=== PATIENT | female | born 1955 | race Caucasian/White ===

== ENCOUNTER 2016-07-29 14:46 | Inpatient (IN) | payer BC, MEDICAID ==
[2016-07-29] MEDS ORDERED: Bumetanide 2.5 MG/10 ML MDV IVPUSH ONE (15:15)
[2016-07-29] MEDS ORDERED: Albuterol 0.083% 2.5 MG/3 ML Neb Soln NEB PRN (16:06)
[2016-07-29] MEDS ORDERED: Polyethylene Glycol 3350 Powder 17 GM Packet PO PRN (16:06)
[2016-07-29] MEDS ORDERED: Ondansetron 4 MG Tab.DIS PO PRN (16:06)
[2016-07-29] MEDS ORDERED: Sodium Chloride 0.9% 10 ML Syringe FLUSH PRN (16:06)
[2016-07-29] MEDS ORDERED: Magnesium Hydroxide 400 MG/5 ML Susp 30 ML Cup PO PRN (16:06)
[2016-07-29] MEDS ORDERED: Benzonatate 100 MG Cap PO PRN (16:18)
--- NOTE | 2016-07-29 16:32 | PCM.HP ---
H&P History of Present Illness - General Date of Service: 07/29/16 Admit Problem/Dx: Admission Diagnosis/Problem Admission Diagnosis/Problem CHF, Congestive heart failure Source of Information: Patient, Family, Provider History Limitations: Reports: No limitations - History of Present Illness Initial Comments - Free Text/Narative: Dipti presents as a direct admission from the internal medicine clinic where she presented with fever and shortness of breath. She hasn't felt well for the last several days but has noticed subjective fevers at home as well as progressive shortness of breath and a dry cough. She has not measured any temperatures at home. She complains of some mild intermittent crampy abdominal pain but doesn't seem to have trigger. Comes and goes on its own. She has not had any diarrhea. She feels a little more short of breath than usual and reports an increase in her dry cough compared to baseline. She does have some pain in her chest but only with coughing. She hasn't noticed much of an increase in her lower extremity swelling but did note in the clinic today that her weight was up 11 pounds from 2 weeks ago. She does admit that she has not been keeping track of her weight for the last few days. She has not noticed any change in urinary frequency, urgency and does not have dysuria. Appetite has been fine. Energy has been decreased the past few days. After evaluation in the clinic there was concern about congestive heart failure with her weight gain as well as probable urinary tract infection. Direct admission was recommended. Chest Pain Score (Numeric/FACES): 6 - Related Data Allergies/Adverse Reactions: Allergies Allergy/AdvReac Type Severity Reaction Status Date / Time cephalexin monohydrate Allergy Unknown flusing Verified 07/12/16 17:02 [From Keflex] levofloxacin [Levofloxacin] Allergy Rash Verified 07/12/16 17:02 amoxicillin [Amoxicillin] AdvReac Vomiting Verified 07/12/16 17:02 amoxicillin trihydrate AdvReac Vomiting Verified 07/12/16 17:02 [From Augmentin] erythromycin base AdvReac Nausea and Verified 07/12/16 17:02 [Erythromycin Base] Vomiting potassium clavulanate AdvReac Vomiting Verified 07/12/16 17:02 [From Augmentin] Home Medications: Home Meds Albuterol [Ventolin HFA] 2 puff INH ASDIRECTED PRN 03/01/13 [History] Escitalopram [Lexapro] 30 mg PO BEDTIME 03/01/13 [History] Ipratropium/Albuterol Sulfate [Duoneb 0.5 MG-3 MG/3 ML] 3 ml INH QID 03/01/13 [ History] Metoprolol Succinate [Toprol XL] 25 mg PO BEDTIME 03/01/13 [History] Verapamil HCl [Verelan] 180 mg PO BIDAC 03/01/13 [History] Aspirin 81 mg PO DAILY 08/30/13 [History] Simvastatin [Zocor] 10 mg PO BEDTIME 08/30/13 [History] Magnesium Oxide 400 mg PO BID 09/01/13 [History] Lactobacillus Acidophilus [Probiotic] 1 cap PO BID 04/05/14 [History] Cyclobenzaprine [Flexeril] 10 mg PO TID PRN 09/27/14 [History] Folic Acid 1 mg PO DAILY 09/27/14 [History] metFORMIN [Glucophage] 850 mg PO BID 09/27/14 [History] Gabapentin [Neurontin] 300 mg PO BID 03/28/15 [History] Lisinopril 20 mg PO DAILY 03/28/15 [History] Oxybutynin [Oxybutynin ER] 10 mg PO DAILY 03/28/15 [History] Promethazine [Phenergan] 25 mg PO Q8H PRN 03/28/15 [History] traZODone 50 mg PO BEDTIME 03/28/15 [History] LORazepam [Ativan] 0.5 mg PO ASDIRECTED PRN 04/24/15 [History] Potassium Chloride [Klor-Con M20] 20 meq PO BID #60 tab.er 07/29/15 [Rx] Cyanocobalamin (Vitamin B12) [Vitamin B12] 1,000 mcg IM Q30D 09/26/15 [History] Ergocalciferol (Vitamin D2) [Vitamin D2] 50,000 unit PO WEEKLY 09/26/15 [History ] Ferrous Sulfate 325 mg PO DAILY 09/26/15 [History] Fluticasone/Salmeterol [Advair Diskus 500-50] 1 puff INH BID 12/05/15 [History] azaTHIOprine [Azathioprine] 150 mg PO DAILY 12/05/15 [History] ALPRAZolam [Alprazolam] 0.25 mg PO ASDIRECTED 04/12/16 [History] Isosorbide Mononitrate [Isosorbide Mononitrate ER] 30 mg PO DAILY 04/12/16 [ History] Morphine Sulfate 15 mg PO Q4H PRN 04/12/16 [History] Insulin Detemir [Levemir Flextouch] 30 units SQ BEDTIME 05/10/16 [History] Prednisone [IMW: predniSONE] 20 mg PO WITHBREAKFAST 05/10/16 [History] Sucralfate [Carafate] 1 gm PO QIDACANDBED 05/10/16 [History] Bumetanide [Bumex] 2 mg PO BID #60 tablet 05/17/16 [Rx] Insulin Aspart [NovoLOG] 10 unit SUBCUT TIDMEALS 06/05/16 [History] Pantoprazole [Protonix] 40 mg PO DAILY 07/13/16 [History] Clotrimazole [Mycelex] 10 mg PO DAILY 07/29/16 [History] Past Medical History HEENT History: Reports: Impaired vision Cardiovascular History: Reports: Hypertension, SOB on exertion, Other (see below ) Other Cardiovascular History: Extra heart beat Respiratory History: Reports: Asthma, Bronchitis, recurrent, COPD, Pneumonia, recurrent, SOB, Other (see below) Other Respiratory History: Home O2 and nebs Gastrointestinal History: Reports: Cholelithiasis, GERD, Other (see below) Other Gastrointestinal History: history of bezoars Genitourinary History: Reports: Other (see below) Other Genitourinary History: mass by bladder taken out non cancer 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, Musculoskeletal History: Reports: Back pain, chronic, Osteoarthritis, RA Neurological History: Reports: Migraines Psychiatric History: Reports: Depression Endocrine/Metabolic History: Reports: Diabetes, type II, Obesity/BMI 30+ Hematologic History: Reports: B12 deficiency Immunologic History: Reports: Other (see below) Other Immunologic History: on medication that affects immunity Oncologic (Cancer) History: Reports: None Dermatologic History: Reports: None - Infectious Disease History Infectious Disease History: Reports: Chicken pox, Measles, Mumps - Past Surgical History HEENT Surgical History: Reports: Cataract surgery, Tonsillectomy, Other (see below) Other HEENT Surgeries/Procedures: implanted lens in r eye Cardiovascular Surgical History: Reports: None Respiratory Surgical History: Reports: None GI Surgical History: Reports: Cholecystectomy, Colonoscopy, EGD Female Surgical History: Reports: Hysterectomy, Tubal ligation, Other (see below) Other Female Surgeries/Procedures: Tubal plasty Endocrine Surgical History: Reports: None Neurological Surgical History: Reports: None Musculoskeletal Surgical History: Reports: Knee replacement, Other (see below) Other Musculoskeletal Surgeries/Procedures:: Right knee Dermatological Surgical History: Reports: None Social & Family History - Family History HEENT: Reports: Cataract Cardiac: Reports: CAD Respiratory: Reports: Asthma : Reports: Other (see below) Other Family History: mom kidney CA Musculoskeletal: Reports: Arthritis, RA Neurological: Reports: CVA, Seizure Endocrine/Metabolic: Reports: Diabetes, type II - Tobacco Use Smoking Status *Q: Never Smoker Years of Tobacco use: 15 Packs/Tins Daily: 1 Used Tobacco, but Quit: Yes Month Tobacco Last Used: 1981 Second Hand Smoke Exposure: No - Caffeine Use Caffeine Use: Reports: None Other Caffeine Use: 3 bottles a day - Alcohol Use Days Per Week of Alcohol Use: 0 - Recreational Drug Use Recreational Drug Use: No - Living Situation & Occupation Living situation: Reports: (lives one block from Hospital, 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 Pertinent positives and negatives are noted in the history of present illness. All other systems were reviewed and were negative except as noted. Exam - Exam Exam: See Below - Vital Signs Vital Signs: Last Vital Signs Temp 38.1 C 07/29/16 15:04 Pulse 100 07/29/16 15:04 Resp BP 135/86 07/29/16 15:22 Pulse Ox 92 L 07/29/16 15:04 Weight: 139.253 kg - Exam Quality Assessment: supplemental oxygen. No: urinary catheter General: alert, oriented, cooperative, mild distress HEENT: Mucosa moist & pink. No: Scleral icterus Neck: supple, trachea midline Lungs: Normal respiratory effort, Rales (mild both lung bases). No: Wheezing Cardiovascular: regular rate, regular rhythm, systolic murmur (left lower sternal border) Abdomen: normal bowel sounds, soft. No: distention, tenderness Back Exam: normal inspection, full range of motion Extremities: normal pulses, edema (mild pitting edema to near the knee bilaterally). No: cyanosis Peripheral Pulses: 2+: dorsalis pedis (L), dorsalis pedis (R) Skin: warm, dry, intact Neuro Extensive - Mental Status: alert, oriented x3, nl response to commands Neuro Extensive - Motor, Sensory, Reflexes: CN II-XII intact. No: dysarthria, abnormal motor, tremor Psychiatric: alert, normal affect *Q Meaningful Use (ADM) - VTE *Q VTE Criteria *Q: - Stroke *Q Stroke Criteria *Q: - AMI *Q AMI Criteria *Q: - Problem List (1) Acute cystitis SNOMED Code(s): 83173179 ICD Code: N30.00 - ACUTE CYSTITIS WITHOUT HEMATURIA Status: Acute Current Visit: Yes Qualifiers: Hematuria presence: without hematuria Qualified Code(s): N30.00 - Acute cystitis without hematuria (2) (HFpEF) heart failure with preserved ejection fraction SNOMED Code(s): 49118087 ICD Code: I50.30 - UNSPECIFIED DIASTOLIC (CONGESTIVE) HEART FAILURE Status : Chronic Current Visit: No (3) Diabetes mellitus type 2 SNOMED Code(s): 32123109 ICD Code: E11.9 - TYPE 2 DIABETES MELLITUS WITHOUT COMPLICATIONS Status: Chronic Priority: High Current Visit: No (4) Rheumatoid arthritis SNOMED Code(s): 52015174 ICD Code: M06.9 - RHEUMATOID ARTHRITIS, UNSPECIFIED Status: Chronic Priority: Medium Current Visit: No Qualifiers: Rheumatoid arthritis location: multiple sites Rheumatoid factor presence: unspecified presence Qualified Code(s): M06.9 - Rheumatoid arthritis, unspecified Problem List Initiated/Reviewed/Updated: Yes Orders Last 24hrs: Active Orders 24 hr Category Date Time Status Patient Status [ADT] Routine ADT 07/29/16 16:06 Active Diabetes Education [RC] Click to Edit Care 07/29/16 16:22 Ordered Intake and Output [RC] QSHIFT Care 07/29/16 16:07 Active Notify Provider Vital Signs [RC] ASDIRECTED Care 07/29/16 16:07 Active Notify Provider [RC] PRN Care 07/29/16 16:22 Ordered Oxygen Therapy [RC] PRN Care 07/29/16 16:06 Active RT Aerosol Therapy [RC] ASDIRECTED Care 07/29/16 16:09 Active Up With Assistance [RC] ASDIRECTED Care 07/29/16 16:06 Active VTE/DVT Education [RC] Per Unit Routine Care 07/29/16 16:06 Active Vital Signs [RC] Q4H Care 07/29/16 16:06 Active Consistent Carbohydrate Diet [DIET] Diet 07/29/16 Dinner Active BASIC METABOLIC PANEL,BMP [CHEM] AM Lab 07/30/16 05:11 Ordered CBC W/O DIFF,HEMOGRAM [HEME] AM Lab 07/30/16 05:11 Ordered CULTURE URINE [RM] Routine Lab 07/29/16 16:05 Received GLUCOSE POC LAB TO COLLECT [POC] QIDACANDBED Lab 07/29/16 16:30 Ordered GLUCOSE POC LAB TO COLLECT [POC] QIDACANDBED Lab 07/29/16 21:00 Ordered GLUCOSE POC LAB TO COLLECT [POC] QIDACANDBED Lab 07/30/16 07:30 Ordered GLUCOSE POC LAB TO COLLECT [POC] QIDACANDBED Lab 07/30/16 11:30 Ordered GLUCOSE POC LAB TO COLLECT [POC] QIDACANDBED Lab 07/30/16 16:30 Ordered GLUCOSE POC LAB TO COLLECT [POC] QIDACANDBED Lab 07/30/16 21:00 Ordered GLUCOSE POC LAB TO COLLECT [POC] QIDACANDBED Lab 07/31/16 07:30 Ordered GLUCOSE POC LAB TO COLLECT [POC] QIDACANDBED Lab 07/31/16 11:30 Ordered GLUCOSE POC LAB TO COLLECT [POC] QIDACANDBED Lab 07/31/16 16:30 Ordered GLUCOSE POC LAB TO COLLECT [POC] QIDACANDBED Lab 07/31/16 21:00 Ordered GLUCOSE POC LAB TO COLLECT [POC] QIDACANDBED Lab 08/01/16 07:30 Ordered GLUCOSE POC LAB TO COLLECT [POC] QIDACANDBED Lab 08/01/16 11:30 Ordered GLUCOSE POC LAB TO COLLECT [POC] QIDACANDBED Lab 08/01/16 16:30 Ordered GLUCOSE POC LAB TO COLLECT [POC] QIDACANDBED Lab 08/01/16 21:00 Ordered GLUCOSE POC LAB TO COLLECT [POC] QIDACANDBED Lab 08/02/16 07:30 Ordered GLUCOSE POC LAB TO COLLECT [POC] QIDACANDBED Lab 08/02/16 11:30 Ordered GLUCOSE POC LAB TO COLLECT [POC] QIDACANDBED Lab 08/02/16 16:30 Ordered GLUCOSE POC LAB TO COLLECT [POC] QIDACANDBED Lab 08/02/16 21:00 Ordered GLUCOSE POC LAB TO COLLECT [POC] QIDACANDBED Lab 08/03/16 07:30 Ordered GLUCOSE POC LAB TO COLLECT [POC] QIDACANDBED Lab 08/03/16 11:30 Ordered GLUCOSE POC LAB TO COLLECT [POC] QIDACANDBED Lab 08/03/16 16:30 Ordered GLUCOSE POC LAB TO COLLECT [POC] QIDACANDBED Lab 08/03/16 21:00 Ordered GLUCOSE POC LAB TO COLLECT [POC] QIDACANDBED Lab 08/04/16 07:30 Ordered GLUCOSE POC LAB TO COLLECT [POC] QIDACANDBED Lab 08/04/16 11:30 Ordered ALPRAZolam [Xanax] Med 07/29/16 16:12 Ordered 0.25 mg PO TID PRN Acetaminophen [Tylenol] Med 07/29/16 16:06 Ordered 650 mg PO Q4H PRN Albuterol [Proventil Neb Soln] Med 07/29/16 16:06 Ordered 2.5 mg NEB Q4H PRN Albuterol/Ipratropium [DuoNeb 3.0-0.5 MG/3 ML] Med 07/29/16 22:00 Ordered 3 ml NEB QID Aspirin Med 07/30/16 09:00 Ordered 81 mg PO DAILY Benzonatate [Tessalon Perles] Med 07/29/16 16:18 Ordered 100 mg PO TID PRN Clotrimazole [Mycelex] Med 07/30/16 09:00 Ordered 10 mg PO DAILY Enoxaparin [Lovenox] Med 07/30/16 09:00 Ordered 40 mg SUBCUT DAILY Escitalopram [Lexapro] Med 07/29/16 21:00 Ordered 30 mg PO BEDTIME Ferrous Sulfate Med 07/30/16 09:00 Ordered 325 mg PO DAILY Fluticasone/Salmeterol [Advair Diskus 500-50] Med 07/29/16 21:00 Ordered 1 puff INH BID Folic Acid Med 07/30/16 09:00 Ordered 1 mg PO DAILY Gabapentin [Neurontin] Med 07/29/16 21:00 Ordered 300 mg PO BID Insulin Aspart [NovoLOG] Med 07/29/16 17:00 Ordered 10 unit SUBCUT TIDMEALS Insulin Aspart [NovoLOG] Med 07/29/16 17:00 Ordered See Protocol SUBCUT QIDACANDBED Insulin Detemir [Levemir] Med 07/29/16 21:00 Ordered 30 unit SUBCUT BEDTIME Isosorbide Mononitrate [Imdur] Med 07/30/16 09:00 Ordered 30 mg PO DAILY LORazepam [Ativan] Med 07/29/16 16:06 Ordered 0.5 - 1 mg IV Q4H PRN Lactobacillus Acidophilus [Probiotic] Med 07/29/16 21:00 Ordered 1 cap PO BID Lisinopril [Prinivil] Med 07/30/16 09:00 Ordered 20 mg PO DAILY Magnesium Hydroxide [Milk of Magnesia] Med 07/29/16 16:06 Ordered 30 ml PO Q12H PRN Magnesium Oxide Med 07/29/16 21:00 Ordered 400 mg PO BID Metoprolol Succinate [Toprol XL] Med 07/29/16 21:00 Ordered 25 mg PO BEDTIME Morphine Med 07/29/16 16:12 Ordered 30 mg PO Q4H PRN Ondansetron [Zofran ODT] Med 07/29/16 16:06 Ordered 4 mg PO Q6H PRN Oxybutynin [Oxybutynin ER] Med 07/30/16 09:00 Ordered 10 mg PO DAILY Pantoprazole [Protonix] Med 07/30/16 07:30 Ordered 40 mg PO ACBREAKFAST Polyethylene Glycol 3350 [MiraLAX] Med 07/29/16 16:06 Ordered 17 gm PO DAILY PRN Potassium Chloride [Klor-Con M20] Med 07/29/16 21:00 Ordered 20 meq PO BID Promethazine [Phenergan] Med 07/29/16 16:12 Ordered 25 mg PO Q8H PRN Simvastatin [Zocor] Med 07/29/16 21:00 Ordered 10 mg PO BEDTIME Sodium Chloride 0.9% [Saline Flush] Med 07/29/16 16:06 Ordered 10 ml FLUSH ASDIRECTED PRN Sucralfate [Carafate] Med 07/29/16 17:00 Ordered 1 gm PO QIDACANDBED Verapamil HCl [Verelan] Med 02/27/17 16:30 Ordered 180 mg PO BIDAC azaTHIOprine [Imuran] Med 07/30/16 09:00 Ordered 150 mg PO DAILY cefTAZidime [Fortaz] 1 gm Med 07/29/16 22:00 Ordered Sodium Chloride 0.9% [Normal Saline] 50 ml IV Q8HR metFORMIN [Glucophage] Med 07/29/16 21:00 Ordered 850 mg PO BID predniSONE Med 07/29/16 16:30 Ordered 20 mg PO BIDAC traZODone Med 07/29/16 21:00 Ordered 50 mg PO BEDTIME Saline Lock Insert [OM.PC] Routine Oth 07/29/16 16:06 Ordered Resuscitation Status Routine Resus Stat 07/29/16 16:06 Ordered Medication Orders Acetaminophen (Tylenol) 650 mg PO Q4H PRN PRN Reason: Pain (Mild 1-3)/fever Albuterol (Proventil Neb Soln) 2.5 mg NEB Q4H PRN PRN Reason: Shortness Of Breath/wheezing Albuterol/Ipratropium (Duoneb 3.0-0.5 Mg/3 Ml) 3 ml NEB QIDRT [facility] Alprazolam (Xanax) 0.25 mg PO TID PRN PRN Reason: Anxiety Aspirin (Aspirin) 81 mg PO DAILY [facility] Azathioprine (Imuran) 150 mg PO DAILY [facility] Benzonatate (Tessalon Perles) 100 mg PO TID PRN PRN Reason: Cough Clotrimazole (Mycelex) 10 mg PO DAILY [facility] Enoxaparin Sodium (Lovenox) 40 mg SUBCUT DAILY [facility] Escitalopram Oxalate (Lexapro) 30 mg PO BEDTIME [facility] Ferrous Sulfate (Ferrous Sulfate) 325 mg PO DAILY [facility] Folic Acid (Folic Acid) 1 mg PO DAILY [facility] Gabapentin (Neurontin) 300 mg PO BID [facility] Ceftazidime 1 gm/ Sodium (Chloride) 50 mls @ 100 mls/hr IV Q8HR [facility] Isosorbide Mononitrate (Imdur) 30 mg PO DAILY [facility] Lisinopril (Prinivil) 20 mg PO DAILY [facility] Lorazepam (Ativan) 0.5 - 1 mg IV Q4H PRN PRN Reason: Nausea/Vomiting Magnesium Hydroxide (Milk Of Magnesia) 30 ml PO Q12H PRN PRN Reason: Constipation Magnesium Oxide (Magnesium Oxide) 400 mg PO BID [facility] Metformin HCl (Glucophage) 850 mg PO BID [facility] Metoprolol Succinate (Toprol Xl) 25 mg PO BEDTIME [facility] Morphine Sulfate (Morphine) 30 mg PO Q4H PRN PRN Reason: shortness of breath Non-Formulary Medication (Fluticasone/Salmeterol [Advair Diskus 500-50]) 1 puff INH BID [facility] Non-Formulary Medication (Lactobacillus Acidophilus [Probiotic]) 1 cap PO BID [facility] Non-Formulary Medication (Oxybutynin [Oxybutynin Er]) 10 mg PO DAILY [facility] Non-Formulary Medication (Simvastatin [Zocor]) 10 mg PO BEDTIME [facility] Non-Formulary Medication (Verapamil Hcl [Verelan]) 180 mg PO BIDAC [facility] Ondansetron HCl (Zofran Odt) 4 mg PO Q6H PRN PRN Reason: Nausea able to take PO Pantoprazole Sodium (Protonix) 40 mg PO ACBREAKFAST [facility] Polyethylene Glycol (Miralax) 17 gm PO DAILY PRN PRN Reason: Constipation Potassium Chloride (Klor-Con M20) 20 meq PO BID [facility] Prednisone (Prednisone) 20 mg PO BIDAC [facility] Promethazine HCl (Phenergan) 25 mg PO Q8H PRN PRN Reason: Nausea Sodium Chloride (Saline Flush) 10 ml FLUSH ASDIRECTED PRN PRN Reason: Keep Vein Open Sucralfate (Carafate) 1 gm PO QIDACANDBED [facility] Trazodone HCl (Trazodone) 50 mg PO BEDTIME [facility] Assessment/Plan Comment:: Assessment and plan - Acute cystitis - no symptoms but urine sample suggestive of infection. Low- grade temperatures. History of similar. Antibiotics will be tricky with multiple allergies. -Urine culture -Ceftazidime Subacute exacerbation of congestive heart failure with preserved ejection fraction - weight is up 11 pounds from most recent stable dry weight. Probable trigger for the exacerbation as the infection. Hemodynamically stable at this time. -IV bumetanide twice daily -Monitor electrolytes -Continue medical management including beta marsha and long-acting nitrate -Morphine as needed for air hunger Rheumatoid arthritis - often has difficulty with increasing symptoms around the time of an infection. -Increase prednisone to 40 mg total daily dose Insulin-dependent diabetes mellitus, suboptimally controlled - anticipate bump in blood sugars with increased dose of prednisone. Sugars suboptimally controlled at baseline. -Continue long-acting insulin -Mealtime insulin -Sliding-scale Maintenance issues - - DVT prophylaxis - enoxaparin - GI prophylaxis - PPI - Nutrition - consistent carbohydrate diet - Dougherty catheter - not indicated CODE STATUS - full code Admission justification - This patient will be admitted for inpatient services and is medically appropriate meeting medical necessity for inpatient admission as outlined in my documentation. I reasonably expect the patient will require inpatient services that span a period time over 2 midnights. I reasonably expect this patient to be discharged or transferred within 96 hours after admission to the [facility]. Disposition - anticipate discharge to home after the hospital stay Primary care physician - Dr. Sunshine Bolivar M.D.
[2016-07-29] MEDS: Acetaminophen 325 MG Tab PO PRN (16:54)
[2016-07-29] MEDS: cefTAZidime 1 GM in Sodium Chloride 0.9% 50 ML IV SCH (17:11)
[2016-07-29] MEDS: Insulin Aspart 100 Units/ML 3 ML Pen SUBCUT SCH ×3 (17:11→22:37)
[2016-07-29] MEDS: Sucralfate 1 GM Tab PO SCH ×2 (17:16→22:29)
[2016-07-29] MEDS: Potassium Chloride 20 MEQ Tab.ER PO SCH (17:16)
[2016-07-29] MEDS: predniSONE 20 MG Tab PO SCH (17:17)
[2016-07-29] MEDS: Verapamil 180 MG Tab.ER PO SCH (17:17)
[2016-07-29] MEDS ORDERED: Insulin Detemir 100 Units/ML 3 ML Pen SUBCUT SCH (21:00)
[2016-07-29] MEDS ORDERED: Escitalopram 20 MG Tab PO SCH (21:00)
[2016-07-29] MEDS: Albuterol/Ipratropium 3.0-0.5 MG/3 ML Neb Soln NEB SCH (21:24)
[2016-07-29] MEDS: LORazepam 2 MG/ML MDV IV PRN (21:35)
[2016-07-29] MEDS: Lactobacillus Rhamnosus GG (Probiotic) Cap PO SCH (22:27)
[2016-07-29] MEDS: Formoterol/Mometasone 200-5 MCG 8.8 GM Inhaler IH SCH (22:28)
[2016-07-29] MEDS: Magnesium Oxide 400 MG Tab PO SCH (22:30)
[2016-07-29] MEDS: ESCITALOPRAM PO SCH ×2 (22:30)
[2016-07-29] MEDS: Gabapentin 300 MG Cap PO SCH (22:31)
[2016-07-29] MEDS: Simvastatin 20 MG Tab PO SCH (22:33)
[2016-07-29] MEDS: traZODone 50 MG Tab PO SCH (22:34)
[2016-07-29] MEDS: Metoprolol Succinate 25 MG Tab.ER PO SCH (22:34)
[2016-07-30] MEDS: ALPRAZolam 0.25 MG Tab PO PRN ×2 (00:33→21:21)
[2016-07-30] MEDS: cefTAZidime 1 GM in Sodium Chloride 0.9% 50 ML IV SCH ×3 (00:33→18:24)
[2016-07-30] MEDS: Acetaminophen 325 MG Tab PO PRN ×3 (04:55→13:16)
[2016-07-30] MEDS: Albuterol/Ipratropium 3.0-0.5 MG/3 ML Neb Soln NEB SCH ×4 (07:11→20:49)
[2016-07-30] MEDS: Formoterol/Mometasone 200-5 MCG 8.8 GM Inhaler IH SCH ×2 (07:11→21:03)
[2016-07-30] MEDS: Clotrimazole 10 MG Troche PO SCH (08:56)
[2016-07-30] MEDS: Isosorbide Mononitrate 30 MG Tab.ER PO SCH (08:56)
[2016-07-30] MEDS: Lisinopril 20 MG Tab PO SCH (08:57)
[2016-07-30] MEDS: Pantoprazole 40 MG Tab.CR PO SCH (08:57)
[2016-07-30] MEDS: Enoxaparin 40 MG/0.4 ML Syringe SUBCUT SCH (08:58)
[2016-07-30] MEDS: Oxybutynin 5 MG Tab PO SCH ×2 (09:00→21:04)
[2016-07-30] MEDS: Folic Acid 1 MG Tab PO SCH (09:01)
[2016-07-30] MEDS: Sucralfate 1 GM Tab PO SCH ×4 (09:01→21:04)
[2016-07-30] MEDS: Magnesium Oxide 400 MG Tab PO SCH ×2 (09:02→21:05)
[2016-07-30] MEDS: Aspirin 81 MG Tab.Chew PO SCH (09:02)
[2016-07-30] MEDS: Lactobacillus Rhamnosus GG (Probiotic) Cap PO SCH ×2 (09:02→21:04)
[2016-07-30] MEDS: Ferrous Sulfate 325 MG Tab PO SCH (09:03)
[2016-07-30] MEDS: Verapamil 180 MG Tab.ER PO SCH ×2 (09:04→17:31)
[2016-07-30] MEDS: Potassium Chloride 20 MEQ Tab.ER PO SCH ×2 (09:08→18:29)
[2016-07-30] MEDS: Gabapentin 300 MG Cap PO SCH ×2 (09:08→21:05)
[2016-07-30] MEDS: Insulin Aspart 100 Units/ML 3 ML Pen SUBCUT SCH ×7 (09:10→21:06)
[2016-07-30] MEDS: predniSONE 20 MG Tab PO SCH (09:14)
[2016-07-30] MEDS: Promethazine 25 MG Tab PO PRN (12:27)
--- NOTE | 2016-07-30 15:10 | PCM.PN ---
- General Info Date of Service: 07/30/16 Functional Status: Reports: pain controlled, tolerating diet - Review of Systems General: Reports: fever, weakness Pulmonary: Reports: shortness of breath, cough Cardiovascular: Reports: chest pain, edema Systems Review Comment:: no acute events overnight but does not feel well this morning. Aches all over the place and has no energy. She has been sleepier than usual. Still complaining of a dry cough and some increased shortness of breath. No complaints of abdominal pain or nausea. Feels weak and unsteady on her feet. Blood sugars have risen with the initiation of steroids. Blood pressures have dipped slightly throughout the day. She has had a nearly persistent temperature elevation throughout the morning. - Patient Data Vitals - most recent: Last Vital Signs Temp 38.3 C H 07/30/16 13:16 Pulse 93 07/30/16 13:09 Resp 18 07/30/16 10:33 BP 112/70 07/30/16 13:09 Pulse Ox 90 L 07/30/16 13:09 Weight - most recent: 136.078 kg I&O - last 24 hours: Intake & Output 07/30/16 07/30/16 07/30/16 06:59 14:59 22:59 Intake Total 120 410 Output Total 900 Balance -780 410 Lab Results last 24 hrs: Laboratory Results - last 24 hr 07/30/16 07/30/16 Range/Units 04:55 04:55 WBC 8.0 (4.5-11.0) K/uL RBC 4.33 (3.30-5.50) M/uL Hgb 10.8 L (12.0-15.0) g/dL Hct 37.3 (36.0-48.0) % MCV 86 (80-98) fL MCH 25 L (27-31) pg MCHC 29 L (32-36) % Plt Count 172 (150-400) K/uL Sodium 142 (140-148) mmol/L Potassium 3.9 (3.6-5.2) mmol/L Chloride 101 (100-108) mmol/L Carbon Dioxide 35 H (21-32) mmol/L Anion Gap 9.9 (5.0-14.0) mmol/L BUN 15 (7-18) mg/dL Creatinine 0.8 (0.6-1.0) mg/dL Est Cr Clr Drug Dosing 68.26 mL/min Estimated GFR (MDRD) > 60 (>60) Glucose 182 H (74-106) mg/dL Calcium 8.5 (8.5-10.1) mg/dL Frank Results last 24 hrs: Microbiology 07/29/16 16:05 Urine Culture - Preliminary Urine, Clean Catch Med Orders - Current: Current Medications Acetaminophen (Tylenol) 650 mg PO Q4H PRN PRN Reason: Pain (Mild 1-3)/fever Last Admin: 07/30/16 13:16 Dose: 650 mg Albuterol (Proventil Neb Soln) 2.5 mg NEB Q4H PRN PRN Reason: Shortness Of Breath/wheezing Albuterol/Ipratropium (Duoneb 3.0-0.5 Mg/3 Ml) 3 ml NEB QIDRT [facility] Last Admin: 07/30/16 11:10 Dose: 3 ml Alprazolam (Xanax) 0.25 mg PO TID PRN PRN Reason: Anxiety Last Admin: 07/30/16 00:33 Dose: 0.25 mg Aspirin (Aspirin) 81 mg PO DAILY [facility] Last Admin: 07/30/16 09:02 Dose: 81 mg Azathioprine (Imuran) 150 mg PO DAILY [facility] Last Admin: 07/30/16 09:00 Dose: 150 mg Benzonatate (Tessalon Perles) 100 mg PO TID PRN PRN Reason: Cough Last Admin: 07/30/16 08:59 Dose: 100 mg Bumetanide (Bumex) 2 mg IVPUSH BIDDIURETIC [facility] Clotrimazole (Mycelex) 10 mg PO DAILY [facility] Last Admin: 07/30/16 08:56 Dose: 10 mg Enoxaparin Sodium (Lovenox) 40 mg SUBCUT DAILY [facility] Last Admin: 07/30/16 08:58 Dose: 40 mg Escitalopram Oxalate 10 mg/ (Escitalopram Oxalate 20 mg) 30 mg PO BEDTIME [facility] Last Admin: 07/29/16 22:30 Dose: 30 mg Ferrous Sulfate (Ferrous Sulfate) 325 mg PO DAILY [facility] Last Admin: 07/30/16 09:03 Dose: 325 mg Folic Acid (Folic Acid) 1 mg PO DAILY [facility] Last Admin: 07/30/16 09:01 Dose: 1 mg Gabapentin (Neurontin) 300 mg PO BID [facility] Last Admin: 07/30/16 09:08 Dose: 300 mg Heparin Sodium (Porcine) (Heparin Lock Flush 100 Units/Ml Syringe) 500 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 Last Admin: 07/30/16 10:44 Dose: 500 units Ceftazidime 1 gm/ Sodium (Chloride) 50 mls @ 100 mls/hr IV Q8H [facility] Last Admin: 07/30/16 09:54 Dose: 100 mls/hr Azithromycin 500 mg/ Sodium (Chloride) 250 mls @ 250 mls/hr IV Q24H [facility] Insulin Aspart (Novolog) 0 unit SUBCUT QIDACANDBED [facility] PRN Reason: Protocol Last Admin: 07/30/16 13:04 Dose: 3 unit Insulin Aspart (Novolog) 10 unit SUBCUT TIDMEALS [facility] Last Admin: 07/30/16 13:06 Dose: 10 unit Insulin Detemir (Levemir) 40 unit SUBCUT BEDTIME [facility] Isosorbide Mononitrate (Imdur) 30 mg PO DAILY [facility] Last Admin: 07/30/16 08:56 Dose: 30 mg Lactobacillus Rhamnosus (Culturelle) 1 cap PO BID [facility] Last Admin: 07/30/16 09:02 Dose: 1 cap Lisinopril (Prinivil) 20 mg PO DAILY [facility] Last Admin: 07/30/16 08:57 Dose: 20 mg Lorazepam (Ativan) 0.5 - 1 mg IV Q4H PRN PRN Reason: Nausea/Vomiting Last Admin: 07/29/16 21:35 Dose: 1 mg Magnesium Hydroxide (Milk Of Magnesia) 30 ml PO Q12H PRN PRN Reason: Constipation Magnesium Oxide (Magnesium Oxide) 400 mg PO BID [facility] Last Admin: 07/30/16 09:02 Dose: 400 mg Metformin HCl (Glucophage) 850 mg PO BIDMEALS [facility] Last Admin: 07/30/16 08:55 Dose: 850 mg Methylprednisolone Sodium Succinate (Solu-Medrol) 62.5 mg IVPUSH Q8H [facility] Metoprolol Succinate (Toprol Xl) 25 mg PO BEDTIME [facility] Last Admin: 07/29/16 22:34 Dose: 25 mg Mometasone Furoate/Formoterol Fumar (Dulera 200-5 Mcg) 2 puff IH BIDRT [facility] Last Admin: 07/30/16 07:11 Dose: 2 puff Morphine Sulfate (Morphine) 30 mg PO Q4H PRN PRN Reason: shortness of breath Last Admin: 07/30/16 04:54 Dose: 30 mg Ondansetron HCl (Zofran Odt) 4 mg PO Q6H PRN PRN Reason: Nausea able to take PO Oxybutynin Chloride (Oxybutynin) 5 mg PO BID [facility] Last Admin: 07/30/16 09:00 Dose: 5 mg Pantoprazole Sodium (Protonix) 40 mg PO ACBREAKFAST [facility] Last Admin: 07/30/16 08:57 Dose: 40 mg Polyethylene Glycol (Miralax) 17 gm PO DAILY PRN PRN Reason: Constipation Potassium Chloride (Klor-Con M20) 20 meq PO BIDMEALS [facility] Last Admin: 07/30/16 09:08 Dose: 20 meq Promethazine HCl (Phenergan) 25 mg PO Q8H PRN PRN Reason: Nausea Last Admin: 07/30/16 12:27 Dose: 25 mg Simvastatin (Zocor) 10 mg PO BEDTIME [facility] Last Admin: 07/29/16 22:33 Dose: 10 mg Sodium Chloride (Saline Flush) 10 ml FLUSH ASDIRECTED PRN PRN Reason: Keep Vein Open Sucralfate (Carafate) 1 gm PO QIDACANDBED [facility] Last Admin: 07/30/16 12:29 Dose: 1 gm Trazodone HCl (Trazodone) 50 mg PO BEDTIME [facility] Last Admin: 07/29/16 22:34 Dose: 50 mg Verapamil HCl (Calan Sr) 180 mg PO BIDAC [facility] Last Admin: 07/30/16 09:04 Dose: 180 mg Discontinued Medications Bumetanide (Bumex) 2 mg IVPUSH ONETIME ONE Stop: 07/29/16 15:16 Last Admin: 07/29/16 15:22 Dose: 2 mg Heparin Sodium (Porcine) (Heparin Lock Flush 100 Units/Ml Syringe) Confirm Administered Dose 500 units .ROUTE .STK-MED ONE Stop: 07/29/16 15:15 Last Admin: 07/29/16 15:25 Dose: 500 units Heparin Sodium (Porcine) (Heparin Lock Flush 100 Units/Ml Syringe) Confirm Administered Dose 500 units .ROUTE .STK-MED ONE Stop: 07/29/16 22:03 Last Admin: 07/29/16 22:35 Dose: 500 units Heparin Sodium (Porcine) (Heparin Lock Flush 100 Units/Ml Syringe) Confirm Administered Dose 500 units .ROUTE .STK-MED ONE Stop: 07/30/16 00:32 Last Admin: 07/30/16 10:45 Dose: Not Given Insulin Detemir (Levemir) 30 unit SUBCUT BEDTIME [facility] Last Admin: 07/29/16 22:41 Dose: 30 units Prednisone (Prednisone) 20 mg PO BIDMEALS [facility] Last Admin: 07/30/16 09:14 Dose: 20 mg - Exam Quality Assessment: supplemental oxygen. No: urine catheter General: alert, oriented, cooperative, mild distress Neck: supple Lungs: Normal respiratory effort, Crackles (both bases), Rhonchi (mild exp throughout) Cardiovascular: regular rate, regular rhythm, no murmurs Abdomen: soft, no distension Extremities: no cyanosis, edema (pitting edema to midshin bilaterally ) Skin: warm, dry Psy/Mental Status: alert, normal affect - Problem List & Annotations (1) Acute cystitis SNOMED Code(s): 55435916 Code(s): N30.00 - ACUTE CYSTITIS WITHOUT HEMATURIA Status: Acute Current Visit: Yes Qualifiers: Hematuria presence: without hematuria Qualified Code(s): N30.00 - Acute cystitis without hematuria (2) (HFpEF) heart failure with preserved ejection fraction SNOMED Code(s): 35791454 Code(s): I50.30 - UNSPECIFIED DIASTOLIC (CONGESTIVE) HEART FAILURE Status: Chronic Current Visit: No (3) Diabetes mellitus type 2 SNOMED Code(s): 45888003 Code(s): E11.9 - TYPE 2 DIABETES MELLITUS WITHOUT COMPLICATIONS Status: Chronic Priority: High Current Visit: No (4) Rheumatoid arthritis SNOMED Code(s): 24145112 Code(s): M06.9 - RHEUMATOID ARTHRITIS, UNSPECIFIED Status: Chronic Priority: Medium Current Visit: No Qualifiers: Rheumatoid arthritis location: multiple sites Rheumatoid factor presence: unspecified presence Qualified Code(s): M06.9 - Rheumatoid arthritis, unspecified - Problem List Review Problem List Initiated/Reviewed/Updated: Yes - My Orders Last 24 Hours: My Active Orders 07/29/16 15:10 Heparin Sodium [Heparin Lock Flush 100 Units/ML Syringe] 500 units FLUSH ASDIRECTED PRN 07/29/16 16:05 CULTURE URINE [RM] Routine 07/29/16 16:06 Patient Status [ADT] Routine Oxygen Therapy [RC] PRN Up With Assistance [RC] ASDIRECTED VTE/DVT Education [RC] Per Unit Routine Vital Signs [RC] Q4H Acetaminophen [Tylenol] 650 mg PO Q4H PRN Albuterol [Proventil Neb Soln] 2.5 mg NEB Q4H PRN LORazepam [Ativan] 0.5 - 1 mg IV Q4H PRN Magnesium Hydroxide [Milk of Magnesia] 30 ml PO Q12H PRN Ondansetron [Zofran ODT] 4 mg PO Q6H PRN Polyethylene Glycol 3350 [MiraLAX] 17 gm PO DAILY PRN Sodium Chloride 0.9% [Saline Flush] 10 ml FLUSH ASDIRECTED PRN Saline Lock Insert [OM.PC] Routine Resuscitation Status Routine 07/29/16 16:07 Intake and Output [RC] QSHIFT Notify Provider Vital Signs [RC] ASDIRECTED 07/29/16 16:09 RT Aerosol Therapy [RC] ASDIRECTED 07/29/16 16:12 ALPRAZolam [Xanax] 0.25 mg PO TID PRN Morphine 30 mg PO Q4H PRN Promethazine [Phenergan] 25 mg PO Q8H PRN 07/29/16 16:18 Benzonatate [Tessalon Perles] 100 mg PO TID PRN 07/29/16 16:22 Diabetes Education [RC] Click to Edit Notify Provider [RC] PRN 07/29/16 16:30 Verapamil [Calan SR] 180 mg PO BIDAC 07/29/16 17:00 Insulin Aspart [NovoLOG] 10 unit SUBCUT TIDMEALS Insulin Aspart [NovoLOG] See Protocol SUBCUT QIDACANDBED Potassium Chloride [Klor-Con M20] 20 meq PO BIDMEALS Sucralfate [Carafate] 1 gm PO QIDACANDBED cefTAZidime [Fortaz] 1 gm Sodium Chloride 0.9% [Normal Saline] 50 ml IV Q8H metFORMIN [Glucophage] 850 mg PO BIDMEALS 07/29/16 21:00 Albuterol/Ipratropium [DuoNeb 3.0-0.5 MG/3 ML] 3 ml NEB QIDRT Escitalopram [Lexapro] 30 mg PO BEDTIME Gabapentin [Neurontin] 300 mg PO BID Lactobacillus Rhamnosus GG [Culturelle] 1 cap PO BID Magnesium Oxide 400 mg PO BID Metoprolol Succinate [Toprol XL] 25 mg PO BEDTIME Mometasone/Formoterol [Dulera 200-5 MCG] 2 puff IH BIDRT Simvastatin [Zocor] 10 mg PO BEDTIME traZODone 50 mg PO BEDTIME 07/29/16 Dinner Consistent Carbohydrate Diet [DIET] 07/30/16 07:30 Pantoprazole [Protonix] 40 mg PO ACBREAKFAST 07/30/16 09:00 Aspirin 81 mg PO DAILY Clotrimazole [Mycelex] 10 mg PO DAILY Enoxaparin [Lovenox] 40 mg SUBCUT DAILY Ferrous Sulfate 325 mg PO DAILY Folic Acid 1 mg PO DAILY Isosorbide Mononitrate [Imdur] 30 mg PO DAILY Lisinopril [Prinivil] 20 mg PO DAILY Oxybutynin 5 mg PO BID azaTHIOprine [Imuran] 150 mg PO DAILY 07/30/16 15:15 Azithromycin [Zithromax] 500 mg Sodium Chloride 0.9% [Normal Saline] 250 ml IV Q24H Bumetanide [Bumex] 2 mg IVPUSH BIDDIURETIC 07/30/16 16:00 methylPREDNISolone Sod Succ [Solu-MEDROL] 62.5 mg IVPUSH Q8H 07/30/16 16:30 GLUCOSE POC LAB TO COLLECT [POC] QIDACANDBED 07/30/16 21:00 GLUCOSE POC LAB TO COLLECT [POC] QIDACANDBED Insulin Detemir [Levemir] 40 unit SUBCUT BEDTIME 07/31/16 05:00 BASIC METABOLIC PANEL,BMP [CHEM] Timed CBC W/O DIFF,HEMOGRAM [HEME] Timed (1) 07/31/16 07:30 GLUCOSE POC LAB TO COLLECT [POC] QIDACANDBED 07/31/16 11:30 GLUCOSE POC LAB TO COLLECT [POC] QIDACANDBED 07/31/16 16:30 GLUCOSE POC LAB TO COLLECT [POC] QIDACANDBED 07/31/16 21:00 GLUCOSE POC LAB TO COLLECT [POC] QIDACANDBED 08/01/16 07:30 GLUCOSE POC LAB TO COLLECT [POC] QIDACANDBED 08/01/16 11:30 GLUCOSE POC LAB TO COLLECT [POC] QIDACANDBED 08/01/16 16:30 GLUCOSE POC LAB TO COLLECT [POC] QIDACANDBED 08/01/16 21:00 GLUCOSE POC LAB TO COLLECT [POC] QIDACANDBED 08/02/16 07:30 GLUCOSE POC LAB TO COLLECT [POC] QIDACANDBED 08/02/16 11:30 GLUCOSE POC LAB TO COLLECT [POC] QIDACANDBED 08/02/16 16:30 GLUCOSE POC LAB TO COLLECT [POC] QIDACANDBED 08/02/16 21:00 GLUCOSE POC LAB TO COLLECT [POC] QIDACANDBED 08/03/16 07:30 GLUCOSE POC LAB TO COLLECT [POC] QIDACANDBED 08/03/16 11:30 GLUCOSE POC LAB TO COLLECT [POC] QIDACANDBED 08/03/16 16:30 GLUCOSE POC LAB TO COLLECT [POC] QIDACANDBED 08/03/16 21:00 GLUCOSE POC LAB TO COLLECT [POC] QIDACANDBED 08/04/16 07:30 GLUCOSE POC LAB TO COLLECT [POC] QIDACANDBED 08/04/16 11:30 GLUCOSE POC LAB TO COLLECT [POC] QIDACANDBED - Plan Plan:: Assessment and plan - Acute cystitis - no symptoms but urine sample suggestive of infection. History of similar. Antibiotics will be tricky with multiple allergies. -followup Urine culture -Ceftazidime Fever and increased supplemental oxygen requirement - no evidence for pneumonia on chest x-ray but bronchitis could be considered. Influenza is in the differential. No history of resistant organisms but may benefit given the severity of her illness from expanded antibiotic coverage. Blood pressures are on the low side and heart rate is borderline elevated. -Blood cultures -Add azithromycin and vancomycin -Continue ceftazidime -Lactic acid -IV fluid bolus -influenza swab Subacute exacerbation of congestive heart failure with preserved ejection fraction - weight is up 11 pounds from most recent stable dry weight. good response to diuretics yesterday but blood pressure now on the low side. -hold diuresis -Monitor electrolytes -Continue medical management including beta marsha and long-acting nitrate -Morphine as needed for air hunger Rheumatoid arthritis - often has difficulty with increasing symptoms around the time of an infection. -changed to Solu-Medrol Insulin-dependent diabetes mellitus, suboptimally controlled - anticipate bump in blood sugars with increased dose of prednisone. Sugars suboptimally controlled at baseline. -Continue long-acting insulin with dose increase -Mealtime insulin -Sliding-scale Maintenance issues - - DVT prophylaxis - enoxaparin - GI prophylaxis - PPI - Nutrition - consistent carbohydrate diet - Dougherty catheter - not indicated Disposition - anticipate discharge to home after the hospital stay Saran Bolivar M.D.
[2016-07-30] MEDS ORDERED: Bumetanide 2.5 MG/10 ML MDV IVPUSH SCH (15:30)
[2016-07-30] MEDS: methylPREDNISolone Sodium Succinate 125 MG/2 ML SDV IVPUSH SCH (16:29)
[2016-07-30] MEDS: Azithromycin 500 MG in Sodium Chloride 0.9% 250 ML IV SCH (16:31)
[2016-07-30] MEDS ORDERED: Sodium Chloride 0.9% 500 ML IV ONE ×2 (16:45→18:40)
--- NOTE | 2016-07-30 18:46 | PCM.SN ---
- Free Text/Narrative Note: time18:30; consult from [facility]; influenza A positive vital; blood pressure low; 103 to 116/ 60 a; hypotensive, new dx Influenza A p; consult with Dr. Bolivar, Internal Medicine Hospitalist; order additional Normal Saline 500 ml fluid bolus, start Tamiflu 75 mg po bid, give first dose now, place in Respiratoary isolation. monitor closely. continue present plan of care.
[2016-07-30] MEDS: Oseltamivir 75 MG Cap PO SCH (19:52)
[2016-07-30] MEDS ORDERED: Insulin Detemir 100 Units/ML 3 ML Pen SUBCUT SCH (21:00)
[2016-07-30] MEDS: traZODone 50 MG Tab PO SCH (21:04)
[2016-07-30] MEDS: ESCITALOPRAM PO SCH ×2 (21:04)
[2016-07-30] MEDS: Simvastatin 20 MG Tab PO SCH (21:04)
[2016-07-30] MEDS: Acetaminophen 500 MG Tab PO PRN (21:20)
[2016-07-30] MEDS: Metoprolol Succinate 25 MG Tab.ER PO SCH (21:33)
[2016-07-31] MEDS: methylPREDNISolone Sodium Succinate 125 MG/2 ML SDV IVPUSH SCH ×3 (00:02→16:14)
[2016-07-31] MEDS: cefTAZidime 1 GM in Sodium Chloride 0.9% 50 ML IV SCH ×3 (00:02→17:49)
[2016-07-31] MEDS: LORazepam 2 MG/ML MDV IV PRN ×3 (06:02→20:59)
[2016-07-31] MEDS: Albuterol/Ipratropium 3.0-0.5 MG/3 ML Neb Soln NEB SCH ×4 (07:52→20:42)
[2016-07-31] MEDS: Formoterol/Mometasone 200-5 MCG 8.8 GM Inhaler IH SCH ×2 (07:52→20:44)
[2016-07-31] MEDS: Sucralfate 1 GM Tab PO SCH ×4 (08:40→20:43)
[2016-07-31] MEDS: Pantoprazole 40 MG Tab.CR PO SCH (08:41)
[2016-07-31] MEDS: Verapamil 180 MG Tab.ER PO SCH ×2 (08:41→16:14)
[2016-07-31] MEDS: Potassium Chloride 20 MEQ Tab.ER PO SCH ×2 (08:42→17:51)
[2016-07-31] MEDS: Lactobacillus Rhamnosus GG (Probiotic) Cap PO SCH ×2 (08:43→20:43)
[2016-07-31] MEDS: Aspirin 81 MG Tab.Chew PO SCH (08:43)
[2016-07-31] MEDS: Folic Acid 1 MG Tab PO SCH (08:44)
[2016-07-31] MEDS: Isosorbide Mononitrate 30 MG Tab.ER PO SCH (08:44)
[2016-07-31] MEDS: Ferrous Sulfate 325 MG Tab PO SCH (08:44)
[2016-07-31] MEDS: Magnesium Oxide 400 MG Tab PO SCH ×2 (08:45→20:45)
[2016-07-31] MEDS: Gabapentin 300 MG Cap PO SCH ×2 (08:46→20:46)
[2016-07-31] MEDS: Lisinopril 20 MG Tab PO SCH (08:46)
[2016-07-31] MEDS: Clotrimazole 10 MG Troche PO SCH (08:46)
[2016-07-31] MEDS: Oxybutynin 5 MG Tab PO SCH ×2 (08:46→20:46)
[2016-07-31] MEDS: Oseltamivir 75 MG Cap PO SCH ×2 (08:47→20:46)
[2016-07-31] MEDS: Insulin Aspart 100 Units/ML 3 ML Pen SUBCUT SCH ×7 (08:52→20:55)
[2016-07-31] MEDS: Enoxaparin 40 MG/0.4 ML Syringe SUBCUT SCH (08:55)
[2016-07-31] MEDS ORDERED: Insulin Aspart 100 Units/ML 3 ML Pen SUBCUT ONE (12:15)
[2016-07-31] MEDS ORDERED: Alteplase 2 MG Vial IVPUSH ONE (12:30)
--- NOTE | 2016-07-31 12:33 | PCM.PN ---
- General Info Date of Service: 07/31/16 Functional Status: Reports: pain controlled, tolerating diet - Review of Systems General: Reports: fever, weakness Pulmonary: Reports: shortness of breath, pleuritic chest pain, cough Systems Review Comment:: patient had difficulty with persistent fevers and hypotension yesterday evening. She received 2 fluid boluses with improvement. We did hold her verapamil yesterday evening. She did test positive for influenza A and Tamiflu was initiated. She still feels pretty miserable with myalgias, cough, pleuritic chest pain and sore throat today. Blood pressures are actually on the high side this morning. Blood sugars have been elevated with steroids. - Patient Data Vitals - most recent: Last Vital Signs Temp 36.9 C 07/31/16 11:26 Pulse 103 H 07/31/16 11:26 Resp 19 07/31/16 11:26 BP 161/83 H 07/31/16 11:26 Pulse Ox 89 L 07/31/16 11:26 Weight - most recent: 136.078 kg I&O - last 24 hours: Intake & Output 07/30/16 07/31/16 07/31/16 22:59 06:59 14:59 Intake Total 800 700 650 Output Total 800 650 450 Balance 0 50 200 Lab Results last 24 hrs: Laboratory Results - last 24 hr 07/30/16 07/30/16 07/31/16 Range/Units 16:45 21:55 05:00 WBC 5.2 (4.5-11.0) K/uL RBC 4.16 (3.30-5.50) M/uL Hgb 10.6 L (12.0-15.0) g/dL Hct 36.0 (36.0-48.0) % MCV 87 (80-98) fL MCH 26 L (27-31) pg MCHC 29 L (32-36) % Plt Count 234 (150-400) K/uL Sodium (140-148) mmol/L Potassium (3.6-5.2) mmol/L Chloride (100-108) mmol/L Carbon Dioxide (21-32) mmol/L Anion Gap (5.0-14.0) mmol/L BUN (7-18) mg/dL Creatinine (0.6-1.0) mg/dL Est Cr Clr Drug Dosing mL/min Estimated GFR (MDRD) (>60) Glucose (74-106) mg/dL Lactic Acid 3.0 H 2.6 H (0.4-2.0) mmol/L Calcium (8.5-10.1) mg/dL 07/31/16 Range/Units 05:58 WBC (4.5-11.0) K/uL RBC (3.30-5.50) M/uL Hgb (12.0-15.0) g/dL Hct (36.0-48.0) % MCV (80-98) fL MCH (27-31) pg MCHC (32-36) % Plt Count (150-400) K/uL Sodium 140 (140-148) mmol/L Potassium 4.7 (3.6-5.2) mmol/L Chloride 102 (100-108) mmol/L Carbon Dioxide 31 (21-32) mmol/L Anion Gap 6.8 (5.0-14.0) mmol/L BUN 19 H (7-18) mg/dL Creatinine 0.8 (0.6-1.0) mg/dL Est Cr Clr Drug Dosing 68.26 mL/min Estimated GFR (MDRD) > 60 (>60) Glucose 359 H (74-106) mg/dL Lactic Acid (0.4-2.0) mmol/L Calcium 8.5 (8.5-10.1) mg/dL Frank Results last 24 hrs: Microbiology 07/29/16 16:05 Urine Culture - Final Urine, Clean Catch Enterobacter Dissolvens 07/30/16 17:11 Influenza Type A Antigen Screen - Final Nasal Aspirate, Left Positive Influenza A Ag Influenza Type B Antigen Screen - Final NEGATIVE INFLUENZA B VIRUS AG Med Orders - Current: Current Medications Acetaminophen (Tylenol Extra Strength) 1,000 mg PO TID PRN PRN Reason: Pain/Fever Last Admin: 07/30/16 21:20 Dose: 1,000 mg Albuterol (Proventil Neb Soln) 2.5 mg NEB Q4H PRN PRN Reason: Shortness Of Breath/wheezing Albuterol/Ipratropium (Duoneb 3.0-0.5 Mg/3 Ml) 3 ml NEB QIDRT OSMEL Last Admin: 07/31/16 10:52 Dose: 3 ml Alprazolam (Xanax) 0.25 mg PO TID PRN PRN Reason: Anxiety Last Admin: 07/30/16 21:21 Dose: 0.25 mg Aspirin (Aspirin) 81 mg PO DAILY [facility] Last Admin: 07/31/16 08:43 Dose: 81 mg Azathioprine (Imuran) 150 mg PO DAILY [facility] Last Admin: 07/31/16 08:45 Dose: 150 mg Benzonatate (Tessalon Perles) 100 mg PO TID PRN PRN Reason: Cough Last Admin: 07/30/16 08:59 Dose: 100 mg Clotrimazole (Mycelex) 10 mg PO DAILY [facility] Last Admin: 07/31/16 08:46 Dose: 10 mg Enoxaparin Sodium (Lovenox) 40 mg SUBCUT DAILY [facility] Last Admin: 07/31/16 08:55 Dose: 40 mg Escitalopram Oxalate 10 mg/ (Escitalopram Oxalate 20 mg) 30 mg PO BEDTIME [facility] Last Admin: 07/30/16 21:04 Dose: 30 mg Ferrous Sulfate (Ferrous Sulfate) 325 mg PO DAILY [facility] Last Admin: 07/31/16 08:44 Dose: 325 mg Folic Acid (Folic Acid) 1 mg PO DAILY [facility] Last Admin: 07/31/16 08:44 Dose: 1 mg Gabapentin (Neurontin) 300 mg PO BID [facility] Last Admin: 07/31/16 08:46 Dose: 300 mg Heparin Sodium (Porcine) (Heparin Lock Flush 100 Units/Ml Syringe) 500 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 Last Admin: 07/30/16 10:44 Dose: 500 units Ceftazidime 1 gm/ Sodium (Chloride) 50 mls @ 100 mls/hr IV Q8H [facility] Last Admin: 07/31/16 08:55 Dose: 100 mls/hr Azithromycin 500 mg/ Sodium (Chloride) 250 mls @ 250 mls/hr IV Q24H [facility] Last Admin: 07/30/16 16:31 Dose: 250 mls/hr Insulin Aspart (Novolog) 0 unit SUBCUT QIDACANDBED [facility] PRN Reason: Protocol Last Admin: 07/31/16 12:19 Dose: Not Given Insulin Aspart (Novolog) 10 unit SUBCUT TIDMEALS [facility] Last Admin: 07/31/16 12:26 Dose: 10 unit Insulin Detemir (Levemir) 50 unit SUBCUT BEDTIME [facility] Isosorbide Mononitrate (Imdur) 30 mg PO DAILY [facility] Last Admin: 07/31/16 08:44 Dose: 30 mg Lactobacillus Rhamnosus (Culturelle) 1 cap PO BID [facility] Last Admin: 07/31/16 08:43 Dose: 1 cap Lisinopril (Prinivil) 20 mg PO DAILY [facility] Last Admin: 07/31/16 08:46 Dose: 20 mg Lorazepam (Ativan) 0.5 - 1 mg IV Q4H PRN PRN Reason: Nausea/Vomiting Last Admin: 07/31/16 11:33 Dose: 1 mg Magnesium Hydroxide (Milk Of Magnesia) 30 ml PO Q12H PRN PRN Reason: Constipation Magnesium Oxide (Magnesium Oxide) 400 mg PO BID [facility] Last Admin: 07/31/16 08:45 Dose: 400 mg Metformin HCl (Glucophage) 850 mg PO BIDMEALS [facility] Last Admin: 07/31/16 08:42 Dose: 850 mg Methylprednisolone Sodium Succinate (Solu-Medrol) 62.5 mg IVPUSH Q8H [facility] Last Admin: 07/31/16 08:55 Dose: 62.5 mg Metoprolol Succinate (Toprol Xl) 25 mg PO BEDTIME [facility] Last Admin: 07/30/16 21:33 Dose: Not Given Mometasone Furoate/Formoterol Fumar (Dulera 200-5 Mcg) 2 puff IH BIDRT [facility] Last Admin: 07/31/16 07:52 Dose: 2 puff Morphine Sulfate (Morphine) 30 mg PO Q4H PRN PRN Reason: shortness of breath Last Admin: 07/31/16 03:37 Dose: 30 mg Morphine Sulfate (Morphine) 4 - 8 mg IVPUSH Q4H PRN PRN Reason: Pain Ondansetron HCl (Zofran Odt) 4 mg PO Q6H PRN PRN Reason: Nausea able to take PO Oseltamivir Phosphate (Tamiflu) 75 mg PO BID [facility] Last Admin: 07/31/16 08:47 Dose: 75 mg Oxybutynin Chloride (Oxybutynin) 5 mg PO BID [facility] Last Admin: 07/31/16 08:46 Dose: 5 mg Pantoprazole Sodium (Protonix) 40 mg PO ACBREAKFAST [facility] Last Admin: 07/31/16 08:41 Dose: 40 mg Polyethylene Glycol (Miralax) 17 gm PO DAILY PRN PRN Reason: Constipation Potassium Chloride (Klor-Con M20) 20 meq PO BIDMEALS [facility] Last Admin: 07/31/16 08:42 Dose: 20 meq Promethazine HCl (Phenergan) 25 mg PO Q8H PRN PRN Reason: Nausea Last Admin: 07/30/16 12:27 Dose: 25 mg Simvastatin (Zocor) 10 mg PO BEDTIME [facility] Last Admin: 07/30/16 21:04 Dose: 10 mg Sodium Chloride (Saline Flush) 10 ml FLUSH ASDIRECTED PRN PRN Reason: Keep Vein Open Sucralfate (Carafate) 1 gm PO QIDACANDBED [facility] Last Admin: 07/31/16 11:22 Dose: 1 gm Trazodone HCl (Trazodone) 50 mg PO BEDTIME [facility] Last Admin: 07/30/16 21:04 Dose: 50 mg Verapamil HCl (Calan Sr) 180 mg PO BIDAC [facility] Last Admin: 07/31/16 08:41 Dose: 180 mg Discontinued Medications Acetaminophen (Tylenol) 650 mg PO Q4H PRN PRN Reason: Pain (Mild 1-3)/fever Last Admin: 07/30/16 13:16 Dose: 650 mg Alteplase, Recombinant (Cathflo Activase) 2 mg IVPUSH ONETIME ONE Stop: 07/31/16 12:31 Bumetanide (Bumex) 2 mg IVPUSH ONETIME ONE Stop: 07/29/16 15:16 Last Admin: 07/29/16 15:22 Dose: 2 mg Bumetanide (Bumex) 2 mg IVPUSH BIDDIURETIC [facility] Last Admin: 07/31/16 10:54 Dose: Not Given Heparin Sodium (Porcine) (Heparin Lock Flush 100 Units/Ml Syringe) Confirm Administered Dose 500 units .ROUTE .STK-MED ONE Stop: 07/29/16 15:15 Last Admin: 07/29/16 15:25 Dose: 500 units Heparin Sodium (Porcine) (Heparin Lock Flush 100 Units/Ml Syringe) Confirm Administered Dose 500 units .ROUTE .STK-MED ONE Stop: 07/29/16 22:03 Last Admin: 07/29/16 22:35 Dose: 500 units Heparin Sodium (Porcine) (Heparin Lock Flush 100 Units/Ml Syringe) Confirm Administered Dose 500 units .ROUTE .STK-MED ONE Stop: 07/30/16 00:32 Last Admin: 07/30/16 10:45 Dose: Not Given Sodium Chloride (Normal Saline) 500 mls @ 500 mls/hr IV .BOLUS ONE Stop: 07/30/16 17:44 Last Admin: 07/30/16 17:04 Dose: 500 mls/hr Vancomycin HCl 1.75 gm/ Sodium (Chloride) 250 mls @ 167 mls/hr IV Q12H [facility] Last Admin: 07/30/16 20:11 Dose: Not Given Sodium Chloride (Normal Saline) 500 mls @ 500 mls/hr IV .BOLUS ONE Stop: 07/30/16 19:39 Last Admin: 07/30/16 19:41 Dose: 500 mls/hr Insulin Aspart (Novolog) 15 unit SUBCUT ONETIME ONE Stop: 07/31/16 12:16 Last Admin: 07/31/16 12:27 Dose: 15 units Insulin Detemir (Levemir) 30 unit SUBCUT BEDTIME [facility] Last Admin: 07/29/16 22:41 Dose: 30 units Insulin Detemir (Levemir) 40 unit SUBCUT BEDTIME [facility] Last Admin: 07/30/16 21:06 Dose: 40 unit Prednisone (Prednisone) 20 mg PO BIDMEALS [facility] Last Admin: 07/30/16 09:14 Dose: 20 mg - Exam Quality Assessment: supplemental oxygen General: alert, oriented, cooperative, no acute distress Neck: supple Lungs: Crackles (few both bases), Wheezing (mild exp wheezing lower 1/2 both lungs, L>R) Cardiovascular: regular rate, regular rhythm, murmurs Extremities: edema (trace ankle edema) Skin: warm, dry Psy/Mental Status: alert, normal affect - Problem List & Annotations (1) Influenza A SNOMED Code(s): 627435632 Code(s): J10.1 - FLU DUE TO OTH IDENT INFLUENZA VIRUS W OTH RESP MANIFEST Status: Acute Current Visit: Yes (2) Acute cystitis SNOMED Code(s): 60695209 Code(s): N30.00 - ACUTE CYSTITIS WITHOUT HEMATURIA Status: Acute Current Visit: Yes Qualifiers: Hematuria presence: without hematuria Qualified Code(s): N30.00 - Acute cystitis without hematuria (3) (HFpEF) heart failure with preserved ejection fraction SNOMED Code(s): 18427421 Code(s): I50.30 - UNSPECIFIED DIASTOLIC (CONGESTIVE) HEART FAILURE Status: Chronic Current Visit: No (4) Diabetes mellitus type 2 SNOMED Code(s): 62047869 Code(s): E11.9 - TYPE 2 DIABETES MELLITUS WITHOUT COMPLICATIONS Status: Chronic Priority: High Current Visit: No (5) Rheumatoid arthritis SNOMED Code(s): 62399108 Code(s): M06.9 - RHEUMATOID ARTHRITIS, UNSPECIFIED Status: Chronic Priority: Medium Current Visit: No Qualifiers: Rheumatoid arthritis location: multiple sites Rheumatoid factor presence: unspecified presence Qualified Code(s): M06.9 - Rheumatoid arthritis, unspecified - Problem List Review Problem List Initiated/Reviewed/Updated: Yes - My Orders Last 24 Hours: My Active Orders 07/30/16 15:30 Azithromycin [Zithromax] 500 mg Sodium Chloride 0.9% [Normal Saline] 250 ml IV Q24H 07/30/16 16:00 methylPREDNISolone Sod Succ [Solu-MEDROL] 62.5 mg IVPUSH Q8H 07/30/16 16:21 Acetaminophen [Tylenol Extra Strength] 1,000 mg PO TID PRN 07/30/16 16:45 CULTURE BLOOD [BC] Urgent CULTURE BLOOD [BC] Urgent 07/30/16 16:48 Blood Culture x2 Reflex Set [OM.PC] Urgent 07/31/16 12:00 Morphine 4 - 8 mg IVPUSH Q4H PRN 07/31/16 16:30 GLUCOSE POC LAB TO COLLECT [POC] QIDACANDBED 07/31/16 21:00 GLUCOSE POC LAB TO COLLECT [POC] QIDACANDBED Insulin Detemir [Levemir] 50 unit SUBCUT BEDTIME 08/01/16 07:30 GLUCOSE POC LAB TO COLLECT [POC] QIDACANDBED 08/01/16 11:30 GLUCOSE POC LAB TO COLLECT [POC] QIDACANDBED 08/01/16 16:30 GLUCOSE POC LAB TO COLLECT [POC] QIDACANDBED 08/01/16 21:00 GLUCOSE POC LAB TO COLLECT [POC] QIDACANDBED 08/02/16 07:30 GLUCOSE POC LAB TO COLLECT [POC] QIDACANDBED 08/02/16 11:30 GLUCOSE POC LAB TO COLLECT [POC] QIDACANDBED 08/02/16 16:30 GLUCOSE POC LAB TO COLLECT [POC] QIDACANDBED 08/02/16 21:00 GLUCOSE POC LAB TO COLLECT [POC] QIDACANDBED 08/03/16 07:30 GLUCOSE POC LAB TO COLLECT [POC] QIDACANDBED 08/03/16 11:30 GLUCOSE POC LAB TO COLLECT [POC] QIDACANDBED 08/03/16 16:30 GLUCOSE POC LAB TO COLLECT [POC] QIDACANDBED 08/03/16 21:00 GLUCOSE POC LAB TO COLLECT [POC] QIDACANDBED 08/04/16 07:30 GLUCOSE POC LAB TO COLLECT [POC] QIDACANDBED 08/04/16 11:30 GLUCOSE POC LAB TO COLLECT [POC] QIDACANDBED - Plan Plan:: Assessment and plan - Acute influenza A. - patient tested positive last night. Tamiflu has been initiated. -Blood cultures -morphine for chest pain -Nebulizers -Continue azithromycin and ceftazidime for now -supplement oxygen as needed Subacute exacerbation of congestive heart failure with preserved ejection fraction - had been responding to diuretics. Blood pressure on the low side last night and did receive some fluid back. Minimal edema at this time. -hold diuresis -Monitor electrolytes -Continue medical management including beta marsha and long-acting nitrate -Morphine as needed for air hunger Acute cystitis - no symptoms but urine sample suggestive of infection. History of similar. patient has partially resistant Enterobacter and ceftazidime should be sufficient based on allergies and culture results. -followup Urine culture -Ceftazidime Rheumatoid arthritis - often has difficulty with increasing symptoms around the time of an infection. -changed to Solu-Medrol Insulin-dependent diabetes mellitus, suboptimally controlled - sugars are suboptimally elevated and she will need additional increases in her insulin dosing. -Continue long-acting insulin with another dose increase -Mealtime insulin -Sliding-scale Maintenance issues - - DVT prophylaxis - enoxaparin - GI prophylaxis - PPI - Nutrition - consistent carbohydrate diet - Dougherty catheter - not indicated Disposition - anticipate discharge to home after the hospital stay Saran Bolivar M.D.
[2016-07-31] MEDS: Morphine 4 MG/ML Syringe IVPUSH PRN ×2 (12:57→18:47)
[2016-07-31] MEDS: Azithromycin 500 MG in Sodium Chloride 0.9% 250 ML IV SCH (16:10)
[2016-07-31] MEDS: ESCITALOPRAM PO SCH ×2 (20:44)
[2016-07-31] MEDS: traZODone 50 MG Tab PO SCH (20:47)
[2016-07-31] MEDS: Simvastatin 20 MG Tab PO SCH (20:48)
[2016-07-31] MEDS: Metoprolol Succinate 25 MG Tab.ER PO SCH (20:49)
[2016-07-31] MEDS: Insulin Detemir 100 Units/ML 3 ML Pen SUBCUT SCH (20:51)
[2016-08-01] MEDS: methylPREDNISolone Sodium Succinate 125 MG/2 ML SDV IVPUSH SCH ×3 (00:03→16:42)
[2016-08-01] MEDS: cefTAZidime 1 GM in Sodium Chloride 0.9% 50 ML IV SCH ×3 (00:06→18:17)
[2016-08-01] MEDS: Morphine 4 MG/ML Syringe IVPUSH PRN ×2 (02:55→16:37)
[2016-08-01] MEDS: Sucralfate 1 GM Tab PO SCH ×4 (07:44→20:11)
[2016-08-01] MEDS: Pantoprazole 40 MG Tab.CR PO SCH (07:44)
[2016-08-01] MEDS: Verapamil 180 MG Tab.ER PO SCH ×2 (07:45→17:02)
[2016-08-01] MEDS: Formoterol/Mometasone 200-5 MCG 8.8 GM Inhaler IH SCH ×2 (08:04→20:13)
[2016-08-01] MEDS: Albuterol/Ipratropium 3.0-0.5 MG/3 ML Neb Soln NEB SCH ×4 (08:04→20:35)
[2016-08-01] MEDS: Enoxaparin 40 MG/0.4 ML Syringe SUBCUT SCH (09:08)
[2016-08-01] MEDS: Insulin Aspart 100 Units/ML 3 ML Pen SUBCUT SCH ×7 (10:24→21:22)
[2016-08-01] MEDS: Potassium Chloride 20 MEQ Tab.ER PO SCH ×2 (10:29→17:00)
[2016-08-01] MEDS: Folic Acid 1 MG Tab PO SCH (10:30)
[2016-08-01] MEDS: Lactobacillus Rhamnosus GG (Probiotic) Cap PO SCH ×2 (10:30→20:12)
[2016-08-01] MEDS: Isosorbide Mononitrate 30 MG Tab.ER PO SCH (10:30)
[2016-08-01] MEDS: Ferrous Sulfate 325 MG Tab PO SCH (10:30)
[2016-08-01] MEDS: Aspirin 81 MG Tab.Chew PO SCH (10:30)
[2016-08-01] MEDS: Gabapentin 300 MG Cap PO SCH ×2 (10:31→20:15)
[2016-08-01] MEDS: Clotrimazole 10 MG Troche PO SCH (10:31)
[2016-08-01] MEDS: Magnesium Oxide 400 MG Tab PO SCH ×2 (10:31→20:14)
[2016-08-01] MEDS: Lisinopril 20 MG Tab PO SCH (10:31)
[2016-08-01] MEDS: Oxybutynin 5 MG Tab PO SCH ×2 (10:31→20:15)
[2016-08-01] MEDS: Oseltamivir 75 MG Cap PO SCH ×2 (10:32→20:15)
--- NOTE | 2016-08-01 11:17 | PCM.PN ---
- General Info Date of Service: 08/01/16 Functional Status: Reports: pain controlled, tolerating diet - Review of Systems General: Reports: weakness. Denies: fever Pulmonary: Reports: pleuritic chest pain, cough, wheezing Systems Review Comment:: No acute events overnight. Still requiring extra supplemental oxygen from baseline. Still has dry painful cough but this is a little bit better today. No fevers overnight. Myalgias or little better today. Appetite is a little better. Still weak and a little unsteady on her feet. Still wheezing. - Patient Data Vitals - most recent: Last Vital Signs Temp 36.6 C 08/01/16 07:35 Pulse 79 08/01/16 10:58 Resp 20 08/01/16 07:35 BP 157/94 H 08/01/16 07:35 Pulse Ox 94 L 08/01/16 10:58 Weight - most recent: 136.078 kg I&O - last 24 hours: Intake & Output 07/31/16 08/01/16 08/01/16 22:59 06:59 14:59 Intake Total 590 850 290 Output Total 750 600 Balance -160 250 290 Frank Results last 24 hrs: Microbiology 07/30/16 16:45 Aerobic Blood Culture - Preliminary Blood - Arm, Right NO GROWTH AFTER 1 DAY Anaerobic Blood Culture - Preliminary NO GROWTH AFTER 1 DAY 07/30/16 16:45 Aerobic Blood Culture - Preliminary Blood - Arm, Right NO GROWTH AFTER 1 DAY Anaerobic Blood Culture - Preliminary NO GROWTH AFTER 1 DAY 07/29/16 16:05 Urine Culture - Final Urine, Clean Catch Enterobacter Dissolvens Med Orders - Current: Current Medications Acetaminophen (Tylenol Extra Strength) 1,000 mg PO TID PRN PRN Reason: Pain/Fever Last Admin: 07/30/16 21:20 Dose: 1,000 mg Albuterol (Proventil Neb Soln) 2.5 mg NEB Q4H PRN PRN Reason: Shortness Of Breath/wheezing Albuterol/Ipratropium (Duoneb 3.0-0.5 Mg/3 Ml) 3 ml NEB QIDRT [facility] Last Admin: 08/01/16 10:55 Dose: 3 ml Alprazolam (Xanax) 0.25 mg PO TID PRN PRN Reason: Anxiety Last Admin: 07/30/16 21:21 Dose: 0.25 mg Aspirin (Aspirin) 81 mg PO DAILY [facility] Last Admin: 08/01/16 10:30 Dose: 81 mg Azathioprine (Imuran) 150 mg PO DAILY [facility] Last Admin: 08/01/16 10:31 Dose: 150 mg Benzonatate (Tessalon Perles) 100 mg PO TID PRN PRN Reason: Cough Last Admin: 07/30/16 08:59 Dose: 100 mg Clotrimazole (Mycelex) 10 mg PO DAILY [facility] Last Admin: 08/01/16 10:31 Dose: 10 mg Enoxaparin Sodium (Lovenox) 40 mg SUBCUT DAILY [facility] Last Admin: 08/01/16 09:08 Dose: 40 mg Escitalopram Oxalate 10 mg/ (Escitalopram Oxalate 20 mg) 30 mg PO BEDTIME [facility] Last Admin: 07/31/16 20:44 Dose: 30 mg Ferrous Sulfate (Ferrous Sulfate) 325 mg PO DAILY [facility] Last Admin: 08/01/16 10:30 Dose: 325 mg Folic Acid (Folic Acid) 1 mg PO DAILY [facility] Last Admin: 08/01/16 10:30 Dose: 1 mg Gabapentin (Neurontin) 300 mg PO BID [facility] Last Admin: 08/01/16 10:31 Dose: 300 mg Heparin Sodium (Porcine) (Heparin Lock Flush 100 Units/Ml Syringe) 500 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 Last Admin: 07/30/16 10:44 Dose: 500 units Ceftazidime 1 gm/ Sodium (Chloride) 50 mls @ 100 mls/hr IV Q8H [facility] Last Admin: 08/01/16 09:13 Dose: 100 mls/hr Azithromycin 500 mg/ Sodium (Chloride) 250 mls @ 250 mls/hr IV Q24H [facility] Last Admin: 07/31/16 16:10 Dose: 250 mls/hr Insulin Aspart (Novolog) 0 unit SUBCUT QIDACANDBED [facility] PRN Reason: Protocol Last Admin: 08/01/16 10:24 Dose: 9 unit Insulin Aspart (Novolog) 10 unit SUBCUT TIDMEALS [facility] Last Admin: 08/01/16 10:24 Dose: 10 unit Insulin Detemir (Levemir) 50 unit SUBCUT BEDTIME [facility] Last Admin: 07/31/16 20:51 Dose: 50 units Isosorbide Mononitrate (Imdur) 30 mg PO DAILY [facility] Last Admin: 08/01/16 10:30 Dose: 30 mg Lactobacillus Rhamnosus (Culturelle) 1 cap PO BID [facility] Last Admin: 08/01/16 10:30 Dose: 1 cap Lisinopril (Prinivil) 20 mg PO DAILY [facility] Last Admin: 08/01/16 10:31 Dose: 20 mg Lorazepam (Ativan) 0.5 - 1 mg IV Q4H PRN PRN Reason: Nausea/Vomiting Last Admin: 07/31/16 20:59 Dose: 1 mg Magnesium Hydroxide (Milk Of Magnesia) 30 ml PO Q12H PRN PRN Reason: Constipation Magnesium Oxide (Magnesium Oxide) 400 mg PO BID [facility] Last Admin: 08/01/16 10:31 Dose: 400 mg Metformin HCl (Glucophage) 850 mg PO BIDMEALS [facility] Last Admin: 08/01/16 10:33 Dose: 850 mg Methylprednisolone Sodium Succinate (Solu-Medrol) 62.5 mg IVPUSH Q8H [facility] Last Admin: 08/01/16 09:08 Dose: 62.5 mg Metoprolol Succinate (Toprol Xl) 25 mg PO BEDTIME [facility] Last Admin: 07/31/16 20:49 Dose: 25 mg Mometasone Furoate/Formoterol Fumar (Dulera 200-5 Mcg) 2 puff IH BIDRT [facility] Last Admin: 08/01/16 08:04 Dose: 2 puff Morphine Sulfate (Morphine) 30 mg PO Q4H PRN PRN Reason: shortness of breath Last Admin: 07/31/16 03:37 Dose: 30 mg Morphine Sulfate (Morphine) 4 - 8 mg IVPUSH Q4H PRN PRN Reason: Pain Last Admin: 08/01/16 02:55 Dose: 4 mg Ondansetron HCl (Zofran Odt) 4 mg PO Q6H PRN PRN Reason: Nausea able to take PO Oseltamivir Phosphate (Tamiflu) 75 mg PO BID [facility] Stop: 08/04/16 07:00 Last Admin: 08/01/16 10:32 Dose: 75 mg Oxybutynin Chloride (Oxybutynin) 5 mg PO BID [facility] Last Admin: 08/01/16 10:31 Dose: 5 mg Pantoprazole Sodium (Protonix) 40 mg PO ACBREAKFAST [facility] Last Admin: 08/01/16 07:44 Dose: 40 mg Polyethylene Glycol (Miralax) 17 gm PO DAILY PRN PRN Reason: Constipation Potassium Chloride (Klor-Con M20) 20 meq PO BIDMEALS [facility] Last Admin: 08/01/16 10:29 Dose: 20 meq Promethazine HCl (Phenergan) 25 mg PO Q8H PRN PRN Reason: Nausea Last Admin: 07/30/16 12:27 Dose: 25 mg Simvastatin (Zocor) 10 mg PO BEDTIME [facility] Last Admin: 07/31/16 20:48 Dose: 10 mg Sodium Chloride (Saline Flush) 10 ml FLUSH ASDIRECTED PRN PRN Reason: Keep Vein Open Sucralfate (Carafate) 1 gm PO QIDACANDBED [facility] Last Admin: 08/01/16 07:44 Dose: 1 gm Trazodone HCl (Trazodone) 50 mg PO BEDTIME [facility] Last Admin: 07/31/16 20:47 Dose: 50 mg Verapamil HCl (Calan Sr) 180 mg PO BIDAC [facility] Last Admin: 08/01/16 07:45 Dose: 180 mg Discontinued Medications Acetaminophen (Tylenol) 650 mg PO Q4H PRN PRN Reason: Pain (Mild 1-3)/fever Last Admin: 07/30/16 13:16 Dose: 650 mg Alteplase, Recombinant (Cathflo Activase) 2 mg IVPUSH ONETIME ONE Stop: 07/31/16 12:31 Last Admin: 07/31/16 12:40 Dose: 2 mg Bumetanide (Bumex) 2 mg IVPUSH ONETIME ONE Stop: 07/29/16 15:16 Last Admin: 07/29/16 15:22 Dose: 2 mg Bumetanide (Bumex) 2 mg IVPUSH BIDDIURETIC [facility] Last Admin: 07/31/16 10:54 Dose: Not Given Heparin Sodium (Porcine) (Heparin Lock Flush 100 Units/Ml Syringe) Confirm Administered Dose 500 units .ROUTE .STK-MED ONE Stop: 07/29/16 15:15 Last Admin: 07/29/16 15:25 Dose: 500 units Heparin Sodium (Porcine) (Heparin Lock Flush 100 Units/Ml Syringe) Confirm Administered Dose 500 units .ROUTE .STK-MED ONE Stop: 07/29/16 22:03 Last Admin: 07/29/16 22:35 Dose: 500 units Heparin Sodium (Porcine) (Heparin Lock Flush 100 Units/Ml Syringe) Confirm Administered Dose 500 units .ROUTE .STK-MED ONE Stop: 07/30/16 00:32 Last Admin: 07/30/16 10:45 Dose: Not Given Sodium Chloride (Normal Saline) 500 mls @ 500 mls/hr IV .BOLUS ONE Stop: 07/30/16 17:44 Last Admin: 07/30/16 17:04 Dose: 500 mls/hr Vancomycin HCl 1.75 gm/ Sodium (Chloride) 250 mls @ 167 mls/hr IV Q12H [facility] Last Admin: 07/30/16 20:11 Dose: Not Given Sodium Chloride (Normal Saline) 500 mls @ 500 mls/hr IV .BOLUS ONE Stop: 07/30/16 19:39 Last Admin: 07/30/16 19:41 Dose: 500 mls/hr Insulin Aspart (Novolog) 15 unit SUBCUT ONETIME ONE Stop: 07/31/16 12:16 Last Admin: 07/31/16 12:27 Dose: 15 units Insulin Detemir (Levemir) 30 unit SUBCUT BEDTIME [facility] Last Admin: 07/29/16 22:41 Dose: 30 units Insulin Detemir (Levemir) 40 unit SUBCUT BEDTIME [facility] Last Admin: 07/30/16 21:06 Dose: 40 unit Prednisone (Prednisone) 20 mg PO BIDMEALS [facility] Last Admin: 07/30/16 09:14 Dose: 20 mg - Exam Quality Assessment: supplemental oxygen. No: urine catheter General: alert, oriented, cooperative, mild distress Neck: supple Lungs: Crackles (both lung bases), Wheezing (moderate exp wheezing ) Cardiovascular: regular rate, regular rhythm Abdomen: soft, no distension Extremities: no edema, no cyanosis Skin: warm, dry Psy/Mental Status: alert, normal affect - Problem List & Annotations (1) Influenza A SNOMED Code(s): 852116150 Code(s): J10.1 - FLU DUE TO OTH IDENT INFLUENZA VIRUS W OTH RESP MANIFEST Status: Acute Current Visit: Yes (2) Acute cystitis SNOMED Code(s): 24970153 Code(s): N30.00 - ACUTE CYSTITIS WITHOUT HEMATURIA Status: Acute Current Visit: Yes Qualifiers: Hematuria presence: without hematuria Qualified Code(s): N30.00 - Acute cystitis without hematuria (3) (HFpEF) heart failure with preserved ejection fraction SNOMED Code(s): 97140457 Code(s): I50.30 - UNSPECIFIED DIASTOLIC (CONGESTIVE) HEART FAILURE Status: Chronic Current Visit: No (4) Diabetes mellitus type 2 SNOMED Code(s): 16120374 Code(s): E11.9 - TYPE 2 DIABETES MELLITUS WITHOUT COMPLICATIONS Status: Chronic Priority: High Current Visit: No (5) Rheumatoid arthritis SNOMED Code(s): 77542064 Code(s): M06.9 - RHEUMATOID ARTHRITIS, UNSPECIFIED Status: Chronic Priority: Medium Current Visit: No Qualifiers: Rheumatoid arthritis location: multiple sites Rheumatoid factor presence: unspecified presence Qualified Code(s): M06.9 - Rheumatoid arthritis, unspecified - Problem List Review Problem List Initiated/Reviewed/Updated: Yes - My Orders Last 24 Hours: My Active Orders 07/31/16 12:00 Morphine 4 - 8 mg IVPUSH Q4H PRN 07/31/16 21:00 Insulin Detemir [Levemir] 50 unit SUBCUT BEDTIME 08/01/16 11:30 GLUCOSE POC LAB TO COLLECT [POC] QIDACANDBED 08/01/16 16:30 GLUCOSE POC LAB TO COLLECT [POC] QIDACANDBED 08/01/16 21:00 GLUCOSE POC LAB TO COLLECT [POC] QIDACANDBED 08/02/16 05:00 BASIC METABOLIC PANEL,BMP [CHEM] Timed CBC W/O DIFF,HEMOGRAM [HEME] Timed (1) 08/02/16 07:30 GLUCOSE POC LAB TO COLLECT [POC] QIDACANDBED 08/02/16 11:30 GLUCOSE POC LAB TO COLLECT [POC] QIDACANDBED 08/02/16 16:30 GLUCOSE POC LAB TO COLLECT [POC] QIDACANDBED 08/02/16 21:00 GLUCOSE POC LAB TO COLLECT [POC] QIDACANDBED 08/03/16 07:30 GLUCOSE POC LAB TO COLLECT [POC] QIDACANDBED 08/03/16 11:30 GLUCOSE POC LAB TO COLLECT [POC] QIDACANDBED 08/03/16 16:30 GLUCOSE POC LAB TO COLLECT [POC] QIDACANDBED 08/03/16 21:00 GLUCOSE POC LAB TO COLLECT [POC] QIDACANDBED 08/04/16 07:30 GLUCOSE POC LAB TO COLLECT [POC] QIDACANDBED 08/04/16 11:30 GLUCOSE POC LAB TO COLLECT [POC] QIDACANDBED - Plan Plan:: Assessment and plan - Acute influenza A. - patient tested positive and Tamiflu has been initiated. Fever curve has improved. Symptoms seem to be improving. -Tamiflu -morphine for chest pain -Nebulizers -Continue azithromycin and ceftazidime for now -supplement oxygen as needed Subacute exacerbation of congestive heart failure with preserved ejection fraction - minimal edema at this time and diuretics have been on hold. -hold diuresis for now, reassess tomorrow morning -Monitor electrolytes -Continue medical management including beta marsha and long-acting nitrate -Morphine as needed for air hunger Acute cystitis - no symptoms but urine sample suggestive of infection. History of similar. Patient has partially resistant Enterobacter and ceftazidime should be sufficient based on allergies and culture results. -followup Urine culture -Ceftazidime for 5 days Rheumatoid arthritis - often has difficulty with increasing symptoms around the time of an infection. -Continue Solu-Medrol Insulin-dependent diabetes mellitus, suboptimally controlled - sugars are suboptimally controlled well on steroids but have improved some with increased doses of long-acting insulin -Continue increased dose of long-acting insulin -Mealtime insulin -Sliding-scale Maintenance issues - - DVT prophylaxis - enoxaparin - GI prophylaxis - PPI - Nutrition - consistent carbohydrate diet - Dougherty catheter - not indicated Disposition - anticipate discharge to home after the hospital stay Saran Bolivar M.D.
[2016-08-01] MEDS: Azithromycin 500 MG in Sodium Chloride 0.9% 250 ML IV SCH (16:46)
[2016-08-01] MEDS: ESCITALOPRAM PO SCH ×2 (20:14)
[2016-08-01] MEDS: Metoprolol Succinate 25 MG Tab.ER PO SCH (20:16)
[2016-08-01] MEDS: traZODone 50 MG Tab PO SCH (20:18)
[2016-08-01] MEDS: Simvastatin 20 MG Tab PO SCH (20:19)
[2016-08-01] MEDS: LORazepam 2 MG/ML MDV IV PRN (20:35)
[2016-08-01] MEDS: Insulin Detemir 100 Units/ML 3 ML Pen SUBCUT SCH (21:21)
[2016-08-02] MEDS: methylPREDNISolone Sodium Succinate 125 MG/2 ML SDV IVPUSH SCH ×3 (00:07→15:49)
[2016-08-02] MEDS: cefTAZidime 1 GM in Sodium Chloride 0.9% 50 ML IV SCH ×3 (00:58→16:35)
[2016-08-02] MEDS: Formoterol/Mometasone 200-5 MCG 8.8 GM Inhaler IH SCH ×2 (07:34→20:22)
[2016-08-02] MEDS: Albuterol/Ipratropium 3.0-0.5 MG/3 ML Neb Soln NEB SCH ×4 (07:34→20:51)
[2016-08-02] MEDS: Sucralfate 1 GM Tab PO SCH ×4 (07:53→20:21)
[2016-08-02] MEDS: Verapamil 180 MG Tab.ER PO SCH ×2 (07:53→15:53)
[2016-08-02] MEDS: Pantoprazole 40 MG Tab.CR PO SCH (07:54)
[2016-08-02] MEDS: Potassium Chloride 20 MEQ Tab.ER PO SCH ×2 (07:54→16:36)
[2016-08-02] MEDS: Insulin Aspart 100 Units/ML 3 ML Pen SUBCUT SCH ×7 (07:56→21:25)
[2016-08-02] MEDS: Aspirin 81 MG Tab.Chew PO SCH (08:05)
[2016-08-02] MEDS: Lactobacillus Rhamnosus GG (Probiotic) Cap PO SCH ×2 (08:06→20:21)
[2016-08-02] MEDS: Lisinopril 20 MG Tab PO SCH (08:07)
[2016-08-02] MEDS: Ferrous Sulfate 325 MG Tab PO SCH (08:09)
[2016-08-02] MEDS: Oxybutynin 5 MG Tab PO SCH ×2 (08:09→20:26)
[2016-08-02] MEDS: Isosorbide Mononitrate 30 MG Tab.ER PO SCH (08:09)
[2016-08-02] MEDS: Gabapentin 300 MG Cap PO SCH ×2 (08:10→20:26)
[2016-08-02] MEDS: Oseltamivir 75 MG Cap PO SCH ×2 (08:10→20:26)
[2016-08-02] MEDS: Magnesium Oxide 400 MG Tab PO SCH ×2 (08:10→20:22)
[2016-08-02] MEDS: Folic Acid 1 MG Tab PO SCH (08:11)
[2016-08-02] MEDS: Enoxaparin 40 MG/0.4 ML Syringe SUBCUT SCH (08:11)
[2016-08-02] MEDS: Clotrimazole 10 MG Troche PO SCH (08:12)
[2016-08-02] MEDS: Bumetanide 1 MG Tab PO SCH (13:49)
[2016-08-02] MEDS: LORazepam 2 MG/ML MDV IV PRN ×2 (14:08→20:17)
[2016-08-02] MEDS: Morphine 4 MG/ML Syringe IVPUSH PRN ×2 (14:10→20:16)
[2016-08-02] MEDS: Azithromycin 500 MG in Sodium Chloride 0.9% 250 ML IV SCH (15:28)
--- NOTE | 2016-08-02 16:45 | PCM.PN ---
- General Info Date of Service: 08/02/16 Functional Status: Reports: pain controlled, tolerating diet - Review of Systems General: Reports: weakness. Denies: fever Pulmonary: Reports: shortness of breath, pleuritic chest pain, cough Systems Review Comment:: no acute events overnight. Finally starting to feel a little bit better today but still short of breath and has a cough with pleuritic chest pain. Not sleeping well because of the cough. Myalgias seem a little better today. Lower extremity edema starting to build up. Blood sugars to moderately elevated. Urine output has been acceptable. - Patient Data Vitals - most recent: Last Vital Signs Temp 37.1 C 08/02/16 15:14 Pulse 79 08/02/16 15:14 Resp 18 08/02/16 15:14 BP 141/81 H 08/02/16 15:14 Pulse Ox 92 L 08/02/16 15:14 Weight - most recent: 136.078 kg I&O - last 24 hours: Intake & Output 08/02/16 08/02/16 08/02/16 06:59 14:59 22:59 Intake Total 50 50 1210 Output Total 300 800 Balance -250 -750 1210 Lab Results last 24 hrs: Laboratory Results - last 24 hr 08/02/16 08/02/16 Range/Units 05:15 05:15 WBC 6.1 (4.5-11.0) K/uL RBC 3.97 (3.30-5.50) M/uL Hgb 10.0 L (12.0-15.0) g/dL Hct 35.3 L (36.0-48.0) % MCV 89 (80-98) fL MCH 25 L (27-31) pg MCHC 28 L (32-36) % Plt Count 219 (150-400) K/uL Sodium 142 (140-148) mmol/L Potassium 4.6 (3.6-5.2) mmol/L Chloride 105 (100-108) mmol/L Carbon Dioxide 35 H (21-32) mmol/L Anion Gap 6.6 (5.0-14.0) mmol/L BUN 21 H (7-18) mg/dL Creatinine 0.7 (0.6-1.0) mg/dL Est Cr Clr Drug Dosing 78.01 mL/min Estimated GFR (MDRD) > 60 (>60) Glucose 349 H (74-106) mg/dL Calcium 8.2 L (8.5-10.1) mg/dL Frank Results last 24 hrs: Microbiology 07/30/16 16:45 Aerobic Blood Culture - Preliminary Blood - Arm, Right NO GROWTH AFTER 2 DAYS Anaerobic Blood Culture - Preliminary NO GROWTH AFTER 2 DAYS 07/30/16 16:45 Aerobic Blood Culture - Preliminary Blood - Arm, Right NO GROWTH AFTER 2 DAYS Anaerobic Blood Culture - Preliminary NO GROWTH AFTER 2 DAYS Med Orders - Current: Current Medications Acetaminophen (Tylenol Extra Strength) 1,000 mg PO TID PRN PRN Reason: Pain/Fever Last Admin: 07/30/16 21:20 Dose: 1,000 mg Albuterol (Proventil Neb Soln) 2.5 mg NEB Q4H PRN PRN Reason: Shortness Of Breath/wheezing Albuterol/Ipratropium (Duoneb 3.0-0.5 Mg/3 Ml) 3 ml NEB QIDRT [facility] Last Admin: 08/02/16 14:52 Dose: 3 ml Alprazolam (Xanax) 0.25 mg PO TID PRN PRN Reason: Anxiety Last Admin: 07/30/16 21:21 Dose: 0.25 mg Aspirin (Aspirin) 81 mg PO DAILY [facility] Last Admin: 08/02/16 08:05 Dose: 81 mg Azathioprine (Imuran) 150 mg PO DAILY [facility] Last Admin: 08/02/16 08:12 Dose: 150 mg Benzonatate (Tessalon Perles) 100 mg PO TID PRN PRN Reason: Cough Last Admin: 07/30/16 08:59 Dose: 100 mg Bumetanide (Bumex) 2 mg PO BIDDIURETIC [facility] Last Admin: 08/02/16 13:49 Dose: 2 mg Clotrimazole (Mycelex) 10 mg PO DAILY [facility] Last Admin: 08/02/16 08:12 Dose: 10 mg Enoxaparin Sodium (Lovenox) 40 mg SUBCUT DAILY [facility] Last Admin: 08/02/16 08:11 Dose: 40 mg Escitalopram Oxalate 10 mg/ (Escitalopram Oxalate 20 mg) 30 mg PO BEDTIME [facility] Last Admin: 08/01/16 20:14 Dose: 30 mg Ferrous Sulfate (Ferrous Sulfate) 325 mg PO DAILY [facility] Last Admin: 08/02/16 08:09 Dose: 325 mg Folic Acid (Folic Acid) 1 mg PO DAILY [facility] Last Admin: 08/02/16 08:11 Dose: 1 mg Gabapentin (Neurontin) 300 mg PO BID [facility] Last Admin: 08/02/16 08:10 Dose: 300 mg Heparin Sodium (Porcine) (Heparin Lock Flush 100 Units/Ml Syringe) 500 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 Last Admin: 08/01/16 15:38 Dose: 500 units Ceftazidime 1 gm/ Sodium (Chloride) 50 mls @ 100 mls/hr IV Q8H [facility] Last Admin: 08/02/16 16:35 Dose: 100 mls/hr Azithromycin 500 mg/ Sodium (Chloride) 250 mls @ 250 mls/hr IV Q24H [facility] Last Admin: 08/02/16 15:28 Dose: 250 mls/hr Insulin Aspart (Novolog) 0 unit SUBCUT QIDACANDBED [facility] PRN Reason: Protocol Last Admin: 08/02/16 16:25 Dose: 6 unit Insulin Aspart (Novolog) 10 unit SUBCUT TIDMEALS [facility] Last Admin: 08/02/16 16:33 Dose: 10 unit Insulin Detemir (Levemir) 50 unit SUBCUT BEDTIME [facility] Last Admin: 08/01/16 21:21 Dose: 50 units Isosorbide Mononitrate (Imdur) 30 mg PO DAILY [facility] Last Admin: 08/02/16 08:09 Dose: 30 mg Lactobacillus Rhamnosus (Culturelle) 1 cap PO BID [facility] Last Admin: 08/02/16 08:06 Dose: 1 cap Lisinopril (Prinivil) 20 mg PO DAILY [facility] Last Admin: 08/02/16 08:07 Dose: 20 mg Lorazepam (Ativan) 0.5 - 1 mg IV Q4H PRN PRN Reason: Nausea/Vomiting Last Admin: 08/02/16 14:08 Dose: 1 mg Magnesium Hydroxide (Milk Of Magnesia) 30 ml PO Q12H PRN PRN Reason: Constipation Magnesium Oxide (Magnesium Oxide) 400 mg PO BID [facility] Last Admin: 08/02/16 08:10 Dose: 400 mg Metformin HCl (Glucophage) 850 mg PO BIDMEALS [facility] Last Admin: 08/02/16 16:35 Dose: 850 mg Methylprednisolone Sodium Succinate (Solu-Medrol) 62.5 mg IVPUSH Q8H [facility] Last Admin: 08/02/16 15:49 Dose: 62.5 mg Metoprolol Succinate (Toprol Xl) 25 mg PO BEDTIME [facility] Last Admin: 08/01/16 20:16 Dose: 25 mg Mometasone Furoate/Formoterol Fumar (Dulera 200-5 Mcg) 2 puff IH BIDRT [facility] Last Admin: 08/02/16 07:34 Dose: 2 puff Morphine Sulfate (Morphine) 30 mg PO Q4H PRN PRN Reason: shortness of breath Last Admin: 08/02/16 02:53 Dose: 30 mg Morphine Sulfate (Morphine) 4 - 8 mg IVPUSH Q4H PRN PRN Reason: Pain Last Admin: 08/02/16 14:10 Dose: 4 mg Ondansetron HCl (Zofran Odt) 4 mg PO Q6H PRN PRN Reason: Nausea able to take PO Oseltamivir Phosphate (Tamiflu) 75 mg PO BID [facility] Stop: 08/04/16 07:00 Last Admin: 08/02/16 08:10 Dose: 75 mg Oxybutynin Chloride (Oxybutynin) 5 mg PO BID [facility] Last Admin: 08/02/16 08:09 Dose: 5 mg Pantoprazole Sodium (Protonix) 40 mg PO ACBREAKFAST [facility] Last Admin: 08/02/16 07:54 Dose: 40 mg Polyethylene Glycol (Miralax) 17 gm PO DAILY PRN PRN Reason: Constipation Potassium Chloride (Klor-Con M20) 20 meq PO BIDMEALS [facility] Last Admin: 08/02/16 16:36 Dose: 20 meq Promethazine HCl (Phenergan) 25 mg PO Q8H PRN PRN Reason: Nausea Last Admin: 07/30/16 12:27 Dose: 25 mg Simvastatin (Zocor) 10 mg PO BEDTIME [facility] Last Admin: 08/01/16 20:19 Dose: 10 mg Sodium Chloride (Saline Flush) 10 ml FLUSH ASDIRECTED PRN PRN Reason: Keep Vein Open Last Admin: 08/01/16 15:38 Dose: 10 ml Sucralfate (Carafate) 1 gm PO QIDACANDBED [facility] Last Admin: 08/02/16 16:35 Dose: 1 gm Trazodone HCl (Trazodone) 50 mg PO BEDTIME [facility] Last Admin: 08/01/16 20:18 Dose: 50 mg Verapamil HCl (Calan Sr) 180 mg PO BIDAC [facility] Last Admin: 08/02/16 15:53 Dose: 180 mg Discontinued Medications Acetaminophen (Tylenol) 650 mg PO Q4H PRN PRN Reason: Pain (Mild 1-3)/fever Last Admin: 07/30/16 13:16 Dose: 650 mg Alteplase, Recombinant (Cathflo Activase) 2 mg IVPUSH ONETIME ONE Stop: 07/31/16 12:31 Last Admin: 07/31/16 12:40 Dose: 2 mg Bumetanide (Bumex) 2 mg IVPUSH ONETIME ONE Stop: 07/29/16 15:16 Last Admin: 07/29/16 15:22 Dose: 2 mg Bumetanide (Bumex) 2 mg IVPUSH BIDDIURETIC [facility] Last Admin: 07/31/16 10:54 Dose: Not Given Heparin Sodium (Porcine) (Heparin Lock Flush 100 Units/Ml Syringe) Confirm Administered Dose 500 units .ROUTE .STK-MED ONE Stop: 07/29/16 15:15 Last Admin: 07/29/16 15:25 Dose: 500 units Heparin Sodium (Porcine) (Heparin Lock Flush 100 Units/Ml Syringe) Confirm Administered Dose 500 units .ROUTE .STK-MED ONE Stop: 07/29/16 22:03 Last Admin: 07/29/16 22:35 Dose: 500 units Heparin Sodium (Porcine) (Heparin Lock Flush 100 Units/Ml Syringe) Confirm Administered Dose 500 units .ROUTE .STK-MED ONE Stop: 07/30/16 00:32 Last Admin: 07/30/16 10:45 Dose: Not Given Sodium Chloride (Normal Saline) 500 mls @ 500 mls/hr IV .BOLUS ONE Stop: 07/30/16 17:44 Last Admin: 07/30/16 17:04 Dose: 500 mls/hr Vancomycin HCl 1.75 gm/ Sodium (Chloride) 250 mls @ 167 mls/hr IV Q12H [facility] Last Admin: 07/30/16 20:11 Dose: Not Given Sodium Chloride (Normal Saline) 500 mls @ 500 mls/hr IV .BOLUS ONE Stop: 07/30/16 19:39 Last Admin: 02/28/17 19:41 Dose: 500 mls/hr Insulin Aspart (Novolog) 15 unit SUBCUT ONETIME ONE Stop: 07/31/16 12:16 Last Admin: 07/31/16 12:27 Dose: 15 units Insulin Detemir (Levemir) 30 unit SUBCUT BEDTIME [facility] Last Admin: 07/29/16 22:41 Dose: 30 units Insulin Detemir (Levemir) 40 unit SUBCUT BEDTIME [facility] Last Admin: 07/30/16 21:06 Dose: 40 unit Prednisone (Prednisone) 20 mg PO BIDMEALS [facility] Last Admin: 07/30/16 09:14 Dose: 20 mg - Exam Quality Assessment: supplemental oxygen General: alert, oriented, cooperative, no acute distress Neck: supple Lungs: Normal respiratory effort, Crackles (both lung bases), Wheezing (mild expiratory wheezing in the lung higgins) Cardiovascular: regular rate, regular rhythm Abdomen: soft, no distension Extremities: no cyanosis, edema (pitting edema both lower legs to mid [place]) Skin: warm, dry Psy/Mental Status: alert, normal affect - Problem List & Annotations (1) Influenza A SNOMED Code(s): 926145900 Code(s): J10.1 - FLU DUE TO OTH IDENT INFLUENZA VIRUS W OTH RESP MANIFEST Status: Acute Current Visit: Yes (2) Acute cystitis SNOMED Code(s): 30182490 Code(s): N30.00 - ACUTE CYSTITIS WITHOUT HEMATURIA Status: Acute Current Visit: Yes Qualifiers: Hematuria presence: without hematuria Qualified Code(s): N30.00 - Acute cystitis without hematuria (3) (HFpEF) heart failure with preserved ejection fraction SNOMED Code(s): 93145831 Code(s): I50.30 - UNSPECIFIED DIASTOLIC (CONGESTIVE) HEART FAILURE Status: Chronic Current Visit: No (4) Diabetes mellitus type 2 SNOMED Code(s): 48941988 Code(s): E11.9 - TYPE 2 DIABETES MELLITUS WITHOUT COMPLICATIONS Status: Chronic Priority: High Current Visit: No (5) Rheumatoid arthritis SNOMED Code(s): 99245463 Code(s): M06.9 - RHEUMATOID ARTHRITIS, UNSPECIFIED Status: Chronic Priority: Medium Current Visit: No Qualifiers: Rheumatoid arthritis location: multiple sites Rheumatoid factor presence: unspecified presence Qualified Code(s): M06.9 - Rheumatoid arthritis, unspecified - Problem List Review Problem List Initiated/Reviewed/Updated: Yes - My Orders Last 24 Hours: My Active Orders 08/02/16 14:00 Bumetanide [Bumex] 2 mg PO BIDDIURETIC 08/02/16 21:00 GLUCOSE POC LAB TO COLLECT [POC] QIDACANDBED 08/03/16 07:30 GLUCOSE POC LAB TO COLLECT [POC] QIDACANDBED 08/03/16 11:30 GLUCOSE POC LAB TO COLLECT [POC] QIDACANDBED 08/03/16 16:30 GLUCOSE POC LAB TO COLLECT [POC] QIDACANDBED 08/03/16 21:00 GLUCOSE POC LAB TO COLLECT [POC] QIDACANDBED 08/04/16 07:30 GLUCOSE POC LAB TO COLLECT [POC] QIDACANDBED 08/04/16 11:30 GLUCOSE POC LAB TO COLLECT [POC] QIDACANDBED - Plan Plan:: Assessment and plan - Acute influenza A. with acute exacerbation of COPD - patient tested positive and Tamiflu has been initiated. Fever curve has normalized and is showing some slow clinical improvement. still wheezing some. -Tamiflu -morphine for chest pain -Nebulizers -Continue azithromycin and ceftazidime for now -supplement oxygen as needed Subacute exacerbation of congestive heart failure with preserved ejection fraction - some increase in her edema today, diuretics will be restarted. -Mr. diuretics -Monitor electrolytes -Continue medical management including beta marsha and long-acting nitrate -Morphine as needed for air hunger Acute cystitis - no symptoms but urine sample suggestive of infection. History of similar. Patient has partially resistant Enterobacter and ceftazidime should be sufficient based on allergies and culture results. -followup Urine culture -Ceftazidime for 5 days Rheumatoid arthritis - often has difficulty with increasing symptoms around the time of an infection. -Continue Solu-Medrol, try to transition to steroids tomorrow Insulin-dependent diabetes mellitus, suboptimally controlled - sugars are suboptimally controlled well on steroids but have improved some with increased doses of long-acting insulin -Continue increased dose of long-acting insulin -Mealtime insulin -Sliding-scale Maintenance issues - - DVT prophylaxis - enoxaparin - GI prophylaxis - PPI - Nutrition - consistent carbohydrate diet - Dougherty catheter - not indicated Disposition - anticipate discharge to home after the hospital stay Saran Bolivar M.D.
[2016-08-02] MEDS: ALPRAZolam 0.25 MG Tab PO PRN (18:53)
[2016-08-02] MEDS: ESCITALOPRAM PO SCH ×2 (20:25)
[2016-08-02] MEDS: traZODone 50 MG Tab PO SCH (20:27)
[2016-08-02] MEDS: Metoprolol Succinate 25 MG Tab.ER PO SCH (20:27)
[2016-08-02] MEDS: Simvastatin 20 MG Tab PO SCH (20:28)
[2016-08-02] MEDS ORDERED: Insulin Aspart 100 Units/ML 3 ML Pen SUBCUT ONE (21:08)
--- NOTE | 2016-08-02 21:13 | PCM.SN ---
- Free Text/Narrative Note: time: 2105 s; call from [address] [place] [address]; blood glucose [phone] a; hyperglycemia p; order Novolog 20 units subcut. continue present plan of care.
[2016-08-02] MEDS: Insulin Detemir 100 Units/ML 3 ML Pen SUBCUT SCH (21:23)
[2016-08-03] MEDS: methylPREDNISolone Sodium Succinate 125 MG/2 ML SDV IVPUSH SCH ×2 (00:26→09:00)
[2016-08-03] MEDS: cefTAZidime 1 GM in Sodium Chloride 0.9% 50 ML IV SCH ×3 (00:27→17:14)
[2016-08-03] MEDS: Morphine 4 MG/ML Syringe IVPUSH PRN (00:33)
[2016-08-03] MEDS: Promethazine 25 MG Tab PO PRN (00:42)
[2016-08-03] MEDS: Formoterol/Mometasone 200-5 MCG 8.8 GM Inhaler IH SCH ×2 (07:25→21:47)
[2016-08-03] MEDS: Albuterol/Ipratropium 3.0-0.5 MG/3 ML Neb Soln NEB SCH ×5 (07:25→22:01)
[2016-08-03] MEDS: Sucralfate 1 GM Tab PO SCH ×4 (08:17→21:46)
[2016-08-03] MEDS: Pantoprazole 40 MG Tab.CR PO SCH (08:18)
[2016-08-03] MEDS: Verapamil 180 MG Tab.ER PO SCH ×2 (08:18→17:10)
[2016-08-03] MEDS: Bumetanide 1 MG Tab PO SCH ×2 (08:19→14:46)
[2016-08-03] MEDS: Potassium Chloride 20 MEQ Tab.ER PO SCH ×2 (08:20→17:12)
[2016-08-03] MEDS: Insulin Aspart 100 Units/ML 3 ML Pen SUBCUT SCH ×7 (08:29→21:44)
[2016-08-03] MEDS: Oseltamivir 75 MG Cap PO SCH ×2 (09:23→21:49)
[2016-08-03] MEDS: Gabapentin 300 MG Cap PO SCH ×2 (09:23→21:48)
[2016-08-03] MEDS: Ferrous Sulfate 325 MG Tab PO SCH (09:23)
[2016-08-03] MEDS: Oxybutynin 5 MG Tab PO SCH ×2 (09:23→21:49)
[2016-08-03] MEDS: Isosorbide Mononitrate 30 MG Tab.ER PO SCH (09:24)
[2016-08-03] MEDS: Folic Acid 1 MG Tab PO SCH (09:24)
[2016-08-03] MEDS: Magnesium Oxide 400 MG Tab PO SCH ×2 (09:24→21:48)
[2016-08-03] MEDS: Clotrimazole 10 MG Troche PO SCH (09:24)
[2016-08-03] MEDS: Lactobacillus Rhamnosus GG (Probiotic) Cap PO SCH ×2 (09:24→21:47)
[2016-08-03] MEDS: Lisinopril 20 MG Tab PO SCH (09:27)
[2016-08-03] MEDS: Aspirin 81 MG Tab.Chew PO SCH (09:35)
[2016-08-03] MEDS: Enoxaparin 40 MG/0.4 ML Syringe SUBCUT SCH (09:36)
[2016-08-03] MEDS: methylPREDNISolone Sodium Succinate 40 MG/1 ML SDV IVPUSH SCH ×2 (09:37→17:24)
--- NOTE | 2016-08-03 10:53 | PCM.PN ---
- General Info Date of Service: 08/03/16 Functional Status: Reports: tolerating diet, ambulating - Review of Systems Pulmonary: Reports: shortness of breath, cough Systems Review Comment:: No acute events overnight. Patient reports that she is slowly feeling better with less muscle aches and pains as well as some improvement in her shortness of breath. Still having trouble with pleuritic chest pain and pain with coughing. Blood sugars have been significantly elevated overnight but responded to subcutaneous insulin. She has not been having any fevers. Cultures are all negative. Appetite is not great but she has had good intake. Lower extremity edema is a little better today. - Patient Data Vitals - most recent: Last Vital Signs Temp 36.8 C 08/03/16 07:31 Pulse 72 08/03/16 07:31 Resp 20 08/03/16 07:31 BP 179/104 H 08/03/16 09:27 Pulse Ox 92 L 08/03/16 07:31 Weight - most recent: 136.078 kg I&O - last 24 hours: Intake & Output 08/02/16 08/03/16 08/03/16 22:59 06:59 14:59 Intake Total 1260 50 Output Total 1300 1000 300 Balance -40 -950 -300 Frank Results last 24 hrs: Microbiology 07/30/16 16:45 Aerobic Blood Culture - Preliminary Blood - Arm, Right NO GROWTH AFTER 3 DAYS Anaerobic Blood Culture - Preliminary NO GROWTH AFTER 3 DAYS 07/30/16 16:45 Aerobic Blood Culture - Preliminary Blood - Arm, Right NO GROWTH AFTER 3 DAYS Anaerobic Blood Culture - Preliminary NO GROWTH AFTER 3 DAYS Med Orders - Current: Current Medications Acetaminophen (Tylenol Extra Strength) 1,000 mg PO TID PRN PRN Reason: Pain/Fever Last Admin: 07/30/16 21:20 Dose: 1,000 mg Albuterol (Proventil Neb Soln) 2.5 mg NEB Q4H PRN PRN Reason: Shortness Of Breath/wheezing Albuterol/Ipratropium (Duoneb 3.0-0.5 Mg/3 Ml) 3 ml NEB QIDRT OSMEL Last Admin: 08/03/16 07:25 Dose: 3 ml Alprazolam (Xanax) 0.25 mg PO TID PRN PRN Reason: Anxiety Last Admin: 08/02/16 18:53 Dose: 0.25 mg Aspirin (Aspirin) 81 mg PO DAILY [facility] Last Admin: 08/03/16 09:35 Dose: 81 mg Azathioprine (Imuran) 150 mg PO DAILY [facility] Last Admin: 08/03/16 09:50 Dose: 150 mg Benzonatate (Tessalon Perles) 100 mg PO TID PRN PRN Reason: Cough Last Admin: 07/30/16 08:59 Dose: 100 mg Bumetanide (Bumex) 2 mg PO BIDDIURETIC [facility] Last Admin: 08/03/16 08:19 Dose: 2 mg Clotrimazole (Mycelex) 10 mg PO DAILY [facility] Last Admin: 08/03/16 09:24 Dose: 10 mg Enoxaparin Sodium (Lovenox) 40 mg SUBCUT DAILY [facility] Last Admin: 08/03/16 09:36 Dose: 40 mg Escitalopram Oxalate 10 mg/ (Escitalopram Oxalate 20 mg) 30 mg PO BEDTIME [facility] Last Admin: 08/02/16 20:25 Dose: 30 mg Ferrous Sulfate (Ferrous Sulfate) 325 mg PO DAILY [facility] Last Admin: 08/03/16 09:23 Dose: 325 mg Folic Acid (Folic Acid) 1 mg PO DAILY [facility] Last Admin: 08/03/16 09:24 Dose: 1 mg Gabapentin (Neurontin) 300 mg PO BID [facility] Last Admin: 08/03/16 09:23 Dose: 300 mg Heparin Sodium (Porcine) (Heparin Lock Flush 100 Units/Ml Syringe) 500 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 Last Admin: 08/01/16 15:38 Dose: 500 units Ceftazidime 1 gm/ Sodium (Chloride) 50 mls @ 100 mls/hr IV Q8H [facility] Last Admin: 08/03/16 09:32 Dose: 100 mls/hr Azithromycin 500 mg/ Sodium (Chloride) 250 mls @ 250 mls/hr IV Q24H [facility] Last Admin: 08/02/16 15:28 Dose: 250 mls/hr Insulin Aspart (Novolog) 0 unit SUBCUT QIDACANDBED [facility] PRN Reason: Protocol Last Admin: 08/03/16 08:29 Dose: 12 unit Insulin Aspart (Novolog) 10 unit SUBCUT TIDMEALS [facility] Last Admin: 08/03/16 08:31 Dose: 10 unit Insulin Detemir (Levemir) 50 unit SUBCUT BEDTIME [facility] Last Admin: 08/02/16 21:23 Dose: 50 units Isosorbide Mononitrate (Imdur) 30 mg PO DAILY [facility] Last Admin: 08/03/16 09:24 Dose: 30 mg Lactobacillus Rhamnosus (Culturelle) 1 cap PO BID [facility] Last Admin: 08/03/16 09:24 Dose: 1 cap Lisinopril (Prinivil) 20 mg PO DAILY [facility] Last Admin: 08/03/16 09:27 Dose: 20 mg Lorazepam (Ativan) 0.5 - 1 mg IV Q4H PRN PRN Reason: Nausea/Vomiting Last Admin: 08/02/16 20:17 Dose: 1 mg Magnesium Hydroxide (Milk Of Magnesia) 30 ml PO Q12H PRN PRN Reason: Constipation Last Admin: 08/03/16 09:38 Dose: 30 ml Magnesium Oxide (Magnesium Oxide) 400 mg PO BID [facility] Last Admin: 08/03/16 09:24 Dose: 400 mg Metformin HCl (Glucophage) 850 mg PO BIDMEALS [facility] Last Admin: 08/03/16 08:19 Dose: 850 mg Methylprednisolone Sodium Succinate (Solu-Medrol) 40 mg IVPUSH Q8H [facility] Last Admin: 08/03/16 09:37 Dose: Not Given Metoprolol Succinate (Toprol Xl) 25 mg PO BEDTIME [facility] Last Admin: 08/02/16 20:27 Dose: 25 mg Mometasone Furoate/Formoterol Fumar (Dulera 200-5 Mcg) 2 puff IH BIDRT [facility] Last Admin: 08/03/16 07:25 Dose: 2 puff Morphine Sulfate (Morphine) 30 mg PO Q4H PRN PRN Reason: shortness of breath Last Admin: 08/02/16 02:53 Dose: 30 mg Morphine Sulfate (Morphine) 4 - 8 mg IVPUSH Q4H PRN PRN Reason: Pain Last Admin: 08/03/16 00:33 Dose: 4 mg Ondansetron HCl (Zofran Odt) 4 mg PO Q6H PRN PRN Reason: Nausea able to take PO Oseltamivir Phosphate (Tamiflu) 75 mg PO BID [facility] Stop: 08/04/16 07:00 Last Admin: 08/03/16 09:23 Dose: 75 mg Oxybutynin Chloride (Oxybutynin) 5 mg PO BID [facility] Last Admin: 08/03/16 09:23 Dose: 5 mg Pantoprazole Sodium (Protonix) 40 mg PO ACBREAKFAST [facility] Last Admin: 08/03/16 08:18 Dose: 40 mg Polyethylene Glycol (Miralax) 17 gm PO DAILY PRN PRN Reason: Constipation Potassium Chloride (Klor-Con M20) 20 meq PO BIDMEALS [facility] Last Admin: 08/03/16 08:20 Dose: 20 meq Promethazine HCl (Phenergan) 25 mg PO Q8H PRN PRN Reason: Nausea Last Admin: 08/03/16 00:42 Dose: 25 mg Simvastatin (Zocor) 10 mg PO BEDTIME [facility] Last Admin: 08/02/16 20:28 Dose: 10 mg Sodium Chloride (Saline Flush) 10 ml FLUSH ASDIRECTED PRN PRN Reason: Keep Vein Open Last Admin: 08/01/16 15:38 Dose: 10 ml Sucralfate (Carafate) 1 gm PO QIDACANDBED [facility] Last Admin: 08/03/16 08:17 Dose: 1 gm Trazodone HCl (Trazodone) 50 mg PO BEDTIME [facility] Last Admin: 08/02/16 20:27 Dose: 50 mg Verapamil HCl (Calan Sr) 180 mg PO BIDAC [facility] Last Admin: 08/03/16 08:18 Dose: 180 mg Discontinued Medications Acetaminophen (Tylenol) 650 mg PO Q4H PRN PRN Reason: Pain (Mild 1-3)/fever Last Admin: 07/30/16 13:16 Dose: 650 mg Alteplase, Recombinant (Cathflo Activase) 2 mg IVPUSH ONETIME ONE Stop: 07/31/16 12:31 Last Admin: 07/31/16 12:40 Dose: 2 mg Bumetanide (Bumex) 2 mg IVPUSH ONETIME ONE Stop: 07/29/16 15:16 Last Admin: 07/29/16 15:22 Dose: 2 mg Bumetanide (Bumex) 2 mg IVPUSH BIDDIURETIC [facility] Last Admin: 07/31/16 10:54 Dose: Not Given Heparin Sodium (Porcine) (Heparin Lock Flush 100 Units/Ml Syringe) Confirm Administered Dose 500 units .ROUTE .STK-MED ONE Stop: 07/29/16 15:15 Last Admin: 07/29/16 15:25 Dose: 500 units Heparin Sodium (Porcine) (Heparin Lock Flush 100 Units/Ml Syringe) Confirm Administered Dose 500 units .ROUTE .STK-MED ONE Stop: 07/29/16 22:03 Last Admin: 07/29/16 22:35 Dose: 500 units Heparin Sodium (Porcine) (Heparin Lock Flush 100 Units/Ml Syringe) Confirm Administered Dose 500 units .ROUTE .STK-MED ONE Stop: 07/30/16 00:32 Last Admin: 07/30/16 10:45 Dose: Not Given Sodium Chloride (Normal Saline) 500 mls @ 500 mls/hr IV .BOLUS ONE Stop: 07/30/16 17:44 Last Admin: 07/30/16 17:04 Dose: 500 mls/hr Vancomycin HCl 1.75 gm/ Sodium (Chloride) 250 mls @ 167 mls/hr IV Q12H [facility] Last Admin: 07/30/16 20:11 Dose: Not Given Sodium Chloride (Normal Saline) 500 mls @ 500 mls/hr IV .BOLUS ONE Stop: 07/30/16 19:39 Last Admin: 07/30/16 19:41 Dose: 500 mls/hr Insulin Aspart (Novolog) 15 unit SUBCUT ONETIME ONE Stop: 07/31/16 12:16 Last Admin: 07/31/16 12:27 Dose: 15 units Insulin Aspart (Novolog) 20 unit SUBCUT ONETIME ONE Stop: 08/02/16 21:09 Last Admin: 08/02/16 21:24 Dose: 20 units Insulin Detemir (Levemir) 30 unit SUBCUT BEDTIME [facility] Last Admin: 07/29/16 22:41 Dose: 30 units Insulin Detemir (Levemir) 40 unit SUBCUT BEDTIME [facility] Last Admin: 07/30/16 21:06 Dose: 40 unit Methylprednisolone Sodium Succinate (Solu-Medrol) 62.5 mg IVPUSH Q8H [facility] Last Admin: 08/03/16 09:00 Dose: 62.5 mg Prednisone (Prednisone) 20 mg PO BIDMEALS [facility] Last Admin: 07/30/16 09:14 Dose: 20 mg - Exam Quality Assessment: supplemental oxygen. No: urine catheter General: alert, oriented, cooperative, no acute distress Neck: supple Lungs: Normal respiratory effort, Crackles (Few at the bases). No: Wheezing Cardiovascular: regular rate, regular rhythm Abdomen: soft, no distension Extremities: no cyanosis, edema (Pitting edema both lower legs to mid [place]) Skin: warm, dry Psy/Mental Status: alert, normal affect - Problem List & Annotations (1) Influenza A SNOMED Code(s): 260741496 Code(s): J10.1 - FLU DUE TO OTH IDENT INFLUENZA VIRUS W OTH RESP MANIFEST Status: Acute Current Visit: Yes (2) Acute cystitis SNOMED Code(s): 45544379 Code(s): N30.00 - ACUTE CYSTITIS WITHOUT HEMATURIA Status: Acute Current Visit: Yes Qualifiers: Hematuria presence: without hematuria Qualified Code(s): N30.00 - Acute cystitis without hematuria (3) (HFpEF) heart failure with preserved ejection fraction SNOMED Code(s): 19482121 Code(s): I50.30 - UNSPECIFIED DIASTOLIC (CONGESTIVE) HEART FAILURE Status: Chronic Current Visit: No (4) Diabetes mellitus type 2 SNOMED Code(s): 48029172 Code(s): E11.9 - TYPE 2 DIABETES MELLITUS WITHOUT COMPLICATIONS Status: Chronic Priority: High Current Visit: No (5) Rheumatoid arthritis SNOMED Code(s): 67942097 Code(s): M06.9 - RHEUMATOID ARTHRITIS, UNSPECIFIED Status: Chronic Priority: Medium Current Visit: No Qualifiers: Rheumatoid arthritis location: multiple sites Rheumatoid factor presence: unspecified presence Qualified Code(s): M06.9 - Rheumatoid arthritis, unspecified - Problem List Review Problem List Initiated/Reviewed/Updated: Yes - My Orders Last 24 Hours: My Active Orders 08/02/16 14:00 Bumetanide [Bumex] 2 mg PO BIDDIURETIC 08/02/16 16:47 Communication Order [RC] ROUTINE 08/03/16 10:00 methylPREDNISolone Sod Succ [Solu-MEDROL] 40 mg IVPUSH Q8H 08/03/16 11:30 GLUCOSE POC LAB TO COLLECT [POC] QIDACANDBED 08/03/16 16:30 GLUCOSE POC LAB TO COLLECT [POC] QIDACANDBED 08/03/16 21:00 GLUCOSE POC LAB TO COLLECT [POC] QIDACANDBED 08/04/16 05:00 BASIC METABOLIC PANEL,BMP [CHEM] Timed CBC W/O DIFF,HEMOGRAM [HEME] Timed (1) 08/04/16 07:30 GLUCOSE POC LAB TO COLLECT [POC] QIDACANDBED 08/04/16 11:30 GLUCOSE POC LAB TO COLLECT [POC] QIDACANDBED - Plan Plan:: Assessment and plan - Acute influenza A. with acute exacerbation of COPD - patient tested positive and Tamiflu has been initiated. Fever curve has normalized and is showing some slow clinical improvement. Oxygenation has been improving. Examination is improving. -Tamiflu -morphine for chest pain -Nebulizers -Continue azithromycin and ceftazidime, plan to discontinue tomorrow -supplement oxygen as needed Subacute exacerbation of congestive heart failure with preserved ejection fraction - edema is a little better with diuresis. -Continue diuretics -Monitor electrolytes -Continue medical management including beta marsha and long-acting nitrate -Morphine as needed for air hunger Acute cystitis - Patient has partially resistant Enterobacter and ceftazidime should be sufficient based on allergies and culture results. -followup Urine culture -Ceftazidime for 5 days (discontinue tomorrow) Rheumatoid arthritis - often has difficulty with increasing symptoms around the time of an infection. -Continue Solu-Medrol, decreasing dose today, plan to change to prednisone tomorrow Insulin-dependent diabetes mellitus, suboptimally controlled - sugars are suboptimally controlled well on steroids. Hopefully with dose reduction and steroids her sugars will improve. -Continue increased dose of long-acting insulin -Mealtime insulin -Sliding-scale Maintenance issues - - DVT prophylaxis - enoxaparin - GI prophylaxis - PPI - Nutrition - consistent carbohydrate diet - Dougherty catheter - not indicated Disposition - anticipate discharge to home after the hospital stay Saran Bolivar M.D.
[2016-08-03] MEDS: LORazepam 2 MG/ML MDV IV PRN (12:13)
[2016-08-03] MEDS: Azithromycin 500 MG in Sodium Chloride 0.9% 250 ML IV SCH (14:55)
[2016-08-03] MEDS: ALPRAZolam 0.25 MG Tab PO PRN (17:10)
[2016-08-03] MEDS: Insulin Detemir 100 Units/ML 3 ML Pen SUBCUT SCH (21:45)
[2016-08-03] MEDS: ESCITALOPRAM PO SCH ×2 (21:48)
[2016-08-03] MEDS: Metoprolol Succinate 25 MG Tab.ER PO SCH (21:49)
[2016-08-03] MEDS: traZODone 50 MG Tab PO SCH (21:50)
[2016-08-03] MEDS: Simvastatin 20 MG Tab PO SCH (21:50)
[2016-08-04] MEDS: cefTAZidime 1 GM in Sodium Chloride 0.9% 50 ML IV SCH ×3 (01:01→17:32)
[2016-08-04] MEDS: methylPREDNISolone Sodium Succinate 40 MG/1 ML SDV IVPUSH SCH ×3 (03:00→17:34)
[2016-08-04] MEDS: Insulin Aspart 100 Units/ML 3 ML Pen SUBCUT SCH ×7 (07:30→21:18)
[2016-08-04] MEDS: Verapamil 180 MG Tab.ER PO SCH ×2 (07:33→17:38)
[2016-08-04] MEDS: Pantoprazole 40 MG Tab.CR PO SCH (07:34)
[2016-08-04] MEDS: Sucralfate 1 GM Tab PO SCH ×4 (07:36→20:16)
[2016-08-04] MEDS: Albuterol/Ipratropium 3.0-0.5 MG/3 ML Neb Soln NEB SCH ×4 (07:45→20:29)
[2016-08-04] MEDS: Formoterol/Mometasone 200-5 MCG 8.8 GM Inhaler IH SCH ×2 (07:45→20:16)
[2016-08-04] MEDS: Bumetanide 1 MG Tab PO SCH ×2 (08:37→13:22)
[2016-08-04] MEDS: Aspirin 81 MG Tab.Chew PO SCH (08:38)
[2016-08-04] MEDS: Folic Acid 1 MG Tab PO SCH (08:38)
[2016-08-04] MEDS: Ferrous Sulfate 325 MG Tab PO SCH (08:38)
[2016-08-04] MEDS: Potassium Chloride 20 MEQ Tab.ER PO SCH ×2 (08:38→17:39)
[2016-08-04] MEDS: Isosorbide Mononitrate 30 MG Tab.ER PO SCH (08:38)
[2016-08-04] MEDS: Lactobacillus Rhamnosus GG (Probiotic) Cap PO SCH ×2 (08:38→20:13)
[2016-08-04] MEDS: Enoxaparin 40 MG/0.4 ML Syringe SUBCUT SCH (08:42)
[2016-08-04] MEDS: Oxybutynin 5 MG Tab PO SCH ×2 (08:43→20:15)
[2016-08-04] MEDS: Lisinopril 20 MG Tab PO SCH (08:43)
[2016-08-04] MEDS: Gabapentin 300 MG Cap PO SCH ×2 (08:43→20:15)
[2016-08-04] MEDS: Magnesium Oxide 400 MG Tab PO SCH ×2 (08:43→20:15)
[2016-08-04] MEDS: Clotrimazole 10 MG Troche PO SCH (08:54)
[2016-08-04] MEDS: ALPRAZolam 0.25 MG Tab PO PRN (10:31)
[2016-08-04] MEDS: Acetaminophen 500 MG Tab PO PRN (12:52)
[2016-08-04] MEDS: Azithromycin 500 MG in Sodium Chloride 0.9% 250 ML IV SCH (15:36)
--- NOTE | 2016-08-04 17:09 | PCM.PN ---
- General Info Date of Service: 08/04/16 Functional Status: Reports: pain controlled, tolerating diet, ambulating - Review of Systems General: Reports: weakness Pulmonary: Reports: shortness of breath Cardiovascular: Reports: chest pain Systems Review Comment:: No acute events overnight. Still having trouble with chest pain when she coughs. Still feels short of breath though her oxygen numbers have been excellent. She has not been running any fevers. No complaints of abdominal pain or diarrhea. Blood sugars have been running high but seem a little better today. Short of breath with any activity. - Patient Data Vitals - most recent: Last Vital Signs Temp 37.1 C 08/04/16 14:13 Pulse 86 08/04/16 14:48 Resp 18 08/04/16 14:13 BP 118/84 08/04/16 14:13 Pulse Ox 91 L 08/04/16 14:13 Weight - most recent: 136.078 kg I&O - last 24 hours: Intake & Output 08/04/16 08/04/16 08/04/16 06:59 14:59 22:59 Intake Total 50 410 Output Total 900 Balance 50 -490 Lab Results last 24 hrs: Laboratory Results - last 24 hr 08/04/16 08/04/16 Range/Units 06:03 06:03 WBC 8.8 (4.5-11.0) K/uL RBC 4.22 (3.30-5.50) M/uL Hgb 10.7 L (12.0-15.0) g/dL Hct 37.2 (36.0-48.0) % MCV 88 (80-98) fL MCH 25 L (27-31) pg MCHC 29 L (32-36) % Plt Count 218 (150-400) K/uL Sodium 146 (140-148) mmol/L Potassium 3.7 (3.6-5.2) mmol/L Chloride 99 L (100-108) mmol/L Carbon Dioxide 44 H (21-32) mmol/L Anion Gap 6.7 (5.0-14.0) mmol/L BUN 25 H (7-18) mg/dL Creatinine 0.6 (0.6-1.0) mg/dL Est Cr Clr Drug Dosing 91.01 mL/min Estimated GFR (MDRD) > 60 (>60) Glucose 168 H (74-106) mg/dL Calcium 8.2 L (8.5-10.1) mg/dL Frank Results last 24 hrs: Microbiology 07/30/16 16:45 Aerobic Blood Culture - Preliminary Blood - Arm, Right NO GROWTH AFTER 4 DAYS Anaerobic Blood Culture - Preliminary NO GROWTH AFTER 4 DAYS 07/30/16 16:45 Aerobic Blood Culture - Preliminary Blood - Arm, Right NO GROWTH AFTER 4 DAYS Anaerobic Blood Culture - Preliminary NO GROWTH AFTER 4 DAYS Med Orders - Current: Current Medications Acetaminophen (Tylenol Extra Strength) 1,000 mg PO TID PRN PRN Reason: Pain/Fever Last Admin: 08/04/16 12:52 Dose: 1,000 mg Albuterol (Proventil Neb Soln) 2.5 mg NEB Q4H PRN PRN Reason: Shortness Of Breath/wheezing Albuterol/Ipratropium (Duoneb 3.0-0.5 Mg/3 Ml) 3 ml NEB QIDRT [facility] Last Admin: 08/04/16 14:46 Dose: 3 ml Alprazolam (Xanax) 0.25 mg PO TID PRN PRN Reason: Anxiety Last Admin: 08/04/16 10:31 Dose: 0.25 mg Aspirin (Aspirin) 81 mg PO DAILY [facility] Last Admin: 08/04/16 08:38 Dose: 81 mg Azathioprine (Imuran) 150 mg PO DAILY [facility] Last Admin: 08/04/16 09:20 Dose: 150 mg Benzonatate (Tessalon Perles) 100 mg PO TID PRN PRN Reason: Cough Last Admin: 07/30/16 08:59 Dose: 100 mg Bumetanide (Bumex) 2 mg PO BIDDIURETIC [facility] Last Admin: 08/04/16 13:22 Dose: 2 mg Clotrimazole (Mycelex) 10 mg PO DAILY [facility] Last Admin: 08/04/16 08:54 Dose: 10 mg Enoxaparin Sodium (Lovenox) 40 mg SUBCUT DAILY [facility] Last Admin: 08/04/16 08:42 Dose: 40 mg Escitalopram Oxalate 10 mg/ (Escitalopram Oxalate 20 mg) 30 mg PO BEDTIME [facility] Last Admin: 08/03/16 21:48 Dose: 30 mg Ferrous Sulfate (Ferrous Sulfate) 325 mg PO DAILY [facility] Last Admin: 08/04/16 08:38 Dose: 325 mg Folic Acid (Folic Acid) 1 mg PO DAILY [facility] Last Admin: 08/04/16 08:38 Dose: 1 mg Gabapentin (Neurontin) 300 mg PO BID [facility] Last Admin: 08/04/16 08:43 Dose: 300 mg Heparin Sodium (Porcine) (Heparin Lock Flush 100 Units/Ml Syringe) 500 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 Last Admin: 08/01/16 15:38 Dose: 500 units Ceftazidime 1 gm/ Sodium (Chloride) 50 mls @ 100 mls/hr IV Q8H [facility] Last Admin: 08/04/16 09:25 Dose: 100 mls/hr Azithromycin 500 mg/ Sodium (Chloride) 250 mls @ 250 mls/hr IV Q24H [facility] Last Admin: 08/04/16 15:36 Dose: 250 mls/hr Insulin Aspart (Novolog) 0 unit SUBCUT QIDACANDBED [facility] PRN Reason: Protocol Last Admin: 08/04/16 11:47 Dose: 3 unit Insulin Aspart (Novolog) 10 unit SUBCUT TIDMEALS [facility] Last Admin: 08/04/16 11:41 Dose: 10 unit Insulin Detemir (Levemir) 50 unit SUBCUT BEDTIME [facility] Last Admin: 08/03/16 21:45 Dose: 50 units Isosorbide Mononitrate (Imdur) 30 mg PO DAILY [facility] Last Admin: 08/04/16 08:38 Dose: 30 mg Lactobacillus Rhamnosus (Culturelle) 1 cap PO BID [facility] Last Admin: 08/04/16 08:38 Dose: 1 cap Lisinopril (Prinivil) 20 mg PO DAILY [facility] Last Admin: 08/04/16 08:43 Dose: 20 mg Lorazepam (Ativan) 0.5 - 1 mg IV Q4H PRN PRN Reason: Nausea/Vomiting Last Admin: 08/03/16 12:13 Dose: 1 mg Magnesium Hydroxide (Milk Of Magnesia) 30 ml PO Q12H PRN PRN Reason: Constipation Last Admin: 08/03/16 09:38 Dose: 30 ml Magnesium Oxide (Magnesium Oxide) 400 mg PO BID [facility] Last Admin: 08/04/16 08:43 Dose: 400 mg Metformin HCl (Glucophage) 850 mg PO BIDMEALS [facility] Last Admin: 08/04/16 08:37 Dose: 850 mg Methylprednisolone Sodium Succinate (Solu-Medrol) 40 mg IVPUSH Q8H [facility] Last Admin: 08/04/16 10:40 Dose: 40 mg Metoprolol Succinate (Toprol Xl) 25 mg PO BEDTIME [facility] Last Admin: 08/03/16 21:49 Dose: 25 mg Mometasone Furoate/Formoterol Fumar (Dulera 200-5 Mcg) 2 puff IH BIDRT [facility] Last Admin: 08/04/16 07:45 Dose: 2 puff Morphine Sulfate (Morphine) 30 mg PO Q4H PRN PRN Reason: shortness of breath Last Admin: 08/04/16 12:52 Dose: 30 mg Ondansetron HCl (Zofran Odt) 4 mg PO Q6H PRN PRN Reason: Nausea able to take PO Oxybutynin Chloride (Oxybutynin) 5 mg PO BID [facility] Last Admin: 08/04/16 08:43 Dose: 5 mg Pantoprazole Sodium (Protonix) 40 mg PO ACBREAKFAST [facility] Last Admin: 08/04/16 07:34 Dose: 40 mg Polyethylene Glycol (Miralax) 17 gm PO DAILY PRN PRN Reason: Constipation Potassium Chloride (Klor-Con M20) 20 meq PO BIDMEALS [facility] Last Admin: 08/04/16 08:38 Dose: 20 meq Promethazine HCl (Phenergan) 25 mg PO Q8H PRN PRN Reason: Nausea Last Admin: 08/03/16 00:42 Dose: 25 mg Simvastatin (Zocor) 10 mg PO BEDTIME [facility] Last Admin: 08/03/16 21:50 Dose: 10 mg Sodium Chloride (Saline Flush) 10 ml FLUSH ASDIRECTED PRN PRN Reason: Keep Vein Open Last Admin: 08/01/16 15:38 Dose: 10 ml Sucralfate (Carafate) 1 gm PO QIDACANDBED [facility] Last Admin: 08/04/16 10:57 Dose: 1 gm Trazodone HCl (Trazodone) 50 mg PO BEDTIME [facility] Last Admin: 08/03/16 21:50 Dose: 50 mg Verapamil HCl (Calan Sr) 180 mg PO BIDAC [facility] Last Admin: 08/04/16 07:33 Dose: 180 mg Discontinued Medications Acetaminophen (Tylenol) 650 mg PO Q4H PRN PRN Reason: Pain (Mild 1-3)/fever Last Admin: 07/30/16 13:16 Dose: 650 mg Alteplase, Recombinant (Cathflo Activase) 2 mg IVPUSH ONETIME ONE Stop: 07/31/16 12:31 Last Admin: 07/31/16 12:40 Dose: 2 mg Bumetanide (Bumex) 2 mg IVPUSH ONETIME ONE Stop: 07/29/16 15:16 Last Admin: 07/29/16 15:22 Dose: 2 mg Bumetanide (Bumex) 2 mg IVPUSH BIDDIURETIC [facility] Last Admin: 07/31/16 10:54 Dose: Not Given Heparin Sodium (Porcine) (Heparin Lock Flush 100 Units/Ml Syringe) Confirm Administered Dose 500 units .ROUTE .STK-MED ONE Stop: 07/29/16 15:15 Last Admin: 07/29/16 15:25 Dose: 500 units Heparin Sodium (Porcine) (Heparin Lock Flush 100 Units/Ml Syringe) Confirm Administered Dose 500 units .ROUTE .STK-MED ONE Stop: 07/29/16 22:03 Last Admin: 07/29/16 22:35 Dose: 500 units Heparin Sodium (Porcine) (Heparin Lock Flush 100 Units/Ml Syringe) Confirm Administered Dose 500 units .ROUTE .STK-MED ONE Stop: 07/30/16 00:32 Last Admin: 07/30/16 10:45 Dose: Not Given Sodium Chloride (Normal Saline) 500 mls @ 500 mls/hr IV .BOLUS ONE Stop: 07/30/16 17:44 Last Admin: 07/30/16 17:04 Dose: 500 mls/hr Vancomycin HCl 1.75 gm/ Sodium (Chloride) 250 mls @ 167 mls/hr IV Q12H [facility] Last Admin: 07/30/16 20:11 Dose: Not Given Sodium Chloride (Normal Saline) 500 mls @ 500 mls/hr IV .BOLUS ONE Stop: 07/30/16 19:39 Last Admin: 07/30/16 19:41 Dose: 500 mls/hr Insulin Aspart (Novolog) 15 unit SUBCUT ONETIME ONE Stop: 07/31/16 12:16 Last Admin: 07/31/16 12:27 Dose: 15 units Insulin Aspart (Novolog) 20 unit SUBCUT ONETIME ONE Stop: 08/02/16 21:09 Last Admin: 08/02/16 21:24 Dose: 20 units Insulin Detemir (Levemir) 30 unit SUBCUT BEDTIME [facility] Last Admin: 07/29/16 22:41 Dose: 30 units Insulin Detemir (Levemir) 40 unit SUBCUT BEDTIME [facility] Last Admin: 07/30/16 21:06 Dose: 40 unit Methylprednisolone Sodium Succinate (Solu-Medrol) 62.5 mg IVPUSH Q8H [facility] Last Admin: 08/03/16 09:00 Dose: 62.5 mg Morphine Sulfate (Morphine) 4 - 8 mg IVPUSH Q4H PRN PRN Reason: Pain Last Admin: 08/03/16 00:33 Dose: 4 mg Oseltamivir Phosphate (Tamiflu) 75 mg PO BID [facility] Stop: 08/04/16 07:00 Last Admin: 08/03/16 21:49 Dose: 75 mg Prednisone (Prednisone) 20 mg PO BIDMEALS [facility] Last Admin: 07/30/16 09:14 Dose: 20 mg - Exam Quality Assessment: supplemental oxygen General: alert, oriented, cooperative, no acute distress Neck: supple Lungs: Crackles (A few at the bases). No: Wheezing Cardiovascular: regular rate, regular rhythm Abdomen: soft, no distension Extremities: no cyanosis, edema (Mild pitting lower extremity edema bilaterally) Skin: warm, dry - Problem List & Annotations (1) Influenza A SNOMED Code(s): 777931887 Code(s): J10.1 - FLU DUE TO OTH IDENT INFLUENZA VIRUS W OTH RESP MANIFEST Status: Acute Current Visit: Yes (2) Acute cystitis SNOMED Code(s): 46035806 Code(s): N30.00 - ACUTE CYSTITIS WITHOUT HEMATURIA Status: Acute Current Visit: Yes Qualifiers: Hematuria presence: without hematuria Qualified Code(s): N30.00 - Acute cystitis without hematuria (3) (HFpEF) heart failure with preserved ejection fraction SNOMED Code(s): 40280689 Code(s): I50.30 - UNSPECIFIED DIASTOLIC (CONGESTIVE) HEART FAILURE Status: Chronic Current Visit: No (4) Diabetes mellitus type 2 SNOMED Code(s): 65890436 Code(s): E11.9 - TYPE 2 DIABETES MELLITUS WITHOUT COMPLICATIONS Status: Chronic Priority: High Current Visit: No (5) Rheumatoid arthritis SNOMED Code(s): 39507341 Code(s): M06.9 - RHEUMATOID ARTHRITIS, UNSPECIFIED Status: Chronic Priority: Medium Current Visit: No Qualifiers: Rheumatoid arthritis location: multiple sites Rheumatoid factor presence: unspecified presence Qualified Code(s): M06.9 - Rheumatoid arthritis, unspecified - Problem List Review Problem List Initiated/Reviewed/Updated: Yes - Plan Plan:: Assessment and plan - Acute influenza A. with acute exacerbation of COPD - patient tested positive and Tamiflu has been completed. Oxygenation is excellent but still significant symptoms. -Discontinue Tamiflu -morphine for chest pain -Nebulizers -supplement oxygen as needed Subacute exacerbation of congestive heart failure with preserved ejection fraction - edema is a little better with diuresis. -Continue diuretics with single dose of IV bumetanide in the morning before return to oral medications -Monitor electrolytes -Continue medical management including beta marsha and long-acting nitrate -Morphine as needed for air hunger Acute cystitis - Patient has partially resistant Enterobacter and ceftazidime should be sufficient based on allergies and culture results. -followup Urine culture -Ceftazidime for 5 days (discontinue today) Rheumatoid arthritis - often has difficulty with increasing symptoms around the time of an infection. -Continue Solu-Medrol, decreasing dose today, plan to change to prednisone tomorrow with ongoing increased pain Insulin-dependent diabetes mellitus, suboptimally controlled - sugars are are better controlled today. -Continue increased dose of long-acting insulin -Mealtime insulin -Sliding-scale Maintenance issues - - DVT prophylaxis - enoxaparin - GI prophylaxis - PPI - Nutrition - consistent carbohydrate diet - Dougherty catheter - not indicated Disposition - anticipate discharge to home after the hospital stay Saran Bolivar M.D.
[2016-08-04] MEDS: Metoprolol Succinate 25 MG Tab.ER PO SCH (20:15)
[2016-08-04] MEDS: traZODone 50 MG Tab PO SCH (20:15)
[2016-08-04] MEDS: Simvastatin 20 MG Tab PO SCH (20:15)
[2016-08-04] MEDS: ESCITALOPRAM PO SCH ×2 (20:15)
[2016-08-04] MEDS: LORazepam 2 MG/ML MDV IV PRN (20:28)
[2016-08-04] MEDS: Insulin Detemir 100 Units/ML 3 ML Pen SUBCUT SCH (21:20)
[2016-08-05] MEDS: methylPREDNISolone Sodium Succinate 40 MG/1 ML SDV IVPUSH SCH ×3 (02:49→21:21)
[2016-08-05] MEDS: Albuterol/Ipratropium 3.0-0.5 MG/3 ML Neb Soln NEB SCH ×4 (07:29→21:16)
[2016-08-05] MEDS: Formoterol/Mometasone 200-5 MCG 8.8 GM Inhaler IH SCH ×2 (07:29→21:16)
[2016-08-05] MEDS: Sucralfate 1 GM Tab PO SCH ×4 (07:51→21:17)
[2016-08-05] MEDS: Verapamil 180 MG Tab.ER PO SCH ×2 (07:52→17:17)
[2016-08-05] MEDS: Pantoprazole 40 MG Tab.CR PO SCH (07:53)
[2016-08-05] MEDS: Potassium Chloride 20 MEQ Tab.ER PO SCH ×2 (07:54→17:14)
[2016-08-05] MEDS: Insulin Aspart 100 Units/ML 3 ML Pen SUBCUT SCH ×7 (07:55→21:32)
[2016-08-05] MEDS ORDERED: Bumetanide 2.5 MG/10 ML MDV IVPUSH SCH (08:00)
[2016-08-05] MEDS: Aspirin 81 MG Tab.Chew PO SCH (08:02)
[2016-08-05] MEDS: Lactobacillus Rhamnosus GG (Probiotic) Cap PO SCH ×2 (08:02→21:33)
[2016-08-05] MEDS: Folic Acid 1 MG Tab PO SCH (08:03)
[2016-08-05] MEDS: Ferrous Sulfate 325 MG Tab PO SCH (08:03)
[2016-08-05] MEDS: Enoxaparin 40 MG/0.4 ML Syringe SUBCUT SCH (08:03)
[2016-08-05] MEDS: Gabapentin 300 MG Cap PO SCH ×2 (08:04→21:18)
[2016-08-05] MEDS: Magnesium Oxide 400 MG Tab PO SCH ×2 (08:04→21:18)
[2016-08-05] MEDS: Oxybutynin 5 MG Tab PO SCH ×2 (08:04→21:18)
[2016-08-05] MEDS: Clotrimazole 10 MG Troche PO SCH (08:10)
[2016-08-05] MEDS: Lisinopril 20 MG Tab PO SCH (08:10)
[2016-08-05] MEDS: Isosorbide Mononitrate 30 MG Tab.ER PO SCH (08:37)
[2016-08-05] MEDS: LORazepam 2 MG/ML MDV IV PRN ×2 (11:21→21:31)
--- NOTE | 2016-08-05 13:54 | PCM.PN ---
- General Info Date of Service: 08/05/16 Functional Status: Reports: pain controlled - Review of Systems General: Reports: weakness. Denies: fever, chills Pulmonary: Reports: shortness of breath, wheezing. Denies: pleuritic chest pain , cough, sputum, hemoptysis Cardiovascular: Reports: dyspnea on exertion, edema. Denies: chest pain, palpitations, orthopnea, PND, lightheadedness Gastrointestinal: Reports: No symptoms Systems Review Comment:: Dipti has continued to experience shortness of breath although it's definitely improved from admission, cough has been better and she has remained afebrile. Vital signs have been stable with adequate oxygenation on current level of supplemental oxygen. Continues to experience peripheral edema, refuses to follow a low-sodium diet. - Patient Data Vitals - most recent: Last Vital Signs Temp 97.1 F 08/05/16 11:45 Pulse 70 08/05/16 11:45 Resp 19 08/05/16 11:45 BP 182/89 H 08/05/16 11:45 Pulse Ox 89 L 08/05/16 11:45 Weight - most recent: 300 lb 0.01 oz I&O - last 24 hours: Intake & Output 08/04/16 08/05/16 08/05/16 22:59 06:59 14:59 Output Total 2049 300 1800 Balance -2049 -300 -1800 Frank Results last 24 hrs: Microbiology 07/30/16 16:45 Aerobic Blood Culture - Final Blood - Arm, Right NO GROWTH AFTER 5 DAYS Anaerobic Blood Culture - Final NO GROWTH AFTER 5 DAYS 07/30/16 16:45 Aerobic Blood Culture - Final Blood - Arm, Right NO GROWTH AFTER 5 DAYS Anaerobic Blood Culture - Final NO GROWTH AFTER 5 DAYS Med Orders - Current: Current Medications Acetaminophen (Tylenol Extra Strength) 1,000 mg PO TID PRN PRN Reason: Pain/Fever Last Admin: 08/04/16 12:52 Dose: 1,000 mg Albuterol (Proventil Neb Soln) 2.5 mg NEB Q4H PRN PRN Reason: Shortness Of Breath/wheezing Albuterol/Ipratropium (Duoneb 3.0-0.5 Mg/3 Ml) 3 ml NEB QIDRT [facility] Last Admin: 08/05/16 11:04 Dose: 3 ml Alprazolam (Xanax) 0.25 mg PO TID PRN PRN Reason: Anxiety Last Admin: 08/04/16 10:31 Dose: 0.25 mg Aspirin (Aspirin) 81 mg PO DAILY [facility] Last Admin: 08/05/16 08:02 Dose: 81 mg Azathioprine (Imuran) 150 mg PO DAILY [facility] Last Admin: 08/05/16 08:09 Dose: 150 mg Benzonatate (Tessalon Perles) 100 mg PO TID PRN PRN Reason: Cough Last Admin: 07/30/16 08:59 Dose: 100 mg Bumetanide (Bumex) 2 mg PO BIDDIURETIC [facility] Clotrimazole (Mycelex) 10 mg PO DAILY [facility] Last Admin: 08/05/16 08:10 Dose: 10 mg Enoxaparin Sodium (Lovenox) 40 mg SUBCUT DAILY [facility] Last Admin: 08/05/16 08:03 Dose: 40 mg Escitalopram Oxalate 10 mg/ (Escitalopram Oxalate 20 mg) 30 mg PO BEDTIME [facility] Last Admin: 08/04/16 20:15 Dose: 30 mg Ferrous Sulfate (Ferrous Sulfate) 325 mg PO DAILY [facility] Last Admin: 08/05/16 08:03 Dose: 325 mg Folic Acid (Folic Acid) 1 mg PO DAILY [facility] Last Admin: 08/05/16 08:03 Dose: 1 mg Gabapentin (Neurontin) 300 mg PO BID [facility] Last Admin: 08/05/16 08:04 Dose: 300 mg Heparin Sodium (Porcine) (Heparin Lock Flush 100 Units/Ml Syringe) 500 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 Last Admin: 08/01/16 15:38 Dose: 500 units Insulin Aspart (Novolog) 0 unit SUBCUT QIDACANDBED [facility] PRN Reason: Protocol Last Admin: 08/05/16 12:39 Dose: 9 unit Insulin Aspart (Novolog) 10 unit SUBCUT TIDMEALS [facility] Last Admin: 08/05/16 12:40 Dose: 10 unit Insulin Detemir (Levemir) 50 unit SUBCUT BEDTIME [facility] Last Admin: 08/04/16 21:20 Dose: 50 units Isosorbide Mononitrate (Imdur) 30 mg PO DAILY [facility] Last Admin: 08/05/16 08:37 Dose: 30 mg Lactobacillus Rhamnosus (Culturelle) 1 cap PO BID [facility] Last Admin: 08/05/16 08:02 Dose: 1 cap Lisinopril (Prinivil) 20 mg PO DAILY [facility] Last Admin: 08/05/16 08:10 Dose: 20 mg Lorazepam (Ativan) 0.5 - 1 mg IV Q4H PRN PRN Reason: Nausea/Vomiting Last Admin: 08/05/16 11:21 Dose: 1 mg Magnesium Hydroxide (Milk Of Magnesia) 30 ml PO Q12H PRN PRN Reason: Constipation Last Admin: 08/03/16 09:38 Dose: 30 ml Magnesium Oxide (Magnesium Oxide) 400 mg PO BID [facility] Last Admin: 08/05/16 08:04 Dose: 400 mg Metformin HCl (Glucophage) 850 mg PO BIDMEALS [facility] Last Admin: 08/05/16 07:54 Dose: 850 mg Metoprolol Succinate (Toprol Xl) 25 mg PO BEDTIME [facility] Last Admin: 08/04/16 20:15 Dose: 25 mg Mometasone Furoate/Formoterol Fumar (Dulera 200-5 Mcg) 2 puff IH BIDRT [facility] Last Admin: 08/05/16 07:29 Dose: 2 puff Morphine Sulfate (Morphine) 30 mg PO Q4H PRN PRN Reason: shortness of breath Last Admin: 08/05/16 11:20 Dose: 30 mg Ondansetron HCl (Zofran Odt) 4 mg PO Q6H PRN PRN Reason: Nausea able to take PO Oxybutynin Chloride (Oxybutynin) 5 mg PO BID [facility] Last Admin: 08/05/16 08:04 Dose: 5 mg Pantoprazole Sodium (Protonix) 40 mg PO ACBREAKFAST [facility] Last Admin: 08/05/16 07:53 Dose: 40 mg Polyethylene Glycol (Miralax) 17 gm PO DAILY PRN PRN Reason: Constipation Potassium Chloride (Klor-Con M20) 20 meq PO BIDMEALS [facility] Last Admin: 08/05/16 07:54 Dose: 20 meq Promethazine HCl (Phenergan) 25 mg PO Q8H PRN PRN Reason: Nausea Last Admin: 08/03/16 00:42 Dose: 25 mg Simvastatin (Zocor) 10 mg PO BEDTIME [facility] Last Admin: 08/04/16 20:15 Dose: 10 mg Sodium Chloride (Saline Flush) 10 ml FLUSH ASDIRECTED PRN PRN Reason: Keep Vein Open Last Admin: 08/01/16 15:38 Dose: 10 ml Sucralfate (Carafate) 1 gm PO QIDACANDBED [facility] Last Admin: 08/05/16 10:57 Dose: 1 gm Trazodone HCl (Trazodone) 50 mg PO BEDTIME [facility] Last Admin: 08/04/16 20:15 Dose: 50 mg Verapamil HCl (Calan Sr) 180 mg PO BIDAC [facility] Last Admin: 08/05/16 07:52 Dose: 180 mg Discontinued Medications Acetaminophen (Tylenol) 650 mg PO Q4H PRN PRN Reason: Pain (Mild 1-3)/fever Last Admin: 07/30/16 13:16 Dose: 650 mg Alteplase, Recombinant (Cathflo Activase) 2 mg IVPUSH ONETIME ONE Stop: 07/31/16 12:31 Last Admin: 07/31/16 12:40 Dose: 2 mg Bumetanide (Bumex) 2 mg IVPUSH ONETIME ONE Stop: 07/29/16 15:16 Last Admin: 07/29/16 15:22 Dose: 2 mg Bumetanide (Bumex) 2 mg IVPUSH BIDDIURETIC [facility] Last Admin: 07/31/16 10:54 Dose: Not Given Bumetanide (Bumex) 2 mg PO BIDDIURETIC [facility] Last Admin: 08/04/16 13:22 Dose: 2 mg Bumetanide (Bumex) 2 mg IVPUSH DAILY [facility] Stop: 08/05/16 08:01 Last Admin: 08/05/16 08:37 Dose: 2 mg Heparin Sodium (Porcine) (Heparin Lock Flush 100 Units/Ml Syringe) Confirm Administered Dose 500 units .ROUTE .STK-MED ONE Stop: 07/29/16 15:15 Last Admin: 07/29/16 15:25 Dose: 500 units Heparin Sodium (Porcine) (Heparin Lock Flush 100 Units/Ml Syringe) Confirm Administered Dose 500 units .ROUTE .STK-MED ONE Stop: 07/29/16 22:03 Last Admin: 07/29/16 22:35 Dose: 500 units Heparin Sodium (Porcine) (Heparin Lock Flush 100 Units/Ml Syringe) Confirm Administered Dose 500 units .ROUTE .STK-MED ONE Stop: 07/30/16 00:32 Last Admin: 07/30/16 10:45 Dose: Not Given Ceftazidime 1 gm/ Sodium (Chloride) 50 mls @ 100 mls/hr IV Q8H [facility] Last Admin: 08/04/16 17:32 Dose: 100 mls/hr Azithromycin 500 mg/ Sodium (Chloride) 250 mls @ 250 mls/hr IV Q24H [facility] Last Admin: 08/04/16 15:36 Dose: 250 mls/hr Sodium Chloride (Normal Saline) 500 mls @ 500 mls/hr IV .BOLUS ONE Stop: 07/30/16 17:44 Last Admin: 07/30/16 17:04 Dose: 500 mls/hr Vancomycin HCl 1.75 gm/ Sodium (Chloride) 250 mls @ 167 mls/hr IV Q12H [facility] Last Admin: 07/30/16 20:11 Dose: Not Given Sodium Chloride (Normal Saline) 500 mls @ 500 mls/hr IV .BOLUS ONE Stop: 07/30/16 19:39 Last Admin: 07/30/16 19:41 Dose: 500 mls/hr Insulin Aspart (Novolog) 15 unit SUBCUT ONETIME ONE Stop: 07/31/16 12:16 Last Admin: 07/31/16 12:27 Dose: 15 units Insulin Aspart (Novolog) 20 unit SUBCUT ONETIME ONE Stop: 08/02/16 21:09 Last Admin: 08/02/16 21:24 Dose: 20 units Insulin Detemir (Levemir) 30 unit SUBCUT BEDTIME [facility] Last Admin: 07/29/16 22:41 Dose: 30 units Insulin Detemir (Levemir) 40 unit SUBCUT BEDTIME [facility] Last Admin: 07/30/16 21:06 Dose: 40 unit Methylprednisolone Sodium Succinate (Solu-Medrol) 62.5 mg IVPUSH Q8H [facility] Last Admin: 08/03/16 09:00 Dose: 62.5 mg Methylprednisolone Sodium Succinate (Solu-Medrol) 40 mg IVPUSH Q8H [facility] Last Admin: 08/05/16 10:44 Dose: 40 mg Morphine Sulfate (Morphine) 4 - 8 mg IVPUSH Q4H PRN PRN Reason: Pain Last Admin: 08/03/16 00:33 Dose: 4 mg Oseltamivir Phosphate (Tamiflu) 75 mg PO BID [facility] Stop: 08/04/16 07:00 Last Admin: 08/03/16 21:49 Dose: 75 mg Prednisone (Prednisone) 20 mg PO BIDMEALS [facility] Last Admin: 07/30/16 09:14 Dose: 20 mg - Exam Quality Assessment: supplemental oxygen, DVT prophylaxis General: alert, oriented, cooperative, mild distress Lungs: Decreased breath sounds, Wheezing. No: Crackles, Rales, Rhonchi, Rub, Stridor Cardiovascular: regular rate, regular rhythm Abdomen: bowel sounds present, soft, no tenderness, no distension Extremities: edema Skin: warm, dry, intact - Problem List Review Problem List Initiated/Reviewed/Updated: Yes - My Orders Last 24 Hours: My Active Orders 08/05/16 14:00 methylPREDNISolone Sod Succ [Solu-MEDROL] 40 mg IVPUSH Q12H 08/06/16 05:00 BASIC METABOLIC PANEL,BMP [CHEM] Timed CBC WITH AUTO DIFF [HEME] Timed MAGNESIUM [CHEM] Timed - Plan Plan:: Assessment and plan - Acute influenza A. with acute exacerbation of COPD - patient tested positive and Tamiflu has been completed. Oxygenation is excellent but still significant symptoms. -Discontinue Tamiflu -morphine for chest pain -Nebulizers -supplement oxygen as needed Subacute exacerbation of congestive heart failure with preserved ejection fraction - edema is a little better with diuresis. -Continue diuretics with single dose of IV bumetanide in the morning before return to oral medications -Monitor electrolytes -Continue medical management including beta marsha and long-acting nitrate -Morphine as needed for air hunger Acute cystitis - Patient has partially resistant Enterobacter and ceftazidime should be sufficient based on allergies and culture results. -followup Urine culture -Ceftazidime for 5 days (discontinue today) Rheumatoid arthritis - often has difficulty with increasing symptoms around the time of an infection. -Continue Solu-Medrol, decreasing dose today Insulin-dependent diabetes mellitus, suboptimally controlled - sugars are are better controlled today. -Continue increased dose of long-acting insulin -Mealtime insulin -Sliding-scale Maintenance issues - - DVT prophylaxis - enoxaparin - GI prophylaxis - PPI - Nutrition - consistent carbohydrate diet - Dougherty catheter - not indicated Disposition - anticipate discharge to home after the hospital stay
[2016-08-05] MEDS: Bumetanide 1 MG Tab PO SCH (15:19)
[2016-08-05] MEDS: ESCITALOPRAM PO SCH ×2 (21:17)
[2016-08-05] MEDS: Metoprolol Succinate 25 MG Tab.ER PO SCH (21:19)
[2016-08-05] MEDS: Simvastatin 20 MG Tab PO SCH (21:21)
[2016-08-05] MEDS: traZODone 50 MG Tab PO SCH (21:21)
[2016-08-05] MEDS: Insulin Detemir 100 Units/ML 3 ML Pen SUBCUT SCH (21:32)
[2016-08-06] MEDS: Albuterol/Ipratropium 3.0-0.5 MG/3 ML Neb Soln NEB SCH ×4 (07:40→21:13)
[2016-08-06] MEDS: Formoterol/Mometasone 200-5 MCG 8.8 GM Inhaler IH SCH ×2 (07:41→21:14)
[2016-08-06] MEDS: Pantoprazole 40 MG Tab.CR PO SCH (07:48)
[2016-08-06] MEDS: Verapamil 180 MG Tab.ER PO SCH ×2 (07:48→16:50)
[2016-08-06] MEDS: Bumetanide 1 MG Tab PO SCH ×2 (07:48→13:42)
[2016-08-06] MEDS: Insulin Aspart 100 Units/ML 3 ML Pen SUBCUT SCH ×7 (07:49→21:13)
[2016-08-06] MEDS: Potassium Chloride 20 MEQ Tab.ER PO SCH ×2 (07:49→18:29)
[2016-08-06] MEDS: Sucralfate 1 GM Tab PO SCH ×4 (07:49→21:13)
[2016-08-06] MEDS: Aspirin 81 MG Tab.Chew PO SCH (09:02)
[2016-08-06] MEDS: Isosorbide Mononitrate 30 MG Tab.ER PO SCH (09:03)
[2016-08-06] MEDS: Lactobacillus Rhamnosus GG (Probiotic) Cap PO SCH ×2 (09:03→21:14)
[2016-08-06] MEDS: Folic Acid 1 MG Tab PO SCH (09:03)
[2016-08-06] MEDS: Ferrous Sulfate 325 MG Tab PO SCH (09:03)
[2016-08-06] MEDS: Enoxaparin 40 MG/0.4 ML Syringe SUBCUT SCH (09:04)
[2016-08-06] MEDS: Magnesium Oxide 400 MG Tab PO SCH ×2 (09:04→21:16)
[2016-08-06] MEDS: Lisinopril 20 MG Tab PO SCH (09:05)
[2016-08-06] MEDS: Gabapentin 300 MG Cap PO SCH ×2 (09:05→21:16)
[2016-08-06] MEDS: Oxybutynin 5 MG Tab PO SCH ×2 (09:05→21:17)
[2016-08-06] MEDS: Clotrimazole 10 MG Troche PO SCH (09:09)
[2016-08-06] MEDS: methylPREDNISolone Sodium Succinate 40 MG/1 ML SDV IVPUSH SCH (09:45)
[2016-08-06] MEDS: LORazepam 2 MG/ML MDV IV PRN ×2 (12:35→21:30)
--- NOTE | 2016-08-06 15:38 | PCM.PN ---
- General Info Date of Service: 08/06/16 Functional Status: Reports: pain controlled - Review of Systems General: Reports: weakness. Denies: fever, chills Pulmonary: Reports: shortness of breath, wheezing. Denies: pleuritic chest pain , cough, sputum, hemoptysis Cardiovascular: Reports: no symptoms Gastrointestinal: Reports: No symptoms Systems Review Comment:: Dipti continues to experience some shortness of breath, wheezing, and cough. Also has had some ongoing fluid overload which she is not had in the recent past , does carry a diagnosis of diastolic congestive heart failure. Vital signs have been stable and she has remained afebrile. - Patient Data Vitals - most recent: Last Vital Signs Temp 99.3 F 08/06/16 14:37 Pulse 76 08/06/16 14:46 Resp 18 08/06/16 14:37 BP 141/78 H 08/06/16 14:37 Pulse Ox 95 08/06/16 14:46 Weight - most recent: 300 lb 0.01 oz I&O - last 24 hours: Intake & Output 08/06/16 08/06/16 08/06/16 06:59 14:59 22:59 Intake Total 240 560 Output Total 500 675 Balance -260 -115 Lab Results last 24 hrs: Laboratory Results - last 24 hr 08/06/16 08/06/16 Range/Units 05:00 05:00 WBC 9.5 (4.5-11.0) K/uL RBC 4.29 (3.30-5.50) M/uL Hgb 10.9 L (12.0-15.0) g/dL Hct 38.3 (36.0-48.0) % MCV 89 (80-98) fL MCH 25 L (27-31) pg MCHC 29 L (32-36) % Plt Count 226 (150-400) K/uL Neut % (Auto) 91 H (36-66) % Lymph % (Auto) 4 L (24-44) % [place] % (Auto) 5 (2-6) % Eos % (Auto) 0 L (2-4) % Baso % (Auto) 0 (0-1) % Sodium 141 (140-148) mmol/L Potassium 4.6 (3.6-5.2) mmol/L Chloride 99 L (100-108) mmol/L Carbon Dioxide 40 H (21-32) mmol/L Anion Gap 6.6 (5.0-14.0) mmol/L BUN 22 H (7-18) mg/dL Creatinine 0.7 (0.6-1.0) mg/dL Est Cr Clr Drug Dosing 78.01 mL/min Estimated GFR (MDRD) > 60 (>60) Glucose 384 H (74-106) mg/dL Calcium 8.4 L (8.5-10.1) mg/dL Magnesium 1.9 (1.8-2.4) mg/dL Med Orders - Current: Current Medications Acetaminophen (Tylenol Extra Strength) 1,000 mg PO TID PRN PRN Reason: Pain/Fever Last Admin: 08/04/16 12:52 Dose: 1,000 mg Albuterol (Proventil Neb Soln) 2.5 mg NEB Q4H PRN PRN Reason: Shortness Of Breath/wheezing Albuterol/Ipratropium (Duoneb 3.0-0.5 Mg/3 Ml) 3 ml NEB QIDRT [facility] Last Admin: 08/06/16 14:45 Dose: 3 ml Alprazolam (Xanax) 0.25 mg PO TID PRN PRN Reason: Anxiety Last Admin: 08/04/16 10:31 Dose: 0.25 mg Aspirin (Aspirin) 81 mg PO DAILY [facility] Last Admin: 08/06/16 09:02 Dose: 81 mg Azathioprine (Imuran) 150 mg PO DAILY [facility] Last Admin: 08/06/16 09:04 Dose: 150 mg Benzonatate (Tessalon Perles) 100 mg PO TID PRN PRN Reason: Cough Last Admin: 07/30/16 08:59 Dose: 100 mg Bumetanide (Bumex) 2 mg IVPUSH BID [facility] Clotrimazole (Mycelex) 10 mg PO DAILY [facility] Last Admin: 08/06/16 09:09 Dose: 10 mg Enoxaparin Sodium (Lovenox) 40 mg SUBCUT DAILY [facility] Last Admin: 08/06/16 09:04 Dose: 40 mg Escitalopram Oxalate 10 mg/ (Escitalopram Oxalate 20 mg) 30 mg PO BEDTIME [facility] Last Admin: 08/05/16 21:17 Dose: 30 mg Ferrous Sulfate (Ferrous Sulfate) 325 mg PO DAILY [facility] Last Admin: 08/06/16 09:03 Dose: 325 mg Folic Acid (Folic Acid) 1 mg PO DAILY [facility] Last Admin: 08/06/16 09:03 Dose: 1 mg Gabapentin (Neurontin) 300 mg PO BID [facility] Last Admin: 08/06/16 09:05 Dose: 300 mg Heparin Sodium (Porcine) (Heparin Lock Flush 100 Units/Ml Syringe) 500 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 Last Admin: 08/01/16 15:38 Dose: 500 units Insulin Aspart (Novolog) 0 unit SUBCUT QIDACANDBED [facility] PRN Reason: Protocol Last Admin: 08/06/16 12:19 Dose: 6 unit Insulin Aspart (Novolog) 10 unit SUBCUT TIDMEALS [facility] Last Admin: 08/06/16 12:19 Dose: 10 unit Insulin Detemir (Levemir) 50 unit SUBCUT BEDTIME [facility] Last Admin: 08/05/16 21:32 Dose: 50 units Isosorbide Mononitrate (Imdur) 30 mg PO DAILY [facility] Last Admin: 08/06/16 09:03 Dose: 30 mg Lactobacillus Rhamnosus (Culturelle) 1 cap PO BID [facility] Last Admin: 08/06/16 09:03 Dose: 1 cap Lisinopril (Prinivil) 20 mg PO DAILY [facility] Last Admin: 08/06/16 09:05 Dose: 20 mg Lorazepam (Ativan) 0.5 - 1 mg IV Q4H PRN PRN Reason: Nausea/Vomiting Last Admin: 08/06/16 12:35 Dose: 1 mg Magnesium Hydroxide (Milk Of Magnesia) 30 ml PO Q12H PRN PRN Reason: Constipation Last Admin: 08/03/16 09:38 Dose: 30 ml Magnesium Oxide (Magnesium Oxide) 400 mg PO BID [facility] Last Admin: 08/06/16 09:04 Dose: 400 mg Metformin HCl (Glucophage) 850 mg PO BIDMEALS [facility] Last Admin: 08/06/16 07:48 Dose: 850 mg Metoprolol Succinate (Toprol Xl) 25 mg PO BEDTIME [facility] Last Admin: 08/05/16 21:19 Dose: 25 mg Mometasone Furoate/Formoterol Fumar (Dulera 200-5 Mcg) 2 puff IH BIDRT [facility] Last Admin: 08/06/16 07:41 Dose: 2 puff Morphine Sulfate (Morphine) 30 mg PO Q4H PRN PRN Reason: shortness of breath Last Admin: 08/05/16 21:16 Dose: 30 mg Ondansetron HCl (Zofran Odt) 4 mg PO Q6H PRN PRN Reason: Nausea able to take PO Oxybutynin Chloride (Oxybutynin) 5 mg PO BID [facility] Last Admin: 08/06/16 09:05 Dose: 5 mg Pantoprazole Sodium (Protonix) 40 mg PO ACBREAKFAST [facility] Last Admin: 08/06/16 07:48 Dose: 40 mg Polyethylene Glycol (Miralax) 17 gm PO DAILY PRN PRN Reason: Constipation Potassium Chloride (Klor-Con M20) 20 meq PO BIDMEALS [facility] Last Admin: 08/06/16 07:49 Dose: 20 meq Prednisone (Prednisone) 40 mg PO WITHBREAKFAST [facility] Promethazine HCl (Phenergan) 25 mg PO Q8H PRN PRN Reason: Nausea Last Admin: 08/03/16 00:42 Dose: 25 mg Simvastatin (Zocor) 10 mg PO BEDTIME [facility] Last Admin: 08/05/16 21:21 Dose: 10 mg Sodium Chloride (Saline Flush) 10 ml FLUSH ASDIRECTED PRN PRN Reason: Keep Vein Open Last Admin: 08/01/16 15:38 Dose: 10 ml Sucralfate (Carafate) 1 gm PO QIDACANDBED [facility] Last Admin: 08/06/16 11:27 Dose: 1 gm Trazodone HCl (Trazodone) 50 mg PO BEDTIME [facility] Last Admin: 08/05/16 21:21 Dose: 50 mg Verapamil HCl (Calan Sr) 180 mg PO BIDAC [facility] Last Admin: 08/06/16 07:48 Dose: 180 mg Discontinued Medications Acetaminophen (Tylenol) 650 mg PO Q4H PRN PRN Reason: Pain (Mild 1-3)/fever Last Admin: 07/30/16 13:16 Dose: 650 mg Alteplase, Recombinant (Cathflo Activase) 2 mg IVPUSH ONETIME ONE Stop: 07/31/16 12:31 Last Admin: 07/31/16 12:40 Dose: 2 mg Bumetanide (Bumex) 2 mg IVPUSH ONETIME ONE Stop: 07/29/16 15:16 Last Admin: 07/29/16 15:22 Dose: 2 mg Bumetanide (Bumex) 2 mg IVPUSH BIDDIURETIC [facility] Last Admin: 07/31/16 10:54 Dose: Not Given Bumetanide (Bumex) 2 mg PO BIDDIURETIC [facility] Last Admin: 08/04/16 13:22 Dose: 2 mg Bumetanide (Bumex) 2 mg IVPUSH DAILY [facility] Stop: 08/05/16 08:01 Last Admin: 08/05/16 08:37 Dose: 2 mg Bumetanide (Bumex) 2 mg PO BIDDIURETIC [facility] Last Admin: 08/06/16 13:42 Dose: 2 mg Heparin Sodium (Porcine) (Heparin Lock Flush 100 Units/Ml Syringe) Confirm Administered Dose 500 units .ROUTE .STK-MED ONE Stop: 07/29/16 15:15 Last Admin: 07/29/16 15:25 Dose: 500 units Heparin Sodium (Porcine) (Heparin Lock Flush 100 Units/Ml Syringe) Confirm Administered Dose 500 units .ROUTE .STK-MED ONE Stop: 07/29/16 22:03 Last Admin: 07/29/16 22:35 Dose: 500 units Heparin Sodium (Porcine) (Heparin Lock Flush 100 Units/Ml Syringe) Confirm Administered Dose 500 units .ROUTE .STK-MED ONE Stop: 07/30/16 00:32 Last Admin: 07/30/16 10:45 Dose: Not Given Ceftazidime 1 gm/ Sodium (Chloride) 50 mls @ 100 mls/hr IV Q8H [facility] Last Admin: 08/04/16 17:32 Dose: 100 mls/hr Azithromycin 500 mg/ Sodium (Chloride) 250 mls @ 250 mls/hr IV Q24H [facility] Last Admin: 08/04/16 15:36 Dose: 250 mls/hr Sodium Chloride (Normal Saline) 500 mls @ 500 mls/hr IV .BOLUS ONE Stop: 07/30/16 17:44 Last Admin: 07/30/16 17:04 Dose: 500 mls/hr Vancomycin HCl 1.75 gm/ Sodium (Chloride) 250 mls @ 167 mls/hr IV Q12H [facility] Last Admin: 07/30/16 20:11 Dose: Not Given Sodium Chloride (Normal Saline) 500 mls @ 500 mls/hr IV .BOLUS ONE Stop: 07/30/16 19:39 Last Admin: 07/30/16 19:41 Dose: 500 mls/hr Insulin Aspart (Novolog) 15 unit SUBCUT ONETIME ONE Stop: 07/31/16 12:16 Last Admin: 07/31/16 12:27 Dose: 15 units Insulin Aspart (Novolog) 20 unit SUBCUT ONETIME ONE Stop: 08/02/16 21:09 Last Admin: 08/02/16 21:24 Dose: 20 units Insulin Detemir (Levemir) 30 unit SUBCUT BEDTIME [facility] Last Admin: 07/29/16 22:41 Dose: 30 units Insulin Detemir (Levemir) 40 unit SUBCUT BEDTIME [facility] Last Admin: 07/30/16 21:06 Dose: 40 unit Methylprednisolone Sodium Succinate (Solu-Medrol) 62.5 mg IVPUSH Q8H [facility] Last Admin: 08/03/16 09:00 Dose: 62.5 mg Methylprednisolone Sodium Succinate (Solu-Medrol) 40 mg IVPUSH Q8H [facility] Last Admin: 08/05/16 10:44 Dose: 40 mg Methylprednisolone Sodium Succinate (Solu-Medrol) 40 mg IVPUSH Q12H [facility] Last Admin: 08/06/16 09:45 Dose: 40 mg Morphine Sulfate (Morphine) 4 - 8 mg IVPUSH Q4H PRN PRN Reason: Pain Last Admin: 08/03/16 00:33 Dose: 4 mg Oseltamivir Phosphate (Tamiflu) 75 mg PO BID [facility] Stop: 08/04/16 07:00 Last Admin: 08/03/16 21:49 Dose: 75 mg Prednisone (Prednisone) 20 mg PO BIDMEALS [facility] Last Admin: 07/30/16 09:14 Dose: 20 mg - Exam Quality Assessment: DVT prophylaxis General: alert, oriented, cooperative, no acute distress Lungs: Decreased breath sounds, Wheezing. No: Crackles, Rales, Rhonchi, Rub, Stridor Cardiovascular: regular rate, regular rhythm, no murmurs Abdomen: bowel sounds present, soft, no tenderness, no distension Extremities: edema Skin: warm, dry, intact - Problem List Review Problem List Initiated/Reviewed/Updated: Yes - My Orders Last 24 Hours: My Active Orders 08/06/16 21:00 Bumetanide [Bumex] 2 mg IVPUSH BID 08/07/16 08:00 predniSONE 40 mg PO WITHBREAKFAST - Plan Plan:: Assessment and plan - Acute influenza A. with acute exacerbation of COPD - patient tested positive and Tamiflu has been completed. Oxygenation is excellent symptoms slowly improving. -morphine for chest pain -Nebulizers -supplement oxygen as needed Subacute exacerbation of congestive heart failure with preserved ejection fraction - edema is a little better with diuresis. -Bumex 4 mg IV twice daily -Monitor electrolytes -Continue medical management including beta marsha and long-acting nitrate -Morphine as needed for air hunger Acute cystitis -resolved after antibiotic therapy Rheumatoid arthritis - often has difficulty with increasing symptoms around the time of an infection. -Discontinue Solu-Medrol -Prednisone 40 mg by mouth daily Insulin-dependent diabetes mellitus, suboptimally controlled - sugars are are better controlled today. -Continue increased dose of long-acting insulin -Mealtime insulin -Sliding-scale Maintenance issues - - DVT prophylaxis - enoxaparin - GI prophylaxis - PPI - Nutrition - consistent carbohydrate diet - Dougherty catheter - not indicated Disposition - anticipate discharge to home after the hospital stay
[2016-08-06] MEDS ORDERED: Insulin Aspart 100 Units/ML 3 ML Pen ONE (16:54)
[2016-08-06] MEDS: Bumetanide 2.5 MG/10 ML MDV IVPUSH SCH (19:59)
[2016-08-06] MEDS: Insulin Detemir 100 Units/ML 3 ML Pen SUBCUT SCH (21:15)
[2016-08-06] MEDS: ESCITALOPRAM PO SCH ×2 (21:16)
[2016-08-06] MEDS: Metoprolol Succinate 25 MG Tab.ER PO SCH (21:18)
[2016-08-06] MEDS: Simvastatin 20 MG Tab PO SCH (21:19)
[2016-08-06] MEDS: traZODone 50 MG Tab PO SCH (21:19)
[2016-08-07] MEDS: Albuterol/Ipratropium 3.0-0.5 MG/3 ML Neb Soln NEB SCH ×4 (07:15→21:50)
[2016-08-07] MEDS: Sucralfate 1 GM Tab PO SCH ×4 (07:59→20:04)
[2016-08-07] MEDS: Formoterol/Mometasone 200-5 MCG 8.8 GM Inhaler IH SCH ×2 (07:59→20:05)
[2016-08-07] MEDS: Pantoprazole 40 MG Tab.CR PO SCH (08:00)
[2016-08-07] MEDS: Verapamil 180 MG Tab.ER PO SCH ×2 (08:00→16:05)
[2016-08-07] MEDS: Potassium Chloride 20 MEQ Tab.ER PO SCH ×2 (08:09→16:03)
[2016-08-07] MEDS: Insulin Aspart 100 Units/ML 3 ML Pen SUBCUT SCH ×7 (08:13→21:50)
[2016-08-07] MEDS: predniSONE 20 MG Tab PO SCH (08:48)
[2016-08-07] MEDS: Aspirin 81 MG Tab.Chew PO SCH (08:49)
[2016-08-07] MEDS: Lactobacillus Rhamnosus GG (Probiotic) Cap PO SCH ×2 (08:52→20:06)
[2016-08-07] MEDS: Folic Acid 1 MG Tab PO SCH (08:52)
[2016-08-07] MEDS: Ferrous Sulfate 325 MG Tab PO SCH (08:52)
[2016-08-07] MEDS: Magnesium Oxide 400 MG Tab PO SCH ×2 (08:55→20:08)
[2016-08-07] MEDS: Lisinopril 20 MG Tab PO SCH (08:56)
[2016-08-07] MEDS: Oxybutynin 5 MG Tab PO SCH ×2 (08:56→20:07)
[2016-08-07] MEDS: Gabapentin 300 MG Cap PO SCH ×2 (08:56→20:07)
[2016-08-07] MEDS: Clotrimazole 10 MG Troche PO SCH (08:56)
[2016-08-07] MEDS: Isosorbide Mononitrate 30 MG Tab.ER PO SCH (09:02)
[2016-08-07] MEDS: Enoxaparin 40 MG/0.4 ML Syringe SUBCUT SCH (09:05)
[2016-08-07] MEDS: Bumetanide 2.5 MG/10 ML MDV IVPUSH SCH ×3 (09:08→20:05)
--- NOTE | 2016-08-07 12:12 | PCM.PN ---
- General Info Date of Service: 08/07/16 Functional Status: Reports: pain controlled, tolerating diet, urinating - Review of Systems General: Reports: weakness. Denies: fever, chills Pulmonary: Reports: shortness of breath. Denies: pleuritic chest pain, cough, sputum, hemoptysis, wheezing Cardiovascular: Reports: dyspnea on exertion, edema. Denies: chest pain, palpitations, orthopnea, PND, lightheadedness Gastrointestinal: Reports: No symptoms Systems Review Comment:: Dipti has been fairly stable over the past 24 hours, good diuresis last night with use of IV Bumex. Respiratory status continues to slowly improve although she's not yet back to baseline. Vital signs have been stable and she has remained afebrile. - Patient Data Vitals - most recent: Last Vital Signs Temp 98.2 F 08/07/16 11:00 Pulse 77 08/07/16 11:00 Resp 22 H 08/07/16 11:00 BP 121/58 L 08/07/16 11:00 Pulse Ox 88 L 08/07/16 11:00 Weight - most recent: 300 lb 0.01 oz I&O - last 24 hours: Intake & Output 08/06/16 08/07/16 08/07/16 22:59 06:59 14:59 Intake Total 570 360 Output Total 1400 500 Balance -830 -140 Med Orders - Current: Current Medications Acetaminophen (Tylenol Extra Strength) 1,000 mg PO TID PRN PRN Reason: Pain/Fever Last Admin: 08/04/16 12:52 Dose: 1,000 mg Albuterol (Proventil Neb Soln) 2.5 mg NEB Q4H PRN PRN Reason: Shortness Of Breath/wheezing Albuterol/Ipratropium (Duoneb 3.0-0.5 Mg/3 Ml) 3 ml NEB QIDRT [facility] Last Admin: 08/07/16 10:45 Dose: 3 ml Alprazolam (Xanax) 0.25 mg PO TID PRN PRN Reason: Anxiety Last Admin: 08/04/16 10:31 Dose: 0.25 mg Aspirin (Aspirin) 81 mg PO DAILY [facility] Last Admin: 08/07/16 08:49 Dose: 81 mg Azathioprine (Imuran) 150 mg PO DAILY [facility] Last Admin: 08/07/16 09:04 Dose: 150 mg Benzonatate (Tessalon Perles) 100 mg PO TID PRN PRN Reason: Cough Last Admin: 07/30/16 08:59 Dose: 100 mg Bumetanide (Bumex) 2 mg IVPUSH BID [facility] Last Admin: 08/07/16 09:08 Dose: 2 mg Clotrimazole (Mycelex) 10 mg PO DAILY [facility] Last Admin: 08/07/16 08:56 Dose: 10 mg Enoxaparin Sodium (Lovenox) 40 mg SUBCUT DAILY [facility] Last Admin: 08/07/16 09:05 Dose: 40 mg Escitalopram Oxalate 10 mg/ (Escitalopram Oxalate 20 mg) 30 mg PO BEDTIME [facility] Last Admin: 08/06/16 21:16 Dose: 30 mg Ferrous Sulfate (Ferrous Sulfate) 325 mg PO DAILY [facility] Last Admin: 08/07/16 08:52 Dose: 325 mg Folic Acid (Folic Acid) 1 mg PO DAILY [facility] Last Admin: 08/07/16 08:52 Dose: 1 mg Gabapentin (Neurontin) 300 mg PO BID [facility] Last Admin: 08/07/16 08:56 Dose: 300 mg Heparin Sodium (Porcine) (Heparin Lock Flush 100 Units/Ml Syringe) 500 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 Last Admin: 08/01/16 15:38 Dose: 500 units Insulin Aspart (Novolog) 0 unit SUBCUT QIDACANDBED [facility] PRN Reason: Protocol Last Admin: 08/07/16 11:28 Dose: 3 unit Insulin Aspart (Novolog) 10 unit SUBCUT TIDMEALS [facility] Last Admin: 08/07/16 11:27 Dose: 10 unit Insulin Detemir (Levemir) 50 unit SUBCUT BEDTIME [facility] Last Admin: 08/06/16 21:15 Dose: 50 units Isosorbide Mononitrate (Imdur) 30 mg PO DAILY [facility] Last Admin: 08/07/16 09:02 Dose: 30 mg Lactobacillus Rhamnosus (Culturelle) 1 cap PO BID [facility] Last Admin: 08/07/16 08:52 Dose: 1 cap Lisinopril (Prinivil) 20 mg PO DAILY [facility] Last Admin: 08/07/16 08:56 Dose: 20 mg Lorazepam (Ativan) 0.5 - 1 mg IV Q4H PRN PRN Reason: Nausea/Vomiting Last Admin: 08/06/16 21:30 Dose: 1 mg Magnesium Hydroxide (Milk Of Magnesia) 30 ml PO Q12H PRN PRN Reason: Constipation Last Admin: 08/03/16 09:38 Dose: 30 ml Magnesium Oxide (Magnesium Oxide) 400 mg PO BID [facility] Last Admin: 08/07/16 08:55 Dose: 400 mg Metformin HCl (Glucophage) 850 mg PO BIDMEALS [facility] Last Admin: 08/07/16 08:09 Dose: 850 mg Metoprolol Succinate (Toprol Xl) 25 mg PO BEDTIME [facility] Last Admin: 08/06/16 21:18 Dose: 25 mg Mometasone Furoate/Formoterol Fumar (Dulera 200-5 Mcg) 2 puff IH BIDRT [facility] Last Admin: 08/07/16 07:59 Dose: 2 puff Morphine Sulfate (Morphine) 30 mg PO Q4H PRN PRN Reason: shortness of breath Last Admin: 08/07/16 04:56 Dose: 30 mg Ondansetron HCl (Zofran Odt) 4 mg PO Q6H PRN PRN Reason: Nausea able to take PO Oxybutynin Chloride (Oxybutynin) 5 mg PO BID [facility] Last Admin: 08/07/16 08:56 Dose: 5 mg Pantoprazole Sodium (Protonix) 40 mg PO ACBREAKFAST [facility] Last Admin: 08/07/16 08:00 Dose: 40 mg Polyethylene Glycol (Miralax) 17 gm PO DAILY PRN PRN Reason: Constipation Potassium Chloride (Klor-Con M20) 20 meq PO BIDMEALS [facility] Last Admin: 08/07/16 08:09 Dose: 20 meq Prednisone (Prednisone) 40 mg PO WITHBREAKFAST [facility] Last Admin: 08/07/16 08:48 Dose: 40 mg Promethazine HCl (Phenergan) 25 mg PO Q8H PRN PRN Reason: Nausea Last Admin: 08/03/16 00:42 Dose: 25 mg Simvastatin (Zocor) 10 mg PO BEDTIME [facility] Last Admin: 08/06/16 21:19 Dose: 10 mg Sodium Chloride (Saline Flush) 10 ml FLUSH ASDIRECTED PRN PRN Reason: Keep Vein Open Last Admin: 08/01/16 15:38 Dose: 10 ml Sucralfate (Carafate) 1 gm PO QIDACANDBED [facility] Last Admin: 08/07/16 11:09 Dose: 1 gm Trazodone HCl (Trazodone) 50 mg PO BEDTIME [facility] Last Admin: 08/06/16 21:19 Dose: 50 mg Verapamil HCl (Calan Sr) 180 mg PO BIDAC [facility] Last Admin: 08/07/16 08:00 Dose: 180 mg Discontinued Medications Acetaminophen (Tylenol) 650 mg PO Q4H PRN PRN Reason: Pain (Mild 1-3)/fever Last Admin: 07/30/16 13:16 Dose: 650 mg Alteplase, Recombinant (Cathflo Activase) 2 mg IVPUSH ONETIME ONE Stop: 07/31/16 12:31 Last Admin: 07/31/16 12:40 Dose: 2 mg Bumetanide (Bumex) 2 mg IVPUSH ONETIME ONE Stop: 07/29/16 15:16 Last Admin: 07/29/16 15:22 Dose: 2 mg Bumetanide (Bumex) 2 mg IVPUSH BIDDIURETIC [facility] Last Admin: 07/31/16 10:54 Dose: Not Given Bumetanide (Bumex) 2 mg PO BIDDIURETIC [facility] Last Admin: 08/04/16 13:22 Dose: 2 mg Bumetanide (Bumex) 2 mg IVPUSH DAILY [facility] Stop: 08/05/16 08:01 Last Admin: 08/05/16 08:37 Dose: 2 mg Bumetanide (Bumex) 2 mg PO BIDDIURETIC [facility] Last Admin: 08/06/16 13:42 Dose: 2 mg Heparin Sodium (Porcine) (Heparin Lock Flush 100 Units/Ml Syringe) Confirm Administered Dose 500 units .ROUTE .STK-MED ONE Stop: 07/29/16 15:15 Last Admin: 07/29/16 15:25 Dose: 500 units Heparin Sodium (Porcine) (Heparin Lock Flush 100 Units/Ml Syringe) Confirm Administered Dose 500 units .ROUTE .STK-MED ONE Stop: 07/29/16 22:03 Last Admin: 07/29/16 22:35 Dose: 500 units Heparin Sodium (Porcine) (Heparin Lock Flush 100 Units/Ml Syringe) Confirm Administered Dose 500 units .ROUTE .STK-MED ONE Stop: 07/30/16 00:32 Last Admin: 07/30/16 10:45 Dose: Not Given Ceftazidime 1 gm/ Sodium (Chloride) 50 mls @ 100 mls/hr IV Q8H [facility] Last Admin: 08/04/16 17:32 Dose: 100 mls/hr Azithromycin 500 mg/ Sodium (Chloride) 250 mls @ 250 mls/hr IV Q24H [facility] Last Admin: 08/04/16 15:36 Dose: 250 mls/hr Sodium Chloride (Normal Saline) 500 mls @ 500 mls/hr IV .BOLUS ONE Stop: 07/30/16 17:44 Last Admin: 07/30/16 17:04 Dose: 500 mls/hr Vancomycin HCl 1.75 gm/ Sodium (Chloride) 250 mls @ 167 mls/hr IV Q12H [facility] Last Admin: 07/30/16 20:11 Dose: Not Given Sodium Chloride (Normal Saline) 500 mls @ 500 mls/hr IV .BOLUS ONE Stop: 07/30/16 19:39 Last Admin: 07/30/16 19:41 Dose: 500 mls/hr Insulin Aspart (Novolog) 15 unit SUBCUT ONETIME ONE Stop: 07/31/16 12:16 Last Admin: 07/31/16 12:27 Dose: 15 units Insulin Aspart (Novolog) 20 unit SUBCUT ONETIME ONE Stop: 08/02/16 21:09 Last Admin: 08/02/16 21:24 Dose: 20 units Insulin Aspart (Novolog) Confirm Administered Dose 300 unit .ROUTE .STK-MED ONE Stop: 08/06/16 16:55 Last Admin: 08/06/16 16:58 Dose: Not Given Insulin Detemir (Levemir) 30 unit SUBCUT BEDTIME [facility] Last Admin: 07/29/16 22:41 Dose: 30 units Insulin Detemir (Levemir) 40 unit SUBCUT BEDTIME [facility] Last Admin: 07/30/16 21:06 Dose: 40 unit Methylprednisolone Sodium Succinate (Solu-Medrol) 62.5 mg IVPUSH Q8H [facility] Last Admin: 08/03/16 09:00 Dose: 62.5 mg Methylprednisolone Sodium Succinate (Solu-Medrol) 40 mg IVPUSH Q8H [facility] Last Admin: 08/05/16 10:44 Dose: 40 mg Methylprednisolone Sodium Succinate (Solu-Medrol) 40 mg IVPUSH Q12H [facility] Last Admin: 08/06/16 09:45 Dose: 40 mg Morphine Sulfate (Morphine) 4 - 8 mg IVPUSH Q4H PRN PRN Reason: Pain Last Admin: 08/03/16 00:33 Dose: 4 mg Oseltamivir Phosphate (Tamiflu) 75 mg PO BID [facility] Stop: 08/04/16 07:00 Last Admin: 08/03/16 21:49 Dose: 75 mg Prednisone (Prednisone) 20 mg PO BIDMEALS [facility] Last Admin: 07/30/16 09:14 Dose: 20 mg - Exam Quality Assessment: supplemental oxygen, DVT prophylaxis General: alert, oriented, cooperative, no acute distress Lungs: Decreased breath sounds. No: Crackles, Rales, Rhonchi, Rub, Stridor, Wheezing Cardiovascular: regular rate, regular rhythm, no murmurs Abdomen: bowel sounds present, soft, no tenderness, no distension Extremities: edema Skin: warm, dry, intact - Problem List Review Problem List Initiated/Reviewed/Updated: Yes - My Orders Last 24 Hours: My Active Orders 08/06/16 21:00 Bumetanide [Bumex] 2 mg IVPUSH BID 08/07/16 08:00 predniSONE 40 mg PO WITHBREAKFAST 08/08/16 05:00 BASIC METABOLIC PANEL,BMP [CHEM] Timed MAGNESIUM [CHEM] Timed - Plan Plan:: Assessment and plan - Acute influenza A. with acute exacerbation of COPD - patient tested positive and Tamiflu has been completed. Oxygenation is excellent symptoms slowly improving. -morphine for chest pain -Nebulizers -supplement oxygen as needed Subacute exacerbation of congestive heart failure with preserved ejection fraction - further improvement in edema with use of IV Bumex twice daily -Bumex 4 mg IV twice daily -Monitor electrolytes -Continue medical management including beta marsha and long-acting nitrate -Morphine as needed for air hunger Acute cystitis -resolved after antibiotic therapy Rheumatoid arthritis - often has difficulty with increasing symptoms around the time of an infection. -Prednisone 40 mg by mouth daily Insulin-dependent diabetes mellitus, suboptimally controlled - sugars are are better controlled today. -Continue increased dose of long-acting insulin -Mealtime insulin -Sliding-scale Maintenance issues - - DVT prophylaxis - enoxaparin - GI prophylaxis - PPI - Nutrition - consistent carbohydrate diet - Dougherty catheter - not indicated Disposition - anticipate discharge to home after the hospital stay
[2016-08-07] MEDS: Acetaminophen 500 MG Tab PO PRN (16:01)
[2016-08-07] MEDS: ESCITALOPRAM PO SCH ×2 (20:06)
[2016-08-07] MEDS: traZODone 50 MG Tab PO SCH (20:08)
[2016-08-07] MEDS: Simvastatin 20 MG Tab PO SCH (20:09)
[2016-08-07] MEDS: Metoprolol Succinate 25 MG Tab.ER PO SCH (20:10)
[2016-08-07] MEDS: LORazepam 2 MG/ML MDV IV PRN (21:46)
[2016-08-07] MEDS: Insulin Detemir 100 Units/ML 3 ML Pen SUBCUT SCH (21:49)
[2016-08-08] MEDS: Acetaminophen 500 MG Tab PO PRN (05:09)
[2016-08-08] MEDS: Albuterol/Ipratropium 3.0-0.5 MG/3 ML Neb Soln NEB SCH ×4 (07:29→20:35)
[2016-08-08] MEDS: Formoterol/Mometasone 200-5 MCG 8.8 GM Inhaler IH SCH ×2 (07:30→20:06)
[2016-08-08] MEDS: Insulin Aspart 100 Units/ML 3 ML Pen SUBCUT SCH ×7 (07:58→21:56)
[2016-08-08] MEDS: Sucralfate 1 GM Tab PO SCH ×4 (08:08→20:06)
[2016-08-08] MEDS: Pantoprazole 40 MG Tab.CR PO SCH (08:09)
[2016-08-08] MEDS: Verapamil 180 MG Tab.ER PO SCH ×2 (08:09→16:04)
[2016-08-08] MEDS: Potassium Chloride 20 MEQ Tab.ER PO SCH ×2 (08:10→16:05)
[2016-08-08] MEDS: predniSONE 20 MG Tab PO SCH (08:11)
[2016-08-08] MEDS: Aspirin 81 MG Tab.Chew PO SCH (08:11)
[2016-08-08] MEDS: Lactobacillus Rhamnosus GG (Probiotic) Cap PO SCH ×2 (08:12→20:05)
[2016-08-08] MEDS: Folic Acid 1 MG Tab PO SCH (08:13)
[2016-08-08] MEDS: Ferrous Sulfate 325 MG Tab PO SCH (08:13)
[2016-08-08] MEDS: Isosorbide Mononitrate 30 MG Tab.ER PO SCH (08:14)
[2016-08-08] MEDS: Magnesium Oxide 400 MG Tab PO SCH ×2 (08:16→20:08)
[2016-08-08] MEDS: Enoxaparin 40 MG/0.4 ML Syringe SUBCUT SCH (08:16)
[2016-08-08] MEDS: Clotrimazole 10 MG Troche PO SCH (08:16)
[2016-08-08] MEDS: Gabapentin 300 MG Cap PO SCH ×2 (08:17→20:09)
[2016-08-08] MEDS: Lisinopril 20 MG Tab PO SCH (08:17)
[2016-08-08] MEDS: Oxybutynin 5 MG Tab PO SCH ×2 (08:17→20:10)
[2016-08-08] MEDS: Bumetanide 2.5 MG/10 ML MDV IVPUSH SCH (10:05)
--- NOTE | 2016-08-08 12:41 | PCM.PN ---
- General Info Date of Service: 08/08/16 Functional Status: Reports: pain controlled, ambulating, urinating - Review of Systems General: Reports: weakness. Denies: fever, chills Pulmonary: Reports: shortness of breath, cough. Denies: pleuritic chest pain, sputum, hemoptysis, wheezing Cardiovascular: Reports: dyspnea on exertion, edema. Denies: chest pain, palpitations, orthopnea, PND, lightheadedness Gastrointestinal: Reports: No symptoms Systems Review Comment:: Dipti is experienced further improvement in her respiratory status over the past 24 hours with less shortness of breath and cough. Peripheral edema has improved but not totally resolved with use of IV diuretic therapy. Vital signs have been stable and she has remained afebrile. - Patient Data Vitals - most recent: Last Vital Signs Temp 97.3 F 08/08/16 10:51 Pulse 76 08/08/16 10:53 Resp 20 08/08/16 10:51 BP 91/76 08/08/16 10:51 Pulse Ox 91 L 08/08/16 10:53 Weight - most recent: 300 lb 0.01 oz I&O - last 24 hours: Intake & Output 08/07/16 08/08/16 08/08/16 22:59 06:59 14:59 Intake Total 360 400 340 Output Total 600 600 400 Balance -240 -200 -60 Lab Results last 24 hrs: Laboratory Results - last 24 hr 08/08/16 Range/Units 05:00 Sodium 144 (140-148) mmol/L Potassium 3.9 (3.6-5.2) mmol/L Chloride 101 (100-108) mmol/L Carbon Dioxide 41 H (21-32) mmol/L Anion Gap 5.9 (5.0-14.0) mmol/L BUN 26 H (7-18) mg/dL Creatinine 0.7 (0.6-1.0) mg/dL Est Cr Clr Drug Dosing 78.01 mL/min Estimated GFR (MDRD) > 60 (>60) Glucose 167 H (74-106) mg/dL Calcium 8.4 L (8.5-10.1) mg/dL Magnesium 1.9 (1.8-2.4) mg/dL Med Orders - Current: Current Medications Acetaminophen (Tylenol Extra Strength) 1,000 mg PO TID PRN PRN Reason: Pain/Fever Last Admin: 08/08/16 05:09 Dose: 1,000 mg Albuterol (Proventil Neb Soln) 2.5 mg NEB Q4H PRN PRN Reason: Shortness Of Breath/wheezing Albuterol/Ipratropium (Duoneb 3.0-0.5 Mg/3 Ml) 3 ml NEB QIDRT [facility] Last Admin: 08/08/16 10:53 Dose: 3 ml Alprazolam (Xanax) 0.25 mg PO TID PRN PRN Reason: Anxiety Last Admin: 08/04/16 10:31 Dose: 0.25 mg Aspirin (Aspirin) 81 mg PO DAILY [facility] Last Admin: 08/08/16 08:11 Dose: 81 mg Azathioprine (Imuran) 150 mg PO DAILY [facility] Last Admin: 08/08/16 08:15 Dose: 150 mg Benzonatate (Tessalon Perles) 100 mg PO TID PRN PRN Reason: Cough Last Admin: 07/30/16 08:59 Dose: 100 mg Bumetanide (Bumex) 2 mg PO BIDDIURETIC [facility] Clotrimazole (Mycelex) 10 mg PO DAILY [facility] Last Admin: 08/08/16 08:16 Dose: 10 mg Enoxaparin Sodium (Lovenox) 40 mg SUBCUT DAILY [facility] Last Admin: 08/08/16 08:16 Dose: 40 mg Escitalopram Oxalate 10 mg/ (Escitalopram Oxalate 20 mg) 30 mg PO BEDTIME [facility] Last Admin: 08/07/16 20:06 Dose: 30 mg Ferrous Sulfate (Ferrous Sulfate) 325 mg PO DAILY [facility] Last Admin: 08/08/16 08:13 Dose: 325 mg Folic Acid (Folic Acid) 1 mg PO DAILY [facility] Last Admin: 08/08/16 08:13 Dose: 1 mg Gabapentin (Neurontin) 300 mg PO BID [facility] Last Admin: 08/08/16 08:17 Dose: 300 mg Heparin Sodium (Porcine) (Heparin Lock Flush 100 Units/Ml Syringe) 500 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 Last Admin: 08/08/16 05:04 Dose: 500 units Insulin Aspart (Novolog) 0 unit SUBCUT QIDACANDBED [facility] PRN Reason: Protocol Last Admin: 08/08/16 12:03 Dose: 3 unit Insulin Aspart (Novolog) 10 unit SUBCUT TIDMEALS [facility] Last Admin: 08/08/16 12:04 Dose: 10 unit Insulin Detemir (Levemir) 50 unit SUBCUT BEDTIME [facility] Last Admin: 08/07/16 21:49 Dose: 50 units Isosorbide Mononitrate (Imdur) 30 mg PO DAILY [facility] Last Admin: 08/08/16 08:14 Dose: 30 mg Lactobacillus Rhamnosus (Culturelle) 1 cap PO BID [facility] Last Admin: 08/08/16 08:12 Dose: 1 cap Lisinopril (Prinivil) 20 mg PO DAILY [facility] Last Admin: 08/08/16 08:17 Dose: 20 mg Lorazepam (Ativan) 0.5 - 1 mg IV Q4H PRN PRN Reason: Nausea/Vomiting Last Admin: 08/07/16 21:46 Dose: 1 mg Magnesium Hydroxide (Milk Of Magnesia) 30 ml PO Q12H PRN PRN Reason: Constipation Last Admin: 08/03/16 09:38 Dose: 30 ml Magnesium Oxide (Magnesium Oxide) 400 mg PO BID [facility] Last Admin: 08/08/16 08:16 Dose: 400 mg Metformin HCl (Glucophage) 850 mg PO BIDMEALS [facility] Last Admin: 08/08/16 08:10 Dose: 850 mg Metoprolol Succinate (Toprol Xl) 25 mg PO BEDTIME [facility] Last Admin: 08/07/16 20:10 Dose: 25 mg Mometasone Furoate/Formoterol Fumar (Dulera 200-5 Mcg) 2 puff IH BIDRT [facility] Last Admin: 08/08/16 07:30 Dose: 2 puff Morphine Sulfate (Morphine) 30 mg PO Q4H PRN PRN Reason: shortness of breath Last Admin: 08/07/16 21:50 Dose: 30 mg Ondansetron HCl (Zofran Odt) 4 mg PO Q6H PRN PRN Reason: Nausea able to take PO Oxybutynin Chloride (Oxybutynin) 5 mg PO BID [facility] Last Admin: 08/08/16 08:17 Dose: 5 mg Pantoprazole Sodium (Protonix) 40 mg PO ACBREAKFAST [facility] Last Admin: 08/08/16 08:09 Dose: 40 mg Polyethylene Glycol (Miralax) 17 gm PO DAILY PRN PRN Reason: Constipation Potassium Chloride (Klor-Con M20) 20 meq PO BIDMEALS [facility] Last Admin: 08/08/16 08:10 Dose: 20 meq Prednisone (Prednisone) 40 mg PO WITHBREAKFAST [facility] Last Admin: 08/08/16 08:11 Dose: 40 mg Promethazine HCl (Phenergan) 25 mg PO Q8H PRN PRN Reason: Nausea Last Admin: 08/03/16 00:42 Dose: 25 mg Simvastatin (Zocor) 10 mg PO BEDTIME [facility] Last Admin: 08/07/16 20:09 Dose: 10 mg Sodium Chloride (Saline Flush) 10 ml FLUSH ASDIRECTED PRN PRN Reason: Keep Vein Open Last Admin: 08/01/16 15:38 Dose: 10 ml Sucralfate (Carafate) 1 gm PO QIDACANDBED [facility] Last Admin: 08/08/16 12:02 Dose: 1 gm Trazodone HCl (Trazodone) 50 mg PO BEDTIME [facility] Last Admin: 08/07/16 20:08 Dose: 50 mg Verapamil HCl (Calan Sr) 180 mg PO BIDAC [facility] Last Admin: 08/08/16 08:09 Dose: 180 mg Discontinued Medications Acetaminophen (Tylenol) 650 mg PO Q4H PRN PRN Reason: Pain (Mild 1-3)/fever Last Admin: 07/30/16 13:16 Dose: 650 mg Alteplase, Recombinant (Cathflo Activase) 2 mg IVPUSH ONETIME ONE Stop: 07/31/16 12:31 Last Admin: 07/31/16 12:40 Dose: 2 mg Bumetanide (Bumex) 2 mg IVPUSH ONETIME ONE Stop: 07/29/16 15:16 Last Admin: 07/29/16 15:22 Dose: 2 mg Bumetanide (Bumex) 2 mg IVPUSH BIDDIURETIC [facility] Last Admin: 07/31/16 10:54 Dose: Not Given Bumetanide (Bumex) 2 mg PO BIDDIURETIC [facility] Last Admin: 08/04/16 13:22 Dose: 2 mg Bumetanide (Bumex) 2 mg IVPUSH DAILY [facility] Stop: 08/05/16 08:01 Last Admin: 08/05/16 08:37 Dose: 2 mg Bumetanide (Bumex) 2 mg PO BIDDIURETIC [facility] Last Admin: 08/06/16 13:42 Dose: 2 mg Bumetanide (Bumex) 2 mg IVPUSH BID [facility] Last Admin: 08/08/16 10:05 Dose: 2 mg Heparin Sodium (Porcine) (Heparin Lock Flush 100 Units/Ml Syringe) Confirm Administered Dose 500 units .ROUTE .STK-MED ONE Stop: 07/29/16 15:15 Last Admin: 07/29/16 15:25 Dose: 500 units Heparin Sodium (Porcine) (Heparin Lock Flush 100 Units/Ml Syringe) Confirm Administered Dose 500 units .ROUTE .STK-MED ONE Stop: 07/29/16 22:03 Last Admin: 07/29/16 22:35 Dose: 500 units Heparin Sodium (Porcine) (Heparin Lock Flush 100 Units/Ml Syringe) Confirm Administered Dose 500 units .ROUTE .STK-MED ONE Stop: 07/30/16 00:32 Last Admin: 07/30/16 10:45 Dose: Not Given Ceftazidime 1 gm/ Sodium (Chloride) 50 mls @ 100 mls/hr IV Q8H [facility] Last Admin: 08/04/16 17:32 Dose: 100 mls/hr Azithromycin 500 mg/ Sodium (Chloride) 250 mls @ 250 mls/hr IV Q24H [facility] Last Admin: 08/04/16 15:36 Dose: 250 mls/hr Sodium Chloride (Normal Saline) 500 mls @ 500 mls/hr IV .BOLUS ONE Stop: 07/30/16 17:44 Last Admin: 07/30/16 17:04 Dose: 500 mls/hr Vancomycin HCl 1.75 gm/ Sodium (Chloride) 250 mls @ 167 mls/hr IV Q12H [facility] Last Admin: 07/30/16 20:11 Dose: Not Given Sodium Chloride (Normal Saline) 500 mls @ 500 mls/hr IV .BOLUS ONE Stop: 07/30/16 19:39 Last Admin: 07/30/16 19:41 Dose: 500 mls/hr Insulin Aspart (Novolog) 15 unit SUBCUT ONETIME ONE Stop: 07/31/16 12:16 Last Admin: 07/31/16 12:27 Dose: 15 units Insulin Aspart (Novolog) 20 unit SUBCUT ONETIME ONE Stop: 08/02/16 21:09 Last Admin: 08/02/16 21:24 Dose: 20 units Insulin Aspart (Novolog) Confirm Administered Dose 300 unit .ROUTE .STK-MED ONE Stop: 08/06/16 16:55 Last Admin: 08/06/16 16:58 Dose: Not Given Insulin Detemir (Levemir) 30 unit SUBCUT BEDTIME [facility] Last Admin: 07/29/16 22:41 Dose: 30 units Insulin Detemir (Levemir) 40 unit SUBCUT BEDTIME [facility] Last Admin: 07/30/16 21:06 Dose: 40 unit Methylprednisolone Sodium Succinate (Solu-Medrol) 62.5 mg IVPUSH Q8H [facility] Last Admin: 08/03/16 09:00 Dose: 62.5 mg Methylprednisolone Sodium Succinate (Solu-Medrol) 40 mg IVPUSH Q8H [facility] Last Admin: 08/05/16 10:44 Dose: 40 mg Methylprednisolone Sodium Succinate (Solu-Medrol) 40 mg IVPUSH Q12H [facility] Last Admin: 08/06/16 09:45 Dose: 40 mg Morphine Sulfate (Morphine) 4 - 8 mg IVPUSH Q4H PRN PRN Reason: Pain Last Admin: 08/03/16 00:33 Dose: 4 mg Oseltamivir Phosphate (Tamiflu) 75 mg PO BID [facility] Stop: 08/04/16 07:00 Last Admin: 08/03/16 21:49 Dose: 75 mg Prednisone (Prednisone) 20 mg PO BIDMEALS [facility] Last Admin: 07/30/16 09:14 Dose: 20 mg - Exam Quality Assessment: supplemental oxygen, DVT prophylaxis General: alert, oriented, cooperative, no acute distress Lungs: Decreased breath sounds, Wheezing. No: Crackles, Rales, Rhonchi, Rub, Stridor Cardiovascular: regular rate, regular rhythm, no murmurs Abdomen: bowel sounds present, soft, no tenderness, no distension Extremities: edema Skin: warm, dry, intact - Problem List Review Problem List Initiated/Reviewed/Updated: Yes - My Orders Last 24 Hours: My Active Orders 08/08/16 14:00 Bumetanide [Bumex] 2 mg PO BIDDIURETIC - Plan Plan:: Assessment and plan - Acute influenza A. with acute exacerbation of COPD - patient tested positive and Tamiflu has been completed. Oxygenation is excellent symptoms slowly improving. -morphine for chest pain -Nebulizers -supplement oxygen as needed Subacute exacerbation of congestive heart failure with preserved ejection fraction - edema has improved over the past few days with use of IV diuretics, we'll plan to transition to oral diuretic therapy today -Bumex 2 mg by mouth twice daily -Continue medical management including beta marsha and long-acting nitrate -Morphine as needed for air hunger Acute cystitis -resolved after antibiotic therapy Rheumatoid arthritis - often has difficulty with increasing symptoms around the time of an infection. -Prednisone 40 mg by mouth daily Insulin-dependent diabetes mellitus, suboptimally controlled - sugars are are better controlled today. -Continue increased dose of long-acting insulin -Mealtime insulin -Sliding-scale Maintenance issues - - DVT prophylaxis - enoxaparin - GI prophylaxis - PPI - Nutrition - consistent carbohydrate diet - Dougherty catheter - not indicated Disposition - anticipate discharge to home tomorrow
[2016-08-08] MEDS: ALPRAZolam 0.25 MG Tab PO PRN (14:11)
[2016-08-08] MEDS: Bumetanide 1 MG Tab PO SCH (14:12)
[2016-08-08] MEDS ORDERED: LORazepam 0.5 MG Tab PO PRN (17:08)
[2016-08-08] MEDS: ESCITALOPRAM PO SCH ×2 (20:07)
[2016-08-08] MEDS: Metoprolol Succinate 25 MG Tab.ER PO SCH (20:11)
[2016-08-08] MEDS: traZODone 50 MG Tab PO SCH (20:11)
[2016-08-08] MEDS: Simvastatin 20 MG Tab PO SCH (20:13)
[2016-08-08] MEDS: Insulin Detemir 100 Units/ML 3 ML Pen SUBCUT SCH (21:56)
[2016-08-09] MEDS: Sucralfate 1 GM Tab PO SCH ×2 (07:22→11:51)
[2016-08-09] MEDS: Pantoprazole 40 MG Tab.CR PO SCH (07:23)
[2016-08-09] MEDS: Verapamil 180 MG Tab.ER PO SCH (07:27)
[2016-08-09] MEDS: Insulin Aspart 100 Units/ML 3 ML Pen SUBCUT SCH ×4 (07:29→11:55)
[2016-08-09] MEDS: Bumetanide 1 MG Tab PO SCH (07:37)
[2016-08-09] MEDS: predniSONE 20 MG Tab PO SCH (07:38)
[2016-08-09] MEDS: Potassium Chloride 20 MEQ Tab.ER PO SCH (07:38)
[2016-08-09] MEDS: Albuterol/Ipratropium 3.0-0.5 MG/3 ML Neb Soln NEB SCH ×2 (08:08→11:16)
[2016-08-09] MEDS: Formoterol/Mometasone 200-5 MCG 8.8 GM Inhaler IH SCH (08:09)
[2016-08-09] MEDS: Promethazine 25 MG Tab PO PRN (08:32)
[2016-08-09] MEDS: Lactobacillus Rhamnosus GG (Probiotic) Cap PO SCH (08:33)
[2016-08-09] MEDS: Ferrous Sulfate 325 MG Tab PO SCH (08:33)
[2016-08-09] MEDS: Aspirin 81 MG Tab.Chew PO SCH (08:33)
[2016-08-09] MEDS: Folic Acid 1 MG Tab PO SCH (08:34)
[2016-08-09] MEDS: Magnesium Oxide 400 MG Tab PO SCH (08:35)
[2016-08-09] MEDS: Clotrimazole 10 MG Troche PO SCH (08:35)
[2016-08-09] MEDS: Oxybutynin 5 MG Tab PO SCH (08:35)
[2016-08-09] MEDS: Gabapentin 300 MG Cap PO SCH (08:35)
[2016-08-09] MEDS: Isosorbide Mononitrate 30 MG Tab.ER PO SCH (08:37)
[2016-08-09] MEDS: Lisinopril 20 MG Tab PO SCH (08:37)
[2016-08-09] MEDS: Enoxaparin 40 MG/0.4 ML Syringe SUBCUT SCH ×2 (08:37→11:53)
[2016-08-09 11:32] VITALS: BP 110/70
--- NOTE | 2016-08-09 12:19 | PCM.DCSUM1 ---
Discharge Summary - Hospital Course Brief History: Dipti is a 60-year-old woman who was admitted with acute on chronic respiratory failure with increased shortness in breath and hypoxia, secondary to influenza A. - Discharge Data Discharge Date: 08/09/16 Discharge Disposition: Home, W Home Health Agency 06 Condition: Fair - Discharge Diagnosis/Problem(s) (1) Diastolic congestive heart failure SNOMED Code(s): 314902432, 544797995 ICD Code: I50.30 - UNSPECIFIED DIASTOLIC (CONGESTIVE) HEART FAILURE Status : Acute Current Visit: Yes (2) Influenza A SNOMED Code(s): 419566100 ICD Code: J10.1 - FLU DUE TO OTH IDENT INFLUENZA VIRUS W OTH RESP MANIFEST Status: Acute Current Visit: Yes (3) Acute cystitis SNOMED Code(s): 09723053 ICD Code: N30.00 - ACUTE CYSTITIS WITHOUT HEMATURIA Status: Acute Current Visit: Yes Qualifiers: Hematuria presence: without hematuria Qualified Code(s): N30.00 - Acute cystitis without hematuria (4) Diabetes mellitus type 2 SNOMED Code(s): 71538593 ICD Code: E11.9 - TYPE 2 DIABETES MELLITUS WITHOUT COMPLICATIONS Status: Chronic Priority: High Current Visit: No (5) COLD, Chronic obstructive lung disease SNOMED Code(s): 52264692 ICD Code: J44.9 - CHRONIC OBSTRUCTIVE PULMONARY DISEASE, UNSPECIFIED Status : Chronic Priority: High Current Visit: No (6) COR (chronic cor pulmonale) SNOMED Code(s): 82460888 ICD Code: I27.81 - COR PULMONALE (CHRONIC) Status: Chronic Priority: Medium Current Visit: No - Patient Summary/Data Hospital Course: Dipti is a 60-year-old woman with a known history of chronic pulmonary disease secondary to her underlying rheumatoid arthritis. She uses home oxygen and also has a Trilogy home ventilator system but she uses a regular basis especially when sleeping. Prior to admission she developed a cough and increased shortness of breath. On evaluation in the emergency department was noted to have hypoxia, worse than baseline. Chest x-ray showed no obvious infiltrates in white blood cell count was normal. Influenza antigen for influenza A. he was found to be positive. She was given IV fluids for hydration and started on Tamiflu 75 mg twice daily. In addition for management of respiratory compromise she continued to receive supplemental oxygen, IV Solu- Medrol, and nebulizer therapy. Over the next several days of her hospital stay she gradually improved and by the time of discharge continued to have a nonproductive cough but much less shortness of breath and hypoxia. She was also felt to have a component of diastolic congestive heart failure with increase in peripheral edema and received IV diuretic therapy prior to discharge. She continued to experience some peripheral edema but it was significantly improved prior to IV diuretic therapy and she will resume her usual diuretic therapy as well as a strict 2 g sodium diet at home. Urine analysis did come back showing evidence of infection and she completed a course of antibiotic therapy while in the hospital. Diabetes was managed using long and short acting insulin with monitoring of 4 times a day glucometers. She will be discharged home on an increased dose of prednisone at 40 mg a day for the next 3 days and then decrease her dose to 20 mg a day until seen for followup by her primary care provider. Activity will be as tolerated and she will be on a strict 2 g sodium diet as well as diabetic diet. Followup appointment will be scheduled with her primary care provider Dr. Gonsalez within one week. - Patient Instructions Diet: Low Sodium, Diabetic Diet Other/Special Instructions: Home care followup after discharge including restorative physical therapy and occupational therapy. Schedule followup appointment with Dr. Gonsalez within one week. - Discharge Plan Prescriptions/Med Rec: Prednisone [IJD: predniSONE] 40 mg PO WITHBREAKFAST #30 tablet Home Medications: Home Meds Albuterol [Ventolin HFA] 2 puff INH ASDIRECTED PRN 03/01/13 [History] Escitalopram [Lexapro] 30 mg PO BEDTIME 03/01/13 [History] Ipratropium/Albuterol Sulfate [Duoneb 0.5 MG-3 MG/3 ML] 3 ml INH QID 03/01/13 [ History] Metoprolol Succinate [Toprol XL] 25 mg PO BEDTIME 03/01/13 [History] Verapamil HCl [Verelan] 180 mg PO BIDAC 03/01/13 [History] Aspirin 81 mg PO DAILY 08/30/13 [History] Simvastatin [Zocor] 10 mg PO BEDTIME 08/30/13 [History] Magnesium Oxide 400 mg PO BID 09/01/13 [History] Lactobacillus Acidophilus [Probiotic] 1 cap PO BID 04/05/14 [History] Cyclobenzaprine [Flexeril] 10 mg PO TID PRN 09/27/14 [History] Folic Acid 1 mg PO DAILY 09/27/14 [History] metFORMIN [Glucophage] 850 mg PO BID 09/27/14 [History] Gabapentin [Neurontin] 300 mg PO BID 03/28/15 [History] Lisinopril 20 mg PO DAILY 03/28/15 [History] Oxybutynin [Oxybutynin ER] 10 mg PO DAILY 03/28/15 [History] Promethazine [Phenergan] 25 mg PO Q8H PRN 03/28/15 [History] traZODone 50 mg PO BEDTIME 03/28/15 [History] LORazepam [Ativan] 0.5 mg PO ASDIRECTED PRN 04/24/15 [History] Potassium Chloride [Klor-Con M20] 20 meq PO BID #60 tab.er 07/29/15 [Rx] Cyanocobalamin (Vitamin B12) [Vitamin B12] 1,000 mcg IM Q30D 09/26/15 [History] Ergocalciferol (Vitamin D2) [Vitamin D2] 50,000 unit PO WEEKLY 09/26/15 [History ] Ferrous Sulfate 325 mg PO DAILY 09/26/15 [History] Fluticasone/Salmeterol [Advair Diskus 500-50] 1 puff INH BID 12/05/15 [History] azaTHIOprine [Azathioprine] 150 mg PO DAILY 12/05/15 [History] ALPRAZolam [Alprazolam] 0.25 mg PO ASDIRECTED 04/12/16 [History] Isosorbide Mononitrate [Isosorbide Mononitrate ER] 30 mg PO DAILY 04/12/16 [ History] Morphine Sulfate 15 mg PO Q4H PRN 04/12/16 [History] Insulin Detemir [Levemir Flextouch] 30 units SQ BEDTIME 05/10/16 [History] Sucralfate [Carafate] 1 gm PO QIDACANDBED 05/10/16 [History] Bumetanide [Bumex] 2 mg PO BID #60 tablet 05/17/16 [Rx] Insulin Aspart [NovoLOG] 10 unit SUBCUT TIDMEALS 06/05/16 [History] Pantoprazole [Protonix] 40 mg PO DAILY 07/13/16 [History] Clotrimazole [Mycelex] 10 mg PO DAILY 07/29/16 [History] Prednisone [IJD: predniSONE] 40 mg PO WITHBREAKFAST #30 tablet 08/09/16 [Rx] - Patient Data Vitals - Most Recent: Last Vital Signs Temp 97.6 F 08/09/16 11:32 Pulse 90 08/09/16 11:32 Resp 18 08/09/16 11:32 BP 110/70 08/09/16 11:32 Pulse Ox 92 L 08/09/16 11:32 Weight - Most Recent: 300 lb 14.4 oz I&O - Last 24 hours: Intake & Output 08/08/16 08/09/16 08/09/16 22:59 06:59 14:59 Intake Total 600 600 Output Total 900 400 Balance -300 200 Med Orders - Current: Current Medications Acetaminophen (Tylenol Extra Strength) 1,000 mg PO TID PRN PRN Reason: Pain/Fever Last Admin: 08/08/16 05:09 Dose: 1,000 mg Albuterol (Proventil Neb Soln) 2.5 mg NEB Q4H PRN PRN Reason: Shortness Of Breath/wheezing Albuterol/Ipratropium (Duoneb 3.0-0.5 Mg/3 Ml) 3 ml NEB QIDRT [facility] Last Admin: 08/09/16 11:16 Dose: 3 ml Alprazolam (Xanax) 0.25 mg PO TID PRN PRN Reason: Anxiety Last Admin: 08/08/16 14:11 Dose: 0.25 mg Aspirin (Aspirin) 81 mg PO DAILY [facility] Last Admin: 08/09/16 08:33 Dose: 81 mg Azathioprine (Imuran) 150 mg PO DAILY [facility] Last Admin: 08/09/16 08:34 Dose: 150 mg Benzonatate (Tessalon Perles) 100 mg PO TID PRN PRN Reason: Cough Last Admin: 07/30/16 08:59 Dose: 100 mg Bumetanide (Bumex) 2 mg PO BIDDIURETIC [facility] Last Admin: 08/09/16 07:37 Dose: 2 mg Clotrimazole (Mycelex) 10 mg PO DAILY [facility] Last Admin: 08/09/16 08:35 Dose: 10 mg Enoxaparin Sodium (Lovenox) 40 mg SUBCUT DAILY [facility] Last Admin: 08/09/16 11:53 Dose: Not Given Escitalopram Oxalate 10 mg/ (Escitalopram Oxalate 20 mg) 30 mg PO BEDTIME [facility] Last Admin: 08/08/16 20:07 Dose: 30 mg Ferrous Sulfate (Ferrous Sulfate) 325 mg PO DAILY [facility] Last Admin: 08/09/16 08:33 Dose: 325 mg Folic Acid (Folic Acid) 1 mg PO DAILY [facility] Last Admin: 08/09/16 08:34 Dose: 1 mg Gabapentin (Neurontin) 300 mg PO BID [facility] Last Admin: 08/09/16 08:35 Dose: 300 mg Heparin Sodium (Porcine) (Heparin Lock Flush 100 Units/Ml Syringe) 500 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 Last Admin: 08/08/16 05:04 Dose: 500 units Insulin Aspart (Novolog) 0 unit SUBCUT QIDACANDBED [facility] PRN Reason: Protocol Last Admin: 08/09/16 11:54 Dose: 9 units Insulin Aspart (Novolog) 10 unit SUBCUT TIDMEALS [facility] Last Admin: 08/09/16 11:55 Dose: 10 units Insulin Detemir (Levemir) 50 unit SUBCUT BEDTIME [facility] Last Admin: 08/08/16 21:56 Dose: 50 units Isosorbide Mononitrate (Imdur) 30 mg PO DAILY [facility] Last Admin: 08/09/16 08:37 Dose: 30 mg Lactobacillus Rhamnosus (Culturelle) 1 cap PO BID [facility] Last Admin: 08/09/16 08:33 Dose: 1 cap Lisinopril (Prinivil) 20 mg PO DAILY [facility] Last Admin: 08/09/16 08:37 Dose: 20 mg Lorazepam (Ativan) 0.5 - 1 mg PO Q4H PRN PRN Reason: Anxiety Last Admin: 08/08/16 20:34 Dose: 1 mg Magnesium Hydroxide (Milk Of Magnesia) 30 ml PO Q12H PRN PRN Reason: Constipation Last Admin: 08/03/16 09:38 Dose: 30 ml Magnesium Oxide (Magnesium Oxide) 400 mg PO BID [facility] Last Admin: 08/09/16 08:35 Dose: 400 mg Metformin HCl (Glucophage) 850 mg PO BIDMEALS [facility] Last Admin: 08/09/16 07:39 Dose: 850 mg Metoprolol Succinate (Toprol Xl) 25 mg PO BEDTIME [facility] Last Admin: 08/08/16 20:11 Dose: 25 mg Mometasone Furoate/Formoterol Fumar (Dulera 200-5 Mcg) 2 puff IH BIDRT [facility] Last Admin: 08/09/16 08:09 Dose: 2 puff Morphine Sulfate (Morphine) 30 mg PO Q4H PRN PRN Reason: shortness of breath Last Admin: 08/09/16 06:53 Dose: 30 mg Ondansetron HCl (Zofran Odt) 4 mg PO Q6H PRN PRN Reason: Nausea able to take PO Oxybutynin Chloride (Oxybutynin) 5 mg PO BID [facility] Last Admin: 08/09/16 08:35 Dose: 5 mg Pantoprazole Sodium (Protonix) 40 mg PO ACBREAKFAST [facility] Last Admin: 08/09/16 07:23 Dose: 40 mg Polyethylene Glycol (Miralax) 17 gm PO DAILY PRN PRN Reason: Constipation Potassium Chloride (Klor-Con M20) 20 meq PO BIDMEALS [facility] Last Admin: 08/09/16 07:38 Dose: 20 meq Prednisone (Prednisone) 40 mg PO WITHBREAKFAST [facility] Last Admin: 08/09/16 07:38 Dose: 40 mg Promethazine HCl (Phenergan) 25 mg PO Q8H PRN PRN Reason: Nausea Last Admin: 08/09/16 08:32 Dose: 25 mg Simvastatin (Zocor) 10 mg PO BEDTIME [facility] Last Admin: 08/08/16 20:13 Dose: 10 mg Sodium Chloride (Saline Flush) 10 ml FLUSH ASDIRECTED PRN PRN Reason: Keep Vein Open Last Admin: 08/01/16 15:38 Dose: 10 ml Sucralfate (Carafate) 1 gm PO QIDACANDBED [facility] Last Admin: 08/09/16 11:51 Dose: 1 gm Trazodone HCl (Trazodone) 50 mg PO BEDTIME [facility] Last Admin: 08/08/16 20:11 Dose: 50 mg Verapamil HCl (Calan Sr) 180 mg PO BIDAC [facility] Last Admin: 08/09/16 07:27 Dose: 180 mg Discontinued Medications Acetaminophen (Tylenol) 650 mg PO Q4H PRN PRN Reason: Pain (Mild 1-3)/fever Last Admin: 07/30/16 13:16 Dose: 650 mg Alteplase, Recombinant (Cathflo Activase) 2 mg IVPUSH ONETIME ONE Stop: 07/31/16 12:31 Last Admin: 07/31/16 12:40 Dose: 2 mg Bumetanide (Bumex) 2 mg IVPUSH ONETIME ONE Stop: 07/29/16 15:16 Last Admin: 07/29/16 15:22 Dose: 2 mg Bumetanide (Bumex) 2 mg IVPUSH BIDDIURETIC [facility] Last Admin: 07/31/16 10:54 Dose: Not Given Bumetanide (Bumex) 2 mg PO BIDDIURETIC [facility] Last Admin: 08/04/16 13:22 Dose: 2 mg Bumetanide (Bumex) 2 mg IVPUSH DAILY [facility] Stop: 08/05/16 08:01 Last Admin: 08/05/16 08:37 Dose: 2 mg Bumetanide (Bumex) 2 mg PO BIDDIURETIC [facility] Last Admin: 08/06/16 13:42 Dose: 2 mg Bumetanide (Bumex) 2 mg IVPUSH BID [facility] Last Admin: 08/08/16 10:05 Dose: 2 mg Heparin Sodium (Porcine) (Heparin Lock Flush 100 Units/Ml Syringe) Confirm Administered Dose 500 units .ROUTE .STK-MED ONE Stop: 07/29/16 15:15 Last Admin: 07/29/16 15:25 Dose: 500 units Heparin Sodium (Porcine) (Heparin Lock Flush 100 Units/Ml Syringe) Confirm Administered Dose 500 units .ROUTE .STK-MED ONE Stop: 07/29/16 22:03 Last Admin: 07/29/16 22:35 Dose: 500 units Heparin Sodium (Porcine) (Heparin Lock Flush 100 Units/Ml Syringe) Confirm Administered Dose 500 units .ROUTE .STK-MED ONE Stop: 07/30/16 00:32 Last Admin: 07/30/16 10:45 Dose: Not Given Ceftazidime 1 gm/ Sodium (Chloride) 50 mls @ 100 mls/hr IV Q8H [facility] Last Admin: 08/04/16 17:32 Dose: 100 mls/hr Azithromycin 500 mg/ Sodium (Chloride) 250 mls @ 250 mls/hr IV Q24H [facility] Last Admin: 08/04/16 15:36 Dose: 250 mls/hr Sodium Chloride (Normal Saline) 500 mls @ 500 mls/hr IV .BOLUS ONE Stop: 07/30/16 17:44 Last Admin: 07/30/16 17:04 Dose: 500 mls/hr Vancomycin HCl 1.75 gm/ Sodium (Chloride) 250 mls @ 167 mls/hr IV Q12H [facility] Last Admin: 07/30/16 20:11 Dose: Not Given Sodium Chloride (Normal Saline) 500 mls @ 500 mls/hr IV .BOLUS ONE Stop: 07/30/16 19:39 Last Admin: 07/30/16 19:41 Dose: 500 mls/hr Insulin Aspart (Novolog) 15 unit SUBCUT ONETIME ONE Stop: 07/31/16 12:16 Last Admin: 07/31/16 12:27 Dose: 15 units Insulin Aspart (Novolog) 20 unit SUBCUT ONETIME ONE Stop: 08/02/16 21:09 Last Admin: 08/02/16 21:24 Dose: 20 units Insulin Aspart (Novolog) Confirm Administered Dose 300 unit .ROUTE .STK-MED ONE Stop: 08/06/16 16:55 Last Admin: 08/06/16 16:58 Dose: Not Given Insulin Detemir (Levemir) 30 unit SUBCUT BEDTIME [facility] Last Admin: 07/29/16 22:41 Dose: 30 units Insulin Detemir (Levemir) 40 unit SUBCUT BEDTIME [facility] Last Admin: 07/30/16 21:06 Dose: 40 unit Lorazepam (Ativan) 0.5 - 1 mg IV Q4H PRN PRN Reason: Nausea/Vomiting Last Admin: 08/07/16 21:46 Dose: 1 mg Methylprednisolone Sodium Succinate (Solu-Medrol) 62.5 mg IVPUSH Q8H [facility] Last Admin: 08/03/16 09:00 Dose: 62.5 mg Methylprednisolone Sodium Succinate (Solu-Medrol) 40 mg IVPUSH Q8H [facility] Last Admin: 08/05/16 10:44 Dose: 40 mg Methylprednisolone Sodium Succinate (Solu-Medrol) 40 mg IVPUSH Q12H [facility] Last Admin: 08/06/16 09:45 Dose: 40 mg Morphine Sulfate (Morphine) 4 - 8 mg IVPUSH Q4H PRN PRN Reason: Pain Last Admin: 08/03/16 00:33 Dose: 4 mg Oseltamivir Phosphate (Tamiflu) 75 mg PO BID [facility] Stop: 08/04/16 07:00 Last Admin: 08/03/16 21:49 Dose: 75 mg [facility] Last Admin: 07/30/16 09:14 Dose: 20 mg *Q Meaningful Use (DIS) - VTE *Q VTE Criteria *Q: - Stroke *Q Stroke Criteria *Q: - AMI *Q AMI Criteria *Q:
== END 2016-08-09 14:05 | disposition home health service (06) | DRG 113 ==
LOC: JP.MS 14:46
PROVIDERS: ADMIT Internal Medicine; ATTEND Hospitalist
DX: J10.1 Influenza due to other identified influenza virus with other respiratory manifestations (principal); Z87.891 Personal history of nicotine dependence; N30.00 Acute cystitis without hematuria; I11.0 Hypertensive heart disease with heart failure; I50.33 Acute on chronic diastolic (congestive) heart failure; J44.1 Chronic obstructive pulmonary disease with (acute) exacerbation; E11.9 Type 2 diabetes mellitus without complications; E53.8 Deficiency of other specified B group vitamins; F32.9 Major depressive disorder, single episode, unspecified; M06.9 Rheumatoid arthritis, unspecified; M19.90 Unspecified osteoarthritis, unspecified site; M54.9 Dorsalgia, unspecified; G89.29 Other chronic pain; K21.9 Gastro-esophageal reflux disease without esophagitis; Z99.81 Dependence on supplemental oxygen; Z87.01 Personal history of pneumonia (recurrent); H54.7 Unspecified visual loss; Z79.82 Long term (current) use of aspirin; Z79.4 Long term (current) use of insulin; Z79.84 Long term (current) use of oral hypoglycemic drugs; Z79.52 Long term (current) use of systemic steroids; Z88.1 Allergy status to other antibiotic agents; Z96.651 Presence of right artificial knee joint; I27.81 Cor pulmonale (chronic); J96.21 Acute and chronic respiratory failure with hypoxia; B96.89 Other specified bacterial agents as the cause of diseases classified elsewhere
CPT/HCPCS: 36415; 80048; 82962; 83605; 83735; 85025; 85027; 87040; 87086; 87088; 87186; 87804; 94640-76; 94664; A9270-GY; J0456; J0713; J1642; J1650; J2060; J2270; J2920; J2930; J2997; J7040; J7050; J7500; J7620; S0171

== ENCOUNTER 2016-08-16 13:45 | Emergency (ER) | payer BC, MEDICAID ==
[2016-08-16 17:26] VITALS: BP 161/74
--- NOTE | 2016-08-16 17:37 | EDM.PDOC ---
ED HISTORY OF PRESENT ILLNESS - General Chief Complaint: Respiratory Problem Stated Complaint: SHORTNESS OF BREATH Time Seen by Provider: 08/16/16 15:35 Source: Reports: Patient History Limitations: Reports: No limitations - History of Present Illness INITIAL COMMENTS - FREE TEXT/NARRATIVE: pt arrived because she was not feeling well and at this point the pt thinks she paniced. She did see Dr Gonsalez on friday and had xrays of her back and chest. She also had labs. She was placed on clindomycin to prevent any seconday infection post influ. She is not feeling worse than friday but is not feeling better. She feels at this time she should not have come in. Timing/Duration: Reports: Day(s):, Other ( staying about the same. ) Severity: moderate Location, General: Reports: chest Associated Symptoms: Reports: cough, shortness of breath, weakness - Related Data Allergies/ADRs: Allergies Allergy/AdvReac Type Severity Reaction Status Date / Time cephalexin monohydrate Allergy Unknown flusing Verified 08/16/16 14:20 [From Keflex] levofloxacin [Levofloxacin] Allergy Rash Verified 08/16/16 14:20 amoxicillin [Amoxicillin] AdvReac Vomiting Verified 08/16/16 14:20 amoxicillin trihydrate AdvReac Vomiting Verified 08/16/16 14:20 [From Augmentin] erythromycin base AdvReac Nausea and Verified 08/16/16 14:20 [Erythromycin Base] Vomiting potassium clavulanate AdvReac Vomiting Verified 08/16/16 14:20 [From Augmentin] Home Meds: Home Meds Albuterol [Ventolin HFA] 2 puff INH ASDIRECTED PRN 03/01/13 [History] Escitalopram [Lexapro] 30 mg PO BEDTIME 03/01/13 [History] Ipratropium/Albuterol Sulfate [Duoneb 0.5 MG-3 MG/3 ML] 3 ml INH QID 03/01/13 [ History] Metoprolol Succinate [Toprol XL] 25 mg PO BEDTIME 03/01/13 [History] Verapamil HCl [Verelan] 180 mg PO BIDAC 03/01/13 [History] Aspirin 81 mg PO DAILY 08/30/13 [History] Simvastatin [Zocor] 10 mg PO BEDTIME 08/30/13 [History] Magnesium Oxide 400 mg PO BID 09/01/13 [History] Lactobacillus Acidophilus [Probiotic] 1 cap PO BID 04/05/14 [History] Cyclobenzaprine [Flexeril] 10 mg PO TID PRN 09/27/14 [History] Folic Acid 1 mg PO DAILY 09/27/14 [History] metFORMIN [Glucophage] 850 mg PO BID 09/27/14 [History] Gabapentin [Neurontin] 300 mg PO BID 03/28/15 [History] Lisinopril 20 mg PO DAILY 03/28/15 [History] Oxybutynin [Oxybutynin ER] 10 mg PO DAILY 03/28/15 [History] Promethazine [Phenergan] 25 mg PO Q8H PRN 03/28/15 [History] traZODone 50 mg PO BEDTIME 03/28/15 [History] LORazepam [Ativan] 0.5 mg PO ASDIRECTED PRN 04/24/15 [History] Potassium Chloride [Klor-Con M20] 20 meq PO BID #60 tab.er 07/29/15 [Rx] Cyanocobalamin (Vitamin B12) [Vitamin B12] 1,000 mcg IM Q30D 09/26/15 [History] Ergocalciferol (Vitamin D2) [Vitamin D2] 50,000 unit PO WEEKLY 09/26/15 [History ] Ferrous Sulfate 325 mg PO DAILY 09/26/15 [History] Fluticasone/Salmeterol [Advair Diskus 500-50] 1 puff INH BID 12/05/15 [History] azaTHIOprine [Azathioprine] 150 mg PO DAILY 12/05/15 [History] ALPRAZolam [Alprazolam] 0.25 mg PO ASDIRECTED 04/12/16 [History] Isosorbide Mononitrate [Isosorbide Mononitrate ER] 30 mg PO DAILY 04/12/16 [ History] Morphine Sulfate 30 mg PO Q4H PRN 04/12/16 [History] Insulin Detemir [Levemir Flextouch] 30 units SQ BEDTIME 05/10/16 [History] Sucralfate [Carafate] 1 gm PO QIDACANDBED 05/10/16 [History] Bumetanide [Bumex] 2 mg PO BID #60 tablet 05/17/16 [Rx] Insulin Aspart [NovoLOG] 10 unit SUBCUT TIDMEALS 06/05/16 [History] Pantoprazole [Protonix] 40 mg PO DAILY 07/13/16 [History] Clotrimazole [Mycelex] 10 mg PO DAILY 07/29/16 [History] Prednisone [IJD: predniSONE] 40 mg PO WITHBREAKFAST #30 tablet 08/09/16 [Rx] Clindamycin Hcl [IMW: Clindamycin HCl] 300 mg PO TID 08/16/16 [History] Past Medical History HEENT History: Reports: Impaired vision Cardiovascular History: Reports: Hypertension, SOB on exertion, Other (see below ) Other Cardiovascular History: Extra heart beat Respiratory History: Reports: Asthma, Bronchitis, recurrent, COPD, Pneumonia, recurrent, SOB, Other (see below) Other Respiratory History: Home O2 and nebs Gastrointestinal History: Reports: Cholelithiasis, GERD, Other (see below) Other Gastrointestinal History: history of bezoars Genitourinary History: Reports: Other (see below) Other Genitourinary History: mass by bladder taken out non cancer 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: Reports: PID, Musculoskeletal History: Reports: Back pain, chronic, Osteoarthritis, RA Neurological History: Reports: Migraines Psychiatric History: Reports: Depression Endocrine/Metabolic History: Reports: Diabetes, type II, Obesity/BMI 30+ Hematologic History: Reports: B12 deficiency Immunologic History: Reports: Other (see below) Other Immunologic History: on medication that affects immunity Oncologic (Cancer) History: Reports: None Dermatologic History: Reports: None - Infectious Disease History Infectious Disease History: Reports: Chicken pox, Measles, Mumps - Past Surgical History HEENT Surgical History: Reports: Cataract surgery, Tonsillectomy, Other (see below) Other HEENT Surgeries/Procedures: implanted lens in r eye Cardiovascular Surgical History: Reports: None Respiratory Surgical History: Reports: None GI Surgical History: Reports: Cholecystectomy, Colonoscopy, EGD Female Surgical History: Reports: Hysterectomy, Tubal ligation, Other (see below) Other Female Surgeries/Procedures: Tubal plasty Endocrine Surgical History: Reports: None Neurological Surgical History: Reports: None Musculoskeletal Surgical History: Reports: Knee replacement, Other (see below) Other Musculoskeletal Surgeries/Procedures:: Right knee Dermatological Surgical History: Reports: None Social & Family History - Family History HEENT: Reports: Cataract Cardiac: Reports: CAD Respiratory: Reports: Asthma : Reports: Other (see below) Other Family History: mom kidney CA Musculoskeletal: Reports: Arthritis, RA Neurological: Reports: CVA, Seizure Endocrine/Metabolic: Reports: Diabetes, type II - Tobacco Use Smoking Status *Q: Never Smoker Years of Tobacco use: 15 Packs/Tins Daily: 1 Used Tobacco, but Quit: Yes Month Tobacco Last Used: 1981 Second Hand Smoke Exposure: No - Caffeine Use Caffeine Use: Reports: None Other Caffeine Use: 3 bottles a day - Alcohol Use Days Per Week of Alcohol Use: 0 - Recreational Drug Use Recreational Drug Use: No - Living Situation & Occupation Living situation: Reports: (lives one block from Hospital, 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 Exam Limited By: No limitations General Appearance: alert, anxious Ears: normal TMs Nose: normal inspection Throat/Mouth: Normal inspection Head: atraumatic Neck: normal inspection Respiratory/Chest: other (pt has slightly decreased breath sounds. She is not wheezy. ) Cardiovascular: regular rate, rhythm GI/Abdominal: soft, non tender Rectal (Female) Exam: Deferred Back Exam: normal inspection Extremities: normal inspection Neurological: alert, oriented, normal cognition Course - Vital Signs Last Recorded V/S: Last Vital Signs Temp 37.8 C 08/16/16 14:29 Pulse 95 08/16/16 17:25 Resp 20 08/16/16 17:25 BP 161/74 H 08/16/16 17:25 Pulse Ox 93 L 08/16/16 17:25 - Re-Assessments/Exams Free Text/Narrative Re-Assessment/Exam: 08/16/16 17:39 A discussion was held with pt and at this point she thinks she paniced and is wanting to go home and see what happens. She clearly does not fee that she is worse. She is on clindomycin at this time. She does not wish for me to get lab work and another chest xray. If she is not improving she will return and we can then work her up. She has good o2 sats at this time. Departure - Departure Time of Disposition: 17:41 Disposition: Home, Self-Care 01 Condition: fair Clinical Impression: COPD (chronic obstructive pulmonary disease) Forms: ED Department Discharge Care Plan Goals: rtc if pt develops further symptoms.
== END 2016-08-16 18:03 | disposition home or self-care (01) ==
LOC: JP.ED 13:45
DX: J44.9 Chronic obstructive pulmonary disease, unspecified (principal); K21.9 Gastro-esophageal reflux disease without esophagitis; M19.90 Unspecified osteoarthritis, unspecified site; M06.9 Rheumatoid arthritis, unspecified; F32.9 Major depressive disorder, single episode, unspecified; E11.9 Type 2 diabetes mellitus without complications; E66.9 Obesity, unspecified; I10 Essential (primary) hypertension; J45.909 Unspecified asthma, uncomplicated; Z87.01 Personal history of pneumonia (recurrent); Z98.49 Cataract extraction status, unspecified eye; Z98.890 Other specified postprocedural states; Z90.49 Acquired absence of other specified parts of digestive tract; Z98.51 Tubal ligation status; Z90.710 Acquired absence of both cervix and uterus; Z79.82 Long term (current) use of aspirin; Z79.84 Long term (current) use of oral hypoglycemic drugs; Z79.4 Long term (current) use of insulin; Z79.899 Other long term (current) drug therapy; Z88.1 Allergy status to other antibiotic agents; Z88.8 Allergy status to other drugs, medicaments and biological substances
CPT/HCPCS: 99285

== ENCOUNTER 2016-08-22 10:38 | Inpatient (IN) | payer BC, MEDICAID ==
--- NOTE | 2016-08-22 11:13 | EDM.PDOC ---
[id number]: TROUBLE BREATHING Time Seen by Provider: 08/22/16 10:45 Source: Reports: Patient, Family History Limitations: Reports: No limitations - History of Present Illness INITIAL COMMENTS - FREE TEXT/NARRATIVE: 60-year-old female with chronic COPD has had a marked increase in symptoms over the past 12-14 hours. Very short of breath resistant to her nebulizers. No fevers or chills, she does have some cough with scant productive of sputum. She thinks she may have run a low-grade fever a couple days ago. She saw her primary care provider last week, x-rays were done the lungs and back and she was started on clindamycin. A chest x-ray was unchanged showing no acute findings. Her BiPAP at home doesn't seem to be working appropriately, her oxygen level actually falls while she is using the BiPAP. Severity: moderate Improves with: Reports: Other (Oxygen helps) Worsens with: Reports: Movement (Very little activity tolerance) Associated Symptoms: Reports: chest pain, cough, malaise. Denies: nausea/ vomiting Treatment(s) QUALITY ASSURANCE TECH: Reports: Other (see below) (Patient is currently on doxycycline and took a nebulizer treatment just before coming in) - Related Data Allergies/ADRs: Allergies Allergy/AdvReac Type Severity Reaction Status Date / Time cephalexin monohydrate Allergy Unknown flusing Verified 08/16/16 14:20 [From Keflex] levofloxacin [Levofloxacin] Allergy Rash Verified 08/16/16 14:20 amoxicillin [Amoxicillin] AdvReac Vomiting Verified 08/16/16 14:20 amoxicillin trihydrate AdvReac Vomiting Verified 08/16/16 14:20 [From Augmentin] erythromycin base AdvReac Nausea and Verified 08/16/16 14:20 [Erythromycin Base] Vomiting potassium clavulanate AdvReac Vomiting Verified 08/16/16 14:20 [From Augmentin] Home Meds: Home Meds Albuterol [Ventolin HFA] 2 puff INH ASDIRECTED PRN 03/01/13 [History] Escitalopram [Lexapro] 30 mg PO BEDTIME 03/01/13 [History] Ipratropium/Albuterol Sulfate [Duoneb 0.5 MG-3 MG/3 ML] 3 ml INH QID 03/01/13 [ History] Metoprolol Succinate [Toprol XL] 25 mg PO BEDTIME 03/01/13 [History] Verapamil HCl [Verelan] 180 mg PO BIDAC 03/01/13 [History] Aspirin 81 mg PO DAILY 08/30/13 [History] Simvastatin [Zocor] 10 mg PO BEDTIME 08/30/13 [History] Magnesium Oxide 400 mg PO BID 09/01/13 [History] Lactobacillus Acidophilus [Probiotic] 1 cap PO BID 04/05/14 [History] Cyclobenzaprine [Flexeril] 10 mg PO TID PRN 09/27/14 [History] Folic Acid 1 mg PO DAILY 09/27/14 [History] metFORMIN [Glucophage] 850 mg PO BID 09/27/14 [History] Gabapentin [Neurontin] 300 mg PO BID 03/28/15 [History] Lisinopril 20 mg PO DAILY 03/28/15 [History] Oxybutynin [Oxybutynin ER] 10 mg PO DAILY 03/28/15 [History] Promethazine [Phenergan] 25 mg PO Q8H PRN 03/28/15 [History] traZODone 50 mg PO BEDTIME 03/28/15 [History] LORazepam [Ativan] 0.5 mg PO ASDIRECTED PRN 04/24/15 [History] Potassium Chloride [Klor-Con M20] 20 meq PO BID #60 tab.er 07/29/15 [Rx] Cyanocobalamin (Vitamin B12) [Vitamin B12] 1,000 mcg IM Q30D 09/26/15 [History] Ergocalciferol (Vitamin D2) [Vitamin D2] 50,000 unit PO WEEKLY 09/26/15 [History ] Ferrous Sulfate 325 mg PO DAILY 09/26/15 [History] Fluticasone/Salmeterol [Advair Diskus 500-50] 1 puff INH BID 12/05/15 [History] azaTHIOprine [Azathioprine] 150 mg PO DAILY 12/05/15 [History] ALPRAZolam [Alprazolam] 0.25 mg PO ASDIRECTED 04/12/16 [History] Isosorbide Mononitrate [Isosorbide Mononitrate ER] 30 mg PO DAILY 04/12/16 [ History] Morphine Sulfate 30 mg PO Q4H PRN 04/12/16 [History] Insulin Detemir [Levemir Flextouch] 30 units SQ BEDTIME 05/10/16 [History] Sucralfate [Carafate] 1 gm PO QIDACANDBED 05/10/16 [History] Bumetanide [Bumex] 2 mg PO BID #60 tablet 05/17/16 [Rx] Insulin Aspart [NovoLOG] 10 unit SUBCUT TIDMEALS 06/05/16 [History] Pantoprazole [Protonix] 40 mg PO DAILY 07/13/16 [History] Clotrimazole [Mycelex] 10 mg PO DAILY 07/29/16 [History] Clindamycin Hcl [IMW: Clindamycin HCl] 300 mg PO TID 08/16/16 [History] Prednisone [IJD: predniSONE] 20 mg PO WITHBREAKFAST 08/22/16 [History] Past Medical History HEENT History: Reports: Impaired vision Cardiovascular History: Reports: Hypertension, SOB on exertion, Other (see below ) Other Cardiovascular History: Extra heart beat Respiratory History: Reports: Asthma, Bronchitis, recurrent, COPD, Pneumonia, recurrent, SOB, Other (see below) Other Respiratory History: Home O2 and nebs Gastrointestinal History: Reports: Cholelithiasis, GERD, Other (see below) Other Gastrointestinal History: history of bezoars Genitourinary History: Reports: Other (see below) Other Genitourinary History: mass by bladder taken out non cancer 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: 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, Musculoskeletal History: Reports: Back pain, chronic, Osteoarthritis, RA Neurological History: Reports: Migraines Psychiatric History: Reports: Depression Endocrine/Metabolic History: Reports: Diabetes, type II, Obesity/BMI 30+ Hematologic History: Reports: B12 deficiency Immunologic History: Reports: Other (see below) Other Immunologic History: on medication that affects immunity Oncologic (Cancer) History: Reports: None Dermatologic History: Reports: None - Infectious Disease History Infectious Disease History: Reports: Chicken pox, Measles, Mumps - Past Surgical History HEENT Surgical History: Reports: Cataract surgery, Tonsillectomy, Other (see below) Other HEENT Surgeries/Procedures: implanted lens in r eye Cardiovascular Surgical History: Reports: None Respiratory Surgical History: Reports: None GI Surgical History: Reports: Cholecystectomy, Colonoscopy, EGD Female Surgical History: Reports: Hysterectomy, Tubal ligation, Other (see below) Other Female Surgeries/Procedures: Tubal plasty Endocrine Surgical History: Reports: None Neurological Surgical History: Reports: None Musculoskeletal Surgical History: Reports: Knee replacement, Other (see below) Other Musculoskeletal Surgeries/Procedures:: Right knee Dermatological Surgical History: Reports: None Social & Family History - Family History HEENT: Reports: Cataract Cardiac: Reports: CAD Respiratory: Reports: Asthma : Reports: Other (see below) Other Family History: mom kidney CA Musculoskeletal: Reports: Arthritis, RA Neurological: Reports: CVA, Seizure Endocrine/Metabolic: Reports: Diabetes, type II - Tobacco Use Smoking Status *Q: Never Smoker Years of Tobacco use: 15 Packs/Tins Daily: 1 Used Tobacco, but Quit: Yes Month Tobacco Last Used: 1981 Second Hand Smoke Exposure: No - Caffeine Use Caffeine Use: Reports: None Other Caffeine Use: 3 bottles a day - Alcohol Use Days Per Week of Alcohol Use: 0 - Recreational Drug Use Recreational Drug Use: No - Living Situation & Occupation Living situation: Reports: (lives [place] block from Hospital, 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 Denies: chills HEENT: Reports: No symptoms Respiratory: Reports: Shortness of Breath, Cough, Sputum Cardiovascular: Reports: Chest pain GI/Abdominal: Denies: Abdominal pain : Reports: no symptoms Musculoskeletal: Reports: back pain Neurological: Denies: Headache, Syncope Psychiatric: Reports: Anxiety ED EXAM, GENERAL - Physical Exam Exam: See Below Exam Limited By: No limitations General Appearance: alert, mild distress Respiratory/Chest: respiratory distress (Mild to moderate respiratory distress, diffuse expiratory wheezes) Cardiovascular: regular rate, rhythm Neurological: alert, oriented Psychiatric: anxious Skin Exam: Warm, Dry Course - Vital Signs Last Recorded V/S: Last Vital Signs Temp 99.1 F 08/22/16 13:53 Pulse 92 08/22/16 13:53 Resp 24 H 08/22/16 13:53 BP 202/99 H 08/22/16 13:53 Pulse Ox 94 L 08/22/16 11:52 - Orders/Labs/Meds Orders: Medication Orders Acetaminophen (Tylenol) 650 mg PO Q4H PRN PRN Reason: Pain (Mild 1-3)/fever Albuterol (Proventil Neb Soln) 2.5 mg NEB Q4H PRN PRN Reason: Shortness Of Breath/wheezing Albuterol/Ipratropium (Duoneb 3.0-0.5 Mg/3 Ml) 3 ml INH QIDRT [facility] Aspirin (Aspirin) 81 mg PO DAILY [facility] Azathioprine (Imuran) 150 mg PO DAILY [facility] Bumetanide (Bumex) 2 mg PO BIDDIURETIC [facility] Clindamycin HCl (Cleocin) 300 mg PO TID [facility] Cyclobenzaprine HCl (Flexeril) 10 mg PO TID PRN PRN Reason: Pain Dextrose (Glutose 15) 15 gm PO ONETIME PRN PRN Reason: Hypoglycemia Dextrose/Water (Dextrose 50% In Water) 50 ml IV ONETIME PRN PRN Reason: Hypoglycemia Docusate Sodium (Colace) 100 mg PO BID PRN PRN Reason: Constipation Enoxaparin Sodium (Lovenox) 40 mg SUBCUT Q24H [facility] Escitalopram Oxalate (Lexapro) 30 mg PO BEDTIME [facility] Gabapentin (Neurontin) 300 mg PO BID [facility] Hydromorphone HCl (Dilaudid) 0.5 mg IVPUSH Q4H PRN PRN Reason: Pain Insulin Aspart (Novolog) 10 unit SUBCUT TIDMEALS [facility] Insulin Aspart (Novolog) 0 unit SUBCUT ASDIRECTED [facility] PRN Reason: Protocol Insulin Detemir (Levemir) 30 unit SUBCUT BEDTIME [facility] Isosorbide Mononitrate (Imdur) 30 mg PO DAILY [facility] Lactobacillus Rhamnosus (Culturelle) 1 cap PO BID [facility] Lisinopril (Prinivil) 20 mg PO DAILY [facility] Lorazepam (Ativan) 0.5 mg PO Q4H PRN PRN Reason: Anxiety Magnesium Hydroxide (Milk Of Magnesia) 30 ml PO Q12H PRN PRN Reason: Constipation Magnesium Oxide (Magnesium Oxide) 400 mg PO BID [facility] Metformin HCl (Glucophage) 850 mg PO BIDMEALS [facility] Methylprednisolone Sodium Succinate (Solu-Medrol) 40 mg IVPUSH Q6H [facility] Metoprolol Succinate (Toprol Xl) 25 mg PO BEDTIME [facility] Morphine Sulfate (Morphine) 30 mg PO Q4H PRN PRN Reason: PAIN Last Admin: 08/22/16 14:23 Dose: 30 mg Non-Formulary Medication (Fluticasone/Salmeterol [Advair Diskus 500-50]) 1 puff INH BID [facility] Non-Formulary Medication (Verapamil Hcl [Verelan]) 180 mg PO BIDAC [facility] Ondansetron HCl (Zofran) 4 mg IV Q4H PRN PRN Reason: Nausea/Vomiting Oxybutynin Chloride (Oxybutynin) 5 mg PO BID [facility] Pantoprazole Sodium (Protonix) 40 mg PO DAILY [facility] Polyethylene Glycol (Miralax) 17 gm PO DAILY PRN PRN Reason: Constipation Potassium Chloride (Klor-Con M20) 20 meq PO BID [facility] Simvastatin (Zocor) 10 mg PO BEDTIME [facility] Sodium Chloride (Saline Flush) 10 ml FLUSH ASDIRECTED PRN PRN Reason: Keep Vein Open Sucralfate (Carafate) 1 gm PO QIDACANDBED [facility] Trazodone HCl (Trazodone) 50 mg PO BEDTIME [facility] Labs: Laboratory Tests 08/22/16 08/22/16 08/22/16 Range/Units 10:59 11:19 11:19 WBC 7.7 (4.5-11.0) K/uL RBC 4.18 (3.30-5.50) M/uL Hgb 10.8 L (12.0-15.0) g/dL Hct 36.8 (36.0-48.0) % MCV 88 (80-98) fL MCH 26 L (27-31) pg MCHC 29 L (32-36) % Plt Count 203 (150-400) K/uL Neut % (Auto) 72 H (36-66) % Lymph % (Auto) 18 L (24-44) % Cook % (Auto) 8 H (2-6) % Eos % (Auto) 2 (2-4) % Baso % (Auto) 0 (0-1) % Puncture Site Lt radial ABG pH 7.399 (7.350-7.450) ABG pCO2 52.1 H (35.0-42.0) mmHg ABG pO2 56.2 L (75.0-100.0) mmHg ABG HCO3 31.5 H (22.0-26.0) mmol/L ABG Total CO2 29.1 H (21.0-25.0) mmol/L ABG O2 Saturation 87.3 L (95.0-98.0) % ABG O2 Content 13.0 L (15.0-23.0) %vol ABG Base Excess 6.1 mm/L ABG Hemoglobin 10.8 L (12.0-16.0) g/dL ABG Oxyhemoglobin 85.6 % ABG Carboxyhemoglobin 1.0 (0.0-1.6) % ABG Methemoglobin 0.9 % You Test Passed O2 Delivery Device Nasal cannula Oxygen Flow Rate 3 L Sodium 146 (140-148) mmol/L Potassium 3.7 (3.6-5.2) mmol/L Chloride 104 (100-108) mmol/L Carbon Dioxide 34 H (21-32) mmol/L Anion Gap 11.7 (5.0-14.0) mmol/L BUN 11 D (7-18) mg/dL Creatinine 0.7 (0.6-1.0) mg/dL Est Cr Clr Drug Dosing TNP Estimated GFR (MDRD) > 60 (>60) Glucose 317 H (74-106) mg/dL Calcium 8.2 L (8.5-10.1) mg/dL Meds: Medications Generic Name Dose Route Start Last Admin Trade Name Freq PRN Reason Stop Dose Admin Acetaminophen 650 mg 08/22/16 14:11 Tylenol PO Q4H PRN Pain (Mild 1-3)/fever Albuterol 2.5 mg 08/22/16 14:11 Proventil Neb Soln NEB Q4H PRN Shortness Of Breath/wheezing Albuterol/Ipratropium 3 ml 08/22/16 15:00 Duoneb 3.0-0.5 Mg/3 Ml INH QIDRT [facility] Aspirin 81 mg 08/23/16 09:00 Aspirin PO DAILY [facility] Azathioprine 150 mg 08/23/16 09:00 Imuran PO DAILY [facility] Bumetanide 2 mg 08/22/16 16:00 Bumex PO BIDDIURETIC [facility] Clindamycin HCl 300 mg 08/22/16 16:00 Cleocin PO TID [facility] Cyclobenzaprine HCl 10 mg 08/22/16 14:11 Flexeril PO TID PRN Pain Dextrose 15 gm 08/22/16 14:11 Glutose 15 PO ONETIME PRN Hypoglycemia Dextrose/Water 50 ml 08/22/16 14:11 Dextrose 50% In Water IV ONETIME PRN Hypoglycemia Docusate Sodium 100 mg 08/22/16 14:11 Colace PO BID PRN Constipation Enoxaparin Sodium 40 mg 08/22/16 16:00 Lovenox SUBCUT Q24H [facility] Escitalopram Oxalate 30 mg 08/22/16 21:00 Lexapro PO BEDTIME [facility] Gabapentin 300 mg 08/22/16 21:00 Neurontin PO BID [facility] Hydromorphone HCl 0.5 mg 08/22/16 14:11 Dilaudid IVPUSH Q4H PRN Pain Insulin Aspart 10 unit 08/22/16 17:00 Novolog SUBCUT TIDMEALS [facility] Insulin Aspart 0 unit 08/22/16 14:11 Novolog SUBCUT ASDIRECTED [facility] Protocol Insulin Detemir 30 unit 08/22/16 21:00 Levemir SUBCUT BEDTIME [facility] Isosorbide Mononitrate 30 mg 08/23/16 09:00 Imdur PO DAILY [facility] Lactobacillus Rhamnosus 1 cap 08/22/16 21:00 Culturelle PO BID [facility] Lisinopril 20 mg 08/23/16 09:00 Prinivil PO DAILY [facility] Lorazepam 0.5 mg 08/22/16 14:11 Ativan PO Q4H PRN Anxiety Magnesium Hydroxide 30 ml 08/22/16 14:11 Milk Of Magnesia PO Q12H PRN Constipation Magnesium Oxide 400 mg 08/22/16 21:00 Magnesium Oxide PO BID [facility] Metformin HCl 850 mg 08/22/16 17:00 Glucophage PO BIDMEALS [facility] Methylprednisolone Sodium Succinate 40 mg 08/22/16 18:00 Solu-Medrol IVPUSH Q6H [facility] Metoprolol Succinate 25 mg 08/22/16 21:00 Toprol Xl PO BEDTIME [facility] Morphine Sulfate 30 mg 08/22/16 14:06 08/22/16 14:23 Morphine PO 30 mg Q4H PRN Administration PAIN Non-Formulary Medication 1 puff 08/22/16 21:00 Fluticasone/Salmeterol [Advair Diskus 500-50] INH BID [facility] Non-Formulary Medication 180 mg 08/22/16 16:30 Verapamil Hcl [Verelan] PO BIDAC [facility] Ondansetron HCl 4 mg 08/22/16 14:11 Zofran IV Q4H PRN Nausea/Vomiting Oxybutynin Chloride 5 mg 08/23/16 09:00 Oxybutynin PO BID [facility] Pantoprazole Sodium 40 mg 08/23/16 09:00 Protonix PO DAILY [facility] Polyethylene Glycol 17 gm 08/22/16 14:11 Miralax PO DAILY PRN Constipation Potassium Chloride 20 meq 08/22/16 21:00 Klor-Con M20 PO BID [facility] Simvastatin 10 mg 08/22/16 21:00 Zocor PO BEDTIME [facility] Sodium Chloride 10 ml 08/22/16 14:11 Saline Flush FLUSH ASDIRECTED PRN Keep Vein Open Sucralfate 1 gm 08/22/16 17:00 Carafate PO QIDACANDBED [facility] Trazodone HCl 50 mg 08/22/16 21:00 Trazodone PO BEDTIME [facility] Discontinued Medications Generic Name Dose Route Start Last Admin Trade Name Freq PRN Reason Stop Dose Admin Methylprednisolone Sodium Succinate 125 mg 08/22/16 11:45 08/22/16 12:03 Solu-Medrol IVPUSH 08/22/16 11:46 125 mg ONETIME ONE Administration - Re-Assessments/Exams Free Text/Narrative Re-Assessment/Exam: 08/22/16 11:47 White count was normal, hemoglobin 10.8. ABGs revealed a PO2 of 56, PCO2 of 52 , both of these are somewhat worse than they typically are on her arrival after a COPD flare up. Chest x-ray shows some possible increased vascular congestion but no infiltrate. Changes may be just technical as it is an AP view. Patient was given 125 mg of Solu-Medrol IV, I discussed her condition with Dr. Hemphill who agreed to see her for consideration of admission. Departure - Departure Time of Disposition: 13:40 Disposition: Admitted As Inpatient 64 Condition: fair Clinical Impression: COPD (chronic obstructive pulmonary disease) Qualifiers: COPD type: COPD with acute exacerbation Qualified Code(s): J44.1 - Chronic obstructive pulmonary disease with (acute) exacerbation
[2016-08-22] MEDS ORDERED: methylPREDNISolone Sodium Succinate 125 MG/2 ML SDV IVPUSH ONE (11:45)
--- NOTE | 2016-08-22 12:29 | CR ---
Mild-moderate cardiomegaly. Vascular congestion. No pleural effusion or airspace disease. Left subcl renny catheter.
[2016-08-22] MEDS ORDERED: Polyethylene Glycol 3350 Powder 17 GM Packet PO PRN (14:11)
[2016-08-22] MEDS ORDERED: 50% Dextrose in Water 50 ML Syringe IV PRN (14:11)
[2016-08-22] MEDS ORDERED: Insulin Aspart 100 Units/ML 3 ML Pen SUBCUT PRN (14:11)
[2016-08-22] MEDS ORDERED: Cyclobenzaprine 10 MG Tab PO PRN (14:11)
[2016-08-22] MEDS ORDERED: Ondansetron 4 MG/2 ML SDV IV PRN (14:11)
[2016-08-22] MEDS ORDERED: Magnesium Hydroxide 400 MG/5 ML Susp 30 ML Cup PO PRN (14:11)
[2016-08-22] MEDS ORDERED: Sodium Chloride 0.9% 10 ML Syringe FLUSH PRN (14:11)
[2016-08-22] MEDS ORDERED: Glucose Gel 15 GM in 37.5 GM Tube PO PRN (14:11)
[2016-08-22] MEDS ORDERED: Docusate Sodium 100 MG Cap PO PRN (14:11)
[2016-08-22] MEDS ORDERED: Morphine 15 MG Tab PO PRN (14:11)
[2016-08-22] MEDS ORDERED: Albuterol 0.083% 2.5 MG/3 ML Neb Soln NEB PRN (14:11)
--- NOTE | 2016-08-22 14:58 | PCM.HP ---
H&P History of Present Illness - General Date of Service: 08/22/16 Admit Problem/Dx: Source of Information: Patient, Old records, Provider, RN notes reviewed History Limitations: Reports: No limitations - History of Present Illness Initial Comments - Free Text/Narative: Dipti is a 60-year-old woman was admitted through the emergency department with increased shortness of breath and hypoxia secondary to COPD exacerbation. She does have known severe underlying pulmonary disease which is thought to be secondary to her long-standing rheumatoid arthritis. She has had multiple previous admissions for similar symptoms. Over the past few days has had increased shortness of breath. She has not noted significant fevers or chills but has had regular episodes of diaphoresis which is fairly common for her. Blood sugars have been under good control over the past week. Chest x-ray does not show evidence of significant infiltrate. - Related Data Allergies/Adverse Reactions: Allergies Allergy/AdvReac Type Severity Reaction Status Date / Time cephalexin monohydrate Allergy Unknown flusing Verified 08/16/16 14:20 [From Keflex] levofloxacin [Levofloxacin] Allergy Rash Verified 08/16/16 14:20 amoxicillin [Amoxicillin] AdvReac Vomiting Verified 08/16/16 14:20 amoxicillin trihydrate AdvReac Vomiting Verified 08/16/16 14:20 [From Augmentin] erythromycin base AdvReac Nausea and Verified 08/16/16 14:20 [Erythromycin Base] Vomiting potassium clavulanate AdvReac Vomiting Verified 08/16/16 14:20 [From Augmentin] Home Medications: Home Meds Albuterol [Ventolin HFA] 2 puff INH ASDIRECTED PRN 03/01/13 [History] Escitalopram [Lexapro] 30 mg PO BEDTIME 03/01/13 [History] Ipratropium/Albuterol Sulfate [Duoneb 0.5 MG-3 MG/3 ML] 3 ml INH QID 03/01/13 [ History] Metoprolol Succinate [Toprol XL] 25 mg PO BEDTIME 03/01/13 [History] Verapamil HCl [Verelan] 180 mg PO BIDAC 03/01/13 [History] Aspirin 81 mg PO DAILY 08/30/13 [History] Simvastatin [Zocor] 10 mg PO BEDTIME 08/30/13 [History] Magnesium Oxide 400 mg PO BID 04/02/14 [History] Lactobacillus Acidophilus [Probiotic] 1 cap PO BID 04/05/14 [History] Cyclobenzaprine [Flexeril] 10 mg PO TID PRN 09/27/14 [History] Folic Acid 1 mg PO DAILY 09/27/14 [History] metFORMIN [Glucophage] 850 mg PO BID 09/27/14 [History] Gabapentin [Neurontin] 300 mg PO BID 03/28/15 [History] Lisinopril 20 mg PO DAILY 03/28/15 [History] Oxybutynin [Oxybutynin ER] 10 mg PO DAILY 03/28/15 [History] Promethazine [Phenergan] 25 mg PO Q8H PRN 03/28/15 [History] traZODone 50 mg PO BEDTIME 03/28/15 [History] LORazepam [Ativan] 0.5 mg PO ASDIRECTED PRN 04/24/15 [History] Potassium Chloride [Klor-Con M20] 20 meq PO BID #60 tab.er 07/29/15 [Rx] Cyanocobalamin (Vitamin B12) [Vitamin B12] 1,000 mcg IM Q30D 09/26/15 [History] Ergocalciferol (Vitamin D2) [Vitamin D2] 50,000 unit PO WEEKLY 09/26/15 [History ] Ferrous Sulfate 325 mg PO DAILY 09/26/15 [History] Fluticasone/Salmeterol [Advair Diskus 500-50] 1 puff INH BID 12/05/15 [History] azaTHIOprine [Azathioprine] 150 mg PO DAILY 12/05/15 [History] ALPRAZolam [Alprazolam] 0.25 mg PO ASDIRECTED 04/12/16 [History] Isosorbide Mononitrate [Isosorbide Mononitrate ER] 30 mg PO DAILY 04/12/16 [ History] Morphine Sulfate 30 mg PO Q4H PRN 04/12/16 [History] Insulin Detemir [Levemir Flextouch] 30 units SQ BEDTIME 05/10/16 [History] Sucralfate [Carafate] 1 gm PO QIDACANDBED 05/10/16 [History] Bumetanide [Bumex] 2 mg PO BID #60 tablet 05/17/16 [Rx] Insulin Aspart [NovoLOG] 10 unit SUBCUT TIDMEALS 06/05/16 [History] Pantoprazole [Protonix] 40 mg PO DAILY 07/13/16 [History] Clotrimazole [Mycelex] 10 mg PO DAILY 07/29/16 [History] Clindamycin Hcl [IMW: Clindamycin HCl] 300 mg PO TID 08/16/16 [History] Prednisone [IJD: predniSONE] 20 mg PO WITHBREAKFAST 08/22/16 [History] Past Medical History HEENT History: Reports: Impaired vision Cardiovascular History: Reports: Hypertension, SOB on exertion, Other (see below ) Other Cardiovascular History: Extra heart beat Respiratory History: Reports: Asthma, Bronchitis, recurrent, COPD, Pneumonia, recurrent, SOB, Other (see below) Other Respiratory History: Home O2 and nebs Gastrointestinal History: Reports: Cholelithiasis, GERD, Other (see below) Other Gastrointestinal History: history of bezoars Genitourinary History: Reports: Other (see below) Other Genitourinary History: mass by bladder taken out non cancer [employer]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, Musculoskeletal History: Reports: Back pain, chronic, Osteoarthritis, RA Neurological History: Reports: Migraines Psychiatric History: Reports: Depression Endocrine/Metabolic History: Reports: Diabetes, type II, Obesity/BMI 30+ Hematologic History: Reports: B12 deficiency Immunologic History: Reports: Other (see below) Other Immunologic History: on medication that affects immunity Oncologic (Cancer) History: Reports: None Dermatologic History: Reports: None - Infectious Disease History Infectious Disease History: Reports: Chicken pox, Measles, Mumps - Past Surgical History HEENT Surgical History: Reports: Cataract surgery, Tonsillectomy, Other (see below) Other HEENT Surgeries/Procedures: implanted lens in r eye Cardiovascular Surgical History: Reports: None Respiratory Surgical History: Reports: None GI Surgical History: Reports: Cholecystectomy, Colonoscopy, EGD Female Surgical History: Reports: Hysterectomy, Tubal ligation, Other (see below) Other Female Surgeries/Procedures: Tubal plasty Endocrine Surgical History: Reports: None Neurological Surgical History: Reports: None Musculoskeletal Surgical History: Reports: Knee replacement, Other (see below) Other Musculoskeletal Surgeries/Procedures:: Right knee Dermatological Surgical History: Reports: None Social & Family History - Family History HEENT: Reports: Cataract Cardiac: Reports: CAD Respiratory: Reports: Asthma : Reports: Other (see below) Other Family History: mom kidney CA Musculoskeletal: Reports: Arthritis, RA Neurological: Reports: CVA, Seizure Endocrine/Metabolic: Reports: Diabetes, type II - Tobacco Use Smoking Status *Q: Never Smoker Years of Tobacco use: 15 Packs/Tins Daily: 1 Used Tobacco, but Quit: Yes Month Tobacco Last Used: 1981 Second Hand Smoke Exposure: No - Caffeine Use Caffeine Use: Reports: None Other Caffeine Use: 3 bottles a day - Alcohol Use Days Per Week of Alcohol Use: 0 - Recreational Drug Use Recreational Drug Use: No - Living Situation & Occupation Living situation: Reports: (lives one block from Hospital, 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 Denies: fever, chills HEENT: Reports: no symptoms Pulmonary: Reports: Shortness of Breath, Wheezing. Denies: Pleuritic Chest Pain , Cough, Sputum, Hemoptysis Cardiovascular: Reports: dyspnea on exertion. Denies: chest pain, palpitations , orthopnea, PND, edema, lightheadedness, syncope Gastrointestinal: Reports: No symptoms Genitourinary: Reports: no symptoms Musculoskeletal: Reports: back pain Skin: Reports: no symptoms Psychiatric: Reports: no symptoms Neurological: Reports: No Symptoms Hematologic/Lymphatic: Reports: no symptoms Immunologic: Reports: no symptoms Exam - Exam Exam: See Below - Vital Signs Vital Signs: Last Vital Signs Temp 99.1 F 08/22/16 13:53 Pulse 92 08/22/16 13:53 Resp 24 H 08/22/16 13:53 BP 202/99 H 08/22/16 13:53 Pulse Ox 94 L 08/22/16 11:52 Weight: 302 lb 0.533 oz - Exam Quality Assessment: supplemental oxygen, DVT prophylaxis General: alert, oriented, cooperative, mild distress HEENT: Conjunctiva clear, Hearing intact, Mucosa moist & pink, Nares patent, Normal nasal septum, Posterior pharynx clear, Pupils equal, Pupils reactive Neck: supple, trachea midline, +2 carotid pulse wo bruit Lungs: Normal respiratory effort, Decreased breath sounds. No: Crackles, Rales , Rhonchi, Rub, Stridor, Wheezing Cardiovascular: regular rate, regular rhythm, normal S1, normal S2 Abdomen: normal bowel sounds, soft Back Exam: normal inspection, full range of motion, NT Extremities: edema. No: clubbing, cyanosis, calf tenderness, increased warmth Skin: warm, dry, intact Neurological: cranial nerves intact, strength equal bilateral, normal speech, normal tone, sensation intact. No: focal deficit Neuro Extensive - Mental Status: alert, oriented x3, normal mood/affect, normal cognition, memory intact - Patient Data Result Diagrams: 08/22/16 11:19 08/22/16 11:19 *Q Meaningful Use (ADM) - VTE *Q VTE Criteria *Q: - VTE Risk Assess *Q Each Risk Factor Represents 1 Point: None, Swollen Legs, Current, Abnormal Pulmonary Function (COPD) Total Score 1 Point Risk Factors: 2 Each Risk Factor Represents 2 Points: Age 60 - 74 Years, Morbid Obesity (BMI Greater than 40) Total Score 2 Point Risk Factors: 4 Each Risk Factor Represents 3 Points: None Total Score 3 Point Risk Factors: 0 Each Risk Factor Represents 5 Points: None Total Score 5 Point Risk Factors: 0 Venous Thromboembolism Risk Factor Score *Q: 6 - Stroke *Q Stroke Criteria *Q: - AMI *Q AMI Criteria *Q: Problem List Initiated/Reviewed/Updated: Yes Orders Last 24hrs: Active Orders 24 hr Category Date Time Status Patient Status [ADT] Routine ADT 08/22/16 14:11 Active Blood Glucose Check, Bedside [RC] QIDACANDBED Care 08/22/16 14:11 Active Communication Order [RC] ASDIRECTED Care 08/22/16 14:11 Active Intake and Output [RC] QSHIFT Care 08/22/16 14:11 Active Notify Provider Vital Signs [RC] ASDIRECTED Care 08/22/16 14:11 Active Notify Provider [RC] PRN Care 08/22/16 14:11 Active Oxygen Therapy [RC] PRN Care 08/22/16 14:11 Active RT Aerosol Therapy [RC] ASDIRECTED Care 08/22/16 14:11 Active Up With Assistance [RC] ASDIRECTED Care 08/22/16 14:11 Active VTE/DVT Education [RC] Per Unit Routine Care 08/22/16 14:11 Active Vital Signs [RC] Q4H Care 08/22/16 14:11 Active PT Evaluation and Treatment [CONS] Routine Cons 08/22/16 14:11 Active 2 Gram Sodium Diet [DIET] Diet 08/22/16 Lunch Active BASIC METABOLIC PANEL,BMP [CHEM] AM Lab 08/23/16 05:11 Ordered CBC WITH AUTO DIFF [HEME] AM Lab 08/23/16 05:11 Ordered CULTURE RESPIRATORY + SMEAR [RM] Stat Lab 08/22/16 14:11 Uncollected GLUCOSE POC LAB TO COLLECT [POC] QIDACANDBED Lab 08/22/16 16:30 Ordered GLUCOSE POC LAB TO COLLECT [POC] QIDACANDBED Lab 08/22/16 21:00 Ordered GLUCOSE POC LAB TO COLLECT [POC] QIDACANDBED Lab 08/23/16 07:30 Ordered GLUCOSE POC LAB TO COLLECT [POC] QIDACANDBED Lab 08/23/16 11:30 Ordered GLUCOSE POC LAB TO COLLECT [POC] QIDACANDBED Lab 08/23/16 16:30 Ordered GLUCOSE POC LAB TO COLLECT [POC] QIDACANDBED Lab 08/23/16 21:00 Ordered GLUCOSE POC LAB TO COLLECT [POC] QIDACANDBED Lab 08/24/16 07:30 Ordered GLUCOSE POC LAB TO COLLECT [POC] QIDACANDBED Lab 08/24/16 11:30 Ordered GLUCOSE POC LAB TO COLLECT [POC] QIDACANDBED Lab 08/24/16 16:30 Ordered GLUCOSE POC LAB TO COLLECT [POC] QIDACANDBED Lab 08/24/16 21:00 Ordered GLUCOSE POC LAB TO COLLECT [POC] QIDACANDBED Lab 08/25/16 07:30 Ordered GLUCOSE POC LAB TO COLLECT [POC] QIDACANDBED Lab 08/25/16 11:30 Ordered GLUCOSE POC LAB TO COLLECT [POC] QIDACANDBED Lab 08/25/16 16:30 Ordered GLUCOSE POC LAB TO COLLECT [POC] QIDACANDBED Lab 08/25/16 21:00 Ordered GLUCOSE POC LAB TO COLLECT [POC] QIDACANDBED Lab 08/26/16 07:30 Ordered GLUCOSE POC LAB TO COLLECT [POC] QIDACANDBED Lab 08/26/16 11:30 Ordered GLUCOSE POC LAB TO COLLECT [POC] QIDACANDBED Lab 08/26/16 16:30 Ordered GLUCOSE POC LAB TO COLLECT [POC] QIDACANDBED Lab 08/26/16 21:00 Ordered GLUCOSE POC LAB TO COLLECT [POC] QIDACANDBED Lab 08/27/16 07:30 Ordered GLUCOSE POC LAB TO COLLECT [POC] QIDACANDBED Lab 08/27/16 11:30 Ordered GLUCOSE POC LAB TO COLLECT [POC] QIDACANDBED Lab 08/27/16 16:30 Ordered GLUCOSE POC LAB TO COLLECT [POC] QIDACANDBED Lab 08/27/16 21:00 Ordered GLUCOSE POC LAB TO COLLECT [POC] QIDACANDBED Lab 08/28/16 07:30 Ordered GLUCOSE POC LAB TO COLLECT [POC] QIDACANDBED Lab 08/28/16 11:30 Ordered GLUCOSE POC LAB TO COLLECT [POC] QIDACANDBED Lab 08/28/16 16:30 Ordered GLUCOSE POC LAB TO COLLECT [POC] QIDACANDBED Lab 08/28/16 21:00 Ordered GLUCOSE POC LAB TO COLLECT [POC] QIDACANDBED Lab 08/29/16 07:30 Ordered GLUCOSE POC LAB TO COLLECT [POC] QIDACANDBED Lab 08/29/16 11:30 Ordered GLUCOSE POC LAB TO COLLECT [POC] QIDACANDBED Lab 08/29/16 16:30 Ordered GLUCOSE POC LAB TO COLLECT [POC] QIDACANDBED Lab 08/29/16 21:00 Ordered GLUCOSE POC LAB TO COLLECT [POC] QIDACANDBED Lab 08/30/16 07:30 Ordered GLUCOSE POC LAB TO COLLECT [POC] QIDACANDBED Lab 08/30/16 11:30 Ordered GLUCOSE POC LAB TO COLLECT [POC] QIDACANDBED Lab 08/30/16 16:30 Ordered GLUCOSE POC LAB TO COLLECT [POC] QIDACANDBED Lab 08/30/16 21:00 Ordered GLUCOSE POC LAB TO COLLECT [POC] QIDACANDBED Lab 08/31/16 07:30 Ordered GLUCOSE POC LAB TO COLLECT [POC] QIDACANDBED Lab 08/31/16 11:30 Ordered GLUCOSE POC LAB TO COLLECT [POC] QIDACANDBED Lab 08/31/16 16:30 Ordered GLUCOSE POC LAB TO COLLECT [POC] QIDACANDBED Lab 08/31/16 21:00 Ordered GLUCOSE POC LAB TO COLLECT [POC] QIDACANDBED Lab 09/01/16 07:30 Ordered GLUCOSE POC LAB TO COLLECT [POC] QIDACANDBED Lab 09/01/16 11:30 Ordered GLUCOSE POC LAB TO COLLECT [POC] QIDACANDBED Lab 09/01/16 16:30 Ordered GLUCOSE POC LAB TO COLLECT [POC] QIDACANDBED Lab 09/01/16 21:00 Ordered GLUCOSE POC LAB TO COLLECT [POC] QIDACANDBED Lab 09/02/16 07:30 Ordered GLUCOSE POC LAB TO COLLECT [POC] QIDACANDBED Lab 09/02/16 11:30 Ordered MAGNESIUM [CHEM] AM Lab 08/23/16 05:11 Ordered Acetaminophen [Tylenol] Med 08/22/16 14:11 Active 650 mg PO Q4H PRN Albuterol [Proventil Neb Soln] Med 08/22/16 14:11 Active 2.5 mg NEB Q4H PRN Albuterol/Ipratropium [DuoNeb 3.0-0.5 MG/3 ML] Med 08/22/16 15:00 Active 3 ml INH QIDRT Aspirin Med 08/23/16 09:00 Active 81 mg PO DAILY Bumetanide [Bumex] Med 08/22/16 16:00 Active 2 mg PO BIDDIURETIC Clindamycin HCl [Cleocin] Med 08/22/16 16:00 Active 300 mg PO TID Cyclobenzaprine [Flexeril] Med 08/22/16 14:11 Active 10 mg PO TID PRN Dextrose 50% in Water Med 08/22/16 14:11 Active 50 ml IV ONETIME PRN Dextrose [Glutose 15] Med 08/22/16 14:11 Active 15 gm PO ONETIME PRN Docusate Sodium [Colace] Med 08/22/16 14:11 Active 100 mg PO BID PRN Enoxaparin [Lovenox] Med 08/22/16 16:00 Active 40 mg SUBCUT Q24H Escitalopram [Lexapro] Med 08/22/16 21:00 Active 30 mg PO BEDTIME Gabapentin [Neurontin] Med 08/22/16 21:00 Active 300 mg PO BID HYDROmorphone [Dilaudid] Med 08/22/16 14:11 Active 0.5 mg IVPUSH Q4H PRN Insulin Aspart [NovoLOG] Med 08/22/16 17:00 Active 10 unit SUBCUT TIDMEALS Insulin Aspart [NovoLOG] Med 08/22/16 14:11 Active See Protocol SUBCUT ASDIRECTED PRN Insulin Detemir [Levemir] Med 08/22/16 21:00 Active 30 unit SUBCUT BEDTIME Isosorbide Mononitrate [Imdur] Med 08/23/16 09:00 Active 30 mg PO DAILY LORazepam [Ativan] Med 08/22/16 14:11 Active 0.5 mg PO Q4H PRN Lactobacillus Rhamnosus GG [Culturelle] Med 08/22/16 21:00 Active 1 cap PO BID Lisinopril [Prinivil] Med 08/23/16 09:00 Active 20 mg PO DAILY Magnesium Hydroxide [Milk of Magnesia] Med 08/22/16 14:11 Active 30 ml PO Q12H PRN Magnesium Oxide Med 08/22/16 21:00 Active 400 mg PO BID Metoprolol Succinate [Toprol XL] Med 08/22/16 21:00 Active 25 mg PO BEDTIME Mometasone/Formoterol [Dulera 200-5 MCG] Med 08/22/16 21:00 Active 2 puff IH BIDRT Morphine Med 08/22/16 14:06 Active 30 mg PO Q4H PRN Ondansetron [Zofran] Med 08/22/16 14:11 Active 4 mg IV Q4H PRN Oxybutynin Med 08/23/16 09:00 Active 5 mg PO BID Pantoprazole [Protonix] Med 08/23/16 07:30 Active 40 mg PO DAILY@0730 Polyethylene Glycol 3350 [MiraLAX] Med 08/22/16 14:11 Active 17 gm PO DAILY PRN Potassium Chloride [Klor-Con M20] Med 08/22/16 17:00 Active 20 meq PO BIDMEALS Simvastatin [Zocor] Med 08/22/16 21:00 Active 10 mg PO BEDTIME Sodium Chloride 0.9% [Saline Flush] Med 08/22/16 14:11 Active 10 ml FLUSH ASDIRECTED PRN Sucralfate [Carafate] Med 08/22/16 17:00 Active 1 gm PO QIDACANDBED Verapamil [Calan SR] Med 08/22/16 16:30 Active 180 mg PO BIDAC azaTHIOprine [Imuran] Med 08/23/16 09:00 Active 150 mg PO DAILY metFORMIN [Glucophage] Med 08/22/16 17:00 Active 850 mg PO BIDMEALS methylPREDNISolone Sod Succ [Solu-MEDROL] Med 08/22/16 18:00 Active 40 mg IVPUSH Q6H traZODone Med 08/22/16 21:00 Active 50 mg PO BEDTIME Saline Lock Insert [OM.PC] Routine Oth 08/22/16 14:11 Ordered Resuscitation Status Routine Resus Stat 08/22/16 13:04 Ordered Medication Orders Acetaminophen (Tylenol) 650 mg PO Q4H PRN PRN Reason: Pain (Mild 1-3)/fever Albuterol (Proventil Neb Soln) 2.5 mg NEB Q4H PRN PRN Reason: Shortness Of Breath/wheezing Albuterol/Ipratropium (Duoneb 3.0-0.5 Mg/3 Ml) 3 ml INH QIDRT [facility] Aspirin (Aspirin) 81 mg PO DAILY [facility] Azathioprine (Imuran) 150 mg PO DAILY [facility] Bumetanide (Bumex) 2 mg PO BIDDIURETIC [facility] Clindamycin HCl (Cleocin) 300 mg PO TID [facility] Cyclobenzaprine HCl (Flexeril) 10 mg PO TID PRN PRN Reason: Pain Dextrose (Glutose 15) 15 gm PO ONETIME PRN PRN Reason: Hypoglycemia Dextrose/Water (Dextrose 50% In Water) 50 ml IV ONETIME PRN PRN Reason: Hypoglycemia Docusate Sodium (Colace) 100 mg PO BID PRN PRN Reason: Constipation Enoxaparin Sodium (Lovenox) 40 mg SUBCUT Q24H [facility] Escitalopram Oxalate 10 mg/ (Escitalopram Oxalate 20 mg) 30 mg PO BEDTIME [facility] Gabapentin (Neurontin) 300 mg PO BID [facility] Hydromorphone HCl (Dilaudid) 0.5 mg IVPUSH Q4H PRN PRN Reason: Pain Insulin Aspart (Novolog) 10 unit SUBCUT TIDMEALS [facility] Insulin Aspart (Novolog) 0 unit SUBCUT ASDIRECTED PRN; Protocol PRN Reason: SEE PROTOCOL Insulin Detemir (Levemir) 30 unit SUBCUT BEDTIME [facility] Isosorbide Mononitrate (Imdur) 30 mg PO DAILY [facility] Lactobacillus Rhamnosus (Culturelle) 1 cap PO BID [facility] Lisinopril (Prinivil) 20 mg PO DAILY [facility] Lorazepam (Ativan) 0.5 mg PO Q4H PRN PRN Reason: Anxiety Magnesium Hydroxide (Milk Of Magnesia) 30 ml PO Q12H PRN PRN Reason: Constipation Magnesium Oxide (Magnesium Oxide) 400 mg PO BID [facility] Metformin HCl (Glucophage) 850 mg PO BIDMEALS [facility] Methylprednisolone Sodium Succinate (Solu-Medrol) 40 mg IVPUSH Q6H [facility] Metoprolol Succinate (Toprol Xl) 25 mg PO BEDTIME [facility] Mometasone Furoate/Formoterol Fumar (Dulera 200-5 Mcg) 2 puff IH BIDRT [facility] Morphine Sulfate (Morphine) 30 mg PO Q4H PRN PRN Reason: PAIN Last Admin: 08/22/16 14:23 Dose: 30 mg Ondansetron HCl (Zofran) 4 mg IV Q4H PRN PRN Reason: Nausea/Vomiting Oxybutynin Chloride (Oxybutynin) 5 mg PO BID [facility] Pantoprazole Sodium (Protonix) 40 mg PO DAILY@0730 [facility] Polyethylene Glycol (Miralax) 17 gm PO DAILY PRN PRN Reason: Constipation Potassium Chloride (Klor-Con M20) 20 meq PO BIDMEALS [facility] Simvastatin (Zocor) 10 mg PO BEDTIME [facility] Sodium Chloride (Saline Flush) 10 ml FLUSH ASDIRECTED PRN PRN Reason: Keep Vein Open Sucralfate (Carafate) 1 gm PO QIDACANDBED [facility] Trazodone HCl (Trazodone) 50 mg PO BEDTIME [facility] Verapamil HCl (Calan Sr) 180 mg PO BIDAC [facility] Assessment/Plan Comment:: Assessment/Plan Comment:: ASSESSMENT AND PLAN EXACERBATION OF CHRONIC LUNG DISEASE-she has known and long-standing significant pulmonary disease secondary to her underlying rheumatoid arthritis. She uses oxygen chronically at home and is on long-term prednisone therapy. Over the past few days his had increased shortness of breath. Denies significant fevers, chills, and chest x-ray shows no obvious infiltrates. White blood cell count is modestly elevated, she is on chronic therapy with prednisone. No evidence of significant pulmonary edema secondary to congestive heart failure. -Supplemental oxygen as needed -Nebulizer therapy with albuterol and duo nebs -Solu-Medrol 40 mg IV every 6 hours -Continue outpatient oral antibiotic therapy with clindamycin TYPE 2 DIABETES MELLITUS -Continue usual dose of long-acting insulin -Continue NovoLog 10 units subcutaneous with each meal -4 times a day glucometers -Moderate dose sliding scale NovoLog HISTORY OF CONGESTIVE HEART FAILURE-seems to be well compensated at this time -Continue outpatient medical regimen MAINTENANCE ISSUES -DVT prophylaxis; Lovenox 40 mg subcutaneous daily -GI prophylaxis; continue oral PPI therapy -Dougherty catheter; not indicated -Nutrition; 2 g sodium and consistent carb diet -Nicotine dependence; not required CODE STATUS-DNR/DNI ADMISSION STATUS-patient will be admitted to inpatient status, expect at least a 2 night hospital stay for evaluation and management of problems as outlined above. At the time of this admission I do not reasonably expected evaluation and management of this problem will require more than a 96 hour hospital stay. DISPOSITION-anticipate discharge to home after the hospital stay. PRIMARY CARE PROVIDER-Dr. Gonsalez
[2016-08-22] MEDS: Albuterol/Ipratropium 3.0-0.5 MG/3 ML Neb Soln INH SCH ×2 (15:07→21:26)
[2016-08-22] MEDS: Acetaminophen 325 MG Tab PO PRN (15:58)
[2016-08-22] MEDS: Clindamycin HCl 150 MG Cap PO SCH ×2 (15:59→21:27)
[2016-08-22] MEDS: Bumetanide 1 MG Tab PO SCH (15:59)
[2016-08-22] MEDS: Verapamil 180 MG Tab.ER PO SCH (15:59)
[2016-08-22] MEDS: Enoxaparin 40 MG/0.4 ML Syringe SUBCUT SCH (16:00)
[2016-08-22] MEDS ORDERED: Insulin Aspart 100 Units/ML 3 ML Pen SUBCUT ONE ×2 (17:30→21:13)
[2016-08-22] MEDS: Insulin Aspart 100 Units/ML 3 ML Pen SUBCUT SCH (17:55)
[2016-08-22] MEDS: Sucralfate 1 GM Tab PO SCH ×2 (17:58→21:27)
[2016-08-22] MEDS: LORazepam 0.5 MG Tab PO PRN (17:59)
[2016-08-22] MEDS: Potassium Chloride 20 MEQ Tab.ER PO SCH (17:59)
[2016-08-22] MEDS: methylPREDNISolone Sodium Succinate 40 MG/1 ML SDV IVPUSH SCH ×2 (18:54→23:35)
[2016-08-22] MEDS: Bacitracin Oint 1 GM U/D Packet TOP PRN (18:55)
[2016-08-22] MEDS: HYDROmorphone 0.5 MG/0.5 ML Syringe IVPUSH PRN ×2 (19:26→23:35)
[2016-08-22] MEDS ORDERED: Escitalopram 20 MG Tab PO SCH (21:00)
--- NOTE | 2016-08-22 21:21 | PCM.SN ---
- Free Text/Narrative Note: time 21:16; call from [facility]; blood glucose is 317 a: hyperglycemia p; exceeds sliding scale coverage, order for Novolog 12 units subcut now. continue present plan of care
[2016-08-22] MEDS: Insulin Detemir 100 Units/ML 3 ML Pen SUBCUT SCH (21:22)
[2016-08-22] MEDS: Formoterol/Mometasone 200-5 MCG 8.8 GM Inhaler IH SCH (21:26)
[2016-08-22] MEDS: Lactobacillus Rhamnosus GG (Probiotic) Cap PO SCH (21:28)
[2016-08-22] MEDS: ESCITALOPRAM PO SCH ×2 (21:28)
[2016-08-22] MEDS: Magnesium Oxide 400 MG Tab PO SCH (21:28)
[2016-08-22] MEDS: Metoprolol Succinate 25 MG Tab.ER PO SCH (21:29)
[2016-08-22] MEDS: Gabapentin 300 MG Cap PO SCH (21:29)
[2016-08-22] MEDS: traZODone 50 MG Tab PO SCH (21:30)
[2016-08-22] MEDS: Simvastatin 20 MG Tab PO SCH (21:30)
[2016-08-23] MEDS: Ondansetron 4 MG Tab.DIS PO PRN (01:00)
[2016-08-23] MEDS: LORazepam 0.5 MG Tab PO PRN ×3 (01:00→21:20)
[2016-08-23] MEDS: Acetaminophen 325 MG Tab PO PRN (01:01)
[2016-08-23] MEDS: methylPREDNISolone Sodium Succinate 40 MG/1 ML SDV IVPUSH SCH ×3 (05:50→18:52)
[2016-08-23] MEDS: Albuterol/Ipratropium 3.0-0.5 MG/3 ML Neb Soln INH SCH ×4 (07:04→21:42)
[2016-08-23] MEDS: Formoterol/Mometasone 200-5 MCG 8.8 GM Inhaler IH SCH ×2 (07:05→21:33)
[2016-08-23] MEDS ORDERED: Insulin Aspart 100 Units/ML 3 ML Pen SUBCUT ONE ×4 (08:15→21:13)
[2016-08-23] MEDS ORDERED: Magnesium Sulfate/Water 2 GM in Premix Bag 1 BAG IV SCH (08:30)
[2016-08-23] MEDS: Sucralfate 1 GM Tab PO SCH ×4 (09:17→21:32)
[2016-08-23] MEDS: Verapamil 180 MG Tab.ER PO SCH ×2 (09:17→17:45)
[2016-08-23] MEDS: Bumetanide 1 MG Tab PO SCH ×2 (09:18→14:06)
[2016-08-23] MEDS: Pantoprazole 40 MG Tab.CR PO SCH (09:18)
[2016-08-23] MEDS: Magnesium Sulfate/Water 2 GM in Premix Bag 1 BAG IV SCH ×3 (09:53→21:25)
[2016-08-23] MEDS: Lisinopril 20 MG Tab PO SCH (10:08)
[2016-08-23] MEDS: Isosorbide Mononitrate 30 MG Tab.ER PO SCH (10:09)
[2016-08-23] MEDS: Aspirin 81 MG Tab.Chew PO SCH (10:09)
[2016-08-23] MEDS: Potassium Chloride 20 MEQ Tab.ER PO SCH ×2 (10:09→17:45)
[2016-08-23] MEDS: Gabapentin 300 MG Cap PO SCH ×2 (10:10→21:39)
[2016-08-23] MEDS: Clindamycin HCl 150 MG Cap PO SCH ×3 (10:10→21:33)
[2016-08-23] MEDS: Magnesium Oxide 400 MG Tab PO SCH ×2 (10:10→21:35)
[2016-08-23] MEDS: Lactobacillus Rhamnosus GG (Probiotic) Cap PO SCH ×2 (10:10→21:33)
[2016-08-23] MEDS: Oxybutynin 5 MG Tab PO SCH ×2 (10:10→21:35)
[2016-08-23] MEDS: Insulin Detemir 100 Units/ML 3 ML Pen SUBCUT SCH ×2 (10:14→21:28)
[2016-08-23] MEDS: Insulin Aspart 100 Units/ML 3 ML Pen SUBCUT SCH ×3 (10:17→17:49)
--- NOTE | 2016-08-23 11:40 | PCM.PN ---
- General Info Date of Service: 08/23/16 Functional Status: Reports: tolerating diet, ambulating, urinating - Review of Systems General: Reports: Weakness. Denies: Fever, Chills Pulmonary: Reports: shortness of breath. Denies: pleuritic chest pain, cough, sputum, hemoptysis, wheezing Cardiovascular: Reports: Dyspnea on Exertion, Other (Back and chest wall pain). Denies: Chest Pain, Palpitations, Orthopnea, PND, Edema Gastrointestinal: Reports: No symptoms Systems Review Comment:: Dipti has improved since admission, mild decrease in shortness of breath. Oxygen saturations have been adequate on current level of supplemental oxygen. Vital signs have been stable and she remains afebrile. Continues to experience significant right-sided back and chest wall pain. - Patient Data Vitals - most recent: Last Vital Signs Temp 96.8 F 08/23/16 07:52 Pulse 76 08/23/16 11:25 Resp 16 08/23/16 07:52 BP 170/95 H 08/23/16 10:09 Pulse Ox 90 L 08/23/16 07:52 Weight - most recent: 302 lb 0.533 oz I&O - last 24 hours: Intake & Output 08/22/16 08/23/16 08/23/16 22:59 06:59 14:59 Intake Total 300 480 50 Output Total 900 700 Balance -600 -220 50 Lab Results last 24 hrs: Laboratory Results - last 24 hr 08/23/16 08/23/16 Range/Units 05:45 05:45 WBC 7.6 (4.5-11.0) K/uL RBC 4.30 (3.30-5.50) M/uL Hgb 10.8 L (12.0-15.0) g/dL Hct 37.3 (36.0-48.0) % MCV 87 (80-98) fL MCH 25 L (27-31) pg MCHC 29 L (32-36) % Plt Count 233 (150-400) K/uL Neut % (Auto) 90 H (36-66) % Lymph % (Auto) 7 L (24-44) % [place] % (Auto) 3 (2-6) % Eos % (Auto) 0 L (2-4) % Baso % (Auto) 0 (0-1) % Sodium 144 (140-148) mmol/L Potassium 4.4 (3.6-5.2) mmol/L Chloride 102 (100-108) mmol/L Carbon Dioxide 36 H (21-32) mmol/L Anion Gap 10.4 (5.0-14.0) mmol/L BUN 13 (7-18) mg/dL Creatinine 0.8 (0.6-1.0) mg/dL Est Cr Clr Drug Dosing 68.26 mL/min Estimated GFR (MDRD) > 60 (>60) Glucose 354 H (74-106) mg/dL Calcium 8.6 (8.5-10.1) mg/dL Magnesium 1.5 L (1.8-2.4) mg/dL Med Orders - Current: Current Medications Acetaminophen (Tylenol) 650 mg PO Q4H PRN PRN Reason: Pain (Mild 1-3)/fever Last Admin: 08/23/16 01:01 Dose: 650 mg Albuterol (Proventil Neb Soln) 2.5 mg NEB Q4H PRN PRN Reason: Shortness Of Breath/wheezing Albuterol/Ipratropium (Duoneb 3.0-0.5 Mg/3 Ml) 3 ml INH QIDRT [facility] Last Admin: 08/23/16 11:25 Dose: 3 ml Aspirin (Aspirin) 81 mg PO DAILY [facility] Last Admin: 08/23/16 10:09 Dose: 81 mg Azathioprine (Imuran) 150 mg PO DAILY [facility] Last Admin: 08/23/16 10:10 Dose: 150 mg Bacitracin (Bacitracin Oint 1 Gm) 1 dose TOP ASDIRECTED PRN PRN Reason: sore left arm Last Admin: 08/22/16 18:55 Dose: 1 dose Bumetanide (Bumex) 2 mg PO BIDDIURETIC [facility] Last Admin: 08/23/16 09:18 Dose: 2 mg Clindamycin HCl (Cleocin) 300 mg PO TID [facility] Last Admin: 08/23/16 10:10 Dose: 300 mg Cyclobenzaprine HCl (Flexeril) 10 mg PO TID PRN PRN Reason: Pain Dextrose (Glutose 15) 15 gm PO ONETIME PRN PRN Reason: Hypoglycemia Dextrose/Water (Dextrose 50% In Water) 50 ml IV ONETIME PRN PRN Reason: Hypoglycemia Docusate Sodium (Colace) 100 mg PO BID PRN PRN Reason: Constipation Enoxaparin Sodium (Lovenox) 40 mg SUBCUT Q24H [facility] Last Admin: 08/22/16 16:00 Dose: 40 mg Escitalopram Oxalate 10 mg/ (Escitalopram Oxalate 20 mg) 30 mg PO BEDTIME [facility] Last Admin: 08/22/16 21:28 Dose: 30 mg Gabapentin (Neurontin) 300 mg PO BID [facility] Last Admin: 08/23/16 10:10 Dose: 300 mg Heparin Sodium (Porcine) (Heparin Lock Flush 100 Units/Ml Syringe) 500 units FLUSH ASDIRECTED PRN PRN Reason: Other Last Admin: 08/23/16 05:54 Dose: 500 units Hydromorphone HCl (Dilaudid) 0.5 mg IVPUSH Q4H PRN PRN Reason: Pain Last Admin: 08/22/16 23:35 Dose: 0.5 mg Magnesium Sulfate 2 gm/ Premix 50 mls @ 25 mls/hr IV Q6H [facility] Stop: 08/24/16 04:29 Last Admin: 08/23/16 09:53 Dose: 25 mls/hr Insulin Aspart (Novolog) 10 unit SUBCUT TIDMEALS [facility] Last Admin: 08/23/16 10:17 Dose: 10 units Insulin Aspart (Novolog) 0 unit SUBCUT ASDIRECTED PRN; Protocol PRN Reason: SEE PROTOCOL Insulin Detemir (Levemir) 30 unit SUBCUT BEDTIME [facility] Last Admin: 08/22/16 21:22 Dose: 30 units Insulin Detemir (Levemir) 20 unit SUBCUT DAILY [facility] Last Admin: 08/23/16 10:14 Dose: 20 units Isosorbide Mononitrate (Imdur) 30 mg PO DAILY [facility] Last Admin: 08/23/16 10:09 Dose: 30 mg Lactobacillus Rhamnosus (Culturelle) 1 cap PO BID [facility] Last Admin: 08/23/16 10:10 Dose: 1 cap Lisinopril (Prinivil) 20 mg PO DAILY [facility] Last Admin: 08/23/16 10:08 Dose: 20 mg Lorazepam (Ativan) 0.5 mg PO Q4H PRN PRN Reason: Anxiety Last Admin: 08/23/16 01:00 Dose: 0.5 mg Magnesium Hydroxide (Milk Of Magnesia) 30 ml PO Q12H PRN PRN Reason: Constipation Magnesium Oxide (Magnesium Oxide) 400 mg PO BID [facility] Last Admin: 08/23/16 10:10 Dose: 400 mg Metformin HCl (Glucophage) 850 mg PO BIDMEALS [facility] Last Admin: 08/23/16 09:18 Dose: 850 mg Methylprednisolone Sodium Succinate (Solu-Medrol) 40 mg IVPUSH Q6H [facility] Last Admin: 08/23/16 05:50 Dose: 40 mg Metoprolol Succinate (Toprol Xl) 25 mg PO BEDTIME [facility] Last Admin: 08/22/16 21:29 Dose: 25 mg Mometasone Furoate/Formoterol Fumar (Dulera 200-5 Mcg) 2 puff IH BIDRT [facility] Last Admin: 08/23/16 07:05 Dose: 2 puff Morphine Sulfate (Morphine) 30 mg PO Q4H PRN PRN Reason: PAIN Last Admin: 08/22/16 23:35 Dose: 30 mg Ondansetron HCl (Zofran) 4 mg IV Q4H PRN PRN Reason: Nausea/Vomiting Ondansetron HCl (Zofran Odt) 4 mg PO Q4H PRN PRN Reason: Nausea/Vomiting Last Admin: 08/23/16 01:00 Dose: 4 mg Oxybutynin Chloride (Oxybutynin) 5 mg PO BID [facility] Last Admin: 08/23/16 10:10 Dose: 5 mg Pantoprazole Sodium (Protonix) 40 mg PO DAILY@0730 [facility] Last Admin: 08/23/16 09:18 Dose: 40 mg Polyethylene Glycol (Miralax) 17 gm PO DAILY PRN PRN Reason: Constipation Potassium Chloride (Klor-Con M20) 20 meq PO BIDMEALS [facility] Last Admin: 08/23/16 10:09 Dose: 20 meq Simvastatin (Zocor) 10 mg PO BEDTIME [facility] Last Admin: 08/22/16 21:30 Dose: 10 mg Sodium Chloride (Saline Flush) 10 ml FLUSH ASDIRECTED PRN PRN Reason: Keep Vein Open Sucralfate (Carafate) 1 gm PO QIDACANDBED [facility] Last Admin: 08/23/16 11:04 Dose: 1 gm Trazodone HCl (Trazodone) 50 mg PO BEDTIME [facility] Last Admin: 08/22/16 21:30 Dose: 50 mg Verapamil HCl (Calan Sr) 180 mg PO BIDAC [facility] Last Admin: 08/23/16 09:17 Dose: 180 mg Discontinued Medications Magnesium Sulfate 2 gm/ Premix 50 mls @ 25 mls/hr IV Q6H [facility] Stop: 08/24/16 04:29 Insulin Aspart (Novolog) 12 unit SUBCUT ONETIME ONE Stop: 08/22/16 17:31 Last Admin: 08/22/16 17:55 Dose: 12 units Insulin Aspart (Novolog) 12 unit SUBCUT ONETIME ONE Stop: 08/22/16 21:14 Last Admin: 08/22/16 21:24 Dose: 12 units Insulin Aspart (Novolog) 10 unit SUBCUT ONETIME ONE Stop: 08/23/16 08:16 Last Admin: 08/23/16 10:16 Dose: 10 units Methylprednisolone Sodium Succinate (Solu-Medrol) 125 mg IVPUSH ONETIME ONE Stop: 08/22/16 11:46 Last Admin: 08/22/16 12:03 Dose: 125 mg - Exam Quality Assessment: supplemental oxygen, DVT prophylaxis General: alert, oriented, cooperative, mild distress Lungs: Normal respiratory effort, Decreased breath sounds. No: Crackles, Rales , Rhonchi, Rub, Stridor, Wheezing Cardiovascular: Regular Rate, Regular Rhythm, No Murmurs, Murmurs. No: Irregular Rhythm, Bradycardia, Tachycardia Abdomen: bowel sounds present, soft, no tenderness, no distension Extremities: no edema Skin: warm, dry, intact - Problem List Review Problem List Initiated/Reviewed/Updated: Yes - My Orders Last 24 Hours: My Active Orders 08/22/16 13:04 Resuscitation Status Routine 08/22/16 14:06 Morphine 30 mg PO Q4H PRN 08/22/16 14:11 Patient Status [ADT] Routine Blood Glucose Check, Bedside [RC] QIDACANDBED Communication Order [RC] ASDIRECTED Intake and Output [RC] QSHIFT Notify Provider Vital Signs [RC] ASDIRECTED Notify Provider [RC] PRN Oxygen Therapy [RC] PRN RT Aerosol Therapy [RC] ASDIRECTED Up With Assistance [RC] ASDIRECTED VTE/DVT Education [RC] Per Unit Routine Vital Signs [RC] Q4H PT Evaluation and Treatment [CONS] Routine CULTURE RESPIRATORY + SMEAR [RM] Stat Acetaminophen [Tylenol] 650 mg PO Q4H PRN Albuterol [Proventil Neb Soln] 2.5 mg NEB Q4H PRN Cyclobenzaprine [Flexeril] 10 mg PO TID PRN Dextrose 50% in Water 50 ml IV ONETIME PRN Dextrose [Glutose 15] 15 gm PO ONETIME PRN Docusate Sodium [Colace] 100 mg PO BID PRN HYDROmorphone [Dilaudid] 0.5 mg IVPUSH Q4H PRN Insulin Aspart [NovoLOG] See Protocol SUBCUT ASDIRECTED PRN LORazepam [Ativan] 0.5 mg PO Q4H PRN Magnesium Hydroxide [Milk of Magnesia] 30 ml PO Q12H PRN Ondansetron [Zofran] 4 mg IV Q4H PRN Polyethylene Glycol 3350 [MiraLAX] 17 gm PO DAILY PRN Sodium Chloride 0.9% [Saline Flush] 10 ml FLUSH ASDIRECTED PRN Saline Lock Insert [OM.PC] Routine 08/22/16 15:00 Albuterol/Ipratropium [DuoNeb 3.0-0.5 MG/3 ML] 3 ml INH QIDRT 08/22/16 16:00 Bumetanide [Bumex] 2 mg PO BIDDIURETIC Clindamycin HCl [Cleocin] 300 mg PO TID Enoxaparin [Lovenox] 40 mg SUBCUT Q24H 08/22/16 16:30 Verapamil [Calan SR] 180 mg PO BIDAC 08/22/16 17:00 Insulin Aspart [NovoLOG] 10 unit SUBCUT TIDMEALS Potassium Chloride [Klor-Con M20] 20 meq PO BIDMEALS Sucralfate [Carafate] 1 gm PO QIDACANDBED metFORMIN [Glucophage] 850 mg PO BIDMEALS 08/22/16 18:00 methylPREDNISolone Sod Succ [Solu-MEDROL] 40 mg IVPUSH Q6H 08/22/16 18:25 Heparin Sodium [Heparin Lock Flush 100 Units/ML Syringe] 500 units FLUSH ASDIRECTED PRN 08/22/16 18:27 Bacitracin [Bacitracin Oint 1 GM] 1 dose TOP ASDIRECTED PRN 08/22/16 21:00 Escitalopram [Lexapro] 30 mg PO BEDTIME Gabapentin [Neurontin] 300 mg PO BID Insulin Detemir [Levemir] 30 unit SUBCUT BEDTIME Lactobacillus Rhamnosus GG [Culturelle] 1 cap PO BID Magnesium Oxide 400 mg PO BID Metoprolol Succinate [Toprol XL] 25 mg PO BEDTIME Mometasone/Formoterol [Dulera 200-5 MCG] 2 puff IH BIDRT Simvastatin [Zocor] 10 mg PO BEDTIME traZODone 50 mg PO BEDTIME 08/22/16 Lunch 2 Gram Sodium Diet [DIET] 08/23/16 00:51 Ondansetron [Zofran ODT] 4 mg PO Q4H PRN 08/23/16 07:30 Pantoprazole [Protonix] 40 mg PO DAILY@0730 08/23/16 08:30 Magnesium Sulfate/Water [Magnesium Sulfate 2 GM in Water 50 ML] 2 gm Premix Bag 1 bag IV Q6H 08/23/16 09:00 Aspirin 81 mg PO DAILY Insulin Detemir [Levemir] 20 unit SUBCUT DAILY Isosorbide Mononitrate [Imdur] 30 mg PO DAILY Lisinopril [Prinivil] 20 mg PO DAILY Oxybutynin 5 mg PO BID azaTHIOprine [Imuran] 150 mg PO DAILY 08/23/16 11:34 Thoracic Spine Comp w wo Cont [MR] Urgent 08/23/16 16:30 GLUCOSE POC LAB TO COLLECT [POC] QIDACANDBED 08/23/16 21:00 GLUCOSE POC LAB TO COLLECT [POC] QIDACANDBED 08/24/16 05:00 BASIC METABOLIC PANEL,BMP [CHEM] Timed MAGNESIUM [CHEM] Timed 08/24/16 07:30 GLUCOSE POC LAB TO COLLECT [POC] QIDACANDBED 08/24/16 11:30 GLUCOSE POC LAB TO COLLECT [POC] QIDACANDBED 08/24/16 16:30 GLUCOSE POC LAB TO COLLECT [POC] QIDACANDBED 08/24/16 21:00 GLUCOSE POC LAB TO COLLECT [POC] QIDACANDBED 08/25/16 07:30 GLUCOSE POC LAB TO COLLECT [POC] QIDACANDBED 08/25/16 11:30 GLUCOSE POC LAB TO COLLECT [POC] QIDACANDBED 08/25/16 16:30 GLUCOSE POC LAB TO COLLECT [POC] QIDACANDBED 08/25/16 21:00 GLUCOSE POC LAB TO COLLECT [POC] QIDACANDBED 08/26/16 07:30 GLUCOSE POC LAB TO COLLECT [POC] QIDACANDBED 08/26/16 11:30 GLUCOSE POC LAB TO COLLECT [POC] QIDACANDBED 08/26/16 16:30 GLUCOSE POC LAB TO COLLECT [POC] QIDACANDBED 08/26/16 21:00 GLUCOSE POC LAB TO COLLECT [POC] QIDACANDBED 08/27/16 07:30 GLUCOSE POC LAB TO COLLECT [POC] QIDACANDBED 08/27/16 11:30 GLUCOSE POC LAB TO COLLECT [POC] QIDACANDBED 08/27/16 16:30 GLUCOSE POC LAB TO COLLECT [POC] QIDACANDBED 08/27/16 21:00 GLUCOSE POC LAB TO COLLECT [POC] QIDACANDBED 08/28/16 07:30 GLUCOSE POC LAB TO COLLECT [POC] QIDACANDBED 08/28/16 11:30 GLUCOSE POC LAB TO COLLECT [POC] QIDACANDBED 08/28/16 16:30 GLUCOSE POC LAB TO COLLECT [POC] QIDACANDBED 08/28/16 21:00 GLUCOSE POC LAB TO COLLECT [POC] QIDACANDBED 08/29/16 07:30 GLUCOSE POC LAB TO COLLECT [POC] QIDACANDBED 08/29/16 11:30 GLUCOSE POC LAB TO COLLECT [POC] QIDACANDBED 08/29/16 16:30 GLUCOSE POC LAB TO COLLECT [POC] QIDACANDBED 08/29/16 21:00 GLUCOSE POC LAB TO COLLECT [POC] QIDACANDBED 08/30/16 07:30 GLUCOSE POC LAB TO COLLECT [POC] QIDACANDBED 08/30/16 11:30 GLUCOSE POC LAB TO COLLECT [POC] QIDACANDBED 08/30/16 16:30 GLUCOSE POC LAB TO COLLECT [POC] QIDACANDBED 08/30/16 21:00 GLUCOSE POC LAB TO COLLECT [POC] QIDACANDBED 08/31/16 07:30 GLUCOSE POC LAB TO COLLECT [POC] QIDACANDBED 08/31/16 11:30 GLUCOSE POC LAB TO COLLECT [POC] QIDACANDBED 08/31/16 16:30 GLUCOSE POC LAB TO COLLECT [POC] QIDACANDBED 08/31/16 21:00 GLUCOSE POC LAB TO COLLECT [POC] QIDACANDBED 09/01/16 07:30 GLUCOSE POC LAB TO COLLECT [POC] QIDACANDBED 09/01/16 11:30 GLUCOSE POC LAB TO COLLECT [POC] QIDACANDBED 09/01/16 16:30 GLUCOSE POC LAB TO COLLECT [POC] QIDACANDBED 09/01/16 21:00 GLUCOSE POC LAB TO COLLECT [POC] QIDACANDBED 09/02/16 07:30 GLUCOSE POC LAB TO COLLECT [POC] QIDACANDBED 09/02/16 11:30 GLUCOSE POC LAB TO COLLECT [POC] QIDACANDBED - Plan Plan:: Assessment/Plan Comment:: ASSESSMENT AND PLAN EXACERBATION OF CHRONIC LUNG DISEASE-she has known and long-standing significant pulmonary disease secondary to her underlying rheumatoid arthritis. She uses oxygen chronically at home and is on long-term prednisone therapy. Over the past few days his had increased shortness of breath. Denies significant fevers, chills, and chest x-ray shows no obvious infiltrates. White blood cell count is modestly elevated, she is on chronic therapy with prednisone. No evidence of significant pulmonary edema secondary to congestive heart failure. Shortness of breath is improved modestly since admission -Supplemental oxygen as needed -Nebulizer therapy with albuterol and duo nebs -Solu-Medrol 40 mg IV every 6 hours -Continue outpatient oral antibiotic therapy with clindamycin RIGHT-SIDED BACK AND CHEST WALL PAIN-pain seems to radiate from the back and around to the lower chest upper abdomen. No evidence of underlying shingles or other obvious abnormality -MRI of the thoracic spine to rule out nerve root compression -Consider CT scan of the chest for further evaluation TYPE 2 DIABETES MELLITUS-blood sugars have been running high secondary to current therapy with Solu-Medrol -Increase long-acting insulin to twice daily while on Solu-Medrol -Continue NovoLog 10 units subcutaneous with each meal -4 times a day glucometers -Moderate dose sliding scale NovoLog HISTORY OF CONGESTIVE HEART FAILURE-seems to be well compensated at this time -Continue outpatient medical regimen MAINTENANCE ISSUES -DVT prophylaxis; Lovenox 40 mg subcutaneous daily -GI prophylaxis; continue oral PPI therapy -Dougherty catheter; not indicated -Nutrition; 2 g sodium and consistent carb diet -Nicotine dependence; not required CODE STATUS-DNR/DNI ADMISSION STATUS-patient will be admitted to inpatient status, expect at least a 2 night hospital stay for evaluation and management of problems as outlined above. At the time of this admission I do not reasonably expected evaluation and management of this problem will require more than a 96 hour hospital stay. DISPOSITION-anticipate discharge to home after the hospital stay. PRIMARY CARE PROVIDER-Dr. Gonsalez
[2016-08-23] MEDS: HYDROmorphone 0.5 MG/0.5 ML Syringe IVPUSH PRN ×2 (12:01→21:24)
--- NOTE | 2016-08-23 13:29 | MR ---
MRI thoracic spine Findings: There is a mild-moderate inferior endplate compression fracture T5 vertebral body with mar row edema. Approximately 30% height loss. No canal stenosis at this level. Disc protrusion is diffus e and mild at T5-6. The thoracic cord has normal MR signal. Hemangioma T11 vertebral body. Tiny casey ngioma T12 vertebral body. Endplate degenerative change T6 vertebral body. No high-grade foraminal n arrowing. Impression: 1. Inferior endplate compression fracture T5 vertebral body with marrow edema appears acute. No joann l stenosis.
[2016-08-23] MEDS: Enoxaparin 40 MG/0.4 ML Syringe SUBCUT SCH (17:45)
[2016-08-23] MEDS: ESCITALOPRAM PO SCH ×2 (21:34)
[2016-08-23] MEDS: Metoprolol Succinate 25 MG Tab.ER PO SCH (21:36)
[2016-08-23] MEDS: Simvastatin 20 MG Tab PO SCH (21:38)
[2016-08-23] MEDS: traZODone 50 MG Tab PO SCH (21:38)
[2016-08-24] MEDS: methylPREDNISolone Sodium Succinate 40 MG/1 ML SDV IVPUSH SCH ×4 (00:18→17:15)
[2016-08-24] MEDS: HYDROmorphone 0.5 MG/0.5 ML Syringe IVPUSH PRN (03:21)
[2016-08-24] MEDS: Ondansetron 4 MG Tab.DIS PO PRN (03:29)
[2016-08-24] MEDS: Albuterol/Ipratropium 3.0-0.5 MG/3 ML Neb Soln INH SCH ×4 (07:20→20:44)
[2016-08-24] MEDS: Formoterol/Mometasone 200-5 MCG 8.8 GM Inhaler IH SCH ×2 (07:20→20:47)
[2016-08-24] MEDS: Sucralfate 1 GM Tab PO SCH ×4 (08:04→20:46)
[2016-08-24] MEDS: Pantoprazole 40 MG Tab.CR PO SCH (08:04)
[2016-08-24] MEDS: Verapamil 180 MG Tab.ER PO SCH ×2 (08:05→17:16)
[2016-08-24] MEDS: Bumetanide 1 MG Tab PO SCH ×2 (08:06→14:45)
[2016-08-24] MEDS: Insulin Aspart 100 Units/ML 3 ML Pen SUBCUT SCH ×7 (08:10→21:08)
[2016-08-24] MEDS: Insulin Detemir 100 Units/ML 3 ML Pen SUBCUT SCH ×2 (08:16→21:06)
[2016-08-24] MEDS: Potassium Chloride 20 MEQ Tab.ER PO SCH ×2 (08:20→17:16)
[2016-08-24] MEDS: Lactobacillus Rhamnosus GG (Probiotic) Cap PO SCH ×2 (08:21→20:47)
[2016-08-24] MEDS: Clindamycin HCl 150 MG Cap PO SCH ×3 (08:21→20:46)
[2016-08-24] MEDS: Aspirin 81 MG Tab.Chew PO SCH (08:21)
[2016-08-24] MEDS: Isosorbide Mononitrate 30 MG Tab.ER PO SCH (08:22)
[2016-08-24] MEDS: Magnesium Oxide 400 MG Tab PO SCH ×2 (08:23→20:51)
[2016-08-24] MEDS: Gabapentin 300 MG Cap PO SCH ×2 (08:23→20:48)
[2016-08-24] MEDS: Lisinopril 20 MG Tab PO SCH (08:23)
[2016-08-24] MEDS: Oxybutynin 5 MG Tab PO SCH ×2 (08:23→20:52)
--- NOTE | 2016-08-24 13:31 | PCM.PN ---
- General Info Date of Service: 08/24/16 Functional Status: Reports: pain controlled, tolerating diet, urinating - Review of Systems General: Reports: Weakness. Denies: Fever, Chills Pulmonary: Reports: shortness of breath, cough. Denies: pleuritic chest pain, sputum, hemoptysis, wheezing Cardiovascular: Reports: Dyspnea on Exertion. Denies: Chest Pain, Palpitations , Orthopnea, PND, Edema, Lightheadedness Gastrointestinal: Reports: No symptoms Systems Review Comment:: Dipti has been stable since yesterday, MRI was obtained yesterday afternoon and did document a T5 compression fracture is the probable source of her back and chest wall pain. Vital signs have been stable and she has remained afebrile. Oxygen saturations have been within the desired range and respiratory status has improved from admission. - Patient Data Vitals - most recent: Last Vital Signs Temp 98.1 F 08/24/16 10:37 Pulse 90 08/24/16 10:37 Resp 20 08/24/16 10:37 BP 131/71 08/24/16 10:37 Pulse Ox 84 L 08/24/16 10:37 Weight - most recent: 302 lb 0.533 oz I&O - last 24 hours: Intake & Output 08/23/16 08/24/16 08/24/16 22:59 06:59 14:59 Intake Total 290 Output Total 900 250 Balance -610 -250 Lab Results last 24 hrs: Laboratory Results - last 24 hr 08/24/16 Range/Units 05:00 Sodium 147 (140-148) mmol/L Potassium 4.5 (3.6-5.2) mmol/L Chloride 103 (100-108) mmol/L Carbon Dioxide 38 H (21-32) mmol/L Anion Gap 10.5 (5.0-14.0) mmol/L BUN 20 H D (7-18) mg/dL Creatinine 1.0 (0.6-1.0) mg/dL Est Cr Clr Drug Dosing 54.60 mL/min Estimated GFR (MDRD) 56 L (>60) Glucose 331 H (74-106) mg/dL Calcium 8.0 L (8.5-10.1) mg/dL Magnesium 2.7 H D (1.8-2.4) mg/dL Med Orders - Current: Current Medications Acetaminophen (Tylenol) 650 mg PO Q4H PRN PRN Reason: Pain (Mild 1-3)/fever Last Admin: 08/23/16 01:01 Dose: 650 mg Albuterol (Proventil Neb Soln) 2.5 mg NEB Q4H PRN PRN Reason: Shortness Of Breath/wheezing Albuterol/Ipratropium (Duoneb 3.0-0.5 Mg/3 Ml) 3 ml INH QIDRT [facility] Last Admin: 08/24/16 10:41 Dose: 3 ml Aspirin (Aspirin) 81 mg PO DAILY [facility] Last Admin: 08/24/16 08:21 Dose: 81 mg Azathioprine (Imuran) 150 mg PO DAILY [facility] Last Admin: 08/24/16 08:22 Dose: 150 mg Bacitracin (Bacitracin Oint 1 Gm) 1 dose TOP ASDIRECTED PRN PRN Reason: sore left arm Last Admin: 08/22/16 18:55 Dose: 1 dose Bumetanide (Bumex) 2 mg PO BIDDIURETIC [facility] Last Admin: 08/24/16 08:06 Dose: 2 mg Clindamycin HCl (Cleocin) 300 mg PO TID [facility] Last Admin: 08/24/16 08:21 Dose: 300 mg Cyclobenzaprine HCl (Flexeril) 10 mg PO TID PRN PRN Reason: Pain Dextrose (Glutose 15) 15 gm PO ONETIME PRN PRN Reason: Hypoglycemia Dextrose/Water (Dextrose 50% In Water) 50 ml IV ONETIME PRN PRN Reason: Hypoglycemia Docusate Sodium (Colace) 100 mg PO BID PRN PRN Reason: Constipation Enoxaparin Sodium (Lovenox) 40 mg SUBCUT Q24H [facility] Last Admin: 08/23/16 17:45 Dose: 40 mg Escitalopram Oxalate 10 mg/ (Escitalopram Oxalate 20 mg) 30 mg PO BEDTIME [facility] Last Admin: 08/23/16 21:34 Dose: 30 mg Gabapentin (Neurontin) 300 mg PO BID [facility] Last Admin: 08/24/16 08:23 Dose: 300 mg Heparin Sodium (Porcine) (Heparin Lock Flush 100 Units/Ml Syringe) 500 units FLUSH ASDIRECTED PRN PRN Reason: Other Last Admin: 08/24/16 12:09 Dose: 500 units Hydromorphone HCl (Dilaudid) 0.5 mg IVPUSH Q4H PRN PRN Reason: Pain Last Admin: 08/24/16 03:21 Dose: 0.5 mg Insulin Aspart (Novolog) 10 unit SUBCUT TIDMEALS [facility] Last Admin: 08/24/16 11:55 Dose: 10 units Insulin Aspart (Novolog) 0 unit SUBCUT ASDIRECTED [facility] PRN Reason: Protocol Last Admin: 08/24/16 11:58 Dose: 14 units Insulin Detemir (Levemir) 40 unit SUBCUT BEDTIME [facility] Isosorbide Mononitrate (Imdur) 30 mg PO DAILY [facility] Last Admin: 08/24/16 08:22 Dose: 30 mg Lactobacillus Rhamnosus (Culturelle) 1 cap PO BID [facility] Last Admin: 08/24/16 08:21 Dose: 1 cap Lisinopril (Prinivil) 20 mg PO DAILY [facility] Last Admin: 08/24/16 08:23 Dose: 20 mg Lorazepam (Ativan) 0.5 mg PO Q4H PRN PRN Reason: Anxiety Last Admin: 08/23/16 21:20 Dose: 0.5 mg Magnesium Hydroxide (Milk Of Magnesia) 30 ml PO Q12H PRN PRN Reason: Constipation Magnesium Oxide (Magnesium Oxide) 400 mg PO BID [facility] Last Admin: 08/24/16 08:23 Dose: 400 mg Metformin HCl (Glucophage) 850 mg PO BIDMEALS [facility] Last Admin: 08/24/16 08:20 Dose: 850 mg Methylprednisolone Sodium Succinate (Solu-Medrol) 40 mg IVPUSH Q6H [facility] Last Admin: 08/24/16 12:03 Dose: 40 mg Metoprolol Succinate (Toprol Xl) 25 mg PO BEDTIME [facility] Last Admin: 08/23/16 21:36 Dose: 25 mg Mometasone Furoate/Formoterol Fumar (Dulera 200-5 Mcg) 2 puff IH BIDRT [facility] Last Admin: 08/24/16 07:20 Dose: 2 puff Morphine Sulfate (Morphine) 30 mg PO Q4H PRN PRN Reason: PAIN Last Admin: 08/24/16 09:26 Dose: 30 mg Ondansetron HCl (Zofran) 4 mg IV Q4H PRN PRN Reason: Nausea/Vomiting Last Admin: 08/23/16 16:02 Dose: 4 mg Ondansetron HCl (Zofran Odt) 4 mg PO Q4H PRN PRN Reason: Nausea/Vomiting Last Admin: 08/24/16 03:29 Dose: 4 mg Oxybutynin Chloride (Oxybutynin) 5 mg PO BID [facility] Last Admin: 08/24/16 08:23 Dose: 5 mg Pantoprazole Sodium (Protonix) 40 mg PO DAILY@0730 [facility] Last Admin: 08/24/16 08:04 Dose: 40 mg Polyethylene Glycol (Miralax) 17 gm PO DAILY PRN PRN Reason: Constipation Potassium Chloride (Klor-Con M20) 20 meq PO BIDMEALS [facility] Last Admin: 08/24/16 08:20 Dose: 20 meq Simvastatin (Zocor) 10 mg PO BEDTIME [facility] Last Admin: 08/23/16 21:38 Dose: 10 mg Sodium Chloride (Saline Flush) 10 ml FLUSH ASDIRECTED PRN PRN Reason: Keep Vein Open Sucralfate (Carafate) 1 gm PO QIDACANDBED [facility] Last Admin: 08/24/16 11:52 Dose: 1 gm Trazodone HCl (Trazodone) 50 mg PO BEDTIME [facility] Last Admin: 08/23/16 21:38 Dose: 50 mg Verapamil HCl (Calan Sr) 180 mg PO BIDAC [facility] Last Admin: 08/24/16 08:05 Dose: 180 mg Discontinued Medications Magnesium Sulfate 2 gm/ Premix 50 mls @ 25 mls/hr IV Q6H [facility] Stop: 08/24/16 04:29 Magnesium Sulfate 2 gm/ Premix 50 mls @ 25 mls/hr IV Q6H [facility] Stop: 08/24/16 04:29 Last Admin: 08/23/16 21:25 Dose: 25 mls/hr Insulin Aspart (Novolog) 0 unit SUBCUT ASDIRECTED PRN; Protocol PRN Reason: SEE PROTOCOL Insulin Aspart (Novolog) 12 unit SUBCUT ONETIME ONE Stop: 08/22/16 17:31 Last Admin: 08/22/16 17:55 Dose: 12 units Insulin Aspart (Novolog) 12 unit SUBCUT ONETIME ONE Stop: 08/22/16 21:14 Last Admin: 08/22/16 21:24 Dose: 12 units Insulin Aspart (Novolog) 10 unit SUBCUT ONETIME ONE Stop: 08/23/16 08:16 Last Admin: 08/23/16 10:16 Dose: 10 units Insulin Aspart (Novolog) 12 unit SUBCUT ONETIME ONE Stop: 08/23/16 12:01 Last Admin: 08/23/16 13:25 Dose: 12 units Insulin Aspart (Novolog) 14 unit SUBCUT ONETIME ONE Stop: 08/23/16 17:31 Last Admin: 08/23/16 17:50 Dose: 14 units Insulin Aspart (Novolog) 14 unit SUBCUT ONETIME ONE PRN Reason: Protocol Stop: 08/23/16 21:14 Last Admin: 08/23/16 21:29 Dose: 14 units Insulin Detemir (Levemir) 30 unit SUBCUT BEDTIME [facility] Last Admin: 08/23/16 21:28 Dose: 30 units Insulin Detemir (Levemir) 20 unit SUBCUT DAILY [facility] Last Admin: 08/24/16 08:16 Dose: 20 units Methylprednisolone Sodium Succinate (Solu-Medrol) 125 mg IVPUSH ONETIME ONE Stop: 08/22/16 11:46 Last Admin: 08/22/16 12:03 Dose: 125 mg - Exam Quality Assessment: supplemental oxygen, DVT prophylaxis General: alert, oriented, cooperative, mild distress Lungs: Decreased breath sounds. No: Crackles, Rales, Rhonchi, Rub, Stridor, Wheezing Cardiovascular: Regular Rate, Regular Rhythm, No Murmurs Abdomen: bowel sounds present, soft, no tenderness, no distension Back Exam: vertebral tenderness Extremities: no edema Skin: warm, dry, intact - Problem List Review Problem List Initiated/Reviewed/Updated: Yes - My Orders Last 24 Hours: My Active Orders 08/24/16 13:28 Insulin Detemir [Levemir] 40 unit SUBCUT BEDTIME 08/24/16 16:30 GLUCOSE POC LAB TO COLLECT [POC] QIDACANDBED 08/24/16 21:00 GLUCOSE POC LAB TO COLLECT [POC] QIDACANDBED 08/25/16 07:30 GLUCOSE POC LAB TO COLLECT [POC] QIDACANDBED 08/25/16 09:00 Insulin Detemir [Levemir] 40 unit SUBCUT DAILY 08/25/16 11:30 GLUCOSE POC LAB TO COLLECT [POC] QIDACANDBED 08/25/16 16:30 GLUCOSE POC LAB TO COLLECT [POC] QIDACANDBED 08/25/16 21:00 GLUCOSE POC LAB TO COLLECT [POC] QIDACANDBED 08/26/16 07:30 GLUCOSE POC LAB TO COLLECT [POC] QIDACANDBED 08/26/16 11:30 GLUCOSE POC LAB TO COLLECT [POC] QIDACANDBED 08/26/16 16:30 GLUCOSE POC LAB TO COLLECT [POC] QIDACANDBED 08/26/16 21:00 GLUCOSE POC LAB TO COLLECT [POC] QIDACANDBED 08/27/16 07:30 GLUCOSE POC LAB TO COLLECT [POC] QIDACANDBED 08/27/16 11:30 GLUCOSE POC LAB TO COLLECT [POC] QIDACANDBED 08/27/16 16:30 GLUCOSE POC LAB TO COLLECT [POC] QIDACANDBED 08/27/16 21:00 GLUCOSE POC LAB TO COLLECT [POC] QIDACANDBED 08/28/16 07:30 GLUCOSE POC LAB TO COLLECT [POC] QIDACANDBED 08/28/16 11:30 GLUCOSE POC LAB TO COLLECT [POC] QIDACANDBED 08/28/16 16:30 GLUCOSE POC LAB TO COLLECT [POC] QIDACANDBED 08/28/16 21:00 GLUCOSE POC LAB TO COLLECT [POC] QIDACANDBED 08/29/16 07:30 GLUCOSE POC LAB TO COLLECT [POC] QIDACANDBED 08/29/16 11:30 GLUCOSE POC LAB TO COLLECT [POC] QIDACANDBED 08/29/16 16:30 GLUCOSE POC LAB TO COLLECT [POC] QIDACANDBED 08/29/16 21:00 GLUCOSE POC LAB TO COLLECT [POC] QIDACANDBED 08/30/16 07:30 GLUCOSE POC LAB TO COLLECT [POC] QIDACANDBED 08/30/16 11:30 GLUCOSE POC LAB TO COLLECT [POC] QIDACANDBED 08/30/16 16:30 GLUCOSE POC LAB TO COLLECT [POC] QIDACANDBED 08/30/16 21:00 GLUCOSE POC LAB TO COLLECT [POC] QIDACANDBED 08/31/16 07:30 GLUCOSE POC LAB TO COLLECT [POC] QIDACANDBED 08/31/16 11:30 GLUCOSE POC LAB TO COLLECT [POC] QIDACANDBED 08/31/16 16:30 GLUCOSE POC LAB TO COLLECT [POC] QIDACANDBED 08/31/16 21:00 GLUCOSE POC LAB TO COLLECT [POC] QIDACANDBED 09/01/16 07:30 GLUCOSE POC LAB TO COLLECT [POC] QIDACANDBED 09/01/16 11:30 GLUCOSE POC LAB TO COLLECT [POC] QIDACANDBED 09/01/16 16:30 GLUCOSE POC LAB TO COLLECT [POC] QIDACANDBED 09/01/16 21:00 GLUCOSE POC LAB TO COLLECT [POC] QIDACANDBED 09/02/16 07:30 GLUCOSE POC LAB TO COLLECT [POC] QIDACANDBED 09/02/16 11:30 GLUCOSE POC LAB TO COLLECT [POC] QIDACANDBED - Plan Plan:: Assessment/Plan Comment:: ASSESSMENT AND PLAN EXACERBATION OF CHRONIC LUNG DISEASE-she has known and long-standing significant pulmonary disease secondary to her underlying rheumatoid arthritis. She uses oxygen chronically at home and is on long-term prednisone therapy. Over the past few days his had increased shortness of breath. Denies significant fevers, chills, and chest x-ray shows no obvious infiltrates. White blood cell count is modestly elevated, she is on chronic therapy with prednisone. No evidence of significant pulmonary edema secondary to congestive heart failure. Shortness of breath is improved modestly since admission -Supplemental oxygen as needed -Nebulizer therapy with albuterol and duo nebs -Solu-Medrol 40 mg IV every 12 hours -Continue outpatient oral antibiotic therapy with clindamycin T5 spinal compression fracture-pain seems to radiate from the back and around to the lower chest upper abdomen. -Physical therapy -Pain medication as needed TYPE 2 DIABETES MELLITUS-blood sugars have been running high secondary to current therapy with Solu-Medrol -Increase long-acting insulin to twice daily while on Solu-Medrol -Continue NovoLog 10 units subcutaneous with each meal -4 times a day glucometers -Moderate dose sliding scale NovoLog HISTORY OF CONGESTIVE HEART FAILURE-seems to be well compensated at this time -Continue outpatient medical regimen MAINTENANCE ISSUES -DVT prophylaxis; Lovenox 40 mg subcutaneous daily -GI prophylaxis; continue oral PPI therapy -Dougherty catheter; not indicated -Nutrition; 2 g sodium and consistent carb diet -Nicotine dependence; not required CODE STATUS-DNR/DNI ADMISSION STATUS-patient will be admitted to inpatient status, expect at least a 2 night hospital stay for evaluation and management of problems as outlined above. At the time of this admission I do not reasonably expected evaluation and management of this problem will require more than a 96 hour hospital stay. DISPOSITION-anticipate discharge to home after the hospital stay. PRIMARY CARE PROVIDER-Dr. Gonsalez
[2016-08-24] MEDS: Enoxaparin 40 MG/0.4 ML Syringe SUBCUT SCH (17:15)
[2016-08-24] MEDS: Metoprolol Succinate 25 MG Tab.ER PO SCH (20:49)
[2016-08-24] MEDS: Simvastatin 20 MG Tab PO SCH (20:50)
[2016-08-24] MEDS: traZODone 50 MG Tab PO SCH (20:51)
[2016-08-24] MEDS: ESCITALOPRAM PO SCH ×2 (20:52)
[2016-08-25] MEDS: methylPREDNISolone Sodium Succinate 40 MG/1 ML SDV IVPUSH SCH ×3 (00:02→12:02)
[2016-08-25] MEDS: HYDROmorphone 0.5 MG/0.5 ML Syringe IVPUSH PRN ×3 (05:53→22:02)
[2016-08-25] MEDS: Verapamil 180 MG Tab.ER PO SCH ×2 (07:09→16:55)
[2016-08-25] MEDS: Sucralfate 1 GM Tab PO SCH ×4 (07:09→20:06)
[2016-08-25] MEDS: Pantoprazole 40 MG Tab.CR PO SCH (07:10)
[2016-08-25] MEDS: Potassium Chloride 20 MEQ Tab.ER PO SCH ×2 (07:11→16:53)
[2016-08-25] MEDS: Bumetanide 1 MG Tab PO SCH ×2 (07:11→14:27)
[2016-08-25] MEDS: Formoterol/Mometasone 200-5 MCG 8.8 GM Inhaler IH SCH ×2 (07:56→20:08)
[2016-08-25] MEDS: Albuterol/Ipratropium 3.0-0.5 MG/3 ML Neb Soln INH SCH ×4 (07:57→21:45)
[2016-08-25] MEDS: Aspirin 81 MG Tab.Chew PO SCH (08:45)
[2016-08-25] MEDS: Clindamycin HCl 150 MG Cap PO SCH ×3 (08:46→20:06)
[2016-08-25] MEDS: Lactobacillus Rhamnosus GG (Probiotic) Cap PO SCH ×2 (08:46→20:06)
[2016-08-25] MEDS: Isosorbide Mononitrate 30 MG Tab.ER PO SCH (08:47)
[2016-08-25] MEDS: Oxybutynin 5 MG Tab PO SCH ×2 (08:48→20:06)
[2016-08-25] MEDS: Gabapentin 300 MG Cap PO SCH ×2 (08:48→20:06)
[2016-08-25] MEDS: Magnesium Oxide 400 MG Tab PO SCH ×2 (08:48→20:06)
[2016-08-25] MEDS: Lisinopril 20 MG Tab PO SCH (08:49)
[2016-08-25] MEDS: Insulin Aspart 100 Units/ML 3 ML Pen SUBCUT SCH ×7 (08:51→21:47)
[2016-08-25] MEDS: Insulin Detemir 100 Units/ML 3 ML Pen SUBCUT SCH ×2 (09:00→21:46)
--- NOTE | 2016-08-25 14:07 | PCM.PN ---
- General Info Date of Service: 08/25/16 Functional Status: Reports: pain controlled, tolerating diet, urinating - Review of Systems General: Reports: Weakness. Denies: Fever, Chills Pulmonary: Reports: shortness of breath, cough. Denies: pleuritic chest pain, sputum, hemoptysis, wheezing Cardiovascular: Reports: Dyspnea on Exertion. Denies: Chest Pain, Palpitations , Orthopnea, PND, Edema, Lightheadedness Gastrointestinal: Reports: No symptoms Systems Review Comment:: Dipti is not feeling as well this morning, somewhat more short of breath and weak. She's had ongoing difficulty with back pain secondary to her T5 spinal compression fracture. Vital signs have been stable and she has remained afebrile. Leukos control has improved with increased dose of insulin. - Patient Data Vitals - most recent: Last Vital Signs Temp 98.1 F 08/25/16 11:25 Pulse 83 08/25/16 11:25 Resp 18 08/25/16 11:25 BP 105/59 L 08/25/16 11:25 Pulse Ox 87 L 08/25/16 11:25 Weight - most recent: 302 lb 0.533 oz I&O - last 24 hours: Intake & Output 08/24/16 08/25/16 08/25/16 22:59 06:59 14:59 Intake Total 480 360 Output Total 400 1000 Balance 80 360 -1000 Med Orders - Current: Current Medications Acetaminophen (Tylenol) 650 mg PO Q4H PRN PRN Reason: Pain (Mild 1-3)/fever Last Admin: 08/23/16 01:01 Dose: 650 mg Albuterol (Proventil Neb Soln) 2.5 mg NEB Q4H PRN PRN Reason: Shortness Of Breath/wheezing Albuterol/Ipratropium (Duoneb 3.0-0.5 Mg/3 Ml) 3 ml INH QIDRT [facility] Last Admin: 08/25/16 11:07 Dose: 3 ml Aspirin (Aspirin) 81 mg PO DAILY [facility] Last Admin: 08/25/16 08:45 Dose: 81 mg Azathioprine (Imuran) 150 mg PO DAILY [facility] Last Admin: 08/25/16 08:48 Dose: 150 mg Bacitracin (Bacitracin Oint 1 Gm) 1 dose TOP ASDIRECTED PRN PRN Reason: sore left arm Last Admin: 08/22/16 18:55 Dose: 1 dose Bumetanide (Bumex) 2 mg PO BIDDIURETIC [facility] Last Admin: 08/25/16 07:11 Dose: 2 mg Clindamycin HCl (Cleocin) 300 mg PO TID [facility] Last Admin: 08/25/16 08:46 Dose: 300 mg Clotrimazole (Mycelex) 10 mg PO 5XDAY [facility] Cyclobenzaprine HCl (Flexeril) 10 mg PO TID PRN PRN Reason: Pain Dextrose (Glutose 15) 15 gm PO ONETIME PRN PRN Reason: Hypoglycemia Dextrose/Water (Dextrose 50% In Water) 50 ml IV ONETIME PRN PRN Reason: Hypoglycemia Docusate Sodium (Colace) 100 mg PO BID PRN PRN Reason: Constipation Enoxaparin Sodium (Lovenox) 40 mg SUBCUT Q24H [facility] Last Admin: 08/24/16 17:15 Dose: 40 mg Escitalopram Oxalate 10 mg/ (Escitalopram Oxalate 20 mg) 30 mg PO BEDTIME [facility] Last Admin: 08/24/16 20:52 Dose: 30 mg Gabapentin (Neurontin) 300 mg PO BID [facility] Last Admin: 08/25/16 08:48 Dose: 300 mg Heparin Sodium (Porcine) (Heparin Lock Flush 100 Units/Ml Syringe) 500 units FLUSH ASDIRECTED PRN PRN Reason: Other Last Admin: 08/25/16 05:46 Dose: 500 units Hydromorphone HCl (Dilaudid) 0.5 mg IVPUSH Q4H PRN PRN Reason: Pain Last Admin: 08/25/16 05:53 Dose: 0.5 mg Insulin Aspart (Novolog) 10 unit SUBCUT TIDMEALS [facility] Last Admin: 08/25/16 11:59 Dose: 10 units Insulin Aspart (Novolog) 0 unit SUBCUT ASDIRECTED [facility] PRN Reason: Protocol Last Admin: 08/25/16 12:00 Dose: 6 units Insulin Detemir (Levemir) 40 unit SUBCUT BEDTIME [facility] Last Admin: 08/24/16 21:06 Dose: 40 units Insulin Detemir (Levemir) 40 unit SUBCUT DAILY [facility] Last Admin: 08/25/16 09:00 Dose: 40 units Isosorbide Mononitrate (Imdur) 30 mg PO DAILY [facility] Last Admin: 08/25/16 08:47 Dose: 30 mg Lactobacillus Rhamnosus (Culturelle) 1 cap PO BID [facility] Last Admin: 08/25/16 08:46 Dose: 1 cap Lisinopril (Prinivil) 20 mg PO DAILY [facility] Last Admin: 08/25/16 08:49 Dose: 20 mg Lorazepam (Ativan) 0.5 mg PO Q4H PRN PRN Reason: Anxiety Last Admin: 08/23/16 21:20 Dose: 0.5 mg Magnesium Hydroxide (Milk Of Magnesia) 30 ml PO Q12H PRN PRN Reason: Constipation Magnesium Oxide (Magnesium Oxide) 400 mg PO BID [facility] Last Admin: 08/25/16 08:48 Dose: 400 mg Metformin HCl (Glucophage) 850 mg PO BIDMEALS [facility] Last Admin: 08/25/16 07:11 Dose: 850 mg Metoprolol Succinate (Toprol Xl) 25 mg PO BEDTIME [facility] Last Admin: 08/24/16 20:49 Dose: 25 mg Mometasone Furoate/Formoterol Fumar (Dulera 200-5 Mcg) 2 puff IH BIDRT [facility] Last Admin: 08/25/16 07:56 Dose: 2 puff Morphine Sulfate (Morphine) 30 mg PO Q4H PRN PRN Reason: PAIN Last Admin: 08/25/16 08:52 Dose: 30 mg Ondansetron HCl (Zofran) 4 mg IV Q4H PRN PRN Reason: Nausea/Vomiting Last Admin: 08/23/16 16:02 Dose: 4 mg Ondansetron HCl (Zofran Odt) 4 mg PO Q4H PRN PRN Reason: Nausea/Vomiting Last Admin: 08/24/16 03:29 Dose: 4 mg Oxybutynin Chloride (Oxybutynin) 5 mg PO BID [facility] Last Admin: 08/25/16 08:48 Dose: 5 mg Pantoprazole Sodium (Protonix) 40 mg PO DAILY@0730 [facility] Last Admin: 08/25/16 07:10 Dose: 40 mg Polyethylene Glycol (Miralax) 17 gm PO DAILY PRN PRN Reason: Constipation Potassium Chloride (Klor-Con M20) 20 meq PO BIDMEALS [facility] Last Admin: 08/25/16 07:11 Dose: 20 meq Prednisone (Prednisone) 40 mg PO DAILY [facility] Simvastatin (Zocor) 10 mg PO BEDTIME [facility] Last Admin: 08/24/16 20:50 Dose: 10 mg Sodium Chloride (Saline Flush) 10 ml FLUSH ASDIRECTED PRN PRN Reason: Keep Vein Open Sucralfate (Carafate) 1 gm PO QIDACANDBED [facility] Last Admin: 08/25/16 11:58 Dose: 1 gm Trazodone HCl (Trazodone) 50 mg PO BEDTIME [facility] Last Admin: 08/24/16 20:51 Dose: 50 mg Verapamil HCl (Calan Sr) 180 mg PO BIDAC [facility] Last Admin: 08/25/16 07:09 Dose: 180 mg Discontinued Medications Magnesium Sulfate 2 gm/ Premix 50 mls @ 25 mls/hr IV Q6H [facility] Stop: 08/24/16 04:29 Magnesium Sulfate 2 gm/ Premix 50 mls @ 25 mls/hr IV Q6H [facility] Stop: 08/24/16 04:29 Last Admin: 08/23/16 21:25 Dose: 25 mls/hr Insulin Aspart (Novolog) 0 unit SUBCUT ASDIRECTED PRN; Protocol PRN Reason: SEE PROTOCOL Insulin Aspart (Novolog) 12 unit SUBCUT ONETIME ONE Stop: 08/22/16 17:31 Last Admin: 08/22/16 17:55 Dose: 12 units Insulin Aspart (Novolog) 12 unit SUBCUT ONETIME ONE Stop: 08/22/16 21:14 Last Admin: 08/22/16 21:24 Dose: 12 units Insulin Aspart (Novolog) 10 unit SUBCUT ONETIME ONE Stop: 08/23/16 08:16 Last Admin: 08/23/16 10:16 Dose: 10 units Insulin Aspart (Novolog) 12 unit SUBCUT ONETIME ONE Stop: 08/23/16 12:01 Last Admin: 08/23/16 13:25 Dose: 12 units Insulin Aspart (Novolog) 14 unit SUBCUT ONETIME ONE Stop: 08/23/16 17:31 Last Admin: 08/23/16 17:50 Dose: 14 units Insulin Aspart (Novolog) 14 unit SUBCUT ONETIME ONE PRN Reason: Protocol Stop: 08/23/16 21:14 Last Admin: 08/23/16 21:29 Dose: 14 units Insulin Detemir (Levemir) 30 unit SUBCUT BEDTIME [facility] Last Admin: 08/23/16 21:28 Dose: 30 units Insulin Detemir (Levemir) 20 unit SUBCUT DAILY [facility] Last Admin: 08/24/16 08:16 Dose: 20 units Methylprednisolone Sodium Succinate (Solu-Medrol) 125 mg IVPUSH ONETIME ONE Stop: 08/22/16 11:46 Last Admin: 08/22/16 12:03 Dose: 125 mg Methylprednisolone Sodium Succinate (Solu-Medrol) 40 mg IVPUSH Q6H [facility] Last Admin: 08/25/16 12:02 Dose: 40 mg - Exam Quality Assessment: supplemental oxygen, DVT prophylaxis General: alert, oriented, cooperative, mild distress Lungs: Clear to auscultation, Decreased breath sounds. No: Crackles, Rales, Rhonchi, Rub, Stridor, Wheezing Cardiovascular: Regular Rate, Regular Rhythm, No Murmurs Abdomen: bowel sounds present, soft, no tenderness, no distension Extremities: no edema Skin: warm, dry, intact - Problem List Review Problem List Initiated/Reviewed/Updated: Yes - My Orders Last 24 Hours: My Active Orders 08/24/16 13:28 Insulin Detemir [Levemir] 40 unit SUBCUT BEDTIME 08/25/16 09:00 Insulin Detemir [Levemir] 40 unit SUBCUT DAILY 08/25/16 16:30 GLUCOSE POC LAB TO COLLECT [POC] QIDACANDBED 08/25/16 18:00 Clotrimazole [Mycelex] 10 mg PO 5XDAY 08/25/16 21:00 GLUCOSE POC LAB TO COLLECT [POC] QIDACANDBED 08/26/16 07:30 GLUCOSE POC LAB TO COLLECT [POC] QIDACANDBED 08/26/16 09:00 predniSONE 40 mg PO DAILY 08/26/16 11:30 GLUCOSE POC LAB TO COLLECT [POC] QIDACANDBED 08/26/16 16:30 GLUCOSE POC LAB TO COLLECT [POC] QIDACANDBED 08/26/16 21:00 GLUCOSE POC LAB TO COLLECT [POC] QIDACANDBED 08/27/16 07:30 GLUCOSE POC LAB TO COLLECT [POC] QIDACANDBED 08/27/16 11:30 GLUCOSE POC LAB TO COLLECT [POC] QIDACANDBED 08/27/16 16:30 GLUCOSE POC LAB TO COLLECT [POC] QIDACANDBED 08/27/16 21:00 GLUCOSE POC LAB TO COLLECT [POC] QIDACANDBED 08/28/16 07:30 GLUCOSE POC LAB TO COLLECT [POC] QIDACANDBED 08/28/16 11:30 GLUCOSE POC LAB TO COLLECT [POC] QIDACANDBED 08/28/16 16:30 GLUCOSE POC LAB TO COLLECT [POC] QIDACANDBED 08/28/16 21:00 GLUCOSE POC LAB TO COLLECT [POC] QIDACANDBED 08/29/16 07:30 GLUCOSE POC LAB TO COLLECT [POC] QIDACANDBED 08/29/16 11:30 GLUCOSE POC LAB TO COLLECT [POC] QIDACANDBED 08/29/16 16:30 GLUCOSE POC LAB TO COLLECT [POC] QIDACANDBED 08/29/16 21:00 GLUCOSE POC LAB TO COLLECT [POC] QIDACANDBED 08/30/16 07:30 GLUCOSE POC LAB TO COLLECT [POC] QIDACANDBED 08/30/16 11:30 GLUCOSE POC LAB TO COLLECT [POC] QIDACANDBED 08/30/16 16:30 GLUCOSE POC LAB TO COLLECT [POC] QIDACANDBED 08/30/16 21:00 GLUCOSE POC LAB TO COLLECT [POC] QIDACANDBED 08/31/16 07:30 GLUCOSE POC LAB TO COLLECT [POC] QIDACANDBED 08/31/16 11:30 GLUCOSE POC LAB TO COLLECT [POC] QIDACANDBED 08/31/16 16:30 GLUCOSE POC LAB TO COLLECT [POC] QIDACANDBED 08/31/16 21:00 GLUCOSE POC LAB TO COLLECT [POC] QIDACANDBED 09/01/16 07:30 GLUCOSE POC LAB TO COLLECT [POC] QIDACANDBED 09/01/16 11:30 GLUCOSE POC LAB TO COLLECT [POC] QIDACANDBED 09/01/16 16:30 GLUCOSE POC LAB TO COLLECT [POC] QIDACANDBED 09/01/16 21:00 GLUCOSE POC LAB TO COLLECT [POC] QIDACANDBED 09/02/16 07:30 GLUCOSE POC LAB TO COLLECT [POC] QIDACANDBED 09/02/16 11:30 GLUCOSE POC LAB TO COLLECT [POC] QIDACANDBED - Plan Plan:: Assessment/Plan Comment:: ASSESSMENT AND PLAN EXACERBATION OF CHRONIC LUNG DISEASE-she has known and long-standing significant pulmonary disease secondary to her underlying rheumatoid arthritis. She uses oxygen chronically at home and is on long-term prednisone therapy. Feeling somewhat more short of breath this morning, and more weak. -Supplemental oxygen as needed -Nebulizer therapy with albuterol and duo nebs -Discontinue Solu-Medrol -Prednisone 40 mg by mouth daily -Continue outpatient oral antibiotic therapy with clindamycin T5 spinal compression fracture-pain seems to radiate from the back and around to the lower chest upper abdomen. -Physical therapy -Pain medication as needed TYPE 2 DIABETES MELLITUS-glucose levels have been improved with increased dose of insulin -Increase long-acting insulin to twice daily while on Solu-Medrol -Continue NovoLog 10 units subcutaneous with each meal -4 times a day glucometers -Moderate dose sliding scale NovoLog HISTORY OF CONGESTIVE HEART FAILURE-seems to be well compensated at this time -Continue outpatient medical regimen MAINTENANCE ISSUES -DVT prophylaxis; Lovenox 40 mg subcutaneous daily -GI prophylaxis; continue oral PPI therapy -Dougherty catheter; not indicated -Nutrition; 2 g sodium and consistent carb diet -Nicotine dependence; not required CODE STATUS-DNR/DNI ADMISSION STATUS-patient will be admitted to inpatient status, expect at least a 2 night hospital stay for evaluation and management of problems as outlined above. At the time of this admission I do not reasonably expected evaluation and management of this problem will require more than a 96 hour hospital stay. DISPOSITION-anticipate discharge to home after the hospital stay. PRIMARY CARE PROVIDER-Dr. Gonsalez
[2016-08-25] MEDS: Enoxaparin 40 MG/0.4 ML Syringe SUBCUT SCH (16:52)
[2016-08-25] MEDS: Clotrimazole 10 MG Troche PO SCH ×2 (17:09→21:50)
[2016-08-25] MEDS: LORazepam 0.5 MG Tab PO PRN ×2 (17:10→22:01)
[2016-08-25] MEDS: Bacitracin Oint 1 GM U/D Packet TOP PRN (17:19)
[2016-08-25] MEDS: Simvastatin 20 MG Tab PO SCH (20:06)
[2016-08-25] MEDS: traZODone 50 MG Tab PO SCH (20:07)
[2016-08-25] MEDS: ESCITALOPRAM PO SCH ×2 (20:08)
[2016-08-25] MEDS: Metoprolol Succinate 25 MG Tab.ER PO SCH (22:07)
[2016-08-26] MEDS: Clotrimazole 10 MG Troche PO SCH ×5 (05:48→21:26)
[2016-08-26] MEDS: Albuterol/Ipratropium 3.0-0.5 MG/3 ML Neb Soln INH SCH ×4 (07:17→21:23)
[2016-08-26] MEDS: Formoterol/Mometasone 200-5 MCG 8.8 GM Inhaler IH SCH ×2 (07:17→21:23)
[2016-08-26] MEDS: Pantoprazole 40 MG Tab.CR PO SCH (08:02)
[2016-08-26] MEDS: Sucralfate 1 GM Tab PO SCH ×4 (08:02→21:22)
[2016-08-26] MEDS: Verapamil 180 MG Tab.ER PO SCH ×2 (08:02→16:51)
[2016-08-26] MEDS: Bumetanide 1 MG Tab PO SCH ×2 (08:02→13:44)
[2016-08-26] MEDS: HYDROmorphone 0.5 MG/0.5 ML Syringe IVPUSH PRN ×2 (09:24→22:10)
[2016-08-26] MEDS: Lisinopril 20 MG Tab PO SCH (09:33)
[2016-08-26] MEDS: Clindamycin HCl 150 MG Cap PO SCH ×3 (09:33→21:22)
[2016-08-26] MEDS: Aspirin 81 MG Tab.Chew PO SCH (09:33)
[2016-08-26] MEDS: Potassium Chloride 20 MEQ Tab.ER PO SCH ×2 (09:33→16:51)
[2016-08-26] MEDS: Lactobacillus Rhamnosus GG (Probiotic) Cap PO SCH ×2 (09:34→21:23)
[2016-08-26] MEDS: Oxybutynin 5 MG Tab PO SCH ×2 (09:34→21:25)
[2016-08-26] MEDS: predniSONE 20 MG Tab PO SCH (09:34)
[2016-08-26] MEDS: Gabapentin 300 MG Cap PO SCH ×2 (09:34→21:25)
[2016-08-26] MEDS: Isosorbide Mononitrate 30 MG Tab.ER PO SCH (09:34)
[2016-08-26] MEDS: Magnesium Oxide 400 MG Tab PO SCH ×2 (09:35→21:22)
[2016-08-26] MEDS: Insulin Detemir 100 Units/ML 3 ML Pen SUBCUT SCH ×2 (09:39→21:26)
[2016-08-26] MEDS: Insulin Aspart 100 Units/ML 3 ML Pen SUBCUT SCH ×7 (09:40→21:29)
--- NOTE | 2016-08-26 10:47 | PCM.PN ---
- General Info Date of Service: 08/26/16 Functional Status: Reports: pain controlled, tolerating diet, urinating - Review of Systems General: Reports: Weakness Pulmonary: Reports: shortness of breath Cardiovascular: Reports: Chest Pain Musculoskeletal: Reports: back pain Systems Review Comment:: No acute events overnight. Still complaining of significant pain starting between her shoulder blades and wrapping around to the right side of her chest. She is comfortable as long as she is sitting perfectly still but quickly becomes uncomfortable with any movement. Has pain with every breath. She has not had any fevers. She is on her usual amount of oxygen but feels short of breath despite normal oxygen saturations. Blood sugars have remained moderately elevated despite stopping IV steroids. - Patient Data Vitals - most recent: Last Vital Signs Temp 36.7 C 08/26/16 07:45 Pulse 79 08/26/16 07:45 Resp 16 08/26/16 07:45 BP 163/139 H 08/26/16 09:34 Pulse Ox 94 L 08/26/16 07:45 Weight - most recent: 137 kg I&O - last 24 hours: Intake & Output 08/25/16 08/26/16 08/26/16 22:59 06:59 14:59 Intake Total 360 Output Total 2250 1300 Balance -2250 -1300 360 Med Orders - Current: Current Medications Acetaminophen (Tylenol) 650 mg PO Q4H PRN PRN Reason: Pain (Mild 1-3)/fever Last Admin: 08/23/16 01:01 Dose: 650 mg Albuterol (Proventil Neb Soln) 2.5 mg NEB Q4H PRN PRN Reason: Shortness Of Breath/wheezing Last Admin: 08/25/16 15:50 Dose: 2.5 mg Albuterol/Ipratropium (Duoneb 3.0-0.5 Mg/3 Ml) 3 ml INH QIDRT [facility] Last Admin: 08/26/16 07:17 Dose: 3 ml Aspirin (Aspirin) 81 mg PO DAILY [facility] Last Admin: 08/26/16 09:33 Dose: 81 mg Azathioprine (Imuran) 150 mg PO DAILY [facility] Last Admin: 08/26/16 09:35 Dose: 150 mg Bacitracin (Bacitracin Oint 1 Gm) 1 dose TOP ASDIRECTED PRN PRN Reason: sore left arm Last Admin: 08/25/16 17:19 Dose: 1 dose Bumetanide (Bumex) 2 mg PO BIDDIURETIC [facility] Last Admin: 08/26/16 08:02 Dose: 2 mg Clindamycin HCl (Cleocin) 300 mg PO TID [facility] Last Admin: 08/26/16 09:33 Dose: 300 mg Clotrimazole (Mycelex) 10 mg PO 5XDAY [facility] Last Admin: 08/26/16 09:35 Dose: 10 mg Cyclobenzaprine HCl (Flexeril) 10 mg PO TID PRN PRN Reason: Pain Dextrose (Glutose 15) 15 gm PO ONETIME PRN PRN Reason: Hypoglycemia Dextrose/Water (Dextrose 50% In Water) 50 ml IV ONETIME PRN PRN Reason: Hypoglycemia Docusate Sodium (Colace) 100 mg PO BID PRN PRN Reason: Constipation Enoxaparin Sodium (Lovenox) 40 mg SUBCUT Q24H [facility] Last Admin: 08/25/16 16:52 Dose: 40 mg Escitalopram Oxalate 10 mg/ (Escitalopram Oxalate 20 mg) 30 mg PO BEDTIME [facility] Last Admin: 08/25/16 20:08 Dose: 30 mg Gabapentin (Neurontin) 300 mg PO BID [facility] Last Admin: 08/26/16 09:34 Dose: 300 mg Heparin Sodium (Porcine) (Heparin Lock Flush 100 Units/Ml Syringe) 500 units FLUSH ASDIRECTED PRN PRN Reason: Other Last Admin: 08/25/16 15:51 Dose: 500 units Hydromorphone HCl (Dilaudid) 0.5 mg IVPUSH Q4H PRN PRN Reason: Pain Last Admin: 08/26/16 09:24 Dose: 0.5 mg Insulin Aspart (Novolog) 10 unit SUBCUT TIDMEALS [facility] Last Admin: 08/26/16 09:40 Dose: 10 units Insulin Aspart (Novolog) 0 unit SUBCUT ASDIRECTED [facility] PRN Reason: Protocol Last Admin: 08/26/16 09:40 Dose: 6 units Insulin Detemir (Levemir) 40 unit SUBCUT BEDTIME [facility] Last Admin: 08/25/16 21:46 Dose: 40 units Insulin Detemir (Levemir) 40 unit SUBCUT DAILY [facility] Last Admin: 08/26/16 09:39 Dose: 40 units Isosorbide Mononitrate (Imdur) 30 mg PO DAILY [facility] Last Admin: 08/26/16 09:34 Dose: 30 mg Lactobacillus Rhamnosus (Culturelle) 1 cap PO BID [facility] Last Admin: 08/26/16 09:34 Dose: 1 cap Lisinopril (Prinivil) 20 mg PO DAILY [facility] Last Admin: 08/26/16 09:33 Dose: 20 mg Lorazepam (Ativan) 0.5 mg PO Q4H PRN PRN Reason: Anxiety Last Admin: 08/25/16 22:01 Dose: 0.5 mg Magnesium Hydroxide (Milk Of Magnesia) 30 ml PO Q12H PRN PRN Reason: Constipation Magnesium Oxide (Magnesium Oxide) 400 mg PO BID [facility] Last Admin: 08/26/16 09:35 Dose: 400 mg Metformin HCl (Glucophage) 850 mg PO BIDMEALS [facility] Last Admin: 08/26/16 08:02 Dose: 850 mg Metoprolol Succinate (Toprol Xl) 25 mg PO BEDTIME [facility] Last Admin: 08/25/16 22:07 Dose: 25 mg Mometasone Furoate/Formoterol Fumar (Dulera 200-5 Mcg) 2 puff IH BIDRT [facility] Last Admin: 08/26/16 07:17 Dose: 2 puff Morphine Sulfate (Morphine) 30 mg PO Q4H PRN PRN Reason: PAIN Last Admin: 08/26/16 09:22 Dose: 30 mg Ondansetron HCl (Zofran) 4 mg IV Q4H PRN PRN Reason: Nausea/Vomiting Last Admin: 08/23/16 16:02 Dose: 4 mg Ondansetron HCl (Zofran Odt) 4 mg PO Q4H PRN PRN Reason: Nausea/Vomiting Last Admin: 08/24/16 03:29 Dose: 4 mg Oxybutynin Chloride (Oxybutynin) 5 mg PO BID [facility] Last Admin: 08/26/16 09:34 Dose: 5 mg Pantoprazole Sodium (Protonix) 40 mg PO DAILY@0730 [facility] Last Admin: 08/26/16 08:02 Dose: 40 mg Polyethylene Glycol (Miralax) 17 gm PO DAILY PRN PRN Reason: Constipation Potassium Chloride (Klor-Con M20) 20 meq PO BIDMEALS [facility] Last Admin: 08/26/16 09:33 Dose: 20 meq Prednisone (Prednisone) 40 mg PO DAILY [facility] Last Admin: 08/26/16 09:34 Dose: 40 mg Simvastatin (Zocor) 10 mg PO BEDTIME [facility] Last Admin: 08/25/16 20:06 Dose: 10 mg Sodium Chloride (Saline Flush) 10 ml FLUSH ASDIRECTED PRN PRN Reason: Keep Vein Open Sucralfate (Carafate) 1 gm PO QIDACANDBED [facility] Last Admin: 08/26/16 08:02 Dose: 1 gm Trazodone HCl (Trazodone) 50 mg PO BEDTIME [facility] Last Admin: 08/25/16 20:07 Dose: 50 mg Verapamil HCl (Calan Sr) 180 mg PO BIDAC [facility] Last Admin: 08/26/16 08:02 Dose: 180 mg Discontinued Medications Magnesium Sulfate 2 gm/ Premix 50 mls @ 25 mls/hr IV Q6H [facility] Stop: 08/24/16 04:29 Magnesium Sulfate 2 gm/ Premix 50 mls @ 25 mls/hr IV Q6H [facility] Stop: 08/24/16 04:29 Last Admin: 08/23/16 21:25 Dose: 25 mls/hr Insulin Aspart (Novolog) 0 unit SUBCUT ASDIRECTED PRN; Protocol PRN Reason: SEE PROTOCOL Insulin Aspart (Novolog) 12 unit SUBCUT ONETIME ONE Stop: 08/22/16 17:31 Last Admin: 08/22/16 17:55 Dose: 12 units Insulin Aspart (Novolog) 12 unit SUBCUT ONETIME ONE Stop: 08/22/16 21:14 Last Admin: 08/22/16 21:24 Dose: 12 units Insulin Aspart (Novolog) 10 unit SUBCUT ONETIME ONE Stop: 08/23/16 08:16 Last Admin: 08/23/16 10:16 Dose: 10 units Insulin Aspart (Novolog) 12 unit SUBCUT ONETIME ONE Stop: 08/23/16 12:01 Last Admin: 08/23/16 13:25 Dose: 12 units Insulin Aspart (Novolog) 14 unit SUBCUT ONETIME ONE Stop: 08/23/16 17:31 Last Admin: 08/23/16 17:50 Dose: 14 units Insulin Aspart (Novolog) 14 unit SUBCUT ONETIME ONE PRN Reason: Protocol Stop: 08/23/16 21:14 Last Admin: 08/23/16 21:29 Dose: 14 units Insulin Detemir (Levemir) 30 unit SUBCUT BEDTIME [facility] Last Admin: 08/23/16 21:28 Dose: 30 units Insulin Detemir (Levemir) 20 unit SUBCUT DAILY [facility] Last Admin: 08/24/16 08:16 Dose: 20 units Methylprednisolone Sodium Succinate (Solu-Medrol) 125 mg IVPUSH ONETIME ONE Stop: 08/22/16 11:46 Last Admin: 08/22/16 12:03 Dose: 125 mg Methylprednisolone Sodium Succinate (Solu-Medrol) 40 mg IVPUSH Q6H [facility] Last Admin: 08/25/16 12:02 Dose: 40 mg - Exam Quality Assessment: supplemental oxygen General: alert, oriented, cooperative, mild distress Neck: supple Lungs: Clear to auscultation, Normal respiratory effort. No: Wheezing Cardiovascular: Regular Rate, Regular Rhythm Abdomen: bowel sounds present, soft, no distension Extremities: no cyanosis, edema (trace bilateral ankle edema) Skin: warm, dry Psy/Mental Status: alert, normal affect - Problem List Review Problem List Initiated/Reviewed/Updated: Yes - My Orders Last 24 Hours: My Active Orders 08/27/16 05:00 BASIC METABOLIC PANEL,BMP [CHEM] Timed CBC W/O DIFF,HEMOGRAM [HEME] Timed (1) - Plan Plan:: Assessment/Plan Comment:: ASSESSMENT AND PLAN EXACERBATION OF CHRONIC LUNG DISEASE - known chronic lung disease with O2 dependence. Objectively seems fairly stable but subjectively still very short of breath. Seems to be tolerating transition to oral steroids so far. -Supplemental oxygen as needed -Nebulizer therapy with albuterol and duo nebs -Prednisone 40 mg by mouth daily -Continue outpatient oral antibiotic therapy with clindamycin T5 spinal compression fracture - pain seems to radiate from the back and around to the lower chest upper abdomen. -Physical therapy -Pain medication as needed TYPE 2 DIABETES MELLITUS - glucose levels still moderately elevated despite increased insulin dosing. -Continue Increased long-acting insulin -Continue NovoLog 10 units subcutaneous with each meal -4 times a day glucometers -Moderate dose sliding scale NovoLog HISTORY OF CONGESTIVE HEART FAILURE - seems to be well compensated at this time -Continue outpatient medical regimen MAINTENANCE ISSUES -DVT prophylaxis; Lovenox 40 mg subcutaneous daily -GI prophylaxis; continue oral PPI therapy -Dougherty catheter; not indicated -Nutrition; 2 g sodium and consistent carb diet DISPOSITION - anticipate discharge to home after the hospital stay. Saran Bolivar M.D.
[2016-08-26] MEDS: Ondansetron 4 MG Tab.DIS PO PRN (10:53)
[2016-08-26] MEDS: LORazepam 0.5 MG Tab PO PRN (13:54)
[2016-08-26] MEDS: Enoxaparin 40 MG/0.4 ML Syringe SUBCUT SCH (16:50)
[2016-08-26] MEDS: Metoprolol Succinate 25 MG Tab.ER PO SCH (21:22)
[2016-08-26] MEDS: ESCITALOPRAM PO SCH ×2 (21:24)
[2016-08-26] MEDS: Simvastatin 20 MG Tab PO SCH (21:25)
[2016-08-26] MEDS: traZODone 50 MG Tab PO SCH (21:26)
[2016-08-27] MEDS: HYDROmorphone 0.5 MG/0.5 ML Syringe IVPUSH PRN ×3 (02:16→22:01)
[2016-08-27] MEDS: Ondansetron 4 MG Tab.DIS PO PRN ×2 (02:22→20:02)
[2016-08-27] MEDS: Clotrimazole 10 MG Troche PO SCH ×5 (05:46→21:54)
[2016-08-27] MEDS: Sucralfate 1 GM Tab PO SCH ×4 (07:16→20:04)
[2016-08-27] MEDS: Pantoprazole 40 MG Tab.CR PO SCH (07:17)
[2016-08-27] MEDS: Verapamil 180 MG Tab.ER PO SCH ×2 (07:17→17:05)
[2016-08-27] MEDS: Albuterol/Ipratropium 3.0-0.5 MG/3 ML Neb Soln INH SCH ×4 (07:29→20:05)
[2016-08-27] MEDS: Formoterol/Mometasone 200-5 MCG 8.8 GM Inhaler IH SCH ×2 (07:29→20:04)
[2016-08-27] MEDS: Insulin Aspart 100 Units/ML 3 ML Pen SUBCUT SCH ×4 (08:17→18:14)
[2016-08-27] MEDS: Bumetanide 1 MG Tab PO SCH ×2 (08:21→14:15)
[2016-08-27] MEDS: Potassium Chloride 20 MEQ Tab.ER PO SCH ×2 (08:22→17:06)
[2016-08-27] MEDS: Lactobacillus Rhamnosus GG (Probiotic) Cap PO SCH ×2 (08:23→20:04)
[2016-08-27] MEDS: Isosorbide Mononitrate 30 MG Tab.ER PO SCH (08:23)
[2016-08-27] MEDS: Aspirin 81 MG Tab.Chew PO SCH (08:23)
[2016-08-27] MEDS: predniSONE 20 MG Tab PO SCH (08:25)
[2016-08-27] MEDS: Lisinopril 20 MG Tab PO SCH (08:25)
[2016-08-27] MEDS: Oxybutynin 5 MG Tab PO SCH ×2 (08:25→20:05)
[2016-08-27] MEDS: Gabapentin 300 MG Cap PO SCH ×2 (08:25→20:04)
[2016-08-27] MEDS: Magnesium Oxide 400 MG Tab PO SCH ×2 (08:25→20:04)
[2016-08-27] MEDS: Clindamycin HCl 150 MG Cap PO SCH ×3 (08:28→20:04)
[2016-08-27] MEDS: Insulin Detemir 100 Units/ML 3 ML Pen SUBCUT SCH ×2 (08:47→21:53)
--- NOTE | 2016-08-27 10:25 | PCM.PN ---
- General Info Date of Service: 08/27/16 Functional Status: Reports: pain controlled, tolerating diet, ambulating - Review of Systems General: Reports: Weakness Pulmonary: Reports: shortness of breath, cough Cardiovascular: Reports: Chest Pain Musculoskeletal: Reports: back pain Systems Review Comment:: no acute events overnight. Still feels short of breath and has some pain in her chest with coughing. She is short of breath with activity but this seems a little better. Oxygenation was improved last night with increased supplemental oxygen through the [employer] and ventilation system. No fevers. Not much of an appetite. Blood sugars have been very well controlled. - Patient Data Vitals - most recent: Last Vital Signs Temp 36.6 C 08/27/16 08:06 Pulse 78 08/27/16 08:06 Resp 12 08/27/16 08:06 BP 141/95 H 08/27/16 08:25 Pulse Ox 89 L 08/27/16 08:06 Weight - most recent: 137 kg I&O - last 24 hours: Intake & Output 08/26/16 08/27/16 08/27/16 22:59 06:59 14:59 Intake Total 360 500 360 Output Total 1000 300 Balance -640 200 360 Lab Results last 24 hrs: Laboratory Results - last 24 hr 08/27/16 08/27/16 Range/Units 04:50 04:50 WBC 7.9 (4.5-11.0) K/uL RBC 4.21 (3.30-5.50) M/uL Hgb 10.8 L (12.0-15.0) g/dL Hct 38.2 (36.0-48.0) % MCV 91 (80-98) fL MCH 26 L (27-31) pg MCHC 28 L (32-36) % Plt Count 302 (150-400) K/uL Sodium 149 H (140-148) mmol/L Potassium 4.1 (3.6-5.2) mmol/L Chloride 103 (100-108) mmol/L Carbon Dioxide 45 H (21-32) mmol/L Anion Gap 5.1 (5.0-14.0) mmol/L BUN 31 H D (7-18) mg/dL Creatinine 0.8 (0.6-1.0) mg/dL Est Cr Clr Drug Dosing 68.26 mL/min Estimated GFR (MDRD) > 60 (>60) Glucose 157 H (74-106) mg/dL Calcium 8.3 L (8.5-10.1) mg/dL Med Orders - Current: Current Medications Acetaminophen (Tylenol) 650 mg PO Q4H PRN PRN Reason: Pain (Mild 1-3)/fever Last Admin: 08/23/16 01:01 Dose: 650 mg Albuterol (Proventil Neb Soln) 2.5 mg NEB Q4H PRN PRN Reason: Shortness Of Breath/wheezing Last Admin: 08/25/16 15:50 Dose: 2.5 mg Albuterol/Ipratropium (Duoneb 3.0-0.5 Mg/3 Ml) 3 ml INH QIDRT [facility] Last Admin: 08/27/16 07:29 Dose: 3 ml Aspirin (Aspirin) 81 mg PO DAILY [facility] Last Admin: 08/27/16 08:23 Dose: 81 mg Azathioprine (Imuran) 150 mg PO DAILY [facility] Last Admin: 08/27/16 08:24 Dose: 150 mg Bacitracin (Bacitracin Oint 1 Gm) 1 dose TOP ASDIRECTED PRN PRN Reason: sore left arm Last Admin: 08/25/16 17:19 Dose: 1 dose Bumetanide (Bumex) 2 mg PO BIDDIURETIC [facility] Last Admin: 08/27/16 08:21 Dose: 2 mg Clindamycin HCl (Cleocin) 300 mg PO TID [facility] Last Admin: 08/27/16 08:28 Dose: 300 mg Clotrimazole (Mycelex) 10 mg PO 5XDAY [facility] Last Admin: 08/27/16 10:17 Dose: 10 mg Cyclobenzaprine HCl (Flexeril) 10 mg PO TID PRN PRN Reason: Pain Dextrose (Glutose 15) 15 gm PO ONETIME PRN PRN Reason: Hypoglycemia Dextrose/Water (Dextrose 50% In Water) 50 ml IV ONETIME PRN PRN Reason: Hypoglycemia Docusate Sodium (Colace) 100 mg PO BID PRN PRN Reason: Constipation Enoxaparin Sodium (Lovenox) 40 mg SUBCUT Q24H [facility] Last Admin: 08/26/16 16:50 Dose: 40 mg Escitalopram Oxalate 10 mg/ (Escitalopram Oxalate 20 mg) 30 mg PO BEDTIME [facility] Last Admin: 08/26/16 21:24 Dose: 30 mg Gabapentin (Neurontin) 300 mg PO BID [facility] Last Admin: 08/27/16 08:25 Dose: 300 mg Heparin Sodium (Porcine) (Heparin Lock Flush 100 Units/Ml Syringe) 500 units FLUSH ASDIRECTED PRN PRN Reason: Other Last Admin: 08/27/16 04:40 Dose: 500 units Hydromorphone HCl (Dilaudid) 0.5 mg IVPUSH Q4H PRN PRN Reason: Pain Last Admin: 08/27/16 02:16 Dose: 0.5 mg Insulin Aspart (Novolog) 10 unit SUBCUT TIDMEALS [facility] Last Admin: 08/27/16 08:17 Dose: 10 units Insulin Aspart (Novolog) 0 unit SUBCUT ASDIRECTED [facility] PRN Reason: Protocol Last Admin: 08/26/16 21:29 Dose: 3 units Insulin Detemir (Levemir) 40 unit SUBCUT BEDTIME [facility] Last Admin: 08/26/16 21:26 Dose: 40 units Insulin Detemir (Levemir) 40 unit SUBCUT DAILY [facility] Last Admin: 08/27/16 08:47 Dose: 40 units Isosorbide Mononitrate (Imdur) 30 mg PO DAILY [facility] Last Admin: 08/27/16 08:23 Dose: 30 mg Lactobacillus Rhamnosus (Culturelle) 1 cap PO BID [facility] Last Admin: 08/27/16 08:23 Dose: 1 cap Lisinopril (Prinivil) 20 mg PO DAILY [facility] Last Admin: 08/27/16 08:25 Dose: 20 mg Lorazepam (Ativan) 0.5 mg PO Q4H PRN PRN Reason: Anxiety Last Admin: 08/26/16 13:54 Dose: 0.5 mg Magnesium Hydroxide (Milk Of Magnesia) 30 ml PO Q12H PRN PRN Reason: Constipation Magnesium Oxide (Magnesium Oxide) 400 mg PO BID [facility] Last Admin: 08/27/16 08:25 Dose: 400 mg Metformin HCl (Glucophage) 850 mg PO BIDMEALS [facility] Last Admin: 08/27/16 08:22 Dose: 850 mg Metoprolol Succinate (Toprol Xl) 25 mg PO BEDTIME [facility] Last Admin: 08/26/16 21:22 Dose: 25 mg Mometasone Furoate/Formoterol Fumar (Dulera 200-5 Mcg) 2 puff IH BIDRT [facility] Last Admin: 08/27/16 07:29 Dose: 2 puff Morphine Sulfate (Morphine) 30 mg PO Q4H PRN PRN Reason: PAIN Last Admin: 08/26/16 13:54 Dose: 30 mg Ondansetron HCl (Zofran) 4 mg IV Q4H PRN PRN Reason: Nausea/Vomiting Last Admin: 08/23/16 16:02 Dose: 4 mg Ondansetron HCl (Zofran Odt) 4 mg PO Q4H PRN PRN Reason: Nausea/Vomiting Last Admin: 08/27/16 02:22 Dose: 4 mg Oxybutynin Chloride (Oxybutynin) 5 mg PO BID [facility] Last Admin: 08/27/16 08:25 Dose: 5 mg Pantoprazole Sodium (Protonix) 40 mg PO DAILY@0730 [facility] Last Admin: 08/27/16 07:17 Dose: 40 mg Polyethylene Glycol (Miralax) 17 gm PO DAILY PRN PRN Reason: Constipation Potassium Chloride (Klor-Con M20) 20 meq PO BIDMEALS [facility] Last Admin: 08/27/16 08:22 Dose: 20 meq Prednisone (Prednisone) 40 mg PO DAILY [facility] Last Admin: 08/27/16 08:25 Dose: 40 mg Simvastatin (Zocor) 10 mg PO BEDTIME [facility] Last Admin: 08/26/16 21:25 Dose: 10 mg Sodium Chloride (Saline Flush) 10 ml FLUSH ASDIRECTED PRN PRN Reason: Keep Vein Open Sucralfate (Carafate) 1 gm PO QIDACANDBED [facility] Last Admin: 08/27/16 07:16 Dose: 1 gm Trazodone HCl (Trazodone) 50 mg PO BEDTIME [facility] Last Admin: 08/26/16 21:26 Dose: 50 mg Verapamil HCl (Calan Sr) 180 mg PO BIDAC [facility] Last Admin: 08/27/16 07:17 Dose: 180 mg Discontinued Medications Magnesium Sulfate 2 gm/ Premix 50 mls @ 25 mls/hr IV Q6H [facility] Stop: 08/24/16 04:29 Magnesium Sulfate 2 gm/ Premix 50 mls @ 25 mls/hr IV Q6H [facility] Stop: 08/24/16 04:29 Last Admin: 08/23/16 21:25 Dose: 25 mls/hr Insulin Aspart (Novolog) 0 unit SUBCUT ASDIRECTED PRN; Protocol PRN Reason: SEE PROTOCOL Insulin Aspart (Novolog) 12 unit SUBCUT ONETIME ONE Stop: 08/22/16 17:31 Last Admin: 08/22/16 17:55 Dose: 12 units Insulin Aspart (Novolog) 12 unit SUBCUT ONETIME ONE Stop: 08/22/16 21:14 Last Admin: 08/22/16 21:24 Dose: 12 units Insulin Aspart (Novolog) 10 unit SUBCUT ONETIME ONE Stop: 08/23/16 08:16 Last Admin: 08/23/16 10:16 Dose: 10 units Insulin Aspart (Novolog) 12 unit SUBCUT ONETIME ONE Stop: 08/23/16 12:01 Last Admin: 08/23/16 13:25 Dose: 12 units Insulin Aspart (Novolog) 14 unit SUBCUT ONETIME ONE Stop: 08/23/16 17:31 Last Admin: 08/23/16 17:50 Dose: 14 units Insulin Aspart (Novolog) 14 unit SUBCUT ONETIME ONE PRN Reason: Protocol Stop: 08/23/16 21:14 Last Admin: 08/23/16 21:29 Dose: 14 units Insulin Detemir (Levemir) 30 unit SUBCUT BEDTIME [facility] Last Admin: 08/23/16 21:28 Dose: 30 units Insulin Detemir (Levemir) 20 unit SUBCUT DAILY [facility] Last Admin: 08/24/16 08:16 Dose: 20 units Methylprednisolone Sodium Succinate (Solu-Medrol) 125 mg IVPUSH ONETIME ONE Stop: 08/22/16 11:46 Last Admin: 08/22/16 12:03 Dose: 125 mg Methylprednisolone Sodium Succinate (Solu-Medrol) 40 mg IVPUSH Q6H [facility] Last Admin: 08/25/16 12:02 Dose: 40 mg - Exam Quality Assessment: supplemental oxygen General: alert, oriented, cooperative, no acute distress Neck: supple Lungs: Clear to auscultation, Normal respiratory effort, Crackles (rare at the bases) Cardiovascular: Regular Rate, Regular Rhythm, Murmurs (left lower sternal border ) Abdomen: soft, no distension Extremities: no edema, no cyanosis Skin: warm, dry - Problem List Review Problem List Initiated/Reviewed/Updated: Yes - Plan Plan:: Assessment/Plan Comment:: ASSESSMENT AND PLAN EXACERBATION OF CHRONIC OBSTRUCTIVE PULMONARY DISEASE - known chronic lung disease with O2 dependence. Objectively seems fairly stable but subjectively still very short of breath. she did better as far as oxygenation last night with increasing the supplemental oxygen to 4 L overnight. No evidence for acute infection at this time but still very symptomatic. -Supplemental oxygen as needed -Nebulizer therapy with albuterol and duo nebs -Prednisone 40 mg by mouth daily, plan to start to taper at the time of discharge -Continue outpatient oral antibiotic therapy with clindamycin T5 spinal compression fracture - pain seems to radiate from the back and around to the lower chest upper abdomen. pain fairly well-controlled at this point but still bothersome with activity. -Physical therapy -Pain medication as needed TYPE 2 DIABETES MELLITUS - glucose levels have been excellent the past 24 hours. -Continue Increased long-acting insulin -Continue NovoLog 10 units subcutaneous with each meal -4 times a day glucometers -Moderate dose sliding scale NovoLog HISTORY OF CONGESTIVE HEART FAILURE - seems to be well compensated at this time -Continue outpatient medical regimen MAINTENANCE ISSUES -DVT prophylaxis; Lovenox 40 mg subcutaneous daily -GI prophylaxis; continue oral PPI therapy -Dougherty catheter; not indicated -Nutrition; 2 g sodium and consistent carb diet DISPOSITION - anticipate discharge to home after the hospital stay, hopefully in the next day or 2 Saran Bolivar M.D.
[2016-08-27] MEDS: Enoxaparin 40 MG/0.4 ML Syringe SUBCUT SCH (17:04)
[2016-08-27] MEDS: ESCITALOPRAM PO SCH ×2 (20:03)
[2016-08-27] MEDS: traZODone 50 MG Tab PO SCH (20:05)
[2016-08-27] MEDS: Simvastatin 20 MG Tab PO SCH (20:07)
--- NOTE | 2016-08-27 21:47 | PCM.SN ---
- Free Text/Narrative Note: time; 21:39 o; call from [address] [place] [address] blood glucose >400 a; hyperglycemia p; order Novolog 15 units subcut. now. continue present plan of care.
[2016-08-27] MEDS: Metoprolol Succinate 25 MG Tab.ER PO SCH (21:53)
[2016-08-27] MEDS ORDERED: Insulin Aspart 100 Units/ML 3 ML Pen SUBCUT ONE (22:00)
[2016-08-27] MEDS: LORazepam 0.5 MG Tab PO PRN (22:01)
[2016-08-28] MEDS: Clotrimazole 10 MG Troche PO SCH ×3 (05:49→14:06)
[2016-08-28] MEDS: Formoterol/Mometasone 200-5 MCG 8.8 GM Inhaler IH SCH (07:19)
[2016-08-28] MEDS: Albuterol/Ipratropium 3.0-0.5 MG/3 ML Neb Soln INH SCH ×3 (07:19→14:35)
[2016-08-28] MEDS: Verapamil 180 MG Tab.ER PO SCH (07:42)
[2016-08-28] MEDS: Sucralfate 1 GM Tab PO SCH ×2 (07:42→11:10)
[2016-08-28] MEDS: Bumetanide 1 MG Tab PO SCH ×2 (07:43→14:12)
[2016-08-28] MEDS: Pantoprazole 40 MG Tab.CR PO SCH (07:43)
[2016-08-28] MEDS: Potassium Chloride 20 MEQ Tab.ER PO SCH (08:28)
[2016-08-28] MEDS: Clindamycin HCl 150 MG Cap PO SCH ×2 (08:29→14:17)
[2016-08-28] MEDS: Lactobacillus Rhamnosus GG (Probiotic) Cap PO SCH (08:29)
[2016-08-28] MEDS: Aspirin 81 MG Tab.Chew PO SCH (08:29)
[2016-08-28] MEDS: Isosorbide Mononitrate 30 MG Tab.ER PO SCH (08:30)
[2016-08-28] MEDS: Magnesium Oxide 400 MG Tab PO SCH (08:31)
[2016-08-28] MEDS: predniSONE 20 MG Tab PO SCH (08:32)
[2016-08-28] MEDS: Oxybutynin 5 MG Tab PO SCH (08:32)
[2016-08-28] MEDS: Lisinopril 20 MG Tab PO SCH (08:32)
[2016-08-28] MEDS: Gabapentin 300 MG Cap PO SCH (08:32)
[2016-08-28] MEDS: Insulin Aspart 100 Units/ML 3 ML Pen SUBCUT SCH ×4 (08:39→12:29)
[2016-08-28] MEDS: Insulin Detemir 100 Units/ML 3 ML Pen SUBCUT SCH (08:41)
[2016-08-28 11:14] VITALS: BP 93/75
[2016-08-28] MEDS: Ondansetron 4 MG Tab.DIS PO PRN (11:15)
[2016-08-28] MEDS: LORazepam 0.5 MG Tab PO PRN (14:06)
[2016-08-28] MEDS: HYDROmorphone 0.5 MG/0.5 ML Syringe IVPUSH PRN (14:08)
--- NOTE | 2016-08-28 14:21 | PCM.DCSUM1 ---
Discharge Summary - Hospital Course Brief History: this 60-year-old female with insulin-dependent diabetes, chronic obstructive pulmonary disease secondary to rheumatoid arthritis who presented with increasing shortness of breath, cough, back pain and weakness. She was admitted for management of a COPD exacerbation - Discharge Data Discharge Date: 08/28/16 Discharge Disposition: Home, [facility] 06 Condition: Fair - Discharge Diagnosis/Problem(s) (1) Acute exacerbation of chronic obstructive pulmonary disease (COPD) SNOMED Code(s): 612772782 ICD Code: J44.1 - CHRONIC OBSTRUCTIVE PULMONARY DISEASE W (ACUTE) EXACERBATION Status: Acute (2) (HFpEF) heart failure with preserved ejection fraction SNOMED Code(s): 44396388 ICD Code: I50.30 - UNSPECIFIED DIASTOLIC (CONGESTIVE) HEART FAILURE Status : Chronic (3) Diabetes mellitus type 2 SNOMED Code(s): 77305519 ICD Code: E11.9 - TYPE 2 DIABETES MELLITUS WITHOUT COMPLICATIONS Status: Chronic Priority: High (4) Anxiety SNOMED Code(s): 28842283 ICD Code: F41.9 - ANXIETY DISORDER, UNSPECIFIED Status: Chronic Priority : High (5) Rheumatoid arthritis SNOMED Code(s): 06894271 ICD Code: M06.9 - RHEUMATOID ARTHRITIS, UNSPECIFIED Status: Chronic Priority: Medium Qualifiers: Rheumatoid arthritis location: multiple sites Rheumatoid factor presence: unspecified presence Qualified Code(s): M06.9 - Rheumatoid arthritis, unspecified (6) Closed T5 fracture SNOMED Code(s): 240359321 ICD Code: S22.059A - UNSP FRACTURE OF T5-T6 VERTEBRA, INIT FOR CLOS FX Status: Acute Qualifiers: Encounter type: initial encounter Fracture morphology: wedge compression Qualified Code(s): S22.050A - Wedge compression fracture of T5-T6 vertebra, initial encounter for closed fracture - Patient Summary/Data Consults: Consultations 08/27/16 15:30 PT Evaluation and Treatment [CONS] Routine Please Evaluate and Treat. PT Reason for Consult: Weakness This query below is only for informational purposes and is not editable. Hospital Course: Dipti presented to the emergency room with increasing shortness of breath and cough as well as pain that radiated from her back around the right side of her chest with respiration. Workup in the emergency room was fairly reassuring other than some mild hypoxia. Laboratory studies were normal. Chest x-ray did not show infiltrate. She was admitted to the hospital for a COPD exacerbation thought secondary to respiratory illness, not sure if viral or bacterial. Without fevers or white blood cell count elevation we continued her prior to admission antibiotic of clindamycin. Her chronic prednisone dose was switched to IV Solu-Medrol. The morning after admission she is stable from a respiratory standpoint but is complaining of radiating pain from her back around the right side of her chest. An MRI was obtained with concern for compression fracture and did note a mild compression fracture at T5. Since there had not been trauma this was thought secondary to long-standing prednisone use. Over the next few days she had slow but steady improvement in her respiratory status. She did have ongoing pain in her back that radiated to the right side of her chest. Pain was mostly with respiration. Pain has been fairly well-controlled using oral medications. She has needed occasional doses of IV pain medication. Respiratory status has remained very stable with her usual amount of supplemental oxygen. She has not had any fevers. She continues to feel short of breath but does not have significant oxygen desaturations. We have noticed at night that her oxygen saturations decline while she is on the Trilogy ventilation system. Utilizing only the normal nasal cannula she has normal saturations. I did recommend that she quit using the Trilogy for now until this exacerbation passes. It was not entirely clear why she's having difficulty with the machine that had previously provided benefit. The machine was evaluated by [facility] from [facility] and no obvious abnormalities or malfunctions were noted. At this point I believe she is safe for outpatient management. She has declined a physical therapy over the past 2 days. She is on oral antibiotics and oral steroids. I'm planning to taper the steroids over the next few weeks. Antibiotics can be discontinued at this point with plenty of therapy I believe. She does have some ongoing right-sided back and chest wall pain. This pain will likely be present for some time given the compression fracture. I did give her a short prescription of morphine to help with her pain as well as with her breathing. She will need close followup in the clinic to ensure that her condition continues to improve. She was concerned about being discharged today because she still has some ongoing pain. I did discuss that her symptoms do not require ongoing hospitalization and that because she has been transitioned to all oral medications and he is using only her usual amount of supplemental oxygen that she is safe for discharge. I did also remind her that she had not been working with physical therapy which was the main reason that she stayed an additional day in the first place. She will be discharged home and is interested in home health care at this time her this will be set up for her at the time of discharge. - Patient Instructions Diet: Diabetic Diet Activity: As Tolerated Driving: Do Not Drive (if taking pain pills) Showering/Bathing: May Shower Notify Provider of: Fever, Increased Pain, Nausea and/or Vomiting Other/Special Instructions: 1. You were in the hospital for management of an acute exacerbation of her chronic pulmonary disease. We did not find a definite source of infection and indeed this may have been a viral infection. I do recommend a prednisone taper as outlined below. You should continue to use your nebulizer as previously prescribed. You can use the morphine tablets to help with her to hunger and with the residual pain in her chest with deep breathing probably caused by inflammation from the infection. -prednisone taper : + Take 40 mg by mouth on morning. + Starting on Friday morning take 30 mg by mouth daily for 7 days. + Next Friday start taking 20 mg by mouth once daily. + Additional taper instructions can be discussed with Dr. Gonsalez in the internal medicine clinic. 2. I would recommend that you do not use your Trilogy home ventilation system at night because of the low oxygen saturations. You should use your supplemental oxygen at nighttime continue your usual 3 L per minute. 3. I would recommend increasing your long-acting insulin dosing to 30 units in the morning and 30 units in the evening. We have had excellent blood sugar control utilizing and increased insulin dosing regimen. 4. Please do your best to follow a diabetic diet and try to limit your calories to 1800 per day. 5. Please seek medical attention if you have increasing shortness of breath, increasing pain or develop a fever greater than 101. - Discharge Plan Prescriptions/Med Rec: Insulin Detemir [Levemir Flextouch] 30 units SQ BID #300 ml LORazepam [Ativan] 0.5 mg PO BID PRN #30 tablet PRN Reason: Anxiety Morphine 30 mg PO Q6H PRN #60 tab PRN Reason: Air Hunger/Pain Prednisone [IJD: predniSONE] 20 mg PO ASDIRECTED #30 tablet Home Medications: Home Meds Albuterol [Ventolin HFA] 2 puff INH ASDIRECTED PRN 03/01/13 [History] Escitalopram [Lexapro] 30 mg PO BEDTIME 03/01/13 [History] Ipratropium/Albuterol Sulfate [Duoneb 0.5 MG-3 MG/3 ML] 3 ml INH QID 03/01/13 [ History] Metoprolol Succinate [Toprol XL] 25 mg PO BEDTIME 03/01/13 [History] Verapamil HCl [Verelan] 180 mg PO BIDAC 03/01/13 [History] Aspirin 81 mg PO DAILY 08/30/13 [History] Simvastatin [Zocor] 10 mg PO BEDTIME 08/30/13 [History] Magnesium Oxide 400 mg PO BID 09/01/13 [History] Lactobacillus Acidophilus [Probiotic] 1 cap PO BID 04/05/14 [History] Cyclobenzaprine [Flexeril] 10 mg PO TID PRN 09/27/14 [History] Folic Acid 1 mg PO DAILY 09/27/14 [History] metFORMIN [Glucophage] 850 mg PO BID 09/27/14 [History] Gabapentin [Neurontin] 300 mg PO BID 03/28/15 [History] Lisinopril 20 mg PO DAILY 03/28/15 [History] Oxybutynin [Oxybutynin ER] 10 mg PO DAILY 03/28/15 [History] Promethazine [Phenergan] 25 mg PO Q8H PRN 03/28/15 [History] traZODone 50 mg PO BEDTIME 03/28/15 [History] LORazepam [Ativan] 0.5 mg PO ASDIRECTED PRN 04/24/15 [History] Potassium Chloride [Klor-Con M20] 20 meq PO BID #60 tab.er 07/29/15 [Rx] Cyanocobalamin (Vitamin B12) [Vitamin B12] 1,000 mcg IM Q30D 09/26/15 [History] Ergocalciferol (Vitamin D2) [Vitamin D2] 50,000 unit PO WEEKLY 09/26/15 [History ] Ferrous Sulfate 325 mg PO DAILY 09/26/15 [History] Fluticasone/Salmeterol [Advair Diskus 500-50] 1 puff INH BID 12/05/15 [History] azaTHIOprine [Azathioprine] 150 mg PO DAILY 12/05/15 [History] ALPRAZolam [Alprazolam] 0.25 mg PO ASDIRECTED 04/12/16 [History] Isosorbide Mononitrate [Isosorbide Mononitrate ER] 30 mg PO DAILY 04/12/16 [ History] Morphine Sulfate 30 mg PO Q4H PRN 04/12/16 [History] Sucralfate [Carafate] 1 gm PO QIDACANDBED 05/10/16 [History] Bumetanide [Bumex] 2 mg PO BID #60 tablet 05/17/16 [Rx] Insulin Aspart [NovoLOG] 10 unit SUBCUT TIDMEALS 06/05/16 [History] Pantoprazole [Protonix] 40 mg PO DAILY 07/13/16 [History] Clotrimazole [Mycelex] 10 mg PO DAILY 07/29/16 [History] Insulin Detemir [Levemir Flextouch] 30 units SQ BID #300 ml 08/28/16 [Rx] LORazepam [Ativan] 0.5 mg PO BID PRN #30 tablet 08/28/16 [Rx] Morphine 30 mg PO Q6H PRN #60 tab 08/28/16 [Rx] Prednisone [IJD: predniSONE] 20 mg PO ASDIRECTED #30 tablet 08/28/16 [Rx] Patient Handouts: Chronic Obstructive Pulmonary Disease Exacerbation, Spinal Compression Fracture Referrals: Arnulfo Gonsalez MD [Primary Care Provider] - (1 week - followup hospital stay for COPD exacerbation, diabetes and compression fracture) - Discharge Summary/Plan Comment DC Time >30 min.: No (25) - Patient Data Vitals - Most Recent: Last Vital Signs Temp 37.2 C 08/28/16 11:00 Pulse 84 08/28/16 11:00 Resp 20 08/28/16 07:46 BP 93/75 08/28/16 11:00 Pulse Ox 91 L 08/28/16 11:00 Weight - Most Recent: 137 kg I&O - Last 24 hours: Intake & Output 08/27/16 08/28/16 08/28/16 22:59 06:59 14:59 Intake Total 1012 500 360 Balance 1012 500 360 Med Orders - Current: Current Medications Acetaminophen (Tylenol) 650 mg PO Q4H PRN PRN Reason: Pain (Mild 1-3)/fever Last Admin: 08/23/16 01:01 Dose: 650 mg Albuterol (Proventil Neb Soln) 2.5 mg NEB Q4H PRN PRN Reason: Shortness Of Breath/wheezing Last Admin: 08/25/16 15:50 Dose: 2.5 mg Albuterol/Ipratropium (Duoneb 3.0-0.5 Mg/3 Ml) 3 ml INH QIDRT [facility] Last Admin: 08/28/16 12:48 Dose: Not Given Aspirin (Aspirin) 81 mg PO DAILY [facility] Last Admin: 08/28/16 08:29 Dose: 81 mg Azathioprine (Imuran) 150 mg PO DAILY [facility] Last Admin: 08/28/16 08:31 Dose: 150 mg Bacitracin (Bacitracin Oint 1 Gm) 1 dose TOP ASDIRECTED PRN PRN Reason: sore left arm Last Admin: 08/25/16 17:19 Dose: 1 dose Bumetanide (Bumex) 2 mg PO BIDDIURETIC [facility] Last Admin: 08/28/16 14:12 Dose: Not Given Clindamycin HCl (Cleocin) 300 mg PO TID [facility] Last Admin: 08/28/16 14:17 Dose: Not Given Clotrimazole (Mycelex) 10 mg PO 5XDAY [facility] Last Admin: 08/28/16 14:06 Dose: 10 mg Cyclobenzaprine HCl (Flexeril) 10 mg PO TID PRN PRN Reason: Pain Dextrose (Glutose 15) 15 gm PO ONETIME PRN PRN Reason: Hypoglycemia Dextrose/Water (Dextrose 50% In Water) 50 ml IV ONETIME PRN PRN Reason: Hypoglycemia Docusate Sodium (Colace) 100 mg PO BID PRN PRN Reason: Constipation Enoxaparin Sodium (Lovenox) 40 mg SUBCUT Q24H [facility] Last Admin: 08/27/16 17:04 Dose: 40 mg Escitalopram Oxalate 10 mg/ (Escitalopram Oxalate 20 mg) 30 mg PO BEDTIME [facility] Last Admin: 08/27/16 20:03 Dose: 30 mg Gabapentin (Neurontin) 300 mg PO BID [facility] Last Admin: 08/28/16 08:32 Dose: 300 mg Heparin Sodium (Porcine) (Heparin Lock Flush 100 Units/Ml Syringe) 500 units FLUSH ASDIRECTED PRN PRN Reason: Other Last Admin: 08/28/16 14:14 Dose: 500 units Hydromorphone HCl (Dilaudid) 0.5 mg IVPUSH Q4H PRN PRN Reason: Pain Last Admin: 08/28/16 14:08 Dose: 0.5 mg Insulin Aspart (Novolog) 10 unit SUBCUT TIDMEALS [facility] Last Admin: 08/28/16 12:29 Dose: 10 units Insulin Aspart (Novolog) 0 unit SUBCUT ASDIRECTED [facility] PRN Reason: Protocol Last Admin: 08/28/16 12:29 Dose: 3 units Insulin Detemir (Levemir) 40 unit SUBCUT BEDTIME [facility] Last Admin: 08/27/16 21:53 Dose: 40 units Insulin Detemir (Levemir) 40 unit SUBCUT DAILY [facility] Last Admin: 08/28/16 08:41 Dose: 40 units Isosorbide Mononitrate (Imdur) 30 mg PO DAILY [facility] Last Admin: 08/28/16 08:30 Dose: 30 mg Lactobacillus Rhamnosus (Culturelle) 1 cap PO BID [facility] Last Admin: 08/28/16 08:29 Dose: 1 cap Lisinopril (Prinivil) 20 mg PO DAILY [facility] Last Admin: 08/28/16 08:32 Dose: 20 mg Lorazepam (Ativan) 0.5 mg PO Q4H PRN PRN Reason: Anxiety Last Admin: 08/28/16 14:06 Dose: 0.5 mg Magnesium Hydroxide (Milk Of Magnesia) 30 ml PO Q12H PRN PRN Reason: Constipation Last Admin: 08/27/16 10:22 Dose: 30 ml Magnesium Oxide (Magnesium Oxide) 400 mg PO BID [facility] Last Admin: 08/28/16 08:31 Dose: 400 mg Metformin HCl (Glucophage) 850 mg PO BIDMEALS [facility] Last Admin: 08/28/16 08:28 Dose: 850 mg Metoprolol Succinate (Toprol Xl) 25 mg PO BEDTIME [facility] Last Admin: 08/27/16 21:53 Dose: 25 mg Mometasone Furoate/Formoterol Fumar (Dulera 200-5 Mcg) 2 puff IH BIDRT [facility] Last Admin: 08/28/16 07:19 Dose: 2 puff Morphine Sulfate (Morphine) 30 mg PO Q4H PRN PRN Reason: PAIN Last Admin: 08/28/16 11:14 Dose: 30 mg Ondansetron HCl (Zofran) 4 mg IV Q4H PRN PRN Reason: Nausea/Vomiting Last Admin: 08/23/16 16:02 Dose: 4 mg Ondansetron HCl (Zofran Odt) 4 mg PO Q4H PRN PRN Reason: Nausea/Vomiting Last Admin: 08/28/16 11:15 Dose: 4 mg Oxybutynin Chloride (Oxybutynin) 5 mg PO BID [facility] Last Admin: 08/28/16 08:32 Dose: 5 mg Pantoprazole Sodium (Protonix) 40 mg PO DAILY@0730 [facility] Last Admin: 08/28/16 07:43 Dose: 40 mg Polyethylene Glycol (Miralax) 17 gm PO DAILY PRN PRN Reason: Constipation Potassium Chloride (Klor-Con M20) 20 meq PO BIDMEALS [facility] Last Admin: 08/28/16 08:28 Dose: 20 meq Prednisone (Prednisone) 40 mg PO DAILY [facility] Last Admin: 08/28/16 08:32 Dose: 40 mg Simvastatin (Zocor) 10 mg PO BEDTIME [facility] Last Admin: 08/27/16 20:07 Dose: 10 mg Sodium Chloride (Saline Flush) 10 ml FLUSH ASDIRECTED PRN PRN Reason: Keep Vein Open Sucralfate (Carafate) 1 gm PO QIDACANDBED [facility] Last Admin: 08/28/16 11:10 Dose: 1 gm Trazodone HCl (Trazodone) 50 mg PO BEDTIME [facility] Last Admin: 08/27/16 20:05 Dose: 50 mg Verapamil HCl (Calan Sr) 180 mg PO BIDAC [facility] Last Admin: 08/28/16 07:42 Dose: 180 mg Discontinued Medications Magnesium Sulfate 2 gm/ Premix 50 mls @ 25 mls/hr IV Q6H [facility] Stop: 08/24/16 04:29 Magnesium Sulfate 2 gm/ Premix 50 mls @ 25 mls/hr IV Q6H [facility] Stop: 08/24/16 04:29 Last Admin: 08/23/16 21:25 Dose: 25 mls/hr Insulin Aspart (Novolog) 0 unit SUBCUT ASDIRECTED PRN; Protocol PRN Reason: SEE PROTOCOL Insulin Aspart (Novolog) 12 unit SUBCUT ONETIME ONE Stop: 08/22/16 17:31 Last Admin: 08/22/16 17:55 Dose: 12 units Insulin Aspart (Novolog) 12 unit SUBCUT ONETIME ONE Stop: 08/22/16 21:14 Last Admin: 08/22/16 21:24 Dose: 12 units Insulin Aspart (Novolog) 10 unit SUBCUT ONETIME ONE Stop: 08/23/16 08:16 Last Admin: 08/23/16 10:16 Dose: 10 units Insulin Aspart (Novolog) 12 unit SUBCUT ONETIME ONE Stop: 08/23/16 12:01 Last Admin: 08/23/16 13:25 Dose: 12 units Insulin Aspart (Novolog) 14 unit SUBCUT ONETIME ONE Stop: 08/23/16 17:31 Last Admin: 08/23/16 17:50 Dose: 14 units Insulin Aspart (Novolog) 14 unit SUBCUT ONETIME ONE PRN Reason: Protocol Stop: 08/23/16 21:14 Last Admin: 08/23/16 21:29 Dose: 14 units Insulin Aspart (Novolog) 15 unit SUBCUT ONETIME ONE Stop: 08/27/16 22:01 Last Admin: 08/27/16 21:53 Dose: 15 unit Insulin Detemir (Levemir) 30 unit SUBCUT BEDTIME [facility] Last Admin: 08/23/16 21:28 Dose: 30 units Insulin Detemir (Levemir) 20 unit SUBCUT DAILY [facility] Last Admin: 08/24/16 08:16 Dose: 20 units Methylprednisolone Sodium Succinate (Solu-Medrol) 125 mg IVPUSH ONETIME ONE Stop: 08/22/16 11:46 Last Admin: 08/22/16 12:03 Dose: 125 mg Methylprednisolone Sodium Succinate (Solu-Medrol) 40 mg IVPUSH Q6H [facility] Last Admin: 08/25/16 12:02 Dose: 40 mg *Q Meaningful Use (DIS) - VTE *Q VTE Criteria *Q: - Stroke *Q Stroke Criteria *Q: - AMI *Q AMI Criteria *Q:
== END 2016-08-28 15:15 | disposition home health service (06) | DRG 140 ==
LOC: JP.ED 10:38 → JP.MS 13:03
PROVIDERS: ADMIT Hospitalist; ATTEND Internal Medicine
DX: J44.1 Chronic obstructive pulmonary disease with (acute) exacerbation (principal); R09.02 Hypoxemia; I50.30 Unspecified diastolic (congestive) heart failure; I11.0 Hypertensive heart disease with heart failure; Z87.891 Personal history of nicotine dependence; E11.9 Type 2 diabetes mellitus without complications; M06.9 Rheumatoid arthritis, unspecified; M19.90 Unspecified osteoarthritis, unspecified site; M54.9 Dorsalgia, unspecified; G89.29 Other chronic pain; F32.9 Major depressive disorder, single episode, unspecified; Z96.659 Presence of unspecified artificial knee joint; Z88.1 Allergy status to other antibiotic agents; Z79.82 Long term (current) use of aspirin; Z79.4 Long term (current) use of insulin; Z79.52 Long term (current) use of systemic steroids; Z79.84 Long term (current) use of oral hypoglycemic drugs; M48.54XA Collapsed vertebra, not elsewhere classified, thoracic region, initial encounter for fracture
CPT/HCPCS: 36415; 36600; 71010; 71010-26; 72146; 72146-26; 80048; 82803; 82962; 83735; 85025; 85027; 94640; 94640-76; 96374; 97110-GP; 97162-GP; 97530-GP; 99285-25; A9270-GY; J1170; J1642; J1650; J2405; J2920; J2930; J3475; J7500; J7620

== ENCOUNTER 2016-10-12 17:48 | Inpatient (IN) | payer BC, MEDICAID ==
--- NOTE | 2016-10-12 18:48 | EDM.PDOC ---
[id number]: COPD COMPLICATIONS Time Seen by Provider: 10/12/16 18:15 Source of Information: Reports: Patient, Family History Limitations: Reports: No Limitations - History of Present Illness INITIAL COMMENTS - FREE TEXT/NARRATIVE: 60-year-old female with chronic COPD has an exacerbation over the past 2 weeks. No fevers or chills. She has very little activity tolerance. Her recent pulmonology consult felt she was in failure and increased diuretics but it hasn' t helped. She's developing weakness as well. Onset: Gradual Severity: Moderate Worsens with: Reports: Other (Much worse with activity) Associated Symptoms: Reports: Shortness of Breath. Denies: Fever/Chills, Headaches Chest Pain Score (Numeric/FACES): 8 - Related Data Allergies Allergy/AdvReac Type Severity Reaction Status Date / Time cephalexin monohydrate Allergy Unknown flusing Verified 08/16/16 14:20 [From Keflex] levofloxacin [Levofloxacin] Allergy Rash Verified 08/16/16 14:20 amoxicillin [Amoxicillin] AdvReac Vomiting Verified 08/16/16 14:20 amoxicillin trihydrate AdvReac Vomiting Verified 08/16/16 14:20 [From Augmentin] erythromycin base AdvReac Nausea and Verified 08/16/16 14:20 [Erythromycin Base] Vomiting potassium clavulanate AdvReac Vomiting Verified 08/16/16 14:20 [From Augmentin] Home Meds: Home Meds Albuterol [Ventolin HFA] 2 puff INH ASDIRECTED PRN 03/01/13 [History] Escitalopram [Lexapro] 30 mg PO BEDTIME 03/01/13 [History] Ipratropium/Albuterol Sulfate [Duoneb 0.5 MG-3 MG/3 ML] 3 ml INH QID 03/01/13 [ History] Metoprolol Succinate [Toprol XL] 25 mg PO BEDTIME 03/01/13 [History] Verapamil HCl [Verelan] 180 mg PO BIDAC 03/01/13 [History] Aspirin 81 mg PO DAILY 08/30/13 [History] Simvastatin [Zocor] 10 mg PO BEDTIME 08/30/13 [History] Magnesium Oxide 400 mg PO BID 09/01/13 [History] Lactobacillus Acidophilus [Probiotic] 1 cap PO BID 04/05/14 [History] Cyclobenzaprine [Flexeril] 10 mg PO TID PRN 09/27/14 [History] Folic Acid 1 mg PO DAILY 09/27/14 [History] metFORMIN [Glucophage] 850 mg PO BID 09/27/14 [History] Gabapentin [Neurontin] 300 mg PO BID 03/28/15 [History] Lisinopril 20 mg PO DAILY 03/28/15 [History] Oxybutynin [Oxybutynin ER] 10 mg PO DAILY 03/28/15 [History] Promethazine [Phenergan] 25 mg PO Q8H PRN 03/28/15 [History] traZODone 50 mg PO BEDTIME 03/28/15 [History] Potassium Chloride [Klor-Con M20] 20 meq PO BID #60 tab.er 07/29/15 [Rx] Cyanocobalamin (Vitamin B12) [Vitamin B12] 1,000 mcg IM Q30D 09/26/15 [History] Ergocalciferol (Vitamin D2) [Vitamin D2] 50,000 unit PO WEEKLY 09/26/15 [History ] Ferrous Sulfate 325 mg PO DAILY 09/26/15 [History] Fluticasone/Salmeterol [Advair Diskus 500-50] 1 puff INH BID 12/05/15 [History] azaTHIOprine [Azathioprine] 150 mg PO DAILY 12/05/15 [History] ALPRAZolam [Alprazolam] 0.25 mg PO ASDIRECTED 04/12/16 [History] Isosorbide Mononitrate [Isosorbide Mononitrate ER] 30 mg PO DAILY 04/12/16 [ History] Morphine Sulfate 15 mg PO Q4H PRN 04/12/16 [History] Sucralfate [Carafate] 1 gm PO QIDACANDBED 05/10/16 [History] Bumetanide [Bumex] 2 mg PO BID #60 tablet 05/17/16 [Rx] Insulin Aspart [NovoLOG] 10 unit SUBCUT TIDMEALS 06/05/16 [History] Pantoprazole [ProTONIX] 40 mg PO DAILY 07/13/16 [History] Clotrimazole [Mycelex] 10 mg PO DAILY 07/29/16 [History] Insulin Detemir [Levemir Flextouch] 30 units SQ BID #300 ml 08/28/16 [Rx] LORazepam [Ativan] 0.5 mg PO BID PRN #30 tablet 08/28/16 [Rx] Prednisone [IJD: predniSONE] 20 mg PO ASDIRECTED #30 tablet 08/28/16 [Rx] Past Medical History HEENT History: Reports: Impaired Vision Cardiovascular History: Reports: Hypertension, SOB on Exertion, Other (See Below ) Other Cardiovascular History: diastolic congestive heart failure Respiratory History: Reports: Asthma, Bronchitis, Recurrent, COPD, Pneumonia, Recurrent, SOB, Other (See Below) Other Respiratory History: Home O2 and nebs Gastrointestinal History: Reports: Cholelithiasis, GERD, Other (See Below) Other Gastrointestinal History: history of bezoars Genitourinary History: Reports: Other (See Below) Other Genitourinary History: mass by bladder taken out non cancer [employer] History: Reports: PID, Musculoskeletal History: Reports: Back Pain, Chronic, Osteoarthritis, RA Neurological History: Reports: Migraines Psychiatric History: Reports: Depression Endocrine/Metabolic History: Reports: Diabetes, Type II, Obesity/BMI 30+ Hematologic History: Reports: B12 Deficiency Immunologic History: Reports: Other (See Below) Other Immunologic History: on medication that affects immunity Oncologic (Cancer) History: Reports: None Dermatologic History: Reports: None - Infectious Disease History Infectious Disease History: Reports: Chicken Pox, Measles, Mumps - Past Surgical History HEENT Surgical History: Reports: Cataract Surgery, Tonsillectomy, Other (See Below) Female Surgical History: Reports: Hysterectomy, Tubal Ligation, Other (See Below) Musculoskeletal Surgical History: Reports: Knee Replacement, Other (See Below) Social & Family History - Family History HEENT: Reports: Cataract Cardiac: Reports: CAD Respiratory: Reports: Asthma : Reports: Other (See Below) Other Family History: mom kidney CA Musculoskeletal: Reports: Arthritis, RA Neurological: Reports: CVA, Seizure Endocrine/Metabolic: Reports: Diabetes, type II - Tobacco Use Smoking Status *Q: Never Smoker Years of Tobacco use: 15 Packs/Tins Daily: 1 Used Tobacco, but Quit: Yes Month Tobacco Last Used: 1981 Second Hand Smoke Exposure: No - Caffeine Use Caffeine Use: Reports: Soda Other Caffeine Use: 3 bottles a day - Alcohol Use Days Per Week of Alcohol Use: 0 - Recreational Drug Use Recreational Drug Use: No - Living Situation & Occupation Living situation: Reports: , with Spouse ED ROS GENERAL - Review of Systems Review Of Systems: See Below Constitutional: Reports: Malaise, Weakness. Denies: Fever, Chills Respiratory: Reports: Shortness of Breath, Cough Cardiovascular: Denies: Chest Pain GI/Abdominal: Denies: Abdominal Pain Skin: Reports: Other (Erythema of the face, chronic) Neurological: Reports: Weakness. Denies: Headache ED EXAM, GENERAL - Physical Exam Exam: See Below Exam Limited By: No Limitations General Appearance: Alert, Mild Distress Eye Exam: Bilateral Eye: EOMI Respiratory/Chest: Respiratory Distress (Mild respiratory distress with any activity), Other (A few extreme basilar rales but otherwise clear lungs) Cardiovascular: Regular Rate, Rhythm GI/Abdominal: Other (Morbid obesity) Neurological: Alert, Oriented Course - Vital Signs Last Recorded V/S: Last Vital Signs Temp 98.1 F 10/12/16 17:50 Pulse 87 10/12/16 19:28 Resp 18 10/12/16 19:28 BP 190/90 H 10/12/16 21:50 Pulse Ox 94 L 10/12/16 19:28 - Orders/Labs/Meds Orders: Active Orders 24 hr Category Date Time Status Insert Dougherty Catheter [Insert Urinary Catheter] [OM.PC] Care 10/12/16 21:00 Ordered Q24H Urinary Catheter Assessment [RC] ASDIRECTED Care 10/12/16 20:49 Active Chest 2V [CR] Routine Exams 10/12/16 18:11 Taken Medication Orders Acetaminophen (Tylenol) 650 mg PO Q4H PRN PRN Reason: Pain (Mild 1-3)/fever Albuterol (Proventil Neb Soln) 2.5 mg NEB Q4H PRN PRN Reason: Shortness Of Breath/wheezing Albuterol/Ipratropium (Duoneb 3.0-0.5 Mg/3 Ml) 3 ml NEB QID PRN PRN Reason: Shortness Of Breath/wheezing Albuterol/Ipratropium (Duoneb 3.0-0.5 Mg/3 Ml) 3 ml INH QIDRT [facility] Alprazolam (Xanax) 0.25 mg PO Q4H PRN PRN Reason: Anxiety Aspirin (Aspirin) 81 mg PO DAILY [facility] Azathioprine (Imuran) 150 mg PO DAILY [facility] Bisacodyl (Dulcolax) 5 mg PO DAILY PRN PRN Reason: Constipation Bumetanide (Bumex) 2 mg IVPUSH Q12H [facility] Cyclobenzaprine HCl (Flexeril) 10 mg PO TID PRN PRN Reason: Pain Docusate Sodium (Colace) 100 mg PO BID PRN PRN Reason: Constipation Escitalopram Oxalate (Lexapro) 30 mg PO BEDTIME [facility] Ferrous Sulfate (Ferrous Sulfate) 325 mg PO DAILY [facility] Folic Acid (Folic Acid) 1 mg PO DAILY [facility] Gabapentin (Neurontin) 300 mg PO BID [facility] Insulin Aspart (Novolog) 10 unit SUBCUT TIDMEALS [facility] Insulin Detemir (Levemir) 30 unit SUBCUT BID [facility] Isosorbide Mononitrate (Imdur) 30 mg PO DAILY [facility] Lisinopril (Prinivil) 20 mg PO DAILY [facility] Lorazepam (Ativan) 1 mg IV Q6H PRN PRN Reason: Nausea/Vomiting Lorazepam (Ativan) 0.5 mg PO BID PRN PRN Reason: Anxiety Magnesium Oxide (Magnesium Oxide) 400 mg PO BID [facility] Metformin HCl (Glucophage) 850 mg PO BID [facility] Methylprednisolone Sodium Succinate (Solu-Medrol) 125 mg IVPUSH Q8H [facility] Metoprolol Succinate (Toprol Xl) 25 mg PO BEDTIME [facility] Mometasone Furoate/Formoterol Fumar (Dulera 200-5 Mcg) 2 puff IH BID [facility] Ondansetron HCl (Zofran Odt) 4 mg PO Q6H PRN PRN Reason: Nausea able to take PO Ondansetron HCl (Zofran) 4 mg IV Q4H PRN PRN Reason: Nausea/Vomiting Oxycodone HCl (Oxycodone) 5 mg PO Q4H PRN PRN Reason: Pain (moderate 4-6) Pantoprazole Sodium (Protonix) 40 mg PO ACBREAKFAST [facility] Potassium Chloride (Klor-Con M20) 20 meq PO BID [facility] Promethazine HCl (Phenergan) 25 mg PO Q8H PRN PRN Reason: Nausea Simvastatin (Zocor) 10 mg PO BEDTIME [facility] Sucralfate (Carafate) 1 gm PO QIDACANDBED [facility] Trazodone HCl (Trazodone) 50 mg PO BEDTIME [facility] Verapamil HCl (Calan Sr) 180 mg PO BIDAC [facility] Zolpidem Tartrate (Ambien) 5 mg PO BEDTIME PRN PRN Reason: Sleep Labs: Laboratory Tests 10/12/16 10/12/16 10/12/16 Range/Units 18:51 18:51 20:01 WBC 11.1 H (4.5-11.0) K/uL RBC 4.28 (3.30-5.50) M/uL Hgb 11.1 L (12.0-15.0) g/dL Hct 36.9 (36.0-48.0) % MCV 86 (80-98) fL MCH 26 L (27-31) pg MCHC 30 L (32-36) % Plt Count 291 (150-400) K/uL Neut % (Auto) 87 H (36-66) % Lymph % (Auto) 8 L (24-44) % [place] % (Auto) 4 (2-6) % Eos % (Auto) 0 L (2-4) % Baso % (Auto) 0 (0-1) % Puncture Site ABG pH (7.350-7.450) ABG pCO2 (35.0-42.0) mmHg ABG pO2 (75.0-100.0) mmHg ABG HCO3 (22.0-26.0) mmol/L ABG Total CO2 (21.0-25.0) mmol/L ABG O2 Saturation (95.0-98.0) % ABG O2 Content (15.0-23.0) %vol ABG Base Excess mm/L ABG Hemoglobin (12.0-16.0) g/dL ABG Oxyhemoglobin % ABG Carboxyhemoglobin (0.0-1.6) % ABG Methemoglobin % You Test O2 Delivery Device Oxygen Flow Rate L Sodium 143 (140-148) mmol/L Potassium 4.0 (3.6-5.2) mmol/L Chloride 103 (100-108) mmol/L Carbon Dioxide 32 (21-32) mmol/L Anion Gap 8.4 (5.0-14.0) mmol/L BUN 15 D (7-18) mg/dL Creatinine 0.9 (0.6-1.0) mg/dL Est Cr Clr Drug Dosing TNP Estimated GFR (MDRD) > 60 (>60) Glucose 267 H (74-106) mg/dL Lactic Acid (0.4-2.0) mmol/L Calcium 8.4 L (8.5-10.1) mg/dL Amylase 29 (25-115) U/L Lipase 139 (73-393) U/L Urine Color Urine Appearance Urine pH (4.5-8.0) Ur Specific [place] (1.008-1.030) Urine Protein (NEGATIVE) mg/dL Urine Glucose (UA) (NEGATIVE) mg/dL Urine Ketones (NEGATIVE) mg/dL Urine Occult Blood (NEGATIVE) Urine Nitrite (NEGATIVE) Urine Bilirubin (NEGATIVE) Urine Urobilinogen (NORMAL) mg/dL Ur Leukocyte Esterase (NEGATIVE) Urine RBC (0-5) Urine WBC (0-5) Ur Epithelial Cells Amorphous Sediment Urine Bacteria Urine Mucus 10/12/16 10/12/16 10/12/16 Range/Units 20:01 20:02 21:24 WBC (4.5-11.0) K/uL RBC (3.30-5.50) M/uL Hgb (12.0-15.0) g/dL Hct (36.0-48.0) % MCV (80-98) fL MCH (27-31) pg MCHC (32-36) % Plt Count (150-400) K/uL Neut % (Auto) (36-66) % Lymph % (Auto) (24-44) % [place] % (Auto) (2-6) % Eos % (Auto) (2-4) % Baso % (Auto) (0-1) % Puncture Site Rt.radial ABG pH 7.366 (7.350-7.450) ABG pCO2 49.9 H (35.0-42.0) mmHg ABG pO2 77.3 (75.0-100.0) mmHg ABG HCO3 27.9 H (22.0-26.0) mmol/L ABG Total CO2 25.8 H (21.0-25.0) mmol/L ABG O2 Saturation 94.2 L (95.0-98.0) % ABG O2 Content 14.3 L (15.0-23.0) %vol ABG Base Excess 2.4 mm/L ABG Hemoglobin 10.9 L (12.0-16.0) g/dL ABG Oxyhemoglobin 92.8 % ABG Carboxyhemoglobin 0.7 (0.0-1.6) % ABG Methemoglobin 0.8 % You Test Passed O2 Delivery Device Nasal cannula Oxygen Flow Rate 3 L Sodium (140-148) mmol/L Potassium (3.6-5.2) mmol/L Chloride (100-108) mmol/L Carbon Dioxide (21-32) mmol/L Anion Gap (5.0-14.0) mmol/L BUN (7-18) mg/dL Creatinine (0.6-1.0) mg/dL Est Cr Clr Drug Dosing Estimated GFR (MDRD) (>60) Glucose (74-106) mg/dL Lactic Acid 3.9 H (0.4-2.0) mmol/L Calcium (8.5-10.1) mg/dL Amylase (25-115) U/L Lipase (73-393) U/L Urine Color Yellow Urine Appearance Slightly cloudy Urine pH 5.0 (4.5-8.0) Ur Specific [place] 1.025 (1.008-1.030) Urine Protein Negative (NEGATIVE) mg/dL Urine Glucose (UA) 1000 H (NEGATIVE) mg/dL Urine Ketones Negative (NEGATIVE) mg/dL Urine Occult Blood Trace (NEGATIVE) Urine Nitrite Negative (NEGATIVE) Urine Bilirubin Negative (NEGATIVE) Urine Urobilinogen Normal (NORMAL) mg/dL Ur Leukocyte Esterase Negative (NEGATIVE) Urine RBC 0-5 (0-5) Urine WBC 5-10 H (0-5) Ur Epithelial Cells Few Amorphous Sediment Not seen Urine Bacteria Many Urine Mucus Few Meds: Medications Generic Name Dose Route Start Last Admin Trade Name Freq PRN Reason Stop Dose Admin Acetaminophen 650 mg 10/12/16 22:50 Tylenol PO Q4H PRN Pain (Mild 1-3)/fever Albuterol 2.5 mg 10/12/16 22:50 Proventil Neb Soln NEB Q4H PRN Shortness Of Breath/wheezing Albuterol/Ipratropium 3 ml 10/12/16 22:50 Duoneb 3.0-0.5 Mg/3 Ml NEB QID PRN Shortness Of Breath/wheezing Albuterol/Ipratropium 3 ml 10/12/16 22:50 Duoneb 3.0-0.5 Mg/3 Ml INH QIDRT [facility] Alprazolam 0.25 mg 10/12/16 22:50 Xanax PO Q4H PRN Anxiety Aspirin 81 mg 10/13/16 09:00 Aspirin PO DAILY [facility] Azathioprine 150 mg 10/13/16 09:00 Imuran PO DAILY [facility] Bisacodyl 5 mg 10/12/16 22:50 Dulcolax PO DAILY PRN Constipation Bumetanide 2 mg 10/13/16 09:00 Bumex IVPUSH Q12H [facility] Cyclobenzaprine HCl 10 mg 10/12/16 22:50 Flexeril PO TID PRN Pain Docusate Sodium 100 mg 10/12/16 22:50 Colace PO BID PRN Constipation Escitalopram Oxalate 30 mg 10/13/16 21:00 Lexapro PO BEDTIME [facility] Ferrous Sulfate 325 mg 10/13/16 09:00 Ferrous Sulfate PO DAILY [facility] Folic Acid 1 mg 10/13/16 09:00 Folic Acid PO DAILY [facility] Gabapentin 300 mg 10/13/16 09:00 Neurontin PO BID [facility] Insulin Aspart 10 unit 10/13/16 08:00 Novolog SUBCUT TIDMEALS [facility] Insulin Detemir 30 unit 10/12/16 22:50 Levemir SUBCUT BID [facility] Isosorbide Mononitrate 30 mg 10/13/16 09:00 Imdur PO DAILY [facility] Lisinopril 20 mg 10/13/16 09:00 Prinivil PO DAILY [facility] Lorazepam 1 mg 10/12/16 22:50 Ativan IV Q6H PRN Nausea/Vomiting Lorazepam 0.5 mg 10/12/16 22:50 Ativan PO BID PRN Anxiety Magnesium Oxide 400 mg 10/13/16 09:00 Magnesium Oxide PO BID [facility] Metformin HCl 850 mg 10/13/16 09:00 Glucophage PO BID [facility] Methylprednisolone Sodium Succinate 125 mg 10/13/16 03:00 Solu-Medrol IVPUSH Q8H [facility] Metoprolol Succinate 25 mg 10/13/16 21:00 Toprol Xl PO BEDTIME [facility] Mometasone Furoate/Formoterol Fumar 2 puff 10/12/16 23:15 Dulera 200-5 Mcg IH BID [facility] Ondansetron HCl 4 mg 10/12/16 22:50 Zofran Odt PO Q6H PRN Nausea able to take PO Ondansetron HCl 4 mg 10/12/16 22:50 Zofran IV Q4H PRN Nausea/Vomiting Oxycodone HCl 5 mg 10/12/16 22:50 Oxycodone PO Q4H PRN Pain (moderate 4-6) Pantoprazole Sodium 40 mg 10/13/16 07:30 Protonix PO ACBREAKFAST [facility] Potassium Chloride 20 meq 10/13/16 09:00 Klor-Con M20 PO BID [facility] Promethazine HCl 25 mg 10/12/16 22:50 Phenergan PO Q8H PRN Nausea Simvastatin 10 mg 10/13/16 21:00 Zocor PO BEDTIME [facility] Sucralfate 1 gm 10/13/16 07:00 Carafate PO QIDACANDBED [facility] Trazodone HCl 50 mg 10/13/16 21:00 Trazodone PO BEDTIME [facility] Verapamil HCl 180 mg 10/13/16 07:30 Calan Sr PO BIDAC [facility] Zolpidem Tartrate 5 mg 10/12/16 22:50 Ambien PO BEDTIME PRN Sleep Discontinued Medications Generic Name Dose Route Start Last Admin Trade Name Freq PRN Reason Stop Dose Admin Albuterol/Ipratropium 3 ml 10/12/16 19:59 10/12/16 20:07 Duoneb 3.0-0.5 Mg/3 Ml NEB 10/12/16 20:00 3 ml ONETIME ONE Administration Bumetanide 4 mg 10/12/16 20:34 10/12/16 21:50 Bumex IVPUSH 10/12/16 20:35 4 mg ONETIME ONE Administration Lorazepam 1 mg 10/12/16 19:55 10/12/16 20:10 Ativan IVPUSH 10/12/16 19:56 1 mg ONETIME ONE Administration Methylprednisolone Sodium Succinate 125 mg 10/12/16 19:58 10/12/16 20:08 Solu-Medrol IVPUSH 10/12/16 19:59 125 mg ONETIME ONE Administration Morphine Sulfate 2 mg 10/12/16 19:57 10/12/16 20:10 Morphine IVPUSH 10/12/16 19:58 2 mg ONETIME ONE Administration - Re-Assessments/Exams Free Text/Narrative Re-Assessment/Exam: 10/12/16 18:46 A two-view chest x-ray was obtained that showed some mild pulmonary congestion but no effusions. CBC and BMP were obtained. She was able to maintain her O2 saturations above 92% at rest with nasal cannula oxygen. She desaturated quickly with any activity. Hospitalist service was asked to admit the patient. Departure - Departure Time of Disposition: 22:45 Disposition: Admitted As Inpatient 64 Condition: poor Clinical Impression: COPD (chronic obstructive pulmonary disease) Qualifiers: COPD type: COPD with acute exacerbation Qualified Code(s): J44.1 - Chronic obstructive pulmonary disease with (acute) exacerbation CHF (congestive heart failure) Qualifiers: Congestive heart failure type: combined - Discharge Information - My Orders Last 24 Hours: My Active Orders 10/12/16 18:11 Chest 2V [CR] Routine - Assessment/Plan Last 24 Hours: My Active Orders 10/12/16 18:11 Chest 2V [CR] Routine
[2016-10-12] MEDS ORDERED: LORazepam 2 MG/ML MDV IVPUSH ONE (19:55)
[2016-10-12] MEDS ORDERED: Morphine 2 MG/ML Syringe IVPUSH ONE (19:57)
[2016-10-12] MEDS ORDERED: methylPREDNISolone Sodium Succinate 125 MG/2 ML SDV IVPUSH ONE (19:58)
[2016-10-12] MEDS ORDERED: Albuterol/Ipratropium 3.0-0.5 MG/3 ML Neb Soln NEB ONE (19:59)
[2016-10-12] MEDS ORDERED: Bumetanide 1 MG/4 ML MDV IVPUSH ONE (20:34)
[2016-10-12] MEDS ORDERED: Acetaminophen 325 MG Tab PO PRN (22:50)
[2016-10-12] MEDS ORDERED: Albuterol 0.083% 2.5 MG/3 ML Neb Soln NEB PRN (22:50)
[2016-10-12] MEDS ORDERED: ALPRAZolam 0.25 MG Tab PO PRN (22:50)
[2016-10-12] MEDS ORDERED: LORazepam 0.5 MG Tab PO PRN (22:50)
[2016-10-12] MEDS ORDERED: Bisacodyl 5 MG Tab PO PRN (22:50)
[2016-10-12] MEDS ORDERED: oxyCODONE 5 MG Tab PO PRN (22:50)
[2016-10-12] MEDS ORDERED: Promethazine 25 MG Tab PO PRN (22:50)
[2016-10-12] MEDS ORDERED: Docusate Sodium 100 MG Cap PO PRN (22:50)
[2016-10-12] MEDS ORDERED: Albuterol/Ipratropium 3.0-0.5 MG/3 ML Neb Soln NEB PRN (22:50)
[2016-10-12] MEDS ORDERED: Ondansetron 4 MG/2 ML SDV IV PRN (22:50)
[2016-10-12] MEDS ORDERED: LORazepam 2 MG/ML MDV IV PRN (22:50)
[2016-10-12] MEDS ORDERED: Ondansetron 4 MG Tab.DIS PO PRN (22:50)
[2016-10-12] MEDS ORDERED: Cyclobenzaprine 10 MG Tab PO PRN (22:50)
[2016-10-12] MEDS ORDERED: Formoterol/Mometasone 200-5 MCG 8.8 GM Inhaler IH SCH (23:15)
--- NOTE | 2016-10-12 23:32 | PCM.HP ---
H&P History of Present Illness - General Date of Service: 10/12/16 Admit Problem/Dx: Admission Diagnosis/Problem Admission Diagnosis/Problem Congestive heart failure Source of Information: Patient, Family () History Limitations: Reports: No Limitations - History of Present Illness Initial Comments - Free Text/Narative: INITIAL COMMENTS - FREE TEXT/NARRATIVE: 60-year-old female with chronic COPD has an exacerbation over the past 2 weeks. No fevers or chills. She has very little activity tolerance. Her recent pulmonology consult felt she was in failure and increased diuretics but it hasn' t helped. She's developing weakness as well. Onset: Gradual Severity: Moderate Worsens with: Reports: Other (Much worse with activity) Associated Symptoms: Reports: Shortness of Breath. Denies: Fever/Chills, Headaches Chest Pain Score (Numeric/FACES): 8 10/12/16 18:46 A two-view chest x-ray was obtained that showed some mild pulmonary congestion but no effusions. CBC and BMP were obtained. She was able to maintain her O2 saturations above 92% at rest with nasal cannula oxygen. She desaturated quickly with any activity. Hospitalist service was asked to admit the patient. Onset of Symptoms: Reports: Gradual Duration of Symptoms: Reports: Day(s): (five), Getting Worse (breathing getting worse each day) Location: Reports: Generalized Quality: Reports: Same as Previous Episode Severity: Moderate Improves with: Reports: None Worsens with: Reports: Movement Context: Reports: Other (chronic illness of lungs.) Associated Symptoms: Reports: Cough, Nausea/Vomiting, Shortness of Breath Chest Pain Score (Numeric/FACES): 8 - Related Data Allergies/Adverse Reactions: Allergies Allergy/AdvReac Type Severity Reaction Status Date / Time cephalexin monohydrate Allergy Unknown flusing Verified 08/16/16 14:20 [From Keflex] levofloxacin [Levofloxacin] Allergy Rash Verified 08/16/16 14:20 amoxicillin [Amoxicillin] AdvReac Vomiting Verified 08/16/16 14:20 amoxicillin trihydrate AdvReac Vomiting Verified 08/16/16 14:20 [From Augmentin] erythromycin base AdvReac Nausea and Verified 08/16/16 14:20 [Erythromycin Base] Vomiting potassium clavulanate AdvReac Vomiting Verified 08/16/16 14:20 [From Augmentin] Home Medications: Home Meds Albuterol [Ventolin HFA] 2 puff INH ASDIRECTED PRN 03/01/13 [History] Escitalopram [Lexapro] 30 mg PO BEDTIME 03/01/13 [History] Ipratropium/Albuterol Sulfate [Duoneb 0.5 MG-3 MG/3 ML] 3 ml INH QID 03/01/13 [ History] Metoprolol Succinate [Toprol XL] 25 mg PO BEDTIME 03/01/13 [History] Verapamil HCl [Verelan] 180 mg PO BIDAC 03/01/13 [History] Aspirin 81 mg PO DAILY 08/30/13 [History] Simvastatin [Zocor] 10 mg PO BEDTIME 08/30/13 [History] Magnesium Oxide 400 mg PO BID 09/01/13 [History] Lactobacillus Acidophilus [Probiotic] 1 cap PO BID 04/05/14 [History] Cyclobenzaprine [Flexeril] 10 mg PO TID PRN 09/27/14 [History] Folic Acid 1 mg PO DAILY 09/27/14 [History] metFORMIN [Glucophage] 850 mg PO BID 09/27/14 [History] Gabapentin [Neurontin] 300 mg PO BID 03/28/15 [History] Lisinopril 20 mg PO DAILY 03/28/15 [History] Oxybutynin [Oxybutynin ER] 10 mg PO DAILY 03/28/15 [History] Promethazine [Phenergan] 25 mg PO Q8H PRN 03/28/15 [History] traZODone 50 mg PO BEDTIME 03/28/15 [History] Potassium Chloride [Klor-Con M20] 20 meq PO BID #60 tab.er 07/29/15 [Rx] Cyanocobalamin (Vitamin B12) [Vitamin B12] 1,000 mcg IM Q30D 09/26/15 [History] Ergocalciferol (Vitamin D2) [Vitamin D2] 50,000 unit PO WEEKLY 09/26/15 [History ] Ferrous Sulfate 325 mg PO DAILY 09/26/15 [History] Fluticasone/Salmeterol [Advair Diskus 500-50] 1 puff INH BID 12/05/15 [History] azaTHIOprine [Azathioprine] 150 mg PO DAILY 12/05/15 [History] ALPRAZolam [Alprazolam] 0.25 mg PO ASDIRECTED 04/12/16 [History] Isosorbide Mononitrate [Isosorbide Mononitrate ER] 30 mg PO DAILY 04/12/16 [ History] Morphine Sulfate 15 mg PO Q4H PRN 04/12/16 [History] Sucralfate [Carafate] 1 gm PO QIDACANDBED 05/10/16 [History] Bumetanide [Bumex] 2 mg PO BID #60 tablet 05/17/16 [Rx] Insulin Aspart [NovoLOG] 10 unit SUBCUT TIDMEALS 06/05/16 [History] Pantoprazole [ProTONIX] 40 mg PO DAILY 07/13/16 [History] Clotrimazole [Mycelex] 10 mg PO DAILY 07/29/16 [History] Insulin Detemir [Levemir Flextouch] 30 units SQ BID #300 ml 08/28/16 [Rx] LORazepam [Ativan] 0.5 mg PO BID PRN #30 tablet 08/28/16 [Rx] Prednisone [IJD: predniSONE] 20 mg PO ASDIRECTED #30 tablet 08/28/16 [Rx] Past Medical History HEENT History: Reports: Impaired Vision Cardiovascular History: Reports: Hypertension, SOB on Exertion, Other (See Below ) Other Cardiovascular History: diastolic congestive heart failure Respiratory History: Reports: Asthma, Bronchitis, Recurrent, COPD, Pneumonia, Recurrent, SOB, Other (See Below) Other Respiratory History: Home O2 and nebs Gastrointestinal History: Reports: Cholelithiasis, GERD, Other (See Below) Other Gastrointestinal History: history of bezoars Genitourinary History: Reports: Other (See Below) Other Genitourinary History: mass by bladder taken out non cancer 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, Musculoskeletal History: Reports: Back Pain, Chronic, Osteoarthritis, RA Neurological History: Reports: Migraines Psychiatric History: Reports: Depression Endocrine/Metabolic History: Reports: Diabetes, Type II, Obesity/BMI 30+ Hematologic History: Reports: B12 Deficiency Immunologic History: Reports: Other (See Below) Other Immunologic History: on medication that affects immunity Oncologic (Cancer) History: Reports: None Dermatologic History: Reports: None - Infectious Disease History Infectious Disease History: Reports: Chicken Pox, Measles, Mumps - Past Surgical History HEENT Surgical History: Reports: Cataract Surgery, Tonsillectomy, Other (See Below) Female Surgical History: Reports: Hysterectomy, Tubal Ligation, Other (See Below) Musculoskeletal Surgical History: Reports: Knee Replacement, Other (See Below) Social & Family History - Family History HEENT: Reports: Cataract Cardiac: Reports: CAD Respiratory: Reports: Asthma : Reports: Other (See Below) Other Family History: mom kidney CA Musculoskeletal: Reports: Arthritis, RA Neurological: Reports: CVA, Seizure Endocrine/Metabolic: Reports: Diabetes, type II - Tobacco Use Smoking Status *Q: Never Smoker Years of Tobacco use: 15 Packs/Tins Daily: 1 Used Tobacco, but Quit: Yes Month Tobacco Last Used: 1981 Second Hand Smoke Exposure: No - Caffeine Use Caffeine Use: Reports: Soda Other Caffeine Use: 3 bottles a day - Alcohol Use Days Per Week of Alcohol Use: 0 - Recreational Drug Use Recreational Drug Use: No - Living Situation & Occupation Living situation: Reports: , with Spouse H&P Review of Systems - Review of Systems: Review Of Systems: See Below General: Reports: Malaise, Weakness, Fatigue, Weight Gain (8 pounds) Pulmonary: Reports: Shortness of Breath, Wheezing, Pleuritic Chest Pain, Cough, Sputum Cardiovascular: Reports: Dyspnea on Exertion, PND Gastrointestinal: Reports: No Symptoms Genitourinary: Reports: Dysuria Musculoskeletal: Reports: Muscle Pain Skin: Reports: Dryness Psychiatric: Reports: No Symptoms Neurological: Reports: No Symptoms Hematologic/Lymphatic: Reports: No Symptoms Immunologic: Reports: No Symptoms Exam - Exam Exam: See Below - Vital Signs Vital Signs: Last Vital Signs Temp 36.7 C 10/12/16 17:50 Pulse 87 10/12/16 19:28 Resp 18 10/12/16 19:28 BP 190/90 H 10/12/16 21:50 Pulse Ox 94 L 10/12/16 19:28 Weight: 137.484 kg - Exam Quality Assessment: Supplemental Oxygen General: Alert, Oriented, 4 HEENT: PERRLA, Hearing Intact, Mucosa Moist & [place], Nares Patent, Normal Nasal Septum, Posterior Pharynx Clear, Conjunctiva Clear, EOMI, EACs Clear, TMs Clear Neck: Supple, Trachea Midline, 2 Lungs: Decreased Breath Sounds, Crackles, Rales, Rhonchi, Wheezing Cardiovascular: Regular Rate, Regular Rhythm Abdomen: Normal Bowel Sounds, Soft (Female) Exam: Deferred Rectal (Female) Exam: Deferred Back Exam: Normal Inspection, Full Range of Motion Extremities: Normal Inspection, Normal Pulses Peripheral Pulses: 2+: Dorsalis Pedis (L), Dorsalis Pedis (R) Skin: Rash (dry flakey rash noted to lower legs.) Neurological: Reflexes Equal Bilateral, Strength Equal Bilateral, Normal Speech , Normal Tone, Sensation Intact Neuro Extensive - Mental Status: Alert, Oriented x3, Normal Mood/Affect, Normal Cognition Neuro Extensive - Motor, Sensory, Reflexes: CN II-XII Intact, Normal Gait, Normal Reflexes Psychiatric: Alert, Normal Affect, Normal Mood - Patient Data Result Diagrams: 10/13/16 05:41 10/13/16 05:41 *Q Meaningful Use (ADM) - VTE *Q VTE Criteria *Q: - Stroke *Q Stroke Criteria *Q: - AMI *Q AMI Criteria *Q: - Problem List (1) Chronic pain SNOMED Code(s): 80567488 ICD Code: G89.29 - OTHER CHRONIC PAIN Status: Acute Priority: High Current Visit: Yes Qualifiers: Chronic pain type: other chronic pain Qualified Code(s): G89.29 - Other chronic pain (2) CHF (congestive heart failure) SNOMED Code(s): 44159624 ICD Code: I50.9 - HEART FAILURE, UNSPECIFIED Status: Chronic Priority: High Current Visit: Yes Qualifiers: Congestive heart failure type: combined Congestive heart failure chronicity : acute on chronic Qualified Code(s): I50.43 - Acute on chronic combined systolic (congestive) and diastolic (congestive) heart failure (3) COPD (chronic obstructive pulmonary disease) SNOMED Code(s): 59284875 ICD Code: J44.9 - CHRONIC OBSTRUCTIVE PULMONARY DISEASE, UNSPECIFIED Status : Chronic Priority: High Current Visit: Yes Qualifiers: COPD type: COPD with acute exacerbation Qualified Code(s): J44.1 - Chronic obstructive pulmonary disease with (acute) exacerbation (4) Acute exacerbation of chronic obstructive pulmonary disease (COPD) SNOMED Code(s): 446283608 ICD Code: J44.1 - CHRONIC OBSTRUCTIVE PULMONARY DISEASE W (ACUTE) EXACERBATION Status: Acute Priority: High Current Visit: Yes (5) Diabetes mellitus SNOMED Code(s): 76295758 ICD Code: E11.9 - TYPE 2 DIABETES MELLITUS WITHOUT COMPLICATIONS Status: Acute Priority: Medium Current Visit: Yes Qualifiers: Diabetes mellitus type: type 2 Diabetes mellitus complication status: without complication Diabetes mellitus long-term insulin use: with ferry terminal agent use Qualified Code(s): E11.9 - Type 2 diabetes mellitus without complications ; Z79.4 - penitentiary (current) use of insulin Problem List Initiated/Reviewed/Updated: Yes Orders Last 24hrs: Active Orders 24 hr Category Date Time Status Patient Status [ADT] Routine ADT 10/12/16 22:50 Active Cardiac Education [RC] Click To Edit Care 10/12/16 22:50 Active Intake and Output [RC] QSHIFT Care 10/12/16 22:50 Active Notify Provider Vital Signs [RC] ASDIRECTED Care 10/12/16 22:50 Active Oxygen Therapy [RC] PRN Care 10/12/16 22:50 Active RT Aerosol Therapy [RC] ASDIRECTED Care 10/12/16 22:50 Active Up ad Susan [RC] ASDIRECTED Care 10/12/16 22:50 Active VTE/DVT Education [RC] Per Unit Routine Care 10/12/16 22:50 Active Vital Signs [RC] Q4H Care 10/12/16 22:50 Active OT Evaluation and Treatment [CONS] Routine Cons 10/12/16 22:50 Active PT Evaluation and Treatment [CONS] Routine Cons 10/12/16 22:50 Active Consistent Carbohydrate Diet [DIET] Diet 10/12/16 Breakfast Active BASIC METABOLIC PANEL,BMP [CHEM] AM Lab 10/13/16 05:11 Ordered CBC WITH AUTO DIFF [HEME] AM Lab 10/13/16 05:11 Ordered GLUCOSE POC LAB TO COLLECT [POC] QIDACANDBED Lab 10/13/16 07:30 Ordered ALPRAZolam [Xanax] Med 10/12/16 22:50 Active 0.25 mg PO Q4H PRN Acetaminophen [Tylenol] Med 10/12/16 22:50 Active 650 mg PO Q4H PRN Albuterol [Proventil Neb Soln] Med 10/12/16 22:50 Active 2.5 mg NEB Q4H PRN Albuterol/Ipratropium [DuoNeb 3.0-0.5 MG/3 ML] Med 10/12/16 22:50 Active 3 ml INH QIDRT Albuterol/Ipratropium [DuoNeb 3.0-0.5 MG/3 ML] Med 10/12/16 22:50 Active 3 ml NEB QID PRN Aspirin Med 10/13/16 09:00 Active 81 mg PO DAILY Bisacodyl [Dulcolax] Med 10/12/16 22:50 Active 5 mg PO DAILY PRN Bumetanide [Bumex] Med 10/13/16 09:00 Active 2 mg IVPUSH Q12H Cyclobenzaprine [Flexeril] Med 10/12/16 22:50 Active 10 mg PO TID PRN Docusate Sodium [Colace] Med 10/12/16 22:50 Active 100 mg PO BID PRN Escitalopram [Lexapro] Med 10/13/16 21:00 Active 30 mg PO BEDTIME Ferrous Sulfate Med 10/13/16 09:00 Active 325 mg PO DAILY Folic Acid Med 10/13/16 09:00 Active 1 mg PO DAILY Gabapentin [Neurontin] Med 10/13/16 09:00 Active 300 mg PO BID Insulin Aspart [NovoLOG] Med 10/13/16 08:00 Active 10 unit SUBCUT TIDMEALS Insulin Detemir [Levemir] Med 10/12/16 22:50 Active 30 unit SUBCUT BID Isosorbide Mononitrate [Imdur] Med 10/13/16 09:00 Active 30 mg PO DAILY LORazepam [Ativan] Med 10/12/16 22:50 Active 0.5 mg PO BID PRN LORazepam [Ativan] Med 10/12/16 22:50 Active 1 mg IV Q6H PRN Lisinopril [Prinivil] Med 10/13/16 09:00 Active 20 mg PO DAILY Magnesium Oxide Med 10/13/16 09:00 Active 400 mg PO BID Metoprolol Succinate [Toprol XL] Med 10/13/16 21:00 Active 25 mg PO BEDTIME Mometasone/Formoterol [Dulera 200-5 MCG] Med 10/12/16 23:15 Active 2 puff IH BID Ondansetron [Zofran ODT] Med 10/12/16 22:50 Active 4 mg PO Q6H PRN Ondansetron [Zofran] Med 10/12/16 22:50 Active 4 mg IV Q4H PRN Pantoprazole [ProTONIX] Med 10/13/16 07:30 Active 40 mg PO ACBREAKFAST Potassium Chloride [Klor-Con M20] Med 10/13/16 09:00 Active 20 meq PO BID Promethazine [Phenergan] Med 10/12/16 22:50 Active 25 mg PO Q8H PRN Simvastatin [Zocor] Med 10/13/16 21:00 Active 10 mg PO BEDTIME Sucralfate [Carafate] Med 10/13/16 07:00 Active 1 gm PO QIDACANDBED Verapamil [Calan SR] Med 10/13/16 07:30 Active 180 mg PO BIDAC Zolpidem [Ambien] Med 10/12/16 22:50 Active 5 mg PO BEDTIME PRN azaTHIOprine [Imuran] Med 10/13/16 09:00 Active 150 mg PO DAILY metFORMIN [Glucophage] Med 10/13/16 09:00 Active 850 mg PO BID methylPREDNISolone Sod Succ [Solu-MEDROL] Med 10/13/16 03:00 Active 125 mg IVPUSH Q8H oxyCODONE Med 10/12/16 22:50 Active 5 mg PO Q4H PRN traZODone Med 10/13/16 21:00 Active 50 mg PO BEDTIME Sequential Compression Device [OM.PC] Per Unit Routine Oth 10/12/16 22:50 Ordered Resuscitation Status Routine Resus Stat 10/12/16 21:44 Ordered Medication Orders Acetaminophen (Tylenol) 650 mg PO Q4H PRN PRN Reason: Pain (Mild 1-3)/fever Albuterol (Proventil Neb Soln) 2.5 mg NEB Q4H PRN PRN Reason: Shortness Of Breath/wheezing Albuterol/Ipratropium (Duoneb 3.0-0.5 Mg/3 Ml) 3 ml NEB QID PRN PRN Reason: Shortness Of Breath/wheezing Albuterol/Ipratropium (Duoneb 3.0-0.5 Mg/3 Ml) 3 ml INH QIDRT [facility] Alprazolam (Xanax) 0.25 mg PO Q4H PRN PRN Reason: Anxiety Aspirin (Aspirin) 81 mg PO DAILY [facility] Azathioprine (Imuran) 150 mg PO DAILY [facility] Bisacodyl (Dulcolax) 5 mg PO DAILY PRN PRN Reason: Constipation Bumetanide (Bumex) 2 mg IVPUSH Q12H [facility] Cyclobenzaprine HCl (Flexeril) 10 mg PO TID PRN PRN Reason: Pain Docusate Sodium (Colace) 100 mg PO BID PRN PRN Reason: Constipation Escitalopram Oxalate (Lexapro) 30 mg PO BEDTIME [facility] Ferrous Sulfate (Ferrous Sulfate) 325 mg PO DAILY [facility] Folic Acid (Folic Acid) 1 mg PO DAILY [facility] Gabapentin (Neurontin) 300 mg PO BID [facility] Insulin Aspart (Novolog) 10 unit SUBCUT TIDMEALS [facility] Insulin Detemir (Levemir) 30 unit SUBCUT BID [facility] Isosorbide Mononitrate (Imdur) 30 mg PO DAILY [facility] Lisinopril (Prinivil) 20 mg PO DAILY [facility] Lorazepam (Ativan) 1 mg IV Q6H PRN PRN Reason: Nausea/Vomiting Lorazepam (Ativan) 0.5 mg PO BID PRN PRN Reason: Anxiety Magnesium Oxide (Magnesium Oxide) 400 mg PO BID [facility] Metformin HCl (Glucophage) 850 mg PO BID [facility] Methylprednisolone Sodium Succinate (Solu-Medrol) 125 mg IVPUSH Q8H [facility] Metoprolol Succinate (Toprol Xl) 25 mg PO BEDTIME [facility] Mometasone Furoate/Formoterol Fumar (Dulera 200-5 Mcg) 2 puff IH BID [facility] Ondansetron HCl (Zofran Odt) 4 mg PO Q6H PRN PRN Reason: Nausea able to take PO Ondansetron HCl (Zofran) 4 mg IV Q4H PRN PRN Reason: Nausea/Vomiting Oxycodone HCl (Oxycodone) 5 mg PO Q4H PRN PRN Reason: Pain (moderate 4-6) Pantoprazole Sodium (Protonix) 40 mg PO ACBREAKFAST [facility] Potassium Chloride (Klor-Con M20) 20 meq PO BID [facility] Promethazine HCl (Phenergan) 25 mg PO Q8H PRN PRN Reason: Nausea Simvastatin (Zocor) 10 mg PO BEDTIME [facility] Sucralfate (Carafate) 1 gm PO QIDACANDBED [facility] Trazodone HCl (Trazodone) 50 mg PO BEDTIME [facility] Verapamil HCl (Calan Sr) 180 mg PO BIDAC [facility] Zolpidem Tartrate (Ambien) 5 mg PO BEDTIME PRN PRN Reason: Sleep Assessment/Plan Comment:: ASSESSMENT / PLAN - INITIAL COMMENTS - FREE TEXT/NARRATIVE: 60-year-old female with chronic COPD has an exacerbation over the past 2 weeks. No fevers or chills. She has very little activity tolerance. Her recent pulmonology consult felt she was in failure and increased diuretics but it hasn' t helped. She's developing weakness as well. Onset: Gradual Severity: Moderate Worsens with: Reports: Other (Much worse with activity) Associated Symptoms: Reports: Shortness of Breath. Denies: Fever/Chills, Headaches Chest Pain Score (Numeric/FACES): 8 10/12/16 18:46 A two-view chest x-ray was obtained that showed some mild pulmonary congestion but no effusions. CBC and BMP were obtained. She was able to maintain her O2 saturations above 92% at rest with nasal cannula oxygen. She desaturated quickly with any activity. Hospitalist service was asked to admit the patient. Plan ACUTE EXACERBATION OF COPD -Admit to [address] [place] [address] for further monitoring -IV solumedrol 125mg every 8 hours -Nebulizer treatments -Oxygen per nasal cannula -IV saline lock -Advise to notify nurses of any chest pain or other symptoms -And a.m. labs: CBC, BMP CHF -IV Bumex 4mg given in ER, order for IV 2mg bid -medications ordered DIABTETS TYPE 2 -Levemir 30 units subcut bid -Novolog 10 units with meals -Sliding scale coverage; high dose -Metformin 850mg bid CHRONIC PAIN -medication order Maintenance issues -Orders home meds: ordered -Nutrition: diabetic diet -Dougherty catheter placed for strict I and 0 -DVT: scd -PPI; Protonix 40mg daily CODE STATUS: Full Admission status: Admit to [address] [place] [address] Admission justification. This patient will be admitted for inpatient services and is medically appropriate meeting medical necessity for inpatient admission as outlined in my documentation. I reasonably expect the patient will require inpatient services that span. Time over 2 midnights. I reasonably expect this patient to be discharged or transferred within 96 hours after admission to the critical access hospital. Disposition; home with Primary care provider:Dr. Gonsalez
[2016-10-12] MEDS ORDERED: Simvastatin 20 MG Tab PO ONE (23:45)
[2016-10-12] MEDS ORDERED: Escitalopram 20 MG Tab PO ONE (23:45)
[2016-10-12] MEDS ORDERED: Gabapentin 300 MG Cap PO ONE (23:45)
[2016-10-12] MEDS ORDERED: Metoprolol Succinate 25 MG Tab.ER PO ONE (23:45)
[2016-10-13] MEDS ORDERED: Escitalopram 10 MG Tab ONE (00:44)
[2016-10-13] MEDS ORDERED: Morphine 15 MG Tab PO PRN (00:49)
[2016-10-13] MEDS: Albuterol/Ipratropium 3.0-0.5 MG/3 ML Neb Soln INH SCH ×5 (01:06→21:32)
[2016-10-13] MEDS: Insulin Detemir 100 Units/ML 3 ML Pen SUBCUT SCH ×3 (01:06→21:32)
[2016-10-13] MEDS: Zolpidem 5 MG Tab PO PRN ×2 (01:08→22:28)
[2016-10-13] MEDS: Insulin Aspart 100 Units/ML 3 ML Pen SUBCUT PRN ×4 (01:31→17:17)
[2016-10-13] MEDS ORDERED: methylPREDNISolone Sodium Succinate 125 MG/2 ML SDV IVPUSH SCH ×3 (03:00→12:00)
[2016-10-13] MEDS: Verapamil 180 MG Tab.ER PO SCH ×2 (08:00→17:12)
[2016-10-13] MEDS: Sucralfate 1 GM Tab PO SCH ×4 (08:00→19:12)
[2016-10-13] MEDS: Pantoprazole 40 MG Tab.CR PO SCH (08:01)
[2016-10-13] MEDS: Formoterol/Mometasone 200-5 MCG 8.8 GM Inhaler IH SCH ×3 (08:02→21:31)
[2016-10-13] MEDS: Potassium Chloride 20 MEQ Tab.ER PO SCH ×2 (08:04→17:14)
[2016-10-13] MEDS: Aspirin 81 MG Tab.Chew PO SCH (08:05)
[2016-10-13] MEDS: Ferrous Sulfate 325 MG Tab PO SCH (08:05)
[2016-10-13] MEDS: Folic Acid 1 MG Tab PO SCH (08:06)
[2016-10-13] MEDS: Isosorbide Mononitrate 30 MG Tab.ER PO SCH (08:12)
[2016-10-13] MEDS: Magnesium Oxide 400 MG Tab PO SCH ×2 (08:15→21:33)
[2016-10-13] MEDS: Lisinopril 20 MG Tab PO SCH (08:16)
[2016-10-13] MEDS: Insulin Aspart 100 Units/ML 3 ML Pen SUBCUT SCH ×3 (08:23→17:18)
[2016-10-13] MEDS: Gabapentin 300 MG Cap PO SCH ×2 (08:30→21:34)
[2016-10-13] MEDS ORDERED: Bumetanide 2.5 MG/10 ML MDV IVPUSH SCH (09:00)
[2016-10-13] MEDS ORDERED: Potassium Chloride 20 MEQ Tab.ER PO SCH (09:00)
[2016-10-13] MEDS ORDERED: LORazepam 0.5 MG Tab PO PRN (11:25)
--- NOTE | 2016-10-13 11:26 | PCM.PN ---
- General Info Date of Service: 10/13/16 Functional Status: Reports: pain controlled, tolerating diet - Review of Systems General: Reports: Weakness. Denies: Fever Pulmonary: Reports: shortness of breath Cardiovascular: Reports: Edema Systems Review Comment:: No acute events overnight. Was feeling a little better after admission but had a choking spell this morning while taking pills. Still feels short of breath and tired. Lower extremity edema has improved. She had an excellent diuresis last night. She has not been having any fevers. Urine sample was suggestive of infection last night. Blood sugars moderately elevated. Mild cough. - Patient Data Vitals - most recent: Last Vital Signs Temp 36.9 C 10/13/16 10:27 Pulse 78 10/13/16 11:10 Resp 16 10/13/16 10:27 BP 160/71 H 10/13/16 10:27 Pulse Ox 91 L 10/13/16 11:10 Weight - most recent: 137.484 kg I&O - last 24 hours: Intake & Output 10/12/16 10/13/16 10/13/16 22:59 06:59 14:59 Intake Total 120 360 Output Total 6000 1600 Balance 120 -6000 -1240 Lab Results last 24 hrs: Laboratory Results - last 24 hr 10/13/16 10/13/16 Range/Units 05:41 05:41 WBC 11.8 H (4.5-11.0) K/uL RBC 4.61 (3.30-5.50) M/uL Hgb 11.9 L (12.0-15.0) g/dL Hct 39.3 (36.0-48.0) % MCV 85 (80-98) fL MCH 26 L (27-31) pg MCHC 30 L (32-36) % Plt Count 301 (150-400) K/uL Neut % (Auto) 93 H (36-66) % Lymph % (Auto) 5 L (24-44) % [place] % (Auto) 2 (2-6) % Eos % (Auto) 0 L (2-4) % Baso % (Auto) 0 (0-1) % Sodium 143 (140-148) mmol/L Potassium 3.9 (3.6-5.2) mmol/L Chloride 101 (100-108) mmol/L Carbon Dioxide 34 H (21-32) mmol/L Anion Gap 11.9 (5.0-14.0) mmol/L BUN 15 (7-18) mg/dL Creatinine 0.9 (0.6-1.0) mg/dL Est Cr Clr Drug Dosing 61.00 mL/min Estimated GFR (MDRD) > 60 (>60) Glucose 287 H (74-106) mg/dL Calcium 9.0 (8.5-10.1) mg/dL Med Orders - Current: Current Medications Acetaminophen (Tylenol) 650 mg PO Q4H PRN PRN Reason: Pain (Mild 1-3)/fever Albuterol (Proventil Neb Soln) 2.5 mg NEB Q4H PRN PRN Reason: Shortness Of Breath/wheezing Albuterol/Ipratropium (Duoneb 3.0-0.5 Mg/3 Ml) 3 ml NEB QID PRN PRN Reason: Shortness Of Breath/wheezing Last Admin: 10/13/16 01:02 Dose: 3 ml Albuterol/Ipratropium (Duoneb 3.0-0.5 Mg/3 Ml) 3 ml INH QIDRT [facility] Last Admin: 10/13/16 11:09 Dose: 3 ml Alprazolam (Xanax) 0.25 mg PO Q4H PRN PRN Reason: Anxiety Aspirin (Aspirin) 81 mg PO DAILY [facility] Last Admin: 10/13/16 08:05 Dose: 81 mg Azathioprine (Imuran) 150 mg PO DAILY [facility] Last Admin: 10/13/16 08:13 Dose: 150 mg Bisacodyl (Dulcolax) 5 mg PO DAILY PRN PRN Reason: Constipation Cyclobenzaprine HCl (Flexeril) 10 mg PO TID PRN PRN Reason: Pain Docusate Sodium (Colace) 100 mg PO BID PRN PRN Reason: Constipation Escitalopram Oxalate 10 mg/ (Escitalopram Oxalate 20 mg) 30 mg PO BEDTIME [facility] Ferrous Sulfate (Ferrous Sulfate) 325 mg PO DAILY [facility] Last Admin: 10/13/16 08:05 Dose: 325 mg Folic Acid (Folic Acid) 1 mg PO DAILY [facility] Last Admin: 10/13/16 08:06 Dose: 1 mg Gabapentin (Neurontin) 300 mg PO BID [facility] Last Admin: 10/13/16 08:30 Dose: 300 mg Insulin Aspart (Novolog) 10 unit SUBCUT TIDMEALS [facility] Last Admin: 10/13/16 08:23 Dose: 10 unit Insulin Aspart (Novolog) 0 unit SUBCUT ASDIRECTED PRN; Protocol PRN Reason: Blood Glucose Last Admin: 10/13/16 08:22 Dose: 9 units Insulin Detemir (Levemir) 30 unit SUBCUT BID [facility] Last Admin: 10/13/16 08:22 Dose: 30 units Isosorbide Mononitrate (Imdur) 30 mg PO DAILY [facility] Last Admin: 10/13/16 08:12 Dose: 30 mg Lisinopril (Prinivil) 20 mg PO DAILY [facility] Last Admin: 10/13/16 08:16 Dose: 20 mg Magnesium Oxide (Magnesium Oxide) 400 mg PO BID [facility] Last Admin: 10/13/16 08:15 Dose: 400 mg Metformin HCl (Glucophage) 850 mg PO BIDMEALS [facility] Last Admin: 10/13/16 08:03 Dose: 850 mg Metoprolol Succinate (Toprol Xl) 25 mg PO BEDTIME [facility] Mometasone Furoate/Formoterol Fumar (Dulera 200-5 Mcg) 2 puff IH BIDRT [facility] Last Admin: 10/13/16 08:40 Dose: 2 puff Ondansetron HCl (Zofran Odt) 4 mg PO Q6H PRN PRN Reason: Nausea able to take PO Ondansetron HCl (Zofran) 4 mg IV Q4H PRN PRN Reason: Nausea/Vomiting Oxycodone HCl (Oxycodone) 5 mg PO Q4H PRN PRN Reason: Pain (moderate 4-6) Pantoprazole Sodium (Protonix) 40 mg PO ACBREAKFAST [facility] Last Admin: 10/13/16 08:01 Dose: 40 mg Potassium Chloride (Klor-Con M20) 20 meq PO BIDMEALS [facility] Last Admin: 10/13/16 08:04 Dose: 20 meq Promethazine HCl (Phenergan) 25 mg PO Q8H PRN PRN Reason: Nausea Simvastatin (Zocor) 10 mg PO BEDTIME [facility] Sucralfate (Carafate) 1 gm PO QIDACANDBED [facility] Last Admin: 10/13/16 11:24 Dose: Not Given Trazodone HCl (Trazodone) 50 mg PO BEDTIME [facility] Trazodone HCl (Trazodone) 50 mg PO ONETIME ONE Stop: 10/13/16 23:46 Verapamil HCl (Calan Sr) 180 mg PO BIDAC [facility] Last Admin: 10/13/16 08:00 Dose: 180 mg Zolpidem Tartrate (Ambien) 5 mg PO BEDTIME PRN PRN Reason: Sleep Last Admin: 10/13/16 01:08 Dose: 5 mg Discontinued Medications Albuterol/Ipratropium (Duoneb 3.0-0.5 Mg/3 Ml) 3 ml NEB ONETIME ONE Stop: 10/12/16 20:00 Last Admin: 10/12/16 20:07 Dose: 3 ml Bumetanide (Bumex) 4 mg IVPUSH ONETIME ONE Stop: 10/12/16 20:35 Last Admin: 10/12/16 21:50 Dose: 4 mg Bumetanide (Bumex) 2 mg IVPUSH Q12H [facility] Last Admin: 10/13/16 08:20 Dose: 2 mg Escitalopram Oxalate (Lexapro) 30 mg PO ONETIME ONE Stop: 10/12/16 23:46 Last Admin: 10/13/16 01:31 Dose: 30 mg Escitalopram Oxalate (Lexapro) Confirm Administered Dose 30 mg .ROUTE .STK-MED ONE Stop: 10/13/16 00:45 Last Admin: 10/13/16 01:30 Dose: Not Given Gabapentin (Neurontin) 300 mg PO ONETIME ONE Stop: 10/12/16 23:46 Last Admin: 10/13/16 01:25 Dose: 300 mg Heparin Sodium (Porcine) (Heparin Lock Flush 100 Units/Ml Syringe) Confirm Administered Dose 500 units .ROUTE .STK-MED ONE Stop: 10/13/16 05:12 Last Admin: 10/13/16 05:20 Dose: 500 units Lorazepam (Ativan) 1 mg IVPUSH ONETIME ONE Stop: 10/12/16 19:56 Last Admin: 10/12/16 20:10 Dose: 1 mg Lorazepam (Ativan) 1 mg IV Q6H PRN PRN Reason: Nausea/Vomiting Lorazepam (Ativan) 0.5 mg PO BID PRN PRN Reason: Anxiety Last Admin: 10/13/16 10:07 Dose: 0.5 mg Metformin HCl (Glucophage) 850 mg PO ONETIME ONE Stop: 10/12/16 23:46 Last Admin: 10/13/16 01:28 Dose: 850 mg Methylprednisolone Sodium Succinate (Solu-Medrol) 125 mg IVPUSH ONETIME ONE Stop: 10/12/16 19:59 Last Admin: 10/12/16 20:08 Dose: 125 mg Methylprednisolone Sodium Succinate (Solu-Medrol) 125 mg IVPUSH Q8H [facility] Last Admin: 10/13/16 03:33 Dose: 125 mg Methylprednisolone Sodium Succinate (Solu-Medrol) 125 mg IVPUSH Q8H [facility] Metoprolol Succinate (Toprol Xl) 25 mg PO ONETIME ONE Stop: 10/12/16 23:46 Last Admin: 10/13/16 01:15 Dose: 25 mg Mometasone Furoate/Formoterol Fumar (Dulera 200-5 Mcg) 2 puff IH BID [facility] Last Admin: 10/13/16 01:05 Dose: 2 puff Morphine Sulfate (Morphine) 2 mg IVPUSH ONETIME ONE Stop: 10/12/16 19:58 Last Admin: 10/12/16 20:10 Dose: 2 mg Morphine Sulfate (Morphine) 15 mg PO Q4H PRN PRN Reason: Pain Last Admin: 10/13/16 01:27 Dose: 15 mg Simvastatin (Zocor) 10 mg PO ONETIME ONE Stop: 10/12/16 23:46 Last Admin: 10/13/16 01:20 Dose: 10 mg - Exam Quality Assessment: supplemental oxygen, urine catheter General: alert, oriented, cooperative, no acute distress Neck: supple Lungs: Clear to auscultation, Normal respiratory effort, Rales (rare both bases) Cardiovascular: Regular Rate, Regular Rhythm Abdomen: soft, no distension Extremities: no edema, no cyanosis Skin: warm, dry Psy/Mental Status: alert, normal affect - Problem List Review Problem List Initiated/Reviewed/Updated: Yes - My Orders Last 24 Hours: My Active Orders 10/13/16 11:22 CULTURE URINE [RM] Routine 10/13/16 11:25 LORazepam [Ativan] 0.5 mg PO Q4H PRN Morphine 15 - 30 mg PO Q4H PRN 10/13/16 11:30 Enoxaparin [Lovenox] 40 mg SUBCUT DAILY cefTRIAXone [Rocephin] 2 gm Sodium Chloride 0.9% [Normal Saline] 50 ml IV Q24H 10/13/16 12:00 methylPREDNISolone Sod Succ [Solu-MEDROL] 40 mg IVPUSH Q8H 10/13/16 14:00 Bumetanide [Bumex] 2 mg IVPUSH BIDDIURETIC 10/14/16 05:00 BASIC METABOLIC PANEL,BMP [CHEM] Timed CBC W/O DIFF,HEMOGRAM [HEME] Timed (1) - Plan Plan:: ASSESSMENT / PLAN - INITIAL COMMENTS - FREE TEXT/NARRATIVE: 60-year-old female with chronic COPD has an exacerbation over the past 2 weeks. No fevers or chills. She has very little activity tolerance. Her recent pulmonology consult felt she was in failure and increased diuretics but it hasn' t helped. She's developing weakness as well. Onset: Gradual Severity: Moderate Worsens with: Reports: Other (Much worse with activity) Associated Symptoms: Reports: Shortness of Breath. Denies: Fever/Chills, Headaches Chest Pain Score (Numeric/FACES): 8 10/12/16 18:46 A two-view chest x-ray was obtained that showed some mild pulmonary congestion but no effusions. CBC and BMP were obtained. She was able to maintain her O2 saturations above 92% at rest with nasal cannula oxygen. She desaturated quickly with any activity. Hospitalist service was asked to admit the patient. Plan HFpEF - chronic diastolic type heart failure with preserved ejection fraction. Recent decompensation with more than an 8 pound weight gain. Patient reports oral diuretics were not adequate at home. Excellent response to IV medications overnight. She does appear to have a urinary tract infection which could be the trigger for decompensation of her heart failure. -Bumetanide 2 mg twice daily today and in the morning and then reassess -Supplemental oxygen -Continue home medications Acute cystitis - urinalysis suggestive of infection and the patient does have urinary symptoms that would fit with infection. -Urine culture -Empiric antibiotics (she has a known allergy to cephalexin but has tolerated third-generation cephalosporins in the past) COPD - presumably secondary to rheumatoid arthritis and I will be in effect on the lung. She feels short of breath but this could be related to the heart failure. She has been started on IV steroids. I think we should be able to taper these and transition to oral prednisone fairly quickly. She is chronically on 20 mg a day. -Decrease Solu-Medrol to 40 mg every 8 hours -Transition to prednisone as soon as able -Continue scheduled and as needed nebulizers DIABTETS TYPE 2 -Levemir 30 units subcut bid -Novolog 10 units with meals -Sliding scale coverage; high dose -Hold Metformin 850mg bid with lactic acidosis at the time of admission CHRONIC PAIN - stable -medication order Maintenance issues -Nutrition: diabetic diet -Dougherty catheter placed for strict I and 0 -DVT: scd -GI; Protonix 40mg daily Disposition; home with Saran Bolivar M.D.
[2016-10-13] MEDS ORDERED: cefTRIAXone 2 GM in Sodium Chloride 0.9% 50 ML IV SCH (11:30)
[2016-10-13] MEDS: Enoxaparin 40 MG/0.4 ML Syringe SUBCUT SCH (12:21)
[2016-10-13] MEDS: methylPREDNISolone Sodium Succinate 40 MG/1 ML SDV IVPUSH SCH ×2 (12:21→19:12)
[2016-10-13] MEDS: Morphine 15 MG Tab PO PRN (13:49)
[2016-10-13] MEDS: Bumetanide 2.5 MG/10 ML MDV IVPUSH SCH (13:51)
[2016-10-13] MEDS ORDERED: Escitalopram 20 MG Tab PO SCH (21:00)
[2016-10-13] MEDS ORDERED: Insulin Aspart 100 Units/ML 3 ML Pen SUBCUT ONE (21:25)
[2016-10-13] MEDS: ESCITALOPRAM PO SCH ×2 (21:33)
[2016-10-13] MEDS: Metoprolol Succinate 25 MG Tab.ER PO SCH (21:35)
[2016-10-13] MEDS: traZODone 50 MG Tab PO SCH (21:37)
[2016-10-13] MEDS: Simvastatin 20 MG Tab PO SCH (21:37)
[2016-10-13] MEDS ORDERED: traZODone 50 MG Tab PO ONE (23:45)
[2016-10-14] MEDS: methylPREDNISolone Sodium Succinate 40 MG/1 ML SDV IVPUSH SCH (04:07)
[2016-10-14] MEDS: Albuterol/Ipratropium 3.0-0.5 MG/3 ML Neb Soln INH SCH ×4 (07:17→20:36)
[2016-10-14] MEDS: Formoterol/Mometasone 200-5 MCG 8.8 GM Inhaler IH SCH ×2 (07:27→20:27)
--- NOTE | 2016-10-14 09:17 | CR ---
Chest 2V HISTORY: dyspnea COMPARISON: 08/22/2016, 06/27/2016 FINDINGS: Lungs appear clear and normally aerated. Borderline cardiomegaly is stable. Left-sided central venou s Port-A-Cath is stable. The tip overlies the superior vena cava. Superior pulmonary vasculature is borderline prominent similar to prior exams. No pleural fluid can be seen. Bony structures and soft tissues are unremarkable. IMPRESSION: Borderline pulmonary congestive changes similar to prior exams. No other acute abnormality or signif icant interval change is identified.
[2016-10-14] MEDS: Magnesium Oxide 400 MG Tab PO SCH ×2 (09:31→20:28)
[2016-10-14] MEDS: Gabapentin 300 MG Cap PO SCH ×2 (09:33→20:28)
[2016-10-14] MEDS: predniSONE 20 MG Tab PO SCH (09:33)
[2016-10-14] MEDS: Isosorbide Mononitrate 30 MG Tab.ER PO SCH (09:34)
[2016-10-14] MEDS: Verapamil 180 MG Tab.ER PO SCH ×2 (09:36→17:14)
[2016-10-14] MEDS: Sucralfate 1 GM Tab PO SCH ×4 (09:36→19:46)
[2016-10-14] MEDS: Bumetanide 2.5 MG/10 ML MDV IVPUSH SCH ×2 (09:38→13:34)
[2016-10-14] MEDS: Pantoprazole 40 MG Tab.CR PO SCH (09:38)
[2016-10-14] MEDS: Potassium Chloride 20 MEQ Tab.ER PO SCH ×2 (09:39→17:15)
[2016-10-14] MEDS: Enoxaparin 40 MG/0.4 ML Syringe SUBCUT SCH (09:40)
[2016-10-14] MEDS: Ferrous Sulfate 325 MG Tab PO SCH (09:40)
[2016-10-14] MEDS: Aspirin 81 MG Tab.Chew PO SCH (09:40)
[2016-10-14] MEDS: Folic Acid 1 MG Tab PO SCH (09:40)
[2016-10-14] MEDS: Cefdinir 300 MG Cap PO SCH ×2 (09:41→20:28)
[2016-10-14] MEDS: Lisinopril 20 MG Tab PO SCH (09:41)
[2016-10-14] MEDS: Insulin Aspart 100 Units/ML 3 ML Pen SUBCUT PRN ×4 (09:43→21:13)
[2016-10-14] MEDS: Insulin Aspart 100 Units/ML 3 ML Pen SUBCUT SCH ×3 (09:48→17:17)
[2016-10-14] MEDS: Insulin Detemir 100 Units/ML 3 ML Pen SUBCUT SCH ×2 (09:48→21:14)
--- NOTE | 2016-10-14 11:51 | PCM.PN ---
- General Info Date of Service: 10/14/16 Functional Status: Reports: pain controlled, tolerating diet - Review of Systems General: Denies: Fever, Chills Pulmonary: Reports: shortness of breath. Denies: cough, sputum, hemoptysis, wheezing Cardiovascular: Reports: Dyspnea on Exertion. Denies: Chest Pain, Palpitations , Orthopnea, PND Gastrointestinal: Reports: No symptoms Systems Review Comment:: This patient has had an excellent diuresis since admission, now approaching 9 L. Shortness of breath has improved significantly, vital signs have been stable and she has remained afebrile. - Patient Data Vitals - most recent: Last Vital Signs Temp 98 F 10/14/16 10:51 Pulse 85 10/14/16 10:51 Resp 19 10/14/16 10:51 BP 169/72 H 10/14/16 10:51 Pulse Ox 92 L 10/14/16 10:51 Weight - most recent: 290 lb 14.399 oz I&O - last 24 hours: Intake & Output 10/13/16 10/14/16 10/14/16 22:59 06:59 14:59 Intake Total 600 400 Output Total 1100 1700 Balance -500 -1300 Lab Results last 24 hrs: Laboratory Results - last 24 hr 10/14/16 10/14/16 Range/Units 06:00 06:00 WBC 13.8 H (4.5-11.0) K/uL RBC 4.28 (3.30-5.50) M/uL Hgb 10.8 L (12.0-15.0) g/dL Hct 37.3 (36.0-48.0) % MCV 87 (80-98) fL MCH 25 L (27-31) pg MCHC 29 L (32-36) % Plt Count 309 (150-400) K/uL Sodium 143 (140-148) mmol/L Potassium 4.2 (3.6-5.2) mmol/L Chloride 102 (100-108) mmol/L Carbon Dioxide 38 H (21-32) mmol/L Anion Gap 7.2 (5.0-14.0) mmol/L BUN 26 H D (7-18) mg/dL Creatinine 0.8 (0.6-1.0) mg/dL Est Cr Clr Drug Dosing 68.63 mL/min Estimated GFR (MDRD) > 60 (>60) Glucose 311 H (74-106) mg/dL Calcium 8.5 (8.5-10.1) mg/dL Med Orders - Current: Current Medications Acetaminophen (Tylenol) 650 mg PO Q4H PRN PRN Reason: Pain (Mild 1-3)/fever Albuterol (Proventil Neb Soln) 2.5 mg NEB Q4H PRN PRN Reason: Shortness Of Breath/wheezing Albuterol/Ipratropium (Duoneb 3.0-0.5 Mg/3 Ml) 3 ml NEB QID PRN PRN Reason: Shortness Of Breath/wheezing Last Admin: 10/13/16 01:02 Dose: 3 ml Albuterol/Ipratropium (Duoneb 3.0-0.5 Mg/3 Ml) 3 ml INH QIDRT [facility] Last Admin: 10/14/16 10:34 Dose: 3 ml Alprazolam (Xanax) 0.25 mg PO Q4H PRN PRN Reason: Anxiety Aspirin (Aspirin) 81 mg PO DAILY [facility] Last Admin: 10/14/16 09:40 Dose: 81 mg Azathioprine (Imuran) 150 mg PO DAILY [facility] Last Admin: 10/13/16 08:13 Dose: 150 mg Bisacodyl (Dulcolax) 5 mg PO DAILY PRN PRN Reason: Constipation Bumetanide (Bumex) 2 mg IVPUSH BIDDIURETIC [facility] Stop: 10/14/16 23:59 Last Admin: 10/14/16 09:38 Dose: 2 mg Cefdinir (Omnicef) 300 mg PO BID [facility] Last Admin: 10/14/16 09:41 Dose: 300 mg Cyclobenzaprine HCl (Flexeril) 10 mg PO TID PRN PRN Reason: Pain Docusate Sodium (Colace) 100 mg PO BID PRN PRN Reason: Constipation Enoxaparin Sodium (Lovenox) 40 mg SUBCUT DAILY [facility] Last Admin: 10/14/16 09:40 Dose: 40 mg Escitalopram Oxalate 10 mg/ (Escitalopram Oxalate 20 mg) 30 mg PO BEDTIME [facility] Last Admin: 10/13/16 21:33 Dose: 30 mg Ferrous Sulfate (Ferrous Sulfate) 325 mg PO DAILY [facility] Last Admin: 10/14/16 09:40 Dose: 325 mg Folic Acid (Folic Acid) 1 mg PO DAILY [facility] Last Admin: 10/14/16 09:40 Dose: 1 mg Gabapentin (Neurontin) 300 mg PO BID [facility] Last Admin: 10/14/16 09:33 Dose: 300 mg Insulin Aspart (Novolog) 10 unit SUBCUT TIDMEALS [facility] Last Admin: 10/14/16 09:48 Dose: 10 unit Insulin Aspart (Novolog) 0 unit SUBCUT ASDIRECTED PRN; Protocol PRN Reason: Blood Glucose Last Admin: 10/14/16 09:43 Dose: 9 units Insulin Detemir (Levemir) 30 unit SUBCUT BID [facility] Last Admin: 10/14/16 09:48 Dose: 30 units Isosorbide Mononitrate (Imdur) 30 mg PO DAILY [facility] Last Admin: 10/14/16 09:34 Dose: 30 mg Lisinopril (Prinivil) 20 mg PO DAILY [facility] Last Admin: 10/14/16 09:41 Dose: 20 mg Lorazepam (Ativan) 0.5 mg PO Q4H PRN PRN Reason: Anxiety Magnesium Oxide (Magnesium Oxide) 400 mg PO BID [facility] Last Admin: 10/14/16 09:31 Dose: 400 mg Metoprolol Succinate (Toprol Xl) 25 mg PO BEDTIME [facility] Last Admin: 10/13/16 21:35 Dose: 25 mg Mometasone Furoate/Formoterol Fumar (Dulera 200-5 Mcg) 2 puff IH BIDRT [facility] Last Admin: 10/14/16 07:27 Dose: 2 puff Morphine Sulfate (Morphine) 15 - 30 mg PO Q4H PRN PRN Reason: Pain Last Admin: 10/13/16 13:49 Dose: 15 mg Ondansetron HCl (Zofran Odt) 4 mg PO Q6H PRN PRN Reason: Nausea able to take PO Last Admin: 10/13/16 14:38 Dose: 4 mg Ondansetron HCl (Zofran) 4 mg IV Q4H PRN PRN Reason: Nausea/Vomiting Oxycodone HCl (Oxycodone) 5 mg PO Q4H PRN PRN Reason: Pain (moderate 4-6) Pantoprazole Sodium (Protonix) 40 mg PO ACBREAKFAST [facility] Last Admin: 10/14/16 09:38 Dose: 40 mg Potassium Chloride (Klor-Con M20) 20 meq PO BIDMEALS [facility] Last Admin: 10/14/16 09:39 Dose: 20 meq Prednisone (Prednisone) 40 mg PO WITHBREAKFAST [facility] Last Admin: 10/14/16 09:33 Dose: 40 mg Promethazine HCl (Phenergan) 25 mg PO Q8H PRN PRN Reason: Nausea Simvastatin (Zocor) 10 mg PO BEDTIME [facility] Last Admin: 10/13/16 21:37 Dose: 10 mg Sucralfate (Carafate) 1 gm PO QIDACANDBED [facility] Last Admin: 10/14/16 09:36 Dose: 1 gm Trazodone HCl (Trazodone) 50 mg PO BEDTIME [facility] Last Admin: 10/13/16 21:37 Dose: 50 mg Verapamil HCl (Calan Sr) 180 mg PO BIDAC [facility] Last Admin: 10/14/16 09:36 Dose: 180 mg Zolpidem Tartrate (Ambien) 5 mg PO BEDTIME PRN PRN Reason: Sleep Last Admin: 10/13/16 22:28 Dose: 5 mg Discontinued Medications Albuterol/Ipratropium (Duoneb 3.0-0.5 Mg/3 Ml) 3 ml NEB ONETIME ONE Stop: 10/12/16 20:00 Last Admin: 10/12/16 20:07 Dose: 3 ml Bumetanide (Bumex) 4 mg IVPUSH ONETIME ONE Stop: 10/12/16 20:35 Last Admin: 10/12/16 21:50 Dose: 4 mg Bumetanide (Bumex) 2 mg IVPUSH Q12H [facility] Last Admin: 10/13/16 08:20 Dose: 2 mg Escitalopram Oxalate (Lexapro) 30 mg PO ONETIME ONE Stop: 10/12/16 23:46 Last Admin: 10/13/16 01:31 Dose: 30 mg Escitalopram Oxalate (Lexapro) Confirm Administered Dose 30 mg .ROUTE .STK-MED ONE Stop: 10/13/16 00:45 Last Admin: 10/13/16 01:30 Dose: Not Given Gabapentin (Neurontin) 300 mg PO ONETIME ONE Stop: 10/12/16 23:46 Last Admin: 10/13/16 01:25 Dose: 300 mg Heparin Sodium (Porcine) (Heparin Lock Flush 100 Units/Ml Syringe) Confirm Administered Dose 500 units .ROUTE .STK-MED ONE Stop: 10/13/16 05:12 Last Admin: 10/13/16 05:20 Dose: 500 units Heparin Sodium (Porcine) (Heparin Lock Flush 100 Units/Ml Syringe) Confirm Administered Dose 500 units .ROUTE .STK-MED ONE Stop: 10/14/16 09:55 Ceftriaxone Sodium 2 gm/ (Sodium Chloride) 50 mls @ 100 mls/hr IV Q24H [facility] Last Admin: 10/13/16 12:21 Dose: 100 mls/hr Insulin Aspart (Novolog) 17 unit SUBCUT ONETIME ONE Stop: 10/13/16 21:26 Last Admin: 10/13/16 21:38 Dose: 17 units Lorazepam (Ativan) 1 mg IVPUSH ONETIME ONE Stop: 10/12/16 19:56 Last Admin: 10/12/16 20:10 Dose: 1 mg Lorazepam (Ativan) 1 mg IV Q6H PRN PRN Reason: Nausea/Vomiting Lorazepam (Ativan) 0.5 mg PO BID PRN PRN Reason: Anxiety Last Admin: 10/13/16 10:07 Dose: 0.5 mg Metformin HCl (Glucophage) 850 mg PO ONETIME ONE Stop: 10/12/16 23:46 Last Admin: 10/13/16 01:28 Dose: 850 mg Metformin HCl (Glucophage) 850 mg PO BIDMEALS [facility] Last Admin: 10/13/16 08:03 Dose: 850 mg Methylprednisolone Sodium Succinate (Solu-Medrol) 125 mg IVPUSH ONETIME ONE Stop: 10/12/16 19:59 Last Admin: 10/12/16 20:08 Dose: 125 mg Methylprednisolone Sodium Succinate (Solu-Medrol) 125 mg IVPUSH Q8H [facility] Last Admin: 10/13/16 03:33 Dose: 125 mg Methylprednisolone Sodium Succinate (Solu-Medrol) 40 mg IVPUSH Q8H [facility] Last Admin: 10/14/16 04:07 Dose: 40 mg Metoprolol Succinate (Toprol Xl) 25 mg PO ONETIME ONE Stop: 10/12/16 23:46 Last Admin: 10/13/16 01:15 Dose: 25 mg Mometasone Furoate/Formoterol Fumar (Dulera 200-5 Mcg) 2 puff IH BID [facility] Last Admin: 10/13/16 01:05 Dose: 2 puff Morphine Sulfate (Morphine) 2 mg IVPUSH ONETIME ONE Stop: 10/12/16 19:58 Last Admin: 10/12/16 20:10 Dose: 2 mg Morphine Sulfate (Morphine) 15 mg PO Q4H PRN PRN Reason: Pain Last Admin: 10/13/16 01:27 Dose: 15 mg Simvastatin (Zocor) 10 mg PO ONETIME ONE Stop: 10/12/16 23:46 Last Admin: 10/13/16 01:20 Dose: 10 mg - Exam Quality Assessment: supplemental oxygen, urine catheter, DVT prophylaxis General: alert, oriented, cooperative, no acute distress Lungs: Clear to auscultation, Normal respiratory effort, Decreased breath sounds. No: Wheezing Cardiovascular: Regular Rate, Regular Rhythm, No Murmurs Abdomen: bowel sounds present, soft, no tenderness, no distension Extremities: edema Skin: warm, dry, intact - Problem List Review Problem List Initiated/Reviewed/Updated: Yes - My Orders Last 24 Hours: My Active Orders 10/14/16 09:00 Cefdinir [Omnicef] 300 mg PO BID predniSONE 40 mg PO WITHBREAKFAST 10/14/16 11:42 Remove Dougherty Catheter [Urinary Catheter Removal] [RC] Per Unit Routine 10/15/16 05:00 BASIC METABOLIC PANEL,BMP [CHEM] Timed CBC WITH AUTO DIFF [HEME] Timed 10/15/16 08:00 Bumetanide [Bumex] 2 mg PO BIDDIURETIC - Plan Plan:: ASSESSMENT / PLAN - ASSESSMENT AND PLAN HFpEF - excellent diuresis since admission, with significant improvement in shortness of breath. -Bumetanide 2 mg IV twice daily, discontinue after today -Resume Bumex 2 mg by mouth twice daily tomorrow -Supplemental oxygen -Continue home medications Acute cystitis - urinalysis suggestive of infection and the patient does have urinary symptoms that would fit with infection. -Urine culture pending -Discontinue IV Rocephin -Omnicef 300 mg by mouth twice daily pending culture results COPD - presumably secondary to rheumatoid arthritis with lung involvement. Shortness of breath has significantly improved with diuresis. -Discontinue Solu-Medrol -Prednisone 40 mg by mouth daily -Continue scheduled and as needed nebulizers DIABTETS TYPE 2 -Levemir 30 units subcut bid -Novolog 10 units with meals -Sliding scale coverage; high dose -Resume metformin CHRONIC PAIN - stable -medication order Maintenance issues -Nutrition: diabetic diet -Dougherty catheter placed for strict I and 0 -DVT: scd -GI; Protonix 40mg daily Disposition; anticipate discharge to home in a.m.
[2016-10-14] MEDS: traZODone 50 MG Tab PO SCH (20:30)
[2016-10-14] MEDS: Metoprolol Succinate 25 MG Tab.ER PO SCH (20:30)
[2016-10-14] MEDS: ESCITALOPRAM PO SCH ×2 (20:31)
[2016-10-14] MEDS: Simvastatin 20 MG Tab PO SCH (20:32)
[2016-10-14] MEDS: Zolpidem 5 MG Tab PO PRN (22:49)
[2016-10-15] MEDS: Albuterol/Ipratropium 3.0-0.5 MG/3 ML Neb Soln INH SCH ×4 (07:00→21:24)
[2016-10-15] MEDS: Formoterol/Mometasone 200-5 MCG 8.8 GM Inhaler IH SCH ×2 (07:00→21:21)
[2016-10-15] MEDS: Sucralfate 1 GM Tab PO SCH ×4 (09:06→19:32)
[2016-10-15] MEDS: Pantoprazole 40 MG Tab.CR PO SCH (09:07)
[2016-10-15] MEDS: Verapamil 180 MG Tab.ER PO SCH ×2 (09:07→17:28)
[2016-10-15] MEDS: Bumetanide 1 MG Tab PO SCH ×2 (09:07→13:57)
[2016-10-15] MEDS ORDERED: Potassium Chloride 20 MEQ Tab.ER PO ONE (09:12)
[2016-10-15] MEDS: Potassium Chloride 20 MEQ Tab.ER PO SCH ×2 (09:22→17:29)
[2016-10-15] MEDS: predniSONE 20 MG Tab PO SCH (09:22)
[2016-10-15] MEDS: Aspirin 81 MG Tab.Chew PO SCH (09:22)
[2016-10-15] MEDS: Isosorbide Mononitrate 30 MG Tab.ER PO SCH (09:23)
[2016-10-15] MEDS: Folic Acid 1 MG Tab PO SCH (09:23)
[2016-10-15] MEDS: Ferrous Sulfate 325 MG Tab PO SCH (09:23)
[2016-10-15] MEDS: Cefdinir 300 MG Cap PO SCH ×2 (09:24→21:26)
[2016-10-15] MEDS: Gabapentin 300 MG Cap PO SCH ×2 (09:24→21:24)
[2016-10-15] MEDS: Magnesium Oxide 400 MG Tab PO SCH ×2 (09:24→21:24)
[2016-10-15] MEDS: Lisinopril 20 MG Tab PO SCH (09:25)
[2016-10-15] MEDS: acetaZOLAMIDE 250 MG Tab PO SCH ×2 (09:27→21:23)
[2016-10-15] MEDS: Insulin Detemir 100 Units/ML 3 ML Pen SUBCUT SCH ×2 (09:49→21:30)
[2016-10-15] MEDS: Insulin Aspart 100 Units/ML 3 ML Pen SUBCUT SCH ×3 (09:50→18:08)
[2016-10-15] MEDS: Insulin Aspart 100 Units/ML 3 ML Pen SUBCUT PRN ×4 (09:50→21:33)
[2016-10-15] MEDS: Enoxaparin 40 MG/0.4 ML Syringe SUBCUT SCH (11:15)
[2016-10-15] MEDS: Morphine 15 MG Tab PO PRN (14:48)
--- NOTE | 2016-10-15 15:34 | PCM.PN ---
- General Info Date of Service: 10/15/16 Functional Status: Reports: pain controlled, tolerating diet - Review of Systems General: Denies: Fever, Weakness, Chills Pulmonary: Reports: no symptoms Cardiovascular: Reports: No Symptoms Gastrointestinal: Reports: No symptoms Musculoskeletal: Reports: foot pain Systems Review Comment:: Dipti is done well with further diuresis over the past 24 hours, now during the day today has developed diffuse abdominal pain and mild nausea. Vital signs have been stable and she has remained afebrile, white blood cell count remains modestly elevated likely secondary to glucocorticoid therapy. - Patient Data Vitals - most recent: Last Vital Signs Temp 98.7 F 10/15/16 15:05 Pulse 91 10/15/16 15:05 Resp 16 10/15/16 15:05 BP 148/79 H 10/15/16 15:05 Pulse Ox 91 L 10/15/16 15:05 Weight - most recent: 294 lb 3.2 oz I&O - last 24 hours: Intake & Output 10/15/16 10/15/16 10/15/16 06:59 14:59 22:59 Intake Total 720 Output Total 500 1250 Balance -500 -530 Lab Results last 24 hrs: Laboratory Results - last 24 hr 10/15/16 10/15/16 Range/Units 04:45 04:45 WBC 12.5 H (4.5-11.0) K/uL RBC 4.19 (3.30-5.50) M/uL Hgb 10.8 L (12.0-15.0) g/dL Hct 36.4 (36.0-48.0) % MCV 87 (80-98) fL MCH 26 L (27-31) pg MCHC 30 L (32-36) % Plt Count 301 (150-400) K/uL Neut % (Auto) 76 H (36-66) % Lymph % (Auto) 14 L (24-44) % [place] % (Auto) 10 H (2-6) % Eos % (Auto) 0 L (2-4) % Baso % (Auto) 0 (0-1) % Sodium 144 (140-148) mmol/L Potassium 3.5 L (3.6-5.2) mmol/L Chloride 101 (100-108) mmol/L Carbon Dioxide 38 H (21-32) mmol/L Anion Gap 8.5 (5.0-14.0) mmol/L BUN 30 H (7-18) mg/dL Creatinine 0.7 (0.6-1.0) mg/dL Est Cr Clr Drug Dosing 78.43 mL/min Estimated GFR (MDRD) > 60 (>60) Glucose 207 H (74-106) mg/dL Calcium 8.1 L (8.5-10.1) mg/dL Frank Results last 24 hrs: Microbiology 10/13/16 14:27 Urine Culture - Preliminary Urine, Catheterized Med Orders - Current: Current Medications Acetaminophen (Tylenol) 650 mg PO Q4H PRN PRN Reason: Pain (Mild 1-3)/fever Acetazolamide (Diamox) 250 mg PO BID [facility] Stop: 10/15/16 23:59 Last Admin: 10/15/16 09:27 Dose: 250 mg Albuterol (Proventil Neb Soln) 2.5 mg NEB Q4H PRN PRN Reason: Shortness Of Breath/wheezing Albuterol/Ipratropium (Duoneb 3.0-0.5 Mg/3 Ml) 3 ml NEB QID PRN PRN Reason: Shortness Of Breath/wheezing Last Admin: 10/13/16 01:02 Dose: 3 ml Albuterol/Ipratropium (Duoneb 3.0-0.5 Mg/3 Ml) 3 ml INH QIDRT [facility] Last Admin: 10/15/16 14:33 Dose: 3 ml Alprazolam (Xanax) 0.25 mg PO Q4H PRN PRN Reason: Anxiety Aspirin (Aspirin) 81 mg PO DAILY [facility] Last Admin: 10/15/16 09:22 Dose: 81 mg Azathioprine (Imuran) 150 mg PO DAILY [facility] Last Admin: 10/15/16 09:24 Dose: 150 mg Bisacodyl (Dulcolax) 5 mg PO DAILY PRN PRN Reason: Constipation Last Admin: 10/15/16 14:48 Dose: 5 mg Bumetanide (Bumex) 2 mg PO BIDDIURETIC [facility] Last Admin: 10/15/16 13:57 Dose: 2 mg Cefdinir (Omnicef) 300 mg PO BID [facility] Last Admin: 10/15/16 09:24 Dose: 300 mg Cyclobenzaprine HCl (Flexeril) 10 mg PO TID PRN PRN Reason: Pain Docusate Sodium (Colace) 100 mg PO BID PRN PRN Reason: Constipation Enoxaparin Sodium (Lovenox) 40 mg SUBCUT DAILY [facility] Last Admin: 10/15/16 11:15 Dose: 40 mg Escitalopram Oxalate 10 mg/ (Escitalopram Oxalate 20 mg) 30 mg PO BEDTIME [facility] Last Admin: 10/14/16 20:31 Dose: 30 mg Ferrous Sulfate (Ferrous Sulfate) 325 mg PO DAILY [facility] Last Admin: 10/15/16 09:23 Dose: 325 mg Folic Acid (Folic Acid) 1 mg PO DAILY [facility] Last Admin: 10/15/16 09:23 Dose: 1 mg Gabapentin (Neurontin) 300 mg PO BID [facility] Last Admin: 10/15/16 09:24 Dose: 300 mg Heparin Sodium (Porcine) (Heparin Lock Flush 100 Units/Ml Syringe) 500 units FLUSH ASDIRECTED PRN PRN Reason: Keep Vein Open Last Admin: 10/15/16 05:06 Dose: 500 units Insulin Aspart (Novolog) 10 unit SUBCUT TIDMEALS [facility] Last Admin: 10/15/16 13:58 Dose: 10 unit Insulin Aspart (Novolog) 0 unit SUBCUT ASDIRECTED PRN; Protocol PRN Reason: Blood Glucose Last Admin: 10/15/16 13:59 Dose: 6 units Insulin Detemir (Levemir) 30 unit SUBCUT BID [facility] Last Admin: 10/15/16 09:49 Dose: 30 units Isosorbide Mononitrate (Imdur) 30 mg PO DAILY [facility] Last Admin: 10/15/16 09:23 Dose: 30 mg Lisinopril (Prinivil) 20 mg PO DAILY [facility] Last Admin: 10/15/16 09:25 Dose: 20 mg Lorazepam (Ativan) 0.5 mg PO Q4H PRN PRN Reason: Anxiety Last Admin: 10/14/16 13:47 Dose: 0.5 mg Magnesium Oxide (Magnesium Oxide) 400 mg PO BID [facility] Last Admin: 10/15/16 09:24 Dose: 400 mg Metformin HCl (Glucophage) 850 mg PO BIDMEALS [facility] Last Admin: 10/15/16 09:21 Dose: 850 mg Metoprolol Succinate (Toprol Xl) 25 mg PO BEDTIME [facility] Last Admin: 10/14/16 20:30 Dose: 25 mg Mometasone Furoate/Formoterol Fumar (Dulera 200-5 Mcg) 2 puff IH BIDRT [facility] Last Admin: 10/15/16 07:00 Dose: 2 puff Morphine Sulfate (Morphine) 15 - 30 mg PO Q4H PRN PRN Reason: Pain Last Admin: 10/15/16 14:48 Dose: 15 mg Ondansetron HCl (Zofran Odt) 4 mg PO Q6H PRN PRN Reason: Nausea able to take PO Last Admin: 10/13/16 14:38 Dose: 4 mg Ondansetron HCl (Zofran) 4 mg IV Q4H PRN PRN Reason: Nausea/Vomiting Oxycodone HCl (Oxycodone) 10 mg PO Q4H PRN PRN Reason: Pain (moderate 4-6) Pantoprazole Sodium (Protonix) 40 mg PO ACBREAKFAST [facility] Last Admin: 10/15/16 09:07 Dose: 40 mg Potassium Chloride (Klor-Con M20) 20 meq PO BIDMEALS [facility] Last Admin: 10/15/16 09:22 Dose: 20 meq Prednisone (Prednisone) 40 mg PO WITHBREAKFAST [facility] Last Admin: 10/15/16 09:22 Dose: 40 mg Promethazine HCl (Phenergan) 25 mg PO Q8H PRN PRN Reason: Nausea Last Admin: 10/15/16 12:54 Dose: 25 mg Simvastatin (Zocor) 10 mg PO BEDTIME [facility] Last Admin: 10/14/16 20:32 Dose: 10 mg Sucralfate (Carafate) 1 gm PO QIDACANDBED [facility] Last Admin: 10/15/16 13:55 Dose: Not Given Trazodone HCl (Trazodone) 50 mg PO BEDTIME [facility] Last Admin: 10/14/16 20:30 Dose: 50 mg Verapamil HCl (Calan Sr) 180 mg PO BIDAC [facility] Last Admin: 10/15/16 09:07 Dose: 180 mg Zolpidem Tartrate (Ambien) 5 mg PO BEDTIME PRN PRN Reason: Sleep Last Admin: 10/14/16 22:49 Dose: 5 mg Discontinued Medications Albuterol/Ipratropium (Duoneb 3.0-0.5 Mg/3 Ml) 3 ml NEB ONETIME ONE Stop: 10/12/16 20:00 Last Admin: 10/12/16 20:07 Dose: 3 ml Bumetanide (Bumex) 4 mg IVPUSH ONETIME ONE Stop: 10/12/16 20:35 Last Admin: 10/12/16 21:50 Dose: 4 mg Bumetanide (Bumex) 2 mg IVPUSH Q12H [facility] Last Admin: 10/13/16 08:20 Dose: 2 mg Bumetanide (Bumex) 2 mg IVPUSH BIDDIURETIC [facility] Stop: 10/14/16 23:59 Last Admin: 10/14/16 13:34 Dose: 2 mg Escitalopram Oxalate (Lexapro) 30 mg PO ONETIME ONE Stop: 10/12/16 23:46 Last Admin: 10/13/16 01:31 Dose: 30 mg Escitalopram Oxalate (Lexapro) Confirm Administered Dose 30 mg .ROUTE .STK-MED ONE Stop: 10/13/16 00:45 Last Admin: 10/13/16 01:30 Dose: Not Given Gabapentin (Neurontin) 300 mg PO ONETIME ONE Stop: 10/12/16 23:46 Last Admin: 10/13/16 01:25 Dose: 300 mg Heparin Sodium (Porcine) (Heparin Lock Flush 100 Units/Ml Syringe) Confirm Administered Dose 500 units .ROUTE .STK-MED ONE Stop: 10/13/16 05:12 Last Admin: 10/14/16 13:45 Dose: 500 units Heparin Sodium (Porcine) (Heparin Lock Flush 100 Units/Ml Syringe) Confirm Administered Dose 500 units .ROUTE .STK-MED ONE Stop: 10/14/16 09:55 Last Admin: 10/14/16 13:37 Dose: 500 units Heparin Sodium (Porcine) (Heparin Lock Flush 100 Units/Ml Syringe) Confirm Administered Dose 500 units .ROUTE .STK-MED ONE Stop: 10/14/16 13:43 Last Admin: 10/14/16 18:54 Dose: 500 units Heparin Sodium (Porcine) (Heparin Lock Flush 100 Units/Ml Syringe) Confirm Administered Dose 500 units .ROUTE .STK-MED ONE Stop: 10/15/16 04:44 Last Admin: 10/15/16 05:05 Dose: Not Given Ceftriaxone Sodium 2 gm/ (Sodium Chloride) 50 mls @ 100 mls/hr IV Q24H [facility] Last Admin: 10/13/16 12:21 Dose: 100 mls/hr Insulin Aspart (Novolog) 17 unit SUBCUT ONETIME ONE Stop: 10/13/16 21:26 Last Admin: 10/13/16 21:38 Dose: 17 units Lorazepam (Ativan) 1 mg IVPUSH ONETIME ONE Stop: 10/12/16 19:56 Last Admin: 10/12/16 20:10 Dose: 1 mg Lorazepam (Ativan) 1 mg IV Q6H PRN PRN Reason: Nausea/Vomiting Lorazepam (Ativan) 0.5 mg PO BID PRN PRN Reason: Anxiety Last Admin: 10/13/16 10:07 Dose: 0.5 mg Metformin HCl (Glucophage) 850 mg PO ONETIME ONE Stop: 10/12/16 23:46 Last Admin: 10/13/16 01:28 Dose: 850 mg [facility]) [facility] Last Admin: 10/13/16 08:03 Dose: 850 mg Methylprednisolone Sodium Succinate (Solu-Medrol) 125 mg IVPUSH ONETIME ONE Stop: 10/12/16 19:59 Last Admin: 10/12/16 20:08 Dose: 125 mg Methylprednisolone Sodium Succinate (Solu-Medrol) 125 mg IVPUSH Q8H [facility] Last Admin: 10/13/16 03:33 Dose: 125 mg Methylprednisolone Sodium Succinate (Solu-Medrol) 40 mg IVPUSH Q8H [facility] Last Admin: 10/14/16 04:07 Dose: 40 mg Metoprolol Succinate (Toprol Xl) 25 mg PO ONETIME ONE Stop: 10/12/16 23:46 Last Admin: 10/13/16 01:15 Dose: 25 mg Mometasone Furoate/Formoterol Fumar (Dulera 200-5 Mcg) 2 puff IH BID [facility] Last Admin: 10/13/16 01:05 Dose: 2 puff Morphine Sulfate (Morphine) 2 mg IVPUSH ONETIME ONE Stop: 10/12/16 19:58 Last Admin: 10/12/16 20:10 Dose: 2 mg Morphine Sulfate (Morphine) 15 mg PO Q4H PRN PRN Reason: Pain Last Admin: 10/13/16 01:27 Dose: 15 mg Oxycodone HCl (Oxycodone) 5 mg PO Q4H PRN PRN Reason: Pain (moderate 4-6) Potassium Chloride (Klor-Con M20) 40 meq PO ONETIME ONE Stop: 10/15/16 09:13 Last Admin: 10/15/16 09:27 Dose: 40 meq Simvastatin (Zocor) 10 mg PO ONETIME ONE Stop: 10/12/16 23:46 Last Admin: 10/13/16 01:20 Dose: 10 mg - Exam Quality Assessment: supplemental oxygen, DVT prophylaxis General: alert, oriented, cooperative, mild distress Lungs: Normal respiratory effort, Decreased breath sounds. No: Crackles, Rales , Rhonchi, Rub, Stridor, Wheezing Cardiovascular: Regular Rate, Regular Rhythm, No Murmurs Abdomen: bowel sounds present, soft, no tenderness, no distension Extremities: no edema Skin: warm, dry, intact - Problem List Review Problem List Initiated/Reviewed/Updated: Yes - My Orders Last 24 Hours: My Active Orders 10/14/16 17:00 metFORMIN [Glucophage] 850 mg PO BIDMEALS 10/15/16 04:56 Heparin Sodium [Heparin Lock Flush 100 Units/ML Syringe] 500 units FLUSH ASDIRECTED PRN 10/15/16 08:00 Bumetanide [Bumex] 2 mg PO BIDDIURETIC 10/15/16 09:15 acetaZOLAMIDE [Diamox] 250 mg PO BID 10/15/16 15:28 oxyCODONE 10 mg PO Q4H PRN 10/16/16 05:00 BASIC METABOLIC PANEL,BMP [CHEM] Timed CBC WITH AUTO DIFF [HEME] Timed - Plan Plan:: ASSESSMENT / PLAN - ASSESSMENT AND PLAN Congestive heart failure with preserved left ventricular function - excellent diuresis since admission, with significant improvement in shortness of breath. -Bumex 2 mg by mouth twice daily tomorrow -Supplemental oxygen -Continue home medications Acute cystitis - urinalysis suggestive of infection and the patient does have urinary symptoms that would fit with infection. 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 Shortness of breath has significantly improved with diuresis. -Prednisone 40 mg by mouth daily -Continue scheduled and as needed nebulizers Abdominal discomfort-vital signs have been stable and she has been afebrile -Continue Protonix once daily -Pain medication and antiemetic therapy as needed -Consider further evaluation if symptoms worsen or does not improve DIABTETS TYPE 2 -Levemir 30 units subcut bid -Novolog 10 units with meals -Sliding scale coverage; high dose -Resume metformin CHRONIC PAIN - stable -medication order Maintenance issues -Nutrition: diabetic diet -Dougherty catheter placed for strict I and 0 -DVT: scd -GI; Protonix 40mg daily Disposition; anticipate discharge to home in a.m.
[2016-10-15] MEDS ORDERED: Magnesium Hydroxide 400 MG/5 ML Susp 30 ML Cup PO PRN (16:21)
[2016-10-15] MEDS: oxyCODONE 5 MG Tab PO PRN ×2 (16:26→21:59)
[2016-10-15] MEDS: ESCITALOPRAM PO SCH ×2 (21:25)
[2016-10-15] MEDS: traZODone 50 MG Tab PO SCH (21:27)
[2016-10-15] MEDS: Simvastatin 20 MG Tab PO SCH (21:28)
[2016-10-15] MEDS: Metoprolol Succinate 25 MG Tab.ER PO SCH (21:30)
[2016-10-16] MEDS: Sucralfate 1 GM Tab PO SCH ×3 (06:59→11:51)
[2016-10-16] MEDS: Pantoprazole 40 MG Tab.CR PO SCH (06:59)
[2016-10-16] MEDS: Verapamil 180 MG Tab.ER PO SCH (06:59)
[2016-10-16] MEDS: Albuterol/Ipratropium 3.0-0.5 MG/3 ML Neb Soln INH SCH ×2 (07:06→10:49)
[2016-10-16] MEDS: Formoterol/Mometasone 200-5 MCG 8.8 GM Inhaler IH SCH (07:52)
[2016-10-16] MEDS: Potassium Chloride 20 MEQ Tab.ER PO SCH (08:01)
[2016-10-16] MEDS: Isosorbide Mononitrate 30 MG Tab.ER PO SCH (08:01)
[2016-10-16] MEDS: Magnesium Oxide 400 MG Tab PO SCH (08:01)
[2016-10-16] MEDS: Aspirin 81 MG Tab.Chew PO SCH (08:02)
[2016-10-16] MEDS: Cefdinir 300 MG Cap PO SCH (08:02)
[2016-10-16] MEDS: Ferrous Sulfate 325 MG Tab PO SCH (08:03)
[2016-10-16] MEDS: Bumetanide 1 MG Tab PO SCH (08:03)
[2016-10-16] MEDS: Lisinopril 20 MG Tab PO SCH (08:04)
[2016-10-16] MEDS: predniSONE 20 MG Tab PO SCH (08:04)
[2016-10-16] MEDS: Folic Acid 1 MG Tab PO SCH (08:04)
[2016-10-16] MEDS: Gabapentin 300 MG Cap PO SCH (08:05)
[2016-10-16] MEDS: Insulin Aspart 100 Units/ML 3 ML Pen SUBCUT SCH ×2 (08:07→11:52)
[2016-10-16] MEDS: Insulin Detemir 100 Units/ML 3 ML Pen SUBCUT SCH (08:09)
[2016-10-16] MEDS: Enoxaparin 40 MG/0.4 ML Syringe SUBCUT SCH (08:12)
[2016-10-16 11:16] VITALS: BP 110/59
[2016-10-16] MEDS: Insulin Aspart 100 Units/ML 3 ML Pen SUBCUT PRN (11:53)
--- NOTE | 2016-10-16 12:08 | PCM.DCSUM1 ---
Discharge Summary - Hospital Course Brief History: This patient is a 60-year-old woman who was admitted through the emergency department because of congestive heart failure with preserved left ventricular function and associated fluid overload. - Discharge Data Discharge Date: 10/16/16 Discharge Disposition: Home, Self-Care 01 Condition: Fair - Discharge Diagnosis/Problem(s) (1) (HFpEF) heart failure with preserved ejection fraction SNOMED Code(s): 43970421 ICD Code: I50.30 - UNSPECIFIED DIASTOLIC (CONGESTIVE) HEART FAILURE Status : Chronic Current Visit: No (2) Diabetes mellitus type 2 SNOMED Code(s): 96463691 ICD Code: E11.9 - TYPE 2 DIABETES MELLITUS WITHOUT COMPLICATIONS Status: Chronic Priority: High Current Visit: No (3) COLD, Chronic obstructive lung disease SNOMED Code(s): 41532506 ICD Code: J44.9 - CHRONIC OBSTRUCTIVE PULMONARY DISEASE, UNSPECIFIED Status : Chronic Priority: High Current Visit: No - Patient Summary/Data Consults: Consultations 10/12/16 22:50 PT Evaluation and Treatment [CONS] Routine Please Evaluate and Treat. PT Reason for Consult: Strengthening This query below is only for informational purposes and is not editable. Hospital Course: This patient is a 60-year-old woman with multiple medical problems including rheumatoid arthritis, severe pulmonary disease secondary to rheumatoid arthritis , type 2 diabetes mellitus, morbid obesity, and congestive heart failure with preserved left ventricular function. She developed increased peripheral edema and significant weight gain with associated shortness of breath. On evaluation in the emergency department was found to have pulmonary edema and peripheral edema. She was admitted to the hospital and treated with IV diuretic therapy using Bumex. Over the next few days of hospitalization she had an excellent diuresis and by discharge had gone even below her previous baseline weight with diuresis approximating 11 L. Level of dyspnea was back to baseline and her peripheral edema had essentially resolved. Urinalysis at the time of admission did suggest urinary tract infection, urine culture grow out pansensitive Klebsiella. She will be discharged home with additional antibiotic therapy. Activity will be as tolerated and she will resume her usual strict 2 g sodium diet as well as diabetic diet. Followup appointment will be scheduled with Dr. Gonsalez within one week. - Patient Instructions Diet: Low Sodium, Diabetic Diet Activity: As Tolerated Other/Special Instructions: Schedule followup appointment with Dr. Gonsalez within one week. - Discharge Plan Home Medications: Home Meds Albuterol [Ventolin HFA] 2 puff INH ASDIRECTED PRN 03/01/13 [History] Escitalopram [Lexapro] 30 mg PO BEDTIME 03/01/13 [History] Ipratropium/Albuterol Sulfate [Duoneb 0.5 MG-3 MG/3 ML] 3 ml INH QID 03/01/13 [ History] Metoprolol Succinate [Toprol XL] 25 mg PO BEDTIME 03/01/13 [History] Verapamil HCl [Verelan] 180 mg PO BIDAC 03/01/13 [History] Aspirin 81 mg PO DAILY 08/30/13 [History] Simvastatin [Zocor] 10 mg PO BEDTIME 08/30/13 [History] Magnesium Oxide 400 mg PO BID 09/01/13 [History] Lactobacillus Acidophilus [Probiotic] 1 cap PO BID 04/05/14 [History] Cyclobenzaprine [Flexeril] 10 mg PO TID PRN 09/27/14 [History] Folic Acid 1 mg PO DAILY 09/27/14 [History] metFORMIN [Glucophage] 850 mg PO BID 09/27/14 [History] Gabapentin [Neurontin] 300 mg PO BID 03/28/15 [History] Lisinopril 20 mg PO DAILY 03/28/15 [History] Oxybutynin [Oxybutynin ER] 10 mg PO DAILY 03/28/15 [History] Promethazine [Phenergan] 25 mg PO Q8H PRN 03/28/15 [History] traZODone 50 mg PO BEDTIME 03/28/15 [History] Potassium Chloride [Klor-Con M20] 20 meq PO BID #60 tab.er 07/29/15 [Rx] Cyanocobalamin (Vitamin B12) [Vitamin B12] 1,000 mcg IM Q30D 09/26/15 [History] Ergocalciferol (Vitamin D2) [Vitamin D2] 50,000 unit PO WEEKLY 09/26/15 [History ] Ferrous Sulfate 325 mg PO DAILY 09/26/15 [History] Fluticasone/Salmeterol [Advair Diskus 500-50] 1 puff INH BID 12/05/15 [History] azaTHIOprine [Azathioprine] 150 mg PO DAILY 12/05/15 [History] ALPRAZolam [Alprazolam] 0.25 mg PO ASDIRECTED 04/12/16 [History] Isosorbide Mononitrate [Isosorbide Mononitrate ER] 30 mg PO DAILY 04/12/16 [ History] Morphine Sulfate 15 mg PO Q4H PRN 04/12/16 [History] Sucralfate [Carafate] 1 gm PO QIDACANDBED 05/10/16 [History] Bumetanide [Bumex] 2 mg PO BID #60 tablet 05/17/16 [Rx] Insulin Aspart [NovoLOG] 10 unit SUBCUT TIDMEALS 06/05/16 [History] Pantoprazole [ProTONIX] 40 mg PO DAILY 07/13/16 [History] Clotrimazole [Mycelex] 10 mg PO DAILY 07/29/16 [History] Insulin Detemir [Levemir Flextouch] 30 units SQ BID #300 ml 08/28/16 [Rx] LORazepam [Ativan] 0.5 mg PO BID PRN #30 tablet 08/28/16 [Rx] Prednisone [IJD: predniSONE] 20 mg PO ASDIRECTED #30 tablet 08/28/16 [Rx] Referrals: Arnulfo Gonsalez MD [Primary Care Provider] - - Patient Data Vitals - Most Recent: Last Vital Signs Temp 97.5 F 10/16/16 11:15 Pulse 74 10/16/16 11:15 Resp 16 10/16/16 11:15 BP 110/59 L 10/16/16 11:15 Pulse Ox 93 L 10/16/16 11:15 Weight - Most Recent: 293 lb 3.2 oz I&O - Last 24 hours: Intake & Output 10/15/16 10/16/16 10/16/16 22:59 06:59 14:59 Intake Total 240 360 Balance 240 360 Lab Results - Last 24 hrs: Laboratory Results - last 24 hr 10/16/16 10/16/16 Range/Units 05:53 05:53 WBC 12.9 H (4.5-11.0) K/uL RBC 4.26 (3.30-5.50) M/uL Hgb 11.3 L (12.0-15.0) g/dL Hct 37.6 (36.0-48.0) % MCV 88 (80-98) fL MCH 27 (27-31) pg MCHC 30 L (32-36) % Plt Count 305 (150-400) K/uL Neut % (Auto) 73 H (36-66) % Lymph % (Auto) 17 L (24-44) % Wake % (Auto) 10 H (2-6) % Eos % (Auto) 1 L (2-4) % Baso % (Auto) 0 (0-1) % Sodium 143 (140-148) mmol/L Potassium 3.9 (3.6-5.2) mmol/L Chloride 104 (100-108) mmol/L Carbon Dioxide 36 H (21-32) mmol/L Anion Gap 6.9 (5.0-14.0) mmol/L BUN 26 H (7-18) mg/dL Creatinine 0.8 (0.6-1.0) mg/dL Est Cr Clr Drug Dosing 68.63 mL/min Estimated GFR (MDRD) > 60 (>60) Glucose 159 H (74-106) mg/dL Calcium 8.0 L (8.5-10.1) mg/dL [facility]AY[facility]OR Results - Last 24 hrs: Microbiology 10/13/16 14:27 Urine Culture - Final Urine, Catheterized Klebsiella Pneumonia Ss Pneumo Med Orders - Current: Current Medications Acetaminophen (Tylenol) 650 mg PO Q4H PRN PRN Reason: Pain (Mild 1-3)/fever Albuterol (Proventil Neb Soln) 2.5 mg NEB Q4H PRN PRN Reason: Shortness Of Breath/wheezing Albuterol/Ipratropium (Duoneb 3.0-0.5 Mg/3 Ml) 3 ml NEB QID PRN PRN Reason: Shortness Of Breath/wheezing Last Admin: 10/13/16 01:02 Dose: 3 ml Albuterol/Ipratropium (Duoneb 3.0-0.5 Mg/3 Ml) 3 ml INH QIDRT [facility] Last Admin: 10/16/16 10:49 Dose: 3 ml Alprazolam (Xanax) 0.25 mg PO Q4H PRN PRN Reason: Anxiety Aspirin (Aspirin) 81 mg PO DAILY [facility] Last Admin: 10/16/16 08:02 Dose: 81 mg Azathioprine (Imuran) 150 mg PO DAILY [facility] Last Admin: 10/16/16 08:05 Dose: 150 mg Bisacodyl (Dulcolax) 5 mg PO DAILY PRN PRN Reason: Constipation Last Admin: 10/15/16 14:48 Dose: 5 mg Bumetanide (Bumex) 2 mg PO BIDDIURETIC [facility] Last Admin: 10/16/16 08:03 Dose: 2 mg Cefdinir (Omnicef) 300 mg PO BID [facility] Last Admin: 10/16/16 08:02 Dose: 300 mg Cyclobenzaprine HCl (Flexeril) 10 mg PO TID PRN PRN Reason: Pain Docusate Sodium (Colace) 100 mg PO BID PRN PRN Reason: Constipation Enoxaparin Sodium (Lovenox) 40 mg SUBCUT DAILY [facility] Last Admin: 10/16/16 08:12 Dose: 40 mg Escitalopram Oxalate 10 mg/ (Escitalopram Oxalate 20 mg) 30 mg PO BEDTIME [facility] Last Admin: 10/15/16 21:25 Dose: 30 mg Ferrous Sulfate (Ferrous Sulfate) 325 mg PO DAILY [facility] Last Admin: 10/16/16 08:03 Dose: 325 mg Folic Acid (Folic Acid) 1 mg PO DAILY [facility] Last Admin: 10/16/16 08:04 Dose: 1 mg Gabapentin (Neurontin) 300 mg PO BID [facility] Last Admin: 10/16/16 08:05 Dose: 300 mg Heparin Sodium (Porcine) (Heparin Lock Flush 100 Units/Ml Syringe) 500 units FLUSH ASDIRECTED PRN PRN Reason: Keep Vein Open Last Admin: 10/16/16 05:32 Dose: 500 units Insulin Aspart (Novolog) 10 unit SUBCUT TIDMEALS [facility] Last Admin: 10/16/16 11:52 Dose: 10 unit Insulin Aspart (Novolog) 0 unit SUBCUT ASDIRECTED PRN; Protocol PRN Reason: Blood Glucose Last Admin: 10/16/16 11:53 Dose: 3 units Insulin Detemir (Levemir) 30 unit SUBCUT BID [facility] Last Admin: 10/16/16 08:09 Dose: 30 units Isosorbide Mononitrate (Imdur) 30 mg PO DAILY [facility] Last Admin: 10/16/16 08:01 Dose: 30 mg Lisinopril (Prinivil) 20 mg PO DAILY [facility] Last Admin: 10/16/16 08:04 Dose: 20 mg Lorazepam (Ativan) 0.5 mg PO Q4H PRN PRN Reason: Anxiety Last Admin: 10/14/16 13:47 Dose: 0.5 mg Magnesium Hydroxide (Milk Of Magnesia) 30 ml PO DAILY PRN PRN Reason: Constipation Last Admin: 10/15/16 16:33 Dose: 30 ml Magnesium Oxide (Magnesium Oxide) 400 mg PO BID [facility] Last Admin: 10/16/16 08:01 Dose: 400 mg Metformin HCl (Glucophage) 850 mg PO BIDMEALS [facility] Last Admin: 10/16/16 07:00 Dose: 850 mg Metoprolol Succinate (Toprol Xl) 25 mg PO BEDTIME [facility] Last Admin: 10/15/16 21:30 Dose: 25 mg Mometasone Furoate/Formoterol Fumar (Dulera 200-5 Mcg) 2 puff IH BIDRT [facility] Last Admin: 10/16/16 07:52 Dose: 2 puff Morphine Sulfate (Morphine) 15 - 30 mg PO Q4H PRN PRN Reason: Pain Last Admin: 10/15/16 14:48 Dose: 15 mg Ondansetron HCl (Zofran Odt) 4 mg PO Q6H PRN PRN Reason: Nausea able to take PO Last Admin: 10/13/16 14:38 Dose: 4 mg Ondansetron HCl (Zofran) 4 mg IV Q4H PRN PRN Reason: Nausea/Vomiting Oxycodone HCl (Oxycodone) 10 mg PO Q4H PRN PRN Reason: Pain (moderate 4-6) Last Admin: 10/15/16 21:59 Dose: 10 mg Pantoprazole Sodium (Protonix) 40 mg PO ACBREAKFAST [facility] Last Admin: 10/16/16 06:59 Dose: 40 mg Potassium Chloride (Klor-Con M20) 20 meq PO BIDMEALS [facility] Last Admin: 10/16/16 08:01 Dose: 20 meq Prednisone (Prednisone) 40 mg PO WITHBREAKFAST [facility] Last Admin: 10/16/16 08:04 Dose: 40 mg Promethazine HCl (Phenergan) 25 mg PO Q8H PRN PRN Reason: Nausea Last Admin: 10/15/16 12:54 Dose: 25 mg Simvastatin (Zocor) 10 mg PO BEDTIME [facility] Last Admin: 10/15/16 21:28 Dose: 10 mg Sucralfate (Carafate) 1 gm PO QIDACANDBED [facility] Last Admin: 10/16/16 11:51 Dose: Not Given Trazodone HCl (Trazodone) 50 mg PO BEDTIME [facility] Last Admin: 10/15/16 21:27 Dose: 50 mg Verapamil HCl (Calan Sr) 180 mg PO BIDAC [facility] Last Admin: 10/16/16 06:59 Dose: 180 mg Zolpidem Tartrate (Ambien) 5 mg PO BEDTIME PRN PRN Reason: Sleep Last Admin: 10/14/16 22:49 Dose: 5 mg Discontinued Medications Acetazolamide (Diamox) 250 mg PO BID [facility] Stop: 10/15/16 23:59 Last Admin: 10/15/16 21:23 Dose: 250 mg Albuterol/Ipratropium (Duoneb 3.0-0.5 Mg/3 Ml) 3 ml NEB ONETIME ONE Stop: 10/12/16 20:00 Last Admin: 10/12/16 20:07 Dose: 3 ml Bumetanide (Bumex) 4 mg IVPUSH ONETIME ONE Stop: 10/12/16 20:35 Last Admin: 10/12/16 21:50 Dose: 4 mg Bumetanide (Bumex) 2 mg IVPUSH Q12H [facility] Last Admin: 10/13/16 08:20 Dose: 2 mg Bumetanide (Bumex) 2 mg IVPUSH BIDDIURETIC [facility] Stop: 10/14/16 23:59 Last Admin: 10/14/16 13:34 Dose: 2 mg Escitalopram Oxalate (Lexapro) 30 mg PO ONETIME ONE Stop: 10/12/16 23:46 Last Admin: 10/13/16 01:31 Dose: 30 mg Escitalopram Oxalate (Lexapro) Confirm Administered Dose 30 mg .ROUTE .STK-MED ONE Stop: 10/13/16 00:45 Last Admin: 10/13/16 01:30 Dose: Not Given Gabapentin (Neurontin) 300 mg PO ONETIME ONE Stop: 10/12/16 23:46 Last Admin: 10/13/16 01:25 Dose: 300 mg Heparin Sodium (Porcine) (Heparin Lock Flush 100 Units/Ml Syringe) Confirm Administered Dose 500 units .ROUTE .STK-MED ONE Stop: 10/13/16 05:12 Last Admin: 10/14/16 13:45 Dose: 500 units Heparin Sodium (Porcine) (Heparin Lock Flush 100 Units/Ml Syringe) Confirm Administered Dose 500 units .ROUTE .STK-MED ONE Stop: 10/14/16 09:55 Last Admin: 10/14/16 13:37 Dose: 500 units Heparin Sodium (Porcine) (Heparin Lock Flush 100 Units/Ml Syringe) Confirm Administered Dose 500 units .ROUTE .STK-MED ONE Stop: 10/14/16 13:43 Last Admin: 10/14/16 18:54 Dose: 500 units Heparin Sodium (Porcine) (Heparin Lock Flush 100 Units/Ml Syringe) Confirm Administered Dose 500 units .ROUTE .STK-MED ONE Stop: 10/15/16 04:44 Last Admin: 10/15/16 05:05 Dose: Not Given Ceftriaxone Sodium 2 gm/ (Sodium Chloride) 50 mls @ 100 mls/hr IV Q24H [facility] Last Admin: 10/13/16 12:21 Dose: 100 mls/hr Insulin Aspart (Novolog) 17 unit SUBCUT ONETIME ONE Stop: 10/13/16 21:26 Last Admin: 10/13/16 21:38 Dose: 17 units Lorazepam (Ativan) 1 mg IVPUSH ONETIME ONE Stop: 10/12/16 19:56 Last Admin: 10/12/16 20:10 Dose: 1 mg Lorazepam (Ativan) 1 mg IV Q6H PRN PRN Reason: Nausea/Vomiting Lorazepam (Ativan) 0.5 mg PO BID PRN PRN Reason: Anxiety Last Admin: 10/13/16 10:07 Dose: 0.5 mg Metformin HCl (Glucophage) 850 mg PO ONETIME ONE Stop: 10/12/16 23:46 Last Admin: 10/13/16 01:28 Dose: 850 mg Metformin HCl (Glucophage) 850 mg PO BIDMEALS [facility] Last Admin: 10/13/16 08:03 Dose: 850 mg Methylprednisolone Sodium Succinate (Solu-Medrol) 125 mg IVPUSH ONETIME ONE Stop: 10/12/16 19:59 Last Admin: 10/12/16 20:08 Dose: 125 mg Methylprednisolone Sodium Succinate (Solu-Medrol) 125 mg IVPUSH Q8H [facility] Last Admin: 10/13/16 03:33 Dose: 125 mg Methylprednisolone Sodium Succinate (Solu-Medrol) 40 mg IVPUSH Q8H [facility] Last Admin: 10/14/16 04:07 Dose: 40 mg Metoprolol Succinate (Toprol Xl) 25 mg PO ONETIME ONE Stop: 10/12/16 23:46 Last Admin: 10/13/16 01:15 Dose: 25 mg Mometasone Furoate/Formoterol Fumar (Dulera 200-5 Mcg) 2 puff IH BID [facility] Last Admin: 10/13/16 01:05 Dose: 2 puff Morphine Sulfate (Morphine) 2 mg IVPUSH ONETIME ONE Stop: 10/12/16 19:58 Last Admin: 10/12/16 20:10 Dose: 2 mg Morphine Sulfate (Morphine) 15 mg PO Q4H PRN PRN Reason: Pain Last Admin: 10/13/16 01:27 Dose: 15 mg Oxycodone HCl (Oxycodone) 5 mg PO Q4H PRN PRN Reason: Pain (moderate 4-6) Potassium Chloride (Klor-Con M20) 40 meq PO ONETIME ONE Stop: 10/15/16 09:13 Last Admin: 10/15/16 09:27 Dose: 40 meq Simvastatin (Zocor) 10 mg PO ONETIME ONE Stop: 10/12/16 23:46 Last Admin: 10/13/16 01:20 Dose: 10 mg *Q Meaningful Use (DIS) - VTE *Q VTE Criteria *Q: - Stroke *Q Stroke Criteria *Q: - AMI *Q AMI Criteria *Q:
== END 2016-10-16 13:46 | disposition home or self-care (01) | DRG 194 ==
LOC: JP.ED 17:48 → JP.MS 21:42
PROVIDERS: ADMIT Internal Medicine; ATTEND Hospitalist
DX: I11.0 Hypertensive heart disease with heart failure (principal); I50.33 Acute on chronic diastolic (congestive) heart failure; J44.1 Chronic obstructive pulmonary disease with (acute) exacerbation; E11.9 Type 2 diabetes mellitus without complications; Z79.4 Long term (current) use of insulin; N39.0 Urinary tract infection, site not specified; B96.1 Klebsiella pneumoniae [K. pneumoniae] as the cause of diseases classified elsewhere; E66.01 Morbid (severe) obesity due to excess calories; Z68.42 Body mass index [BMI] 45.0-49.9, adult; E87.2 Acidosis; Z87.891 Personal history of nicotine dependence; E53.8 Deficiency of other specified B group vitamins; F32.9 Major depressive disorder, single episode, unspecified; M05.10 Rheumatoid lung disease with rheumatoid arthritis of unspecified site; M54.9 Dorsalgia, unspecified; G89.29 Other chronic pain; K21.9 Gastro-esophageal reflux disease without esophagitis; Z99.81 Dependence on supplemental oxygen; Z87.01 Personal history of pneumonia (recurrent); H54.7 Unspecified visual loss; Z96.659 Presence of unspecified artificial knee joint; Z88.1 Allergy status to other antibiotic agents; Z79.82 Long term (current) use of aspirin; Z79.52 Long term (current) use of systemic steroids
CPT/HCPCS: 36415; 36600; 51702; 71020; 71020-26; 80048; 81001; 82150; 82803; 82962; 83605; 83690; 85025; 85027; 87086; 87088; 87186; 94640; 94640-76; 96374; 96375; 97162-GP; 99284-25; A9270-GY; J0696; J1642; J1650; J2060; J2270; J2920; J2930; J7050; J7500; J7620; S0171

== ENCOUNTER 2016-10-28 15:19 | Inpatient (IN) | payer BC, MEDICAID ==
[2016-10-28] MEDS ORDERED: Furosemide 40 MG/4 ML VIAL IVPUSH ONE (16:10)
--- NOTE | 2016-10-28 17:06 | EDM.PDOC ---
ED HPI GENERAL MEDICAL PROBLEM - General Chief Complaint: Respiratory Problem Stated Complaint: SOB Time Seen by Provider: 10/28/16 15:55 Source of Information: Reports: Patient History Limitations: Reports: No Limitations - History of Present Illness INITIAL COMMENTS - FREE TEXT/NARRATIVE: History of present illness: [60-year-old female presenting with increased shortness of breath over the last week or so. She's out of 10, weight gain in the last week. History of congestive heart failure in frequent admissions for same. She has some chest heaviness but she states that when the fluid was taken off the heaviness is relieved. She denies ever having a heart attack. No fevers or chills or cough. She's noted increased edema in her lower extremities.] Review of systems: As per history of present illness and below otherwise all systems reviewed and negative. Past medical history: As per history of present illness and as reviewed below otherwise noncontributory. Surgical history: As per history of present illness and as reviewed below otherwise noncontributory. Social history: No reported history of drug or alcohol abuse. Family history: As per history of present illness and as reviewed below otherwise noncontributory. Physical exam: HEENT: Atraumatic, normocephalic, pupils reactive, negative for conjunctival pallor or scleral icterus, mucous membranes moist, throat clear, neck supple, nontender, trachea midline. Lungs: She has crackles and diminished breath sounds in the bases. Heart: S1S2, regular, Abdomen: Soft, nondistended, nontender. Pelvis: Stable nontender. Genitourinary: Deferred. Rectal: Deferred. Extremities: Atraumatic, negative for cords or calf pain. Neurovascular unremarkable. Neuro: Awake, alert, oriented. Cranial nerves II through XII unremarkable. Cerebellum unremarkable. Motor and sensory unremarkable throughout. Exam nonfocal. Diagnostics: [She's had a CBC complete metabolic panel and BNP and a troponin the troponin is negative BNP is elevated some chest x-ray is showing mild vascular redistribution EKG shows a sinus rhythm with a rate of 90 with a prolonged NH interval no evidence of ischemia or injury.] Therapeutics: [She's received 80 mg of Lasix IV] Impression: [Exacerbation of chronic congestive heart failure] Plan: [I spoke with Dr. Hemphill and more than likely we will be admitting her.] Definitive disposition and diagnosis as appropriate pending reevaluation and review of above. Headache Pain Score (Numeric/FACES): 8 - Related Data Allergies Allergy/AdvReac Type Severity Reaction Status Date / Time cephalexin monohydrate Allergy Unknown flusing Verified 10/28/16 15:44 [From Keflex] levofloxacin [Levofloxacin] Allergy Rash Verified 10/28/16 15:44 amoxicillin [Amoxicillin] AdvReac Vomiting Verified 10/28/16 15:44 amoxicillin trihydrate AdvReac Vomiting Verified 10/28/16 15:44 [From Augmentin] erythromycin base AdvReac Nausea and Verified 10/28/16 15:44 [Erythromycin Base] Vomiting potassium clavulanate AdvReac Vomiting Verified 10/28/16 15:44 [From Augmentin] Home Meds: Home Meds Albuterol [Ventolin HFA] 2 puff INH ASDIRECTED PRN 03/01/13 [History] Escitalopram [Lexapro] 30 mg PO BEDTIME 03/01/13 [History] Ipratropium/Albuterol Sulfate [Duoneb 0.5 MG-3 MG/3 ML] 3 ml INH QID 03/01/13 [ History] Metoprolol Succinate [Toprol XL] 25 mg PO BEDTIME 03/01/13 [History] Verapamil HCl [Verelan] 180 mg PO BIDAC 03/01/13 [History] Aspirin 81 mg PO DAILY 08/30/13 [History] Simvastatin [Zocor] 10 mg PO BEDTIME 08/30/13 [History] Magnesium Oxide 400 mg PO BID 09/01/13 [History] Lactobacillus Acidophilus [Probiotic] 1 cap PO BID 04/05/14 [History] Cyclobenzaprine [Flexeril] 10 mg PO TID PRN 09/27/14 [History] Folic Acid 1 mg PO DAILY 09/27/14 [History] metFORMIN [Glucophage] 850 mg PO BID 09/27/14 [History] Gabapentin [Neurontin] 300 mg PO BID 03/28/15 [History] Lisinopril 20 mg PO DAILY 03/28/15 [History] Oxybutynin [Oxybutynin ER] 10 mg PO DAILY 03/28/15 [History] Promethazine [Phenergan] 25 mg PO Q8H PRN 03/28/15 [History] traZODone 50 mg PO BEDTIME 03/28/15 [History] Potassium Chloride [Klor-Con M20] 20 meq PO BID #60 tab.er 07/29/15 [Rx] Cyanocobalamin (Vitamin B12) [Vitamin B12] 1,000 mcg IM Q30D 09/26/15 [History] Ergocalciferol (Vitamin D2) [Vitamin D2] 50,000 unit PO WEEKLY 09/26/15 [History ] Ferrous Sulfate 325 mg PO DAILY 09/26/15 [History] Fluticasone/Salmeterol [Advair Diskus 500-50] 1 puff INH BID 12/05/15 [History] azaTHIOprine [Azathioprine] 150 mg PO DAILY 12/05/15 [History] Isosorbide Mononitrate [Isosorbide Mononitrate ER] 30 mg PO DAILY 04/12/16 [ History] Morphine Sulfate 15 mg PO Q4H PRN 04/12/16 [History] Sucralfate [Carafate] 1 gm PO QIDACANDBED 05/10/16 [History] Bumetanide [Bumex] 2 mg PO BID #60 tablet 05/17/16 [Rx] Insulin Aspart [NovoLOG] 10 unit SUBCUT TIDMEALS 06/05/16 [History] Pantoprazole [ProTONIX] 40 mg PO DAILY 07/13/16 [History] Clotrimazole [Mycelex] 10 mg PO DAILY 07/29/16 [History] Insulin Detemir [Levemir Flextouch] 30 units SQ BID #300 ml 08/28/16 [Rx] LORazepam [Ativan] 0.5 mg PO BID PRN #30 tablet 08/28/16 [Rx] Prednisone [IJD: predniSONE] 20 mg PO DAILY 10/28/16 [History] Past Medical History HEENT History: Reports: Impaired Vision Cardiovascular History: Reports: Hypertension, SOB on Exertion, Other (See Below ) Other Cardiovascular History: diastolic congestive heart failure Respiratory History: Reports: Asthma, Bronchitis, Recurrent, COPD, Pneumonia, Recurrent, SOB, Other (See Below) Other Respiratory History: Home O2 and nebs Gastrointestinal History: Reports: Cholelithiasis, GERD, Other (See Below) Other Gastrointestinal History: history of bezoars Genitourinary History: Reports: Other (See Below) Other Genitourinary History: mass by bladder taken out non cancer 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: Reports: PID, Musculoskeletal History: Reports: Back Pain, Chronic, Osteoarthritis, RA Neurological History: Reports: Migraines Psychiatric History: Reports: Depression Endocrine/Metabolic History: Reports: Diabetes, Type II, Obesity/BMI 30+ Hematologic History: Reports: B12 Deficiency Immunologic History: Reports: Other (See Below) Other Immunologic History: on medication that affects immunity Oncologic (Cancer) History: Reports: None Dermatologic History: Reports: None - Infectious Disease History Infectious Disease History: Reports: Chicken Pox, Measles, Mumps - Past Surgical History HEENT Surgical History: Reports: Cataract Surgery, Tonsillectomy Female Surgical History: Reports: Hysterectomy, Tubal Ligation Musculoskeletal Surgical History: Reports: Knee Replacement Social & Family History - Family History HEENT: Reports: Cataract Cardiac: Reports: CAD Respiratory: Reports: Asthma : Reports: Other (See Below) Other Family History: mom kidney CA Musculoskeletal: Reports: Arthritis, RA Neurological: Reports: CVA, Seizure Endocrine/Metabolic: Reports: Diabetes, type II - Tobacco Use Smoking Status *Q: Former Smoker Years of Tobacco use: 15 Packs/Tins Daily: 1 Used Tobacco, but Quit: Yes Month Tobacco Last Used: 35 years Second Hand Smoke Exposure: No - Caffeine Use Caffeine Use: Reports: Soda Other Caffeine Use: 3 bottles a day - Alcohol Use Days Per Week of Alcohol Use: 0 - Recreational Drug Use Recreational Drug Use: No - Living Situation & Occupation Living situation: Reports: , with Spouse ED ROS GENERAL - Review of Systems Review Of Systems: ROS reveals no pertinent complaints other than HPI. ED EXAM, GENERAL - Physical Exam Exam: See Below Course - Vital Signs Last Recorded V/S: Last Vital Signs Temp 37.3 C 10/28/16 15:39 Pulse 93 10/28/16 15:39 Resp 22 H 10/28/16 15:39 BP 145/84 H 10/28/16 16:26 Pulse Ox 90 L 10/28/16 15:39 - Orders/Labs/Meds Orders: Active Orders 24 hr Category Date Time Status EKG Documentation Completion [RC] ASDIRECTED Care 10/28/16 16:09 Active Dougherty Catheter Insertion [Insert Urinary Catheter] [OM. Care 10/28/16 16:15 Ordered PC] Q24H Urinary Catheter Assessment [RC] ASDIRECTED Care 10/28/16 16:05 Active Chest 1V Frontal [CR] Stat Exams 10/28/16 16:11 Taken Heparin Sodium [Heparin Lock Flush 100 Units/ML Syringe Med 10/28/16 16:14 Active ] 500 units FLUSH ASDIRECTED PRN EKG 12 Lead [EK] Stat Ther 10/28/16 16:09 Ordered Medication Orders Heparin Sodium (Porcine) (Heparin Lock Flush 100 Units/Ml Syringe) 500 units FLUSH ASDIRECTED PRN PRN Reason: Keep Vein Open Last Admin: 10/28/16 16:34 Dose: 500 units Labs: Laboratory Tests 10/28/16 10/28/16 10/28/16 Range/Units 16:26 16:26 16:26 WBC 11.2 H (4.5-11.0) K/uL RBC 4.21 (3.30-5.50) M/uL Hgb 11.1 L (12.0-15.0) g/dL Hct 37.0 (36.0-48.0) % MCV 88 (80-98) fL MCH 26 L (27-31) pg MCHC 30 L (32-36) % Plt Count 254 (150-400) K/uL Neut % (Auto) 89 H (36-66) % Lymph % (Auto) 8 L (24-44) % Vermillion % (Auto) 3 (2-6) % Eos % (Auto) 0 L (2-4) % Baso % (Auto) 0 (0-1) % Sodium 141 (140-148) mmol/L Potassium 4.6 (3.6-5.2) mmol/L Chloride 104 (100-108) mmol/L Carbon Dioxide 30 (21-32) mmol/L Anion Gap 6.6 (5.0-14.0) mmol/L BUN 18 (7-18) mg/dL Creatinine 1.0 (0.6-1.0) mg/dL Est Cr Clr Drug Dosing 126.98 mL/min Estimated GFR (MDRD) 56 L (>60) Glucose 301 H (74-106) mg/dL Calcium 8.2 L (8.5-10.1) mg/dL Total Bilirubin 0.2 (0.2-1.0) mg/dL AST 11 L (15-37) U/L ALT 21 (12-78) U/L Alkaline Phosphatase 95 (46-116) U/L Troponin I (0.000-0.056) ng/mL Oub-P-[id number] Pept 373 H (5-125) pg/mL Total Protein 6.1 L (6.4-8.2) g/dL Albumin 3.1 L (3.4-5.0) g/dL Globulin 3.0 (2.3-3.5) g/dL Albumin/Globulin Ratio 1.0 L (1.2-2.2) 10/28/16 Range/Units 16:26 WBC (4.5-11.0) K/uL RBC (3.30-5.50) M/uL Hgb (12.0-15.0) g/dL Hct (36.0-48.0) % MCV (80-98) fL MCH (27-31) pg MCHC (32-36) % Plt Count (150-400) K/uL Neut % (Auto) (36-66) % Lymph % (Auto) (24-44) % Vermillion % (Auto) (2-6) % Eos % (Auto) (2-4) % Baso % (Auto) (0-1) % Sodium (140-148) mmol/L Potassium (3.6-5.2) mmol/L Chloride (100-108) mmol/L Carbon Dioxide (21-32) mmol/L Anion Gap (5.0-14.0) mmol/L BUN (7-18) mg/dL Creatinine (0.6-1.0) mg/dL Est Cr Clr Drug Dosing mL/min Estimated GFR (MDRD) (>60) Glucose (74-106) mg/dL Calcium (8.5-10.1) mg/dL Total Bilirubin (0.2-1.0) mg/dL AST (15-37) U/L ALT (12-78) U/L Alkaline Phosphatase (46-116) U/L Troponin I < 0.017 (0.000-0.056) ng/mL [id number] Pept (5-125) pg/mL Total Protein (6.4-8.2) g/dL Albumin (3.4-5.0) g/dL Globulin (2.3-3.5) g/dL Albumin/Globulin Ratio (1.2-2.2) Meds: Medications Generic Name Dose Route Start Last Admin Trade Name Leon PRN Reason Stop Dose Admin Heparin Sodium (Porcine) 500 units 10/28/16 16:14 10/28/16 16:34 Heparin Lock Flush 100 Units/Ml Syringe FLUSH 500 units ASDIRECTED PRN Administration Keep Vein Open Discontinued Medications Generic Name Dose Route Start Last Admin Trade Name Leon PRN Reason Stop Dose Admin Furosemide 80 mg 10/28/16 16:10 10/28/16 16:26 Lasix IVPUSH 10/28/16 16:11 80 mg ONETIME ONE Administration Departure - Departure Time of Disposition: 17:05 Disposition: Admitted As Inpatient 64 Condition: fair Clinical Impression: Acute exacerbation of congestive heart failure Qualifiers: Congestive heart failure type: unspecified congestive heart failure type Qualified Code(s): I50.9 - Heart failure, unspecified - Discharge Information Forms: ED Department Discharge - My Orders Last 24 Hours: My Active Orders 10/28/16 16:05 Urinary Catheter Assessment [RC] ASDIRECTED 10/28/16 16:09 EKG Documentation Completion [RC] ASDIRECTED EKG 12 Lead [EK] Stat 10/28/16 16:11 Chest 1V Frontal [CR] Stat 10/28/16 16:14 Heparin Sodium [Heparin Lock Flush 100 Units/ML Syringe] 500 units FLUSH ASDIRECTED PRN 10/28/16 16:15 Dougherty Catheter Insertion [Insert Urinary Catheter] [OM.PC] Q24H - Assessment/Plan Last 24 Hours: My Active Orders 10/28/16 16:05 Urinary Catheter Assessment [RC] ASDIRECTED 10/28/16 16:09 EKG Documentation Completion [RC] ASDIRECTED EKG 12 Lead [EK] Stat 10/28/16 16:11 Chest 1V Frontal [CR] Stat 10/28/16 16:14 Heparin Sodium [Heparin Lock Flush 100 Units/ML Syringe] 500 units FLUSH ASDIRECTED PRN 10/28/16 16:15 Dougherty Catheter Insertion [Insert Urinary Catheter] [OM.PC] Q24H
[2016-10-28] MEDS ORDERED: Acetaminophen 500 MG Tab PO ONE (17:17)
--- NOTE | 2016-10-28 18:26 | PCM.HP ---
H&P History of Present Illness - General Date of Service: 10/28/16 Admit Problem/Dx: Admission Diagnosis/Problem Admission Diagnosis/Problem Congestive heart failure Source of Information: Patient, Old Records, Provider, RN Notes Reviewed History Limitations: Reports: No Limitations - History of Present Illness Initial Comments - Free Text/Narative: Dipti is a 60-year-old woman admitted through the emergency department with increased shortness of breath and peripheral edema secondary to congestive heart failure with preserved left ventricular function. She has had recurrent episodes of fluid retention causing respiratory compromise over the past several months. Echocardiogram has shown good left ventricular function. She also has underlying pulmonary disease secondary to her rheumatoid arthritis. At the present time she is on continuous oxygen at home for management of her hypoxia related to respiratory disease. She was hospitalized here approximately 2 weeks ago and had very good diuresis at that time. When she left the hospital had no significant peripheral edema or pulmonary edema. Over the past 2 weeks is slowly regaining weight and is up approximately 10-11 pounds. Associated with this weight gain has been increase in shortness of breath. Headache Pain Score (Numeric/FACES): 8 - Related Data Allergies/Adverse Reactions: Allergies Allergy/AdvReac Type Severity Reaction Status Date / Time cephalexin monohydrate Allergy Unknown flusing Verified 10/28/16 15:44 [From Keflex] levofloxacin [Levofloxacin] Allergy Rash Verified 10/28/16 15:44 amoxicillin [Amoxicillin] AdvReac Vomiting Verified 10/28/16 15:44 amoxicillin trihydrate AdvReac Vomiting Verified 10/28/16 15:44 [From Augmentin] erythromycin base AdvReac Nausea and Verified 10/28/16 15:44 [Erythromycin Base] Vomiting potassium clavulanate AdvReac Vomiting Verified 10/28/16 15:44 [From Augmentin] Home Medications: Home Meds Albuterol [Ventolin HFA] 2 puff INH ASDIRECTED PRN 03/01/13 [History] Escitalopram [Lexapro] 30 mg PO BEDTIME 03/01/13 [History] Ipratropium/Albuterol Sulfate [Duoneb 0.5 MG-3 MG/3 ML] 3 ml INH QID 03/01/13 [ History] Metoprolol Succinate [Toprol XL] 25 mg PO BEDTIME 03/01/13 [History] Verapamil HCl [Verelan] 180 mg PO BIDAC 03/01/13 [History] Aspirin 81 mg PO DAILY 08/30/13 [History] Simvastatin [Zocor] 10 mg PO BEDTIME 08/30/13 [History] Magnesium Oxide 400 mg PO BID 09/01/13 [History] Lactobacillus Acidophilus [Probiotic] 1 cap PO BID 04/05/14 [History] Cyclobenzaprine [Flexeril] 10 mg PO TID PRN 09/27/14 [History] Folic Acid 1 mg PO DAILY 09/27/14 [History] metFORMIN [Glucophage] 850 mg PO BID 09/27/14 [History] Gabapentin [Neurontin] 300 mg PO BID 03/28/15 [History] Lisinopril 20 mg PO DAILY 03/28/15 [History] Oxybutynin [Oxybutynin ER] 10 mg PO DAILY 03/28/15 [History] Promethazine [Phenergan] 25 mg PO Q8H PRN 03/28/15 [History] traZODone 50 mg PO BEDTIME 03/28/15 [History] Potassium Chloride [Klor-Con M20] 20 meq PO BID #60 tab.er 07/29/15 [Rx] Cyanocobalamin (Vitamin B12) [Vitamin B12] 1,000 mcg IM Q30D 09/26/15 [History] Ergocalciferol (Vitamin D2) [Vitamin D2] 50,000 unit PO WEEKLY 09/26/15 [History ] Ferrous Sulfate 325 mg PO DAILY 09/26/15 [History] Fluticasone/Salmeterol [Advair Diskus 500-50] 1 puff INH BID 12/05/15 [History] azaTHIOprine [Azathioprine] 150 mg PO DAILY 12/05/15 [History] Isosorbide Mononitrate [Isosorbide Mononitrate ER] 30 mg PO DAILY 04/12/16 [ History] Morphine Sulfate 15 mg PO Q4H PRN 04/12/16 [History] Sucralfate [Carafate] 1 gm PO QIDACANDBED 05/10/16 [History] Bumetanide [Bumex] 2 mg PO BID #60 tablet 05/17/16 [Rx] Insulin Aspart [NovoLOG] 10 unit SUBCUT TIDMEALS 06/05/16 [History] Pantoprazole [ProTONIX] 40 mg PO DAILY 07/13/16 [History] Clotrimazole [Mycelex] 10 mg PO DAILY 07/29/16 [History] Insulin Detemir [Levemir Flextouch] 30 units SQ BID #300 ml 08/28/16 [Rx] LORazepam [Ativan] 0.5 mg PO BID PRN #30 tablet 08/28/16 [Rx] Prednisone [IJD: predniSONE] 20 mg PO DAILY 10/28/16 [History] Past Medical History HEENT History: Reports: Impaired Vision Cardiovascular History: Reports: Hypertension, SOB on Exertion, Other (See Below ) Other Cardiovascular History: diastolic congestive heart failure Respiratory History: Reports: Asthma, Bronchitis, Recurrent, COPD, Pneumonia, Recurrent, SOB, Other (See Below) Other Respiratory History: Home O2 and nebs Gastrointestinal History: Reports: Cholelithiasis, GERD, Other (See Below) Other Gastrointestinal History: history of bezoars Genitourinary History: Reports: Other (See Below) Other Genitourinary History: mass by bladder taken out non cancer [employer] History: Reports: PID, Musculoskeletal History: Reports: Back Pain, Chronic, Osteoarthritis, RA Neurological History: Reports: Migraines Psychiatric History: Reports: Depression Endocrine/Metabolic History: Reports: Diabetes, Type II, Obesity/BMI 30+ Hematologic History: Reports: B12 Deficiency Immunologic History: Reports: Other (See Below) Other Immunologic History: on medication that affects immunity Oncologic (Cancer) History: Reports: None Dermatologic History: Reports: None - Infectious Disease History Infectious Disease History: Reports: Chicken Pox, Measles, Mumps - Past Surgical History HEENT Surgical History: Reports: Cataract Surgery, Tonsillectomy Female Surgical History: Reports: Hysterectomy, Tubal Ligation Musculoskeletal Surgical History: Reports: Knee Replacement Social & Family History - Family History HEENT: Reports: Cataract Cardiac: Reports: CAD Respiratory: Reports: Asthma : Reports: Other (See Below) Other Family History: mom kidney CA Musculoskeletal: Reports: Arthritis, RA Neurological: Reports: CVA, Seizure Endocrine/Metabolic: Reports: Diabetes, type II - Tobacco Use Smoking Status *Q: Former Smoker Years of Tobacco use: 15 Packs/Tins Daily: 1 Used Tobacco, but Quit: Yes Month Tobacco Last Used: 35 years Second Hand Smoke Exposure: No - Caffeine Use Caffeine Use: Reports: Soda Other Caffeine Use: 3 bottles a day - Alcohol Use Days Per Week of Alcohol Use: 0 - Recreational Drug Use Recreational Drug Use: No - Living Situation & Occupation Living situation: Reports: , with Spouse H&P Review of Systems - Review of Systems: Review Of Systems: See Below General: Denies: Fever, Chills, Weakness HEENT: Reports: No Symptoms Pulmonary: Reports: Shortness of Breath. Denies: Wheezing, Pleuritic Chest Pain , Cough, Sputum, Hemoptysis Cardiovascular: Reports: Dyspnea on Exertion, Edema. Denies: Chest Pain, Palpitations, Orthopnea, PND, Lightheadedness, Syncope Gastrointestinal: Reports: No Symptoms Genitourinary: Reports: No Symptoms Musculoskeletal: Reports: No Symptoms Skin: Reports: No Symptoms Psychiatric: Reports: No Symptoms Neurological: Reports: No Symptoms Hematologic/Lymphatic: Reports: No Symptoms Immunologic: Reports: No Symptoms Exam - Exam Exam: See Below - Vital Signs Vital Signs: Last Vital Signs Temp 99.1 F 10/28/16 15:39 Pulse 90 10/28/16 18:11 Resp 19 10/28/16 18:11 BP 126/64 10/28/16 18:11 Pulse Ox 92 L 10/28/16 18:11 Weight: 304 lb - Exam Quality Assessment: Supplemental Oxygen, Urinary Catheter, DVT Prophylaxis General: Alert, Oriented, Cooperative, Mild Distress HEENT: Conjunctiva Clear, EOMI, Hearing Intact, Mucosa Moist & [place], Normal Nasal Septum, Posterior Pharynx Clear, Pupils Equal, Pupils Reactive Neck: Supple, Trachea Midline, +2 Carotid Pulse wo Bruit Lungs: Normal Respiratory Effort, Decreased Breath Sounds, Rales. No: Crackles , Rhonchi, Rub, Stridor, Wheezing Cardiovascular: Regular Rate, Regular Rhythm, Normal S1, Normal S2. No: Irregular Rhythm, Bradycardia, Tachycardia, Systolic Murmur, Diastolic Murmur Abdomen: Normal Bowel Sounds, Soft Back Exam: Normal Inspection, Full Range of Motion, NT Extremities: Edema Skin: Warm, Dry, Intact Neurological: Cranial Nerves Intact, Strength Equal Bilateral, Normal Speech, Normal Tone, Sensation Intact. No: Focal Deficit Neuro Extensive - Mental Status: Alert, Oriented x3, Normal Mood/Affect, Normal Cognition, Memory Intact - Patient Data Lab Results last 24 hrs: Laboratory Results - last 24 hr 10/28/16 10/28/16 10/28/16 Range/Units 16:26 16:26 16:26 WBC 11.2 H (4.5-11.0) K/uL RBC 4.21 (3.30-5.50) M/uL Hgb 11.1 L (12.0-15.0) g/dL Hct 37.0 (36.0-48.0) % MCV 88 (80-98) fL MCH 26 L (27-31) pg MCHC 30 L (32-36) % Plt Count 254 (150-400) K/uL Neut % (Auto) 89 H (36-66) % Lymph % (Auto) 8 L (24-44) % [place] % (Auto) 3 (2-6) % Eos % (Auto) 0 L (2-4) % Baso % (Auto) 0 (0-1) % Sodium 141 (140-148) mmol/L Potassium 4.6 (3.6-5.2) mmol/L Chloride 104 (100-108) mmol/L Carbon Dioxide 30 (21-32) mmol/L Anion Gap 6.6 (5.0-14.0) mmol/L BUN 18 (7-18) mg/dL Creatinine 1.0 (0.6-1.0) mg/dL Est Cr Clr Drug Dosing 126.98 mL/min Estimated GFR (MDRD) 56 L (>60) Glucose 301 H (74-106) mg/dL Calcium 8.2 L (8.5-10.1) mg/dL Total Bilirubin 0.2 (0.2-1.0) mg/dL AST 11 L (15-37) U/L ALT 21 (12-78) U/L Alkaline Phosphatase 95 (46-116) U/L Troponin I (0.000-0.056) ng/mL [id number] Pept 373 H (5-125) pg/mL Total Protein 6.1 L (6.4-8.2) g/dL Albumin 3.1 L (3.4-5.0) g/dL Globulin 3.0 (2.3-3.5) g/dL Albumin/Globulin Ratio 1.0 L (1.2-2.2) 10/28/16 Range/Units 16:26 WBC (4.5-11.0) K/uL RBC (3.30-5.50) M/uL Hgb (12.0-15.0) g/dL Hct (36.0-48.0) % MCV (80-98) fL MCH (27-31) pg MCHC (32-36) % Plt Count (150-400) K/uL Neut % (Auto) (36-66) % Lymph % (Auto) (24-44) % [place] % (Auto) (2-6) % Eos % (Auto) (2-4) % Baso % (Auto) (0-1) % Sodium (140-148) mmol/L Potassium (3.6-5.2) mmol/L Chloride (100-108) mmol/L Carbon Dioxide (21-32) mmol/L Anion Gap (5.0-14.0) mmol/L BUN (7-18) mg/dL Creatinine (0.6-1.0) mg/dL Est Cr Clr Drug Dosing mL/min Estimated GFR (MDRD) (>60) Glucose (74-106) mg/dL Calcium (8.5-10.1) mg/dL Total Bilirubin (0.2-1.0) mg/dL AST (15-37) U/L ALT (12-78) U/L Alkaline Phosphatase (46-116) U/L Troponin I < 0.017 (0.000-0.056) ng/mL [id number] Pept (5-125) pg/mL Total Protein (6.4-8.2) g/dL Albumin (3.4-5.0) g/dL Globulin (2.3-3.5) g/dL Albumin/Globulin Ratio (1.2-2.2) Result Diagrams: 10/28/16 16:26 10/28/16 16:26 *Q Meaningful Use (ADM) - VTE *Q VTE Criteria *Q: - VTE Risk Assess *Q Each Risk Factor Represents 1 Point: Congestive Heart Failure, Less than 1 Month , Abnormal Pulmonary Function (COPD) Total Score 1 Point Risk Factors: 2 Each Risk Factor Represents 2 Points: None, Age 60 - 74 Years Total Score 2 Point Risk Factors: 2 Each Risk Factor Represents 3 Points: BMI Greater than 50 (Venous Stasis Syndrome) Total Score 3 Point Risk Factors: 3 Each Risk Factor Represents 5 Points: None Total Score 5 Point Risk Factors: 0 Venous Thromboembolism Risk Factor Score *Q: 7 - Stroke *Q Stroke Criteria *Q: - AMI *Q AMI Criteria *Q: Problem List Initiated/Reviewed/Updated: Yes Orders Last 24hrs: Active Orders 24 hr Category Date Time Status EKG Documentation Completion [RC] ASDIRECTED Care 10/28/16 16:09 Active Dougherty Catheter Insertion [Insert Urinary Catheter] [OM. Care 10/28/16 16:15 Ordered PC] Q24H Urinary Catheter Assessment [RC] ASDIRECTED Care 10/28/16 16:05 Active Chest 1V Frontal [CR] Stat Exams 10/28/16 16:11 Taken Heparin Sodium [Heparin Lock Flush 100 Units/ML Syringe Med 10/28/16 16:14 Active ] 500 units FLUSH ASDIRECTED PRN Resuscitation Status Routine Resus Stat 10/28/16 18:12 Ordered EKG 12 Lead [EK] Stat Ther 10/28/16 16:09 Ordered Medication Orders Heparin Sodium (Porcine) (Heparin Lock Flush 100 Units/Ml Syringe) 500 units FLUSH ASDIRECTED PRN PRN Reason: Keep Vein Open Last Admin: 10/28/16 16:34 Dose: 500 units Assessment/Plan Comment:: ASSESSMENT AND PLAN CONGESTIVE HEART FAILURE WITH PRESERVED LEFT VENTRICULAR FUNCTION - Recent decompensation with more than an 11 pound weight gain. Patient reports oral diuretics were not adequate at home. -Bumetanide 4 mg twice daily today and in the morning and then reassess -Daily weights -Strict 2 g sodium diet -Accurate I.'s and O.'s -Recheck electrolytes and renal function in a.m. -Supplemental oxygen -Continue home medications COPD -seems to be well compensated at this time with no evidence of acute exacerbation or underlying infection -Continue home medical regimen DIABTETS TYPE 2 -Levemir 36 units subcut bid -Novolog 10 units with meals -Sliding scale coverage; moderate dose -Continue metformin 850 mg by mouth twice a day CHRONIC PAIN - stable -Continue outpatient medical therapy MAINTENANCE ISSUES -Nutrition: diabetic diet -Dougherty catheter placed for strict I and 0 -DVT: scd -GI; Protonix 40mg daily DISPOSITION; home with PRIMARY CARE PROVIDER-Dr. Gonsalez
[2016-10-28] MEDS ORDERED: 50% Dextrose in Water 50 ML Syringe IV PRN (19:38)
[2016-10-28] MEDS ORDERED: Polyethylene Glycol 3350 Powder 17 GM Packet PO PRN (19:38)
[2016-10-28] MEDS ORDERED: Glucose Gel 15 GM in 37.5 GM Tube PO PRN (19:38)
[2016-10-28] MEDS ORDERED: Albuterol 0.083% 2.5 MG/3 ML Neb Soln NEB PRN (19:38)
[2016-10-28] MEDS ORDERED: Promethazine 25 MG Tab PO PRN (19:38)
[2016-10-28] MEDS ORDERED: Cyclobenzaprine 10 MG Tab PO PRN (19:38)
[2016-10-28] MEDS ORDERED: Escitalopram 10 MG Tab ONE (20:26)
[2016-10-28] MEDS: Morphine 15 MG Tab PO PRN (20:26)
[2016-10-28] MEDS: traZODone 50 MG Tab PO SCH (20:27)
[2016-10-28] MEDS: Acetaminophen 325 MG Tab PO PRN (20:27)
[2016-10-28] MEDS: Gabapentin 300 MG Cap PO SCH (20:27)
[2016-10-28] MEDS: Magnesium Oxide 400 MG Tab PO SCH (20:28)
[2016-10-28] MEDS: Metoprolol Succinate 25 MG Tab.ER PO SCH (20:34)
[2016-10-28] MEDS ORDERED: Formoterol/Mometasone 200-5 MCG 8.8 GM Inhaler IH SCH (21:00)
[2016-10-28] MEDS ORDERED: Escitalopram 20 MG Tab PO SCH (21:00)
[2016-10-28] MEDS: Simvastatin 20 MG Tab PO SCH (21:06)
[2016-10-28] MEDS: Lactobacillus Rhamnosus GG (Probiotic) Cap PO SCH (21:06)
[2016-10-28] MEDS: LORazepam 0.5 MG Tab PO PRN (21:08)
[2016-10-28] MEDS: Potassium Chloride 20 MEQ Tab.ER PO SCH (21:08)
[2016-10-28] MEDS: Enoxaparin 40 MG/0.4 ML Syringe SUBCUT SCH (21:09)
[2016-10-28] MEDS: Sucralfate 1 GM Tab PO SCH (21:09)
[2016-10-28] MEDS: Albuterol/Ipratropium 3.0-0.5 MG/3 ML Neb Soln INH SCH (21:11)
[2016-10-28] MEDS: Insulin Detemir 100 Units/ML 3 ML Pen SUBCUT SCH (21:12)
[2016-10-28] MEDS: Insulin Aspart 100 Units/ML 3 ML Pen SUBCUT SCH (21:15)
[2016-10-29] MEDS: Bumetanide 2.5 MG/10 ML MDV IVPUSH SCH ×2 (07:38→20:08)
[2016-10-29] MEDS: Albuterol/Ipratropium 3.0-0.5 MG/3 ML Neb Soln INH SCH ×5 (08:09→22:01)
[2016-10-29] MEDS: Formoterol/Mometasone 200-5 MCG 8.8 GM Inhaler IH SCH ×2 (08:09→22:00)
[2016-10-29] MEDS: Insulin Detemir 100 Units/ML 3 ML Pen SUBCUT SCH ×2 (08:28→21:51)
[2016-10-29] MEDS: Insulin Aspart 100 Units/ML 3 ML Pen SUBCUT SCH ×6 (08:44→21:52)
[2016-10-29] MEDS: Enoxaparin 40 MG/0.4 ML Syringe SUBCUT SCH (08:47)
[2016-10-29] MEDS: Aspirin 81 MG Tab.Chew PO SCH (08:51)
[2016-10-29] MEDS: Pantoprazole 40 MG Tab.CR PO SCH (08:51)
[2016-10-29] MEDS: Sucralfate 1 GM Tab PO SCH ×4 (08:52→20:14)
[2016-10-29] MEDS: Oxybutynin 5 MG Tab PO SCH ×2 (08:52→21:50)
[2016-10-29] MEDS: Gabapentin 300 MG Cap PO SCH ×2 (08:52→21:50)
[2016-10-29] MEDS: Ferrous Sulfate 325 MG Tab PO SCH (08:53)
[2016-10-29] MEDS: Lisinopril 20 MG Tab PO SCH (08:53)
[2016-10-29] MEDS: Isosorbide Mononitrate 30 MG Tab.ER PO SCH (08:54)
[2016-10-29] MEDS: Verapamil 180 MG Tab.ER PO SCH ×2 (08:55→15:56)
[2016-10-29] MEDS: Magnesium Oxide 400 MG Tab PO SCH ×2 (08:55→21:50)
[2016-10-29] MEDS: Lactobacillus Rhamnosus GG (Probiotic) Cap PO SCH ×2 (08:55→21:49)
[2016-10-29] MEDS: predniSONE 20 MG Tab PO SCH (08:56)
[2016-10-29] MEDS: Potassium Chloride 20 MEQ Tab.ER PO SCH ×2 (08:58→21:50)
--- NOTE | 2016-10-29 09:01 | CR ---
Mild cardiomegaly. Left subclavian catheter. No focal consolidation.
[2016-10-29] MEDS ORDERED: Potassium Chloride 20 MEQ Tab.ER PO ONE ×2 (09:30→17:45)
[2016-10-29] MEDS ORDERED: Albuterol/Ipratropium 3.0-0.5 MG/3 ML Neb Soln INH SCH (11:00)
[2016-10-29] MEDS: Ondansetron 4 MG/2 ML SDV IV PRN (14:44)
[2016-10-29] MEDS: LORazepam 0.5 MG Tab PO PRN (14:45)
--- NOTE | 2016-10-29 17:20 | PCM.PN ---
- General Info Date of Service: 10/29/16 Functional Status: Reports: pain controlled, tolerating diet - Review of Systems General: Reports: Weakness. Denies: Fever, Chills Pulmonary: Reports: shortness of breath, cough. Denies: sputum, hemoptysis, wheezing Cardiovascular: Reports: Dyspnea on Exertion, Edema. Denies: Chest Pain, Palpitations, Orthopnea, PND, Lightheadedness Gastrointestinal: Reports: No symptoms Systems Review Comment:: Dipti has felt modestly improved since admission, she's had a good diuresis thus far with current diuretic therapy. Vital signs have been stable and she has remained afebrile. - Patient Data Vitals - most recent: Last Vital Signs Temp 99.0 F 10/29/16 14:34 Pulse 95 10/29/16 14:34 Resp 20 10/29/16 14:34 BP 90/65 10/29/16 14:34 Pulse Ox 92 L 10/29/16 14:34 Weight - most recent: 294 lb 6.414 oz I&O - last 24 hours: Intake & Output 10/29/16 10/29/16 10/29/16 06:59 14:59 22:59 Intake Total 480 620 Output Total 750 2400 Balance -750 -1920 620 Lab Results last 24 hrs: Laboratory Results - last 24 hr 10/29/16 Range/Units 05:00 Sodium 144 (140-148) mmol/L Potassium 3.6 (3.6-5.2) mmol/L Chloride 104 (100-108) mmol/L Carbon Dioxide 38 H (21-32) mmol/L Anion Gap 5.6 (5.0-14.0) mmol/L BUN 15 (7-18) mg/dL Creatinine 0.7 (0.6-1.0) mg/dL Est Cr Clr Drug Dosing 78.01 mL/min Estimated GFR (MDRD) > 60 (>60) Glucose 115 H (74-106) mg/dL Calcium 8.2 L (8.5-10.1) mg/dL Magnesium 1.8 D (1.8-2.4) mg/dL Med Orders - Current: Current Medications Acetaminophen (Tylenol) 650 mg PO Q4H PRN PRN Reason: Pain (Mild 1-3)/fever Last Admin: 10/28/16 20:27 Dose: 650 mg Albuterol (Proventil Neb Soln) 2.5 mg NEB Q4H PRN PRN Reason: Shortness Of Breath/wheezing Albuterol/Ipratropium (Duoneb 3.0-0.5 Mg/3 Ml) 3 ml INH QIDRT [facility] Last Admin: 10/29/16 14:22 Dose: 3 ml Aspirin (Aspirin) 81 mg PO DAILY [facility] Last Admin: 10/29/16 08:51 Dose: 81 mg Azathioprine (Imuran) 150 mg PO DAILY [facility] Last Admin: 10/29/16 08:56 Dose: 150 mg Bumetanide (Bumex) 4 mg IVPUSH Q12H [facility] Last Admin: 10/29/16 07:38 Dose: 4 mg Cyclobenzaprine HCl (Flexeril) 10 mg PO TID PRN PRN Reason: Pain Dextrose (Glutose 15) 15 gm PO ONETIME PRN PRN Reason: Hypoglycemia Dextrose/Water (Dextrose 50% In Water) 50 ml IV ONETIME PRN PRN Reason: Hypoglycemia Docusate Sodium (Colace) 100 mg PO BID PRN PRN Reason: Constipation Enoxaparin Sodium (Lovenox) 40 mg SUBCUT DAILY [facility] Last Admin: 10/29/16 08:47 Dose: 40 mg Escitalopram Oxalate (Lexapro) 30 mg PO BEDTIME [facility] Ferrous Sulfate (Ferrous Sulfate) 325 mg PO DAILY [facility] Last Admin: 10/29/16 08:53 Dose: 325 mg Gabapentin (Neurontin) 300 mg PO BID [facility] Last Admin: 10/29/16 08:52 Dose: 300 mg Heparin Sodium (Porcine) (Heparin Lock Flush 100 Units/Ml Syringe) 500 units FLUSH ASDIRECTED PRN PRN Reason: Keep Vein Open Last Admin: 10/29/16 14:48 Dose: 500 units Insulin Aspart (Novolog) 10 unit SUBCUT TIDMEALS [facility] Last Admin: 10/29/16 11:24 Dose: 10 units Insulin Aspart (Novolog) 0 unit SUBCUT ASDIRECTED [facility] PRN Reason: Protocol Last Admin: 10/29/16 11:26 Dose: 2 unit Insulin Detemir (Levemir) 36 unit SUBCUT BID [facility] Last Admin: 10/29/16 08:28 Dose: 36 unit Isosorbide Mononitrate (Imdur) 30 mg PO DAILY [facility] Last Admin: 10/29/16 08:54 Dose: 30 mg Lactobacillus Rhamnosus (Culturelle) 1 cap PO BID [facility] Last Admin: 10/29/16 08:55 Dose: 1 cap Lisinopril (Prinivil) 20 mg PO DAILY [facility] Last Admin: 10/29/16 08:53 Dose: 20 mg Lorazepam (Ativan) 0.5 mg PO BID PRN PRN Reason: Anxiety Last Admin: 10/29/16 14:45 Dose: 0.5 mg Magnesium Hydroxide (Milk Of Magnesia) 30 ml PO Q12H PRN PRN Reason: Constipation Magnesium Oxide (Magnesium Oxide) 400 mg PO BID [facility] Last Admin: 10/29/16 08:55 Dose: 400 mg Metformin HCl (Glucophage) 850 mg PO BIDMEALS [facility] Last Admin: 10/29/16 08:55 Dose: 850 mg Metoprolol Succinate (Toprol Xl) 25 mg PO BEDTIME [facility] Last Admin: 10/28/16 20:34 Dose: 25 mg Mometasone Furoate/Formoterol Fumar (Dulera 200-5 Mcg) 0 puff IH BID [facility] Last Admin: 10/29/16 08:09 Dose: 2 puff Morphine Sulfate (Morphine) 15 mg PO Q4H PRN PRN Reason: Pain Last Admin: 10/28/16 20:26 Dose: 15 mg Ondansetron HCl (Zofran) 4 mg IV Q4H PRN PRN Reason: Nausea/Vomiting Last Admin: 10/29/16 14:44 Dose: 4 mg Oxybutynin Chloride (Oxybutynin) 5 mg PO BID [facility] Last Admin: 10/29/16 08:52 Dose: 5 mg Pantoprazole Sodium (Protonix) 40 mg PO DAILY@0730 [facility] Last Admin: 10/29/16 08:51 Dose: 40 mg Polyethylene Glycol (Miralax) 17 gm PO DAILY PRN PRN Reason: Constipation Potassium Chloride (Klor-Con M20) 20 meq PO BID [facility] Last Admin: 10/29/16 08:58 Dose: 20 meq Potassium Chloride (Klor-Con M20) 40 meq PO ONETIME ONE Stop: 10/29/16 17:15 Prednisone (Prednisone) 20 mg PO DAILY [facility] Last Admin: 10/29/16 08:56 Dose: 20 mg Promethazine HCl (Phenergan) 25 mg PO Q8H PRN PRN Reason: Nausea Simvastatin (Zocor) 10 mg PO BEDTIME [facility] Last Admin: 10/28/16 21:06 Dose: 10 mg Sodium Chloride (Saline Flush) 10 ml FLUSH ASDIRECTED PRN PRN Reason: Keep Vein Open Sucralfate (Carafate) 1 gm PO QIDACANDBED [facility] Last Admin: 10/29/16 10:27 Dose: Not Given Trazodone HCl (Trazodone) 50 mg PO BEDTIME [facility] Last Admin: 10/28/16 20:27 Dose: 50 mg Verapamil HCl (Calan Sr) 180 mg PO BIDAC [facility] Last Admin: 10/29/16 15:56 Dose: 180 mg Discontinued Medications Acetaminophen (Tylenol Extra Strength) 1,000 mg PO ONETIME ONE Stop: 10/28/16 17:18 Last Admin: 10/28/16 17:44 Dose: 1,000 mg Albuterol/Ipratropium (Duoneb 3.0-0.5 Mg/3 Ml) 3 ml INH QID [facility] Last Admin: 10/29/16 09:43 Dose: Not Given Escitalopram Oxalate (Lexapro) 30 mg PO BEDTIME [facility] Last Admin: 10/28/16 20:29 Dose: 30 mg Escitalopram Oxalate (Lexapro) Confirm Administered Dose 30 mg .ROUTE .STK-MED ONE Stop: 10/28/16 20:27 Last Admin: 10/28/16 21:09 Dose: Not Given Furosemide (Lasix) 80 mg IVPUSH ONETIME ONE Stop: 10/28/16 16:11 Last Admin: 10/28/16 16:26 Dose: 80 mg Heparin Sodium (Porcine) (Heparin Lock Flush 100 Units/Ml Syringe) 500 units FLUSH ASDIRECTED PRN PRN Reason: Keep Vein Open Last Admin: 10/28/16 16:34 Dose: 500 units Heparin Sodium (Porcine) (Heparin Lock Flush 100 Units/Ml Syringe) Confirm Administered Dose 500 units .ROUTE .STK-MED ONE Stop: 10/29/16 05:03 Last Admin: 10/29/16 07:40 Dose: 500 units Metformin HCl (Glucophage) 850 mg PO BID [facility] Last Admin: 10/28/16 20:34 Dose: 850 mg Mometasone Furoate/Formoterol Fumar (Dulera 200-5 Mcg) 2 puff IH BID [facility] Last Admin: 10/28/16 21:10 Dose: 2 puff Potassium Chloride (Klor-Con M20) 40 meq PO ONETIME ONE Stop: 10/29/16 09:31 Last Admin: 10/29/16 09:40 Dose: 40 meq - Exam Quality Assessment: supplemental oxygen, DVT prophylaxis General: alert, oriented, cooperative Lungs: Clear to auscultation, Normal respiratory effort Cardiovascular: Regular Rate, Regular Rhythm, No Murmurs Abdomen: bowel sounds present, soft, no tenderness, no distension Extremities: edema Skin: warm, dry, intact - Problem List Review Problem List Initiated/Reviewed/Updated: Yes - My Orders Last 24 Hours: My Active Orders 10/28/16 18:12 Resuscitation Status Routine 10/28/16 19:38 Ambulate [RC] QID Blood Glucose Check, Bedside [RC] QIDACANDBED Communication Order [RC] ASDIRECTED Diabetes Education [RC] Click to Edit Height and Weight [RC] 0500 Intake and Output [RC] QSHIFT Notify Provider Vital Signs [RC] ASDIRECTED Notify Provider [RC] PRN Oxygen Therapy [RC] PRN RT Aerosol Therapy [RC] ASDIRECTED Up With Assistance [RC] ASDIRECTED VTE/DVT Education [RC] Per Unit Routine Vital Signs [RC] Q4H PT Evaluation and Treatment [CONS] Routine Acetaminophen [Tylenol] 650 mg PO Q4H PRN Albuterol [Proventil Neb Soln] 2.5 mg NEB Q4H PRN Dextrose 50% in Water 50 ml IV ONETIME PRN Dextrose [Glutose 15] 15 gm PO ONETIME PRN Docusate Sodium [Colace] 100 mg PO BID PRN Enoxaparin [Lovenox] 40 mg SUBCUT DAILY Insulin Aspart [NovoLOG] See Protocol SUBCUT ASDIRECTED Magnesium Hydroxide [Milk of Magnesia] 30 ml PO Q12H PRN Ondansetron [Zofran] 4 mg IV Q4H PRN Polyethylene Glycol 3350 [MiraLAX] 17 gm PO DAILY PRN Sodium Chloride 0.9% [Saline Flush] 10 ml FLUSH ASDIRECTED PRN Saline Lock Insert [OM.PC] Routine 10/28/16 Dinner 2 Gram Sodium Diet [DIET] Consistent Carbohydrate Diet [DIET] 10/29/16 07:00 Bumetanide [Bumex] 4 mg IVPUSH Q12H 10/29/16 07:23 Mometasone/Formoterol [Dulera 200-5 MCG] 0 puff IH BID 10/29/16 07:24 Heparin Sodium [Heparin Lock Flush 100 Units/ML Syringe] 500 units FLUSH ASDIRECTED PRN 10/29/16 08:00 Albuterol/Ipratropium [DuoNeb 3.0-0.5 MG/3 ML] 3 ml INH QIDRT metFORMIN [Glucophage] 850 mg PO BIDMEALS 10/29/16 17:14 Potassium Chloride [Klor-Con M20] 40 meq PO ONETIME ONE 10/29/16 21:00 GLUCOSE POC LAB TO COLLECT [POC] QIDACANDBED Escitalopram [Lexapro] 30 mg PO BEDTIME 10/30/16 05:00 BASIC METABOLIC PANEL,BMP [CHEM] Timed 10/30/16 07:30 GLUCOSE POC LAB TO COLLECT [POC] QIDACANDBED 10/30/16 11:30 GLUCOSE POC LAB TO COLLECT [POC] QIDACANDBED 10/30/16 16:30 GLUCOSE POC LAB TO COLLECT [POC] QIDACANDBED 10/30/16 21:00 GLUCOSE POC LAB TO COLLECT [POC] QIDACANDBED 10/31/16 07:30 GLUCOSE POC LAB TO COLLECT [POC] QIDACANDBED 10/31/16 11:30 GLUCOSE POC LAB TO COLLECT [POC] QIDACANDBED 10/31/16 16:30 GLUCOSE POC LAB TO COLLECT [POC] QIDACANDBED 10/31/16 21:00 GLUCOSE POC LAB TO COLLECT [POC] QIDACANDBED 11/01/16 07:30 GLUCOSE POC LAB TO COLLECT [POC] QIDACANDBED 11/01/16 11:30 GLUCOSE POC LAB TO COLLECT [POC] QIDACANDBED 11/01/16 16:30 GLUCOSE POC LAB TO COLLECT [POC] QIDACANDBED 11/01/16 21:00 GLUCOSE POC LAB TO COLLECT [POC] QIDACANDBED 11/02/16 07:30 GLUCOSE POC LAB TO COLLECT [POC] QIDACANDBED 11/02/16 11:30 GLUCOSE POC LAB TO COLLECT [POC] QIDACANDBED 11/02/16 16:30 GLUCOSE POC LAB TO COLLECT [POC] QIDACANDBED 11/02/16 21:00 GLUCOSE POC LAB TO COLLECT [POC] QIDACANDBED 11/03/16 07:30 GLUCOSE POC LAB TO COLLECT [POC] QIDACANDBED 11/03/16 11:30 GLUCOSE POC LAB TO COLLECT [POC] QIDACANDBED 11/03/16 16:30 GLUCOSE POC LAB TO COLLECT [POC] QIDACANDBED 11/03/16 21:00 GLUCOSE POC LAB TO COLLECT [POC] QIDACANDBED 11/04/16 07:30 GLUCOSE POC LAB TO COLLECT [POC] QIDACANDBED 11/04/16 11:30 GLUCOSE POC LAB TO COLLECT [POC] QIDACANDBED 11/04/16 16:30 GLUCOSE POC LAB TO COLLECT [POC] QIDACANDBED 11/04/16 21:00 GLUCOSE POC LAB TO COLLECT [POC] QIDACANDBED 11/05/16 07:30 GLUCOSE POC LAB TO COLLECT [POC] QIDACANDBED 11/05/16 11:30 GLUCOSE POC LAB TO COLLECT [POC] QIDACANDBED 11/05/16 16:30 GLUCOSE POC LAB TO COLLECT [POC] QIDACANDBED 11/05/16 21:00 GLUCOSE POC LAB TO COLLECT [POC] QIDACANDBED 11/06/16 07:30 GLUCOSE POC LAB TO COLLECT [POC] QIDACANDBED 11/06/16 11:30 GLUCOSE POC LAB TO COLLECT [POC] QIDACANDBED 11/06/16 16:30 GLUCOSE POC LAB TO COLLECT [POC] QIDACANDBED 11/06/16 21:00 GLUCOSE POC LAB TO COLLECT [POC] QIDACANDBED 11/07/16 07:30 GLUCOSE POC LAB TO COLLECT [POC] QIDACANDBED 11/07/16 11:30 GLUCOSE POC LAB TO COLLECT [POC] QIDACANDBED 11/07/16 16:30 GLUCOSE POC LAB TO COLLECT [POC] QIDACANDBED 11/07/16 21:00 GLUCOSE POC LAB TO COLLECT [POC] QIDACANDBED 11/08/16 07:30 GLUCOSE POC LAB TO COLLECT [POC] QIDACANDBED 11/08/16 11:30 GLUCOSE POC LAB TO COLLECT [POC] QIDACANDBED 11/08/16 16:30 GLUCOSE POC LAB TO COLLECT [POC] QIDACANDBED - Plan Plan:: ASSESSMENT AND PLAN CONGESTIVE HEART FAILURE WITH PRESERVED LEFT VENTRICULAR FUNCTION - shortness of breath has improved since admission -Bumetanide 4 mg twice daily today and in the morning and then reassess -Daily weights -Strict 2 g sodium diet -Accurate I.'s and O.'s -Recheck electrolytes and renal function in a.m. -Supplemental oxygen -Continue home medications COPD -seems to be well compensated at this time with no evidence of acute exacerbation or underlying infection -Continue home medical regimen DIABTETS TYPE 2 -Levemir 36 units subcut bid -Novolog 10 units with meals -Sliding scale coverage; moderate dose -Continue metformin 850 mg by mouth twice a day CHRONIC PAIN - stable -Continue outpatient medical therapy MAINTENANCE ISSUES -Nutrition: diabetic diet -Dougherty catheter placed for strict I and 0 -DVT: scd -GI; Protonix 40mg daily DISPOSITION; home with after hospital stay PRIMARY CARE PROVIDER-Dr. Gonsalez
[2016-10-29] MEDS: Metoprolol Succinate 25 MG Tab.ER PO SCH (21:50)
[2016-10-29] MEDS: Escitalopram 10 MG Tab PO SCH (21:50)
[2016-10-29] MEDS: traZODone 50 MG Tab PO SCH (21:51)
[2016-10-29] MEDS: Simvastatin 20 MG Tab PO SCH (21:51)
[2016-10-29] MEDS: Morphine 15 MG Tab PO PRN (21:59)
[2016-10-30] MEDS: Albuterol/Ipratropium 3.0-0.5 MG/3 ML Neb Soln INH SCH ×4 (07:12→21:07)
[2016-10-30] MEDS: Formoterol/Mometasone 200-5 MCG 8.8 GM Inhaler IH SCH ×2 (08:34→21:08)
[2016-10-30] MEDS: Sucralfate 1 GM Tab PO SCH ×4 (09:00→19:33)
[2016-10-30] MEDS: Bumetanide 2.5 MG/10 ML MDV IVPUSH SCH ×2 (09:04→19:30)
[2016-10-30] MEDS: Verapamil 180 MG Tab.ER PO SCH ×2 (09:07→17:44)
[2016-10-30] MEDS: Pantoprazole 40 MG Tab.CR PO SCH (09:08)
[2016-10-30] MEDS: Aspirin 81 MG Tab.Chew PO SCH (09:08)
[2016-10-30] MEDS: Lactobacillus Rhamnosus GG (Probiotic) Cap PO SCH ×2 (09:09→21:14)
[2016-10-30] MEDS: Isosorbide Mononitrate 30 MG Tab.ER PO SCH (09:09)
[2016-10-30] MEDS: Magnesium Oxide 400 MG Tab PO SCH ×2 (09:10→21:13)
[2016-10-30] MEDS: Enoxaparin 40 MG/0.4 ML Syringe SUBCUT SCH (09:10)
[2016-10-30] MEDS: Gabapentin 300 MG Cap PO SCH ×2 (09:10→21:13)
[2016-10-30] MEDS: Potassium Chloride 20 MEQ Tab.ER PO SCH ×2 (09:10→21:14)
[2016-10-30] MEDS: predniSONE 20 MG Tab PO SCH (09:11)
[2016-10-30] MEDS: Lisinopril 20 MG Tab PO SCH (09:11)
[2016-10-30] MEDS: Oxybutynin 5 MG Tab PO SCH ×2 (09:11→21:13)
[2016-10-30] MEDS: Insulin Detemir 100 Units/ML 3 ML Pen SUBCUT SCH ×2 (09:22→21:08)
[2016-10-30] MEDS: Insulin Aspart 100 Units/ML 3 ML Pen SUBCUT SCH ×7 (09:24→21:10)
[2016-10-30] MEDS: Morphine 15 MG Tab PO PRN (12:20)
[2016-10-30] MEDS: Ferrous Sulfate 325 MG Tab PO SCH (12:20)
[2016-10-30] MEDS: LORazepam 0.5 MG Tab PO PRN ×2 (12:20→19:29)
--- NOTE | 2016-10-30 12:54 | PCM.PN ---
- General Info Date of Service: 10/30/16 Functional Status: Reports: tolerating diet, ambulating - Review of Systems General: Denies: Fever, Weakness, Chills Pulmonary: Reports: shortness of breath. Denies: pleuritic chest pain, cough, sputum, hemoptysis, wheezing Cardiovascular: Reports: Dyspnea on Exertion, Edema. Denies: Chest Pain, Palpitations, Orthopnea, PND Gastrointestinal: Reports: No symptoms Systems Review Comment:: Dipti has done well with current management, diuresis has been excellent thus far with improvement in her shortness of breath as well as peripheral edema. Vital signs have been stable and she has remained afebrile. - Patient Data Vitals - most recent: Last Vital Signs Temp 98.0 F 10/30/16 11:16 Pulse 86 10/30/16 11:16 Resp 18 10/30/16 11:16 BP 89/57 L 10/30/16 11:16 Pulse Ox 93 L 10/30/16 11:16 Weight - most recent: 289 lb 7.012 oz I&O - last 24 hours: Intake & Output 10/29/16 10/30/16 10/30/16 22:59 06:59 14:59 Intake Total 1360 600 480 Output Total 700 2950 Balance 660 -2350 480 Lab Results last 24 hrs: Laboratory Results - last 24 hr 10/30/16 Range/Units 05:47 Sodium 142 (140-148) mmol/L Potassium 4.1 (3.6-5.2) mmol/L Chloride 100 (100-108) mmol/L Carbon Dioxide 39 H (21-32) mmol/L Anion Gap 7.1 (5.0-14.0) mmol/L BUN 16 (7-18) mg/dL Creatinine 0.8 (0.6-1.0) mg/dL Est Cr Clr Drug Dosing 68.26 mL/min Estimated GFR (MDRD) > 60 (>60) Glucose 208 H (74-106) mg/dL Calcium 8.5 (8.5-10.1) mg/dL Med Orders - Current: Current Medications Acetaminophen (Tylenol) 650 mg PO Q4H PRN PRN Reason: Pain (Mild 1-3)/fever Last Admin: 10/28/16 20:27 Dose: 650 mg Albuterol (Proventil Neb Soln) 2.5 mg NEB Q4H PRN PRN Reason: Shortness Of Breath/wheezing Albuterol/Ipratropium (Duoneb 3.0-0.5 Mg/3 Ml) 3 ml INH QIDRT [facility] Last Admin: 10/30/16 10:48 Dose: 3 ml Aspirin (Aspirin) 81 mg PO DAILY [facility] Last Admin: 10/30/16 09:08 Dose: 81 mg Azathioprine (Imuran) 150 mg PO DAILY [facility] Last Admin: 10/30/16 09:09 Dose: 150 mg Bumetanide (Bumex) 4 mg IVPUSH Q12H [facility] Last Admin: 10/30/16 09:04 Dose: 4 mg Cyclobenzaprine HCl (Flexeril) 10 mg PO TID PRN PRN Reason: Pain Dextrose (Glutose 15) 15 gm PO ONETIME PRN PRN Reason: Hypoglycemia Dextrose/Water (Dextrose 50% In Water) 50 ml IV ONETIME PRN PRN Reason: Hypoglycemia Docusate Sodium (Colace) 100 mg PO BID PRN PRN Reason: Constipation Enoxaparin Sodium (Lovenox) 40 mg SUBCUT DAILY [facility] Last Admin: 10/30/16 09:10 Dose: 40 mg Escitalopram Oxalate (Lexapro) 30 mg PO BEDTIME [facility] Last Admin: 10/29/16 21:50 Dose: 30 mg Ferrous Sulfate (Ferrous Sulfate) 325 mg PO DAILY [facility] Last Admin: 10/30/16 12:20 Dose: 325 mg Gabapentin (Neurontin) 300 mg PO BID [facility] Last Admin: 10/30/16 09:10 Dose: 300 mg Heparin Sodium (Porcine) (Heparin Lock Flush 100 Units/Ml Syringe) 500 units FLUSH ASDIRECTED PRN PRN Reason: Keep Vein Open Last Admin: 10/29/16 20:20 Dose: 500 units Insulin Aspart (Novolog) 10 unit SUBCUT TIDMEALS [facility] Last Admin: 10/30/16 09:25 Dose: 10 units Insulin Aspart (Novolog) 0 unit SUBCUT ASDIRECTED [facility] PRN Reason: Protocol Last Admin: 10/30/16 09:24 Dose: 4 unit Insulin Detemir (Levemir) 36 unit SUBCUT BID [facility] Last Admin: 10/30/16 09:22 Dose: 36 unit Isosorbide Mononitrate (Imdur) 30 mg PO DAILY [facility] Last Admin: 10/30/16 09:09 Dose: 30 mg Lactobacillus Rhamnosus (Culturelle) 1 cap PO BID [facility] Last Admin: 10/30/16 09:09 Dose: 1 cap Lisinopril (Prinivil) 20 mg PO DAILY [facility] Last Admin: 10/30/16 09:11 Dose: 20 mg Lorazepam (Ativan) 0.5 mg PO BID PRN PRN Reason: Anxiety Last Admin: 10/30/16 12:20 Dose: 0.5 mg Magnesium Hydroxide (Milk Of Magnesia) 30 ml PO Q12H PRN PRN Reason: Constipation Magnesium Oxide (Magnesium Oxide) 400 mg PO BID [facility] Last Admin: 10/30/16 09:10 Dose: 400 mg Metformin HCl (Glucophage) 850 mg PO BIDMEALS [facility] Last Admin: 10/30/16 09:08 Dose: 850 mg Metoprolol Succinate (Toprol Xl) 25 mg PO BEDTIME [facility] Last Admin: 10/29/16 21:50 Dose: 25 mg Mometasone Furoate/Formoterol Fumar (Dulera 200-5 Mcg) 0 puff IH BID [facility] Last Admin: 10/30/16 08:34 Dose: 2 puff Morphine Sulfate (Morphine) 15 mg PO Q4H PRN PRN Reason: Pain Last Admin: 10/30/16 12:20 Dose: 15 mg Ondansetron HCl (Zofran) 4 mg IV Q4H PRN PRN Reason: Nausea/Vomiting Last Admin: 10/29/16 14:44 Dose: 4 mg Oxybutynin Chloride (Oxybutynin) 5 mg PO BID [facility] Last Admin: 10/30/16 09:11 Dose: 5 mg Pantoprazole Sodium (Protonix) 40 mg PO DAILY@0730 [facility] Last Admin: 10/30/16 09:08 Dose: 40 mg Polyethylene Glycol (Miralax) 17 gm PO DAILY PRN PRN Reason: Constipation Potassium Chloride (Klor-Con M20) 20 meq PO BID [facility] Last Admin: 10/30/16 09:10 Dose: 20 meq Prednisone (Prednisone) 20 mg PO DAILY [facility] Last Admin: 10/30/16 09:11 Dose: 20 mg Promethazine HCl (Phenergan) 25 mg PO Q8H PRN PRN Reason: Nausea Simvastatin (Zocor) 10 mg PO BEDTIME [facility] Last Admin: 10/29/16 21:51 Dose: 10 mg Sodium Chloride (Saline Flush) 10 ml FLUSH ASDIRECTED PRN PRN Reason: Keep Vein Open Sucralfate (Carafate) 1 gm PO QIDACANDBED [facility] Last Admin: 10/30/16 11:39 Dose: Not Given Trazodone HCl (Trazodone) 50 mg PO BEDTIME [facility] Last Admin: 10/29/16 21:51 Dose: 50 mg Verapamil HCl (Calan Sr) 180 mg PO BIDAC [facility] Last Admin: 10/30/16 09:07 Dose: 180 mg Discontinued Medications Acetaminophen (Tylenol Extra Strength) 1,000 mg PO ONETIME ONE Stop: 10/28/16 17:18 Last Admin: 10/28/16 17:44 Dose: 1,000 mg Albuterol/Ipratropium (Duoneb 3.0-0.5 Mg/3 Ml) 3 ml INH QID [facility] Last Admin: 10/29/16 09:43 Dose: Not Given Escitalopram Oxalate (Lexapro) 30 mg PO BEDTIME [facility] Last Admin: 10/28/16 20:29 Dose: 30 mg Escitalopram Oxalate (Lexapro) Confirm Administered Dose 30 mg .ROUTE .STK-MED ONE Stop: 10/28/16 20:27 Last Admin: 10/28/16 21:09 Dose: Not Given Furosemide (Lasix) 80 mg IVPUSH ONETIME ONE Stop: 10/28/16 16:11 Last Admin: 10/28/16 16:26 Dose: 80 mg Heparin Sodium (Porcine) (Heparin Lock Flush 100 Units/Ml Syringe) 500 units FLUSH ASDIRECTED PRN PRN Reason: Keep Vein Open Last Admin: 10/28/16 16:34 Dose: 500 units Heparin Sodium (Porcine) (Heparin Lock Flush 100 Units/Ml Syringe) Confirm Administered Dose 500 units .ROUTE .STK-MED ONE Stop: 10/29/16 05:03 Last Admin: 10/29/16 07:40 Dose: 500 units Metformin HCl (Glucophage) 850 mg PO BID [facility] Last Admin: 10/28/16 20:34 Dose: 850 mg Mometasone Furoate/Formoterol Fumar (Dulera 200-5 Mcg) 2 puff IH BID [facility] Last Admin: 10/28/16 21:10 Dose: 2 puff Potassium Chloride (Klor-Con M20) 40 meq PO ONETIME ONE Stop: 10/29/16 09:31 Last Admin: 10/29/16 09:40 Dose: 40 meq Potassium Chloride (Klor-Con M20) 40 meq PO ONETIME ONE Stop: 10/29/16 17:46 Last Admin: 10/29/16 17:41 Dose: 40 meq - Exam Quality Assessment: DVT prophylaxis General: alert, oriented, cooperative, no acute distress Lungs: Decreased breath sounds. No: Crackles, Rales, Rhonchi, Wheezing Cardiovascular: Regular Rate, Regular Rhythm, No Murmurs Abdomen: bowel sounds present, soft, no tenderness, no distension Extremities: edema Skin: warm, dry, intact - Problem List Review Problem List Initiated/Reviewed/Updated: Yes - My Orders Last 24 Hours: My Active Orders 10/29/16 21:00 Escitalopram [Lexapro] 30 mg PO BEDTIME 10/30/16 11:39 Remove Dougherty Catheter [Urinary Catheter Removal] [RC] Per Unit Routine 10/30/16 16:30 GLUCOSE POC LAB TO COLLECT [POC] QIDACANDBED 10/30/16 21:00 GLUCOSE POC LAB TO COLLECT [POC] QIDACANDBED 10/31/16 05:00 BASIC METABOLIC PANEL,BMP [CHEM] Timed 10/31/16 07:30 GLUCOSE POC LAB TO COLLECT [POC] QIDACANDBED 10/31/16 11:30 GLUCOSE POC LAB TO COLLECT [POC] QIDACANDBED 10/31/16 16:30 GLUCOSE POC LAB TO COLLECT [POC] QIDACANDBED 10/31/16 21:00 GLUCOSE POC LAB TO COLLECT [POC] QIDACANDBED 11/01/16 07:30 GLUCOSE POC LAB TO COLLECT [POC] QIDACANDBED 11/01/16 11:30 GLUCOSE POC LAB TO COLLECT [POC] QIDACANDBED 11/01/16 16:30 GLUCOSE POC LAB TO COLLECT [POC] QIDACANDBED 11/01/16 21:00 GLUCOSE POC LAB TO COLLECT [POC] QIDACANDBED 11/02/16 07:30 GLUCOSE POC LAB TO COLLECT [POC] QIDACANDBED 11/02/16 11:30 GLUCOSE POC LAB TO COLLECT [POC] QIDACANDBED 11/02/16 16:30 GLUCOSE POC LAB TO COLLECT [POC] QIDACANDBED 11/02/16 21:00 GLUCOSE POC LAB TO COLLECT [POC] QIDACANDBED 11/03/16 07:30 GLUCOSE POC LAB TO COLLECT [POC] QIDACANDBED 11/03/16 11:30 GLUCOSE POC LAB TO COLLECT [POC] QIDACANDBED 11/03/16 16:30 GLUCOSE POC LAB TO COLLECT [POC] QIDACANDBED 11/03/16 21:00 GLUCOSE POC LAB TO COLLECT [POC] QIDACANDBED 11/04/16 07:30 GLUCOSE POC LAB TO COLLECT [POC] QIDACANDBED 11/04/16 11:30 GLUCOSE POC LAB TO COLLECT [POC] QIDACANDBED 11/04/16 16:30 GLUCOSE POC LAB TO COLLECT [POC] QIDACANDBED 11/04/16 21:00 GLUCOSE POC LAB TO COLLECT [POC] QIDACANDBED 11/05/16 07:30 GLUCOSE POC LAB TO COLLECT [POC] QIDACANDBED 11/05/16 11:30 GLUCOSE POC LAB TO COLLECT [POC] QIDACANDBED 11/05/16 16:30 GLUCOSE POC LAB TO COLLECT [POC] QIDACANDBED 11/05/16 21:00 GLUCOSE POC LAB TO COLLECT [POC] QIDACANDBED 11/06/16 07:30 GLUCOSE POC LAB TO COLLECT [POC] QIDACANDBED 11/06/16 11:30 GLUCOSE POC LAB TO COLLECT [POC] QIDACANDBED 11/06/16 16:30 GLUCOSE POC LAB TO COLLECT [POC] QIDACANDBED 11/06/16 21:00 GLUCOSE POC LAB TO COLLECT [POC] QIDACANDBED 11/07/16 07:30 GLUCOSE POC LAB TO COLLECT [POC] QIDACANDBED 11/07/16 11:30 GLUCOSE POC LAB TO COLLECT [POC] QIDACANDBED 11/07/16 16:30 GLUCOSE POC LAB TO COLLECT [POC] QIDACANDBED 11/07/16 21:00 GLUCOSE POC LAB TO COLLECT [POC] QIDACANDBED 11/08/16 07:30 GLUCOSE POC LAB TO COLLECT [POC] QIDACANDBED 11/08/16 11:30 GLUCOSE POC LAB TO COLLECT [POC] QIDACANDBED 11/08/16 16:30 GLUCOSE POC LAB TO COLLECT [POC] QIDACANDBED - Plan Plan:: ASSESSMENT AND PLAN CONGESTIVE HEART FAILURE WITH PRESERVED LEFT VENTRICULAR FUNCTION - shortness of breath has improved and peripheral edema has significantly improved with current management and diuresis -Bumetanide 4 mg IV twice daily today and in the morning and then reassess -Daily weights -Strict 2 g sodium diet -Accurate I.'s and O.'s -Recheck electrolytes and renal function in a.m. -Supplemental oxygen -Continue home medications COPD -seems to be well compensated at this time with no evidence of acute exacerbation or underlying infection -Continue home medical regimen DIABTETS TYPE 2 -Levemir 36 units subcut bid -Novolog 10 units with meals -Sliding scale coverage; moderate dose -Continue metformin 850 mg by mouth twice a day CHRONIC PAIN - stable -Continue outpatient medical therapy MAINTENANCE ISSUES -Nutrition: diabetic diet, 2 g sodium diet -Dougherty catheter; catheter removed today -DVT: Lovenox 40 mg subcutaneous daily -GI; Protonix 40mg daily DISPOSITION; anticipate discharge to home tomorrow PRIMARY CARE PROVIDER-Dr. Gonsalez
[2016-10-30] MEDS: Ondansetron 4 MG/2 ML SDV IV PRN ×2 (13:24→19:29)
[2016-10-30] MEDS: Sodium Chloride 0.9% 10 ML Syringe FLUSH PRN (13:24)
[2016-10-30] MEDS: Simvastatin 20 MG Tab PO SCH (21:12)
[2016-10-30] MEDS: Metoprolol Succinate 25 MG Tab.ER PO SCH (21:13)
[2016-10-30] MEDS: traZODone 50 MG Tab PO SCH (21:13)
[2016-10-30] MEDS: Escitalopram 10 MG Tab PO SCH (21:14)
[2016-10-31] MEDS: Acetaminophen 325 MG Tab PO PRN ×2 (00:54→18:57)
[2016-10-31] MEDS: Ondansetron 4 MG/2 ML SDV IV PRN (03:03)
[2016-10-31] MEDS ORDERED: Ciprofloxacin in D5W 400 MG in Premix Bag 1 BAG IV SCH ×2 (03:45)
[2016-10-31] MEDS: Sodium Chloride 0.9% 10 ML Syringe FLUSH PRN ×4 (05:30→21:03)
[2016-10-31] MEDS: Albuterol/Ipratropium 3.0-0.5 MG/3 ML Neb Soln INH SCH ×4 (07:13→21:03)
--- NOTE | 2016-10-31 07:13 | PCM.SN ---
- Free Text/Narrative Note: time 03:36 [address] [facility] Mrs. Daniel has a temp of 39.7 a; fever p; blood cultures x2, ua, start Cipro 400mg iv every 12hours. medicate for fever continue close monitoring of patient
[2016-10-31] MEDS: Sucralfate 1 GM Tab PO SCH ×4 (08:09→20:10)
[2016-10-31] MEDS: Formoterol/Mometasone 200-5 MCG 8.8 GM Inhaler IH SCH ×2 (09:24→21:10)
[2016-10-31] MEDS: Bumetanide 2.5 MG/10 ML MDV IVPUSH SCH (09:51)
[2016-10-31] MEDS: Enoxaparin 40 MG/0.4 ML Syringe SUBCUT SCH (09:53)
[2016-10-31] MEDS: Isosorbide Mononitrate 30 MG Tab.ER PO SCH (10:01)
[2016-10-31] MEDS: Aspirin 81 MG Tab.Chew PO SCH (10:01)
[2016-10-31] MEDS: Lactobacillus Rhamnosus GG (Probiotic) Cap PO SCH ×2 (10:01→21:10)
[2016-10-31] MEDS: Verapamil 180 MG Tab.ER PO SCH ×2 (10:01→17:39)
[2016-10-31] MEDS: Pantoprazole 40 MG Tab.CR PO SCH (10:01)
[2016-10-31] MEDS: Potassium Chloride 20 MEQ Tab.ER PO SCH ×2 (10:02→21:19)
[2016-10-31] MEDS: Magnesium Oxide 400 MG Tab PO SCH ×2 (10:02→21:19)
[2016-10-31] MEDS: Lisinopril 20 MG Tab PO SCH (10:03)
[2016-10-31] MEDS: Oxybutynin 5 MG Tab PO SCH ×2 (10:03→21:20)
[2016-10-31] MEDS: predniSONE 20 MG Tab PO SCH (10:03)
[2016-10-31] MEDS: Gabapentin 300 MG Cap PO SCH ×2 (10:03→21:10)
[2016-10-31] MEDS: Insulin Detemir 100 Units/ML 3 ML Pen SUBCUT SCH ×2 (10:42→21:09)
[2016-10-31] MEDS: Insulin Aspart 100 Units/ML 3 ML Pen SUBCUT SCH ×6 (10:44→21:08)
[2016-10-31] MEDS: cefTRIAXone 1 GM in Sodium Chloride 0.9% 50 ML IV SCH (11:18)
[2016-10-31] MEDS: Ferrous Sulfate 325 MG Tab PO SCH (17:39)
--- NOTE | 2016-10-31 17:41 | PCM.PN ---
- General Info Date of Service: 10/31/16 Functional Status: Reports: tolerating diet, urinating - Review of Systems General: Reports: Fever, Weakness, Chills Pulmonary: Reports: shortness of breath. Denies: pleuritic chest pain, cough, sputum, hemoptysis, wheezing Cardiovascular: Reports: Dyspnea on Exertion, Edema. Denies: Chest Pain, Palpitations, Orthopnea, PND, Lightheadedness Gastrointestinal: Reports: No symptoms Genitourinary: Reports: no symptoms Systems Review Comment:: Dipti experienced a significant temperature elevation during the night to over 103F. Evaluation this morning shows evidence of urinary tract infection, culture has been obtained and is pending. She's feeling more fatigued today, with stable vital signs and no recurrence of her significant temperature elevation. IV diuretics have worked well in her peripheral edema has essentially resolved. - Patient Data Vitals - most recent: Last Vital Signs Temp 99.2 F 10/31/16 11:25 Pulse 84 10/31/16 11:31 Resp 16 10/31/16 11:25 BP 110/72 10/31/16 13:53 Pulse Ox 94 L 10/31/16 11:31 Weight - most recent: 290 lb 3 oz I&O - last 24 hours: Intake & Output 10/31/16 10/31/16 10/31/16 06:59 14:59 22:59 Intake Total 200 290 Output Total 1800 250 Balance -1600 290 -250 Lab Results last 24 hrs: Laboratory Results - last 24 hr 10/31/16 10/31/16 10/31/16 Range/Units 04:10 06:06 09:04 WBC 13.1 H (4.5-11.0) K/uL RBC 4.47 (3.30-5.50) M/uL Hgb 11.5 L (12.0-15.0) g/dL Hct 38.9 (36.0-48.0) % MCV 87 (80-98) fL MCH 26 L (27-31) pg MCHC 30 L (32-36) % Plt Count 276 (150-400) K/uL Neut % (Auto) 91 H (36-66) % Lymph % (Auto) 5 L (24-44) % [place] % (Auto) 4 (2-6) % Eos % (Auto) 1 L (2-4) % Baso % (Auto) 0 (0-1) % Sodium 142 (140-148) mmol/L Potassium 4.0 (3.6-5.2) mmol/L Chloride 98 L (100-108) mmol/L Carbon Dioxide 37 H (21-32) mmol/L Anion Gap 11.0 (5.0-14.0) mmol/L BUN 25 H D (7-18) mg/dL Creatinine 1.1 H (0.6-1.0) mg/dL Est Cr Clr Drug Dosing 49.91 mL/min Estimated GFR (MDRD) 50 L (>60) Glucose 218 H (74-106) mg/dL Calcium 8.8 (8.5-10.1) mg/dL Urine Color Yellow Urine Appearance Cloudy Urine pH 5.0 (4.5-8.0) Ur Specific Edgar 1.020 (1.008-1.030) Urine Protein Negative (NEGATIVE) mg/dL Urine Glucose (UA) Normal (NEGATIVE) mg/dL Urine Ketones Negative (NEGATIVE) mg/dL Urine Occult Blood Moderate (NEGATIVE) Urine Nitrite Negative (NEGATIVE) Urine Bilirubin Negative (NEGATIVE) Urine Urobilinogen Normal (NORMAL) mg/dL Ur Leukocyte Esterase Large (NEGATIVE) Urine RBC 10-20 H (0-5) Urine WBC Semi-packed H (0-5) Ur Epithelial Cells Many Amorphous Sediment Not seen Urine Bacteria Many Urine Mucus Not seen Med Orders - Current: Current Medications Acetaminophen (Tylenol) 650 mg PO Q4H PRN PRN Reason: Pain (Mild 1-3)/fever Last Admin: 10/31/16 00:54 Dose: 650 mg Albuterol (Proventil Neb Soln) 2.5 mg NEB Q4H PRN PRN Reason: Shortness Of Breath/wheezing Albuterol/Ipratropium (Duoneb 3.0-0.5 Mg/3 Ml) 3 ml INH QIDRT [facility] Last Admin: 10/31/16 14:44 Dose: Not Given Aspirin (Aspirin) 81 mg PO DAILY [facility] Last Admin: 10/31/16 10:01 Dose: 81 mg Azathioprine (Imuran) 150 mg PO DAILY [facility] Last Admin: 10/31/16 10:02 Dose: 150 mg Cyclobenzaprine HCl (Flexeril) 10 mg PO TID PRN PRN Reason: Pain Dextrose (Glutose 15) 15 gm PO ONETIME PRN PRN Reason: Hypoglycemia Dextrose/Water (Dextrose 50% In Water) 50 ml IV ONETIME PRN PRN Reason: Hypoglycemia Docusate Sodium (Colace) 100 mg PO BID PRN PRN Reason: Constipation Enoxaparin Sodium (Lovenox) 40 mg SUBCUT DAILY [facility] Last Admin: 10/31/16 09:53 Dose: 40 mg Escitalopram Oxalate (Lexapro) 30 mg PO BEDTIME [facility] Last Admin: 10/30/16 21:14 Dose: 30 mg Ferrous Sulfate (Ferrous Sulfate) 325 mg PO DAILY [facility] Last Admin: 10/30/16 12:20 Dose: 325 mg Gabapentin (Neurontin) 300 mg PO BID [facility] Last Admin: 10/31/16 10:03 Dose: 300 mg Heparin Sodium (Porcine) (Heparin Lock Flush 100 Units/Ml Syringe) 500 units FLUSH ASDIRECTED PRN PRN Reason: Keep Vein Open Last Admin: 10/31/16 12:26 Dose: 500 units Ceftriaxone Sodium 1 gm/ (Sodium Chloride) 50 mls @ 100 mls/hr IV Q24H [facility] Last Admin: 10/31/16 11:18 Dose: 100 mls/hr Insulin Aspart (Novolog) 10 unit SUBCUT TIDMEALS [facility] Last Admin: 10/31/16 11:45 Dose: Not Given Insulin Aspart (Novolog) 0 unit SUBCUT ASDIRECTED [facility] PRN Reason: Protocol Last Admin: 10/31/16 10:44 Dose: 6 unit Insulin Detemir (Levemir) 36 unit SUBCUT BID [facility] Last Admin: 10/31/16 10:42 Dose: 36 unit Isosorbide Mononitrate (Imdur) 30 mg PO DAILY [facility] Last Admin: 10/31/16 10:01 Dose: 30 mg Lactobacillus Rhamnosus (Culturelle) 1 cap PO BID [facility] Last Admin: 10/31/16 10:01 Dose: 1 cap Lisinopril (Prinivil) 20 mg PO DAILY [facility] Last Admin: 10/31/16 10:03 Dose: 20 mg Lorazepam (Ativan) 0.5 mg PO BID PRN PRN Reason: Anxiety Last Admin: 10/30/16 19:29 Dose: 0.5 mg Magnesium Hydroxide (Milk Of Magnesia) 30 ml PO Q12H PRN PRN Reason: Constipation Magnesium Oxide (Magnesium Oxide) 400 mg PO BID [facility] Last Admin: 10/31/16 10:02 Dose: 400 mg Metformin HCl (Glucophage) 850 mg PO BIDMEALS [facility] Last Admin: 10/31/16 10:01 Dose: 850 mg Metoprolol Succinate (Toprol Xl) 25 mg PO BEDTIME [facility] Last Admin: 10/30/16 21:13 Dose: 25 mg Mometasone Furoate/Formoterol Fumar (Dulera 200-5 Mcg) 0 puff IH BID [facility] Last Admin: 10/31/16 09:24 Dose: 2 puff Morphine Sulfate (Morphine) 15 mg PO Q4H PRN PRN Reason: Pain Last Admin: 10/30/16 12:20 Dose: 15 mg Ondansetron HCl (Zofran) 4 mg IV Q4H PRN PRN Reason: Nausea/Vomiting Last Admin: 10/31/16 03:03 Dose: 4 mg Oxybutynin Chloride (Oxybutynin) 5 mg PO BID [facility] Last Admin: 10/31/16 10:03 Dose: 5 mg Pantoprazole Sodium (Protonix) 40 mg PO DAILY@0730 [facility] Last Admin: 10/31/16 10:01 Dose: 40 mg Polyethylene Glycol (Miralax) 17 gm PO DAILY PRN PRN Reason: Constipation Potassium Chloride (Klor-Con M20) 20 meq PO BID [facility] Last Admin: 10/31/16 10:02 Dose: 20 meq Prednisone (Prednisone) 20 mg PO DAILY [facility] Last Admin: 10/31/16 10:03 Dose: 20 mg Promethazine HCl (Phenergan) 25 mg PO Q8H PRN PRN Reason: Nausea Simvastatin (Zocor) 10 mg PO BEDTIME [facility] Last Admin: 10/30/16 21:12 Dose: 10 mg Sodium Chloride (Saline Flush) 10 ml FLUSH ASDIRECTED PRN PRN Reason: Keep Vein Open Last Admin: 10/31/16 12:26 Dose: 10 ml Sucralfate (Carafate) 1 gm PO QIDACANDBED [facility] Last Admin: 10/31/16 16:25 Dose: Not Given Trazodone HCl (Trazodone) 50 mg PO BEDTIME [facility] Last Admin: 10/30/16 21:13 Dose: 50 mg Verapamil HCl (Calan Sr) 180 mg PO BIDAC [facility] Last Admin: 10/31/16 10:01 Dose: 180 mg Discontinued Medications Acetaminophen (Tylenol Extra Strength) 1,000 mg PO ONETIME ONE Stop: 10/28/16 17:18 Last Admin: 10/28/16 17:44 Dose: 1,000 mg Albuterol/Ipratropium (Duoneb 3.0-0.5 Mg/3 Ml) 3 ml INH QID [facility] Last Admin: 10/29/16 09:43 Dose: Not Given Bumetanide (Bumex) 4 mg IVPUSH Q12H [facility] Last Admin: 10/31/16 09:51 Dose: 4 mg Escitalopram Oxalate (Lexapro) 30 mg PO BEDTIME [facility] Last Admin: 10/28/16 20:29 Dose: 30 mg Escitalopram Oxalate (Lexapro) Confirm Administered Dose 30 mg .ROUTE .STK-MED ONE Stop: 10/28/16 20:27 Last Admin: 10/28/16 21:09 Dose: Not Given Furosemide (Lasix) 80 mg IVPUSH ONETIME ONE Stop: 10/28/16 16:11 Last Admin: 10/28/16 16:26 Dose: 80 mg Heparin Sodium (Porcine) (Heparin Lock Flush 100 Units/Ml Syringe) 500 units FLUSH ASDIRECTED PRN PRN Reason: Keep Vein Open Last Admin: 10/28/16 16:34 Dose: 500 units Heparin Sodium (Porcine) (Heparin Lock Flush 100 Units/Ml Syringe) Confirm Administered Dose 500 units .ROUTE .STK-MED ONE Stop: 10/29/16 05:03 Last Admin: 10/29/16 07:40 Dose: 500 units Ciprofloxacin/Dextrose 400 mg/ (Premix) 200 mls @ 200 mls/hr IV Q12H [facility] Last Admin: 10/31/16 04:07 Dose: 200 mls/hr Metformin HCl (Glucophage) 850 mg PO BID [facility] Last Admin: 10/28/16 20:34 Dose: 850 mg Mometasone Furoate/Formoterol Fumar (Dulera 200-5 Mcg) 2 puff IH BID [facility] Last Admin: 10/28/16 21:10 Dose: 2 puff Potassium Chloride (Klor-Con M20) 40 meq PO ONETIME ONE Stop: 10/29/16 09:31 Last Admin: 10/29/16 09:40 Dose: 40 meq Potassium Chloride (Klor-Con M20) 40 meq PO ONETIME ONE Stop: 10/29/16 17:46 Last Admin: 10/29/16 17:41 Dose: 40 meq - Exam Quality Assessment: DVT prophylaxis General: alert, oriented, cooperative Lungs: Normal respiratory effort, Decreased breath sounds. No: Crackles, Rales , Rhonchi, Rub, Wheezing Cardiovascular: Regular Rate, Regular Rhythm, No Murmurs Abdomen: bowel sounds present, soft, no tenderness, no distension Extremities: no edema Skin: warm, dry, intact - Problem List Review Problem List Initiated/Reviewed/Updated: Yes - My Orders Last 24 Hours: My Active Orders 10/31/16 09:52 CULTURE URINE [RM] Stat 10/31/16 10:30 cefTRIAXone [Rocephin] 1 gm Sodium Chloride 0.9% [Normal Saline] 50 ml IV Q24H 10/31/16 21:00 GLUCOSE POC LAB TO COLLECT [POC] QIDACANDBED 11/01/16 05:00 BASIC METABOLIC PANEL,BMP [CHEM] Timed CBC WITH AUTO DIFF [HEME] Timed MAGNESIUM [CHEM] Timed 11/01/16 07:30 GLUCOSE POC LAB TO COLLECT [POC] QIDACANDBED 11/01/16 08:00 Bumetanide [Bumex] 3 mg PO BIDDIURETIC 11/01/16 11:30 GLUCOSE POC LAB TO COLLECT [POC] QIDACANDBED 11/01/16 16:30 GLUCOSE POC LAB TO COLLECT [POC] QIDACANDBED 11/01/16 21:00 GLUCOSE POC LAB TO COLLECT [POC] QIDACANDBED 11/02/16 07:30 GLUCOSE POC LAB TO COLLECT [POC] QIDACANDBED 11/02/16 11:30 GLUCOSE POC LAB TO COLLECT [POC] QIDACANDBED 11/02/16 16:30 GLUCOSE POC LAB TO COLLECT [POC] QIDACANDBED 11/02/16 21:00 GLUCOSE POC LAB TO COLLECT [POC] QIDACANDBED 11/03/16 07:30 GLUCOSE POC LAB TO COLLECT [POC] QIDACANDBED 11/03/16 11:30 GLUCOSE POC LAB TO COLLECT [POC] QIDACANDBED 11/03/16 16:30 GLUCOSE POC LAB TO COLLECT [POC] QIDACANDBED 11/03/16 21:00 GLUCOSE POC LAB TO COLLECT [POC] QIDACANDBED 11/04/16 07:30 GLUCOSE POC LAB TO COLLECT [POC] QIDACANDBED 11/04/16 11:30 GLUCOSE POC LAB TO COLLECT [POC] QIDACANDBED 11/04/16 16:30 GLUCOSE POC LAB TO COLLECT [POC] QIDACANDBED 11/04/16 21:00 GLUCOSE POC LAB TO COLLECT [POC] QIDACANDBED 11/05/16 07:30 GLUCOSE POC LAB TO COLLECT [POC] QIDACANDBED 11/05/16 11:30 GLUCOSE POC LAB TO COLLECT [POC] QIDACANDBED 11/05/16 16:30 GLUCOSE POC LAB TO COLLECT [POC] QIDACANDBED 11/05/16 21:00 GLUCOSE POC LAB TO COLLECT [POC] QIDACANDBED 11/06/16 07:30 GLUCOSE POC LAB TO COLLECT [POC] QIDACANDBED 11/06/16 11:30 GLUCOSE POC LAB TO COLLECT [POC] QIDACANDBED 11/06/16 16:30 GLUCOSE POC LAB TO COLLECT [POC] QIDACANDBED 11/06/16 21:00 GLUCOSE POC LAB TO COLLECT [POC] QIDACANDBED 11/07/16 07:30 GLUCOSE POC LAB TO COLLECT [POC] QIDACANDBED 11/07/16 11:30 GLUCOSE POC LAB TO COLLECT [POC] QIDACANDBED 11/07/16 16:30 GLUCOSE POC LAB TO COLLECT [POC] QIDACANDBED 11/07/16 21:00 GLUCOSE POC LAB TO COLLECT [POC] QIDACANDBED 11/08/16 07:30 GLUCOSE POC LAB TO COLLECT [POC] QIDACANDBED 11/08/16 11:30 GLUCOSE POC LAB TO COLLECT [POC] QIDACANDBED 11/08/16 16:30 GLUCOSE POC LAB TO COLLECT [POC] QIDACANDBED - Plan Plan:: ASSESSMENT AND PLAN CONGESTIVE HEART FAILURE WITH PRESERVED LEFT VENTRICULAR FUNCTION - peripheral edema has resolved, shortness of breath has improved -Bumetanide 3 mg by mouth twice daily -Daily weights -Strict 2 g sodium diet -Accurate I.'s and O.'s -Recheck electrolytes and renal function in a.m. -Supplemental oxygen -Continue home medications URINARY TRACT INFECTION-significant temperature elevation earlier this morning. Urine analysis is consistent with infection. -Urine culture pending -Rocephin 1 g IV every 24 hours COPD -seems to be well compensated at this time with no evidence of acute exacerbation or underlying infection -Continue home medical regimen DIABTETS TYPE 2 -Levemir 36 units subcut bid -Novolog 10 units with meals -Sliding scale coverage; moderate dose -Continue metformin 850 mg by mouth twice a day CHRONIC PAIN - stable -Continue outpatient medical therapy MAINTENANCE ISSUES -Nutrition: diabetic diet, 2 g sodium diet -Dougherty catheter; catheter removed today -DVT: Lovenox 40 mg subcutaneous daily -GI; Protonix 40mg daily DISPOSITION; anticipate discharge to home tomorrow PRIMARY CARE PROVIDER-Dr. Gonsalez
[2016-10-31] MEDS ORDERED: Sodium Chloride 0.9% 500 ML IV ONE (18:17)
[2016-10-31] MEDS: Escitalopram 10 MG Tab PO SCH (21:11)
[2016-10-31] MEDS: Simvastatin 20 MG Tab PO SCH (21:18)
[2016-10-31] MEDS: Metoprolol Succinate 25 MG Tab.ER PO SCH (21:20)
[2016-10-31] MEDS: traZODone 50 MG Tab PO SCH (21:21)
[2016-11-01] MEDS: Acetaminophen 325 MG Tab PO PRN ×3 (01:56→20:58)
[2016-11-01] MEDS: Ondansetron 4 MG/2 ML SDV IV PRN ×2 (03:21→11:15)
[2016-11-01] MEDS: Sodium Chloride 0.9% 10 ML Syringe FLUSH PRN (03:22)
[2016-11-01] MEDS: Albuterol/Ipratropium 3.0-0.5 MG/3 ML Neb Soln INH SCH ×4 (07:07→20:58)
[2016-11-01] MEDS: Sucralfate 1 GM Tab PO SCH ×4 (07:26→19:54)
[2016-11-01] MEDS: Pantoprazole 40 MG Tab.CR PO SCH (07:27)
[2016-11-01] MEDS: Verapamil 180 MG Tab.ER PO SCH ×3 (07:27→17:37)
[2016-11-01] MEDS: Insulin Aspart 100 Units/ML 3 ML Pen SUBCUT SCH ×6 (07:30→20:59)
[2016-11-01] MEDS: Bumetanide 1 MG Tab PO SCH ×2 (07:35→13:04)
[2016-11-01] MEDS: Formoterol/Mometasone 200-5 MCG 8.8 GM Inhaler IH SCH ×2 (08:15→20:43)
[2016-11-01] MEDS: Insulin Detemir 100 Units/ML 3 ML Pen SUBCUT SCH ×2 (08:45→20:56)
[2016-11-01] MEDS: Lactobacillus Rhamnosus GG (Probiotic) Cap PO SCH ×2 (08:47→20:43)
[2016-11-01] MEDS: Ferrous Sulfate 325 MG Tab PO SCH (08:47)
[2016-11-01] MEDS: Isosorbide Mononitrate 30 MG Tab.ER PO SCH (08:47)
[2016-11-01] MEDS: Aspirin 81 MG Tab.Chew PO SCH (08:47)
[2016-11-01] MEDS: Potassium Chloride 20 MEQ Tab.ER PO SCH ×2 (08:48→20:43)
[2016-11-01] MEDS: Enoxaparin 40 MG/0.4 ML Syringe SUBCUT SCH (08:48)
[2016-11-01] MEDS: Gabapentin 300 MG Cap PO SCH ×2 (08:49→20:43)
[2016-11-01] MEDS: predniSONE 20 MG Tab PO SCH (08:49)
[2016-11-01] MEDS: Magnesium Oxide 400 MG Tab PO SCH ×2 (08:49→20:43)
[2016-11-01] MEDS: Oxybutynin 5 MG Tab PO SCH ×2 (08:49→20:43)
[2016-11-01] MEDS: Lisinopril 20 MG Tab PO SCH (08:50)
[2016-11-01] MEDS: cefTRIAXone 1 GM in Sodium Chloride 0.9% 50 ML IV SCH (10:32)
[2016-11-01] MEDS ORDERED: Ketorolac 30 MG/ML SDV IVPUSH ONE (10:49)
[2016-11-01] MEDS ORDERED: VANCOMYCIN IV ONE (11:00)
[2016-11-01] MEDS ORDERED: SODIUM CHLORIDE 0.9% IV ONE (11:00)
--- NOTE | 2016-11-01 17:16 | PCM.PN ---
- General Info Date of Service: 11/01/16 Functional Status: Reports: tolerating diet, urinating. Denies: ambulating - Review of Systems General: Reports: Fever, Weakness HEENT: Reports: headaches Pulmonary: Denies: shortness of breath Musculoskeletal: Reports: joint pain Systems Review Comment:: Patient has been febrile throughout much of the night. Once her blood cultures is growing gram-positive cocci and this was collected from her port site. She has a mild to moderate headache as well as diffuse joint aches. She does not feel short of breath. Lower extremity edema is stable. Blood sugars moderately elevated. No complaints of abdominal pain today. - Patient Data Vitals - most recent: Last Vital Signs Temp 36.6 C 11/01/16 16:50 Pulse 81 11/01/16 16:50 Resp 20 11/01/16 16:50 BP 91/50 L 11/01/16 16:50 Pulse Ox 94 L 11/01/16 16:50 Weight - most recent: 133.441 kg I&O - last 24 hours: Intake & Output 11/01/16 11/01/16 11/01/16 06:59 14:59 22:59 Intake Total 710 Output Total 750 400 Balance -750 310 Lab Results last 24 hrs: Laboratory Results - last 24 hr 11/01/16 11/01/16 Range/Units 05:18 05:18 WBC 9.0 (4.5-11.0) K/uL RBC 4.17 (3.30-5.50) M/uL Hgb 11.0 L (12.0-15.0) g/dL Hct 36.6 (36.0-48.0) % MCV 88 (80-98) fL MCH 26 L (27-31) pg MCHC 30 L (32-36) % Plt Count 245 (150-400) K/uL Neut % (Auto) 89 H (36-66) % Lymph % (Auto) 5 L (24-44) % [place] % (Auto) 5 (2-6) % Eos % (Auto) 0 L (2-4) % Baso % (Auto) 0 (0-1) % Sodium 140 (140-148) mmol/L Potassium 4.7 (3.6-5.2) mmol/L Chloride 99 L (100-108) mmol/L Carbon Dioxide 36 H (21-32) mmol/L Anion Gap 9.7 (5.0-14.0) mmol/L BUN 38 H D (7-18) mg/dL Creatinine 1.5 H (0.6-1.0) mg/dL Est Cr Clr Drug Dosing 36.60 mL/min Estimated GFR (MDRD) 35 L (>60) Glucose 282 H (74-106) mg/dL Calcium 9.1 (8.5-10.1) mg/dL Magnesium 1.9 (1.8-2.4) mg/dL Frank Results last 24 hrs: Microbiology 10/31/16 09:52 Urine Culture - Preliminary Urine, Clean Catch MIXED POSITIVE DENNIS DAY 1 10/31/16 04:09 Aerobic Blood Culture - Preliminary Blood - Venous - Lab Draw NO GROWTH AFTER 1 DAY Anaerobic Blood Culture - Preliminary NO GROWTH AFTER 1 DAY 10/31/16 04:06 Aerobic Blood Culture - Preliminary Blood - Port-A-Cath Anaerobic Blood Culture - Preliminary NO GROWTH AFTER 1 DAY Med Orders - Current: Current Medications Acetaminophen (Tylenol) 650 mg PO Q4H PRN PRN Reason: Pain (Mild 1-3)/fever Last Admin: 11/01/16 08:54 Dose: 650 mg Albuterol (Proventil Neb Soln) 2.5 mg NEB Q4H PRN PRN Reason: Shortness Of Breath/wheezing Albuterol/Ipratropium (Duoneb 3.0-0.5 Mg/3 Ml) 3 ml INH QIDRT [facility] Last Admin: 11/01/16 14:47 Dose: 3 ml Aspirin (Aspirin) 81 mg PO DAILY [facility] Last Admin: 11/01/16 08:47 Dose: 81 mg Azathioprine (Imuran) 150 mg PO DAILY [facility] Last Admin: 11/01/16 08:48 Dose: 150 mg Bumetanide (Bumex) 3 mg PO BIDDIURETIC [facility] Last Admin: 11/01/16 13:04 Dose: 3 mg Cyclobenzaprine HCl (Flexeril) 10 mg PO TID PRN PRN Reason: Pain Dextrose (Glutose 15) 15 gm PO ONETIME PRN PRN Reason: Hypoglycemia Dextrose/Water (Dextrose 50% In Water) 50 ml IV ONETIME PRN PRN Reason: Hypoglycemia Docusate Sodium (Colace) 100 mg PO BID PRN PRN Reason: Constipation Enoxaparin Sodium (Lovenox) 40 mg SUBCUT DAILY [facility] Last Admin: 11/01/16 08:48 Dose: 40 mg Escitalopram Oxalate (Lexapro) 30 mg PO BEDTIME [facility] Last Admin: 10/31/16 21:11 Dose: 30 mg Ferrous Sulfate (Ferrous Sulfate) 325 mg PO DAILY [facility] Last Admin: 11/01/16 08:47 Dose: 325 mg Gabapentin (Neurontin) 300 mg PO BID [facility] Last Admin: 11/01/16 08:49 Dose: 300 mg Heparin Sodium (Porcine) (Heparin Lock Flush 100 Units/Ml Syringe) 500 units FLUSH ASDIRECTED PRN PRN Reason: Keep Vein Open Last Admin: 11/01/16 03:21 Dose: 500 units Heparin Sodium (Porcine) (Heparin Lock Flush 100 Units/Ml Syringe) 500 units FLUSH ASDIRECTED PRN PRN Reason: Other Last Admin: 11/01/16 14:58 Dose: 500 units Ceftriaxone Sodium 1 gm/ (Sodium Chloride) 50 mls @ 100 mls/hr IV Q24H [facility] Last Admin: 11/01/16 10:32 Dose: 100 mls/hr Vancomycin HCl 2,000 mg/ (Dextrose/Water) 250 mls @ 125 mls/hr IV Q24H [facility] Sodium Chloride (Normal Saline) 500 mls @ 500 mls/hr IV ASDIRECTED [facility] Stop: 11/01/16 18:16 Insulin Aspart (Novolog) 10 unit SUBCUT TIDMEALS [facility] Last Admin: 11/01/16 12:41 Dose: 10 units Insulin Aspart (Novolog) 0 unit SUBCUT ASDIRECTED [facility] PRN Reason: Protocol Last Admin: 10/31/16 21:08 Dose: 8 unit Insulin Detemir (Levemir) 36 unit SUBCUT BID [facility] Last Admin: 11/01/16 08:45 Dose: 36 unit Isosorbide Mononitrate (Imdur) 30 mg PO DAILY [facility] Last Admin: 11/01/16 08:47 Dose: 30 mg Lactobacillus Rhamnosus (Culturelle) 1 cap PO BID [facility] Last Admin: 11/01/16 08:47 Dose: 1 cap Lisinopril (Prinivil) 20 mg PO DAILY [facility] Last Admin: 11/01/16 08:50 Dose: 20 mg Lorazepam (Ativan) 0.5 mg PO BID PRN PRN Reason: Anxiety Last Admin: 10/30/16 19:29 Dose: 0.5 mg Magnesium Hydroxide (Milk Of Magnesia) 30 ml PO Q12H PRN PRN Reason: Constipation Magnesium Oxide (Magnesium Oxide) 400 mg PO BID [facility] Last Admin: 11/01/16 08:49 Dose: 400 mg Metoprolol Succinate (Toprol Xl) 25 mg PO BEDTIME [facility] Last Admin: 10/31/16 21:20 Dose: 25 mg Mometasone Furoate/Formoterol Fumar (Dulera 200-5 Mcg) 0 puff IH BID [facility] Last Admin: 11/01/16 08:15 Dose: 2 puff Morphine Sulfate (Morphine) 15 mg PO Q4H PRN PRN Reason: Pain Last Admin: 10/30/16 12:20 Dose: 15 mg Ondansetron HCl (Zofran) 4 mg IV Q4H PRN PRN Reason: Nausea/Vomiting Last Admin: 11/01/16 11:15 Dose: 4 mg Oxybutynin Chloride (Oxybutynin) 5 mg PO BID [facility] Last Admin: 11/01/16 08:49 Dose: 5 mg Pantoprazole Sodium (Protonix) 40 mg PO DAILY@0730 [facility] Last Admin: 11/01/16 07:27 Dose: 40 mg Polyethylene Glycol (Miralax) 17 gm PO DAILY PRN PRN Reason: Constipation Potassium Chloride (Klor-Con M20) 20 meq PO BID [facility] Last Admin: 11/01/16 08:48 Dose: 20 meq Prednisone (Prednisone) 20 mg PO DAILY [facility] Last Admin: 11/01/16 08:49 Dose: 20 mg Promethazine HCl (Phenergan) 25 mg PO Q8H PRN PRN Reason: Nausea Simvastatin (Zocor) 10 mg PO BEDTIME [facility] Last Admin: 10/31/16 21:18 Dose: 10 mg Sodium Chloride (Saline Flush) 10 ml FLUSH ASDIRECTED PRN PRN Reason: Keep Vein Open Last Admin: 11/01/16 03:22 Dose: 10 ml Sucralfate (Carafate) 1 gm PO QIDACANDBED [facility] Last Admin: 11/01/16 10:33 Dose: 1 gm Trazodone HCl (Trazodone) 50 mg PO BEDTIME [facility] Last Admin: 10/31/16 21:21 Dose: 50 mg Verapamil HCl (Calan Sr) 180 mg PO BIDAC [facility] Last Admin: 11/01/16 07:27 Dose: 180 mg Discontinued Medications Acetaminophen (Tylenol Extra Strength) 1,000 mg PO ONETIME ONE Stop: 10/28/16 17:18 Last Admin: 10/28/16 17:44 Dose: 1,000 mg Albuterol/Ipratropium (Duoneb 3.0-0.5 Mg/3 Ml) 3 ml INH QID [facility] Last Admin: 10/29/16 09:43 Dose: Not Given Bumetanide (Bumex) 4 mg IVPUSH Q12H [facility] Last Admin: 10/31/16 09:51 Dose: 4 mg Escitalopram Oxalate (Lexapro) 30 mg PO BEDTIME [facility] Last Admin: 10/28/16 20:29 Dose: 30 mg Escitalopram Oxalate (Lexapro) Confirm Administered Dose 30 mg .ROUTE .STK-MED ONE Stop: 10/28/16 20:27 Last Admin: 10/28/16 21:09 Dose: Not Given Furosemide (Lasix) 80 mg IVPUSH ONETIME ONE Stop: 10/28/16 16:11 Last Admin: 10/28/16 16:26 Dose: 80 mg Heparin Sodium (Porcine) (Heparin Lock Flush 100 Units/Ml Syringe) 500 units FLUSH ASDIRECTED PRN PRN Reason: Keep Vein Open Last Admin: 10/28/16 16:34 Dose: 500 units Heparin Sodium (Porcine) (Heparin Lock Flush 100 Units/Ml Syringe) Confirm Administered Dose 500 units .ROUTE .STK-MED ONE Stop: 10/29/16 05:03 Last Admin: 10/29/16 07:40 Dose: 500 units Ciprofloxacin/Dextrose 400 mg/ (Premix) 200 mls @ 200 mls/hr IV Q12H [facility] Last Admin: 10/31/16 04:07 Dose: 200 mls/hr Sodium Chloride (Normal Saline) 500 mls @ 500 mls/hr IV .BOLUS ONE Stop: 10/31/16 19:16 Last Admin: 10/31/16 18:50 Dose: 500 mls/hr Vancomycin HCl 2.5 gm/ Sodium (Chloride) 250 mls @ 100 mls/hr IV ONETIME ONE Stop: 11/01/16 13:29 Last Admin: 11/01/16 11:20 Dose: 100 mls/hr Ketorolac Tromethamine (Toradol) 15 mg IVPUSH ONETIME ONE Stop: 11/01/16 10:50 Last Admin: 11/01/16 12:41 Dose: 15 mg Metformin HCl (Glucophage) 850 mg PO BID [facility] Last Admin: 10/28/16 20:34 Dose: 850 mg Metformin HCl (Glucophage) 850 mg PO BIDMEALS [facility] Last Admin: 11/01/16 07:29 Dose: 850 mg Mometasone Furoate/Formoterol Fumar (Dulera 200-5 Mcg) 2 puff IH BID [facility] Last Admin: 10/28/16 21:10 Dose: 2 puff Potassium Chloride (Klor-Con M20) 40 meq PO ONETIME ONE Stop: 10/29/16 09:31 Last Admin: 10/29/16 09:40 Dose: 40 meq Potassium Chloride (Klor-Con M20) 40 meq PO ONETIME ONE Stop: 10/29/16 17:46 Last Admin: 10/29/16 17:41 Dose: 40 meq - Exam Quality Assessment: supplemental oxygen General: alert, oriented, cooperative, mild distress Neck: supple Lungs: Clear to auscultation, Normal respiratory effort Cardiovascular: Regular Rate, Regular Rhythm Abdomen: bowel sounds present, soft, no distension Extremities: no cyanosis, edema (mild bilateral ankle edema) Skin: warm, dry Psy/Mental Status: alert, other (Lethargic) - Problem List Review Problem List Initiated/Reviewed/Updated: Yes - My Orders Last 24 Hours: My Active Orders 11/01/16 14:46 Heparin Sodium [Heparin Lock Flush 100 Units/ML Syringe] 500 units FLUSH ASDIRECTED PRN 11/01/16 17:15 Sodium Chloride 0.9% [Normal Saline] 500 ml IV ASDIRECTED 11/02/16 05:00 BASIC METABOLIC PANEL,BMP [CHEM] Timed CBC W/O DIFF,HEMOGRAM [HEME] Timed (1) 11/02/16 10:00 Vancomycin 2,000 mg Dextrose 5% in Water 250 ml IV Q24H - Plan Plan:: ASSESSMENT AND PLAN Gram-positive bacteremia - initial concern for urinary tract infection as discussed below. One blood culture set is positive for gram-positive cocci. Patient has been febrile for the better part of the night. Blood pressure has been trending down. She does have an indwelling port -Empiric vancomycin -Continue ceftriaxone as below -Followup cultures CONGESTIVE HEART FAILURE WITH PRESERVED LEFT VENTRICULAR FUNCTION - peripheral edema has essentially resolved and respiratory status is at baseline. -Bumetanide 3 mg by mouth twice daily -Daily weights -Strict 2 g sodium diet -Accurate I.'s and O.'s -Recheck electrolytes and renal function in a.m. -Supplemental oxygen -Continue home medications Acute cystitis - urinalysis suggestive of infection. Culture so far has mixed dennis. -Urine culture pending -Continue ceftriaxone Acute kidney injury - creatinine has more than doubled since admission. Probably combination of recent diuresis as well as new fever and acute infection. -Fluid challenge -Repeat labs in the morning COPD -seems to be well compensated at this time with no evidence of acute exacerbation or underlying infection -Continue home medical regimen DIABTETS TYPE 2 -Levemir 36 units subcut bid -Novolog 10 units with meals -Sliding scale coverage; moderate dose -Hold metformin CHRONIC PAIN - stable -Continue outpatient medical therapy MAINTENANCE ISSUES -Nutrition: diabetic diet, 2 g sodium diet -Dougherty catheter; catheter removed today -DVT: Lovenox 40 mg subcutaneous daily -GI; Protonix 40mg daily DISPOSITION; pending at this time with high fever and bacteremia Saran Bolivar M.D.
[2016-11-01] MEDS ORDERED: Sodium Chloride 0.9% 500 ML IV ONE (17:45)
[2016-11-01] MEDS: Simvastatin 20 MG Tab PO SCH (20:42)
[2016-11-01] MEDS: Escitalopram 10 MG Tab PO SCH (20:42)
[2016-11-01] MEDS: Metoprolol Succinate 25 MG Tab.ER PO SCH (20:43)
[2016-11-01] MEDS: traZODone 50 MG Tab PO SCH (20:58)
[2016-11-02] MEDS: Acetaminophen 325 MG Tab PO PRN ×2 (03:45→17:52)
[2016-11-02] MEDS: Sucralfate 1 GM Tab PO SCH ×4 (06:45→20:05)
[2016-11-02] MEDS: Albuterol/Ipratropium 3.0-0.5 MG/3 ML Neb Soln INH SCH ×4 (07:11→20:17)
[2016-11-02] MEDS: Pantoprazole 40 MG Tab.CR PO SCH (07:30)
[2016-11-02] MEDS: Verapamil 180 MG Tab.ER PO SCH ×2 (07:35→17:08)
[2016-11-02] MEDS: Insulin Aspart 100 Units/ML 3 ML Pen SUBCUT SCH ×7 (07:36→22:32)
[2016-11-02] MEDS: Aspirin 81 MG Tab.Chew PO SCH (09:15)
[2016-11-02] MEDS: Lactobacillus Rhamnosus GG (Probiotic) Cap PO SCH ×2 (09:15→20:09)
[2016-11-02] MEDS: Formoterol/Mometasone 200-5 MCG 8.8 GM Inhaler IH SCH ×2 (09:15→20:09)
[2016-11-02] MEDS: Ferrous Sulfate 325 MG Tab PO SCH (09:16)
[2016-11-02] MEDS: Gabapentin 300 MG Cap PO SCH ×2 (09:16→20:09)
[2016-11-02] MEDS: predniSONE 20 MG Tab PO SCH (09:17)
[2016-11-02] MEDS: Oxybutynin 5 MG Tab PO SCH ×2 (09:17→20:09)
[2016-11-02] MEDS: Enoxaparin 40 MG/0.4 ML Syringe SUBCUT SCH (09:17)
[2016-11-02] MEDS: Magnesium Oxide 400 MG Tab PO SCH ×2 (09:17→20:09)
[2016-11-02] MEDS: Insulin Detemir 100 Units/ML 3 ML Pen SUBCUT SCH ×2 (09:20→22:31)
[2016-11-02] MEDS: Lisinopril 20 MG Tab PO SCH (09:21)
[2016-11-02] MEDS: Isosorbide Mononitrate 30 MG Tab.ER PO SCH (09:21)
[2016-11-02] MEDS: Potassium Chloride 20 MEQ Tab.ER PO SCH ×2 (09:21→20:09)
[2016-11-02] MEDS ORDERED: WATER IV SCH ×2 (10:00)
[2016-11-02] MEDS ORDERED: VANCOMYCIN IV SCH ×2 (10:00)
[2016-11-02] MEDS ORDERED: DEXTROSE 5% IV SCH ×2 (10:00)
[2016-11-02] MEDS: cefTRIAXone 1 GM in Sodium Chloride 0.9% 50 ML IV SCH (11:43)
[2016-11-02] MEDS: Morphine 15 MG Tab PO PRN (12:24)
--- NOTE | 2016-11-02 13:20 | PCM.PN ---
- General Info Date of Service: 11/02/16 Functional Status: Reports: pain controlled, tolerating diet - Review of Systems General: Reports: Weakness. Denies: Fever Pulmonary: Reports: shortness of breath (mild) Systems Review Comment:: No acute events overnight. Fever has not recurred since yesterday morning. She feels a little bit short of breath this morning. Has not been out of bed and moving around much other than to go to the bathroom. Appetite is excellent. Blood sugars moderately elevated. No growth from blood cultures at this time and in fact the one that we thought was positive yesterday is no longer growing any bacteria. urine culture growing mixed dennis. - Patient Data Vitals - most recent: Last Vital Signs Temp 37.4 C 11/02/16 11:33 Pulse 89 11/02/16 11:33 Resp 16 11/02/16 11:33 BP 111/62 11/02/16 11:33 Pulse Ox 91 L 11/02/16 11:33 Weight - most recent: 133.084 kg I&O - last 24 hours: Intake & Output 11/01/16 11/02/16 11/02/16 22:59 06:59 14:59 Intake Total 480 250 Output Total 1500 1200 900 Balance -1500 720 -650 Lab Results last 24 hrs: Laboratory Results - last 24 hr 11/02/16 11/02/16 Range/Units 05:59 05:59 WBC 6.3 (4.5-11.0) K/uL RBC 4.15 (3.30-5.50) M/uL Hgb 10.7 L (12.0-15.0) g/dL Hct 36.8 (36.0-48.0) % MCV 89 (80-98) fL MCH 26 L (27-31) pg MCHC 29 L (32-36) % Plt Count 226 (150-400) K/uL Sodium 142 (140-148) mmol/L Potassium 4.4 (3.6-5.2) mmol/L Chloride 100 (100-108) mmol/L Carbon Dioxide 40 H (21-32) mmol/L Anion Gap 6.4 (5.0-14.0) mmol/L BUN 25 H (7-18) mg/dL Creatinine 1.0 (0.6-1.0) mg/dL Est Cr Clr Drug Dosing 54.90 mL/min Estimated GFR (MDRD) 56 L (>60) Glucose 284 H (74-106) mg/dL Calcium 9.3 (8.5-10.1) mg/dL Frank Results last 24 hrs: Microbiology 10/31/16 04:06 Aerobic Blood Culture - Preliminary Blood - Port-A-Cath Anaerobic Blood Culture - Preliminary NO GROWTH AFTER 2 DAYS 10/31/16 09:52 Urine Culture - Final Urine, Clean Catch MIXED POSITIVE DENNIS DAY 2 10/31/16 04:09 Aerobic Blood Culture - Preliminary Blood - Venous - Lab Draw NO GROWTH AFTER 2 DAYS Anaerobic Blood Culture - Preliminary NO GROWTH AFTER 2 DAYS Med Orders - Current: Current Medications Acetaminophen (Tylenol) 650 mg PO Q4H PRN PRN Reason: Pain (Mild 1-3)/fever Last Admin: 11/02/16 03:45 Dose: 650 mg Albuterol (Proventil Neb Soln) 2.5 mg NEB Q4H PRN PRN Reason: Shortness Of Breath/wheezing Albuterol/Ipratropium (Duoneb 3.0-0.5 Mg/3 Ml) 3 ml INH QIDRT [facility] Last Admin: 11/02/16 10:53 Dose: 3 ml Aspirin (Aspirin) 81 mg PO DAILY [facility] Last Admin: 11/02/16 09:15 Dose: 81 mg Azathioprine (Imuran) 150 mg PO DAILY [facility] Last Admin: 11/02/16 09:22 Dose: 150 mg Bumetanide (Bumex) 3 mg PO BIDDIURETIC [facility] Last Admin: 11/01/16 13:04 Dose: 3 mg Cyclobenzaprine HCl (Flexeril) 10 mg PO TID PRN PRN Reason: Pain Dextrose (Glutose 15) 15 gm PO ONETIME PRN PRN Reason: Hypoglycemia Dextrose/Water (Dextrose 50% In Water) 50 ml IV ONETIME PRN PRN Reason: Hypoglycemia Docusate Sodium (Colace) 100 mg PO BID PRN PRN Reason: Constipation Enoxaparin Sodium (Lovenox) 40 mg SUBCUT DAILY [facility] Last Admin: 11/02/16 09:17 Dose: 40 mg Escitalopram Oxalate (Lexapro) 30 mg PO BEDTIME [facility] Last Admin: 11/01/16 20:42 Dose: 30 mg Ferrous Sulfate (Ferrous Sulfate) 325 mg PO DAILY [facility] Last Admin: 11/02/16 09:16 Dose: 325 mg Gabapentin (Neurontin) 300 mg PO BID [facility] Last Admin: 11/02/16 09:16 Dose: 300 mg Heparin Sodium (Porcine) (Heparin Lock Flush 100 Units/Ml Syringe) 500 units FLUSH ASDIRECTED PRN PRN Reason: Keep Vein Open Last Admin: 11/02/16 12:23 Dose: 500 units Heparin Sodium (Porcine) (Heparin Lock Flush 100 Units/Ml Syringe) 500 units FLUSH ASDIRECTED PRN PRN Reason: Other Last Admin: 11/01/16 19:55 Dose: 500 units Ceftriaxone Sodium 1 gm/ (Sodium Chloride) 50 mls @ 100 mls/hr IV Q24H [facility] Last Admin: 11/02/16 11:43 Dose: 100 mls/hr Vancomycin HCl 2,000 mg/ (Sodium Chloride) 250 mls @ 125 mls/hr IV Q12H [facility] Last Admin: 11/02/16 09:29 Dose: 125 mls/hr Insulin Aspart (Novolog) 10 unit SUBCUT TIDMEALS [facility] Last Admin: 11/02/16 12:19 Dose: 10 units Insulin Aspart (Novolog) 0 unit SUBCUT ASDIRECTED [facility] PRN Reason: Protocol Last Admin: 11/02/16 12:17 Dose: 4 unit Insulin Detemir (Levemir) 36 unit SUBCUT BID [facility] Last Admin: 11/02/16 09:20 Dose: 36 unit Isosorbide Mononitrate (Imdur) 30 mg PO DAILY [facility] Last Admin: 11/02/16 09:21 Dose: 30 mg Lactobacillus Rhamnosus (Culturelle) 1 cap PO BID [facility] Last Admin: 11/02/16 09:15 Dose: 1 cap Lisinopril (Prinivil) 20 mg PO DAILY [facility] Last Admin: 11/02/16 09:21 Dose: 20 mg Lorazepam (Ativan) 0.5 mg PO BID PRN PRN Reason: Anxiety Last Admin: 10/30/16 19:29 Dose: 0.5 mg Magnesium Hydroxide (Milk Of Magnesia) 30 ml PO Q12H PRN PRN Reason: Constipation Magnesium Oxide (Magnesium Oxide) 400 mg PO BID [facility] Last Admin: 11/02/16 09:17 Dose: 400 mg Metoprolol Succinate (Toprol Xl) 25 mg PO BEDTIME [facility] Last Admin: 11/01/16 20:43 Dose: 25 mg Mometasone Furoate/Formoterol Fumar (Dulera 200-5 Mcg) 0 puff IH BID [facility] Last Admin: 11/02/16 09:15 Dose: 2 puff Morphine Sulfate (Morphine) 15 mg PO Q4H PRN PRN Reason: Pain Last Admin: 11/02/16 12:24 Dose: 15 mg Ondansetron HCl (Zofran) 4 mg IV Q4H PRN PRN Reason: Nausea/Vomiting Last Admin: 11/01/16 11:15 Dose: 4 mg Oxybutynin Chloride (Oxybutynin) 5 mg PO BID [facility] Last Admin: 11/02/16 09:17 Dose: 5 mg Pantoprazole Sodium (Protonix) 40 mg PO DAILY@0730 [facility] Last Admin: 11/02/16 07:30 Dose: 40 mg Polyethylene Glycol (Miralax) 17 gm PO DAILY PRN PRN Reason: Constipation Potassium Chloride (Klor-Con M20) 20 meq PO BID [facility] Last Admin: 11/02/16 09:21 Dose: 20 meq Prednisone (Prednisone) 20 mg PO DAILY [facility] Last Admin: 11/02/16 09:17 Dose: 20 mg Promethazine HCl (Phenergan) 25 mg PO Q8H PRN PRN Reason: Nausea Simvastatin (Zocor) 10 mg PO BEDTIME [facility] Last Admin: 11/01/16 20:42 Dose: 10 mg Sodium Chloride (Saline Flush) 10 ml FLUSH ASDIRECTED PRN PRN Reason: Keep Vein Open Last Admin: 11/01/16 03:22 Dose: 10 ml Sucralfate (Carafate) 1 gm PO QIDACANDBED [facility] Last Admin: 11/02/16 12:29 Dose: Not Given Trazodone HCl (Trazodone) 50 mg PO BEDTIME [facility] Last Admin: 11/01/16 20:58 Dose: 50 mg Verapamil HCl (Calan Sr) 180 mg PO BIDAC [facility] Discontinued Medications Acetaminophen (Tylenol Extra Strength) 1,000 mg PO ONETIME ONE Stop: 10/28/16 17:18 Last Admin: 10/28/16 17:44 Dose: 1,000 mg Albuterol/Ipratropium (Duoneb 3.0-0.5 Mg/3 Ml) 3 ml INH QID [facility] Last Admin: 10/29/16 09:43 Dose: Not Given Bumetanide (Bumex) 4 mg IVPUSH Q12H [facility] Last Admin: 10/31/16 09:51 Dose: 4 mg Escitalopram Oxalate (Lexapro) 30 mg PO BEDTIME [facility] Last Admin: 10/28/16 20:29 Dose: 30 mg Escitalopram Oxalate (Lexapro) Confirm Administered Dose 30 mg .ROUTE .STK-MED ONE Stop: 10/28/16 20:27 Last Admin: 10/28/16 21:09 Dose: Not Given Furosemide (Lasix) 80 mg IVPUSH ONETIME ONE Stop: 10/28/16 16:11 Last Admin: 10/28/16 16:26 Dose: 80 mg Heparin Sodium (Porcine) (Heparin Lock Flush 100 Units/Ml Syringe) 500 units FLUSH ASDIRECTED PRN PRN Reason: Keep Vein Open Last Admin: 10/28/16 16:34 Dose: 500 units Heparin Sodium (Porcine) (Heparin Lock Flush 100 Units/Ml Syringe) Confirm Administered Dose 500 units .ROUTE .STK-MED ONE Stop: 10/29/16 05:03 Last Admin: 10/29/16 07:40 Dose: 500 units Ciprofloxacin/Dextrose 400 mg/ (Premix) 200 mls @ 200 mls/hr IV Q12H [facility] Last Admin: 10/31/16 04:07 Dose: 200 mls/hr Sodium Chloride (Normal Saline) 500 mls @ 500 mls/hr IV .BOLUS ONE Stop: 10/31/16 19:16 Last Admin: 10/31/16 18:50 Dose: 500 mls/hr Vancomycin HCl 2.5 gm/ Sodium (Chloride) 250 mls @ 100 mls/hr IV ONETIME ONE Stop: 11/01/16 13:29 Last Admin: 11/01/16 11:20 Dose: 100 mls/hr Sodium Chloride (Normal Saline) 500 mls @ 500 mls/hr IV ONETIME ONE Stop: 11/01/16 18:44 Last Admin: 11/01/16 17:36 Dose: 500 mls/hr Ketorolac Tromethamine (Toradol) 15 mg IVPUSH ONETIME ONE Stop: 11/01/16 10:50 Last Admin: 11/01/16 12:41 Dose: 15 mg Metformin HCl (Glucophage) 850 mg PO BID [facility] Last Admin: 10/28/16 20:34 Dose: 850 mg Metformin HCl (Glucophage) 850 mg PO BIDMEALS [facility] Last Admin: 11/01/16 07:29 Dose: 850 mg Mometasone Furoate/Formoterol Fumar (Dulera 200-5 Mcg) 2 puff IH BID [facility] Last Admin: 10/28/16 21:10 Dose: 2 puff Potassium Chloride (Klor-Con M20) 40 meq PO ONETIME ONE Stop: 10/29/16 09:31 Last Admin: 10/29/16 09:40 Dose: 40 meq Potassium Chloride (Klor-Con M20) 40 meq PO ONETIME ONE Stop: 10/29/16 17:46 Last Admin: 10/29/16 17:41 Dose: 40 meq Verapamil HCl (Calan Sr) 180 mg PO BIDAC [facility] Last Admin: 11/02/16 07:35 Dose: 180 mg - Exam Quality Assessment: supplemental oxygen General: alert, oriented, cooperative, no acute distress Neck: supple Lungs: Normal respiratory effort, Rales (few at the bases). No: Wheezing Cardiovascular: Regular Rate, Regular Rhythm Abdomen: soft, no distension Extremities: no cyanosis, edema (mild bilateral ankle edema) Skin: warm, dry Psy/Mental Status: alert, normal affect - Problem List Review Problem List Initiated/Reviewed/Updated: Yes - My Orders Last 24 Hours: My Active Orders 11/01/16 14:46 Heparin Sodium [Heparin Lock Flush 100 Units/ML Syringe] 500 units FLUSH ASDIRECTED PRN 11/02/16 09:00 Vancomycin 2,000 mg Sodium Chloride 0.9% [Normal Saline] 250 ml IV Q12H 11/02/16 16:30 Verapamil [Calan SR] 180 mg PO BIDAC - Plan Plan:: ASSESSMENT AND PLAN Gram-positive bacteremia, suspected - initial concern for urinary tract infection as discussed below. One blood culture set was positive for gram- positive cocci but is no longer growing bacteria. Clinically doing much better after vancomycin initiated yesterday. -Empiric vancomycin, discontinue tomorrow if cultures are negative -Continue ceftriaxone as below -Followup cultures CONGESTIVE HEART FAILURE WITH PRESERVED LEFT VENTRICULAR FUNCTION - peripheral edema is minimal. Diuretic was on hold this morning because of low blood pressures yesterday but should be able to restart this afternoon. -Bumetanide 3 mg by mouth twice daily -Daily weights -Strict 2 g sodium diet -Accurate I.'s and O.'s -Supplemental oxygen -Continue home medications Acute cystitis - urinalysis suggestive of infection. Culture so far has mixed dennis. -Recheck urine culture tomorrow -Continue ceftriaxone Acute kidney injury - creatinine now back to baseline with gentle fluids and holding diuretics. -Monitor urine output COPD -seems to be well compensated at this time with no evidence of acute exacerbation or underlying infection -Continue home medical regimen DIABTETS TYPE 2 -Levemir 36 units subcut bid -Novolog 10 units with meals -Sliding scale coverage; moderate dose -Hold metformin, should be able to restart tomorrow CHRONIC PAIN - stable -Continue outpatient medical therapy MAINTENANCE ISSUES -Nutrition: diabetic diet, 2 g sodium diet -Dougherty catheter; catheter removed today -DVT: Enoxaparin 40 mg subcutaneous daily -GI; pantoprazole 40mg daily DISPOSITION; anticipate discharge to home in a couple of days Saran Bolivar M.D.
[2016-11-02] MEDS: Bumetanide 1 MG Tab PO SCH (14:36)
[2016-11-02] MEDS: Escitalopram 10 MG Tab PO SCH (20:09)
[2016-11-02] MEDS: Simvastatin 20 MG Tab PO SCH (20:10)
[2016-11-02] MEDS: traZODone 50 MG Tab PO SCH (20:10)
[2016-11-02] MEDS: Metoprolol Succinate 25 MG Tab.ER PO SCH (20:10)
[2016-11-02] MEDS: LORazepam 0.5 MG Tab PO PRN (22:48)
[2016-11-03] MEDS: Sucralfate 1 GM Tab PO SCH ×4 (06:26→20:31)
[2016-11-03] MEDS: Albuterol/Ipratropium 3.0-0.5 MG/3 ML Neb Soln INH SCH ×4 (07:20→21:29)
[2016-11-03] MEDS: Verapamil 180 MG Tab.ER PO SCH ×2 (07:43→17:05)
[2016-11-03] MEDS: Formoterol/Mometasone 200-5 MCG 8.8 GM Inhaler IH SCH ×2 (08:02→21:32)
[2016-11-03] MEDS: Insulin Aspart 100 Units/ML 3 ML Pen SUBCUT SCH ×7 (08:31→21:40)
[2016-11-03] MEDS: Pantoprazole 40 MG Tab.CR PO SCH (08:31)
[2016-11-03] MEDS: Bumetanide 1 MG Tab PO SCH ×2 (08:31→14:10)
[2016-11-03] MEDS: Enoxaparin 40 MG/0.4 ML Syringe SUBCUT SCH (09:08)
[2016-11-03] MEDS: Ferrous Sulfate 325 MG Tab PO SCH (09:11)
[2016-11-03] MEDS: Oxybutynin 5 MG Tab PO SCH ×2 (09:11→21:36)
[2016-11-03] MEDS: Magnesium Oxide 400 MG Tab PO SCH ×2 (09:11→21:35)
[2016-11-03] MEDS: Aspirin 81 MG Tab.Chew PO SCH (09:11)
[2016-11-03] MEDS: Gabapentin 300 MG Cap PO SCH ×2 (09:11→21:35)
[2016-11-03] MEDS: Isosorbide Mononitrate 30 MG Tab.ER PO SCH (09:11)
[2016-11-03] MEDS: predniSONE 20 MG Tab PO SCH (09:11)
[2016-11-03] MEDS: Potassium Chloride 20 MEQ Tab.ER PO SCH ×2 (09:12→21:32)
[2016-11-03] MEDS: Lactobacillus Rhamnosus GG (Probiotic) Cap PO SCH ×2 (09:12→21:31)
[2016-11-03] MEDS: Lisinopril 20 MG Tab PO SCH (09:13)
[2016-11-03] MEDS: Insulin Detemir 100 Units/ML 3 ML Pen SUBCUT SCH ×2 (09:14→21:33)
[2016-11-03] MEDS: Magnesium Hydroxide 400 MG/5 ML Susp 30 ML Cup PO PRN ×2 (09:32→21:31)
[2016-11-03] MEDS ORDERED: oxyCODONE 5 MG Tab PO PRN (10:47)
--- NOTE | 2016-11-03 10:50 | PCM.PN ---
- General Info Date of Service: 11/03/16 Functional Status: Reports: pain controlled, tolerating diet, ambulating - Review of Systems General: Reports: Weakness. Denies: Fever Pulmonary: Reports: shortness of breath (mild) Systems Review Comment:: No acute events overnight. We did hold her antihypertensives last night and will again this morning with low normal blood pressures. She's feeling better but still feels fatigued. Mild shortness of breath reported today, especially with activity. Blood sugars have been better but remains mildly elevated. No fevers overnight. One out of 4 blood cultures are growing staph epidermidis. - Patient Data Vitals - most recent: Last Vital Signs Temp 35.8 C 11/03/16 07:00 Pulse 71 11/03/16 08:37 Resp 16 11/03/16 07:00 BP 107/57 L 11/03/16 09:13 Pulse Ox 95 11/03/16 07:00 Weight - most recent: 133.039 kg I&O - last 24 hours: Intake & Output 11/02/16 11/03/16 11/03/16 22:59 06:59 14:59 Intake Total 480 Output Total 2050 Balance -1570 Frank Results last 24 hrs: Microbiology 10/31/16 04:06 Aerobic Blood Culture - Final Blood - Port-A-Cath Staphylococcus Epidermidis Anaerobic Blood Culture - Final NO GROWTH AFTER 3 DAYS 10/31/16 04:09 Aerobic Blood Culture - Preliminary Blood - Venous - Lab Draw NO GROWTH AFTER 3 DAYS Anaerobic Blood Culture - Preliminary NO GROWTH AFTER 3 DAYS 10/31/16 09:52 Urine Culture - Final Urine, Clean Catch MIXED POSITIVE DENNIS DAY 2 Med Orders - Current: Current Medications Acetaminophen (Tylenol) 650 mg PO Q4H PRN PRN Reason: Pain (Mild 1-3)/fever Last Admin: 11/02/16 17:52 Dose: 650 mg Albuterol (Proventil Neb Soln) 2.5 mg NEB Q4H PRN PRN Reason: Shortness Of Breath/wheezing Last Admin: 11/02/16 14:36 Dose: 2.5 mg Albuterol/Ipratropium (Duoneb 3.0-0.5 Mg/3 Ml) 3 ml INH QIDRT [facility] Last Admin: 11/03/16 07:20 Dose: 3 ml Aspirin (Aspirin) 81 mg PO DAILY [facility] Last Admin: 11/03/16 09:11 Dose: 81 mg Azathioprine (Imuran) 150 mg PO DAILY [facility] Last Admin: 11/03/16 09:12 Dose: 150 mg Bumetanide (Bumex) 3 mg PO BIDDIURETIC [facility] Last Admin: 11/03/16 08:31 Dose: 3 mg Cyclobenzaprine HCl (Flexeril) 10 mg PO TID PRN PRN Reason: Pain Dextrose (Glutose 15) 15 gm PO ONETIME PRN PRN Reason: Hypoglycemia Dextrose/Water (Dextrose 50% In Water) 50 ml IV ONETIME PRN PRN Reason: Hypoglycemia Docusate Sodium (Colace) 100 mg PO BID PRN PRN Reason: Constipation Enoxaparin Sodium (Lovenox) 40 mg SUBCUT DAILY [facility] Last Admin: 11/03/16 09:08 Dose: 40 mg Escitalopram Oxalate (Lexapro) 30 mg PO BEDTIME [facility] Last Admin: 11/02/16 20:09 Dose: 30 mg Ferrous Sulfate (Ferrous Sulfate) 325 mg PO DAILY [facility] Last Admin: 11/03/16 09:11 Dose: 325 mg Gabapentin (Neurontin) 300 mg PO BID [facility] Last Admin: 11/03/16 09:11 Dose: 300 mg Heparin Sodium (Porcine) (Heparin Lock Flush 100 Units/Ml Syringe) 500 units FLUSH ASDIRECTED PRN PRN Reason: Keep Vein Open Last Admin: 11/02/16 12:23 Dose: 500 units Heparin Sodium (Porcine) (Heparin Lock Flush 100 Units/Ml Syringe) 500 units FLUSH ASDIRECTED PRN PRN Reason: Other Last Admin: 11/02/16 22:43 Dose: 500 units Ceftriaxone Sodium 1 gm/ (Sodium Chloride) 50 mls @ 100 mls/hr IV Q24H [facility] Last Admin: 11/02/16 11:43 Dose: 100 mls/hr Insulin Aspart (Novolog) 10 unit SUBCUT TIDMEALS [facility] Last Admin: 11/03/16 08:31 Dose: 10 units Insulin Aspart (Novolog) 0 unit SUBCUT ASDIRECTED [facility] PRN Reason: Protocol Last Admin: 11/03/16 08:33 Dose: 2 unit Insulin Detemir (Levemir) 36 unit SUBCUT BID [facility] Last Admin: 11/03/16 09:14 Dose: 36 unit Isosorbide Mononitrate (Imdur) 30 mg PO DAILY [facility] Last Admin: 11/03/16 09:11 Dose: 30 mg Lactobacillus Rhamnosus (Culturelle) 1 cap PO BID [facility] Last Admin: 11/03/16 09:12 Dose: 1 cap Lisinopril (Prinivil) 20 mg PO DAILY [facility] Last Admin: 11/03/16 09:13 Dose: Not Given Lorazepam (Ativan) 0.5 mg PO BID PRN PRN Reason: Anxiety Last Admin: 11/02/16 22:48 Dose: 0.5 mg Magnesium Hydroxide (Milk Of Magnesia) 30 ml PO Q12H PRN PRN Reason: Constipation Last Admin: 11/03/16 09:32 Dose: 30 ml Magnesium Oxide (Magnesium Oxide) 400 mg PO BID [facility] Last Admin: 11/03/16 09:11 Dose: 400 mg Metoprolol Succinate (Toprol Xl) 25 mg PO BEDTIME [facility] Last Admin: 11/02/16 20:10 Dose: 25 mg Mometasone Furoate/Formoterol Fumar (Dulera 200-5 Mcg) 0 puff IH BID [facility] Last Admin: 11/03/16 08:02 Dose: 2 puff Morphine Sulfate (Morphine) 15 mg PO Q4H PRN PRN Reason: Chest Pain Last Admin: 11/02/16 12:24 Dose: 15 mg Ondansetron HCl (Zofran) 4 mg IV Q4H PRN PRN Reason: Nausea/Vomiting Last Admin: 11/01/16 11:15 Dose: 4 mg Oxybutynin Chloride (Oxybutynin) 5 mg PO BID [facility] Last Admin: 11/03/16 09:11 Dose: 5 mg Oxycodone HCl (Oxycodone) 5 - 10 mg PO Q4H PRN PRN Reason: Pain (moderate 4-6) Pantoprazole Sodium (Protonix) 40 mg PO DAILY@0730 [facility] Last Admin: 11/03/16 08:31 Dose: 40 mg Polyethylene Glycol (Miralax) 17 gm PO DAILY PRN PRN Reason: Constipation Potassium Chloride (Klor-Con M20) 20 meq PO BID [facility] Last Admin: 11/03/16 09:12 Dose: 20 meq Prednisone (Prednisone) 20 mg PO DAILY [facility] Last Admin: 11/03/16 09:11 Dose: 20 mg Promethazine HCl (Phenergan) 25 mg PO Q8H PRN PRN Reason: Nausea Simvastatin (Zocor) 10 mg PO BEDTIME [facility] Last Admin: 11/02/16 20:10 Dose: 10 mg Sodium Chloride (Saline Flush) 10 ml FLUSH ASDIRECTED PRN PRN Reason: Keep Vein Open Last Admin: 11/01/16 03:22 Dose: 10 ml Sucralfate (Carafate) 1 gm PO QIDACANDBED [facility] Last Admin: 11/03/16 06:26 Dose: Not Given Trazodone HCl (Trazodone) 50 mg PO BEDTIME [facility] Last Admin: 11/02/16 20:10 Dose: 50 mg Verapamil HCl (Calan Sr) 180 mg PO BIDAC [facility] Last Admin: 11/03/16 07:43 Dose: Not Given Discontinued Medications Acetaminophen (Tylenol Extra Strength) 1,000 mg PO ONETIME ONE Stop: 10/28/16 17:18 Last Admin: 10/28/16 17:44 Dose: 1,000 mg Albuterol/Ipratropium (Duoneb 3.0-0.5 Mg/3 Ml) 3 ml INH QID [facility] Last Admin: 10/29/16 09:43 Dose: Not Given Bumetanide (Bumex) 4 mg IVPUSH Q12H [facility] Last Admin: 10/31/16 09:51 Dose: 4 mg Escitalopram Oxalate (Lexapro) 30 mg PO BEDTIME [facility] Last Admin: 10/28/16 20:29 Dose: 30 mg Escitalopram Oxalate (Lexapro) Confirm Administered Dose 30 mg .ROUTE .STK-MED ONE Stop: 10/28/16 20:27 Last Admin: 10/28/16 21:09 Dose: Not Given Furosemide (Lasix) 80 mg IVPUSH ONETIME ONE Stop: 10/28/16 16:11 Last Admin: 10/28/16 16:26 Dose: 80 mg Heparin Sodium (Porcine) (Heparin Lock Flush 100 Units/Ml Syringe) 500 units FLUSH ASDIRECTED PRN PRN Reason: Keep Vein Open Last Admin: 10/28/16 16:34 Dose: 500 units Heparin Sodium (Porcine) (Heparin Lock Flush 100 Units/Ml Syringe) Confirm Administered Dose 500 units .ROUTE .STK-MED ONE Stop: 10/29/16 05:03 Last Admin: 10/29/16 07:40 Dose: 500 units Ciprofloxacin/Dextrose 400 mg/ (Premix) 200 mls @ 200 mls/hr IV Q12H [facility] Last Admin: 10/31/16 04:07 Dose: 200 mls/hr Sodium Chloride (Normal Saline) 500 mls @ 500 mls/hr IV .BOLUS ONE Stop: 10/31/16 19:16 Last Admin: 10/31/16 18:50 Dose: 500 mls/hr Vancomycin HCl 2.5 gm/ Sodium (Chloride) 250 mls @ 100 mls/hr IV ONETIME ONE Stop: 11/01/16 13:29 Last Admin: 11/01/16 11:20 Dose: 100 mls/hr Sodium Chloride (Normal Saline) 500 mls @ 500 mls/hr IV ONETIME ONE Stop: 11/01/16 18:44 Last Admin: 11/01/16 17:36 Dose: 500 mls/hr Vancomycin HCl 2,000 mg/ (Sodium Chloride) 250 mls @ 125 mls/hr IV Q12H [facility] Last Admin: 11/02/16 20:17 Dose: 125 mls/hr Ketorolac Tromethamine (Toradol) 15 mg IVPUSH ONETIME ONE Stop: 11/01/16 10:50 Last Admin: 11/01/16 12:41 Dose: 15 mg Metformin HCl (Glucophage) 850 mg PO BID [facility] Last Admin: 10/28/16 20:34 Dose: 850 mg Metformin HCl (Glucophage) 850 mg PO BIDMEALS [facility] Last Admin: 11/01/16 07:29 Dose: 850 mg Mometasone Furoate/Formoterol Fumar (Dulera 200-5 Mcg) 2 puff IH BID [facility] Last Admin: 10/28/16 21:10 Dose: 2 puff Potassium Chloride (Klor-Con M20) 40 meq PO ONETIME ONE Stop: 10/29/16 09:31 Last Admin: 10/29/16 09:40 Dose: 40 meq Potassium Chloride (Klor-Con M20) 40 meq PO ONETIME ONE Stop: 10/29/16 17:46 Last Admin: 10/29/16 17:41 Dose: 40 meq Verapamil HCl (Calan Sr) 180 mg PO BIDAC [facility] Last Admin: 11/02/16 07:35 Dose: 180 mg - Exam Quality Assessment: supplemental oxygen General: alert, oriented, cooperative, no acute distress Neck: supple Lungs: Normal respiratory effort, Rales (rare both mid lungs). No: Wheezing Cardiovascular: Regular Rate, Regular Rhythm Abdomen: soft, no distension Extremities: no edema, no cyanosis Skin: warm, dry Psy/Mental Status: alert, normal affect - Problem List Review Problem List Initiated/Reviewed/Updated: Yes - My Orders Last 24 Hours: My Active Orders 11/02/16 16:30 Verapamil [Calan SR] 180 mg PO BIDAC 11/03/16 10:47 oxyCODONE 5 - 10 mg PO Q4H PRN 11/04/16 05:00 BASIC METABOLIC PANEL,BMP [CHEM] Timed CBC W/O DIFF,HEMOGRAM [HEME] Timed (1) - Plan Plan:: ASSESSMENT AND PLAN Gram-positive bacteremia, suspected - culture growing staph epidermidis, likely contaminant with only one out of 4 bottles involved. Plan to discontinue vancomycin and monitor temperatures and clinical status. -Discontinue vancomycin -Continue ceftriaxone as below -Followup cultures -Repeat blood cultures if she has another fever CONGESTIVE HEART FAILURE WITH PRESERVED LEFT VENTRICULAR FUNCTION - no edema and seems to be well compensated at this time. -Bumetanide 3 mg by mouth twice daily -Daily weights -Strict 2 g sodium diet -Accurate I.'s and O.'s -Supplemental oxygen -Continue home medications Acute cystitis - urinalysis suggestive of infection. Culture so far has mixed dennis. -Recheck urine culture tomorrow -Continue ceftriaxone, transition to orals tomorrow Acute kidney injury - creatinine now back to baseline with gentle fluids and holding diuretics. -Monitor urine output COPD -seems to be well compensated at this time with no evidence of acute exacerbation or underlying infection -Continue home medical regimen DIABTETS TYPE 2 - blood sugar control has improved. -Levemir 36 units subcut bid -Novolog 10 units with meals -Sliding scale coverage; moderate dose -Restart metformin CHRONIC PAIN - stable -Continue outpatient medical therapy MAINTENANCE ISSUES -Nutrition: diabetic diet, 2 g sodium diet -Dougherty catheter; catheter removed today -DVT: Enoxaparin 40 mg subcutaneous daily -GI; pantoprazole 40mg daily DISPOSITION; anticipate discharge to home in a couple of days Saran Bolivar M.D.
[2016-11-03] MEDS: cefTRIAXone 1 GM in Sodium Chloride 0.9% 50 ML IV SCH (11:23)
[2016-11-03] MEDS: Ondansetron 4 MG/2 ML SDV IV PRN (19:28)
[2016-11-03] MEDS: Escitalopram 10 MG Tab PO SCH (21:34)
[2016-11-03] MEDS: traZODone 50 MG Tab PO SCH (21:37)
[2016-11-03] MEDS: Simvastatin 20 MG Tab PO SCH (21:37)
[2016-11-03] MEDS: Docusate Sodium 100 MG Cap PO PRN (21:40)
[2016-11-03] MEDS: Metoprolol Succinate 25 MG Tab.ER PO SCH (21:41)
[2016-11-03] MEDS: LORazepam 0.5 MG Tab PO PRN (21:44)
[2016-11-04] MEDS: Albuterol/Ipratropium 3.0-0.5 MG/3 ML Neb Soln INH SCH ×4 (07:12→21:43)
[2016-11-04] MEDS: Sucralfate 1 GM Tab PO SCH ×4 (07:54→21:40)
[2016-11-04] MEDS: Verapamil 180 MG Tab.ER PO SCH ×2 (07:55→16:15)
[2016-11-04] MEDS: Pantoprazole 40 MG Tab.CR PO SCH (07:56)
[2016-11-04] MEDS: Bumetanide 1 MG Tab PO SCH ×2 (07:58→16:15)
[2016-11-04] MEDS: Oxybutynin 5 MG Tab PO SCH ×2 (07:59→21:43)
[2016-11-04] MEDS: Potassium Chloride 20 MEQ Tab.ER PO SCH ×2 (07:59→21:43)
[2016-11-04] MEDS: Enoxaparin 40 MG/0.4 ML Syringe SUBCUT SCH (08:02)
[2016-11-04] MEDS: Magnesium Oxide 400 MG Tab PO SCH ×2 (08:02→21:43)
[2016-11-04] MEDS: Aspirin 81 MG Tab.Chew PO SCH (08:04)
[2016-11-04] MEDS: Lactobacillus Rhamnosus GG (Probiotic) Cap PO SCH ×2 (08:04→21:43)
[2016-11-04] MEDS: Ferrous Sulfate 325 MG Tab PO SCH (08:05)
[2016-11-04] MEDS: Isosorbide Mononitrate 30 MG Tab.ER PO SCH (08:06)
[2016-11-04] MEDS: Insulin Detemir 100 Units/ML 3 ML Pen SUBCUT SCH ×2 (08:10→21:53)
[2016-11-04] MEDS: predniSONE 20 MG Tab PO SCH (08:12)
[2016-11-04] MEDS: Gabapentin 300 MG Cap PO SCH ×2 (08:12→21:43)
[2016-11-04] MEDS: Formoterol/Mometasone 200-5 MCG 8.8 GM Inhaler IH SCH ×2 (08:13→21:42)
[2016-11-04] MEDS: Insulin Aspart 100 Units/ML 3 ML Pen SUBCUT SCH ×7 (08:13→21:53)
[2016-11-04] MEDS: Lisinopril 20 MG Tab PO SCH (08:13)
[2016-11-04] MEDS: cefTRIAXone 1 GM in Sodium Chloride 0.9% 50 ML IV SCH (11:04)
[2016-11-04] MEDS: Acetaminophen 325 MG Tab PO PRN (11:44)
--- NOTE | 2016-11-04 12:15 | PCM.PN ---
- General Info Date of Service: 11/04/16 Functional Status: Reports: pain controlled, tolerating diet - Review of Systems General: Denies: Fever Pulmonary: Denies: shortness of breath Cardiovascular: Denies: Edema Systems Review Comment:: No acute events overnight. Shortness of breath has been slowly improving. She did not have any fevers overnight. No abdominal pain or nausea. Blood sugars have been fairly well controlled. No new positive culture results. Still feels weak and tired but thinks she is on the mend. - Patient Data Vitals - most recent: Last Vital Signs Temp 37.4 C 11/04/16 11:00 Pulse 87 11/04/16 11:00 Resp 18 11/04/16 11:00 BP 89/54 L 11/04/16 11:00 Pulse Ox 91 L 11/04/16 11:00 Weight - most recent: 133.356 kg I&O - last 24 hours: Intake & Output 11/03/16 11/04/16 11/04/16 22:59 06:59 14:59 Intake Total 355 240 460 Output Total 1250 700 300 Balance -895 -460 160 Lab Results last 24 hrs: Laboratory Results - last 24 hr 11/04/16 11/04/16 Range/Units 05:41 05:41 WBC 6.3 (4.5-11.0) K/uL RBC 4.28 (3.30-5.50) M/uL Hgb 10.9 L (12.0-15.0) g/dL Hct 37.5 (36.0-48.0) % MCV 88 (80-98) fL MCH 26 L (27-31) pg MCHC 29 L (32-36) % Plt Count 288 (150-400) K/uL Sodium 144 (140-148) mmol/L Potassium 3.9 (3.6-5.2) mmol/L Chloride 96 L (100-108) mmol/L Carbon Dioxide 45 H (21-32) mmol/L Anion Gap 6.9 (5.0-14.0) mmol/L BUN 23 H (7-18) mg/dL Creatinine 0.8 (0.6-1.0) mg/dL Est Cr Clr Drug Dosing 68.63 mL/min Estimated GFR (MDRD) > 60 (>60) Glucose 190 H (74-106) mg/dL Calcium 9.4 (8.5-10.1) mg/dL Frank Results last 24 hrs: Microbiology 10/31/16 04:09 Aerobic Blood Culture - Preliminary Blood - Venous - Lab Draw NO GROWTH AFTER 4 DAYS Anaerobic Blood Culture - Preliminary NO GROWTH AFTER 4 DAYS Med Orders - Current: Current Medications Acetaminophen (Tylenol) 650 mg PO Q4H PRN PRN Reason: Pain (Mild 1-3)/fever Last Admin: 11/04/16 11:44 Dose: 650 mg Albuterol (Proventil Neb Soln) 2.5 mg NEB Q4H PRN PRN Reason: Shortness Of Breath/wheezing Last Admin: 11/02/16 14:36 Dose: 2.5 mg Albuterol/Ipratropium (Duoneb 3.0-0.5 Mg/3 Ml) 3 ml INH QIDRT [facility] Last Admin: 11/04/16 11:06 Dose: 3 ml Aspirin (Aspirin) 81 mg PO DAILY [facility] Last Admin: 11/04/16 08:04 Dose: 81 mg Azathioprine (Imuran) 150 mg PO DAILY [facility] Last Admin: 11/04/16 08:09 Dose: 150 mg Bumetanide (Bumex) 3 mg PO BIDDIURETIC [facility] Last Admin: 11/04/16 07:58 Dose: 3 mg Cyclobenzaprine HCl (Flexeril) 10 mg PO TID PRN PRN Reason: Pain Dextrose (Glutose 15) 15 gm PO ONETIME PRN PRN Reason: Hypoglycemia Dextrose/Water (Dextrose 50% In Water) 50 ml IV ONETIME PRN PRN Reason: Hypoglycemia Docusate Sodium (Colace) 100 mg PO BID PRN PRN Reason: Constipation Last Admin: 11/03/16 21:40 Dose: 100 mg Enoxaparin Sodium (Lovenox) 40 mg SUBCUT DAILY [facility] Last Admin: 11/04/16 08:02 Dose: 40 mg Escitalopram Oxalate (Lexapro) 30 mg PO BEDTIME [facility] Last Admin: 11/03/16 21:34 Dose: 30 mg Ferrous Sulfate (Ferrous Sulfate) 325 mg PO DAILY [facility] Last Admin: 11/04/16 08:05 Dose: 325 mg Gabapentin (Neurontin) 300 mg PO BID [facility] Last Admin: 11/04/16 08:12 Dose: 300 mg Heparin Sodium (Porcine) (Heparin Lock Flush 100 Units/Ml Syringe) 500 units FLUSH ASDIRECTED PRN PRN Reason: Keep Vein Open Last Admin: 11/04/16 11:44 Dose: 500 units Heparin Sodium (Porcine) (Heparin Lock Flush 100 Units/Ml Syringe) 500 units FLUSH ASDIRECTED PRN PRN Reason: Other Last Admin: 11/02/16 22:43 Dose: 500 units Ceftriaxone Sodium 1 gm/ (Sodium Chloride) 50 mls @ 100 mls/hr IV Q24H [facility] Last Admin: 11/04/16 11:04 Dose: 100 mls/hr Insulin Aspart (Novolog) 10 unit SUBCUT TIDMEALS [facility] Last Admin: 11/04/16 11:41 Dose: 10 units Insulin Aspart (Novolog) 0 unit SUBCUT ASDIRECTED [facility] PRN Reason: Protocol Last Admin: 11/04/16 11:41 Dose: 4 unit Insulin Detemir (Levemir) 36 unit SUBCUT BID [facility] Last Admin: 11/04/16 08:10 Dose: 36 unit Isosorbide Mononitrate (Imdur) 30 mg PO DAILY [facility] Last Admin: 11/04/16 08:06 Dose: 30 mg Lactobacillus Rhamnosus (Culturelle) 1 cap PO BID [facility] Last Admin: 11/04/16 08:04 Dose: 1 cap Lisinopril (Prinivil) 20 mg PO DAILY [facility] Last Admin: 11/04/16 08:13 Dose: 20 mg Lorazepam (Ativan) 0.5 mg PO BID PRN PRN Reason: Anxiety Last Admin: 11/03/16 21:44 Dose: 0.5 mg Magnesium Hydroxide (Milk Of Magnesia) 30 ml PO Q12H PRN PRN Reason: Constipation Last Admin: 11/03/16 21:31 Dose: 30 ml Magnesium Oxide (Magnesium Oxide) 400 mg PO BID [facility] Last Admin: 11/04/16 08:02 Dose: 400 mg Metformin HCl (Glucophage) 850 mg PO BIDMEALS [facility] Last Admin: 11/04/16 08:03 Dose: 850 mg Metoprolol Succinate (Toprol Xl) 25 mg PO BEDTIME [facility] Last Admin: 11/03/16 21:41 Dose: 25 mg Mometasone Furoate/Formoterol Fumar (Dulera 200-5 Mcg) 0 puff IH BID [facility] Last Admin: 11/04/16 08:13 Dose: 2 puff Morphine Sulfate (Morphine) 15 mg PO Q4H PRN PRN Reason: Chest Pain Last Admin: 11/02/16 12:24 Dose: 15 mg Ondansetron HCl (Zofran) 4 mg IV Q4H PRN PRN Reason: Nausea/Vomiting Last Admin: 11/03/16 19:28 Dose: 4 mg Oxybutynin Chloride (Oxybutynin) 5 mg PO BID [facility] Last Admin: 11/04/16 07:59 Dose: 5 mg Oxycodone HCl (Oxycodone) 5 - 10 mg PO Q4H PRN PRN Reason: Pain (moderate 4-6) Last Admin: 11/03/16 12:28 Dose: 10 mg Pantoprazole Sodium (Protonix) 40 mg PO DAILY@0730 [facility] Last Admin: 11/04/16 07:56 Dose: 40 mg Polyethylene Glycol (Miralax) 17 gm PO DAILY PRN PRN Reason: Constipation Potassium Chloride (Klor-Con M20) 20 meq PO BID [facility] Last Admin: 11/04/16 07:59 Dose: 20 meq Prednisone (Prednisone) 20 mg PO DAILY [facility] Last Admin: 11/04/16 08:12 Dose: 20 mg Promethazine HCl (Phenergan) 25 mg PO Q8H PRN PRN Reason: Nausea Simvastatin (Zocor) 10 mg PO BEDTIME [facility] Last Admin: 11/03/16 21:37 Dose: 10 mg Sodium Chloride (Saline Flush) 10 ml FLUSH ASDIRECTED PRN PRN Reason: Keep Vein Open Last Admin: 11/01/16 03:22 Dose: 10 ml Sucralfate (Carafate) 1 gm PO QIDACANDBED [facility] Last Admin: 11/04/16 10:56 Dose: Not Given Trazodone HCl (Trazodone) 50 mg PO BEDTIME [facility] Last Admin: 11/03/16 21:37 Dose: 50 mg [facility] Admin: 11/04/16 07:55 Dose: 180 mg Discontinued Medications Acetaminophen (Tylenol Extra Strength) 1,000 mg PO ONETIME ONE Stop: 10/28/16 17:18 Last Admin: 10/28/16 17:44 Dose: 1,000 mg Albuterol/Ipratropium (Duoneb 3.0-0.5 Mg/3 Ml) 3 ml INH QID [facility] Last Admin: 10/29/16 09:43 Dose: Not Given Bumetanide (Bumex) 4 mg IVPUSH Q12H [facility] Last Admin: 10/31/16 09:51 Dose: 4 mg Escitalopram Oxalate (Lexapro) 30 mg PO BEDTIME [facility] Last Admin: 10/28/16 20:29 Dose: 30 mg Escitalopram Oxalate (Lexapro) Confirm Administered Dose 30 mg .ROUTE .STK-MED ONE Stop: 10/28/16 20:27 Last Admin: 10/28/16 21:09 Dose: Not Given Furosemide (Lasix) 80 mg IVPUSH ONETIME ONE Stop: 10/28/16 16:11 Last Admin: 10/28/16 16:26 Dose: 80 mg Heparin Sodium (Porcine) (Heparin Lock Flush 100 Units/Ml Syringe) 500 units FLUSH ASDIRECTED PRN PRN Reason: Keep Vein Open Last Admin: 10/28/16 16:34 Dose: 500 units Heparin Sodium (Porcine) (Heparin Lock Flush 100 Units/Ml Syringe) Confirm Administered Dose 500 units .ROUTE .STK-MED ONE Stop: 10/29/16 05:03 Last Admin: 10/29/16 07:40 Dose: 500 units Ciprofloxacin/Dextrose 400 mg/ (Premix) 200 mls @ 200 mls/hr IV Q12H [facility] Last Admin: 10/31/16 04:07 Dose: 200 mls/hr Sodium Chloride (Normal Saline) 500 mls @ 500 mls/hr IV .BOLUS ONE Stop: 10/31/16 19:16 Last Admin: 10/31/16 18:50 Dose: 500 mls/hr Vancomycin HCl 2.5 gm/ Sodium (Chloride) 250 mls @ 100 mls/hr IV ONETIME ONE Stop: 11/01/16 13:29 Last Admin: 11/01/16 11:20 Dose: 100 mls/hr Sodium Chloride (Normal Saline) 500 mls @ 500 mls/hr IV ONETIME ONE Stop: 11/01/16 18:44 Last Admin: 11/01/16 17:36 Dose: 500 mls/hr Vancomycin HCl 2,000 mg/ (Sodium Chloride) 250 mls @ 125 mls/hr IV Q12H [facility] Last Admin: 11/02/16 20:17 Dose: 125 mls/hr Ketorolac Tromethamine (Toradol) 15 mg IVPUSH ONETIME ONE Stop: 11/01/16 10:50 Last Admin: 11/01/16 12:41 Dose: 15 mg Metformin HCl (Glucophage) 850 mg PO BID [facility] Last Admin: 10/28/16 20:34 Dose: 850 mg Metformin HCl (Glucophage) 850 mg PO BIDMEALS [facility] Last Admin: 11/01/16 07:29 Dose: 850 mg Mometasone Furoate/Formoterol Fumar (Dulera 200-5 Mcg) 2 puff IH BID [facility] Last Admin: 10/28/16 21:10 Dose: 2 puff Potassium Chloride (Klor-Con M20) 40 meq PO ONETIME ONE Stop: 10/29/16 09:31 Last Admin: 10/29/16 09:40 Dose: 40 meq Potassium Chloride (Klor-Con M20) 40 meq PO ONETIME ONE Stop: 10/29/16 17:46 Last Admin: 10/29/16 17:41 Dose: 40 meq Verapamil HCl (Calan Sr) 180 mg PO BIDAC [facility] Last Admin: 11/02/16 07:35 Dose: 180 mg - Exam Quality Assessment: supplemental oxygen General: alert, oriented, cooperative, no acute distress Neck: supple Lungs: Normal respiratory effort, Rales (few bilateral midlung). No: Wheezing Cardiovascular: Regular Rate, Regular Rhythm Abdomen: soft, no distension Extremities: no edema, no cyanosis Skin: warm, dry Psy/Mental Status: alert, normal affect - Problem List Review Problem List Initiated/Reviewed/Updated: Yes - My Orders Last 24 Hours: My Active Orders 11/03/16 17:00 metFORMIN [Glucophage] 850 mg PO BIDMEALS - Plan Plan:: ASSESSMENT AND PLAN Gram-positive bacteremia, suspected - culture growing staph epidermidis, likely contaminant with only one out of 4 bottles involved. No fevers since vancomycin was discontinued. -Discontinue vancomycin -Continue ceftriaxone as below -Followup cultures -Repeat blood cultures if she has another fever CONGESTIVE HEART FAILURE WITH PRESERVED LEFT VENTRICULAR FUNCTION - no edema and seems to be well compensated at this time. -Bumetanide 3 mg by mouth twice daily -Daily weights -Strict 2 g sodium diet -Accurate I.'s and O.'s -Supplemental oxygen -Continue home medications Acute cystitis - urinalysis suggestive of infection. Culture so far has mixed dennis. Plan to transition to oral medications tomorrow. -Recheck urine culture tomorrow -Continue ceftriaxone Acute kidney injury - creatinine now back to baseline with gentle fluids and holding diuretics. -Monitor urine output COPD -seems to be well compensated at this time with no evidence of acute exacerbation or underlying infection -Continue home medical regimen DIABTETS TYPE 2 - blood sugar control has been stable and acceptable. -Levemir 36 units subcut bid -Novolog 10 units with meals -Sliding scale coverage; moderate dose -Restart metformin CHRONIC PAIN - stable -Continue outpatient medical therapy MAINTENANCE ISSUES -Nutrition: diabetic diet, 2 g sodium diet -Dougherty catheter; catheter removed today -DVT: Enoxaparin 40 mg subcutaneous daily -GI; pantoprazole 40mg daily DISPOSITION; anticipate discharge to home in one or maybe 2 days Saran Bolivar M.D.
[2016-11-04] MEDS: LORazepam 0.5 MG Tab PO PRN (13:38)
[2016-11-04] MEDS: Simvastatin 20 MG Tab PO SCH (21:42)
[2016-11-04] MEDS: traZODone 50 MG Tab PO SCH (21:43)
[2016-11-04] MEDS: Escitalopram 10 MG Tab PO SCH (21:43)
[2016-11-04] MEDS: Metoprolol Succinate 25 MG Tab.ER PO SCH (21:51)
[2016-11-05] MEDS: Sucralfate 1 GM Tab PO SCH ×4 (06:13→20:43)
[2016-11-05] MEDS: Albuterol/Ipratropium 3.0-0.5 MG/3 ML Neb Soln INH SCH ×4 (07:08→20:50)
[2016-11-05] MEDS: Verapamil 180 MG Tab.ER PO SCH (07:52)
[2016-11-05] MEDS: Pantoprazole 40 MG Tab.CR PO SCH (07:52)
[2016-11-05] MEDS: Lactobacillus Rhamnosus GG (Probiotic) Cap PO SCH ×2 (08:09→20:46)
[2016-11-05] MEDS: Aspirin 81 MG Tab.Chew PO SCH (08:09)
[2016-11-05] MEDS: Magnesium Oxide 400 MG Tab PO SCH ×2 (08:09→20:50)
[2016-11-05] MEDS: Oxybutynin 5 MG Tab PO SCH ×2 (08:09→20:52)
[2016-11-05] MEDS: Gabapentin 300 MG Cap PO SCH ×2 (08:09→20:50)
[2016-11-05] MEDS: Ferrous Sulfate 325 MG Tab PO SCH (08:09)
[2016-11-05] MEDS: predniSONE 20 MG Tab PO SCH (08:09)
[2016-11-05] MEDS: Potassium Chloride 20 MEQ Tab.ER PO SCH ×2 (08:09→20:52)
[2016-11-05] MEDS: Insulin Detemir 100 Units/ML 3 ML Pen SUBCUT SCH ×2 (08:13→21:22)
[2016-11-05] MEDS: Insulin Aspart 100 Units/ML 3 ML Pen SUBCUT SCH ×6 (08:13→17:34)
[2016-11-05] MEDS: Enoxaparin 40 MG/0.4 ML Syringe SUBCUT SCH (08:18)
[2016-11-05] MEDS: Formoterol/Mometasone 200-5 MCG 8.8 GM Inhaler IH SCH ×2 (08:20→20:49)
--- NOTE | 2016-11-05 09:35 | PCM.PN ---
- General Info Date of Service: 11/05/16 Functional Status: Reports: pain controlled, tolerating diet, ambulating, urinating - Review of Systems General: Denies: Fever Neurological: Reports: Dizziness Systems Review Comment:: No acute events overnight. No fevers. No new culture results. No complaints of shortness of breath today. Blood pressures do remain on the low side and her blood pressure medications were held last night and this morning. Mild dizziness when blood pressures are on the low side of normal. Blood sugars have been well controlled. - Patient Data Vitals - most recent: Last Vital Signs Temp 37.3 C 11/05/16 07:00 Pulse 86 11/05/16 07:08 Resp 18 11/05/16 07:00 BP 119/57 L 11/05/16 07:00 Pulse Ox 91 L 11/05/16 07:00 Weight - most recent: 132.63 kg I&O - last 24 hours: Intake & Output 11/04/16 11/05/16 11/05/16 22:59 06:59 14:59 Intake Total 1040 420 480 Output Total 1600 800 Balance -560 420 -320 Frank Results last 24 hrs: Microbiology 10/31/16 04:09 Aerobic Blood Culture - Final Blood - Venous - Lab Draw NO GROWTH AFTER 5 DAYS Anaerobic Blood Culture - Final NO GROWTH AFTER 5 DAYS Med Orders - Current: Current Medications Acetaminophen (Tylenol) 650 mg PO Q4H PRN PRN Reason: Pain (Mild 1-3)/fever Last Admin: 11/04/16 11:44 Dose: 650 mg Albuterol (Proventil Neb Soln) 2.5 mg NEB Q4H PRN PRN Reason: Shortness Of Breath/wheezing Last Admin: 11/02/16 14:36 Dose: 2.5 mg Albuterol/Ipratropium (Duoneb 3.0-0.5 Mg/3 Ml) 3 ml INH QIDRT [facility] Last Admin: 11/05/16 07:08 Dose: 3 ml Aspirin (Aspirin) 81 mg PO DAILY [facility] Last Admin: 11/05/16 08:09 Dose: 81 mg Azathioprine (Imuran) 150 mg PO DAILY [facility] Last Admin: 11/05/16 08:12 Dose: 150 mg Bumetanide (Bumex) 3 mg PO BIDDIURETIC [facility] Last Admin: 11/04/16 16:15 Dose: Not Given Cyclobenzaprine HCl (Flexeril) 10 mg PO TID PRN PRN Reason: Pain Dextrose (Glutose 15) 15 gm PO ONETIME PRN PRN Reason: Hypoglycemia Dextrose/Water (Dextrose 50% In Water) 50 ml IV ONETIME PRN PRN Reason: Hypoglycemia Docusate Sodium (Colace) 100 mg PO BID PRN PRN Reason: Constipation Last Admin: 11/03/16 21:40 Dose: 100 mg Enoxaparin Sodium (Lovenox) 40 mg SUBCUT DAILY [facility] Last Admin: 11/05/16 08:18 Dose: 40 mg Escitalopram Oxalate (Lexapro) 30 mg PO BEDTIME [facility] Last Admin: 11/04/16 21:43 Dose: 30 mg Ferrous Sulfate (Ferrous Sulfate) 325 mg PO DAILY [facility] Last Admin: 11/05/16 08:09 Dose: 325 mg Gabapentin (Neurontin) 300 mg PO BID [facility] Last Admin: 11/05/16 08:09 Dose: 300 mg Heparin Sodium (Porcine) (Heparin Lock Flush 100 Units/Ml Syringe) 500 units FLUSH ASDIRECTED PRN PRN Reason: Keep Vein Open Last Admin: 11/04/16 11:44 Dose: 500 units Heparin Sodium (Porcine) (Heparin Lock Flush 100 Units/Ml Syringe) 500 units FLUSH ASDIRECTED PRN PRN Reason: Other Last Admin: 11/02/16 22:43 Dose: 500 units Insulin Aspart (Novolog) 10 unit SUBCUT TIDMEALS [facility] Last Admin: 11/05/16 08:13 Dose: 10 units Insulin Aspart (Novolog) 0 unit SUBCUT ASDIRECTED [facility] PRN Reason: Protocol Last Admin: 11/05/16 08:14 Dose: 6 unit Insulin Detemir (Levemir) 36 unit SUBCUT BID [facility] Last Admin: 11/05/16 08:13 Dose: 36 unit Isosorbide Mononitrate (Imdur) 30 mg PO DAILY [facility] Last Admin: 11/04/16 08:06 Dose: 30 mg Lactobacillus Rhamnosus (Culturelle) 1 cap PO BID [facility] Last Admin: 11/05/16 08:09 Dose: 1 cap Lisinopril (Prinivil) 20 mg PO DAILY [facility] Last Admin: 11/04/16 08:13 Dose: 20 mg Lorazepam (Ativan) 0.5 mg PO BID PRN PRN Reason: Anxiety Last Admin: 11/04/16 13:38 Dose: 0.5 mg Magnesium Hydroxide (Milk Of Magnesia) 30 ml PO Q12H PRN PRN Reason: Constipation Last Admin: 11/03/16 21:31 Dose: 30 ml Magnesium Oxide (Magnesium Oxide) 400 mg PO BID [facility] Last Admin: 11/05/16 08:09 Dose: 400 mg Metformin HCl (Glucophage) 850 mg PO BIDMEALS [facility] Last Admin: 11/05/16 08:09 Dose: 850 mg Metoprolol Succinate (Toprol Xl) 25 mg PO BEDTIME [facility] Last Admin: 11/04/16 21:51 Dose: Not Given Mometasone Furoate/Formoterol Fumar (Dulera 200-5 Mcg) 0 puff IH BID [facility] Last Admin: 11/05/16 08:20 Dose: 2 puff Morphine Sulfate (Morphine) 15 mg PO Q4H PRN PRN Reason: Chest Pain Last Admin: 11/02/16 12:24 Dose: 15 mg Ondansetron HCl (Zofran) 4 mg IV Q4H PRN PRN Reason: Nausea/Vomiting Last Admin: 11/03/16 19:28 Dose: 4 mg Oxybutynin Chloride (Oxybutynin) 5 mg PO BID [facility] Last Admin: 11/05/16 08:09 Dose: 5 mg Oxycodone HCl (Oxycodone) 5 - 10 mg PO Q4H PRN PRN Reason: Pain (moderate 4-6) Last Admin: 11/03/16 12:28 Dose: 10 mg Pantoprazole Sodium (Protonix) 40 mg PO DAILY@0730 [facility] Last Admin: 11/05/16 07:52 Dose: 40 mg Polyethylene Glycol (Miralax) 17 gm PO DAILY PRN PRN Reason: Constipation Potassium Chloride (Klor-Con M20) 20 meq PO BID [facility] Last Admin: 11/05/16 08:09 Dose: 20 meq Prednisone (Prednisone) 20 mg PO DAILY [facility] Last Admin: 11/05/16 08:09 Dose: 20 mg Promethazine HCl (Phenergan) 25 mg PO Q8H PRN PRN Reason: Nausea Simvastatin (Zocor) 10 mg PO BEDTIME [facility] Last Admin: 11/04/16 21:42 Dose: 10 mg Sodium Chloride (Saline Flush) 10 ml FLUSH ASDIRECTED PRN PRN Reason: Keep Vein Open Last Admin: 11/01/16 03:22 Dose: 10 ml Sucralfate (Carafate) 1 gm PO QIDACANDBED [facility] Last Admin: 11/05/16 06:13 Dose: Not Given Trazodone HCl (Trazodone) 50 mg PO BEDTIME [facility] Last Admin: 11/04/16 21:43 Dose: 50 mg Verapamil HCl (Calan Sr) 180 mg PO BIDAC [facility] Last Admin: 11/05/16 07:52 Dose: 180 mg Discontinued Medications Acetaminophen (Tylenol Extra Strength) 1,000 mg PO ONETIME ONE Stop: 10/28/16 17:18 Last Admin: 10/28/16 17:44 Dose: 1,000 mg Albuterol/Ipratropium (Duoneb 3.0-0.5 Mg/3 Ml) 3 ml INH QID [facility] Last Admin: 10/29/16 09:43 Dose: Not Given Bumetanide (Bumex) 4 mg IVPUSH Q12H [facility] Last Admin: 10/31/16 09:51 Dose: 4 mg Escitalopram Oxalate (Lexapro) 30 mg PO BEDTIME [facility] Last Admin: 10/28/16 20:29 Dose: 30 mg Escitalopram Oxalate (Lexapro) Confirm Administered Dose 30 mg .ROUTE .STK-MED ONE Stop: 10/28/16 20:27 Last Admin: 10/28/16 21:09 Dose: Not Given Furosemide (Lasix) 80 mg IVPUSH ONETIME ONE Stop: 10/28/16 16:11 Last Admin: 10/28/16 16:26 Dose: 80 mg Heparin Sodium (Porcine) (Heparin Lock Flush 100 Units/Ml Syringe) 500 units FLUSH ASDIRECTED PRN PRN Reason: Keep Vein Open Last Admin: 10/28/16 16:34 Dose: 500 units Heparin Sodium (Porcine) (Heparin Lock Flush 100 Units/Ml Syringe) Confirm Administered Dose 500 units .ROUTE .STK-MED ONE Stop: 10/29/16 05:03 Last Admin: 10/29/16 07:40 Dose: 500 units Ciprofloxacin/Dextrose 400 mg/ (Premix) 200 mls @ 200 mls/hr IV Q12H [facility] Last Admin: 10/31/16 04:07 Dose: 200 mls/hr Ceftriaxone Sodium 1 gm/ (Sodium Chloride) 50 mls @ 100 mls/hr IV Q24H [facility] Last Admin: 11/04/16 11:04 Dose: 100 mls/hr Sodium Chloride (Normal Saline) 500 mls @ 500 mls/hr IV .BOLUS ONE Stop: 10/31/16 19:16 Last Admin: 10/31/16 18:50 Dose: 500 mls/hr Vancomycin HCl 2.5 gm/ Sodium (Chloride) 250 mls @ 100 mls/hr IV ONETIME ONE Stop: 11/01/16 13:29 Last Admin: 11/01/16 11:20 Dose: 100 mls/hr Sodium Chloride (Normal Saline) 500 mls @ 500 mls/hr IV ONETIME ONE Stop: 11/01/16 18:44 Last Admin: 11/01/16 17:36 Dose: 500 mls/hr Vancomycin HCl 2,000 mg/ (Sodium Chloride) 250 mls @ 125 mls/hr IV Q12H [facility] Last Admin: 11/02/16 20:17 Dose: 125 mls/hr Ketorolac Tromethamine (Toradol) 15 mg IVPUSH ONETIME ONE Stop: 11/01/16 10:50 Last Admin: 11/01/16 12:41 Dose: 15 mg Metformin HCl (Glucophage) 850 mg PO BID [facility] Last Admin: 10/28/16 20:34 Dose: 850 mg Metformin HCl (Glucophage) 850 mg PO BIDMEALS [facility] Last Admin: 11/01/16 07:29 Dose: 850 mg Mometasone Furoate/Formoterol Fumar (Dulera 200-5 Mcg) 2 puff IH BID [facility] Last Admin: 10/28/16 21:10 Dose: 2 puff Potassium Chloride (Klor-Con M20) 40 meq PO ONETIME ONE Stop: 10/29/16 09:31 Last Admin: 10/29/16 09:40 Dose: 40 meq Potassium Chloride (Klor-Con M20) 40 meq PO ONETIME ONE Stop: 10/29/16 17:46 Last Admin: 10/29/16 17:41 Dose: 40 meq Verapamil HCl (Calan Sr) 180 mg PO BIDAC [facility] Last Admin: 11/02/16 07:35 Dose: 180 mg - Exam Quality Assessment: supplemental oxygen General: alert, oriented, cooperative, no acute distress Neck: supple Lungs: Normal respiratory effort, Rales (rare both lung bases) Cardiovascular: Regular Rate, Regular Rhythm Extremities: no edema, no cyanosis Skin: warm, dry Psy/Mental Status: alert, normal affect - Problem List Review Problem List Initiated/Reviewed/Updated: Yes - Plan Plan:: ASSESSMENT AND PLAN Secondary hypertension - blood pressure has been well controlled but we have had to hold blood pressure medications because pressures have been on the low side. She is dizzy when her pressures are on the low side of normal. She did receive verapamil this morning but lisinopril was held. -Hold lisinopril -Continue Imdur, verapamil and beta marsha -Monitor blood pressures, hopefully they will normalize the next 24 hours Gram-positive bacteremia, ruled out - culture growing staph epidermidis, likely contaminant with only one out of 4 bottles involved. No fevers since vancomycin was discontinued. -Repeat blood cultures if she has another fever CONGESTIVE HEART FAILURE WITH PRESERVED LEFT VENTRICULAR FUNCTION - no edema and seems to be well compensated at this time. -Bumetanide 3 mg by mouth twice daily -Daily weights -Strict 2 g sodium diet -Accurate I.'s and O.'s -Supplemental oxygen -Continue home medications Acute cystitis - urinalysis suggestive of infection. Culture so far has mixed dennis. She has completed 5 days of IV antibiotic therapy and this should be adequate. -Discontinue antibiotics and monitor for fevers Acute kidney injury - creatinine now back to baseline. Kidney function stable even after diuretics restarted. -Monitor urine output COPD -seems to be well compensated at this time with no evidence of acute exacerbation or underlying infection -Continue home medical regimen DIABTETS TYPE 2 - blood sugar control has been stable and acceptable. -Levemir 36 units subcut bid -Novolog 10 units with meals -Sliding scale coverage; moderate dose -Restart metformin CHRONIC PAIN - stable -Continue outpatient medical therapy MAINTENANCE ISSUES -Nutrition: diabetic diet, 2 g sodium diet -Dougherty catheter; catheter removed today -DVT: Enoxaparin 40 mg subcutaneous daily -GI; pantoprazole 40mg daily DISPOSITION; anticipate discharge to home tomorrow Saran Bolivar M.D.
[2016-11-05] MEDS: Lisinopril 20 MG Tab PO SCH (11:38)
[2016-11-05] MEDS: Bumetanide 1 MG Tab PO SCH ×2 (11:38→14:42)
[2016-11-05] MEDS: Isosorbide Mononitrate 30 MG Tab.ER PO SCH (11:39)
[2016-11-05] MEDS: Docusate Sodium 100 MG Cap PO PRN (13:19)
[2016-11-05] MEDS: Acetaminophen 325 MG Tab PO PRN ×2 (13:19→22:53)
[2016-11-05] MEDS: LORazepam 0.5 MG Tab PO PRN (16:28)
[2016-11-05] MEDS: Escitalopram 10 MG Tab PO SCH (20:50)
[2016-11-05] MEDS: Simvastatin 20 MG Tab PO SCH (20:53)
[2016-11-05] MEDS: traZODone 50 MG Tab PO SCH (20:54)
[2016-11-05] MEDS: Metoprolol Succinate 25 MG Tab.ER PO SCH (20:58)
[2016-11-05] MEDS ORDERED: Insulin Detemir 100 Units/ML 3 ML Pen SUBCUT ONE ×2 (21:23→21:45)
[2016-11-06] MEDS: Albuterol/Ipratropium 3.0-0.5 MG/3 ML Neb Soln INH SCH ×2 (07:05→10:55)
[2016-11-06] MEDS: Sucralfate 1 GM Tab PO SCH ×2 (08:07→12:50)
[2016-11-06] MEDS: Pantoprazole 40 MG Tab.CR PO SCH (08:23)
[2016-11-06] MEDS: Bumetanide 1 MG Tab PO SCH (08:23)
[2016-11-06] MEDS: Ferrous Sulfate 325 MG Tab PO SCH (08:24)
[2016-11-06] MEDS: Enoxaparin 40 MG/0.4 ML Syringe SUBCUT SCH (08:24)
[2016-11-06] MEDS: Aspirin 81 MG Tab.Chew PO SCH (08:25)
[2016-11-06] MEDS: Lisinopril 20 MG Tab PO SCH (08:25)
[2016-11-06] MEDS: Magnesium Oxide 400 MG Tab PO SCH (08:25)
[2016-11-06] MEDS: Isosorbide Mononitrate 30 MG Tab.ER PO SCH (08:27)
[2016-11-06] MEDS: predniSONE 20 MG Tab PO SCH (08:28)
[2016-11-06] MEDS: Oxybutynin 5 MG Tab PO SCH (08:28)
[2016-11-06] MEDS: Gabapentin 300 MG Cap PO SCH (08:28)
[2016-11-06] MEDS: Insulin Aspart 100 Units/ML 3 ML Pen SUBCUT SCH ×4 (08:29→12:51)
[2016-11-06] MEDS: Verapamil 180 MG Tab.ER PO SCH (08:38)
[2016-11-06] MEDS: Formoterol/Mometasone 200-5 MCG 8.8 GM Inhaler IH SCH (09:02)
[2016-11-06] MEDS: Acetaminophen 325 MG Tab PO PRN (09:24)
[2016-11-06] MEDS: Lactobacillus Rhamnosus GG (Probiotic) Cap PO SCH (09:44)
[2016-11-06] MEDS: Potassium Chloride 20 MEQ Tab.ER PO SCH (09:44)
[2016-11-06] MEDS: Ondansetron 4 MG/2 ML SDV IV PRN (10:11)
[2016-11-06] MEDS: Insulin Detemir 100 Units/ML 3 ML Pen SUBCUT SCH (10:14)
--- NOTE | 2016-11-06 10:36 | PCM.DCSUM1 ---
Discharge Summary - Hospital Course Brief History: 61-year-old female with history of congestive heart failure, insulin-dependent diabetes mellitus, COPD presented with increasing shortness of breath and weight gain and was admitted for management of exacerbation of heart failure. - Discharge Data Discharge Date: 11/06/16 Discharge Disposition: Home, Self-Care 01 Condition: Good - Discharge Diagnosis/Problem(s) (1) Acute exacerbation of congestive heart failure SNOMED Code(s): 25864729 ICD Code: I50.9 - HEART FAILURE, UNSPECIFIED Status: Acute Qualifiers: Congestive heart failure type: unspecified congestive heart failure type Qualified Code(s): I50.9 - Heart failure, unspecified (2) Acute cystitis with negative culture SNOMED Code(s): 287508133 ICD Code: N30.00 - ACUTE CYSTITIS WITHOUT HEMATURIA Status: Acute (3) COPD (chronic obstructive pulmonary disease) SNOMED Code(s): 22755839 ICD Code: J44.9 - CHRONIC OBSTRUCTIVE PULMONARY DISEASE, UNSPECIFIED Status : Chronic Priority: High Qualifiers: COPD type: COPD with acute exacerbation Qualified Code(s): J44.1 - Chronic obstructive pulmonary disease with (acute) exacerbation (4) Diabetes mellitus type 2 SNOMED Code(s): 88883806 ICD Code: E11.9 - TYPE 2 DIABETES MELLITUS WITHOUT COMPLICATIONS Status: Chronic Priority: High - Patient Summary/Data Consults: Consultations 10/28/16 19:38 PT Evaluation and Treatment [CONS] Routine Please Evaluate and Treat. PT Reason for Consult: Strengthening This query below is only for informational purposes and is not editable. Hospital Course: Elizabeth initially presented to the emergency room with significant weight gain and progressive lower extremity edema. She was admitted to the hospital for management of presumed exacerbation of congestive heart failure. She responded very well to diuresis over the first few days with improvement in her weight and return to her baseline weight. Respiratory status improved over that time. No acute events during the first couple of days. Unfortunately the morning on the day when discharge was expected she spiked a high fever. Blood cultures were obtained. Urine sample was obtained and was suggestive of infection. She was empirically started on ceftriaxone and culture was pending at this time. She had difficulty with fever for the first couple of days and one of her 4 blood culture bottles returned positive. We did initiate vancomycin at this point and continued it for 48 hours. Only one of the 4 bottles returned positive and it was for staph epidermidis. This was suspected to be a contaminant and vancomycin was discontinued. She has not had additional fevers since shortly after the vancomycin was initiated. She has completed a total of 5 days of antibiotic therapy for the urinary tract infection which should be more than sufficient. We did have some difficulty with hypotension during the latter half of the hospital stay. This responded fairly well to holding her antihypertensives as well as a couple of fluid challenges. Blood pressures have stabilized by the time of discharge. Blood sugars have been fairly well controlled during the course of the hospital stay. Respiratory status and lower extremity edema have remained stable throughout the course of the second half of the hospital stay when we were dealing with her infection. I believe she is safe for hospital discharge at this time. I don't believe she needs any additional medications beyond her usual home medications. She will resume her usual blood pressure medications and her usual insulin dosing. She would benefit from follow-up in the next week or so with Dr. Issa. Did provide some information for a healthier diet manage both her diabetes and her heart failure. - Patient Instructions Diet: Low Sodium, Diabetic Diet Activity: As Tolerated Showering/Bathing: May Shower Notify Provider of: Fever, Increased Pain, Nausea and/or Vomiting Other/Special Instructions: 1. You were in the hospital for management of congestive heart failure and also a bladder infection and. You have responded well to diuresis and her weight is back down to the dry weight. You have completed 5 days of IV antibiotics for the bladder infection. You do not need any new medications at the time of discharge. 2. Please seek medical attention if you develop fever greater than 101, have worsening of your shortness of breath, gain more than 4 pounds over 2 days or have persistent vomiting or diarrhea. - Discharge Plan Home Medications: Home Meds Albuterol [Ventolin HFA] 2 puff INH ASDIRECTED PRN 03/01/13 [History] Escitalopram [Lexapro] 30 mg PO BEDTIME 03/01/13 [History] Ipratropium/Albuterol Sulfate [Duoneb 0.5 MG-3 MG/3 ML] 3 ml INH QID 03/01/13 [ History] Metoprolol Succinate [Toprol XL] 25 mg PO BEDTIME 03/01/13 [History] Verapamil HCl [Verelan] 180 mg PO BIDAC 03/01/13 [History] Aspirin 81 mg PO DAILY 08/30/13 [History] Simvastatin [Zocor] 10 mg PO BEDTIME 08/30/13 [History] Magnesium Oxide 400 mg PO BID 09/01/13 [History] Lactobacillus Acidophilus [Probiotic] 1 cap PO BID 04/05/14 [History] Cyclobenzaprine [Flexeril] 10 mg PO TID PRN 09/27/14 [History] Folic Acid 1 mg PO DAILY 09/27/14 [History] metFORMIN [Glucophage] 850 mg PO BID 09/27/14 [History] Gabapentin [Neurontin] 300 mg PO BID 03/28/15 [History] Lisinopril 20 mg PO DAILY 03/28/15 [History] Oxybutynin [Oxybutynin ER] 10 mg PO DAILY 03/28/15 [History] Promethazine [Phenergan] 25 mg PO Q8H PRN 03/28/15 [History] traZODone 50 mg PO BEDTIME 03/28/15 [History] Potassium Chloride [Klor-Con M20] 20 meq PO BID #60 tab.er 07/29/15 [Rx] Cyanocobalamin (Vitamin B12) [Vitamin B12] 1,000 mcg IM Q30D 09/26/15 [History] Ergocalciferol (Vitamin D2) [Vitamin D2] 50,000 unit PO WEEKLY 09/26/15 [History ] Ferrous Sulfate 325 mg PO DAILY 09/26/15 [History] Fluticasone/Salmeterol [Advair Diskus 500-50] 1 puff INH BID 12/05/15 [History] azaTHIOprine [Azathioprine] 150 mg PO DAILY 12/05/15 [History] Isosorbide Mononitrate [Isosorbide Mononitrate ER] 30 mg PO DAILY 04/12/16 [ History] Morphine Sulfate 15 mg PO Q4H PRN 04/12/16 [History] Sucralfate [Carafate] 1 gm PO QIDACANDBED 05/10/16 [History] Bumetanide [Bumex] 2 mg PO BID #60 tablet 05/17/16 [Rx] Insulin Aspart [NovoLOG] 10 unit SUBCUT TIDMEALS 06/05/16 [History] Pantoprazole [ProTONIX] 40 mg PO DAILY 07/13/16 [History] Clotrimazole [Mycelex] 10 mg PO DAILY 07/29/16 [History] Insulin Detemir [Levemir Flextouch] 30 units SQ BID #300 ml 08/28/16 [Rx] LORazepam [Ativan] 0.5 mg PO BID PRN #30 tablet 08/28/16 [Rx] Prednisone [IJD: predniSONE] 20 mg PO DAILY 10/28/16 [History] Patient Handouts: Urinary Tract Infection, Adult, [id number] Referrals: Arnulfo Gonsalez MD [Primary Care Provider] - (Follow up with wolfgang Gomez on November 19 @ 2pm Diabetic education with Tia on December 10 @ 1030.) - Discharge Summary/Plan Comment DC Time >30 min.: No (25) - Patient Data Vitals - Most Recent: Last Vital Signs Temp 36.9 C 11/06/16 08:46 Pulse 86 11/06/16 08:46 Resp 16 11/06/16 08:46 BP 117/64 11/06/16 08:46 Pulse Ox 90 L 11/06/16 08:46 Weight - Most Recent: 132.585 kg I&O - Last 24 hours: Intake & Output 11/05/16 11/06/16 11/06/16 22:59 06:59 14:59 Intake Total 1330 480 Output Total 1200 400 Balance 130 80 Med Orders - Current: Current Medications Acetaminophen (Tylenol) 650 mg PO Q4H PRN PRN Reason: Pain (Mild 1-3)/fever Last Admin: 11/06/16 09:24 Dose: 650 mg Albuterol (Proventil Neb Soln) 2.5 mg NEB Q4H PRN PRN Reason: Shortness Of Breath/wheezing Last Admin: 11/02/16 14:36 Dose: 2.5 mg Albuterol/Ipratropium (Duoneb 3.0-0.5 Mg/3 Ml) 3 ml INH QIDRT [facility] Last Admin: 11/06/16 07:05 Dose: 3 ml Aspirin (Aspirin) 81 mg PO DAILY [facility] Last Admin: 11/06/16 08:25 Dose: 81 mg Azathioprine (Imuran) 150 mg PO DAILY [facility] Last Admin: 11/06/16 08:24 Dose: 150 mg Bumetanide (Bumex) 3 mg PO BIDDIURETIC [facility] Last Admin: 11/06/16 08:23 Dose: 3 mg Cyclobenzaprine HCl (Flexeril) 10 mg PO TID PRN PRN Reason: Pain Dextrose (Glutose 15) 15 gm PO ONETIME PRN PRN Reason: Hypoglycemia Dextrose/Water (Dextrose 50% In Water) 50 ml IV ONETIME PRN PRN Reason: Hypoglycemia Docusate Sodium (Colace) 100 mg PO BID PRN PRN Reason: Constipation Last Admin: 11/05/16 13:19 Dose: 100 mg Enoxaparin Sodium (Lovenox) 40 mg SUBCUT DAILY [facility] Last Admin: 11/06/16 08:24 Dose: 40 mg Escitalopram Oxalate (Lexapro) 30 mg PO BEDTIME [facility] Last Admin: 11/05/16 20:50 Dose: 30 mg Ferrous Sulfate (Ferrous Sulfate) 325 mg PO DAILY [facility] Last Admin: 11/06/16 08:24 Dose: 325 mg Gabapentin (Neurontin) 300 mg PO BID [facility] Last Admin: 11/06/16 08:28 Dose: 300 mg Heparin Sodium (Porcine) (Heparin Lock Flush 100 Units/Ml Syringe) 500 units FLUSH ASDIRECTED PRN PRN Reason: Keep Vein Open Last Admin: 11/05/16 21:06 Dose: 500 units Heparin Sodium (Porcine) (Heparin Lock Flush 100 Units/Ml Syringe) 500 units FLUSH ASDIRECTED PRN PRN Reason: Other Last Admin: 11/02/16 22:43 Dose: 500 units Insulin Aspart (Novolog) 10 unit SUBCUT TIDMEALS [facility] Last Admin: 11/06/16 08:29 Dose: 10 units Insulin Aspart (Novolog) 0 unit SUBCUT ASDIRECTED [facility] PRN Reason: Protocol Last Admin: 11/06/16 08:29 Dose: 2 unit Insulin Detemir (Levemir) 36 unit SUBCUT BID [facility] Last Admin: 11/06/16 10:14 Dose: 36 unit Isosorbide Mononitrate (Imdur) 30 mg PO DAILY [facility] Last Admin: 11/06/16 08:27 Dose: 30 mg Lactobacillus Rhamnosus (Culturelle) 1 cap PO BID [facility] Last Admin: 11/06/16 09:44 Dose: 1 cap Lisinopril (Prinivil) 20 mg PO DAILY [facility] Last Admin: 11/06/16 08:25 Dose: 20 mg Lorazepam (Ativan) 0.5 mg PO BID PRN PRN Reason: Anxiety Last Admin: 11/05/16 16:28 Dose: 0.5 mg Magnesium Hydroxide (Milk Of Magnesia) 30 ml PO Q12H PRN PRN Reason: Constipation Last Admin: 11/03/16 21:31 Dose: 30 ml Magnesium Oxide (Magnesium Oxide) 400 mg PO BID [facility] Last Admin: 11/06/16 08:25 Dose: 400 mg Metformin HCl (Glucophage) 850 mg PO BIDMEALS [facility] Last Admin: 11/06/16 08:23 Dose: 850 mg Metoprolol Succinate (Toprol Xl) 25 mg PO BEDTIME [facility] Last Admin: 11/05/16 20:58 Dose: 25 mg Mometasone Furoate/Formoterol Fumar (Dulera 200-5 Mcg) 0 puff IH BID [facility] Last Admin: 11/06/16 09:02 Dose: 2 puff Morphine Sulfate (Morphine) 15 mg PO Q4H PRN PRN Reason: Chest Pain Last Admin: 11/02/16 12:24 Dose: 15 mg Ondansetron HCl (Zofran) 4 mg IV Q4H PRN PRN Reason: Nausea/Vomiting Last Admin: 11/06/16 10:11 Dose: 4 mg Oxybutynin Chloride (Oxybutynin) 5 mg PO BID [facility] Last Admin: 11/06/16 08:28 Dose: 5 mg Oxycodone HCl (Oxycodone) 5 - 10 mg PO Q4H PRN PRN Reason: Pain (moderate 4-6) Last Admin: 11/03/16 12:28 Dose: 10 mg Pantoprazole Sodium (Protonix) 40 mg PO DAILY@0730 [facility] Last Admin: 11/06/16 08:23 Dose: 40 mg Polyethylene Glycol (Miralax) 17 gm PO DAILY PRN PRN Reason: Constipation Potassium Chloride (Klor-Con M20) 20 meq PO BID [facility] Last Admin: 11/06/16 09:44 Dose: 20 meq Prednisone (Prednisone) 20 mg PO DAILY [facility] Last Admin: 11/06/16 08:28 Dose: 20 mg Promethazine HCl (Phenergan) 25 mg PO Q8H PRN PRN Reason: Nausea Simvastatin (Zocor) 10 mg PO BEDTIME [facility] Last Admin: 11/05/16 20:53 Dose: 10 mg Sodium Chloride (Saline Flush) 10 ml FLUSH ASDIRECTED PRN PRN Reason: Keep Vein Open Last Admin: 11/01/16 03:22 Dose: 10 ml Sucralfate (Carafate) 1 gm PO QIDACANDBED [facility] Last Admin: 11/06/16 08:07 Dose: Not Given Trazodone HCl (Trazodone) 50 mg PO BEDTIME [facility] Last Admin: 11/05/16 20:54 Dose: 50 mg Verapamil HCl (Calan Sr) 180 mg PO BIDAC [facility] Last Admin: 11/06/16 08:38 Dose: 180 mg Discontinued Medications Acetaminophen (Tylenol Extra Strength) 1,000 mg PO ONETIME ONE Stop: 10/28/16 17:18 Last Admin: 10/28/16 17:44 Dose: 1,000 mg Albuterol/Ipratropium (Duoneb 3.0-0.5 Mg/3 Ml) 3 ml INH QID [facility] Last Admin: 10/29/16 09:43 Dose: Not Given Bumetanide (Bumex) 4 mg IVPUSH Q12H [facility] Last Admin: 10/31/16 09:51 Dose: 4 mg Escitalopram Oxalate (Lexapro) 30 mg PO BEDTIME [facility] Last Admin: 10/28/16 20:29 Dose: 30 mg Escitalopram Oxalate (Lexapro) Confirm Administered Dose 30 mg .ROUTE .STK-MED ONE Stop: 10/28/16 20:27 Last Admin: 10/28/16 21:09 Dose: Not Given Furosemide (Lasix) 80 mg IVPUSH ONETIME ONE Stop: 10/28/16 16:11 Last Admin: 10/28/16 16:26 Dose: 80 mg Heparin Sodium (Porcine) (Heparin Lock Flush 100 Units/Ml Syringe) 500 units FLUSH ASDIRECTED PRN PRN Reason: Keep Vein Open Last Admin: 10/28/16 16:34 Dose: 500 units Heparin Sodium (Porcine) (Heparin Lock Flush 100 Units/Ml Syringe) Confirm Administered Dose 500 units .ROUTE .STK-MED ONE Stop: 10/29/16 05:03 Last Admin: 10/29/16 07:40 Dose: 500 units Ciprofloxacin/Dextrose 400 mg/ (Premix) 200 mls @ 200 mls/hr IV Q12H [facility] Last Admin: 10/31/16 04:07 Dose: 200 mls/hr Ceftriaxone Sodium 1 gm/ (Sodium Chloride) 50 mls @ 100 mls/hr IV Q24H [facility] Last Admin: 11/04/16 11:04 Dose: 100 mls/hr Sodium Chloride (Normal Saline) 500 mls @ 500 mls/hr IV .BOLUS ONE Stop: 10/31/16 19:16 Last Admin: 10/31/16 18:50 Dose: 500 mls/hr Vancomycin HCl 2.5 gm/ Sodium (Chloride) 250 mls @ 100 mls/hr IV ONETIME ONE Stop: 11/01/16 13:29 Last Admin: 11/01/16 11:20 Dose: 100 mls/hr Sodium Chloride (Normal Saline) 500 mls @ 500 mls/hr IV ONETIME ONE Stop: 11/01/16 18:44 Last Admin: 11/01/16 17:36 Dose: 500 mls/hr Vancomycin HCl 2,000 mg/ (Sodium Chloride) 250 mls @ 125 mls/hr IV Q12H [facility] Last Admin: 11/02/16 20:17 Dose: 125 mls/hr Insulin Detemir (Levemir) 18 unit SUBCUT ONETIME ONE Stop: 11/05/16 21:24 Last Admin: 11/05/16 21:36 Dose: 18 units Insulin Detemir (Levemir) 18 unit SUBCUT ONETIME ONE Stop: 11/05/16 21:46 Last Admin: 11/05/16 21:39 Dose: Not Given Ketorolac Tromethamine (Toradol) 15 mg IVPUSH ONETIME ONE Stop: 11/01/16 10:50 Last Admin: 11/01/16 12:41 Dose: 15 mg Metformin HCl (Glucophage) 850 mg PO BID [facility] Last Admin: 10/28/16 20:34 Dose: 850 mg Metformin HCl (Glucophage) 850 mg PO BIDMEALS [facility] Last Admin: 11/01/16 07:29 Dose: 850 mg Mometasone Furoate/Formoterol Fumar (Dulera 200-5 Mcg) 2 puff IH BID [facility] Last Admin: 10/28/16 21:10 Dose: 2 puff Potassium Chloride (Klor-Con M20) 40 meq PO ONETIME ONE Stop: 10/29/16 09:31 Last Admin: 10/29/16 09:40 Dose: 40 meq Potassium Chloride (Klor-Con M20) 40 meq PO ONETIME ONE Stop: 10/29/16 17:46 Last Admin: 10/29/16 17:41 Dose: 40 meq Verapamil HCl (Calan Sr) 180 mg PO BIDAC [facility] Last Admin: 11/02/16 07:35 Dose: 180 mg *Q Meaningful Use (DIS) - VTE *Q VTE Criteria *Q: - Stroke *Q Stroke Criteria *Q: - AMI *Q AMI Criteria *Q:
[2016-11-06 11:52] VITALS: BP 109/69
== END 2016-11-06 13:00 | disposition home or self-care (01) | DRG 194 ==
LOC: JP.ED 15:19 → JP.MS 18:07
PROVIDERS: ADMIT Hospitalist; ATTEND Internal Medicine
DX: I11.0 Hypertensive heart disease with heart failure (principal); I50.33 Acute on chronic diastolic (congestive) heart failure; E11.9 Type 2 diabetes mellitus without complications; Z79.4 Long term (current) use of insulin; M05.10 Rheumatoid lung disease with rheumatoid arthritis of unspecified site; N30.00 Acute cystitis without hematuria; N17.9 Acute kidney failure, unspecified; G89.29 Other chronic pain; Z87.891 Personal history of nicotine dependence; E53.8 Deficiency of other specified B group vitamins; F32.9 Major depressive disorder, single episode, unspecified; K21.9 Gastro-esophageal reflux disease without esophagitis; Z99.81 Dependence on supplemental oxygen; Z87.01 Personal history of pneumonia (recurrent); H54.7 Unspecified visual loss; Z79.82 Long term (current) use of aspirin; Z79.52 Long term (current) use of systemic steroids; Z88.1 Allergy status to other antibiotic agents; Z96.659 Presence of unspecified artificial knee joint
CPT/HCPCS: 36415; 71010; 71010-26; 80048; 80053; 81001; 82962; 83735; 83880; 84484; 85025; 85027; 87040; 87077; 87086; 87186; 93005; 94640-76; 97116-GP; 97161-GP; 99285; A9270-GY; J0696; J0744; J1642; J1650; J1885; J1940; J2405; J3370; J7040; J7050; J7500; J7620; S0171

== ENCOUNTER 2016-11-16 18:59 | Inpatient (IN) | payer BC, MEDICAID ==
[2016-11-16] MEDS ORDERED: Furosemide 40 MG/4 ML VIAL IVPUSH ONE (20:14)
[2016-11-16] MEDS ORDERED: Morphine 2 MG/ML Syringe IVPUSH ONE (20:14)
--- NOTE | 2016-11-16 20:25 | EDM.PDOC ---
ED HPI GENERAL MEDICAL PROBLEM - General Chief Complaint: Respiratory Problem Stated Complaint: CHEST PRESSURE,SOB Time Seen by Provider: 11/16/16 19:15 Source of Information: Reports: Patient History Limitations: Reports: No Limitations - History of Present Illness INITIAL COMMENTS - FREE TEXT/NARRATIVE: 61 yo CHF/COPD presents to the ER with increase SOB. She was DC from hospital 10 days ago for like symptoms. Extensive hx of CHF. has had a 9# wt gain in 5 days. was seen by PCP three days ago per pt and was recommended admission at that time but Dipti desired to remain at home. Increase in urinary frequency with a sweet smell to urine. denies dysuria has hx of repeat UTI and appt with urology at the end of the month. This evening breathing became for difficult. Very little movement causing severe SOB. Eating and drinking normally. Denies N/V/D Treatments ELECTRONIC FUNDS TRANSFER COORDINATOR: Reports: Other (see below) Other Treatments ELECTRONIC FUNDS TRANSFER COORDINATOR: Home medications chest Pain Score (Numeric/FACES): 9 abdominal pain Pain Score (Numeric/FACES): 7 - Related Data Allergies Allergy/AdvReac Type Severity Reaction Status Date / Time cephalexin monohydrate Allergy Unknown flusing Verified 11/16/16 19:14 [From Keflex] levofloxacin [Levofloxacin] Allergy Rash Verified 11/16/16 19:14 amoxicillin [Amoxicillin] AdvReac Vomiting Verified 11/16/16 19:14 amoxicillin trihydrate AdvReac Vomiting Verified 11/16/16 19:14 [From Augmentin] erythromycin base AdvReac Nausea and Verified 11/16/16 19:14 [Erythromycin Base] Vomiting potassium clavulanate AdvReac Vomiting Verified 11/16/16 19:14 [From Augmentin] Home Meds: Home Meds Albuterol [Ventolin HFA] 2 puff INH ASDIRECTED PRN 03/01/13 [History] Escitalopram [Lexapro] 30 mg PO BEDTIME 03/01/13 [History] Ipratropium/Albuterol Sulfate [Duoneb 0.5 MG-3 MG/3 ML] 3 ml INH QID 03/01/13 [ History] Metoprolol Succinate [Toprol XL] 25 mg PO BEDTIME 03/01/13 [History] Verapamil HCl [Verelan] 180 mg PO BIDAC 03/01/13 [History] Aspirin 81 mg PO DAILY 08/30/13 [History] Simvastatin [Zocor] 10 mg PO BEDTIME 08/30/13 [History] Magnesium Oxide 400 mg PO BID 09/01/13 [History] Lactobacillus Acidophilus [Probiotic] 1 cap PO BID 04/05/14 [History] Cyclobenzaprine [Flexeril] 10 mg PO TID PRN 09/27/14 [History] Folic Acid 1 mg PO DAILY 09/27/14 [History] metFORMIN [Glucophage] 850 mg PO BID 09/27/14 [History] Gabapentin [Neurontin] 300 mg PO BID 03/28/15 [History] Lisinopril 20 mg PO DAILY 03/28/15 [History] Oxybutynin [Oxybutynin ER] 10 mg PO DAILY 03/28/15 [History] Promethazine [Phenergan] 25 mg PO Q8H PRN 03/28/15 [History] traZODone 50 mg PO BEDTIME 03/28/15 [History] Potassium Chloride [Klor-Con M20] 20 meq PO BID #60 tab.er 07/29/15 [Rx] Cyanocobalamin (Vitamin B12) [Vitamin B12] 1,000 mcg IM Q30D 09/26/15 [History] Ergocalciferol (Vitamin D2) [Vitamin D2] 50,000 unit PO WEEKLY 09/26/15 [History ] Ferrous Sulfate 325 mg PO DAILY 09/26/15 [History] Fluticasone/Salmeterol [Advair Diskus 500-50] 1 puff INH BID 12/05/15 [History] azaTHIOprine [Azathioprine] 150 mg PO DAILY 12/05/15 [History] Isosorbide Mononitrate [Isosorbide Mononitrate ER] 30 mg PO DAILY 04/12/16 [ History] Morphine Sulfate 15 mg PO Q4H PRN 04/12/16 [History] Sucralfate [Carafate] 1 gm PO QIDACANDBED 05/10/16 [History] Bumetanide [Bumex] 2 mg PO BID #60 tablet 05/17/16 [Rx] Insulin Aspart [NovoLOG] 10 unit SUBCUT TIDMEALS 06/05/16 [History] Pantoprazole [ProTONIX] 40 mg PO DAILY 07/13/16 [History] Clotrimazole [Mycelex] 10 mg PO ASDIRECTED 07/29/16 [History] Insulin Detemir [Levemir Flextouch] 30 units SQ BID #300 ml 08/28/16 [Rx] LORazepam [Ativan] 0.5 mg PO BID PRN #30 tablet 08/28/16 [Rx] Prednisone [IJD: predniSONE] 20 mg PO DAILY 10/28/16 [History] Past Medical History HEENT History: Reports: Impaired Vision Cardiovascular History: Reports: Hypertension, SOB on Exertion, Other (See Below ) Other Cardiovascular History: diastolic congestive heart failure Respiratory History: Reports: Asthma, Bronchitis, Recurrent, COPD, Pneumonia, Recurrent, SOB, Other (See Below) Other Respiratory History: Home O2 and nebs Gastrointestinal History: Reports: Cholelithiasis, GERD, Other (See Below) Other Gastrointestinal History: history of bezoars Genitourinary History: Reports: Other (See Below) Other Genitourinary History: mass by bladder taken out non cancer GRAPHIC DESIGN SPECIALIST History: Reports: PID, Musculoskeletal History: Reports: Back Pain, Chronic, Osteoarthritis, RA Neurological History: Reports: Migraines Psychiatric History: Reports: Depression Endocrine/Metabolic History: Reports: Diabetes, Type II, Obesity/BMI 30+ Hematologic History: Reports: B12 Deficiency Immunologic History: Reports: Other (See Below) Other Immunologic History: on medication that affects immunity Oncologic (Cancer) History: Reports: None Dermatologic History: Reports: None - Infectious Disease History Infectious Disease History: Reports: Chicken Pox, Measles, Mumps, Rubella - Past Surgical History HEENT Surgical History: Reports: Cataract Surgery, Tonsillectomy Female Surgical History: Reports: Hysterectomy, Tubal Ligation Musculoskeletal Surgical History: Reports: Knee Replacement Social & Family History - Family History HEENT: Reports: Cataract Cardiac: Reports: CAD Respiratory: Reports: Asthma : Reports: Other (See Below) Other Family History: mom kidney CA Musculoskeletal: Reports: Arthritis, RA Neurological: Reports: CVA, Seizure Endocrine/Metabolic: Reports: Diabetes, type II - Tobacco Use Smoking Status *Q: Never Smoker Years of Tobacco use: 15 Packs/Tins Daily: 1 Used Tobacco, but Quit: Yes Month Tobacco Last Used: 35 years Second Hand Smoke Exposure: No - Caffeine Use Caffeine Use: Reports: Soda Other Caffeine Use: 3 bottles a day - Alcohol Use Days Per Week of Alcohol Use: 0 - Recreational Drug Use Recreational Drug Use: No - Living Situation & Occupation Living situation: Reports: , with Spouse ED ROS GENERAL - Review of Systems Review Of Systems: See Below Constitutional: Denies: Fever, Chills Respiratory: Reports: Shortness of Breath, Cough. Denies: Wheezing Cardiovascular: Reports: Edema. Denies: Chest Pain GI/Abdominal: Reports: Abdominal Pain ED EXAM, GENERAL - Physical Exam Exam: See Below Exam Limited By: No Limitations General Appearance: Alert, WD/WN, Mild Distress Ears: Normal External Exam, Normal Canal, Normal TMs Ear Exam: Bilateral Ear: Auricle Normal, Canal Normal, TM normal Nose: Normal Inspection Throat/Mouth: Normal Inspection, Normal Lips, Normal Teeth, Normal Gums, Normal Oropharynx, No Airway Compromise Head: Atraumatic, Normocephalic Respiratory/Chest: No Accessory Muscle Use, Decreased Breath Sounds, Rales ( bilateral ) Cardiovascular: Regular Rate, Rhythm, No Murmur, Other (1+ bilateral LE edema) GI/Abdominal: Normal Bowel Sounds, Soft, No Organomegaly, Tender (mild lower ABD / suprapubic pain) Back Exam: Normal Inspection, Full Range of Motion. No: CVA Tenderness (R), CVA Tenderness (L) Neurological: Alert, Oriented Psychiatric: Normal Affect, Normal Mood Skin Exam: Warm, Dry, Intact Lymphatic: No Adenopathy Course - Vital Signs Last Recorded V/S: Last Vital Signs Temp 37.9 C 11/16/16 19:38 Pulse 82 11/16/16 20:11 Resp 18 11/16/16 19:38 BP 141/76 H 11/16/16 21:18 Pulse Ox 91 L 11/16/16 20:11 - Orders/Labs/Meds Orders: Active Orders 24 hr Category Date Time Status Chest 2V [CR] Stat Exams 11/16/16 20:13 Taken Labs: Laboratory Tests 11/16/16 11/16/16 11/16/16 Range/Units 20:04 20:31 20:31 WBC 13.5 H (4.5-11.0) K/uL RBC 4.12 (3.30-5.50) M/uL Hgb 10.5 L (12.0-15.0) g/dL Hct 36.1 (36.0-48.0) % MCV 88 (80-98) fL MCH 26 L (27-31) pg MCHC 29 L (32-36) % Plt Count 346 (150-400) K/uL Neut % (Auto) 86 H (36-66) % Lymph % (Auto) 9 L (24-44) % [place] % (Auto) 5 (2-6) % Eos % (Auto) 0 L (2-4) % Baso % (Auto) 0 (0-1) % Sodium 145 (140-148) mmol/L Potassium 4.3 (3.6-5.2) mmol/L Chloride 106 (100-108) mmol/L Carbon Dioxide 32 (21-32) mmol/L Anion Gap 7.5 (5.0-14.0) mmol/L BUN 16 (7-18) mg/dL Creatinine 0.9 (0.6-1.0) mg/dL Est Cr Clr Drug Dosing 59.89 mL/min Estimated GFR (MDRD) > 60 (>60) Glucose 162 H (74-106) mg/dL Calcium 8.8 (8.5-10.1) mg/dL Total Bilirubin 0.2 (0.2-1.0) mg/dL AST 9 L (15-37) U/L ALT 15 (12-78) U/L Alkaline Phosphatase 79 (46-116) U/L [id number] Pept 194 H (5-125) pg/mL Total Protein 6.2 L (6.4-8.2) g/dL Albumin 3.2 L (3.4-5.0) g/dL Globulin 3.0 (2.3-3.5) g/dL Albumin/Globulin Ratio 1.1 L (1.2-2.2) Urine Color Yellow Urine Appearance Cloudy Urine pH 5.0 (4.5-8.0) Ur Specific [place] 1.015 (1.008-1.030) Urine Protein Negative (NEGATIVE) mg/dL Urine Glucose (UA) 250 H (NEGATIVE) mg/dL Urine Ketones 15 H (NEGATIVE) mg/dL Urine Occult Blood Trace (NEGATIVE) Urine Nitrite Negative (NEGATIVE) Urine Bilirubin Negative (NEGATIVE) Urine Urobilinogen Normal (NORMAL) mg/dL Ur Leukocyte Esterase Negative (NEGATIVE) Urine RBC 0-5 (0-5) Urine WBC 5-10 H (0-5) Ur Epithelial Cells Moderate Amorphous Sediment Few Urine Bacteria Moderate Urine Mucus Few Meds: Medications Discontinued Medications Generic Name Dose Route Start Last Admin Trade Name Leon PRN Reason Stop Dose Admin Furosemide 40 mg 11/16/16 20:14 11/16/16 21:18 Lasix IVPUSH 11/16/16 20:15 40 mg ONETIME ONE Administration Morphine Sulfate 1 mg 11/16/16 20:14 11/16/16 21:19 Morphine IVPUSH 11/16/16 20:15 1 mg ONETIME ONE Administration - Re-Assessments/Exams Free Text/Narrative Re-Assessment/Exam: 11/16/16 22:50 pt does not feel that she can go home. She continues to be very SOB with any activity. mildly elevated WBC, CMP only 175. will admit for observation Florinda Carlisle notified Departure - Departure Time of Disposition: 22:52 Disposition: Admitted As Inpatient 64 Condition: Good Clinical Impression: COPD exacerbation Chronic respiratory failure Qualifiers: Respiratory failure complication: hypoxia Qualified Code(s): J96.11 - Chronic respiratory failure with hypoxia Acute exacerbation of congestive heart failure Qualifiers: Congestive heart failure type: unspecified congestive heart failure type Qualified Code(s): I50.9 - Heart failure, unspecified - Discharge Information Forms: ED Department Discharge - My Orders Last 24 Hours: My Active Orders 11/16/16 20:13 Chest 2V [CR] Stat - Assessment/Plan Last 24 Hours: My Active Orders 11/16/16 20:13 Chest 2V [CR] Stat
[2016-11-16] MEDS ORDERED: Zolpidem 5 MG Tab PO PRN (23:42)
[2016-11-16] MEDS ORDERED: LORazepam 2 MG/ML MDV IV PRN (23:42)
[2016-11-16] MEDS ORDERED: Sodium Chloride 0.9% 10 ML Syringe FLUSH PRN (23:42)
[2016-11-16] MEDS ORDERED: Ondansetron 4 MG Tab.DIS PO PRN (23:42)
[2016-11-16] MEDS ORDERED: Docusate Sodium 100 MG Cap PO PRN (23:42)
[2016-11-16] MEDS ORDERED: Bisacodyl 5 MG Tab PO PRN (23:42)
[2016-11-16] MEDS ORDERED: Ibuprofen 600 MG Tab PO PRN (23:42)
[2016-11-16] MEDS ORDERED: Albuterol 0.083% 2.5 MG/3 ML Neb Soln NEB PRN (23:42)
[2016-11-16] MEDS ORDERED: cefTRIAXone 1 GM in Sodium Chloride 0.9% 50 ML IV SCH (23:42)
[2016-11-16] MEDS ORDERED: Cyclobenzaprine 10 MG Tab PO PRN (23:42)
[2016-11-16] MEDS ORDERED: Acetaminophen 325 MG Tab PO PRN (23:42)
[2016-11-16] MEDS ORDERED: Ondansetron 4 MG/2 ML SDV IV PRN (23:42)
--- NOTE | 2016-11-17 00:22 | PCM.HP ---
H&P History of Present Illness - General Date of Service: 11/16/16 Admit Problem/Dx: Admission Diagnosis/Problem Admission Diagnosis/Problem COPD, Severe chronic obstructive pulmonary disease Source of Information: Patient, Provider, RN, RN Notes Reviewed History Limitations: Reports: No Limitations - History of Present Illness Initial Comments - Free Text/Narative: 61 yo CHF/COPD presents to the ER with increase SOB. She was DC from hospital 10 days ago for like symptoms. Extensive hx of CHF. has had a 9# wt gain in 5 days. was seen by PCP three days ago per pt and was recommended admission at that time but Dipti desired to remain at home. Increase in urinary frequency with a sweet smell to urine. denies dysuria has hx of repeat UTI and appt with urology at the end of the month. This evening breathing became for difficult. Very little movement causing severe SOB. Eating and drinking normally. Denies N/V/D Treatments TOURIST HOME KEEPER: Reports: Other (see below) Other Treatments TOURIST HOME KEEPER: Home medications chest Pain Score (Numeric/FACES): 9 11/16/16 22:50 pt does not feel that she can go home. She continues to be very SOB with any activity. mildly elevated WBC, CMP only 175. will admit for observation Florinda Clement notified Onset of Symptoms: Reports: Gradual Duration of Symptoms: Reports: Day(s): (six), Getting Worse Location: Reports: Generalized (shortness of breath) Quality: Reports: Same as Previous Episode Improves with: Reports: Rest Worsens with: Reports: Movement Context: Reports: Other (chronic diease of heart and lungs) Associated Symptoms: Reports: Cough, Malaise, Shortness of Breath chest Pain Score (Numeric/FACES): 9 abdominal pain Pain Score (Numeric/FACES): 7 - Related Data Allergies/Adverse Reactions: Allergies Allergy/AdvReac Type Severity Reaction Status Date / Time cephalexin monohydrate Allergy Unknown flusing Verified 11/16/16 19:14 [From Keflex] levofloxacin [Levofloxacin] Allergy Rash Verified 11/16/16 19:14 amoxicillin [Amoxicillin] AdvReac Vomiting Verified 11/16/16 19:14 amoxicillin trihydrate AdvReac Vomiting Verified 11/16/16 19:14 [From Augmentin] erythromycin base AdvReac Nausea and Verified 11/16/16 19:14 [Erythromycin Base] Vomiting potassium clavulanate AdvReac Vomiting Verified 11/16/16 19:14 [From Augmentin] Home Medications: Home Meds Albuterol [Ventolin HFA] 2 puff INH ASDIRECTED PRN 03/01/13 [History] Escitalopram [Lexapro] 30 mg PO BEDTIME 03/01/13 [History] Ipratropium/Albuterol Sulfate [Duoneb 0.5 MG-3 MG/3 ML] 3 ml INH QID 03/01/13 [ History] Metoprolol Succinate [Toprol XL] 25 mg PO BEDTIME 03/01/13 [History] Verapamil HCl [Verelan] 180 mg PO BIDAC 03/01/13 [History] Aspirin 81 mg PO DAILY 08/30/13 [History] Simvastatin [Zocor] 10 mg PO BEDTIME 08/30/13 [History] Magnesium Oxide 400 mg PO BID 09/01/13 [History] Lactobacillus Acidophilus [Probiotic] 1 cap PO BID 04/05/14 [History] Cyclobenzaprine [Flexeril] 10 mg PO TID PRN 09/27/14 [History] Folic Acid 1 mg PO DAILY 09/27/14 [History] metFORMIN [Glucophage] 850 mg PO BID 09/27/14 [History] Gabapentin [Neurontin] 300 mg PO BID 03/28/15 [History] Lisinopril 20 mg PO DAILY 03/28/15 [History] Oxybutynin [Oxybutynin ER] 10 mg PO DAILY 03/28/15 [History] Promethazine [Phenergan] 25 mg PO Q8H PRN 03/28/15 [History] traZODone 50 mg PO BEDTIME 03/28/15 [History] Potassium Chloride [Klor-Con M20] 20 meq PO BID #60 tab.er 07/29/15 [Rx] Cyanocobalamin (Vitamin B12) [Vitamin B12] 1,000 mcg IM Q30D 09/26/15 [History] Ergocalciferol (Vitamin D2) [Vitamin D2] 50,000 unit PO WEEKLY 09/26/15 [History ] Ferrous Sulfate 325 mg PO DAILY 09/26/15 [History] Fluticasone/Salmeterol [Advair Diskus 500-50] 1 puff INH BID 12/05/15 [History] azaTHIOprine [Azathioprine] 150 mg PO DAILY 12/05/15 [History] Isosorbide Mononitrate [Isosorbide Mononitrate ER] 30 mg PO DAILY 04/12/16 [ History] Morphine Sulfate 15 mg PO Q4H PRN 04/12/16 [History] Sucralfate [Carafate] 1 gm PO QIDACANDBED 05/10/16 [History] Bumetanide [Bumex] 2 mg PO BID #60 tablet 05/17/16 [Rx] Insulin Aspart [NovoLOG] 10 unit SUBCUT TIDMEALS 06/05/16 [History] Pantoprazole [ProTONIX] 40 mg PO DAILY 07/13/16 [History] Clotrimazole [Mycelex] 10 mg PO ASDIRECTED 07/29/16 [History] Insulin Detemir [Levemir Flextouch] 30 units SQ BID #300 ml 08/28/16 [Rx] LORazepam [Ativan] 0.5 mg PO BID PRN #30 tablet 08/28/16 [Rx] Prednisone [IJD: predniSONE] 20 mg PO DAILY 10/28/16 [History] Past Medical History HEENT History: Reports: Impaired Vision Cardiovascular History: Reports: Hypertension, SOB on Exertion, Other (See Below ) Other Cardiovascular History: diastolic congestive heart failure Respiratory History: Reports: Asthma, Bronchitis, Recurrent, COPD, Pneumonia, Recurrent, SOB, Other (See Below) Other Respiratory History: Home O2 and nebs Gastrointestinal History: Reports: Cholelithiasis, GERD, Other (See Below) Other Gastrointestinal History: history of bezoars Genitourinary History: Reports: Other (See Below) Other Genitourinary History: mass by bladder taken out non cancer 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, Musculoskeletal History: Reports: Back Pain, Chronic, Osteoarthritis, RA Neurological History: Reports: Migraines Psychiatric History: Reports: Depression Endocrine/Metabolic History: Reports: Diabetes, Type II, Obesity/BMI 30+ Hematologic History: Reports: B12 Deficiency Immunologic History: Reports: Other (See Below) Other Immunologic History: on medication that affects immunity Oncologic (Cancer) History: Reports: None Dermatologic History: Reports: None - Infectious Disease History Infectious Disease History: Reports: Chicken Pox, Measles, Mumps, Rubella - Past Surgical History HEENT Surgical History: Reports: Cataract Surgery, Tonsillectomy Female Surgical History: Reports: Hysterectomy, Tubal Ligation Musculoskeletal Surgical History: Reports: Knee Replacement Social & Family History - Family History HEENT: Reports: Cataract Cardiac: Reports: CAD Respiratory: Reports: Asthma : Reports: Other (See Below) Other Family History: mom kidney CA Musculoskeletal: Reports: Arthritis, RA Neurological: Reports: CVA, Seizure Endocrine/Metabolic: Reports: Diabetes, type II - Tobacco Use Smoking Status *Q: Never Smoker Years of Tobacco use: 15 Packs/Tins Daily: 1 Used Tobacco, but Quit: Yes Month Tobacco Last Used: 35 years Second Hand Smoke Exposure: No - Caffeine Use Caffeine Use: Reports: Soda Other Caffeine Use: 3 bottles a day - Alcohol Use Days Per Week of Alcohol Use: 0 - Recreational Drug Use Recreational Drug Use: No - Living Situation & Occupation Living situation: Reports: , with Spouse H&P Review of Systems - Review of Systems: Review Of Systems: See Below General: Reports: Weakness, Fatigue, Weight Gain (nine pounds) HEENT: Reports: No Symptoms Pulmonary: Reports: Shortness of Breath, Pleuritic Chest Pain, Cough, Sputum Cardiovascular: Reports: No Symptoms Gastrointestinal: Reports: Abdominal Pain (low abdomen) Genitourinary: Reports: Dysuria, Frequency, Burning, Other (odor) Musculoskeletal: Reports: Other (chronic pain) Skin: Reports: No Symptoms Psychiatric: Reports: No Symptoms Neurological: Reports: No Symptoms Hematologic/Lymphatic: Reports: No Symptoms Immunologic: Reports: No Symptoms Exam - Exam Exam: See Below - Vital Signs Vital Signs: Last Vital Signs Temp 36.6 C 11/16/16 23:30 Pulse 76 11/16/16 23:30 Resp 16 11/16/16 23:30 BP 169/79 H 11/16/16 23:30 Pulse Ox 92 L 11/16/16 23:30 Weight: 135.624 kg - Exam Quality Assessment: Supplemental Oxygen General: Alert, Oriented, 4 HEENT: PERRLA, Conjunctiva Clear, EACs Clear, EOMI, Hearing Intact, Mucosa Moist & [place], Normal Nasal Septum, Posterior Pharynx Clear, Pupils Equal, Pupils Reactive Neck: Supple, Trachea Midline Lungs: Normal Respiratory Effort, Decreased Breath Sounds Cardiovascular: Regular Rate, Regular Rhythm, Normal S1, Normal S2 Abdomen: Normal Bowel Sounds, Soft (Female) Exam: Deferred Rectal (Female) Exam: Deferred Back Exam: Normal Inspection Extremities: Normal Inspection, Edema (2+ lower legs) Skin: Warm, Dry, Intact Neurological: Reflexes Equal Bilateral, Strength Equal Bilateral Neuro Extensive - Mental Status: Alert, Oriented x3, Normal Mood/Affect, Normal Cognition Neuro Extensive - Motor, Sensory, Reflexes: Normal Gait, Normal Reflexes Psychiatric: Alert, Normal Affect, Normal Mood - Patient Data Result Diagrams: 11/16/16 20:31 11/16/16 20:31 *Q Meaningful Use (ADM) - VTE *Q VTE Criteria *Q: - Stroke *Q Stroke Criteria *Q: - AMI *Q AMI Criteria *Q: - Problem List (1) COPD exacerbation SNOMED Code(s): 085896823, [id number] ICD Code: J44.1 - CHRONIC OBSTRUCTIVE PULMONARY DISEASE W (ACUTE) EXACERBATION Status: Acute Priority: High Current Visit: Yes (2) CHF (congestive heart failure) SNOMED Code(s): 71850856 ICD Code: I50.9 - HEART FAILURE, UNSPECIFIED Status: Chronic Priority: High Current Visit: Yes Qualifiers: Congestive heart failure type: combined Congestive heart failure chronicity : acute on chronic Qualified Code(s): I50.43 - Acute on chronic combined systolic (congestive) and diastolic (congestive) heart failure Problem List Initiated/Reviewed/Updated: Yes Orders Last 24hrs: Active Orders 24 hr Category Date Time Status Patient Status [ADT] Routine ADT 11/16/16 23:42 Active Communication Order [RC] ASDIRECTED Care 11/16/16 23:42 Active Diabetes Education [RC] Click to Edit Care 11/16/16 23:42 Active Intake and Output [RC] QSHIFT Care 11/16/16 23:42 Active Notify Provider [RC] PRN Care 11/16/16 23:42 Active Oxygen Therapy [RC] ASDIRECTED Care 11/16/16 23:42 Active Oxygen Therapy [RC] PRN Care 11/16/16 23:42 Active RT Aerosol Therapy [RC] ASDIRECTED Care 11/16/16 23:42 Active Up to Chair [RC] QID Care 11/16/16 23:42 Active VTE/DVT Education [RC] Per Unit Routine Care 11/16/16 23:42 Active Vital Signs [RC] Q4H Care 11/16/16 23:42 Active OT Evaluation and Treatment [CONS] Routine Cons 11/16/16 23:42 Active PT Evaluation and Treatment [CONS] Routine Cons 11/16/16 23:42 Active Respiratory Care Assess and Treatment [CONS] Routine Cons 11/16/16 23:42 Active 2 Gram Sodium Diet [DIET] Diet 11/16/16 Breakfast Active Consistent Carbohydrate Diet [DIET] Diet 11/16/16 Breakfast Active BASIC METABOLIC PANEL,BMP [CHEM] AM Lab 11/17/16 05:11 Ordered CBC WITH AUTO DIFF [HEME] AM Lab 11/17/16 05:11 Ordered GLUCOSE POC LAB TO COLLECT [POC] QIDACANDBED Lab 11/17/16 07:30 Ordered GLUCOSE POC LAB TO COLLECT [POC] QIDACANDBED Lab 11/17/16 11:30 Ordered GLUCOSE POC LAB TO COLLECT [POC] QIDACANDBED Lab 11/17/16 16:30 Ordered GLUCOSE POC LAB TO COLLECT [POC] QIDACANDBED Lab 11/17/16 21:00 Ordered GLUCOSE POC LAB TO COLLECT [POC] QIDACANDBED Lab 11/18/16 07:30 Ordered GLUCOSE POC LAB TO COLLECT [POC] QIDACANDBED Lab 11/18/16 11:30 Ordered GLUCOSE POC LAB TO COLLECT [POC] QIDACANDBED Lab 11/18/16 16:30 Ordered GLUCOSE POC LAB TO COLLECT [POC] QIDACANDBED Lab 11/18/16 21:00 Ordered GLUCOSE POC LAB TO COLLECT [POC] QIDACANDBED Lab 11/19/16 07:30 Ordered GLUCOSE POC LAB TO COLLECT [POC] QIDACANDBED Lab 11/19/16 11:30 Ordered GLUCOSE POC LAB TO COLLECT [POC] QIDACANDBED Lab 11/19/16 16:30 Ordered GLUCOSE POC LAB TO COLLECT [POC] QIDACANDBED Lab 11/19/16 21:00 Ordered GLUCOSE POC LAB TO COLLECT [POC] QIDACANDBED Lab 11/20/16 07:30 Ordered GLUCOSE POC LAB TO COLLECT [POC] QIDACANDBED Lab 11/20/16 11:30 Ordered GLUCOSE POC LAB TO COLLECT [POC] QIDACANDBED Lab 11/20/16 16:30 Ordered GLUCOSE POC LAB TO COLLECT [POC] QIDACANDBED Lab 11/20/16 21:00 Ordered GLUCOSE POC LAB TO COLLECT [POC] QIDACANDBED Lab 11/21/16 07:30 Ordered GLUCOSE POC LAB TO COLLECT [POC] QIDACANDBED Lab 11/21/16 11:30 Ordered GLUCOSE POC LAB TO COLLECT [POC] QIDACANDBED Lab 11/21/16 16:30 Ordered GLUCOSE POC LAB TO COLLECT [POC] QIDACANDBED Lab 11/21/16 21:00 Ordered GLUCOSE POC LAB TO COLLECT [POC] QIDACANDBED Lab 11/22/16 07:30 Ordered GLUCOSE POC LAB TO COLLECT [POC] QIDACANDBED Lab 11/22/16 11:30 Ordered Acetaminophen [Tylenol] Med 11/16/16 23:42 Active 650 mg PO Q4H PRN Albuterol [Proventil Neb Soln] Med 11/16/16 23:42 Active 2.5 mg NEB Q4H PRN Albuterol/Ipratropium [DuoNeb 3.0-0.5 MG/3 ML] Med 11/17/16 06:00 Active 3 ml NEB QID Aspirin Med 11/17/16 09:00 Active 81 mg PO DAILY Bisacodyl [Dulcolax] Med 11/16/16 23:42 Active 5 mg PO DAILY PRN Bumetanide [Bumex] Med 11/17/16 09:00 Active 4 mg IVPUSH BID Clotrimazole [Mycelex] Med 11/16/16 23:42 Pending 10 mg PO ASDIRECTED Cyclobenzaprine [Flexeril] Med 11/16/16 23:42 Active 10 mg PO TID PRN Docusate Sodium [Colace] Med 11/16/16 23:42 Active 100 mg PO BID PRN Escitalopram [Lexapro] Med 11/17/16 21:00 Active 30 mg PO BEDTIME Ferrous Sulfate Med 11/17/16 09:00 Active 325 mg PO DAILY Folic Acid Med 11/17/16 09:00 Active 1 mg PO DAILY Gabapentin [Neurontin] Med 11/17/16 09:00 Active 300 mg PO BID Ibuprofen [Motrin] Med 11/16/16 23:42 Active 600 mg PO Q6H PRN Insulin Aspart [NovoLOG] Med 11/17/16 08:00 Active 10 unit SUBCUT TIDMEALS Insulin Aspart [NovoLOG] Med 11/16/16 23:42 Active See Protocol SUBCUT ASDIRECTED Insulin Detemir [Levemir] Med 11/17/16 09:00 Active 30 unit SUBCUT BID Isosorbide Mononitrate [Imdur] Med 11/17/16 09:00 Active 30 mg PO DAILY LORazepam [Ativan] Med 11/16/16 23:42 Active 0.5 mg PO BID PRN LORazepam [Ativan] Med 11/16/16 23:42 Active 1 mg IV Q6H PRN Lactobacillus Rhamnosus GG [Culturelle] Med 11/17/16 09:00 Active 1 cap PO BID Lisinopril [Prinivil] Med 11/17/16 09:00 Active 20 mg PO DAILY Magnesium Oxide Med 11/17/16 09:00 Active 400 mg PO BID Metoprolol Succinate [Toprol XL] Med 11/17/16 21:00 Active 25 mg PO BEDTIME Morphine Med 11/16/16 23:42 Active 2 mg IVPUSH Q2H PRN Ondansetron [Zofran ODT] Med 11/16/16 23:42 Active 4 mg PO Q6H PRN Ondansetron [Zofran] Med 11/16/16 23:42 Active 4 mg IV Q4H PRN Pantoprazole [ProTONIX] Med 11/17/16 09:00 Active 40 mg PO DAILY Potassium Chloride [Klor-Con M20] Med 11/17/16 08:00 Active 20 meq PO BIDPC Sodium Chloride 0.9% [Saline Flush] Med 11/16/16 23:42 Active 10 ml FLUSH ASDIRECTED PRN Verapamil [Calan SR] Med 11/17/16 07:30 Active 180 mg PO BIDAC Zolpidem [Ambien] Med 11/16/16 23:42 Active 5 mg PO BEDTIME PRN azaTHIOprine [Imuran] Med 11/17/16 09:00 Active 150 mg PO DAILY cefTRIAXone [Rocephin] 1 gm Med 11/16/16 23:42 Active Sodium Chloride 0.9% [Normal Saline] 50 ml IV Q24H metFORMIN [Glucophage] Med 11/17/16 08:00 Active 850 mg PO BIDMEALS methylPREDNISolone Sod Succ [Solu-MEDROL] Med 11/16/16 23:42 Active 62.5 mg IV Q6H oxyCODONE Med 11/16/16 23:42 Active 10 mg PO Q4H PRN traZODone Med 11/17/16 21:00 Active 50 mg PO BEDTIME Saline Lock Insert [OM.PC] Routine Oth 11/16/16 23:42 Ordered Sequential Compression Device [OM.PC] Per Unit Routine Oth 11/16/16 23:42 Ordered Resuscitation Status Routine Resus Stat 11/16/16 23:00 Ordered Medication Orders Acetaminophen (Tylenol) 650 mg PO Q4H PRN PRN Reason: Pain (Mild 1-3)/fever Albuterol (Proventil Neb Soln) 2.5 mg NEB Q4H PRN PRN Reason: Shortness Of Breath/wheezing Albuterol/Ipratropium (Duoneb 3.0-0.5 Mg/3 Ml) 3 ml NEB QID [facility] Aspirin (Aspirin) 81 mg PO DAILY [facility] Azathioprine (Imuran) 150 mg PO DAILY [facility] Bisacodyl (Dulcolax) 5 mg PO DAILY PRN PRN Reason: Constipation Bumetanide (Bumex) 4 mg IVPUSH BID [facility] Clotrimazole (Mycelex) 10 mg PO ASDIRECTED [facility] Cyclobenzaprine HCl (Flexeril) 10 mg PO TID PRN PRN Reason: Pain Docusate Sodium (Colace) 100 mg PO BID PRN PRN Reason: Constipation Escitalopram Oxalate (Lexapro) 30 mg PO BEDTIME [facility] Ferrous Sulfate (Ferrous Sulfate) 325 mg PO DAILY [facility] Folic Acid (Folic Acid) 1 mg PO DAILY [facility] Gabapentin (Neurontin) 300 mg PO BID [facility] Ceftriaxone Sodium 1 gm/ (Sodium Chloride) 50 mls @ 200 mls/hr IV Q24H [facility] Stop: 11/23/16 23:43 Ibuprofen (Motrin) 600 mg PO Q6H PRN PRN Reason: Pain/Fever Insulin Aspart (Novolog) 10 unit SUBCUT TIDMEALS [facility] Insulin Aspart (Novolog) 0 unit SUBCUT ASDIRECTED [facility] PRN Reason: Protocol Insulin Detemir (Levemir) 30 unit SUBCUT BID [facility] Isosorbide Mononitrate (Imdur) 30 mg PO DAILY [facility] Lactobacillus Rhamnosus (Culturelle) 1 cap PO BID [facility] Lisinopril (Prinivil) 20 mg PO DAILY [facility] Lorazepam (Ativan) 1 mg IV Q6H PRN PRN Reason: Nausea/Vomiting Lorazepam (Ativan) 0.5 mg PO BID PRN PRN Reason: Anxiety Magnesium Oxide (Magnesium Oxide) 400 mg PO BID [facility] Metformin HCl (Glucophage) 850 mg PO BIDMEALS [facility] Methylprednisolone Sodium Succinate (Solu-Medrol) 62.5 mg IV Q6H [facility] Metoprolol Succinate (Toprol Xl) 25 mg PO BEDTIME [facility] Morphine Sulfate (Morphine) 2 mg IVPUSH Q2H PRN PRN Reason: Pain (severe 7-10) Ondansetron HCl (Zofran Odt) 4 mg PO Q6H PRN PRN Reason: Nausea able to take PO Ondansetron HCl (Zofran) 4 mg IV Q4H PRN PRN Reason: Nausea/Vomiting Oxycodone HCl (Oxycodone) 10 mg PO Q4H PRN PRN Reason: Pain (moderate 4-6) Pantoprazole Sodium (Protonix) 40 mg PO DAILY [facility] Potassium Chloride (Klor-Con M20) 20 meq PO BIDPC [facility] Sodium Chloride (Saline Flush) 10 ml FLUSH ASDIRECTED PRN PRN Reason: Keep Vein Open Trazodone HCl (Trazodone) 50 mg PO BEDTIME [facility] Verapamil HCl (Calan Sr) 180 mg PO BIDAC [facility] Zolpidem Tartrate (Ambien) 5 mg PO BEDTIME PRN PRN Reason: Sleep Assessment/Plan Comment:: ASSESSMENT / PLAN 61 yo CHF/COPD presents to the ER with increase SOB. She was discharged from hospital 10 days ago for similar symptoms. Extensive hx of CHF. has had a 9# wt gain in 5 days. Mrs. Daniel was seen by PCP., three days ago per pt and was recommended admission at that time but Dipti desired to remain at home. Increase in urinary frequency with a sweet smell to urine. denies dysuria has hx of repeat UTI and appt with urology at the end of the month. This evening breathing became for difficult. Very little movement causing severe SOB. Eating and drinking normally. Denies N/V/D ,Pain Score (Numeric/FACES): 9 11/16/16 22:50 Mrs. Daniel does not feel that she can go home. She continues to be very SOB with any activity. mildly elevated WBC, CMP only 175. will admit for observation Florinda Clement notified. COPD exacerbation -Admit to [address] [place] [address] for further monitoring -Saline lock port for access. -IV Antibiotic; Rocephin 1 gram iv every 24 hours -oxygen via NC at 3 liter -order schedule Duoneb every 6 hour -order Albuterol nebs prn -order Solumedrol 62.5 mg every 6 hours -Advise to notify nurses of any chest pain or other symptoms -And a.m. labs: CBC, BMP CHF -Bumex 4mg IV bid -strict I and O -diet; 2 gram Sodium restriction -continue present medication Diabetes type 2 -blood glucose monitor before meals and at bedtimes -high dose sliding scale coverage -Insulin Novolog 10 units with meals -Insulin Levimir 30 unit in am and pm Maintenance issues -Orders home meds: -Nutrition: Consistent Carb, 2 gram Sodium restricted diet -Dougherty catheter not indicated at this time -DVT: SCD -PPI; Protonix 40mg daily CODE STATUS: Full Admission status: Admit to [address] [place] [address] Admission justification. This patient will be admitted for inpatient services and is medically appropriate meeting medical necessity for inpatient admission as outlined in my documentation. I reasonably expect the patient will require inpatient services that span. Time over 2 midnights. I reasonably expect this patient to be discharged or transferred within 96 hours after admission to the critical access hospital Disposition; home Primary care provider: Dr. Gonsalez
[2016-11-17] MEDS: Morphine 2 MG/ML Syringe IVPUSH PRN ×2 (00:27→09:02)
[2016-11-17] MEDS: methylPREDNISolone Sodium Succinate 40 MG/1 ML SDV IV SCH ×2 (00:31→05:36)
[2016-11-17] MEDS ORDERED: Albuterol/Ipratropium 3.0-0.5 MG/3 ML Neb Soln NEB SCH (06:00)
[2016-11-17] MEDS ORDERED: Verapamil 180 MG Tab.ER PO SCH (07:30)
[2016-11-17] MEDS: Insulin Aspart 100 Units/ML 3 ML Pen SUBCUT SCH ×7 (07:55→21:51)
[2016-11-17] MEDS: Insulin Detemir 100 Units/ML 3 ML Pen SUBCUT SCH ×2 (07:59→21:50)
[2016-11-17] MEDS: Potassium Chloride 20 MEQ Tab.ER PO SCH ×2 (08:42→17:22)
[2016-11-17] MEDS: Aspirin 81 MG Tab.Chew PO SCH (08:42)
[2016-11-17] MEDS: Verapamil 180 MG Tab.ER PO SCH ×2 (08:42→20:03)
[2016-11-17] MEDS: Lactobacillus Rhamnosus GG (Probiotic) Cap PO SCH ×2 (08:43→20:02)
[2016-11-17] MEDS: Ferrous Sulfate 325 MG Tab PO SCH (08:43)
[2016-11-17] MEDS: Isosorbide Mononitrate 30 MG Tab.ER PO SCH (08:44)
[2016-11-17] MEDS: Folic Acid 1 MG Tab PO SCH (08:44)
[2016-11-17] MEDS: Gabapentin 300 MG Cap PO SCH ×2 (08:46→20:04)
[2016-11-17] MEDS: Lisinopril 20 MG Tab PO SCH (08:46)
[2016-11-17] MEDS: Magnesium Oxide 400 MG Tab PO SCH ×2 (08:46→20:04)
[2016-11-17] MEDS: Pantoprazole 40 MG Tab.CR PO SCH (08:47)
[2016-11-17] MEDS ORDERED: Bumetanide 1 MG/4 ML MDV IVPUSH SCH (09:00)
[2016-11-17] MEDS ORDERED: Pantoprazole 40 MG Tab.CR PO SCH (09:00)
[2016-11-17] MEDS ORDERED: Bumetanide 2.5 MG/10 ML MDV IVPUSH SCH (09:00)
[2016-11-17] MEDS: Clotrimazole 10 MG Troche PO SCH ×4 (09:09→21:54)
[2016-11-17] MEDS: Albuterol/Ipratropium 3.0-0.5 MG/3 ML Neb Soln NEB SCH ×3 (10:16→20:01)
--- NOTE | 2016-11-17 10:33 | PCM.PN ---
- General Info Date of Service: 11/17/16 Functional Status: Reports: pain controlled, tolerating diet, urinating - Review of Systems General: Denies: Fever, Weakness, Chills Pulmonary: Reports: shortness of breath. Denies: pleuritic chest pain, cough, sputum, hemoptysis, wheezing Cardiovascular: Reports: Dyspnea on Exertion. Denies: Chest Pain, Palpitations , Orthopnea, PND, Edema Gastrointestinal: Reports: No symptoms Systems Review Comment:: This patient has been stable since admission with good diuresis. Vital signs have been good and she has remained afebrile. - Patient Data Vitals - most recent: Last Vital Signs Temp 96.9 F 11/17/16 07:30 Pulse 81 11/17/16 07:30 Resp 18 11/17/16 07:30 BP 192/91 H 11/17/16 08:49 Pulse Ox 91 L 11/17/16 07:30 Weight - most recent: 294 lb 4.8 oz I&O - last 24 hours: Intake & Output 11/16/16 11/17/16 11/17/16 22:59 06:59 14:59 Intake Total 230 860 Output Total 1400 1300 Balance -1170 -440 Lab Results last 24 hrs: Laboratory Results - last 24 hr 11/17/16 11/17/16 Range/Units 04:25 04:25 WBC 11.7 H (4.5-11.0) K/uL RBC 4.20 (3.30-5.50) M/uL Hgb 11.0 L (12.0-15.0) g/dL Hct 37.0 (36.0-48.0) % MCV 88 (80-98) fL MCH 26 L (27-31) pg MCHC 30 L (32-36) % Plt Count 304 (150-400) K/uL Neut % (Auto) 94 H (36-66) % Lymph % (Auto) 5 L (24-44) % Gillespie % (Auto) 2 (2-6) % Eos % (Auto) 0 L (2-4) % Baso % (Auto) 0 (0-1) % Sodium 144 (140-148) mmol/L Potassium 4.5 (3.6-5.2) mmol/L Chloride 103 (100-108) mmol/L Carbon Dioxide 30 (21-32) mmol/L Anion Gap 10.8 (5.0-14.0) mmol/L BUN 17 (7-18) mg/dL Creatinine 1.0 (0.6-1.0) mg/dL Est Cr Clr Drug Dosing 53.91 mL/min Estimated GFR (MDRD) 56 L (>60) Glucose 314 H (74-106) mg/dL Calcium 9.0 (8.5-10.1) mg/dL Med Orders - Current: Current Medications Acetaminophen (Tylenol) 650 mg PO Q4H PRN PRN Reason: Pain (Mild 1-3)/fever Albuterol (Proventil Neb Soln) 2.5 mg NEB Q4H PRN PRN Reason: Shortness Of Breath/wheezing Last Admin: 11/17/16 01:06 Dose: 2.5 mg Albuterol/Ipratropium (Duoneb 3.0-0.5 Mg/3 Ml) 3 ml NEB QIDRT [facility] Last Admin: 11/17/16 10:16 Dose: 3 ml Aspirin (Aspirin) 81 mg PO DAILY [facility] Last Admin: 11/17/16 08:42 Dose: 81 mg Azathioprine (Imuran) 150 mg PO DAILY [facility] Last Admin: 11/17/16 08:45 Dose: 150 mg Bisacodyl (Dulcolax) 5 mg PO DAILY PRN PRN Reason: Constipation Bumetanide (Bumex) 4 mg PO BIDDIURETIC [facility] Clotrimazole (Mycelex) 10 mg PO 5XDAY [facility] Last Admin: 11/17/16 09:09 Dose: 10 mg Cyclobenzaprine HCl (Flexeril) 10 mg PO TID PRN PRN Reason: Pain Docusate Sodium (Colace) 100 mg PO BID PRN PRN Reason: Constipation Escitalopram Oxalate (Lexapro) 30 mg PO BEDTIME [facility] Ferrous Sulfate (Ferrous Sulfate) 325 mg PO DAILY [facility] Last Admin: 11/17/16 08:43 Dose: 325 mg Folic Acid (Folic Acid) 1 mg PO DAILY [facility] Last Admin: 11/17/16 08:44 Dose: 1 mg Gabapentin (Neurontin) 300 mg PO BID [facility] Last Admin: 11/17/16 08:46 Dose: 300 mg Heparin Sodium (Porcine) (Heparin Lock Flush 100 Units/Ml) 500 units FLUSH ASDIRECTED PRN PRN Reason: IV Use Last Admin: 11/17/16 08:56 Dose: 500 units Insulin Aspart (Novolog) 10 unit SUBCUT TIDMEALS [facility] Last Admin: 11/17/16 07:55 Dose: 10 units Insulin Aspart (Novolog) 0 unit SUBCUT ASDIRECTED [facility] PRN Reason: Protocol Last Admin: 11/17/16 07:56 Dose: 15 units Insulin Detemir (Levemir) 30 unit SUBCUT BID [facility] Last Admin: 11/17/16 07:59 Dose: 30 units Isosorbide Mononitrate (Imdur) 30 mg PO DAILY [facility] Last Admin: 11/17/16 08:44 Dose: 30 mg Lactobacillus Rhamnosus (Culturelle) 1 cap PO BID [facility] Last Admin: 11/17/16 08:43 Dose: 1 cap Lisinopril (Prinivil) 20 mg PO DAILY [facility] Last Admin: 11/17/16 08:46 Dose: 20 mg Lorazepam (Ativan) 1 mg IV Q6H PRN PRN Reason: Nausea/Vomiting Lorazepam (Ativan) 0.5 mg PO BID PRN PRN Reason: Anxiety Magnesium Oxide (Magnesium Oxide) 400 mg PO BID [facility] Last Admin: 11/17/16 08:46 Dose: 400 mg Metformin HCl (Glucophage) 850 mg PO BIDMEALS [facility] Last Admin: 11/17/16 08:41 Dose: 850 mg Metoprolol Succinate (Toprol Xl) 25 mg PO BEDTIME [facility] Ondansetron HCl (Zofran Odt) 4 mg PO Q6H PRN PRN Reason: Nausea able to take PO Last Admin: 11/17/16 02:56 Dose: 4 mg Ondansetron HCl (Zofran) 4 mg IV Q4H PRN PRN Reason: Nausea/Vomiting Oxycodone HCl (Oxycodone) 10 mg PO Q4H PRN PRN Reason: Pain (moderate 4-6) Pantoprazole Sodium (Protonix) 40 mg PO ACBREAKFAST [facility] Last Admin: 11/17/16 08:47 Dose: 40 mg Potassium Chloride (Klor-Con M20) 20 meq PO BIDPC [facility] Last Admin: 11/17/16 08:42 Dose: 20 meq Prednisone (Prednisone) 40 mg PO DAILY [facility] Sodium Chloride (Saline Flush) 10 ml FLUSH ASDIRECTED PRN PRN Reason: Keep Vein Open Trazodone HCl (Trazodone) 50 mg PO BEDTIME [facility] Verapamil HCl (Calan Sr) 180 mg PO BID [facility] Last Admin: 11/17/16 08:42 Dose: 180 mg Zolpidem Tartrate (Ambien) 5 mg PO BEDTIME PRN PRN Reason: Sleep Discontinued Medications Albuterol/Ipratropium (Duoneb 3.0-0.5 Mg/3 Ml) 3 ml NEB QID [facility] Last Admin: 11/17/16 05:29 Dose: 3 ml Bumetanide (Bumex) 4 mg IVPUSH BID [facility] Bumetanide (Bumex) 4 mg IVPUSH BID [facility] Last Admin: 11/17/16 08:49 Dose: 4 mg Furosemide (Lasix) 40 mg IVPUSH ONETIME ONE Stop: 11/16/16 20:15 Last Admin: 11/16/16 21:18 Dose: 40 mg Ceftriaxone Sodium 1 gm/ (Sodium Chloride) 50 mls @ 200 mls/hr IV Q24H [facility] Stop: 11/23/16 23:43 Last Admin: 11/17/16 00:40 Dose: 200 mls/hr Ceftriaxone Sodium 1 gm/ (Sodium Chloride) 50 mls @ 200 mls/hr IV Q24H [facility] Ibuprofen (Motrin) 600 mg PO Q6H PRN PRN Reason: Pain/Fever Methylprednisolone Sodium Succinate (Solu-Medrol) 62.5 mg IV Q6H [facility] Last Admin: 11/17/16 05:36 Dose: 62.5 mg Methylprednisolone Sodium Succinate (Solu-Medrol) 62.5 mg IV Q6H [facility] Morphine Sulfate (Morphine) 1 mg IVPUSH ONETIME ONE Stop: 11/16/16 20:15 Last Admin: 11/16/16 21:19 Dose: 1 mg Morphine Sulfate (Morphine) 2 mg IVPUSH Q2H PRN PRN Reason: Pain (severe 7-10) Last Admin: 11/17/16 09:02 Dose: 2 mg Pantoprazole Sodium (Protonix) 40 mg PO DAILY [facility] Verapamil [facility] (Calan Sr) [facility] Exam Quality Assessment: supplemental oxygen, DVT prophylaxis General: alert, oriented, cooperative, no acute distress Lungs: Decreased breath sounds. No: Crackles, Rales, Rhonchi, Rub, Stridor, Wheezing Cardiovascular: Regular Rate, Regular Rhythm, No Murmurs Abdomen: bowel sounds present, soft, no tenderness, no distension Extremities: no edema Skin: warm, dry, intact - Problem List Review Problem List Initiated/Reviewed/Updated: Yes - My Orders Last 24 Hours: My Active Orders 11/17/16 14:00 Bumetanide [Bumex] 4 mg PO BIDDIURETIC 11/18/16 09:00 predniSONE 40 mg PO DAILY - Plan Plan:: ASSESSMENT / PLAN COPD EXACERBATION-mild with no evidence of significant underlying infection. -Discontinue antibiotic therapy -Discontinue Solu-Medrol -Prednisone 40 mg by mouth daily -oxygen via NC at 3 liter -order schedule Duoneb every 6 hour -order Albuterol nebs prn CHF-relatively mild fluid retention recently, today has no significant peripheral edema -Bumex 4 mg by mouth twice a day -strict I and O -diet; 2 gram Sodium restriction -continue present medication DIABETES TYPE 2 -blood glucose monitor before meals and at bedtimes -high dose sliding scale coverage -Insulin Novolog 10 units with meals -Insulin Levimir 30 unit in am and pm Maintenance issues -Orders home meds: -Nutrition: Consistent Carb, 2 gram Sodium restricted diet -Dougherty catheter not indicated at this time -DVT: Lovenox 40 mg subcutaneous daily -PPI; Protonix 40mg daily CODE STATUS: Full Admission status: Admit to [address] [place] [address] Admission justification. This patient will be admitted for inpatient services and is medically appropriate meeting medical necessity for inpatient admission as outlined in my documentation. I reasonably expect the patient will require inpatient services that span. Time over 2 midnights. I reasonably expect this patient to be discharged or transferred within 96 hours after admission to the critical access hospital Disposition; anticipate discharge to home tomorrow Primary care provider: Dr. Gonsalez
[2016-11-17] MEDS: Enoxaparin 40 MG/0.4 ML Syringe SUBCUT SCH (11:23)
[2016-11-17] MEDS ORDERED: methylPREDNISolone Sodium Succinate 125 MG/2 ML SDV IV SCH (12:00)
[2016-11-17] MEDS: oxyCODONE 5 MG Tab PO PRN ×2 (12:51→21:58)
[2016-11-17] MEDS: Bumetanide 1 MG Tab PO SCH (13:40)
[2016-11-17] MEDS: LORazepam 0.5 MG Tab PO PRN (15:46)
[2016-11-17] MEDS ORDERED: cefTRIAXone 1 GM in Sodium Chloride 0.9% 50 ML IV SCH (20:00)
[2016-11-17] MEDS ORDERED: Escitalopram 20 MG Tab PO SCH (21:00)
[2016-11-17] MEDS ORDERED: traZODone 50 MG Tab PO SCH (21:00)
[2016-11-17] MEDS ORDERED: Metoprolol Succinate 25 MG Tab.ER PO SCH (21:00)
[2016-11-18] MEDS: LORazepam 0.5 MG Tab PO PRN (01:35)
[2016-11-18] MEDS: Albuterol/Ipratropium 3.0-0.5 MG/3 ML Neb Soln NEB SCH ×2 (07:17→10:38)
[2016-11-18] MEDS: Clotrimazole 10 MG Troche PO SCH ×3 (08:15→10:19)
--- NOTE | 2016-11-18 08:37 | CR ---
Chest 2V HISTORY: SOB COMPARISON: 10/28/2016, 10/12/2016 FINDINGS: Lungs appear clear and normally aerated. Borderline cardiomegaly is redemonstrated. No vascular redi stribution or pleural fluid can be seen. Bony structures and soft tissues are unremarkable. Left-karlie ed central venous Port-A-Cath is stable. IMPRESSION: No acute chest abnormality or significant interval change is identified.
[2016-11-18] MEDS: Magnesium Oxide 400 MG Tab PO SCH (08:54)
[2016-11-18] MEDS: Aspirin 81 MG Tab.Chew PO SCH (08:54)
[2016-11-18] MEDS: Bumetanide 1 MG Tab PO SCH (08:55)
[2016-11-18] MEDS: Isosorbide Mononitrate 30 MG Tab.ER PO SCH (08:55)
[2016-11-18] MEDS: Potassium Chloride 20 MEQ Tab.ER PO SCH (08:55)
[2016-11-18] MEDS: Folic Acid 1 MG Tab PO SCH (08:55)
[2016-11-18] MEDS: Verapamil 180 MG Tab.ER PO SCH (08:55)
[2016-11-18] MEDS: Lactobacillus Rhamnosus GG (Probiotic) Cap PO SCH (08:56)
[2016-11-18] MEDS: Ferrous Sulfate 325 MG Tab PO SCH (08:56)
[2016-11-18] MEDS: Pantoprazole 40 MG Tab.CR PO SCH (08:58)
[2016-11-18] MEDS: Gabapentin 300 MG Cap PO SCH (08:59)
[2016-11-18] MEDS ORDERED: predniSONE 20 MG Tab PO SCH (09:00)
[2016-11-18] MEDS: Insulin Aspart 100 Units/ML 3 ML Pen SUBCUT SCH ×4 (09:04→13:08)
[2016-11-18] MEDS: Insulin Detemir 100 Units/ML 3 ML Pen SUBCUT SCH (09:06)
[2016-11-18] MEDS: Lisinopril 20 MG Tab PO SCH (10:20)
--- NOTE | 2016-11-18 10:32 | PCM.DCSUM1 ---
Discharge Summary - Hospital Course Brief History: 61-year-old female with a history of COPD, diastolic congestive heart failure, morbid obesity and diabetes who presented with a 9 pound weight gain and shortness of breath. She was admitted for management of congestive heart failure exacerbation. - Discharge Data Discharge Date: 11/18/16 Discharge Disposition: Home, Self-Care 01 Condition: Fair - Discharge Diagnosis/Problem(s) (1) Acute exacerbation of congestive heart failure SNOMED Code(s): 67694447 ICD Code: I50.9 - HEART FAILURE, UNSPECIFIED Status: Acute Current Visit : Yes Qualifiers: Congestive heart failure type: diastolic Qualified Code(s): I50.33 - Acute on chronic diastolic (congestive) heart failure (2) Diastolic congestive heart failure SNOMED Code(s): 924815156, 724395275 ICD Code: I50.30 - UNSPECIFIED DIASTOLIC (CONGESTIVE) HEART FAILURE Status : Chronic Current Visit: No (3) Diabetes mellitus SNOMED Code(s): 87012617 ICD Code: E11.9 - TYPE 2 DIABETES MELLITUS WITHOUT COMPLICATIONS Status: Chronic Priority: Medium Current Visit: No Qualifiers: Diabetes mellitus type: type 2 Diabetes mellitus complication status: without complication Diabetes mellitus ferry terminal agent insulin use: with ferry terminal agent use Qualified Code(s): E11.9 - Type 2 diabetes mellitus without complications ; Z79.4 - long term care social worker (current) use of insulin (4) COPD (chronic obstructive pulmonary disease) SNOMED Code(s): 03538905 ICD Code: J44.9 - CHRONIC OBSTRUCTIVE PULMONARY DISEASE, UNSPECIFIED Status : Chronic Priority: High Current Visit: No Qualifiers: COPD type: unspecified COPD Qualified Code(s): J44.9 - Chronic obstructive pulmonary disease, unspecified - Patient Summary/Data Consults: Consultations 11/16/16 23:42 OT Evaluation and Treatment [CONS] Routine Please Evaluate and Treat. OT Reason for Consult: Discharge Planning This query below is only for informational purposes and is not editable. PT Evaluation and Treatment [CONS] Routine Please Evaluate and Treat. PT Reason for Consult: Strengthening This query below is only for informational purposes and is not editable. Respiratory Care Assess and Treatment [CONS] Routine Comment: Physician Instructions: Hospital Course: Elizabeth presented to the emergency room with increasing shortness of breath and 9 pound weight gain. Workup in the emergency room was suggestive of a mild CHF exacerbation. Patient was admitted to the hospital for further evaluation and management. She received IV diuresis at the time of admission and had an excellent response with return of her weight to very nearly her dry weight. Her oxygenation has been excellent and she is currently receiving less supplemental oxygen normal. Vital signs have all been. Symptomatically she does not feel dramatically better still has some shortness of breath and occasional chest tightness. she is able to ambulate to the bathroom and back. Appetite has been normal. Sleeping well. No evidence for infection at this time. I don't believe she needs additional steroids beyond her baseline amount at this point. She's had 2 hospitalizations in the past couple of weeks for volume overload and I did elect to increase her Bumex from 2 mg twice a day to 3 mg in the morning and 2 in the afternoon. If she continues to experience weight gain despite the increased dose she will go up to 3 mg twice a day. On the day of discharge she has no peripheral edema and oxygen saturations are in the low to mid 90s on just 2 L of supplemental oxygen which is better than her baseline of 3. She is agreeable to discharge to home at this time. She will be increasing her Bumex dosing starting tomorrow morning. She has follow-up with her primary care later in the day. - Patient Instructions Diet: Heart Healthy Diet, Diabetic Diet Activity: As Tolerated Showering/Bathing: May Shower Notify Provider of: Fever, Increased Pain, Nausea and/or Vomiting Other/Special Instructions: 1. You were in the hospital for management of a mild exacerbation of congestive heart failure with weight gain. You have responded well to IV medications and have been transitioned back to oral medications. There is no evidence for infection at this time. I recommend that you increase your bumetanide (Bumex) to 3 mg in the morning and 2 mg in the afternoon. Please keep track of your weight and increase to 3 mg twice a day if you continue to have a slow weight gain. 2. Resume your home prednisone dose of 20 mg once a day. The next dose is due tomorrow. 3. Followup with Dr. Gonsalez as scheduled this afternoon. 4. Please seek medical attention if you have more than a 4 pound weight gain, increasing shortness of breath or sudden onset of severe chest pain. - Discharge Plan Prescriptions/Med Rec: Bumetanide [Bumex] 2 mg PO ASDIRECTED #60 tablet Home Medications: Home Meds Albuterol [Ventolin HFA] 2 puff INH ASDIRECTED PRN 03/01/13 [History] Escitalopram [Lexapro] 30 mg PO BEDTIME 03/01/13 [History] Ipratropium/Albuterol Sulfate [Duoneb 0.5 MG-3 MG/3 ML] 3 ml INH QID 03/01/13 [ History] Metoprolol Succinate [Toprol XL] 25 mg PO BEDTIME 03/01/13 [History] Verapamil HCl [Verelan] 180 mg PO BIDAC 03/01/13 [History] Aspirin 81 mg PO DAILY 08/30/13 [History] Simvastatin [Zocor] 10 mg PO BEDTIME 08/30/13 [History] Magnesium Oxide 400 mg PO BID 09/01/13 [History] Lactobacillus Acidophilus [Probiotic] 1 cap PO BID 04/05/14 [History] Cyclobenzaprine [Flexeril] 10 mg PO TID PRN 09/27/14 [History] Folic Acid 1 mg PO DAILY 09/27/14 [History] metFORMIN [Glucophage] 850 mg PO BID 09/27/14 [History] Gabapentin [Neurontin] 300 mg PO BID 03/28/15 [History] Lisinopril 20 mg PO DAILY 03/28/15 [History] Oxybutynin [Oxybutynin ER] 10 mg PO DAILY 03/28/15 [History] Promethazine [Phenergan] 25 mg PO Q8H PRN 03/28/15 [History] traZODone 50 mg PO BEDTIME 03/28/15 [History] Potassium Chloride [Klor-Con M20] 20 meq PO BID #60 tab.er 07/29/15 [Rx] Cyanocobalamin (Vitamin B12) [Vitamin B12] 1,000 mcg IM Q30D 09/26/15 [History] Ergocalciferol (Vitamin D2) [Vitamin D2] 50,000 unit PO WEEKLY 09/26/15 [History ] Ferrous Sulfate 325 mg PO DAILY 09/26/15 [History] Fluticasone/Salmeterol [Advair Diskus 500-50] 1 puff INH BID 12/05/15 [History] azaTHIOprine [Azathioprine] 150 mg PO DAILY 12/05/15 [History] Isosorbide Mononitrate [Isosorbide Mononitrate ER] 30 mg PO DAILY 04/12/16 [ History] Morphine Sulfate 15 mg PO Q4H PRN 04/12/16 [History] Sucralfate [Carafate] 1 gm PO QIDACANDBED 05/10/16 [History] Insulin Aspart [NovoLOG] 10 unit SUBCUT TIDMEALS 06/05/16 [History] Pantoprazole [ProTONIX] 40 mg PO DAILY 07/13/16 [History] Clotrimazole [Mycelex] 10 mg PO ASDIRECTED 07/29/16 [History] Insulin Detemir [Levemir Flextouch] 30 units SQ BID #300 ml 08/28/16 [Rx] LORazepam [Ativan] 0.5 mg PO BID PRN #30 tablet 08/28/16 [Rx] Prednisone [IJD: predniSONE] 20 mg PO DAILY 10/28/16 [History] Bumetanide [Bumex] 2 mg PO ASDIRECTED #60 tablet 11/18/16 [Rx] Patient Handouts: Bumetanide tablets, Heart Failure Referrals: Arnulfo Gonsalez MD [Primary Care Provider] - (followup as scheduled this afternoon) - Discharge Summary/Plan Comment DC Time >30 min.: No (25) - Patient Data Vitals - Most Recent: Last Vital Signs Temp 35.7 C 11/18/16 07:00 Pulse 76 11/18/16 07:17 Resp 17 11/18/16 07:00 BP 139/68 11/18/16 10:20 Pulse Ox 96 11/18/16 07:00 Weight - Most Recent: 133.628 kg I&O - Last 24 hours: Intake & Output 11/17/16 11/18/16 11/18/16 22:59 06:59 14:59 Intake Total 355 Output Total 1400 450 Balance -1045 -450 Med Orders - Current: Current Medications Acetaminophen (Tylenol) 650 mg PO Q4H PRN PRN Reason: Pain (Mild 1-3)/fever Albuterol (Proventil Neb Soln) 2.5 mg NEB Q4H PRN PRN Reason: Shortness Of Breath/wheezing Last Admin: 11/17/16 01:06 Dose: 2.5 mg Albuterol/Ipratropium (Duoneb 3.0-0.5 Mg/3 Ml) 3 ml NEB QIDRT [facility] Last Admin: 11/18/16 07:17 Dose: 3 ml Aspirin (Aspirin) 81 mg PO DAILY [facility] Last Admin: 11/18/16 08:54 Dose: 81 mg Azathioprine (Imuran) 150 mg PO DAILY [facility] Last Admin: 11/18/16 08:54 Dose: 150 mg Bisacodyl (Dulcolax) 5 mg PO DAILY PRN PRN Reason: Constipation Bumetanide (Bumex) 4 mg PO BIDDIURETIC [facility] Last Admin: 11/18/16 08:55 Dose: 4 mg Clotrimazole (Mycelex) 10 mg PO 5XDAY [facility] Last Admin: 11/18/16 10:19 Dose: Not Given Cyclobenzaprine HCl (Flexeril) 10 mg PO TID PRN PRN Reason: Pain Docusate Sodium (Colace) 100 mg PO BID PRN PRN Reason: Constipation Enoxaparin Sodium (Lovenox) 40 mg SUBCUT Q24H [facility] Last Admin: 11/17/16 11:23 Dose: 40 mg Escitalopram Oxalate (Lexapro) 30 mg PO BEDTIME [facility] Last Admin: 11/17/16 20:09 Dose: 30 mg Ferrous Sulfate (Ferrous Sulfate) 325 mg PO DAILY [facility] Last Admin: 11/18/16 08:56 Dose: 325 mg Folic Acid (Folic Acid) 1 mg PO DAILY [facility] Last Admin: 11/18/16 08:55 Dose: 1 mg Gabapentin (Neurontin) 300 mg PO BID [facility] Last Admin: 11/18/16 08:59 Dose: 300 mg Heparin Sodium (Porcine) (Heparin Lock Flush 100 Units/Ml) 500 units FLUSH ASDIRECTED PRN PRN Reason: IV Use Last Admin: 11/17/16 08:56 Dose: 500 units Insulin Aspart (Novolog) 10 unit SUBCUT TIDMEALS [facility] Last Admin: 11/18/16 09:04 Dose: 10 units Insulin Aspart (Novolog) 0 unit SUBCUT ASDIRECTED [facility] PRN Reason: Protocol Last Admin: 11/18/16 09:05 Dose: 3 units Insulin Detemir (Levemir) 30 unit SUBCUT BID [facility] Last Admin: 11/18/16 09:06 Dose: 30 units Isosorbide Mononitrate (Imdur) 30 mg PO DAILY [facility] Last Admin: 11/18/16 08:55 Dose: 30 mg Lactobacillus Rhamnosus (Culturelle) 1 cap PO BID [facility] Last Admin: 11/18/16 08:56 Dose: 1 cap Lisinopril (Prinivil) 20 mg PO DAILY [facility] Last Admin: 11/18/16 10:20 Dose: 20 mg Lorazepam (Ativan) 1 mg IV Q6H PRN PRN Reason: Nausea/Vomiting Lorazepam (Ativan) 0.5 mg PO BID PRN PRN Reason: Anxiety Last Admin: 11/18/16 01:35 Dose: 0.5 mg Magnesium Oxide (Magnesium Oxide) 400 mg PO BID [facility] Last Admin: 11/18/16 08:54 Dose: 400 mg Metformin HCl (Glucophage) 850 mg PO BIDMEALS [facility] Last Admin: 11/18/16 08:58 Dose: 850 mg Metoprolol Succinate (Toprol Xl) 25 mg PO BEDTIME [facility] Last Admin: 11/17/16 20:15 Dose: 25 mg Ondansetron HCl (Zofran Odt) 4 mg PO Q6H PRN PRN Reason: Nausea able to take PO Last Admin: 11/17/16 02:56 Dose: 4 mg Ondansetron HCl (Zofran) 4 mg IV Q4H PRN PRN Reason: Nausea/Vomiting Oxycodone HCl (Oxycodone) 10 mg PO Q4H PRN PRN Reason: Pain (moderate 4-6) Last Admin: 11/17/16 21:58 Dose: 10 mg Pantoprazole Sodium (Protonix) 40 mg PO ACBREAKFAST [facility] Last Admin: 11/18/16 08:58 Dose: 40 mg Potassium Chloride (Klor-Con M20) 20 meq PO BIDPC [facility] Last Admin: 11/18/16 08:55 Dose: 20 meq Prednisone (Prednisone) 40 mg PO DAILY [facility] Last Admin: 11/18/16 08:56 Dose: 40 mg Sodium Chloride (Saline Flush) 10 ml FLUSH ASDIRECTED PRN PRN Reason: Keep Vein Open Trazodone HCl (Trazodone) 50 mg PO BEDTIME [facility] Last Admin: 11/17/16 20:04 Dose: 50 mg Verapamil HCl (Calan Sr) 180 mg PO BID [facility] Last Admin: 11/18/16 08:55 Dose: 180 mg Zolpidem Tartrate (Ambien) 5 mg PO BEDTIME PRN PRN Reason: Sleep Discontinued Medications Albuterol/Ipratropium (Duoneb 3.0-0.5 Mg/3 Ml) 3 ml NEB QID [facility] Last Admin: 11/17/16 05:29 Dose: 3 ml Bumetanide (Bumex) 4 mg IVPUSH BID [facility] Bumetanide (Bumex) 4 mg IVPUSH BID [facility] Last Admin: 11/17/16 08:49 Dose: 4 mg Furosemide (Lasix) 40 mg IVPUSH ONETIME ONE Stop: 11/16/16 20:15 Last Admin: 11/16/16 21:18 Dose: 40 mg Ceftriaxone Sodium 1 gm/ (Sodium Chloride) 50 mls @ 200 mls/hr IV Q24H [facility] Stop: 11/23/16 23:43 Last Admin: 11/17/16 00:40 Dose: 200 mls/hr Ceftriaxone Sodium 1 gm/ (Sodium Chloride) 50 mls @ 200 mls/hr IV Q24H [facility] Ibuprofen (Motrin) 600 mg PO Q6H PRN PRN Reason: Pain/Fever Methylprednisolone Sodium Succinate (Solu-Medrol) 62.5 mg IV Q6H [facility] Last Admin: 11/17/16 05:36 Dose: 62.5 mg Methylprednisolone Sodium Succinate (Solu-Medrol) 62.5 mg IV Q6H [facility] Morphine Sulfate (Morphine) 1 mg IVPUSH ONETIME ONE Stop: 11/16/16 20:15 Last Admin: 11/16/16 21:19 Dose: 1 mg Morphine Sulfate (Morphine) 2 mg IVPUSH Q2H PRN PRN Reason: Pain (severe 7-10) Last Admin: 11/17/16 09:02 Dose: 2 mg Pantoprazole Sodium (Protonix) 40 mg PO DAILY [facility] Verapamil HCl (Calan Sr) 180 mg PO BID [facility] *Q Meaningful Use (DIS) - VTE *Q VTE Criteria *Q: - Stroke *Q Stroke Criteria *Q: - AMI *Q AMI Criteria *Q:
[2016-11-18 11:09] VITALS: BP 121/75
[2016-11-18] MEDS: Enoxaparin 40 MG/0.4 ML Syringe SUBCUT SCH (13:10)
== END 2016-11-18 13:45 | disposition home or self-care (01) | DRG 194 ==
LOC: JP.ED 18:59 → JP.2SS 22:59
PROVIDERS: ADMIT Hospitalist; ATTEND Internal Medicine
DX: I11.0 Hypertensive heart disease with heart failure (principal); I50.33 Acute on chronic diastolic (congestive) heart failure; Z79.82 Long term (current) use of aspirin; K21.9 Gastro-esophageal reflux disease without esophagitis; M19.90 Unspecified osteoarthritis, unspecified site; E11.9 Type 2 diabetes mellitus without complications; Z79.4 Long term (current) use of insulin; E66.01 Morbid (severe) obesity due to excess calories; Z68.42 Body mass index [BMI] 45.0-49.9, adult; J96.11 Chronic respiratory failure with hypoxia; J44.1 Chronic obstructive pulmonary disease with (acute) exacerbation; E53.8 Deficiency of other specified B group vitamins; F32.9 Major depressive disorder, single episode, unspecified; M54.9 Dorsalgia, unspecified; G89.29 Other chronic pain; Z87.01 Personal history of pneumonia (recurrent); Z99.81 Dependence on supplemental oxygen; Z87.891 Personal history of nicotine dependence; Z87.440 Personal history of urinary (tract) infections; Z79.52 Long term (current) use of systemic steroids; Z88.1 Allergy status to other antibiotic agents; M06.9 Rheumatoid arthritis, unspecified
CPT/HCPCS: 36415; 71020; 71020-26; 80048; 80053; 81001; 82962; 83880; 85025; 94640-76; 96374; 96375; 97165-GO; 99285-25; A9270-GY; J0696; J1642; J1650; J1940; J2270; J2920; J7050; J7500; J7620; S0171

== ENCOUNTER 2016-11-25 13:51 | Emergency (ER) | payer BC, MEDICAID ==
--- NOTE | 2016-11-25 15:18 | EDM.PDOC ---
ED HPI GENERAL MEDICAL PROBLEM - General Chief Complaint: Respiratory Problem Stated Complaint: LOW ON OXEGYN NOT FEELING WELL Time Seen by Provider: 11/25/16 14:51 Source of Information: Reports: Patient, Family, RN Notes Reviewed History Limitations: Reports: No Limitations - History of Present Illness INITIAL COMMENTS - FREE TEXT/NARRATIVE: 61-year-old female presents emergency department day complaint of shortness of breath, she was sent over by clinic for apparent hypoxic events 85% unfortunately no records are available. She was recently discharged from the hospital about one week ago for COPD exacerbation with congestive heart failure. This she states been doing well however the last couple days she's been more short of breath she states she is fine at rest but under exertion is when she gets significantly short of breath. She states is been taking her medications without difficulty Chest Pain Score (Numeric/FACES): 7 - Related Data Allergies Allergy/AdvReac Type Severity Reaction Status Date / Time cephalexin monohydrate Allergy Unknown flusing Verified 11/25/16 14:26 [From Keflex] levofloxacin [Levofloxacin] Allergy Rash Verified 11/25/16 14:26 amoxicillin [Amoxicillin] AdvReac Vomiting Verified 11/25/16 14:26 amoxicillin trihydrate AdvReac Vomiting Verified 11/25/16 14:26 [From Augmentin] erythromycin base AdvReac Nausea and Verified 11/25/16 14:26 [Erythromycin Base] Vomiting potassium clavulanate AdvReac Vomiting Verified 11/25/16 14:26 [From Augmentin] Home Meds: Home Meds Albuterol [Ventolin HFA] 2 puff INH ASDIRECTED PRN 03/01/13 [History] Escitalopram [Lexapro] 30 mg PO BEDTIME 03/01/13 [History] Ipratropium/Albuterol Sulfate [Duoneb 0.5 MG-3 MG/3 ML] 3 ml INH QID 03/01/13 [ History] Metoprolol Succinate [Toprol XL] 25 mg PO BEDTIME 03/01/13 [History] Verapamil HCl [Verelan] 180 mg PO BIDAC 03/01/13 [History] Aspirin 81 mg PO DAILY 08/30/13 [History] Simvastatin [Zocor] 10 mg PO BEDTIME 08/30/13 [History] Magnesium Oxide 400 mg PO BID 09/01/13 [History] Lactobacillus Acidophilus [Probiotic] 1 cap PO BID 11/04/14 [History] Cyclobenzaprine [Flexeril] 10 mg PO TID PRN 09/27/14 [History] Folic Acid 1 mg PO DAILY 09/27/14 [History] metFORMIN [Glucophage] 850 mg PO BID 09/27/14 [History] Gabapentin [Neurontin] 300 mg PO BID 03/28/15 [History] Lisinopril 20 mg PO DAILY 03/28/15 [History] Oxybutynin [Oxybutynin ER] 10 mg PO DAILY 03/28/15 [History] Promethazine [Phenergan] 25 mg PO Q8H PRN 03/28/15 [History] traZODone 50 mg PO BEDTIME 03/28/15 [History] Potassium Chloride [Klor-Con M20] 20 meq PO BID #60 tab.er 07/29/15 [Rx] Cyanocobalamin (Vitamin B12) [Vitamin B12] 1,000 mcg IM Q30D 09/26/15 [History] Ergocalciferol (Vitamin D2) [Vitamin D2] 50,000 unit PO WEEKLY 09/26/15 [History ] Ferrous Sulfate 325 mg PO DAILY 09/26/15 [History] Fluticasone/Salmeterol [Advair Diskus 500-50] 1 puff INH BID 12/05/15 [History] azaTHIOprine [Azathioprine] 150 mg PO DAILY 12/05/15 [History] Isosorbide Mononitrate [Isosorbide Mononitrate ER] 30 mg PO DAILY 04/12/16 [ History] Sucralfate [Carafate] 1 gm PO QIDACANDBED 05/10/16 [History] Insulin Aspart [NovoLOG] 10 unit SUBCUT TIDMEALS 06/05/16 [History] Pantoprazole [ProTONIX] 40 mg PO DAILY 07/13/16 [History] Clotrimazole [Mycelex] 10 mg PO ASDIRECTED 07/29/16 [History] Insulin Detemir [Levemir Flextouch] 30 units SQ BID #300 ml 08/28/16 [Rx] LORazepam [Ativan] 0.5 mg PO BID PRN #30 tablet 08/28/16 [Rx] Prednisone [IJD: predniSONE] 20 mg PO DAILY 10/28/16 [History] Bumetanide [Bumex] 2 mg PO ASDIRECTED #60 tablet 11/18/16 [Rx] Past Medical History HEENT History: Reports: Impaired Vision Cardiovascular History: Reports: Heart Failure, Hypertension, SOB on Exertion, Other (See Below) Other Cardiovascular History: diastolic congestive heart failure Respiratory History: Reports: Asthma, Bronchitis, Recurrent, COPD, Pneumonia, Recurrent, SOB, Other (See Below) Other Respiratory History: Home O2 and nebs Gastrointestinal History: Reports: Cholelithiasis, GERD, Other (See Below) Other Gastrointestinal History: history of bezoars Genitourinary History: Reports: Urinary Incontinence, Other (See Below) Other Genitourinary History: mass by bladder taken out non cancer [employer] History: Reports: PID, Musculoskeletal History: Reports: Back Pain, Chronic, Osteoarthritis, RA Neurological History: Reports: Migraines Psychiatric History: Reports: Anxiety, Depression, Panic Attack Endocrine/Metabolic History: Reports: Diabetes, Type II, Obesity/BMI 30+ Hematologic History: Reports: B12 Deficiency Immunologic History: Reports: Other (See Below) Other Immunologic History: on medication that affects immunity - Infectious Disease History Infectious Disease History: Reports: Chicken Pox, Measles, Mumps, Rubella - Past Surgical History HEENT Surgical History: Reports: Cataract Surgery, Tonsillectomy GI Surgical History: Reports: Cholecystectomy Female Surgical History: Reports: Breast Biopsy, Hysterectomy, Tubal Ligation Musculoskeletal Surgical History: Reports: Knee Replacement Oncologic Surgical History: Reports: Biopsy of Breast Social & Family History - Family History Family Medical History: Noncontributory HEENT: Reports: Cataract Cardiac: Reports: CAD Respiratory: Reports: Asthma : Reports: Other (See Below) Other Family History: mom kidney CA Musculoskeletal: Reports: Arthritis, RA Neurological: Reports: CVA, Seizure Endocrine/Metabolic: Reports: Diabetes, type II - Tobacco Use Smoking Status *Q: Former Smoker Years of Tobacco use: 15 Packs/Tins Daily: 1 Used Tobacco, but Quit: No Month Tobacco Last Used: 35 years Second Hand Smoke Exposure: No - Caffeine Use Caffeine Use: Reports: Soda Other Caffeine Use: 3 bottles a day - Alcohol Use Days Per Week of Alcohol Use: 0 - Recreational Drug Use Recreational Drug Use: No - Living Situation & Occupation Living situation: Reports: , with Spouse ED ROS GENERAL - Review of Systems Review Of Systems: See Below Constitutional: Reports: No Symptoms HEENT: Reports: No Symptoms Respiratory: Reports: Shortness of Breath. Denies: Cough, Sputum Cardiovascular: Reports: Dyspnea on Exertion. Denies: Chest Pain GI/Abdominal: Reports: No Symptoms : Reports: No Symptoms Musculoskeletal: Reports: No Symptoms Skin: Reports: No Symptoms ED EXAM, GENERAL - Physical Exam Exam: See Below Free Text/Narrative:: General: Female, not in any distress, alert and oriented x3 HEENT: head is atraumatic normocephalic, eyes pupils equal round reactive to light, sclera clear no conjunctivitis appreciated. Ears tympanic membranes clear and matthews landmarks and light reflex are present bilaterally canals are clear. Nose no septal deviation, nares are clear, no blood present. Mouth mucosa is moist and pink no erythema or exudate noted in soft palate, tongue is midline uvula is midline, dentition is intact. Neck: Supple no thyromegaly no tracheal deviation. Nodes: Cervical nodes subclavicular nodes nontender no palpable lymphadenopathy noted. Lungs: Breath sounds are distant on appreciate any adventitious noises CV: Regular rate and rhythm S1 and S2 appreciated no murmurs rubs or gallops noted. Abdomen: Soft, obese, nontender, no palpable masses or organomegaly appreciated , no distention no guarding bowel sounds are present, . Neuro: Cranial nerves II through XII grossly intact Skin: Warm and dry, intact Extremities: +1 edema in located in the lower extremities difficult to appreciate with the obesity Course - Vital Signs Last Recorded V/S: Last Vital Signs Temp 99.3 F 11/25/16 14:32 Pulse 94 11/25/16 14:32 Resp 18 11/25/16 14:32 BP 107/46 L 11/25/16 14:32 Pulse Ox 88 L 11/25/16 14:32 - Orders/Labs/Meds Orders: Active Orders 24 hr Category Date Time Status Cardiac Monitoring [RC] .As Directed Care 11/25/16 15:14 Active EKG Documentation Completion [RC] ASDIRECTED Care 11/25/16 15:14 Active Chest 1V Frontal [CR] Stat Exams 11/25/16 15:14 Taken Heparin Sodium [Heparin Lock Flush 100 Units/ML] Med 11/25/16 15:22 Active 500 units FLUSH ASDIRECTED PRN EKG 12 Lead [EK] Stat Ther 11/25/16 15:14 Ordered Medication Orders Heparin Sodium (Porcine) (Heparin Lock Flush 100 Units/Ml) 500 units FLUSH ASDIRECTED PRN PRN Reason: Keep Vein Open Labs: Laboratory Tests 11/25/16 11/25/16 Range/Units 15:31 15:31 WBC 12.4 H (4.5-11.0) K/uL RBC 4.31 (3.30-5.50) M/uL Hgb 11.4 L (12.0-15.0) g/dL Hct 37.6 (36.0-48.0) % MCV 87 (80-98) fL MCH 27 (27-31) pg MCHC 30 L (32-36) % Plt Count 269 (150-400) K/uL Neut % (Auto) 88 H (36-66) % Lymph % (Auto) 6 L (24-44) % [place] % (Auto) 5 (2-6) % Eos % (Auto) 1 L (2-4) % Baso % (Auto) 0 (0-1) % Sodium 135 L (140-148) mmol/L Potassium 4.0 (3.6-5.2) mmol/L Chloride 100 (100-108) mmol/L Carbon Dioxide 31 (21-32) mmol/L Anion Gap 8.0 (5.0-14.0) mmol/L BUN 17 (7-18) mg/dL Creatinine 0.9 (0.6-1.0) mg/dL Est Cr Clr Drug Dosing 60.22 mL/min Estimated GFR (MDRD) > 60 (>60) Glucose 183 H (74-106) mg/dL Calcium 8.9 (8.5-10.1) mg/dL Total Bilirubin 0.2 (0.2-1.0) mg/dL AST 9 L (15-37) U/L ALT 15 (12-78) U/L Alkaline Phosphatase 74 (46-116) U/L Troponin I < 0.017 (0.000-0.056) ng/mL [id number] Pept 505 H (5-125) pg/mL Total Protein 6.1 L (6.4-8.2) g/dL Albumin 3.1 L (3.4-5.0) g/dL Globulin 3.0 (2.3-3.5) g/dL Albumin/Globulin Ratio 1.0 L (1.2-2.2) Meds: Medications Generic Name Dose Route Start Last Admin Trade Name Freq PRN Reason Stop Dose Admin Heparin Sodium (Porcine) 500 units 11/25/16 15:22 Heparin Lock Flush 100 Units/Ml FLUSH ASDIRECTED PRN Keep Vein Open Discontinued Medications Generic Name Dose Route Start Last Admin Trade Name Freq PRN Reason Stop Dose Admin Morphine Sulfate 2 mg 11/25/16 16:29 Morphine IVPUSH 11/25/16 16:30 ONETIME ONE Departure - Departure Time of Disposition: 16:33 Disposition: Home, Self-Care 01 Condition: Fair Clinical Impression: CHF (congestive heart failure) Qualifiers: Congestive heart failure type: combined Congestive heart failure chronicity: acute on chronic Qualified Code(s): I50.43 - Acute on chronic combined systolic (congestive) and diastolic (congestive) heart failure - Discharge Information Forms: ED Department Discharge Additional Instructions: try increasing her Bumex to 4 mg 2 times a day for the next 2 days, recommend doing daily weights and then continue the Bumex until weight returns to baseline , Please followup with your primary care provider in 2-3 days if not better, please call return to the emergency department with worsening of symptoms. - My Orders Last 24 Hours: My Active Orders 11/25/16 15:14 Cardiac Monitoring [RC] .As Directed EKG Documentation Completion [RC] ASDIRECTED Chest 1V Frontal [CR] Stat EKG 12 Lead [EK] Stat 11/25/16 15:22 Heparin Sodium [Heparin Lock Flush 100 Units/ML] 500 units FLUSH ASDIRECTED PRN - Assessment/Plan Last 24 Hours: My Active Orders 11/25/16 15:14 Cardiac Monitoring [RC] .As Directed EKG Documentation Completion [RC] ASDIRECTED Chest 1V Frontal [CR] Stat EKG 12 Lead [EK] Stat 11/25/16 15:22 Heparin Sodium [Heparin Lock Flush 100 Units/ML] 500 units FLUSH ASDIRECTED PRN Plan: Assessment Acuity = acute on chronic Site and laterality = exacerbation of congestive heart failure Etiology = poor cardiac function Manifestations = shortness of breath and hypoxia Location of injury = home Lab values = WBC elevated at 12.4 consistent leukocytosis probably secondary to steroid use chronic hemoglobin low 11.4 consistent normochromic anemia sodium low at 135 consistent hyponatremia BNP mildly elevated at 505 consistent with her fluid overload congestive heart failure pattern albumin low at 3.1 consistent hypoalbuminemia EKG reveals a normal sinus rhythm no ST changes or elevation, troponin is negative, chest x-ray I did review films myself I cannot appreciate any acute process, the official read from radiology is pending Plan I did review lab x-ray results with her and EKG she is willing to try outpatient treatment therefore increase her Bumex to 4 mg twice a day for the next couple days she is going to do daily weights and then when her weight returned similar to baseline she will go back to her usual dose of her follow- up with primary care in 2-3 days for reevaluation if no improvement Patient was in agreement with the plan all questions were answered, they were instructed to return to the emergency department or call for worsening symptoms. This note was dictated using [email or web address] voice recognition software please call with any questions.
[2016-11-25] MEDS ORDERED: Morphine 2 MG/ML Syringe IVPUSH ONE (16:29)
[2016-11-25 16:46] VITALS: BP 128/88
--- NOTE | 2016-11-26 09:35 | CR ---
Chest 1V Frontal HISTORY: Shortness of breath COMPARISON: 11/16/2006 FINDINGS: Borderline cardiomegaly. Left-sided Port-A-Cath. No acute infiltrates or effusions. No acu te congestive change.
== END 2016-11-25 17:19 | disposition home or self-care (01) ==
LOC: JP.ED 13:51
DX: I11.0 Hypertensive heart disease with heart failure (principal); I50.43 Acute on chronic combined systolic (congestive) and diastolic (congestive) heart failure; E11.9 Type 2 diabetes mellitus without complications; J44.9 Chronic obstructive pulmonary disease, unspecified; K21.9 Gastro-esophageal reflux disease without esophagitis; M19.90 Unspecified osteoarthritis, unspecified site; E66.9 Obesity, unspecified; M06.9 Rheumatoid arthritis, unspecified; Z98.890 Other specified postprocedural states; Z87.891 Personal history of nicotine dependence; F41.9 Anxiety disorder, unspecified; F32.9 Major depressive disorder, single episode, unspecified; Z96.659 Presence of unspecified artificial knee joint; Z90.710 Acquired absence of both cervix and uterus; Z79.899 Other long term (current) drug therapy; Z79.4 Long term (current) use of insulin; Z79.84 Long term (current) use of oral hypoglycemic drugs; Z79.82 Long term (current) use of aspirin; Z88.1 Allergy status to other antibiotic agents; Z88.8 Allergy status to other drugs, medicaments and biological substances; Z98.49 Cataract extraction status, unspecified eye; Z98.51 Tubal ligation status; Z90.49 Acquired absence of other specified parts of digestive tract
CPT/HCPCS: 36415; 71010; 80053; 83880; 84484; 85025; 93005; 96374; 99285; C1751; J1642; J2270

== ENCOUNTER 2016-12-22 17:45 | Inpatient (IN) | payer BC, MEDICAID ==
--- NOTE | 2016-12-22 18:42 | EDM.PDOC ---
[id number]: SOB Time Seen by Provider: 12/22/16 18:20 Source of Information: Reports: Patient, Family History Limitations: Reports: No Limitations - History of Present Illness INITIAL COMMENTS - FREE TEXT/NARRATIVE: 61-year-old female well known to this hospital with chronic COPD, had an increase in her Bumex several weeks ago, on recheck with her primary last week where she started spironolactone. Despite the medication she continues to worsen , has no activity tolerance and is very weak. She feels she started running a fever today. Onset: Gradual (over the past several days) Chest Pain Score (Numeric/FACES): 8 - Related Data Allergies Allergy/AdvReac Type Severity Reaction Status Date / Time cephalexin monohydrate Allergy Unknown flusing Verified 11/25/16 14:26 [From Keflex] levofloxacin [Levofloxacin] Allergy Rash Verified 11/25/16 14:26 amoxicillin [Amoxicillin] AdvReac Vomiting Verified 11/25/16 14:26 amoxicillin trihydrate AdvReac Vomiting Verified 11/25/16 14:26 [From Augmentin] erythromycin base AdvReac Nausea and Verified 11/25/16 14:26 [Erythromycin Base] Vomiting potassium clavulanate AdvReac Vomiting Verified 11/25/16 14:26 [From Augmentin] Home Meds: Home Meds Albuterol [Ventolin HFA] 2 puff INH ASDIRECTED PRN 03/01/13 [History] Escitalopram [Lexapro] 30 mg PO BEDTIME 03/01/13 [History] Ipratropium/Albuterol Sulfate [Duoneb 0.5 MG-3 MG/3 ML] 3 ml INH QID 03/01/13 [ History] Metoprolol Succinate [Toprol XL] 25 mg PO BEDTIME 03/01/13 [History] Verapamil HCl [Verelan] 180 mg PO BIDAC 03/01/13 [History] Aspirin 81 mg PO DAILY 08/30/13 [History] Simvastatin [Zocor] 10 mg PO BEDTIME 08/30/13 [History] Magnesium Oxide 400 mg PO BID 09/01/13 [History] Lactobacillus Acidophilus [Probiotic] 1 cap PO BID 04/05/14 [History] Cyclobenzaprine [Flexeril] 10 mg PO TID PRN 09/27/14 [History] Folic Acid 1 mg PO DAILY 09/27/14 [History] metFORMIN [Glucophage] 850 mg PO BID 09/27/14 [History] Gabapentin [Neurontin] 300 mg PO BID 03/28/15 [History] Lisinopril 20 mg PO DAILY 03/28/15 [History] Oxybutynin [Oxybutynin ER] 10 mg PO DAILY 03/28/15 [History] Promethazine [Phenergan] 25 mg PO Q8H PRN 03/28/15 [History] traZODone 50 mg PO BEDTIME 03/28/15 [History] Potassium Chloride [Klor-Con M20] 20 meq PO BID #60 tab.er 07/29/15 [Rx] Cyanocobalamin (Vitamin B12) [Vitamin B12] 1,000 mcg IM Q30D 09/26/15 [History] Ergocalciferol (Vitamin D2) [Vitamin D2] 50,000 unit PO WEEKLY 09/26/15 [History ] Ferrous Sulfate 325 mg PO DAILY 09/26/15 [History] Fluticasone/Salmeterol [Advair Diskus 500-50] 1 puff INH BID 12/05/15 [History] azaTHIOprine [Azathioprine] 150 mg PO DAILY 12/05/15 [History] Isosorbide Mononitrate [Isosorbide Mononitrate ER] 30 mg PO DAILY 04/12/16 [ History] Sucralfate [Carafate] 1 gm PO QIDACANDBED 05/10/16 [History] Insulin Aspart [NovoLOG] 10 unit SUBCUT TIDMEALS 06/05/16 [History] Pantoprazole [ProTONIX] 40 mg PO DAILY 07/13/16 [History] Clotrimazole [Mycelex] 10 mg PO ASDIRECTED 07/29/16 [History] Insulin Detemir [Levemir Flextouch] 30 units SQ BID #300 ml 08/28/16 [Rx] LORazepam [Ativan] 0.5 mg PO BID PRN #30 tablet 08/28/16 [Rx] Prednisone [IJD: predniSONE] 20 mg PO DAILY 10/28/16 [History] Bumetanide [Bumex] 2 mg PO ASDIRECTED #60 tablet 11/18/16 [Rx] Past Medical History HEENT History: Reports: Impaired Vision Cardiovascular History: Reports: Heart Failure, Hypertension, SOB on Exertion, Other (See Below) Other Cardiovascular History: diastolic congestive heart failure Respiratory History: Reports: Asthma, Bronchitis, Recurrent, COPD, Pneumonia, Recurrent, SOB, Other (See Below) Other Respiratory History: Home O2 and nebs Gastrointestinal History: Reports: Cholelithiasis, GERD, Other (See Below) Other Gastrointestinal History: history of bezoars Genitourinary History: Reports: Urinary Incontinence, Other (See Below) Other Genitourinary History: mass by bladder taken out non cancer [employer] History: Reports: PID, Musculoskeletal History: Reports: Back Pain, Chronic, Osteoarthritis, RA Neurological History: Reports: Migraines Psychiatric History: Reports: Anxiety, Depression, Panic Attack Endocrine/Metabolic History: Reports: Diabetes, Type II, Obesity/BMI 30+ Hematologic History: Reports: B12 Deficiency Immunologic History: Reports: Other (See Below) Other Immunologic History: on medication that affects immunity - Infectious Disease History Infectious Disease History: Reports: Chicken Pox, Measles, Mumps, Rubella - Past Surgical History HEENT Surgical History: Reports: Cataract Surgery, Tonsillectomy GI Surgical History: Reports: Cholecystectomy Female Surgical History: Reports: Breast Biopsy, Hysterectomy, Tubal Ligation Musculoskeletal Surgical History: Reports: Knee Replacement Social & Family History - Family History Family Medical History: Noncontributory HEENT: Reports: Cataract Cardiac: Reports: CAD Respiratory: Reports: Asthma : Reports: Other (See Below) Other Family History: mom kidney CA Musculoskeletal: Reports: Arthritis, RA Neurological: Reports: CVA, Seizure Endocrine/Metabolic: Reports: Diabetes, type II - Tobacco Use Smoking Status *Q: Never Smoker Years of Tobacco use: 15 Packs/Tins Daily: 1 Used Tobacco, but Quit: No Month Tobacco Last Used: 35 years Second Hand Smoke Exposure: No - Caffeine Use Caffeine Use: Reports: None Other Caffeine Use: 3 bottles a day - Alcohol Use Days Per Week of Alcohol Use: 0 - Recreational Drug Use Recreational Drug Use: No - Living Situation & Occupation Living situation: Reports: , with Spouse ED ROS GENERAL - Review of Systems Review Of Systems: See Below Constitutional: Reports: Malaise, Weakness HEENT: Reports: Other (She does have a recurring sharp pain in her left neck, none currently). Denies: Throat Pain Respiratory: Reports: Shortness of Breath, Cough Cardiovascular: Denies: Chest Pain GI/Abdominal: Reports: Abdominal Pain (She has an intermittent lower abdominal pain, none currently). Denies: Nausea, Vomiting Skin: Reports: Bruising (Bruises easily) Neurological: Denies: Headache ED EXAM, GENERAL - Physical Exam Exam: See Below Exam Limited By: No Limitations General Appearance: Alert, Anxious, Mild Distress Respiratory/Chest: Decreased Breath Sounds Cardiovascular: Regular Rate, Rhythm, Tachycardia Extremities: Pedal Edema (Bilateral swollen lower extremities) Neurological: Alert, Oriented Course - Vital Signs Last Recorded V/S: Last Vital Signs Temp 98.1 F 12/22/16 22:01 Pulse 92 12/22/16 22:01 Resp 20 12/22/16 22:01 BP 146/79 H 12/22/16 22:01 Pulse Ox 95 12/22/16 22:01 - Orders/Labs/Meds Orders: Active Orders 24 hr Category Date Time Status Chest 1V Frontal [CR] Stat Exams 12/22/16 18:17 Taken UA W/MICROSCOPIC [URIN] Stat Lab 12/22/16 23:00 Received Azithromycin [Zithromax] 500 mg Med 12/22/16 19:15 Active Sodium Chloride 0.9% [Normal Saline] 250 ml IV Q24H cefTRIAXone [Rocephin] 2 gm Med 12/22/16 19:00 Active Sodium Chloride 0.9% [Normal Saline] 50 ml IV Q24H Medication Orders Acetaminophen (Tylenol) 650 mg PO Q4H PRN PRN Reason: Pain (Mild 1-3)/fever Albuterol (Proventil Neb Soln) 2.5 mg NEB Q4H PRN PRN Reason: Shortness Of Breath/wheezing Albuterol/Ipratropium (Duoneb 3.0-0.5 Mg/3 Ml) 3 ml INH QID [facility] Last Admin: 12/22/16 22:14 Dose: 3 ml Aspirin (Aspirin) 81 mg PO DAILY [facility] Azathioprine (Imuran) 150 mg PO DAILY [facility] Benzonatate (Tessalon Perles) 100 mg PO TID PRN PRN Reason: Cough Bumetanide (Bumex) 4 mg PO ACBREAKFAST [facility] Bumetanide (Bumex) 2 mg PO ASDIRECTED [facility] Cyclobenzaprine HCl (Flexeril) 10 mg PO TID PRN PRN Reason: Pain Enoxaparin Sodium (Lovenox) 40 mg SUBCUT DAILY [facility] Escitalopram Oxalate (Lexapro) 30 mg PO BEDTIME [facility] Last Admin: 12/22/16 21:58 Dose: Folic Acid (Folic Acid) 1 mg PO DAILY [facility] Gabapentin (Neurontin) 300 mg PO BID [facility] Last Admin: 12/22/16 21:59 Dose: Heparin Sodium (Porcine) (Heparin Lock Flush 100 Units/Ml) 500 units FLUSH ASDIRECTED PRN PRN Reason: IV Use Last Admin: 12/22/16 22:17 Dose: 500 units Hydromorphone HCl (Dilaudid) 0.5 - 1 mg IVPUSH Q2H PRN PRN Reason: Pain (severe 7-10) Last Admin: 12/22/16 22:16 Dose: 1 mg Azithromycin 500 mg/ Sodium (Chloride) 250 mls @ 250 mls/hr IV Q24H [facility] Last Admin: 12/22/16 20:11 Dose: 250 mls/hr Ceftriaxone Sodium 2 gm/ (Sodium Chloride) 50 mls @ 100 mls/hr IV Q24H [facility] Last Admin: 12/22/16 19:31 Dose: 100 mls/hr Insulin Aspart (Novolog) 10 unit SUBCUT TIDMEALS [facility] Insulin Aspart (Novolog) 0 unit SUBCUT QIDACANDBED [facility] PRN Reason: Protocol Last Admin: 12/22/16 21:42 Dose: 8 units Insulin Detemir (Levemir) 30 unit SUBCUT BID [facility] Last Admin: 12/22/16 21:44 Dose: 30 units Isosorbide Mononitrate (Imdur) 30 mg PO DAILY [facility] Lactobacillus Rhamnosus (Culturelle) 1 cap PO BID [facility] Last Admin: 12/22/16 22:11 Dose: Lisinopril (Prinivil) 20 mg PO DAILY [facility] Lorazepam (Ativan) 0.5 mg PO BID PRN PRN Reason: Anxiety Magnesium Oxide (Magnesium Oxide) 400 mg PO BID [facility] Last Admin: 12/22/16 21:59 Dose: Metformin HCl (Glucophage) 850 mg PO BID [facility] Last Admin: 12/22/16 21:58 Dose: Methylprednisolone Sodium Succinate (Solu-Medrol) 62.5 mg IVPUSH Q8H [facility] Last Admin: 12/22/16 21:49 Dose: 62.5 mg Metoprolol Succinate (Toprol Xl) 25 mg PO BEDTIME [facility] Last Admin: 12/22/16 21:59 Dose: Mometasone Furoate/Formoterol Fumar (Dulera 200-5 Mcg) 0 puff IH BIDRT [facility] Last Admin: 12/22/16 22:13 Dose: 2 puff Morphine Sulfate (Morphine) 15 mg PO Q4H PRN PRN Reason: Pain (moderate 4-6) Ondansetron HCl (Zofran Odt) 4 mg PO Q6H PRN PRN Reason: Nausea able to take PO Oxybutynin Chloride (Oxybutynin) 5 mg PO BID [facility] Pantoprazole Sodium (Protonix) 40 mg PO ACBREAKFAST [facility] Polyethylene Glycol (Miralax) 17 gm PO DAILY PRN PRN Reason: Constipation Promethazine HCl (Phenergan) 25 mg PO Q8H PRN PRN Reason: Nausea Senna/Docusate Sodium (Senna Plus) 1 tab PO BID PRN PRN Reason: Constipation Simvastatin (Zocor) 10 mg PO BEDTIME [facility] Last Admin: 12/22/16 22:00 Dose: Spironolactone (Aldactone) 25 mg PO BIDDIURETIC [facility] Trazodone HCl (Trazodone) 50 mg PO BEDTIME [facility] Last Admin: 12/22/16 21:59 Dose: Not Given Verapamil HCl (Calan Sr) 180 mg PO BIDAC [facility] Meds: Medications Generic Name Dose Route Start Last Admin Trade Name Freq PRN Reason Stop Dose Admin Acetaminophen 650 mg 12/22/16 20:43 Tylenol PO Q4H PRN Pain (Mild 1-3)/fever Albuterol 2.5 mg 12/22/16 20:43 Proventil Neb Soln NEB Q4H PRN Shortness Of Breath/wheezing Albuterol/Ipratropium 3 ml 12/22/16 22:00 12/22/16 22:14 Duoneb 3.0-0.5 Mg/3 Ml INH 3 ml QID [facility] Administration Aspirin 81 mg 12/23/16 09:00 Aspirin PO DAILY [facility] Azathioprine 150 mg 12/23/16 09:00 Imuran PO DAILY [facility] Benzonatate 100 mg 12/22/16 20:43 Tessalon Perles PO TID PRN Cough Bumetanide 4 mg 12/23/16 07:30 Bumex PO ACBREAKFAST [facility] Bumetanide 2 mg 12/23/16 14:00 Bumex PO ASDIRECTED [facility] Cyclobenzaprine HCl 10 mg 12/22/16 20:43 Flexeril PO TID PRN Pain Enoxaparin Sodium 40 mg 12/23/16 09:00 Lovenox SUBCUT DAILY [facility] Escitalopram Oxalate 30 mg 12/22/16 21:00 12/22/16 21:58 Lexapro PO Not Given BEDTIME [facility] Folic Acid 1 mg 12/23/16 09:00 Folic Acid PO DAILY [facility] Gabapentin 300 mg 12/22/16 21:00 12/22/16 21:59 Neurontin PO Not Given BID [facility] Heparin Sodium (Porcine) 500 units 12/22/16 21:13 12/22/16 22:17 Heparin Lock Flush 100 Units/Ml FLUSH 500 units ASDIRECTED PRN Administration IV Use Hydromorphone HCl 0.5 - 1 mg 12/22/16 20:43 12/22/16 22:16 Dilaudid IVPUSH 1 mg Q2H PRN Administration Pain (severe 7-10) Azithromycin 500 mg/ Sodium 250 mls @ 250 mls/hr 12/22/16 19:15 12/22/16 20: 11 Chloride IV 250 mls/hr Q24H [facility] Administration Ceftriaxone Sodium 2 gm/ 50 mls @ 100 mls/hr 12/22/16 19:00 12/22/16 19:31 Sodium Chloride IV 100 mls/hr Q24H [facility] Administration Insulin Aspart 10 unit 12/23/16 08:00 Novolog SUBCUT TIDMEALS [facility] Insulin Aspart 0 unit 12/22/16 20:43 12/22/16 21:42 Novolog SUBCUT 8 units QIDACANDBED [facility] Administration Protocol Insulin Detemir 30 unit 12/22/16 21:00 12/22/16 21:44 Levemir SUBCUT 30 units BID [facility] Administration Isosorbide Mononitrate 30 mg 12/23/16 09:00 Imdur PO DAILY [facility] Lactobacillus Rhamnosus 1 cap 12/22/16 21:00 12/22/16 22:11 Culturelle PO Not Given BID [facility] Lisinopril 20 mg 12/23/16 09:00 Prinivil PO DAILY [facility] Lorazepam 0.5 mg 12/22/16 20:43 Ativan PO BID PRN Anxiety Magnesium Oxide 400 mg 12/22/16 21:00 12/22/16 21:59 Magnesium Oxide PO Not Given BID [facility] Metformin HCl 850 mg 12/22/16 21:00 12/22/16 21:58 Glucophage PO Not Given BID [facility] Methylprednisolone Sodium Succinate 62.5 mg 12/22/16 21:00 12/22/16 21:49 Solu-Medrol IVPUSH 62.5 mg Q8H [facility] Administration Metoprolol Succinate 25 mg 12/22/16 21:00 12/22/16 21:59 Toprol Xl PO Not Given BEDTIME [facility] Mometasone Furoate/Formoterol Fumar 0 puff 12/22/16 21:00 12/22/16 22:13 Dulera 200-5 Mcg IH 2 puff BIDRT [facility] Administration Morphine Sulfate 15 mg 12/22/16 20:43 Morphine PO Q4H PRN Pain (moderate 4-6) Ondansetron HCl 4 mg 12/22/16 20:43 Zofran Odt PO Q6H PRN Nausea able to take PO Oxybutynin Chloride 5 mg 12/23/16 09:00 Oxybutynin PO BID [facility] Pantoprazole Sodium 40 mg 12/23/16 07:30 Protonix PO ACBREAKFAST [facility] Polyethylene Glycol 17 gm 12/22/16 20:43 Miralax PO DAILY PRN Constipation Promethazine HCl 25 mg 12/22/16 20:43 Phenergan PO Q8H PRN Nausea Senna/Docusate Sodium 1 tab 12/22/16 20:43 Senna Plus PO BID PRN Constipation Simvastatin 10 mg 12/22/16 21:00 12/22/16 22:00 Zocor PO Not Given BEDTIME [facility] Spironolactone 25 mg 12/23/16 08:00 Aldactone PO BIDDIURETIC [facility] Trazodone HCl 50 mg 12/22/16 21:00 12/22/16 21:59 Trazodone PO Not Given BEDTIME [facility] Verapamil HCl 180 mg 12/23/16 07:30 Calan Sr PO BIDAC [facility] Discontinued Medications Generic Name Dose Route Start Last Admin Trade Name Freq PRN Reason Stop Dose Admin Hydromorphone HCl 0.5 mg 12/22/16 19:05 12/22/16 19:29 Dilaudid IVPUSH 12/22/16 19:06 0.5 mg ONETIME ONE Administration - Re-Assessments/Exams Free Text/Narrative Re-Assessment/Exam: 12/22/16 18:42 Portable 1 view chest x-ray, CMP and CBC were obtained. 12/22/16 18:[address] Bolivar of the hospitalist service to see the patient as she very likely will need admission. Departure - Departure Time of Disposition: 20:35 Disposition: Admitted As Inpatient 64 Condition: Poor Clinical Impression: COPD (chronic obstructive pulmonary disease) Qualifiers: COPD type: unspecified COPD Qualified Code(s): J44.9 - Chronic obstructive pulmonary disease, unspecified Pneumonia involving left lung Qualifiers: Pneumonia type: due to unspecified organism Lung location: lower lobe of lung Qualified Code(s): J18.1 - Lobar pneumonia, unspecified organism - Discharge Information - My Orders Last 24 Hours: My Active Orders 12/22/16 18:17 Chest 1V Frontal [CR] Stat - Assessment/Plan Last 24 Hours: My Active Orders 12/22/16 18:17 Chest 1V Frontal [CR] Stat
[2016-12-22] MEDS ORDERED: HYDROmorphone 0.5 MG/0.5 ML Syringe IVPUSH ONE (19:05)
[2016-12-22] MEDS ORDERED: Azithromycin 500 MG in Sodium Chloride 0.9% 250 ML IV SCH (19:15)
--- NOTE | 2016-12-22 19:29 | PCM.HP ---
H&P History of Present Illness - General Date of Service: 12/22/16 Admit Problem/Dx: Admission Diagnosis/Problem Admission Diagnosis/Problem Pneumonia Source of Information: Patient, Provider History Limitations: Reports: No Limitations - History of Present Illness Initial Comments - Free Text/Narative: Dipti presents to the emergency room today with 2 weeks of progressive shortness of breath that has become much worse over the past 2 days. She reports shortness of breath with any exertion. She has a cough that has been intermittently productive for yellow sputum. She has subjective fevers over the past 24 hours. She is developed chest pain with deep inspiration which is much worse than usual. This is a sharp pain centered in her mid chest. The pain does not radiate. Worse with coughing and certain movements. Some improvement when she takes morphine. Similar to pain with previous respiratory infections. No changes in bowel habits. She does have some intermittent crampy lower abdominal pain. Her weight is up about 8 pounds but she does not have an increase in lower extremity edema. No reports of orthopnea. She was seen by her primary care doctor twice this week and despite interventions there has had continued difficulty. Workup in the emergency room was suggestive of pneumonia with worsening hypoxia than baseline. She will be admitted for further management. Chest Pain Score (Numeric/FACES): 8 - Related Data Allergies/Adverse Reactions: Allergies Allergy/AdvReac Type Severity Reaction Status Date / Time cephalexin monohydrate Allergy Unknown flusing Verified 11/25/16 14:26 [From Keflex] levofloxacin [Levofloxacin] Allergy Rash Verified 11/25/16 14:26 amoxicillin [Amoxicillin] AdvReac Vomiting Verified 11/25/16 14:26 amoxicillin trihydrate AdvReac Vomiting Verified 11/25/16 14:26 [From Augmentin] erythromycin base AdvReac Nausea and Verified 11/25/16 14:26 [Erythromycin Base] Vomiting potassium clavulanate AdvReac Vomiting Verified 11/25/16 14:26 [From Augmentin] Home Medications: Home Meds Albuterol [Ventolin HFA] 2 puff INH ASDIRECTED PRN 03/01/13 [History] Escitalopram [Lexapro] 30 mg PO BEDTIME 03/01/13 [History] Ipratropium/Albuterol Sulfate [Duoneb 0.5 MG-3 MG/3 ML] 3 ml INH QID 03/01/13 [ History] Metoprolol Succinate [Toprol XL] 25 mg PO BEDTIME 03/01/13 [History] Verapamil HCl [Verelan] 180 mg PO BIDAC 03/01/13 [History] Aspirin 81 mg PO DAILY 08/30/13 [History] Simvastatin [Zocor] 10 mg PO BEDTIME 08/30/13 [History] Magnesium Oxide 400 mg PO BID 09/01/13 [History] Lactobacillus Acidophilus [Probiotic] 1 cap PO BID 04/05/14 [History] Cyclobenzaprine [Flexeril] 10 mg PO TID PRN 09/27/14 [History] Folic Acid 1 mg PO DAILY 09/27/14 [History] metFORMIN [Glucophage] 850 mg PO BID 09/27/14 [History] Gabapentin [Neurontin] 300 mg PO BID 03/28/15 [History] Lisinopril 20 mg PO DAILY 03/28/15 [History] Oxybutynin [Oxybutynin ER] 10 mg PO DAILY 03/28/15 [History] Promethazine [Phenergan] 25 mg PO Q8H PRN 03/28/15 [History] traZODone 50 mg PO BEDTIME 03/28/15 [History] Potassium Chloride [Klor-Con M20] 20 meq PO BID #60 tab.er 07/29/15 [Rx] Cyanocobalamin (Vitamin B12) [Vitamin B12] 1,000 mcg IM Q30D 09/26/15 [History] Ergocalciferol (Vitamin D2) [Vitamin D2] 50,000 unit PO WEEKLY 09/26/15 [History ] Ferrous Sulfate 325 mg PO DAILY 09/26/15 [History] Fluticasone/Salmeterol [Advair Diskus 500-50] 1 puff INH BID 12/05/15 [History] azaTHIOprine [Azathioprine] 150 mg PO DAILY 12/05/15 [History] Isosorbide Mononitrate [Isosorbide Mononitrate ER] 30 mg PO DAILY 04/12/16 [ History] Sucralfate [Carafate] 1 gm PO QIDACANDBED 05/10/16 [History] Insulin Aspart [NovoLOG] 10 unit SUBCUT TIDMEALS 06/05/16 [History] Pantoprazole [ProTONIX] 40 mg PO DAILY 07/13/16 [History] Clotrimazole [Mycelex] 10 mg PO ASDIRECTED 07/29/16 [History] Insulin Detemir [Levemir Flextouch] 30 units SQ BID #300 ml 08/28/16 [Rx] LORazepam [Ativan] 0.5 mg PO BID PRN #30 tablet 08/28/16 [Rx] Prednisone [IJD: predniSONE] 20 mg PO DAILY 10/28/16 [History] Bumetanide [Bumex] 2 mg PO ASDIRECTED #60 tablet 11/18/16 [Rx] Past Medical History HEENT History: Reports: Impaired Vision Cardiovascular History: Reports: Heart Failure, Hypertension, SOB on Exertion, Other (See Below) Other Cardiovascular History: diastolic congestive heart failure Respiratory History: Reports: Asthma, Bronchitis, Recurrent, COPD, Pneumonia, Recurrent, SOB, Other (See Below) Other Respiratory History: Home O2 and nebs Gastrointestinal History: Reports: Cholelithiasis, GERD, Other (See Below) Other Gastrointestinal History: history of bezoars Genitourinary History: Reports: Urinary Incontinence, Other (See Below) Other Genitourinary History: mass by bladder taken out non cancer [employer] History: Reports: PID, Musculoskeletal History: Reports: Back Pain, Chronic, Osteoarthritis, RA Neurological History: Reports: Migraines Psychiatric History: Reports: Anxiety, Depression, Panic Attack Endocrine/Metabolic History: Reports: Diabetes, Type II, Obesity/BMI 30+ Hematologic History: Reports: B12 Deficiency Immunologic History: Reports: Other (See Below) Other Immunologic History: on medication that affects immunity - Infectious Disease History Infectious Disease History: Reports: Chicken Pox, Measles, Mumps, Rubella - Past Surgical History HEENT Surgical History: Reports: Cataract Surgery, Tonsillectomy GI Surgical History: Reports: Cholecystectomy Female Surgical History: Reports: Breast Biopsy, Hysterectomy, Tubal Ligation Musculoskeletal Surgical History: Reports: Knee Replacement Social & Family History - Family History Family Medical History: Noncontributory HEENT: Reports: Cataract Cardiac: Reports: CAD Respiratory: Reports: Asthma : Reports: Other (See Below) Other Family History: mom kidney CA Musculoskeletal: Reports: Arthritis, RA Neurological: Reports: CVA, Seizure Endocrine/Metabolic: Reports: Diabetes, type II - Tobacco Use Smoking Status *Q: Never Smoker Years of Tobacco use: 15 Packs/Tins Daily: 1 Used Tobacco, but Quit: No Month Tobacco Last Used: 35 years Second Hand Smoke Exposure: No - Caffeine Use Caffeine Use: Reports: None Other Caffeine Use: 3 bottles a day - Alcohol Use Days Per Week of Alcohol Use: 0 - Recreational Drug Use Recreational Drug Use: No - Living Situation & Occupation Living situation: Reports: , with Spouse H&P Review of Systems - Review of Systems: Review Of Systems: See Below Free Text/Narrative: A complete 12 point review of systems was obtained. Pertinent positives and negatives are noted in the history of present illness. All other systems were reviewed and were negative except as noted. Exam - Exam Exam: See Below - Vital Signs Vital Signs: Last Vital Signs Temp 37.2 C 12/22/16 18:08 Pulse 100 12/22/16 18:08 Resp 22 H 12/22/16 18:08 BP 147/89 H 12/22/16 18:05 Pulse Ox 3 L 12/22/16 18:08 Weight: 134.5 kg - Exam Quality Assessment: Supplemental Oxygen General: Alert, Oriented, Cooperative, Mild Distress HEENT: Conjunctiva Clear, Mucosa Moist & [place]. No: Scleral Icterus Neck: Supple, Trachea Midline. No: Lymphadenopathy Lungs: Decreased Breath Sounds (Mild left lung base), Rales (Few left lung base) . No: Normal Respiratory Effort (Increased work of breathing), Wheezing Cardiovascular: Regular Rhythm, Tachycardia. No: Systolic Murmur GI/Abdominal Exam: Normal Bowel Sounds, Soft, Non-Tender, No Distention Back Exam: Normal Inspection, Full Range of Motion Extremities: No Pedal Edema. No: Increased Warmth Peripheral Pulses: 2+: Dorsalis Pedis (L), Dorsalis Pedis (R) Skin: Warm, Dry, Intact Neuro Extensive - Mental Status: Alert, Oriented x3, Nl Response to Commands Neuro Extensive - Motor, Sensory, Reflexes: CN II-XII Intact. No: Dysarthria, Abnormal Motor, Tremor Psychiatric: Alert, Normal Affect - Patient Data Lab Results Last 24 hrs: Laboratory Results - last 24 hr 12/22/16 Range/Units 19:09 WBC 11.2 H (4.5-11.0) K/uL RBC 4.66 (3.30-5.50) M/uL Hgb 12.7 (12.0-15.0) g/dL Hct 41.0 (36.0-48.0) % MCV 88 (80-98) fL MCH 27 (27-31) pg MCHC 31 L (32-36) % Plt Count 294 (150-400) K/uL Neut % (Auto) 85 H (36-66) % Lymph % (Auto) 11 L (24-44) % Schley % (Auto) 4 (2-6) % Eos % (Auto) 0 L (2-4) % Baso % (Auto) 1 (0-1) % Result Diagrams: 12/22/16 19:09 Imaging Impressions Last 24 hrs: Chest x-ray - images personally reviewed - heart size is normal. She has prominent pulmonary vasculature, especially on the right. Hazy opacity left lower lung base and possible small effusion. No definite mass. *Q Meaningful Use (ADM) - VTE *Q VTE Criteria *Q: - VTE Risk Assess *Q Each Risk Factor Represents 1 Point: Serious Lung Disease Including Pneumonia, Less than 1 Month, Abnormal Pulmonary Function (COPD) Total Score 1 Point Risk Factors: 2 Each Risk Factor Represents 2 Points: Age 60 - 74 Years, Morbid Obesity (BMI Greater than 40) Total Score 2 Point Risk Factors: 4 Each Risk Factor Represents 3 Points: None Total Score 3 Point Risk Factors: 0 Each Risk Factor Represents 5 Points: None Total Score 5 Point Risk Factors: 0 Venous Thromboembolism Risk Factor Score *Q: 6 - Stroke *Q Stroke Criteria *Q: - AMI *Q AMI Criteria *Q: - Problem List (1) Pneumonia involving left lung SNOMED Code(s): 620778415 ICD Code: J18.9 - PNEUMONIA, UNSPECIFIED ORGANISM Status: Acute Current Visit: Yes Qualifiers: Pneumonia type: due to unspecified organism Lung location: lower lobe of lung Qualified Code(s): J18.1 - Lobar pneumonia, unspecified organism (2) COPD (chronic obstructive pulmonary disease) SNOMED Code(s): 11670117 ICD Code: J44.9 - CHRONIC OBSTRUCTIVE PULMONARY DISEASE, UNSPECIFIED Status : Chronic Priority: High Current Visit: No Qualifiers: COPD type: unspecified COPD Qualified Code(s): J44.9 - Chronic obstructive pulmonary disease, unspecified (3) (HFpEF) heart failure with preserved ejection fraction SNOMED Code(s): 33120918 ICD Code: I50.30 - UNSPECIFIED DIASTOLIC (CONGESTIVE) HEART FAILURE Status : Chronic Current Visit: No (4) Diabetes mellitus type 2 SNOMED Code(s): 44357828 ICD Code: E11.9 - TYPE 2 DIABETES MELLITUS WITHOUT COMPLICATIONS Status: Chronic Priority: High Current Visit: No Problem List Initiated/Reviewed/Updated: Yes Orders Last 24hrs: Active Orders 24 hr Category Date Time Status Patient Status Manage Transfer [TRANSFER] Routine ADT 12/22/16 19:07 Ordered Chest 1V Frontal [CR] Stat Exams 12/22/16 18:17 Taken COMPREHENSIVE METABOLIC PN,CMP [CHEM] Stat Lab 12/22/16 19:09 Received UA W/MICROSCOPIC [URIN] Stat Lab 12/22/16 19:03 Uncollected Azithromycin [Zithromax] 500 mg Med 12/22/16 19:15 Active Sodium Chloride 0.9% [Normal Saline] 250 ml IV Q24H cefTRIAXone [Rocephin] 2 gm Med 12/22/16 19:00 Active Sodium Chloride 0.9% [Normal Saline] 50 ml IV Q24H Resuscitation Status Routine Resus Stat 12/22/16 19:12 Ordered Medication Orders Azithromycin 500 mg/ Sodium (Chloride) 250 mls @ 250 mls/hr IV Q24H OSMEL Ceftriaxone Sodium 2 gm/ (Sodium Chloride) 50 mls @ 100 mls/hr IV Q24H OSMEL Assessment/Plan Comment:: Assessment and plan - Left lower lobe pneumonia - chest x-ray shows hazy infiltrate left lung base. Patient has cough, more significant hypoxia that baseline as well as pleuritic chest pain. Low-grade fever noted in the emergency room. I risk patient given diabetes, immunosuppressed status. Not safe for outpatient management at this time. -Ceftriaxone and azithromycin -IV steroids -Supplement oxygen -Scheduled and as needed nebulizers -Pain control for pleuritic chest pain -Sputum culture if able -Blood cultures if fever Heart failure with preserved ejection fraction - mild increase in weight from baseline but this does not seem to be her primary difficulty. Weight is up about 8 pounds. Goal weight is around 292 pounds. -Increase morning bumetanide to 4 mg -Continue afternoon bumetanide of 2 mg -Daily weight -Intake and output monitoring -Continue spironolactone and additional medical management Insulin-dependent diabetes mellitus - suboptimal control at baseline, sugars often arise with increasing steroids from baseline. -Levemir 30 units twice a day -NovoLog 10 units with meals -Medium dose sliding scale insulin Rheumatoid arthritis -no increase in joint symptoms to suggest acute flare of rheumatic disease. -Continue home medications Maintenance issues - - DVT prophylaxis - enoxaparin - GI prophylaxis - PPI - Nutrition - diabetic diet - Dougherty catheter - not indicated CODE STATUS - full code Admission justification - This patient will be admitted for inpatient services and is medically appropriate meeting medical necessity for inpatient admission as outlined in my documentation. I reasonably expect the patient will require inpatient services that span a period time over 2 midnights. I reasonably expect this patient to be discharged or transferred within 96 hours after admission to the [facility]. Disposition - anticipate discharged home after the hospital stay Primary care physician - Dr Sunshine Bolivar M.D.
[2016-12-22] MEDS: cefTRIAXone 2 GM in Sodium Chloride 0.9% 50 ML IV SCH (19:31)
[2016-12-22] MEDS ORDERED: Cyclobenzaprine 10 MG Tab PO PRN (20:43)
[2016-12-22] MEDS ORDERED: Benzonatate 100 MG Cap PO PRN (20:43)
[2016-12-22] MEDS ORDERED: Albuterol 0.083% 2.5 MG/3 ML Neb Soln NEB PRN (20:43)
[2016-12-22] MEDS ORDERED: Promethazine 25 MG Tab PO PRN (20:43)
[2016-12-22] MEDS ORDERED: Polyethylene Glycol 3350 Powder 17 GM Packet PO PRN (20:43)
[2016-12-22] MEDS ORDERED: Escitalopram 20 MG Tab PO SCH (21:00)
[2016-12-22] MEDS: Insulin Aspart 100 Units/ML 3 ML Pen SUBCUT SCH (21:42)
[2016-12-22] MEDS: Insulin Detemir 100 Units/ML 3 ML Pen SUBCUT SCH (21:44)
[2016-12-22] MEDS: methylPREDNISolone Sodium Succinate 125 MG/2 ML SDV IVPUSH SCH (21:49)
[2016-12-22] MEDS: Magnesium Oxide 400 MG Tab PO SCH (21:59)
[2016-12-22] MEDS: Metoprolol Succinate 25 MG Tab.ER PO SCH (21:59)
[2016-12-22] MEDS: traZODone 50 MG Tab PO SCH (21:59)
[2016-12-22] MEDS: Gabapentin 300 MG Cap PO SCH (21:59)
[2016-12-22] MEDS: Simvastatin 20 MG Tab PO SCH (22:00)
[2016-12-22] MEDS: Lactobacillus Rhamnosus GG (Probiotic) Cap PO SCH (22:11)
[2016-12-22] MEDS: Formoterol/Mometasone 200-5 MCG 8.8 GM Inhaler IH SCH (22:13)
[2016-12-22] MEDS: Albuterol/Ipratropium 3.0-0.5 MG/3 ML Neb Soln INH SCH (22:14)
[2016-12-22] MEDS: HYDROmorphone 0.5 MG/0.5 ML Syringe IVPUSH PRN (22:16)
[2016-12-23] MEDS: LORazepam 0.5 MG Tab PO PRN ×2 (00:03→21:38)
[2016-12-23] MEDS: HYDROmorphone 0.5 MG/0.5 ML Syringe IVPUSH PRN ×3 (04:34→15:13)
[2016-12-23] MEDS: methylPREDNISolone Sodium Succinate 125 MG/2 ML SDV IVPUSH SCH ×2 (04:35→15:18)
[2016-12-23] MEDS: Albuterol/Ipratropium 3.0-0.5 MG/3 ML Neb Soln INH SCH ×4 (05:45→21:37)
[2016-12-23] MEDS: Insulin Aspart 100 Units/ML 3 ML Pen SUBCUT STA ×2 (07:10→10:02)
[2016-12-23] MEDS: Formoterol/Mometasone 200-5 MCG 8.8 GM Inhaler IH SCH ×2 (07:15→21:39)
[2016-12-23] MEDS ORDERED: Spironolactone 25 MG Tab PO SCH (08:00)
[2016-12-23] MEDS: Insulin Aspart 100 Units/ML 3 ML Pen SUBCUT SCH ×7 (08:31→21:44)
[2016-12-23] MEDS ORDERED: Sodium Polystyrene Sulfonate 15 GM/60 ML Susp 60 ML Bot PO ONE (09:00)
[2016-12-23] MEDS: Folic Acid 1 MG Tab PO SCH (09:18)
[2016-12-23] MEDS: Bumetanide 1 MG Tab PO SCH ×2 (09:18→15:14)
[2016-12-23] MEDS: Aspirin 81 MG Tab.Chew PO SCH (09:21)
[2016-12-23] MEDS: Magnesium Oxide 400 MG Tab PO SCH ×2 (09:22→21:41)
[2016-12-23] MEDS: Oxybutynin 5 MG Tab PO SCH ×2 (09:22→21:40)
[2016-12-23] MEDS: Gabapentin 300 MG Cap PO SCH ×2 (09:24→21:42)
[2016-12-23] MEDS: Lactobacillus Rhamnosus GG (Probiotic) Cap PO SCH ×2 (09:25→21:41)
[2016-12-23] MEDS: Pantoprazole 40 MG Tab.CR PO SCH (09:26)
[2016-12-23] MEDS: Enoxaparin 40 MG/0.4 ML Syringe SUBCUT SCH (09:27)
[2016-12-23] MEDS: Lisinopril 20 MG Tab PO SCH (09:27)
[2016-12-23] MEDS: Isosorbide Mononitrate 30 MG Tab.ER PO SCH (09:28)
[2016-12-23] MEDS: Verapamil 180 MG Tab.ER PO SCH ×2 (09:29→16:56)
[2016-12-23] MEDS ORDERED: Insulin Aspart 100 Units/ML 3 ML Pen SUBCUT ONE ×2 (09:40→16:37)
[2016-12-23] MEDS: Insulin Detemir 100 Units/ML 3 ML Pen SUBCUT SCH ×2 (10:01→21:45)
--- NOTE | 2016-12-23 11:43 | CR ---
Portable chest Comparison: 25 November 2016. There is a remnant of tubing from the patient's janell catheter. The hub is nonvisualized. The heart and vascular structures are within normal limits. No infiltrates or effusions. Impression: 1. Left subclavian catheter in place. The hub is not visualized. Clinical correlation recommended. 2. No acute findings of the chest.
--- NOTE | 2016-12-23 13:31 | PCM.PN ---
- General Info Date of Service: 12/23/16 Functional Status: Reports: Pain Controlled, Tolerating Diet - Review of Systems General: Reports: Weakness. Denies: Fever, Chills Pulmonary: Reports: Shortness of Breath, Cough. Denies: Sputum, Hemoptysis, Wheezing Cardiovascular: Reports: Dyspnea on Exertion. Denies: Chest Pain, Palpitations , Orthopnea, PND, Edema Gastrointestinal: Reports: No Symptoms Systems Review Comment:: Ms. Daniel has been fairly stable since admission, vital signs have been good and she has remained afebrile. Continues to feel short of breath with nonproductive cough, oxygen saturation for the most part has been within the desired range. - Patient Data Vitals - most recent: Last Vital Signs Temp 98.1 F 12/23/16 08:33 Pulse 84 12/23/16 10:55 Resp 18 12/23/16 08:33 BP 116/74 12/23/16 09:28 Pulse Ox 72 L 12/23/16 08:33 Weight - most recent: 297 lb 11.184 oz I&O - last 24 hours: Intake & Output 12/22/16 12/23/16 12/23/16 22:59 06:59 14:59 Intake Total 780 Output Total 1000 900 Balance -220 -900 Lab Results last 24 hrs: Laboratory Results - last 24 hr 12/22/16 12/22/16 12/22/16 Range/Units 19:09 19:09 23:00 WBC 11.2 H (4.5-11.0) K/uL RBC 4.66 (3.30-5.50) M/uL Hgb 12.7 (12.0-15.0) g/dL Hct 41.0 (36.0-48.0) % MCV 88 (80-98) fL MCH 27 (27-31) pg MCHC 31 L (32-36) % Plt Count 294 (150-400) K/uL Neut % (Auto) 85 H (36-66) % Lymph % (Auto) 11 L (24-44) % [place] % (Auto) 4 (2-6) % Eos % (Auto) 0 L (2-4) % Baso % (Auto) 1 (0-1) % Sodium 140 (140-148) mmol/L Potassium 5.2 (3.6-5.2) mmol/L Chloride 100 (100-108) mmol/L Carbon Dioxide 31 (21-32) mmol/L Anion Gap 8.8 (5.0-14.0) mmol/L BUN 20 H (7-18) mg/dL Creatinine 1.2 H (0.6-1.0) mg/dL Est Cr Clr Drug Dosing 45.17 mL/min Estimated GFR (MDRD) 45 L (>60) Glucose 375 H (74-106) mg/dL Calcium 9.0 (8.5-10.1) mg/dL Magnesium (1.8-2.4) mg/dL Total Bilirubin 0.2 (0.2-1.0) mg/dL AST 10 L (15-37) U/L ALT 19 (12-78) U/L Alkaline Phosphatase 105 (46-116) U/L Total Protein 7.2 (6.4-8.2) g/dL Albumin 3.4 (3.4-5.0) g/dL Globulin 3.8 H (2.3-3.5) g/dL Albumin/Globulin Ratio 0.9 L (1.2-2.2) Urine Color Yellow Urine Appearance Clear Urine pH 6.0 (4.5-8.0) Ur Specific [place] 1.015 (1.008-1.030) Urine Protein Negative (NEGATIVE) mg/dL Urine Glucose (UA) >1000 H (NEGATIVE) mg/dL Urine Ketones Negative (NEGATIVE) mg/dL Urine Occult Blood Negative (NEGATIVE) Urine Nitrite Negative (NEGATIVE) Urine Bilirubin Negative (NEGATIVE) Urine Urobilinogen Normal (NORMAL) mg/dL Ur Leukocyte Esterase Negative (NEGATIVE) Urine RBC 0-5 (0-5) Urine WBC 0-5 (0-5) Ur Epithelial Cells Moderate Amorphous Sediment Not seen Urine Bacteria Few Urine Mucus Not seen 12/23/16 12/23/16 Range/Units 05:42 05:42 WBC 12.1 H (4.5-11.0) K/uL RBC 4.51 (3.30-5.50) M/uL Hgb 12.4 (12.0-15.0) g/dL Hct 40.0 (36.0-48.0) % MCV 89 (80-98) fL MCH 28 (27-31) pg MCHC 31 L (32-36) % Plt Count 278 (150-400) K/uL Neut % (Auto) (36-66) % Lymph % (Auto) (24-44) % [place] % (Auto) (2-6) % Eos % (Auto) (2-4) % Baso % (Auto) (0-1) % Sodium 137 L (140-148) mmol/L Potassium 5.5 H (3.6-5.2) mmol/L Chloride 98 L (100-108) mmol/L Carbon Dioxide 30 (21-32) mmol/L Anion Gap 14.5 H (5.0-14.0) mmol/L BUN 20 H (7-18) mg/dL Creatinine 1.1 H (0.6-1.0) mg/dL Est Cr Clr Drug Dosing 47.10 mL/min Estimated GFR (MDRD) 50 L (>60) Glucose 450 H* (74-106) mg/dL Calcium 9.0 (8.5-10.1) mg/dL Magnesium 1.8 (1.8-2.4) mg/dL Total Bilirubin (0.2-1.0) mg/dL AST (15-37) U/L ALT (12-78) U/L Alkaline Phosphatase (46-116) U/L Total Protein (6.4-8.2) g/dL Albumin (3.4-5.0) g/dL Globulin (2.3-3.5) g/dL Albumin/Globulin Ratio (1.2-2.2) Urine Color Urine Appearance Urine pH (4.5-8.0) Ur Specific [place] (1.008-1.030) Urine Protein (NEGATIVE) mg/dL Urine Glucose (UA) (NEGATIVE) mg/dL Urine Ketones (NEGATIVE) mg/dL Urine Occult Blood (NEGATIVE) Urine Nitrite (NEGATIVE) Urine Bilirubin (NEGATIVE) Urine Urobilinogen (NORMAL) mg/dL Ur Leukocyte Esterase (NEGATIVE) Urine RBC (0-5) Urine WBC (0-5) Ur Epithelial Cells Amorphous Sediment Urine Bacteria Urine Mucus Med Orders - Current: Current Medications Acetaminophen (Tylenol) 650 mg PO Q4H PRN PRN Reason: Pain (Mild 1-3)/fever Albuterol (Proventil Neb Soln) 2.5 mg NEB Q4H PRN PRN Reason: Shortness Of Breath/wheezing Albuterol/Ipratropium (Duoneb 3.0-0.5 Mg/3 Ml) 3 ml INH QIDRT [facility] Last Admin: 12/23/16 10:55 Dose: 3 ml Aspirin (Aspirin) 81 mg PO DAILY [facility] Last Admin: 12/23/16 09:21 Dose: 81 mg Azathioprine (Imuran) 150 mg PO DAILY [facility] Last Admin: 12/23/16 09:20 Dose: 150 mg Benzonatate (Tessalon Perles) 100 mg PO TID PRN PRN Reason: Cough Bumetanide (Bumex) 4 mg PO ACBREAKFAST [facility] Last Admin: 12/23/16 09:18 Dose: 4 mg Bumetanide (Bumex) 2 mg PO DAILY@1400 [facility] Cyclobenzaprine HCl (Flexeril) 10 mg PO TID PRN PRN Reason: Pain Enoxaparin Sodium (Lovenox) 40 mg SUBCUT DAILY [facility] Last Admin: 12/23/16 09:27 Dose: 40 mg Escitalopram Oxalate (Lexapro) 30 mg PO BEDTIME [facility] Folic Acid (Folic Acid) 1 mg PO DAILY [facility] Last Admin: 12/23/16 09:18 Dose: 1 mg Gabapentin (Neurontin) 300 mg PO BID [facility] Last Admin: 12/23/16 09:24 Dose: 300 mg Heparin Sodium (Porcine) (Heparin Lock Flush 100 Units/Ml) 500 units FLUSH ASDIRECTED PRN PRN Reason: IV Use Last Admin: 12/23/16 11:35 Dose: 500 units Hydromorphone HCl (Dilaudid) 0.5 - 1 mg IVPUSH Q2H PRN PRN Reason: Pain (severe 7-10) Last Admin: 12/23/16 11:34 Dose: 0.5 mg Ceftriaxone Sodium 2 gm/ (Sodium Chloride) 50 mls @ 100 mls/hr IV Q24H [facility] Last Admin: 12/22/16 19:31 Dose: 100 mls/hr Azithromycin 500 mg/ Sodium (Chloride) 250 mls @ 250 mls/hr IV Q24H [facility] Insulin Aspart (Novolog) 10 unit SUBCUT TIDMEALS [facility] Last Admin: 12/23/16 12:27 Dose: 10 unit Insulin Aspart (Novolog) 0 unit SUBCUT QIDACANDBED [facility] PRN Reason: Protocol Last Admin: 12/23/16 12:26 Dose: 8 units Insulin Detemir (Levemir) 40 unit SUBCUT BID [facility] Isosorbide Mononitrate (Imdur) 30 mg PO DAILY@0730 [facility] Last Admin: 12/23/16 09:28 Dose: 30 mg Lactobacillus Rhamnosus (Culturelle) 1 cap PO BID [facility] Last Admin: 12/23/16 09:25 Dose: 1 cap Lisinopril (Prinivil) 20 mg PO DAILY [facility] Last Admin: 12/23/16 09:27 Dose: 20 mg Lorazepam (Ativan) 0.5 mg PO BID PRN PRN Reason: Anxiety Last Admin: 12/23/16 00:03 Dose: 0.5 mg Magnesium Oxide (Magnesium Oxide) 400 mg PO BID [facility] Last Admin: 12/23/16 09:22 Dose: 400 mg Metformin HCl (Glucophage) 850 mg PO BIDMEALS [facility] Last Admin: 12/23/16 09:23 Dose: 850 mg Metoprolol Succinate (Toprol Xl) 25 mg PO BEDTIME [facility] Last Admin: 12/22/16 21:59 Dose: Not Given Mometasone Furoate/Formoterol Fumar (Dulera 200-5 Mcg) 0 puff IH BIDRT [facility] Morphine Sulfate (Morphine) 15 mg PO Q4H PRN PRN Reason: Pain (moderate 4-6) Ondansetron HCl (Zofran Odt) 4 mg PO Q6H PRN PRN Reason: Nausea able to take PO Oxybutynin Chloride (Oxybutynin) 5 mg PO BID [facility] Last Admin: 12/23/16 09:22 Dose: 5 mg Pantoprazole Sodium (Protonix) 40 mg PO ACBREAKFAST [facility] Last Admin: 12/23/16 09:26 Dose: 40 mg Polyethylene Glycol (Miralax) 17 gm PO DAILY PRN PRN Reason: Constipation Prednisone (Prednisone) 40 mg PO WITHBREAKFAST [facility] Promethazine HCl (Phenergan) 25 mg PO Q8H PRN PRN Reason: Nausea Senna/Docusate Sodium (Senna Plus) 1 tab PO BID PRN PRN Reason: Constipation Simvastatin (Zocor) 10 mg PO BEDTIME [facility] Last Admin: 12/22/16 22:00 Dose: Not Given Trazodone HCl (Trazodone) 50 mg PO BEDTIME [facility] Last Admin: 12/22/16 21:59 Dose: Not Given Verapamil HCl (Calan Sr) 180 mg PO BIDAC [facility] Last Admin: 12/23/16 09:29 Dose: 180 mg Discontinued Medications Albuterol/Ipratropium (Duoneb 3.0-0.5 Mg/3 Ml) 3 ml INH QID [facility] Last Admin: 12/23/16 05:45 Dose: 3 ml Escitalopram Oxalate (Lexapro) 30 mg PO BEDTIME [facility] Last Admin: 12/22/16 21:58 Dose: Not Given Hydromorphone HCl (Dilaudid) 0.5 mg IVPUSH ONETIME ONE Stop: 12/22/16 19:06 Last Admin: 12/22/16 19:29 Dose: 0.5 mg Azithromycin 500 mg/ Sodium (Chloride) 250 mls @ 250 mls/hr IV Q24H [facility] Last Admin: 12/22/16 20:11 Dose: 250 mls/hr Insulin Aspart (Novolog) 15 unit SUBCUT ONETIME STA Stop: 12/23/16 06:50 Last Admin: 12/23/16 10:02 Dose: 15 units Insulin Aspart (Novolog) 15 unit SUBCUT ONETIME ONE Stop: 12/23/16 09:41 Last Admin: 12/23/16 12:30 Dose: Not Given Insulin Detemir (Levemir) 30 unit SUBCUT BID [facility] Last Admin: 12/23/16 10:01 Dose: 30 units Metformin HCl (Glucophage) 850 mg PO BID [facility] Last Admin: 12/22/16 21:58 Dose: Not Given Methylprednisolone Sodium Succinate (Solu-Medrol) 62.5 mg IVPUSH Q8H [facility] Last Admin: 12/23/16 04:35 Dose: 62.5 mg Mometasone Furoate/Formoterol Fumar (Dulera 200-5 Mcg) 0 puff IH BIDRT [facility] Last Admin: 12/23/16 07:15 Dose: 2 puff Sodium Polystyrene Sulfonate (Kayexalate) 15 gm PO ONETIME ONE Stop: 12/23/16 09:01 Last Admin: 12/23/16 12:30 Dose: 15 gm Spironolactone (Aldactone) 25 mg PO BIDDIURETIC [facility] Last Admin: 12/23/16 10:09 Dose: Not Given - Exam Quality Assessment: supplemental oxygen, DVT prophylaxis General: alert, oriented, cooperative, mild distress Lungs: Clear to Auscultation, Normal Respiratory Effort Cardiovascular: Regular Rate, Regular Rhythm, No Murmurs GI/Abdominal Exam: Normal Bowel Sounds, Soft, Non-Tender, No Distention Extremities: Normal Inspection, Non-Tender, No Pedal Edema Skin: warm, dry, intact - Problem List Review Problem List Initiated/Reviewed/Updated: Yes - My Orders Last 24 Hours: My Active Orders 12/23/16 13:25 Insulin Detemir [Levemir] 40 unit SUBCUT BID 12/24/16 05:00 BASIC METABOLIC PANEL,BMP [CHEM] Timed 12/24/16 08:00 predniSONE 40 mg PO WITHBREAKFAST - Plan Plan:: Assessment and plan - Left lower lobe pneumonia - chest x-ray shows hazy infiltrate left lung base. Stable since admission with current management. -Ceftriaxone and azithromycin -Discontinue IV Solu-Medrol -Prednisone 40 mg by mouth daily -Supplement oxygen -Scheduled and as needed nebulizers -Pain control for pleuritic chest pain -Sputum culture if able -Blood cultures if fever Heart failure with preserved ejection fraction - stable since admission -Increase morning bumetanide to 4 mg -Continue afternoon bumetanide of 2 mg -Daily weight -Intake and output monitoring Hyperkalemia -Hold spironolactone -Kayexalate 15 g by mouth now -Repeat potassium level in the a.m. Insulin-dependent diabetes mellitus - suboptimal control at baseline, sugars often arise with increasing steroids from baseline. -Levemir 40 units twice a day -NovoLog 10 units with meals -Medium dose sliding scale insulin Rheumatoid arthritis -no increase in joint symptoms to suggest acute flare of rheumatic disease. -Continue home medications Maintenance issues - - DVT prophylaxis - enoxaparin - GI prophylaxis - PPI - Nutrition - diabetic diet - Dougherty catheter - not indicated CODE STATUS - full code Admission justification - This patient will be admitted for inpatient services and is medically appropriate meeting medical necessity for inpatient admission as outlined in my documentation. I reasonably expect the patient will require inpatient services that span a period time over 2 midnights. I reasonably expect this patient to be discharged or transferred within 96 hours [facility]. Disposition - anticipate discharged home after the hospital stay Primary care physician - Dr Gonsalez
[2016-12-23] MEDS: Acetaminophen 325 MG Tab PO PRN (19:05)
[2016-12-23] MEDS: cefTRIAXone 2 GM in Sodium Chloride 0.9% 50 ML IV SCH (19:07)
[2016-12-23] MEDS ORDERED: Azithromycin 500 MG in Sodium Chloride 0.9% 250 ML IV SCH (20:00)
[2016-12-23] MEDS: Morphine 15 MG Tab PO PRN (21:39)
[2016-12-23] MEDS: Escitalopram 10 MG Tab PO SCH (21:41)
[2016-12-23] MEDS: Metoprolol Succinate 25 MG Tab.ER PO SCH (21:42)
[2016-12-23] MEDS: Simvastatin 20 MG Tab PO SCH (21:43)
[2016-12-23] MEDS: traZODone 50 MG Tab PO SCH (21:44)
[2016-12-23] MEDS: Ondansetron 4 MG Tab.DIS PO PRN (21:56)
[2016-12-24] MEDS ORDERED: Insulin Aspart 100 Units/ML 3 ML Pen SUBCUT ONE (06:28)
[2016-12-24] MEDS: Albuterol/Ipratropium 3.0-0.5 MG/3 ML Neb Soln INH SCH ×4 (07:25→20:38)
[2016-12-24] MEDS: Formoterol/Mometasone 200-5 MCG 8.8 GM Inhaler IH SCH ×2 (07:30→20:38)
[2016-12-24] MEDS: Bumetanide 1 MG Tab PO SCH ×2 (07:39→13:56)
[2016-12-24] MEDS: Isosorbide Mononitrate 30 MG Tab.ER PO SCH (07:40)
[2016-12-24] MEDS: Verapamil 180 MG Tab.ER PO SCH ×2 (07:42→16:36)
[2016-12-24] MEDS: Pantoprazole 40 MG Tab.CR PO SCH (07:43)
[2016-12-24] MEDS: Insulin Aspart 100 Units/ML 3 ML Pen SUBCUT SCH ×7 (07:45→20:54)
[2016-12-24] MEDS ORDERED: predniSONE 20 MG Tab PO SCH (08:00)
[2016-12-24] MEDS: Folic Acid 1 MG Tab PO SCH (08:45)
[2016-12-24] MEDS: Aspirin 81 MG Tab.Chew PO SCH (08:45)
[2016-12-24] MEDS: Lactobacillus Rhamnosus GG (Probiotic) Cap PO SCH ×2 (08:45→20:39)
[2016-12-24] MEDS: Oxybutynin 5 MG Tab PO SCH ×2 (08:46→20:41)
[2016-12-24] MEDS: Gabapentin 300 MG Cap PO SCH ×2 (08:46→20:51)
[2016-12-24] MEDS: Magnesium Oxide 400 MG Tab PO SCH ×2 (08:47→20:40)
[2016-12-24] MEDS: Enoxaparin 40 MG/0.4 ML Syringe SUBCUT SCH (08:48)
[2016-12-24] MEDS: Insulin Detemir 100 Units/ML 3 ML Pen SUBCUT SCH ×2 (08:50→20:55)
[2016-12-24] MEDS: Lisinopril 20 MG Tab PO SCH (09:01)
[2016-12-24] MEDS: LORazepam 0.5 MG Tab PO PRN ×2 (13:54→20:48)
[2016-12-24] MEDS: Acetaminophen 325 MG Tab PO PRN (13:55)
[2016-12-24] MEDS: HYDROmorphone 0.5 MG/0.5 ML Syringe IVPUSH PRN (14:07)
--- NOTE | 2016-12-24 14:21 | PCM.PN ---
- General Info Date of Service: 12/24/16 Functional Status: Reports: Pain Controlled, Tolerating Diet, Urinating - Review of Systems General: Denies: Fever, Weakness, Chills Pulmonary: Reports: Shortness of Breath, Cough. Denies: Sputum, Hemoptysis, Wheezing Cardiovascular: Reports: Dyspnea on Exertion. Denies: Chest Pain, Palpitations , Orthopnea, PND, Edema Gastrointestinal: Reports: No Symptoms Systems Review Comment:: Dipti has improved over the past 24 hours with less cough and shortness of breath. Vital signs have been stable and she has remained afebrile. - Patient Data Vitals - Most Recent: Last Vital Signs Temp 96.9 F 12/24/16 11:08 Pulse 83 12/24/16 11:08 Resp 16 12/24/16 11:08 BP 129/67 12/24/16 11:08 Pulse Ox 95 12/24/16 11:08 Weight - Most Recent: 297 lb 1.6 oz I&O - Last 24 Hours: Intake & Output 12/23/16 12/24/16 12/24/16 22:59 06:59 14:59 Intake Total 208 588 0756 Output Total 2400 1000 Balance 540 -1800 160 Lab Results Last 24 Hours: Laboratory Results - last 24 hr 12/24/16 Range/Units 05:15 Sodium 139 L (140-148) mmol/L Potassium 4.6 (3.6-5.2) mmol/L Chloride 99 L (100-108) mmol/L Carbon Dioxide 33 H (21-32) mmol/L Anion Gap 11.6 (5.0-14.0) mmol/L BUN 31 H D (7-18) mg/dL Creatinine 1.1 H (0.6-1.0) mg/dL Est Cr Clr Drug Dosing 47.10 mL/min Estimated GFR (MDRD) 50 L (>60) Glucose 429 H* (74-106) mg/dL Calcium 9.1 (8.5-10.1) mg/dL Med Orders - Current: Current Medications Acetaminophen (Tylenol) 650 mg PO Q4H PRN PRN Reason: Pain (Mild 1-3)/fever Last Admin: 12/24/16 13:55 Dose: 650 mg Albuterol (Proventil Neb Soln) 2.5 mg NEB Q4H PRN PRN Reason: Shortness Of Breath/wheezing Albuterol/Ipratropium (Duoneb 3.0-0.5 Mg/3 Ml) 3 ml INH QIDRT [facility] Last Admin: 12/24/16 10:55 Dose: Not Given Aspirin (Aspirin) 81 mg PO DAILY [facility] Last Admin: 12/24/16 08:45 Dose: 81 mg Azathioprine (Imuran) 150 mg PO DAILY [facility] Last Admin: 12/24/16 08:47 Dose: 150 mg Azithromycin (Zithromax) 250 mg PO DAILY [facility] Benzonatate (Tessalon Perles) 100 mg PO TID PRN PRN Reason: Cough Bumetanide (Bumex) 4 mg PO ACBREAKFAST [facility] Last Admin: 12/24/16 07:39 Dose: 4 mg Bumetanide (Bumex) 2 mg PO DAILY@1400 [facility] Last Admin: 12/24/16 13:56 Dose: 2 mg Cefdinir (Omnicef) 300 mg PO BID [facility] Cyclobenzaprine HCl (Flexeril) 10 mg PO TID PRN PRN Reason: Pain Enoxaparin Sodium (Lovenox) 40 mg SUBCUT DAILY [facility] Last Admin: 12/24/16 08:48 Dose: 40 mg Escitalopram Oxalate (Lexapro) 30 mg PO BEDTIME [facility] Last Admin: 12/23/16 21:41 Dose: 30 mg Folic Acid (Folic Acid) 1 mg PO DAILY [facility] Last Admin: 12/24/16 08:45 Dose: 1 mg Gabapentin (Neurontin) 300 mg PO BID [facility] Last Admin: 12/24/16 08:46 Dose: 300 mg Heparin Sodium (Porcine) (Heparin Lock Flush 100 Units/Ml) 500 units FLUSH ASDIRECTED PRN PRN Reason: IV Use Last Admin: 12/24/16 14:07 Dose: 500 units Insulin Aspart (Novolog) 10 unit SUBCUT TIDMEALS [facility] Last Admin: 12/24/16 11:47 Dose: 10 unit Insulin Aspart (Novolog) 0 unit SUBCUT QIDACANDBED [facility] PRN Reason: Protocol Last Admin: 12/24/16 11:48 Dose: 2 units Insulin Detemir (Levemir) 40 unit SUBCUT BID [facility] Last Admin: 12/24/16 08:50 Dose: 40 units Isosorbide Mononitrate (Imdur) 30 mg PO DAILY@0730 [facility] Last Admin: 12/24/16 07:40 Dose: 30 mg Lactobacillus Rhamnosus (Culturelle) 1 cap PO BID [facility] Last Admin: 12/24/16 08:45 Dose: 1 cap Lisinopril (Prinivil) 20 mg PO DAILY [facility] Last Admin: 12/24/16 09:01 Dose: 20 mg Lorazepam (Ativan) 0.5 mg PO BID PRN PRN Reason: Anxiety Last Admin: 12/23/16 21:38 Dose: 0.5 mg Magnesium Oxide (Magnesium Oxide) 400 mg PO BID [facility] Last Admin: 12/24/16 08:47 Dose: 400 mg Metformin HCl (Glucophage) 850 mg PO BIDMEALS [facility] Last Admin: 12/24/16 07:43 Dose: 850 mg Metoprolol Succinate (Toprol Xl) 25 mg PO BEDTIME [facility] Last Admin: 12/23/16 21:42 Dose: 25 mg Mometasone Furoate/Formoterol Fumar (Dulera 200-5 Mcg) 0 puff IH BIDRT [facility] Last Admin: 12/24/16 07:30 Dose: 2 puff Morphine Sulfate (Morphine) 15 mg PO Q4H PRN PRN Reason: Pain (moderate 4-6) Last Admin: 12/23/16 21:39 Dose: 15 mg Ondansetron HCl (Zofran Odt) 4 mg PO Q6H PRN PRN Reason: Nausea able to take PO Last Admin: 12/23/16 21:56 Dose: 4 mg Oxybutynin Chloride (Oxybutynin) 5 mg PO BID [facility] Last Admin: 12/24/16 08:46 Dose: 5 mg Pantoprazole Sodium (Protonix) 40 mg PO ACBREAKFAST [facility] Last Admin: 12/24/16 07:43 Dose: 40 mg Polyethylene Glycol (Miralax) 17 gm PO DAILY PRN PRN Reason: Constipation Prednisone (Prednisone) 20 mg PO WITHBREAKFAST [facility] Promethazine HCl (Phenergan) 25 mg PO Q8H PRN PRN Reason: Nausea Senna/Docusate Sodium (Senna Plus) 1 tab PO BID PRN PRN Reason: Constipation Simvastatin (Zocor) 10 mg PO BEDTIME [facility] Last Admin: 12/23/16 21:43 Dose: 10 mg Trazodone HCl (Trazodone) 50 mg PO BEDTIME [facility] Last Admin: 12/23/16 21:44 Dose: 50 mg Verapamil HCl (Calan Sr) 180 mg PO BIDAC [facility] Last Admin: 12/24/16 07:42 Dose: 180 mg Discontinued Medications Albuterol/Ipratropium (Duoneb 3.0-0.5 Mg/3 Ml) 3 ml INH QID [facility] Last Admin: 12/23/16 05:45 Dose: 3 ml Escitalopram Oxalate (Lexapro) 30 mg PO BEDTIME [facility] Last Admin: 12/22/16 21:58 Dose: Not Given Hydromorphone HCl (Dilaudid) 0.5 mg IVPUSH ONETIME ONE Stop: 12/22/16 19:06 Last Admin: 12/22/16 19:29 Dose: 0.5 mg Hydromorphone HCl (Dilaudid) 0.5 - 1 mg IVPUSH Q2H PRN PRN Reason: Pain (severe 7-10) Last Admin: 12/24/16 14:07 Dose: 0.5 mg Azithromycin 500 mg/ Sodium (Chloride) 250 mls @ 250 mls/hr IV Q24H [facility] Last Admin: 12/22/16 20:11 Dose: 250 mls/hr Ceftriaxone Sodium 2 gm/ (Sodium Chloride) 50 mls @ 100 mls/hr IV Q24H [facility] Last Admin: 12/23/16 19:07 Dose: 100 mls/hr Azithromycin 500 mg/ Sodium (Chloride) 250 mls @ 250 mls/hr IV Q24H [facility] Last Admin: 12/23/16 20:55 Dose: 250 mls/hr Insulin Aspart (Novolog) 15 unit SUBCUT ONETIME STA Stop: 12/23/16 06:50 Last Admin: 12/23/16 10:02 Dose: 15 units Insulin Aspart (Novolog) 15 unit SUBCUT ONETIME ONE Stop: 12/23/16 09:41 Last Admin: 12/23/16 12:30 Dose: Not Given Insulin Aspart (Novolog) 15 unit SUBCUT ONETIME ONE Stop: 12/23/16 16:38 Last Admin: 12/23/16 17:02 Dose: 15 units Insulin Aspart (Novolog) 0 unit SUBCUT ONETIME ONE Stop: 12/24/16 06:29 Last Admin: 12/24/16 06:37 Dose: 15 units Insulin Detemir (Levemir) 30 unit SUBCUT BID [facility] Last Admin: 12/23/16 10:01 Dose: 30 units Metformin HCl (Glucophage) 850 mg PO BID [facility] Last Admin: 12/22/16 21:58 Dose: Not Given Methylprednisolone Sodium Succinate (Solu-Medrol) 62.5 mg IVPUSH Q8H [facility] Last Admin: 12/23/16 15:18 Dose: 62.5 mg Mometasone Furoate/Formoterol Fumar (Dulera 200-5 Mcg) 0 puff IH BIDRT [facility] Last Admin: 12/23/16 07:15 Dose: 2 puff Prednisone (Prednisone) 40 mg PO WITHBREAKFAST [facility] Last Admin: 12/24/16 07:44 Dose: 40 mg Sodium Polystyrene Sulfonate (Kayexalate) 15 gm PO ONETIME ONE Stop: 12/23/16 09:01 Last Admin: 12/23/16 12:30 Dose: 15 gm Spironolactone (Aldactone) 25 mg PO BIDDIURETIC [facility] Last Admin: 12/23/16 10:09 Dose: Not Given - Exam Lungs: Decreased Breath Sounds. No: Crackles, Rales, Rhonchi, Rub, Wheezing Cardiovascular: Regular Rate, Regular Rhythm, No Murmurs GI/Abdominal Exam: Normal Bowel Sounds, Soft, Non-Tender, No Organomegaly, No Distention Extremities: Normal Inspection, No Pedal Edema Skin: Warm, Dry, Intact - Problem List Review Problem List Initiated/Reviewed/Updated: Yes - My Orders Last 24 Hours: My Active Orders 12/23/16 13:25 Insulin Detemir [Levemir] 40 unit SUBCUT BID 12/24/16 14:18 predniSONE 20 mg PO WITHBREAKFAST 12/24/16 21:00 Cefdinir [Omnicef] 300 mg PO BID 12/25/16 09:00 Azithromycin [Zithromax] 250 mg PO DAILY - Plan Plan:: Assessment and plan - Left lower lobe pneumonia - chest x-ray shows hazy infiltrate left lung base. Stable since admission with current management.shortness of breath and cough have improved over the past 48 hours -discontinue IV antibiotics -Oral antibiotic therapy using azithromycin and Omnicef -Prednisone 20 mg by mouth daily -Supplement oxygen -Scheduled and as needed nebulizers -Pain control for pleuritic chest pain -Sputum culture if able -Blood cultures if fever Heart failure with preserved ejection fraction - stable since admission -Increase morning bumetanide to 4 mg -Continue afternoon bumetanide of 2 mg -Daily weight -Intake and output monitoring Hyperkalemia-resolved with current management -Hold spironolactone Insulin-dependent diabetes mellitus - suboptimal control at baseline, sugars often arise with increasing steroids from baseline. -Levemir 40 units twice a day -NovoLog 10 units with meals -Medium dose sliding scale insulin Rheumatoid arthritis -no increase in joint symptoms to suggest acute flare of rheumatic disease. -Continue home medications Maintenance issues - - DVT prophylaxis - enoxaparin - GI prophylaxis - PPI - Nutrition - diabetic diet - Dougherty catheter - not indicated CODE STATUS - full code Admission justification - This patient will be admitted for inpatient services and is medically appropriate meeting medical necessity for inpatient admission as outlined in my documentation. I reasonably expect the patient will require inpatient services that span a period time over 2 midnights. I reasonably expect this patient to be discharged or transferred within 96 hours [facility]. Disposition - anticipate discharged home after the hospital stay Primary care physician - Dr Gonsalez
[2016-12-24] MEDS: Metoprolol Succinate 25 MG Tab.ER PO SCH (20:46)
[2016-12-24] MEDS: Simvastatin 20 MG Tab PO SCH (20:47)
[2016-12-24] MEDS: traZODone 50 MG Tab PO SCH (20:47)
[2016-12-24] MEDS: Cefdinir 300 MG Cap PO SCH (20:48)
[2016-12-24] MEDS: Azithromycin 250 MG Tab PO SCH (20:49)
[2016-12-24] MEDS: Escitalopram 10 MG Tab PO SCH (20:50)
[2016-12-24] MEDS: Morphine 15 MG Tab PO PRN (22:57)
[2016-12-25] MEDS: Formoterol/Mometasone 200-5 MCG 8.8 GM Inhaler IH SCH ×2 (07:32→21:47)
[2016-12-25] MEDS: Albuterol/Ipratropium 3.0-0.5 MG/3 ML Neb Soln INH SCH ×4 (07:32→21:58)
[2016-12-25] MEDS: Bumetanide 1 MG Tab PO SCH ×2 (08:14→14:48)
[2016-12-25] MEDS: Verapamil 180 MG Tab.ER PO SCH ×2 (08:14→16:38)
[2016-12-25] MEDS: Isosorbide Mononitrate 30 MG Tab.ER PO SCH (08:15)
[2016-12-25] MEDS: Pantoprazole 40 MG Tab.CR PO SCH (08:16)
[2016-12-25] MEDS: Aspirin 81 MG Tab.Chew PO SCH (08:17)
[2016-12-25] MEDS: Lactobacillus Rhamnosus GG (Probiotic) Cap PO SCH ×2 (08:17→21:47)
[2016-12-25] MEDS: predniSONE 20 MG Tab PO SCH (08:17)
[2016-12-25] MEDS: Enoxaparin 40 MG/0.4 ML Syringe SUBCUT SCH (08:18)
[2016-12-25] MEDS: Cefdinir 300 MG Cap PO SCH ×2 (08:18→21:51)
[2016-12-25] MEDS: Magnesium Oxide 400 MG Tab PO SCH ×2 (08:18→21:49)
[2016-12-25] MEDS: Gabapentin 300 MG Cap PO SCH ×2 (08:18→21:49)
[2016-12-25] MEDS: Folic Acid 1 MG Tab PO SCH (08:18)
[2016-12-25] MEDS: Oxybutynin 5 MG Tab PO SCH ×2 (08:18→21:50)
[2016-12-25] MEDS: Lisinopril 20 MG Tab PO SCH (08:19)
[2016-12-25] MEDS: Insulin Detemir 100 Units/ML 3 ML Pen SUBCUT SCH ×2 (08:20→21:47)
[2016-12-25] MEDS: Insulin Aspart 100 Units/ML 3 ML Pen SUBCUT SCH ×7 (08:22→21:45)
--- NOTE | 2016-12-25 10:53 | PCM.PN ---
- General Info Date of Service: 12/25/16 Functional Status: Reports: Tolerating Diet, Urinating - Review of Systems General: Reports: Weakness. Denies: Fever, Chills Pulmonary: Reports: Shortness of Breath, Cough. Denies: Pleuritic Chest Pain, Sputum, Hemoptysis, Wheezing Cardiovascular: Reports: Dyspnea on Exertion. Denies: Chest Pain, Palpitations , Orthopnea, PND, Edema Gastrointestinal: Reports: No Symptoms Systems Review Comment:: This patient has been stable over the past 24 hours, vital signs have been good and she has remained afebrile. Continues to experience some weakness and increased shortness of breath from baseline, also is had mild soreness of her throat this morning. - Patient Data Vitals - Most Recent: Last Vital Signs Temp 97.8 F 12/25/16 06:16 Pulse 88 12/25/16 07:36 Resp 16 12/25/16 06:16 BP 165/90 H 12/25/16 08:19 Pulse Ox 95 12/25/16 07:36 Weight - Most Recent: 299 lb 14.4 oz I&O - Last 24 Hours: Intake & Output 12/24/16 12/25/16 12/25/16 22:59 06:59 14:59 Intake Total 400 240 Output Total 1250 1500 900 Balance -850 -1500 -660 Med Orders - Current: Current Medications Acetaminophen (Tylenol) 650 mg PO Q4H PRN PRN Reason: Pain (Mild 1-3)/fever Last Admin: 12/24/16 13:55 Dose: 650 mg Albuterol (Proventil Neb Soln) 2.5 mg NEB Q4H PRN PRN Reason: Shortness Of Breath/wheezing Albuterol/Ipratropium (Duoneb 3.0-0.5 Mg/3 Ml) 3 ml INH QIDRT [facility] Last Admin: 12/25/16 07:32 Dose: 3 ml Aspirin (Aspirin) 81 mg PO DAILY [facility] Last Admin: 12/25/16 08:17 Dose: 81 mg Azathioprine (Imuran) 150 mg PO DAILY [facility] Last Admin: 12/25/16 08:20 Dose: 150 mg Azithromycin (Zithromax) 250 mg PO BEDTIME [facility] Last Admin: 12/24/16 20:49 Dose: 250 mg Benzonatate (Tessalon Perles) 100 mg PO TID PRN PRN Reason: Cough Bumetanide (Bumex) 4 mg PO ACBREAKFAST [facility] Last Admin: 12/25/16 08:14 Dose: 4 mg Bumetanide (Bumex) 2 mg PO DAILY@1400 [facility] Last Admin: 12/24/16 13:56 Dose: 2 mg Cefdinir (Omnicef) 300 mg PO BID [facility] Last Admin: 12/25/16 08:18 Dose: 300 mg Cyclobenzaprine HCl (Flexeril) 10 mg PO TID PRN PRN Reason: Pain Enoxaparin Sodium (Lovenox) 40 mg SUBCUT DAILY [facility] Last Admin: 12/25/16 08:18 Dose: 40 mg Escitalopram Oxalate (Lexapro) 30 mg PO BEDTIME [facility] Last Admin: 12/24/16 20:50 Dose: 30 mg Folic Acid (Folic Acid) 1 mg PO DAILY [facility] Last Admin: 12/25/16 08:18 Dose: 1 mg Gabapentin (Neurontin) 300 mg PO BID [facility] Last Admin: 12/25/16 08:18 Dose: 300 mg Heparin Sodium (Porcine) (Heparin Lock Flush 100 Units/Ml) 500 units FLUSH ASDIRECTED PRN PRN Reason: IV Use Last Admin: 12/24/16 14:07 Dose: 500 units Insulin Aspart (Novolog) 10 unit SUBCUT TIDMEALS [facility] Last Admin: 12/25/16 08:22 Dose: 10 unit Insulin Aspart (Novolog) 0 unit SUBCUT QIDACANDBED [facility] PRN Reason: Protocol Last Admin: 12/25/16 08:28 Dose: 4 units Insulin Detemir (Levemir) 40 unit SUBCUT BID [facility] Last Admin: 12/25/16 08:20 Dose: 40 units Isosorbide Mononitrate (Imdur) 30 mg PO DAILY@0730 [facility] Last Admin: 12/25/16 08:15 Dose: 30 mg Lactobacillus Rhamnosus (Culturelle) 1 cap PO BID [facility] Last Admin: 12/25/16 08:17 Dose: 1 cap Lisinopril (Prinivil) 20 mg PO DAILY [facility] Last Admin: 12/25/16 08:19 Dose: 20 mg Lorazepam (Ativan) 0.5 mg PO BID PRN PRN Reason: Anxiety Last Admin: 12/24/16 20:48 Dose: 0.5 mg Magnesium Oxide (Magnesium Oxide) 400 mg PO BID [facility] Last Admin: 12/25/16 08:18 Dose: 400 mg Metformin HCl (Glucophage) 850 mg PO BIDMEALS [facility] Last Admin: 12/25/16 08:16 Dose: 850 mg Metoprolol Succinate (Toprol Xl) 25 mg PO BEDTIME [facility] Last Admin: 12/24/16 20:46 Dose: Not Given Mometasone Furoate/Formoterol Fumar (Dulera 200-5 Mcg) 0 puff IH BIDRT [facility] Last Admin: 12/25/16 07:32 Dose: 2 puff Morphine Sulfate (Morphine) 15 mg PO Q4H PRN PRN Reason: Pain (moderate 4-6) Last Admin: 12/24/16 22:57 Dose: 15 mg Ondansetron HCl (Zofran Odt) 4 mg PO Q6H PRN PRN Reason: Nausea able to take PO Last Admin: 12/23/16 21:56 Dose: 4 mg Oxybutynin Chloride (Oxybutynin) 5 mg PO BID [facility] Last Admin: 12/25/16 08:18 Dose: 5 mg Pantoprazole Sodium (Protonix) 40 mg PO ACBREAKFAST [facility] Last Admin: 12/25/16 08:16 Dose: 40 mg Polyethylene Glycol (Miralax) 17 gm PO DAILY PRN PRN Reason: Constipation Prednisone (Prednisone) 20 mg PO WITHBREAKFAST [facility] Last Admin: 12/25/16 08:17 Dose: 20 mg Promethazine HCl (Phenergan) 25 mg PO Q8H PRN PRN Reason: Nausea Senna/Docusate Sodium (Senna Plus) 1 tab PO BID PRN PRN Reason: Constipation Simvastatin (Zocor) 10 mg PO BEDTIME [facility] Last Admin: 12/24/16 20:47 Dose: 10 mg Trazodone HCl (Trazodone) 50 mg PO BEDTIME [facility] Last Admin: 12/24/16 20:47 Dose: 50 mg Verapamil HCl (Calan Sr) 180 mg PO BIDAC [facility] Last Admin: 12/25/16 08:14 Dose: 180 mg Discontinued Medications Albuterol/Ipratropium (Duoneb 3.0-0.5 Mg/3 Ml) 3 ml INH QID [facility] Last Admin: 12/23/16 05:45 Dose: 3 ml Escitalopram Oxalate (Lexapro) 30 mg PO BEDTIME [facility] Last Admin: 12/22/16 21:58 Dose: Not Given Hydromorphone HCl (Dilaudid) 0.5 mg IVPUSH ONETIME ONE Stop: 12/22/16 19:06 Last Admin: 12/22/16 19:29 Dose: 0.5 mg Hydromorphone HCl (Dilaudid) 0.5 - 1 mg IVPUSH Q2H PRN PRN Reason: Pain (severe 7-10) Last Admin: 12/24/16 14:07 Dose: 0.5 mg Azithromycin 500 mg/ Sodium (Chloride) 250 mls @ 250 mls/hr IV Q24H [facility] Last Admin: 12/22/16 20:11 Dose: 250 mls/hr Ceftriaxone Sodium 2 gm/ (Sodium Chloride) 50 mls @ 100 mls/hr IV Q24H [facility] Last Admin: 12/23/16 19:07 Dose: 100 mls/hr Azithromycin 500 mg/ Sodium (Chloride) 250 mls @ 250 mls/hr IV Q24H [facility] Last Admin: 12/23/16 20:55 Dose: 250 mls/hr Insulin Aspart (Novolog) 15 unit SUBCUT ONETIME STA Stop: 12/23/16 06:50 Last Admin: 12/23/16 10:02 Dose: 15 units Insulin Aspart (Novolog) 15 unit SUBCUT ONETIME ONE Stop: 12/23/16 09:41 Last Admin: 12/23/16 12:30 Dose: Not Given Insulin Aspart (Novolog) 15 unit SUBCUT ONETIME ONE Stop: 12/23/16 16:38 Last Admin: 12/23/16 17:02 Dose: 15 units Insulin Aspart (Novolog) 0 unit SUBCUT ONETIME ONE Stop: 12/24/16 06:29 Last Admin: 12/24/16 06:37 Dose: 15 units Insulin Detemir (Levemir) 30 unit SUBCUT BID [facility] Last Admin: 12/23/16 10:01 Dose: 30 units Metformin HCl (Glucophage) 850 mg PO BID [facility] Last Admin: 12/22/16 21:58 Dose: Not Given Methylprednisolone Sodium Succinate (Solu-Medrol) 62.5 mg IVPUSH Q8H [facility] Last Admin: 12/23/16 15:18 Dose: 62.5 mg Mometasone Furoate/Formoterol Fumar (Dulera 200-5 Mcg) 0 puff IH BIDRT [facility] Last Admin: 12/23/16 07:15 Dose: 2 puff Prednisone (Prednisone) 40 mg PO WITHBREAKFAST [facility] Last Admin: 12/24/16 07:44 Dose: 40 mg Sodium Polystyrene Sulfonate (Kayexalate) 15 gm PO ONETIME ONE Stop: 12/23/16 09:01 Last Admin: 12/23/16 12:30 Dose: 15 gm Spironolactone (Aldactone) 25 mg PO BIDDIURETIC [facility] Last Admin: 12/23/16 10:09 Dose: Not Given - Exam Quality Assessment: Supplemental Oxygen, DVT Prophylaxis General: Alert, Oriented, Cooperative, No Acute Distress HEENT: Other (Posterior fair neck some appears to be clear with no obvious inflammation) Lungs: Normal Respiratory Effort, Decreased Breath Sounds. No: Rales, Rhonchi, Rub, Stridor, Wheezing Cardiovascular: Regular Rate, Regular Rhythm, No Murmurs GI/Abdominal Exam: Normal Bowel Sounds, Soft, Non-Tender, No Distention Extremities: Normal Inspection, No Pedal Edema Skin: Warm, Dry, Intact - Problem List Review Problem List Initiated/Reviewed/Updated: Yes - My Orders Last 24 Hours: My Active Orders 12/24/16 14:18 predniSONE 20 mg PO WITHBREAKFAST 12/24/16 21:00 Azithromycin [Zithromax] 250 mg PO BEDTIME Cefdinir [Omnicef] 300 mg PO BID - Plan Plan:: Assessment and plan - Left lower lobe pneumonia - chest x-ray shows hazy infiltrate left lung base. Stable since admission with current management.shortness of breath and cough have improved over the past 72 hours -Oral antibiotic therapy using azithromycin and Omnicef -Prednisone 20 mg by mouth daily -Supplement oxygen -Scheduled and as needed nebulizers -Pain control for pleuritic chest pain Heart failure with preserved ejection fraction - stable since admission -Increase morning bumetanide to 4 mg -Continue afternoon bumetanide of 2 mg -Daily weight -Intake and output monitoring Hyperkalemia-resolved with current management -Hold spironolactone Insulin-dependent diabetes mellitus - glucose levels have improved with decreased dose of steroids -Levemir 40 units twice a day -NovoLog 10 units with meals -Medium dose sliding scale insulin Rheumatoid arthritis -no increase in joint symptoms to suggest acute flare of rheumatic disease. -Continue home medications Maintenance issues - - DVT prophylaxis - enoxaparin - GI prophylaxis - PPI - Nutrition - diabetic diet - Dougherty catheter - not indicated CODE STATUS - full code Admission justification - This patient will be admitted for inpatient services and is medically appropriate meeting medical necessity for inpatient admission as outlined in my documentation. I reasonably expect the patient will require inpatient services that span a period time over 2 midnights. I reasonably expect this patient to be discharged or transferred within 96 hours [facility] Disposition - anticipate discharged home after the hospital stay Primary care physician - Dr Gonsalez
[2016-12-25] MEDS: LORazepam 0.5 MG Tab PO PRN (11:26)
[2016-12-25] MEDS ORDERED: HYDROmorphone 0.5 MG/0.5 ML Syringe IVPUSH ONE (17:42)
[2016-12-25] MEDS: Ondansetron 4 MG Tab.DIS PO PRN (18:00)
[2016-12-25] MEDS: Escitalopram 10 MG Tab PO SCH (21:48)
[2016-12-25] MEDS: Metoprolol Succinate 25 MG Tab.ER PO SCH (21:51)
[2016-12-25] MEDS: Simvastatin 20 MG Tab PO SCH (21:52)
[2016-12-25] MEDS: Azithromycin 250 MG Tab PO SCH (21:52)
[2016-12-25] MEDS: traZODone 50 MG Tab PO SCH (21:53)
[2016-12-26] MEDS: Acetaminophen 325 MG Tab PO PRN ×3 (01:42→21:44)
[2016-12-26] MEDS: Ondansetron 4 MG Tab.DIS PO PRN (01:42)
[2016-12-26] MEDS: Formoterol/Mometasone 200-5 MCG 8.8 GM Inhaler IH SCH ×2 (07:01→21:45)
[2016-12-26] MEDS: Albuterol/Ipratropium 3.0-0.5 MG/3 ML Neb Soln INH SCH ×4 (07:01→21:48)
[2016-12-26] MEDS: Bumetanide 1 MG Tab PO SCH ×2 (08:53→14:58)
[2016-12-26] MEDS: Isosorbide Mononitrate 30 MG Tab.ER PO SCH (08:54)
[2016-12-26] MEDS: Lactobacillus Rhamnosus GG (Probiotic) Cap PO SCH ×2 (08:55→21:44)
[2016-12-26] MEDS: Verapamil 180 MG Tab.ER PO SCH ×2 (08:55→17:27)
[2016-12-26] MEDS: Cefdinir 300 MG Cap PO SCH ×2 (08:55→21:45)
[2016-12-26] MEDS: Aspirin 81 MG Tab.Chew PO SCH (08:56)
[2016-12-26] MEDS: predniSONE 20 MG Tab PO SCH (08:56)
[2016-12-26] MEDS: Folic Acid 1 MG Tab PO SCH (08:57)
[2016-12-26] MEDS: Pantoprazole 40 MG Tab.CR PO SCH (08:57)
[2016-12-26] MEDS: Magnesium Oxide 400 MG Tab PO SCH ×2 (08:57→21:44)
[2016-12-26] MEDS: Gabapentin 300 MG Cap PO SCH ×2 (08:57→21:44)
[2016-12-26] MEDS: Oxybutynin 5 MG Tab PO SCH ×2 (08:58→21:45)
[2016-12-26] MEDS: Enoxaparin 40 MG/0.4 ML Syringe SUBCUT SCH (08:59)
[2016-12-26] MEDS: Insulin Detemir 100 Units/ML 3 ML Pen SUBCUT SCH ×2 (08:59→21:47)
[2016-12-26] MEDS: Lisinopril 20 MG Tab PO SCH (08:59)
[2016-12-26] MEDS: Insulin Aspart 100 Units/ML 3 ML Pen SUBCUT SCH ×7 (09:01→21:47)
--- NOTE | 2016-12-26 10:03 | PCM.PN ---
- General Info Date of Service: 12/26/16 Functional Status: Reports: Tolerating Diet, Urinating - Review of Systems General: Reports: Weakness. Denies: Fever, Chills Pulmonary: Reports: Shortness of Breath, Cough. Denies: Pleuritic Chest Pain, Sputum, Hemoptysis, Wheezing Cardiovascular: Reports: Dyspnea on Exertion. Denies: Chest Pain, Palpitations , Orthopnea, PND, Edema Gastrointestinal: Reports: No Symptoms Systems Review Comment:: Dipti has noted further modest improvement over the past 24 hours with less shortness of breath and cough. Vital signs have been stable and she has remained a febrile. Continues to have mild soreness in her throat as well as some hoarseness. - Patient Data Vitals - Most Recent: Last Vital Signs Temp 96.8 F 12/26/16 07:34 Pulse 78 12/26/16 08:07 Resp 20 12/26/16 08:07 BP 115/79 12/26/16 08:59 Pulse Ox 96 12/26/16 07:34 Weight - Most Recent: 299 lb 6.4 oz Med Orders - Current: Current Medications Acetaminophen (Tylenol) 650 mg PO Q4H PRN PRN Reason: Pain (Mild 1-3)/fever Last Admin: 12/26/16 01:42 Dose: 650 mg Albuterol (Proventil Neb Soln) 2.5 mg NEB Q4H PRN PRN Reason: Shortness Of Breath/wheezing Albuterol/Ipratropium (Duoneb 3.0-0.5 Mg/3 Ml) 3 ml INH QIDRT [facility] Last Admin: 12/26/16 07:01 Dose: 3 ml Aspirin (Aspirin) 81 mg PO DAILY [facility] Last Admin: 12/26/16 08:56 Dose: 81 mg Azathioprine (Imuran) 150 mg PO DAILY [facility] Last Admin: 12/26/16 08:57 Dose: 150 mg Azithromycin (Zithromax) 250 mg PO BEDTIME [facility] Last Admin: 12/25/16 21:52 Dose: 250 mg Benzonatate (Tessalon Perles) 100 mg PO TID PRN PRN Reason: Cough Bumetanide (Bumex) 4 mg PO ACBREAKFAST [facility] Last Admin: 12/26/16 08:53 Dose: 4 mg Bumetanide (Bumex) 2 mg PO DAILY@1400 [facility] Last Admin: 12/25/16 14:48 Dose: 2 mg Cefdinir (Omnicef) 300 mg PO BID [facility] Last Admin: 12/26/16 08:55 Dose: 300 mg Cyclobenzaprine HCl (Flexeril) 10 mg PO TID PRN PRN Reason: Pain Enoxaparin Sodium (Lovenox) 40 mg SUBCUT DAILY [facility] Last Admin: 12/26/16 08:59 Dose: 40 mg Escitalopram Oxalate (Lexapro) 30 mg PO BEDTIME [facility] Last Admin: 12/25/16 21:48 Dose: 30 mg Folic Acid (Folic Acid) 1 mg PO DAILY [facility] Last Admin: 12/26/16 08:57 Dose: 1 mg Gabapentin (Neurontin) 300 mg PO BID [facility] Last Admin: 12/26/16 08:57 Dose: 300 mg Heparin Sodium (Porcine) (Heparin Lock Flush 100 Units/Ml) 500 units FLUSH ASDIRECTED PRN PRN Reason: IV Use Last Admin: 12/24/16 14:07 Dose: 500 units Insulin Aspart (Novolog) 10 unit SUBCUT TIDMEALS [facility] Last Admin: 12/26/16 09:01 Dose: 10 unit Insulin Aspart (Novolog) 0 unit SUBCUT QIDACANDBED [facility] PRN Reason: Protocol Last Admin: 12/26/16 09:01 Dose: 4 units Insulin Detemir (Levemir) 40 unit SUBCUT BID [facility] Last Admin: 12/26/16 08:59 Dose: 40 units Isosorbide Mononitrate (Imdur) 30 mg PO DAILY@0730 [facility] Last Admin: 12/26/16 08:54 Dose: 30 mg Lactobacillus Rhamnosus (Culturelle) 1 cap PO BID [facility] Last Admin: 12/26/16 08:55 Dose: 1 cap Lisinopril (Prinivil) 20 mg PO DAILY [facility] Last Admin: 12/26/16 08:59 Dose: 20 mg Lorazepam (Ativan) 0.5 mg PO BID PRN PRN Reason: Anxiety Last Admin: 12/25/16 11:26 Dose: 0.5 mg Magnesium Hydroxide (Milk Of Magnesia) 30 ml PO ONETIME ONE Stop: 12/26/16 10:00 Magnesium Oxide (Magnesium Oxide) 400 mg PO BID [facility] Last Admin: 12/26/16 08:57 Dose: 400 mg Metformin HCl (Glucophage) 850 mg PO BIDMEALS [facility] Last Admin: 12/26/16 08:56 Dose: 850 mg Metoprolol Succinate (Toprol Xl) 25 mg PO BEDTIME [facility] Last Admin: 12/25/16 21:51 Dose: 25 mg Mometasone Furoate/Formoterol Fumar (Dulera 200-5 Mcg) 0 puff IH BIDRT [facility] Last Admin: 12/26/16 07:01 Dose: 2 puff Morphine Sulfate (Morphine) 15 mg PO Q4H PRN PRN Reason: Pain (moderate 4-6) Last Admin: 12/24/16 22:57 Dose: 15 mg Ondansetron HCl (Zofran Odt) 4 mg PO Q6H PRN PRN Reason: Nausea able to take PO Last Admin: 12/26/16 01:42 Dose: 4 mg Oxybutynin Chloride (Oxybutynin) 5 mg PO BID [facility] Last Admin: 12/26/16 08:58 Dose: 5 mg Pantoprazole Sodium (Protonix) 40 mg PO ACBREAKFAST [facility] Last Admin: 12/26/16 08:57 Dose: 40 mg Polyethylene Glycol (Miralax) 17 gm PO DAILY PRN PRN Reason: Constipation Potassium Chloride (Klor-Con M20) 20 meq PO BID [facility] Prednisone (Prednisone) 20 mg PO WITHBREAKFAST [facility] Last Admin: 12/26/16 08:56 Dose: 20 mg Promethazine HCl (Phenergan) 25 mg PO Q8H PRN PRN Reason: Nausea Senna/Docusate Sodium (Senna Plus) 1 tab PO BID PRN PRN Reason: Constipation Simvastatin (Zocor) 10 mg PO BEDTIME [facility] Last Admin: 12/25/16 21:52 Dose: 10 mg Trazodone HCl (Trazodone) 50 mg PO BEDTIME [facility] Last Admin: 12/25/16 21:53 Dose: 50 mg Verapamil HCl (Calan Sr) 180 mg PO BIDAC [facility] Last Admin: 12/26/16 08:55 Dose: 180 mg Discontinued Medications Albuterol/Ipratropium (Duoneb 3.0-0.5 Mg/3 Ml) 3 ml INH QID [facility] Last Admin: 12/23/16 05:45 Dose: 3 ml Escitalopram Oxalate (Lexapro) 30 mg PO BEDTIME [facility] Last Admin: 12/22/16 21:58 Dose: Not Given Hydromorphone HCl (Dilaudid) 0.5 mg IVPUSH ONETIME ONE Stop: 12/22/16 19:06 Last Admin: 12/22/16 19:29 Dose: 0.5 mg Hydromorphone HCl (Dilaudid) 0.5 - 1 mg IVPUSH Q2H PRN PRN Reason: Pain (severe 7-10) Last Admin: 12/24/16 14:07 Dose: 0.5 mg Hydromorphone HCl (Dilaudid) 0.5 mg IVPUSH ONETIME ONE Stop: 12/25/16 17:43 Last Admin: 12/25/16 17:51 Dose: 0.5 mg Azithromycin 500 mg/ Sodium (Chloride) 250 mls @ 250 mls/hr IV Q24H [facility] Last Admin: 12/22/16 20:11 Dose: 250 mls/hr Ceftriaxone Sodium 2 gm/ (Sodium Chloride) 50 mls @ 100 mls/hr IV Q24H [facility] Last Admin: 12/23/16 19:07 Dose: 100 mls/hr Azithromycin 500 mg/ Sodium (Chloride) 250 mls @ 250 mls/hr IV Q24H [facility] Last Admin: 12/23/16 20:55 Dose: 250 mls/hr Insulin Aspart (Novolog) 15 unit SUBCUT ONETIME STA Stop: 12/23/16 06:50 Last Admin: 12/23/16 10:02 Dose: 15 units Insulin Aspart (Novolog) 15 unit SUBCUT ONETIME ONE Stop: 12/23/16 09:41 Last Admin: 12/23/16 12:30 Dose: Not Given Insulin Aspart (Novolog) 15 unit SUBCUT ONETIME ONE Stop: 12/23/16 16:38 Last Admin: 12/23/16 17:02 Dose: 15 units Insulin Aspart (Novolog) 0 unit SUBCUT ONETIME ONE Stop: 12/24/16 06:29 Last Admin: 12/24/16 06:37 Dose: 15 units Insulin Detemir (Levemir) 30 unit SUBCUT BID [facility] Last Admin: 12/23/16 10:01 Dose: 30 units Metformin HCl (Glucophage) 850 mg PO BID [facility] Last Admin: 12/22/16 21:58 Dose: Not Given Methylprednisolone Sodium Succinate (Solu-Medrol) 62.5 mg IVPUSH Q8H [facility] Last Admin: 12/23/16 15:18 Dose: 62.5 mg Mometasone Furoate/Formoterol Fumar (Dulera 200-5 Mcg) 0 puff IH BIDRT [facility] Last Admin: 12/23/16 07:15 Dose: 2 puff Prednisone (Prednisone) 40 mg PO WITHBREAKFAST [facility] Last Admin: 12/24/16 07:44 Dose: 40 mg Sodium Polystyrene Sulfonate (Kayexalate) 15 gm PO ONETIME ONE Stop: 12/23/16 09:01 Last Admin: 12/23/16 12:30 Dose: 15 gm Spironolactone (Aldactone) 25 mg PO BIDDIURETIC [facility] Last Admin: 12/23/16 10:09 Dose: Not Given - Exam Quality Assessment: Supplemental Oxygen, DVT Prophylaxis General: Alert, Oriented, Cooperative, No Acute Distress Lungs: Decreased Breath Sounds. No: Crackles, Rales, Rhonchi, Rub, Wheezing Cardiovascular: Regular Rate, Regular Rhythm, No Murmurs GI/Abdominal Exam: Normal Bowel Sounds, Soft, Non-Tender, No Organomegaly Extremities: Normal Inspection, Normal Range of Motion, No Pedal Edema Skin: Warm, Dry, Intact - Problem List Review Problem List Initiated/Reviewed/Updated: Yes - My Orders Last 24 Hours: My Active Orders 12/26/16 09:59 Magnesium Hydroxide [Milk of Magnesia] 30 ml PO ONETIME ONE 12/26/16 21:00 Potassium Chloride [Klor-Con M20] 20 meq PO BID - Plan Plan:: Assessment and plan - Left lower lobe pneumonia - chest x-ray shows hazy infiltrate left lung base. Stable since admission with current management.shortness of breath and cough have improved since admission -Oral antibiotic therapy using azithromycin and Omnicef -Prednisone 20 mg by mouth daily -Supplement oxygen -Scheduled and as needed nebulizers -Pain control for pleuritic chest pain Heart failure with preserved ejection fraction - stable since admission -Increase morning bumetanide to 4 mg -Continue afternoon bumetanide of 2 mg -Daily weight -Intake and output monitoring Hyperkalemia-resolved with current management Insulin-dependent diabetes mellitus - glucose levels have improved with decreased dose of steroids -Levemir 40 units twice a day -NovoLog 10 units with meals -Medium dose sliding scale insulin Rheumatoid arthritis -no increase in joint symptoms to suggest acute flare of rheumatic disease. -Continue home medications Maintenance issues - - DVT prophylaxis - enoxaparin - GI prophylaxis - PPI - Nutrition - diabetic diet - Dougherty catheter - not indicated CODE STATUS - full code Admission justification - This patient will be admitted for inpatient services and is medically appropriate meeting medical necessity for inpatient admission as outlined in my documentation. I reasonably expect the patient will require inpatient services that span a period time over 2 midnights. I reasonably expect this patient to be discharged or transferred within 96 hours [facility]. Disposition - anticipate discharged home tomorrow Primary care physician - Dr Gonsalez
[2016-12-26] MEDS ORDERED: Magnesium Hydroxide 400 MG/5 ML Susp 30 ML Cup PO ONE (10:15)
[2016-12-26] MEDS: Potassium Chloride 20 MEQ Tab.ER PO SCH (17:26)
[2016-12-26] MEDS: Morphine 15 MG Tab PO PRN (21:43)
[2016-12-26] MEDS: traZODone 50 MG Tab PO SCH (21:44)
[2016-12-26] MEDS: Escitalopram 10 MG Tab PO SCH (21:44)
[2016-12-26] MEDS: Azithromycin 250 MG Tab PO SCH (21:45)
[2016-12-26] MEDS: Metoprolol Succinate 25 MG Tab.ER PO SCH (21:45)
[2016-12-26] MEDS: Simvastatin 20 MG Tab PO SCH (22:23)
[2016-12-27] MEDS: Albuterol/Ipratropium 3.0-0.5 MG/3 ML Neb Soln INH SCH ×2 (07:16→11:14)
[2016-12-27] MEDS: Formoterol/Mometasone 200-5 MCG 8.8 GM Inhaler IH SCH (07:16)
[2016-12-27] MEDS: Bumetanide 1 MG Tab PO SCH (07:46)
[2016-12-27] MEDS: Verapamil 180 MG Tab.ER PO SCH (07:49)
[2016-12-27] MEDS: Isosorbide Mononitrate 30 MG Tab.ER PO SCH (07:49)
[2016-12-27] MEDS: Pantoprazole 40 MG Tab.CR PO SCH (07:50)
[2016-12-27] MEDS: Insulin Aspart 100 Units/ML 3 ML Pen SUBCUT SCH ×4 (07:50→12:02)
[2016-12-27] MEDS: Potassium Chloride 20 MEQ Tab.ER PO SCH (07:51)
[2016-12-27] MEDS: predniSONE 20 MG Tab PO SCH (07:52)
[2016-12-27] MEDS: Aspirin 81 MG Tab.Chew PO SCH (08:03)
[2016-12-27] MEDS: Lactobacillus Rhamnosus GG (Probiotic) Cap PO SCH (08:04)
[2016-12-27] MEDS: Folic Acid 1 MG Tab PO SCH (08:05)
[2016-12-27] MEDS: Gabapentin 300 MG Cap PO SCH (08:06)
[2016-12-27] MEDS: Enoxaparin 40 MG/0.4 ML Syringe SUBCUT SCH (08:06)
[2016-12-27] MEDS: Magnesium Oxide 400 MG Tab PO SCH (08:06)
[2016-12-27] MEDS: Cefdinir 300 MG Cap PO SCH (08:07)
[2016-12-27] MEDS: Oxybutynin 5 MG Tab PO SCH (08:07)
[2016-12-27] MEDS: Lisinopril 20 MG Tab PO SCH (08:07)
[2016-12-27] MEDS: Insulin Detemir 100 Units/ML 3 ML Pen SUBCUT SCH (08:08)
[2016-12-27 11:10] VITALS: BP 147/66
--- NOTE | 2016-12-27 12:00 | PCM.DCSUM1 ---
Discharge Summary - Hospital Course Brief History: Dipti is a 61-year-old woman who was admitted through the emergency department with increased shortness of breath and cough secondary to left lung pneumonia. - Discharge Data Discharge Date: 12/27/16 Discharge Disposition: Home, Self-Care 01 Condition: Fair - Discharge Diagnosis/Problem(s) (1) Pneumonia involving left lung SNOMED Code(s): 747480217 ICD Code: J18.9 - PNEUMONIA, UNSPECIFIED ORGANISM Status: Acute Current Visit: Yes Qualifiers: Pneumonia type: due to unspecified organism Lung location: lower lobe of lung Qualified Code(s): J18.1 - Lobar pneumonia, unspecified organism (2) COPD (chronic obstructive pulmonary disease) SNOMED Code(s): 51282467 ICD Code: J44.9 - CHRONIC OBSTRUCTIVE PULMONARY DISEASE, UNSPECIFIED Status : Chronic Priority: High Current Visit: Yes Qualifiers: COPD type: unspecified COPD Qualified Code(s): J44.9 - Chronic obstructive pulmonary disease, unspecified (3) (HFpEF) heart failure with preserved ejection fraction SNOMED Code(s): 32083182 ICD Code: I50.30 - UNSPECIFIED DIASTOLIC (CONGESTIVE) HEART FAILURE Status : Chronic Current Visit: No (4) Diabetes mellitus type 2 SNOMED Code(s): 00145913 ICD Code: E11.9 - TYPE 2 DIABETES MELLITUS WITHOUT COMPLICATIONS Status: Chronic Priority: High Current Visit: No - Patient Summary/Data Hospital Course: Ms. Daniel is a 61-year-old woman who is admitted through the emergency department with a left lung pneumonia. She developed symptoms of shortness of breath and cough which for the most part was nonproductive. Chest x-ray showed evidence of an infiltrate in the left lung and her white blood cell count was elevated. There was no evidence of sepsis at the time of admission. Blood cultures were obtained and she was started on IV antibiotic therapy using Rocephin and azithromycin. Cultures remain negative throughout the hospital stay. She was also given IV Solu-Medrol and nebulizer therapy. Blood sugars were monitored 4 times daily and she was given supplemental insulins as needed, with use of the steroids her blood sugars were fairly high for the first few days but improved as steroid dose was decreased. Potassium was noted to be elevated at the time of admission and her spironolactone was held, the following day potassium and gone up further and she was given a dose of Kayexalate. Potassium did return to normal range with these interventions and at the time of discharge her dose of spironolactone will be decreased to once daily. She was given additional diuretics through her hospital stay and had no significant peripheral edema at the time of discharge. She will be on oral antibiotic therapy for an additional 2 days. Activity will be as tolerated and she will resume her usual consistent carb 2 g sodium diet. Follow-up appointment will be scheduled with Dr. Issa within one week, BMP will be obtained at the time of follow-up appointment. - Patient Instructions Diet: Low Sodium, Diabetic Diet Activity: As Tolerated Other/Special Instructions: Schedule follow-up appointment with Dr. Issa within one week. BMP should be obtained at the time of that appointment. - Discharge Plan Prescriptions/Med Rec: Cefdinir [IJD: Cefdinir] 300 mg PO BID #4 capsule Spironolactone [Aldactone] 25 mg PO DAILY #30 tablet Home Medications: Home Meds Albuterol [Ventolin HFA] 2 puff INH ASDIRECTED PRN 03/01/13 [History] Escitalopram [Lexapro] 30 mg PO BEDTIME 03/01/13 [History] Ipratropium/Albuterol Sulfate [Duoneb 0.5 MG-3 MG/3 ML] 3 ml INH QID 03/01/13 [ History] Metoprolol Succinate [Toprol XL] 25 mg PO BEDTIME 03/01/13 [History] Verapamil HCl [Verelan] 180 mg PO BIDAC 03/01/13 [History] Aspirin 81 mg PO DAILY 08/30/13 [History] Simvastatin [Zocor] 10 mg PO BEDTIME 08/30/13 [History] Magnesium Oxide 400 mg PO BID 09/01/13 [History] Lactobacillus Acidophilus [Probiotic] 1 cap PO BID 04/05/14 [History] Cyclobenzaprine [Flexeril] 10 mg PO TID PRN 09/27/14 [History] Folic Acid 1 mg PO DAILY 09/27/14 [History] metFORMIN [Glucophage] 850 mg PO BID 09/27/14 [History] Gabapentin [Neurontin] 300 mg PO BID 03/28/15 [History] Lisinopril 20 mg PO DAILY 03/28/15 [History] Oxybutynin [Oxybutynin ER] 10 mg PO DAILY 03/28/15 [History] Promethazine [Phenergan] 25 mg PO Q8H PRN 03/28/15 [History] traZODone 50 mg PO BEDTIME 03/28/15 [History] Potassium Chloride [Klor-Con M20] 20 meq PO BID #60 tab.er 07/29/15 [Rx] Cyanocobalamin (Vitamin B12) [Vitamin B12] 1,000 mcg IM Q30D 09/26/15 [History] Ergocalciferol (Vitamin D2) [Vitamin D2] 50,000 unit PO WEEKLY 09/26/15 [History ] Ferrous Sulfate 325 mg PO DAILY 09/26/15 [History] Fluticasone/Salmeterol [Advair Diskus 500-50] 1 puff INH BID 12/05/15 [History] azaTHIOprine [Azathioprine] 150 mg PO DAILY 12/05/15 [History] Isosorbide Mononitrate [Isosorbide Mononitrate ER] 30 mg PO DAILY 04/12/16 [ History] Sucralfate [Carafate] 1 gm PO QIDACANDBED 05/10/16 [History] Insulin Aspart [NovoLOG] 10 unit SUBCUT TIDMEALS 06/05/16 [History] Pantoprazole [ProTONIX] 40 mg PO DAILY 07/13/16 [History] Clotrimazole [Mycelex] 10 mg PO ASDIRECTED 07/29/16 [History] Insulin Detemir [Levemir Flextouch] 30 units SQ BID #300 ml 08/28/16 [Rx] LORazepam [Ativan] 0.5 mg PO BID PRN #30 tablet 08/28/16 [Rx] Prednisone [IJD: predniSONE] 20 mg PO DAILY 10/28/16 [History] Bumetanide [Bumex] 2 mg PO ASDIRECTED #60 tablet 11/18/16 [Rx] Cefdinir [IJD: Cefdinir] 300 mg PO BID #4 capsule 12/27/16 [Rx] Spironolactone [Aldactone] 25 mg PO DAILY #30 tablet 12/27/16 [Rx] Referrals: Arnulfo Gonsalez MD [Physician] - - Patient Data Vitals - Most Recent: Last Vital Signs Temp 97.8 F 12/27/16 11:08 Pulse 90 12/27/16 11:08 Resp 18 12/27/16 11:08 BP 147/66 H 12/27/16 11:08 Pulse Ox 94 L 12/27/16 11:08 Weight - Most Recent: 301 lb 4 oz I&O - Last 24 hours: Intake & Output 12/26/16 12/27/16 12/27/16 22:59 06:59 14:59 Intake Total 1120 Balance 1120 Med Orders - Current: Current Medications Acetaminophen (Tylenol) 650 mg PO Q4H PRN PRN Reason: Pain (Mild 1-3)/fever Last Admin: 12/26/16 21:44 Dose: 650 mg Albuterol (Proventil Neb Soln) 2.5 mg NEB Q4H PRN PRN Reason: Shortness Of Breath/wheezing Albuterol/Ipratropium (Duoneb 3.0-0.5 Mg/3 Ml) 3 ml INH QIDRT [facility] Last Admin: 12/27/16 07:16 Dose: 3 ml Aspirin (Aspirin) 81 mg PO DAILY [facility] Last Admin: 12/27/16 08:03 Dose: 81 mg Azathioprine (Imuran) 150 mg PO DAILY [facility] Last Admin: 12/27/16 08:05 Dose: 150 mg Azithromycin (Zithromax) 250 mg PO BEDTIME [facility] Last Admin: 12/26/16 21:45 Dose: 250 mg Benzonatate (Tessalon Perles) 100 mg PO TID PRN PRN Reason: Cough Bumetanide (Bumex) 4 mg PO ACBREAKFAST [facility] Last Admin: 12/27/16 07:46 Dose: 4 mg Bumetanide (Bumex) 2 mg PO DAILY@1400 [facility] Last Admin: 12/26/16 14:58 Dose: 2 mg Cefdinir (Omnicef) 300 mg PO BID [facility] Last Admin: 12/27/16 08:07 Dose: 300 mg Cyclobenzaprine HCl (Flexeril) 10 mg PO TID PRN PRN Reason: Pain Enoxaparin Sodium (Lovenox) 40 mg SUBCUT DAILY [facility] Last Admin: 12/27/16 08:06 Dose: 40 mg Escitalopram Oxalate (Lexapro) 30 mg PO BEDTIME [facility] Last Admin: 12/26/16 21:44 Dose: 30 mg Folic Acid (Folic Acid) 1 mg PO DAILY [facility] Last Admin: 12/27/16 08:05 Dose: 1 mg Gabapentin (Neurontin) 300 mg PO BID [facility] Last Admin: 12/27/16 08:06 Dose: 300 mg Heparin Sodium (Porcine) (Heparin Lock Flush 100 Units/Ml) 500 units FLUSH ASDIRECTED PRN PRN Reason: IV Use Last Admin: 12/24/16 14:07 Dose: 500 units Insulin Aspart (Novolog) 10 unit SUBCUT TIDMEALS [facility] Last Admin: 12/27/16 07:50 Dose: 10 unit Insulin Aspart (Novolog) 0 unit SUBCUT QIDACANDBED [facility] PRN Reason: Protocol Last Admin: 12/27/16 07:52 Dose: 2 units Insulin Detemir (Levemir) 40 unit SUBCUT BID [facility] Last Admin: 12/27/16 08:08 Dose: 40 units Isosorbide Mononitrate (Imdur) 30 mg PO DAILY@0730 [facility] Last Admin: 12/27/16 07:49 Dose: 30 mg Lactobacillus Rhamnosus (Culturelle) 1 cap PO BID [facility] Last Admin: 12/27/16 08:04 Dose: 1 cap Lisinopril (Prinivil) 20 mg PO DAILY [facility] Last Admin: 12/27/16 08:07 Dose: 20 mg Lorazepam (Ativan) 0.5 mg PO BID PRN PRN Reason: Anxiety Last Admin: 12/25/16 11:26 Dose: 0.5 mg Magnesium Oxide (Magnesium Oxide) 400 mg PO BID [facility] Last Admin: 12/27/16 08:06 Dose: 400 mg Metformin HCl (Glucophage) 850 mg PO BIDMEALS [facility] Last Admin: 12/27/16 07:51 Dose: 850 mg Metoprolol Succinate (Toprol Xl) 25 mg PO BEDTIME [facility] Last Admin: 12/26/16 21:45 Dose: 25 mg Mometasone Furoate/Formoterol Fumar (Dulera 200-5 Mcg) 0 puff IH BIDRT [facility] Last Admin: 12/27/16 07:16 Dose: 2 puff Morphine Sulfate (Morphine) 15 mg PO Q4H PRN PRN Reason: Pain (moderate 4-6) Last Admin: 12/26/16 21:43 Dose: 15 mg Ondansetron HCl (Zofran Odt) 4 mg PO Q6H PRN PRN Reason: Nausea able to take PO Last Admin: 12/26/16 01:42 Dose: 4 mg Oxybutynin Chloride (Oxybutynin) 5 mg PO BID [facility] Last Admin: 12/27/16 08:07 Dose: 5 mg Pantoprazole Sodium (Protonix) 40 mg PO ACBREAKFAST [facility] Last Admin: 12/27/16 07:50 Dose: 40 mg Polyethylene Glycol (Miralax) 17 gm PO DAILY PRN PRN Reason: Constipation Potassium Chloride (Klor-Con M20) 20 meq PO BIDMEALS [facility] Last Admin: 12/27/16 07:51 Dose: 20 meq Prednisone (Prednisone) 20 mg PO WITHBREAKFAST [facility] Last Admin: 12/27/16 07:52 Dose: 20 mg Promethazine HCl (Phenergan) 25 mg PO Q8H PRN PRN Reason: Nausea Senna/Docusate Sodium (Senna Plus) 1 tab PO BID PRN PRN Reason: Constipation Simvastatin (Zocor) 10 mg PO BEDTIME [facility] Last Admin: 12/26/16 22:23 Dose: 10 mg Trazodone HCl (Trazodone) 50 mg PO BEDTIME [facility] Last Admin: 12/26/16 21:44 Dose: 50 mg Verapamil HCl (Calan Sr) 180 mg PO BIDAC [facility] Last Admin: 12/27/16 07:49 Dose: 180 mg Discontinued Medications Albuterol/Ipratropium (Duoneb 3.0-0.5 Mg/3 Ml) 3 ml INH QID [facility] Last Admin: 12/23/16 05:45 Dose: 3 ml Escitalopram Oxalate (Lexapro) 30 mg PO BEDTIME [facility] Last Admin: 12/22/16 21:58 Dose: Not Given Hydromorphone HCl (Dilaudid) 0.5 mg IVPUSH ONETIME ONE Stop: 12/22/16 19:06 Last Admin: 12/22/16 19:29 Dose: 0.5 mg Hydromorphone HCl (Dilaudid) 0.5 - 1 mg IVPUSH Q2H PRN PRN Reason: Pain (severe 7-10) Last Admin: 12/24/16 14:07 Dose: 0.5 mg Hydromorphone HCl (Dilaudid) 0.5 mg IVPUSH ONETIME ONE Stop: 12/25/16 17:43 Last Admin: 12/25/16 17:51 Dose: 0.5 mg Azithromycin 500 mg/ Sodium (Chloride) 250 mls @ 250 mls/hr IV Q24H [facility] Last Admin: 12/22/16 20:11 Dose: 250 mls/hr Ceftriaxone Sodium 2 gm/ (Sodium Chloride) 50 mls @ 100 mls/hr IV Q24H [facility] Last Admin: 12/23/16 19:07 Dose: 100 mls/hr Azithromycin 500 mg/ Sodium (Chloride) 250 mls @ 250 mls/hr IV Q24H [facility] Last Admin: 12/23/16 20:55 Dose: 250 mls/hr Insulin Aspart (Novolog) 15 unit SUBCUT ONETIME STA Stop: 12/23/16 06:50 Last Admin: 12/23/16 10:02 Dose: 15 units Insulin Aspart (Novolog) 15 unit SUBCUT ONETIME ONE Stop: 12/23/16 09:41 Last Admin: 12/23/16 12:30 Dose: Not Given Insulin Aspart (Novolog) 15 unit SUBCUT ONETIME ONE Stop: 12/23/16 16:38 Last Admin: 12/23/16 17:02 Dose: 15 units Insulin Aspart (Novolog) 0 unit SUBCUT ONETIME ONE Stop: 12/24/16 06:29 Last Admin: 12/24/16 06:37 Dose: 15 units Insulin Detemir (Levemir) 30 unit SUBCUT BID [facility] Last Admin: 12/23/16 10:01 Dose: 30 units Magnesium Hydroxide (Milk Of Magnesia) 30 ml PO ONETIME ONE Stop: 12/26/16 10:16 Last Admin: 12/26/16 12:23 Dose: Not Given Metformin HCl (Glucophage) 850 mg PO BID [facility] Last Admin: 12/22/16 21:58 Dose: Not Given Methylprednisolone Sodium Succinate (Solu-Medrol) 62.5 mg IVPUSH Q8H [facility] Last Admin: 12/23/16 15:18 Dose: 62.5 mg Mometasone Furoate/Formoterol Fumar (Dulera 200-5 Mcg) 0 puff IH BIDRT [facility] Last Admin: 12/23/16 07:15 Dose: 2 puff Prednisone (Prednisone) 40 mg PO WITHBREAKFAST [facility] Last Admin: 12/24/16 07:44 Dose: 40 mg Sodium Polystyrene Sulfonate (Kayexalate) 15 gm PO ONETIME ONE Stop: 12/23/16 09:01 Last Admin: 12/23/16 12:30 Dose: 15 gm Spironolactone (Aldactone) 25 mg PO BIDDIURETIC OSMEL Last Admin: 12/23/16 10:09 Dose: Not Given *Q Meaningful Use (DIS) - VTE *Q VTE Criteria *Q: - Stroke *Q Stroke Criteria *Q: - AMI *Q AMI Criteria *Q:
[2016-12-27] MEDS: Morphine 15 MG Tab PO PRN (12:02)
== END 2016-12-27 12:58 | disposition home or self-care (01) | DRG 139 ==
LOC: JP.ED 17:45 → JP.MS 19:07
PROVIDERS: ADMIT Internal Medicine; ATTEND Hospitalist
DX: J18.1 Lobar pneumonia, unspecified organism (principal); J44.9 Chronic obstructive pulmonary disease, unspecified; R09.02 Hypoxemia; I11.0 Hypertensive heart disease with heart failure; I50.30 Unspecified diastolic (congestive) heart failure; M06.9 Rheumatoid arthritis, unspecified; Z87.01 Personal history of pneumonia (recurrent); Z99.81 Dependence on supplemental oxygen; K21.9 Gastro-esophageal reflux disease without esophagitis; M54.9 Dorsalgia, unspecified; M89.29 Other disorders of bone development and growth, multiple sites; M19.90 Unspecified osteoarthritis, unspecified site; E11.9 Type 2 diabetes mellitus without complications; F41.9 Anxiety disorder, unspecified; Z79.4 Long term (current) use of insulin; F32.9 Major depressive disorder, single episode, unspecified; E53.8 Deficiency of other specified B group vitamins; Z87.891 Personal history of nicotine dependence; H54.7 Unspecified visual loss; E87.5 Hyperkalemia; Z79.82 Long term (current) use of aspirin; Z79.52 Long term (current) use of systemic steroids; Z88.1 Allergy status to other antibiotic agents
CPT/HCPCS: 36415; 71010; 71010-26; 80048; 80053; 81001; 82962; 83735; 85025; 85027; 94640-76; 96365; 96367; 96375; 99285-25; A9270-GY; J0456; J0696; J1170; J1642; J1650; J2930; J7050; J7500; J7620

== ENCOUNTER 2017-01-19 15:29 | Inpatient (IN) | payer BC, MEDICAID ==
[2017-01-19] MEDS ORDERED: Bumetanide 2.5 MG/10 ML MDV IVPUSH ONE (16:24)
[2017-01-19] MEDS ORDERED: methylPREDNISolone Sodium Succinate 125 MG/2 ML SDV IVPUSH ONE (17:06)
--- NOTE | 2017-01-19 17:23 | PCM.HP ---
H&P History of Present Illness - General Date of Service: 01/19/17 Admit Problem/Dx: Admission Diagnosis/Problem Admission Diagnosis/Problem Bronchitis Source of Information: Patient, Provider History Limitations: Reports: No Limitations - History of Present Illness Initial Comments - Free Text/Narative: Elizabeth presents to the emergency room today with approximately 4 days of progressive shortness of breath and dyspnea on exertion. She has had a progressive dry cough over the past few days and subjective fevers at home. She reports a 7-8 pound weight gain over the past 2 days. She feels very short of breath at rest and extremely short of breath with any activity. She has been using her nebulizers frequently and gets very little relief from them, especially over the past 2 days. She has developed orthopnea. She has noted mild lower extremity edema from her baseline. She reports some mild intermittent nausea but no heartburn symptoms. No change in bowel or bladder habits. Appetite has been okay. Blood sugars are moderately elevated but close to her norm. She has not been around anybody ill and has not traveled. She has not been on antibiotics or had increased steroids for approximately 3 weeks. Workup in the emergency room has been reassuring so far. She is in mild respiratory distress and extremely symptomatic and will be admitted for management of presumed bronchitis and a COPD exacerbation. Right Chest Pain Score (Numeric/FACES): 7 - Related Data Allergies/Adverse Reactions: Allergies Allergy/AdvReac Type Severity Reaction Status Date / Time cephalexin monohydrate Allergy Unknown flusing Verified 01/19/17 17:09 [From Keflex] levofloxacin [Levofloxacin] Allergy Rash Verified 01/19/17 17:09 amoxicillin [Amoxicillin] AdvReac Vomiting Verified 01/19/17 17:09 amoxicillin trihydrate AdvReac Vomiting Verified 01/19/17 17:09 [From Augmentin] erythromycin base AdvReac Nausea and Verified 01/19/17 17:09 [Erythromycin Base] Vomiting potassium clavulanate AdvReac Vomiting Verified 01/19/17 17:09 [From Augmentin] Home Medications: Home Meds Albuterol [Ventolin HFA] 2 puff INH ASDIRECTED PRN 03/01/13 [History] Escitalopram [Lexapro] 30 mg PO BEDTIME 03/01/13 [History] Ipratropium/Albuterol Sulfate [Duoneb 0.5 MG-3 MG/3 ML] 3 ml INH QID 03/01/13 [ History] Metoprolol Succinate [Toprol XL] 25 mg PO BEDTIME 03/01/13 [History] Verapamil HCl [Verelan] 180 mg PO BIDAC 03/01/13 [History] Aspirin 81 mg PO DAILY 08/30/13 [History] Simvastatin [Zocor] 10 mg PO BEDTIME 08/30/13 [History] Magnesium Oxide 400 mg PO BID 09/01/13 [History] Lactobacillus Acidophilus [Probiotic] 1 cap PO BID 04/05/14 [History] Cyclobenzaprine [Flexeril] 10 mg PO TID PRN 09/27/14 [History] Folic Acid 1 mg PO DAILY 09/27/14 [History] metFORMIN [Glucophage] 850 mg PO BID 09/27/14 [History] Gabapentin [Neurontin] 300 mg PO BID 03/28/15 [History] Lisinopril 20 mg PO DAILY 03/28/15 [History] Oxybutynin [Oxybutynin ER] 10 mg PO DAILY 03/28/15 [History] Promethazine [Phenergan] 25 mg PO Q8H PRN 03/28/15 [History] traZODone 50 mg PO BEDTIME 03/28/15 [History] Potassium Chloride [Klor-Con M20] 20 meq PO BID #60 tab.er 07/29/15 [Rx] Cyanocobalamin (Vitamin B12) [Vitamin B12] 1,000 mcg IM Q30D 09/26/15 [History] Ergocalciferol (Vitamin D2) [Vitamin D2] 50,000 unit PO WEEKLY 09/26/15 [History ] Ferrous Sulfate 325 mg PO DAILY 09/26/15 [History] Fluticasone/Salmeterol [Advair Diskus 500-50] 1 puff INH BID 12/05/15 [History] azaTHIOprine [Azathioprine] 150 mg PO DAILY 12/05/15 [History] Isosorbide Mononitrate [Isosorbide Mononitrate ER] 30 mg PO DAILY 04/12/16 [ History] Sucralfate [Carafate] 1 gm PO QIDACANDBED 05/10/16 [History] Insulin Aspart [NovoLOG] 10 unit SUBCUT TIDMEALS 06/05/16 [History] Pantoprazole [ProTONIX] 40 mg PO DAILY 07/13/16 [History] Clotrimazole [Mycelex] 10 mg PO ASDIRECTED 07/29/16 [History] Insulin Detemir [Levemir Flextouch] 30 units SQ BID #300 ml 08/28/16 [Rx] LORazepam [Ativan] 0.5 mg PO BID PRN #30 tablet 08/28/16 [Rx] Prednisone [IJD: predniSONE] 20 mg PO DAILY 10/28/16 [History] Bumetanide [Bumex] 2 mg PO ASDIRECTED #60 tablet 11/18/16 [Rx] Cefdinir [IJD: Cefdinir] 300 mg PO BID #4 capsule 12/27/16 [Rx] Spironolactone [Aldactone] 25 mg PO DAILY #30 tablet 12/27/16 [Rx] Past Medical History HEENT History: Reports: Impaired Vision Cardiovascular History: Reports: Heart Failure, Hypertension, SOB on Exertion, Other (See Below) Other Cardiovascular History: diastolic congestive heart failure Respiratory History: Reports: Asthma, Bronchitis, Recurrent, COPD, Pneumonia, Recurrent, SOB, Other (See Below) Other Respiratory History: Home O2 and nebs Gastrointestinal History: Reports: Cholelithiasis, GERD, Other (See Below) Other Gastrointestinal History: history of bezoars Genitourinary History: Reports: Urinary Incontinence, Other (See Below) Other Genitourinary History: mass by bladder taken out non cancer MIXER BLENDER History: Reports: PID, Musculoskeletal History: Reports: Back Pain, Chronic, Osteoarthritis, RA Neurological History: Reports: Migraines Psychiatric History: Reports: Anxiety, Depression, Panic Attack Endocrine/Metabolic History: Reports: Diabetes, Type II, Obesity/BMI 30+ Hematologic History: Reports: B12 Deficiency Immunologic History: Reports: Other (See Below) Other Immunologic History: on medication that affects immunity - Infectious Disease History Infectious Disease History: Reports: Chicken Pox, Measles, Mumps, Rubella - Past Surgical History HEENT Surgical History: Reports: Cataract Surgery, Tonsillectomy GI Surgical History: Reports: Cholecystectomy Female Surgical History: Reports: Breast Biopsy, Hysterectomy, Tubal Ligation Musculoskeletal Surgical History: Reports: Knee Replacement Social & Family History - Family History Family Medical History: Noncontributory HEENT: Reports: Cataract Cardiac: Reports: CAD Respiratory: Reports: Asthma : Reports: Other (See Below) Other Family History: mom kidney CA Musculoskeletal: Reports: Arthritis, RA Neurological: Reports: CVA, Seizure Endocrine/Metabolic: Reports: Diabetes, type II - Tobacco Use Smoking Status *Q: Unknown Ever Smoked Years of Tobacco use: 15 Packs/Tins Daily: 1 Used Tobacco, but Quit: No Month Tobacco Last Used: 35 years Second Hand Smoke Exposure: No - Caffeine Use Caffeine Use: Reports: None Other Caffeine Use: 3 bottles a day - Alcohol Use Days Per Week of Alcohol Use: 0 - Recreational Drug Use Recreational Drug Use: No - Living Situation & Occupation Living situation: Reports: , with Spouse H&P Review of Systems - Review of Systems: Review Of Systems: See Below Free Text/Narrative: A complete 12 point review of systems was obtained. Pertinent positives and negatives are noted in the history of present illness. All other systems were reviewed and were negative except as noted. Exam - Exam Exam: See Below - Vital Signs Vital Signs: Last Vital Signs Temp 37.4 C 01/19/17 15:57 Pulse 103 H 01/19/17 15:57 Resp 24 H 01/19/17 15:57 BP 126/92 H 01/19/17 16:49 Pulse Ox 91 L 01/19/17 15:57 Weight: 136.531 kg - Exam Quality Assessment: Supplemental Oxygen. No: Urinary Catheter General: Alert, Oriented, Cooperative, Mild Distress HEENT: Conjunctiva Clear, Mucosa Moist & Enders. No: Scleral Icterus Neck: Supple, Trachea Midline. No: Lymphadenopathy, JVD Lungs: Normal Respiratory Effort, Rales ( at the bases), Other (prolonged expiratory phase). No: Wheezing Cardiovascular: Regular Rate, Regular Rhythm. No: Systolic Murmur Back Exam: Normal Inspection, Full Range of Motion Extremities: Pedal Edema (mild bilateral ankle edema). No: Joint Swelling, Increased Warmth Peripheral Pulses: 2+: Dorsalis Pedis (L), Dorsalis Pedis (R) Skin: Warm, Dry, Intact Neuro Extensive - Mental Status: Alert, Oriented x3, Nl Response to Commands Neuro Extensive - Motor, Sensory, Reflexes: CN II-XII Intact. No: Dysarthria, Abnormal Motor, Tremor Psychiatric: Alert, Normal Affect - Patient Data Lab Results Last 24 hrs: Laboratory Results - last 24 hr 08/01/19/17 01/19/17 Range/Units 16:20 16:20 16:21 WBC 11.8 H (4.5-11.0) K/uL RBC 4.45 (3.30-5.50) M/uL Hgb 12.3 (12.0-15.0) g/dL Hct 40.1 (36.0-48.0) % MCV 90 (80-98) fL MCH 28 (27-31) pg MCHC 31 L (32-36) % Plt Count 305 (150-400) K/uL Neut % (Auto) 89 H (36-66) % Lymph % (Auto) 7 L (24-44) % [place] % (Auto) 4 (2-6) % Eos % (Auto) 1 L (2-4) % Baso % (Auto) 0 (0-1) % PT 9.9 (9.5-12.0) sec INR 0.93 (0.80-1.20) ABG Hemoglobin (12.0-16.0) g/dL ABG Oxyhemoglobin % ABG Carboxyhemoglobin (0.0-1.6) % ABG Methemoglobin % VBG pH (7.350-7.450) VBG pCO2 mm/Hg VBG pO2 mm/Hg VBG HCO3 mmol/L VBG Total CO2 mmol/L VBG O2 Saturation VBG O2 Content %vol VBG Base Excess mm/L O2 Delivery Device Sodium 142 (140-148) mmol/L Potassium 4.8 (3.6-5.2) mmol/L Chloride 103 (100-108) mmol/L Carbon Dioxide 32 (21-32) mmol/L Anion Gap 6.9 (5.0-14.0) mmol/L BUN 20 H (7-18) mg/dL Creatinine 1.1 H (0.6-1.0) mg/dL Est Cr Clr Drug Dosing 47.03 mL/min Estimated GFR (MDRD) 50 L (>60) Glucose 340 H (74-106) mg/dL Calcium 9.1 (8.5-10.1) mg/dL Total Bilirubin 0.1 L (0.2-1.0) mg/dL AST 11 L (15-37) U/L ALT 18 (12-78) U/L Alkaline Phosphatase 95 (46-116) U/L Troponin I < 0.017 (0.000-0.056) ng/mL [id number]-Mzhehqfpgyr Pept 112 (5-125) pg/mL Total Protein 6.8 (6.4-8.2) g/dL Albumin 3.2 L (3.4-5.0) g/dL Globulin 3.6 H (2.3-3.5) g/dL Albumin/Globulin Ratio 0.9 L (1.2-2.2) 01/19/17 Range/Units 16:21 WBC (4.5-11.0) K/uL RBC (3.30-5.50) M/uL Hgb (12.0-15.0) g/dL Hct (36.0-48.0) % MCV (80-98) fL MCH (27-31) pg MCHC (32-36) % Plt Count (150-400) K/uL Neut % (Auto) (36-66) % Lymph % (Auto) (24-44) % [place] % (Auto) (2-6) % Eos % (Auto) (2-4) % Baso % (Auto) (0-1) % PT (9.5-12.0) sec INR (0.80-1.20) ABG Hemoglobin 12.5 (12.0-16.0) g/dL ABG Oxyhemoglobin 68.8 % ABG Carboxyhemoglobin 1.5 (0.0-1.6) % ABG Methemoglobin 0.9 % VBG pH 7.366 (7.350-7.450) VBG pCO2 52.8 mm/Hg VBG pO2 40.7 mm/Hg VBG HCO3 29.5 mmol/L VBG Total CO2 26.9 mmol/L VBG O2 Saturation 70.5 VBG O2 Content 12.1 %vol VBG Base Excess 3.6 mm/L O2 Delivery Device Room air Sodium (140-148) mmol/L Potassium (3.6-5.2) mmol/L Chloride (100-108) mmol/L Carbon Dioxide (21-32) mmol/L Anion Gap (5.0-14.0) mmol/L BUN (7-18) mg/dL Creatinine (0.6-1.0) mg/dL Est Cr Clr Drug Dosing mL/min Estimated GFR (MDRD) (>60) Glucose (74-106) mg/dL Calcium (8.5-10.1) mg/dL Total Bilirubin (0.2-1.0) mg/dL AST (15-37) U/L ALT (12-78) U/L Alkaline Phosphatase (46-116) U/L Troponin I (0.000-0.056) ng/mL [id number]-G-Zjeuqcchtrw Pept (5-125) pg/mL Total Protein (6.4-8.2) g/dL Albumin (3.4-5.0) g/dL Globulin (2.3-3.5) g/dL Albumin/Globulin Ratio (1.2-2.2) Result Diagrams: 01/19/17 16:20 01/19/17 16:20 Imaging Impressions Last 24 hrs: chest x-ray - images personally reviewed - lungs appear clear with no infiltrate , effusion or mass. Heart size is normal. There does appear to be a mild increase in the density over the lower portions of the chest but I suspect that this is shadowing due to breast tissue EKG INTERPRETATION EKG Date: 01/19/17 Rhythm: NSR Rate (Beats/Min): 96 [place]: Normal P-Wave: Present QRS: Normal ST-T: Normal QT: Normal Comparison: No Change *Q Meaningful Use (ADM) - VTE *Q VTE Criteria *Q: - VTE Risk Assess *Q Each Risk Factor Represents 1 Point: Swollen Legs, Current, Congestive Heart Failure, Less than 1 Month, Serious Lung Disease Including Pneumonia, Less than 1 Month, Abnormal Pulmonary Function (COPD) Total Score 1 Point Risk Factors: 4 Each Risk Factor Represents 2 Points: Age 60 - 74 Years Total Score 2 Point Risk Factors: 2 Each Risk Factor Represents 3 Points: BMI Greater than 50 (Venous Stasis Syndrome) Total Score 3 Point Risk Factors: 3 Each Risk Factor Represents 5 Points: None Total Score 5 Point Risk Factors: 0 Venous Thromboembolism Risk Factor Score *Q: 9 - Stroke *Q Stroke Criteria *Q: - AMI *Q AMI Criteria *Q: - Problem List (1) Acute bronchitis SNOMED Code(s): 50024242 ICD Code: J20.9 - ACUTE BRONCHITIS, UNSPECIFIED Status: Acute Current Visit: Yes Qualifiers: Bronchitis organism: unspecified organism Qualified Code(s): J20.9 - Acute bronchitis, unspecified (2) COPD with acute exacerbation SNOMED Code(s): 092803166 ICD Code: J44.1 - CHRONIC OBSTRUCTIVE PULMONARY DISEASE W (ACUTE) EXACERBATION Status: Acute Current Visit: Yes (3) (HFpEF) heart failure with preserved ejection fraction SNOMED Code(s): 59298727 ICD Code: I50.30 - UNSPECIFIED DIASTOLIC (CONGESTIVE) HEART FAILURE Status : Chronic Current Visit: No (4) Diabetes mellitus type 2 SNOMED Code(s): 72203002 ICD Code: E11.9 - TYPE 2 DIABETES MELLITUS WITHOUT COMPLICATIONS Status: Chronic Priority: High Current Visit: No (5) Rheumatoid arthritis SNOMED Code(s): 72206038 ICD Code: M06.9 - RHEUMATOID ARTHRITIS, UNSPECIFIED Status: Chronic Priority: Medium Current Visit: No Qualifiers: Rheumatoid arthritis location: unspecified site Rheumatoid factor presence : unspecified presence Qualified Code(s): M06.9 - Rheumatoid arthritis, unspecified Problem List Initiated/Reviewed/Updated: Yes Orders Last 24hrs: Active Orders 24 hr Category Date Time Status Patient Status Manage Transfer [TRANSFER] Routine ADT 01/19/17 17:07 Ordered EKG Documentation Completion [RC] ASDIRECTED Care 01/19/17 16:21 Active Chest 1V Frontal [CR] Stat Exams 01/19/17 16:21 Taken cefTAZidime [Fortaz] 1 gm Med 01/19/17 18:00 Active Sodium Chloride 0.9% [Normal Saline] 50 ml IV Q8H Resuscitation Status Routine Resus Stat 01/19/17 17:10 Ordered EKG 12 Lead [EK] Stat Ther 01/19/17 16:21 Ordered Medication Orders Ceftazidime 1 gm/ Sodium (Chloride) 50 mls @ 100 mls/hr IV Q8H [facility] Assessment/Plan Comment:: Assessment and plan - Acute bronchitis with acute COPD exacerbation - increasing cough, shortness of breath and low-grade fevers. History of similar episodes. She is on chronic prednisone therapy as well as additional immunosuppression for her rheumatoid arthritis. Borderline oxygenation on 3 L which is her baseline at home. Very symptomatic with activity and even short of breath at rest. Pleuritic chest pain is noncardiac and related to infection. -IV steroids -Antibiotic coverage with doxycycline and ceftazidime -Scheduled and as needed nebulizers -sputum culture if able -Pain control Heart failure with preserved ejection fraction - 8 pound weight gain over the past 2 days, likely related to acute lung disease rather than exacerbation of heart failure alone. She has received IV diuretic in the emergency room. -Restart medical management including beta marsha and twice daily diuretic Insulin-dependent diabetes mellitus - sugars often arise with after she has been started on steroids. Baseline is suboptimal control of her diabetes. -Diabetic diet -increase Levemir dosing to 40 units twice daily -12 units of NovoLog with meals -High dose sliding scale Chronic rheumatoid arthritis - no worsening of her joint symptoms from baseline. -Continue azathioprine Maintenance issues - - DVT prophylaxis - enoxaparin - GI prophylaxis - PPI - Nutrition - diabetic diet - Dougherty catheter - not indicated CODE STATUS - full code Admission justification - This patient will be admitted for inpatient services and is medically appropriate meeting medical necessity for inpatient admission as outlined in my documentation. I reasonably expect the patient will require inpatient services that span a period time over 2 midnights. I reasonably expect this patient to be discharged or transferred within 96 hours [facility]. Disposition - anticipate discharge to home after the hospital stay Primary care physician - Dr. Sunshine Bolivar M.D.
[2017-01-19] MEDS: cefTAZidime 1 GM in Sodium Chloride 0.9% 50 ML IV SCH (17:29)
--- NOTE | 2017-01-19 17:35 | EDM.PDOC ---
ED HPI GENERAL MEDICAL PROBLEM - General Chief Complaint: Respiratory Problem Stated Complaint: SOB Time Seen by Provider: 01/19/17 16:14 Source of Information: Reports: Patient, Provider History Limitations: Reports: No Limitations - History of Present Illness INITIAL COMMENTS - FREE TEXT/NARRATIVE: History of present illness: [61-year-old female presenting with progressive shortness of breath over last 34 days with an 8 pound weight gain. She does have a history of an underlying COPD and CHF. She feels like she is slipped into CHF once again and accompanied by that she does have chest pain which is typical for her. She is well known to our facility. She said no fevers chills or sweats she does have a minimally productive cough she is short of breath. ] Review of systems: As per history of present illness and below otherwise all systems reviewed and negative. Past medical history: As per history of present illness and as reviewed below otherwise noncontributory. Surgical history: As per history of present illness and as reviewed below otherwise noncontributory. Social history: No reported history of drug or alcohol abuse. Family history: As per history of present illness and as reviewed below otherwise noncontributory. Physical exam: HEENT: Atraumatic, normocephalic, pupils reactive, negative for conjunctival pallor or scleral icterus, mucous membranes moist, throat clear, neck supple, nontender, trachea midline. Lungs: Diminished breath sounds throughout but no crackles noted fair movement Heart: S1S2, regular, negative for clicks, rubs, or JVD. Abdomen: Soft, nondistended, nontender. Negative for masses or hepatosplenomegaly. Extremities: Atraumatic, negative for cords or calf pain. Neurovascular unremarkable. 1+ the edema Neuro: Awake, alert, oriented. Exam nonfocal. Diagnostics: [Chest x-ray suggestive of cardiomegaly it is a portable she has overlying body habitus shadowing the chest x-ray making it more difficult to interpret. Labs are pending] Therapeutics: [Bumex 5 mg IV has been ordered] Impression: [Exacerbation of COPD CHF] Plan: [Dr. Bolivar since seeing her and admitting her. She is well-known to the facility and requires admission for her to be able to be turned around] Definitive disposition and diagnosis as appropriate pending reevaluation and review of above. Right Chest Pain Score (Numeric/FACES): 7 - Related Data Allergies Allergy/AdvReac Type Severity Reaction Status Date / Time cephalexin monohydrate Allergy Unknown flusing Verified 01/19/17 17:09 [From Keflex] levofloxacin [Levofloxacin] Allergy Rash Verified 01/19/17 17:09 amoxicillin [Amoxicillin] AdvReac Vomiting Verified 01/19/17 17:09 amoxicillin trihydrate AdvReac Vomiting Verified 01/19/17 17:09 [From Augmentin] erythromycin base AdvReac Nausea and Verified 01/19/17 17:09 [Erythromycin Base] Vomiting potassium clavulanate AdvReac Vomiting Verified 01/19/17 17:09 [From Augmentin] Home Meds: Home Meds Albuterol [Ventolin HFA] 2 puff INH ASDIRECTED PRN 03/01/13 [History] Escitalopram [Lexapro] 30 mg PO BEDTIME 03/01/13 [History] Ipratropium/Albuterol Sulfate [Duoneb 0.5 MG-3 MG/3 ML] 3 ml INH QID 03/01/13 [ History] Metoprolol Succinate [Toprol XL] 25 mg PO BEDTIME 03/01/13 [History] Verapamil HCl [Verelan] 180 mg PO BIDAC 03/01/13 [History] Aspirin 81 mg PO DAILY 08/30/13 [History] Simvastatin [Zocor] 10 mg PO BEDTIME 08/30/13 [History] Magnesium Oxide 400 mg PO BID 09/01/13 [History] Lactobacillus Acidophilus [Probiotic] 1 cap PO BID 04/05/14 [History] Cyclobenzaprine [Flexeril] 10 mg PO TID PRN 09/27/14 [History] Folic Acid 1 mg PO DAILY 09/27/14 [History] metFORMIN [Glucophage] 850 mg PO BID 09/27/14 [History] Gabapentin [Neurontin] 300 mg PO BID 03/28/15 [History] Lisinopril 20 mg PO DAILY 03/28/15 [History] Oxybutynin [Oxybutynin ER] 10 mg PO DAILY 03/28/15 [History] Promethazine [Phenergan] 25 mg PO Q8H PRN 03/28/15 [History] traZODone 50 mg PO BEDTIME 03/28/15 [History] Potassium Chloride [Klor-Con M20] 20 meq PO BID #60 tab.er 07/29/15 [Rx] Cyanocobalamin (Vitamin B12) [Vitamin B12] 1,000 mcg IM Q30D 09/26/15 [History] Ergocalciferol (Vitamin D2) [Vitamin D2] 50,000 unit PO WEEKLY 09/26/15 [History ] Ferrous Sulfate 325 mg PO DAILY 09/26/15 [History] Fluticasone/Salmeterol [Advair Diskus 500-50] 1 puff INH BID 12/05/15 [History] azaTHIOprine [Azathioprine] 150 mg PO DAILY 12/05/15 [History] Isosorbide Mononitrate [Isosorbide Mononitrate ER] 30 mg PO DAILY 04/12/16 [ History] Sucralfate [Carafate] 1 gm PO QIDACANDBED 05/10/16 [History] Insulin Aspart [NovoLOG] 10 unit SUBCUT TIDMEALS 06/05/16 [History] Pantoprazole [ProTONIX] 40 mg PO DAILY 07/13/16 [History] Clotrimazole [Mycelex] 10 mg PO ASDIRECTED 07/29/16 [History] Insulin Detemir [Levemir Flextouch] 30 units SQ BID #300 ml 08/28/16 [Rx] LORazepam [Ativan] 0.5 mg PO BID PRN #30 tablet 08/28/16 [Rx] Prednisone [IJD: predniSONE] 20 mg PO DAILY 10/28/16 [History] Bumetanide [Bumex] 2 mg PO ASDIRECTED #60 tablet 11/18/16 [Rx] Cefdinir [IJD: Cefdinir] 300 mg PO BID #4 capsule 12/27/16 [Rx] Spironolactone [Aldactone] 25 mg PO DAILY #30 tablet 12/27/16 [Rx] Past Medical History HEENT History: Reports: Impaired Vision Cardiovascular History: Reports: Heart Failure, Hypertension, SOB on Exertion, Other (See Below) Other Cardiovascular History: diastolic congestive heart failure Respiratory History: Reports: Asthma, Bronchitis, Recurrent, COPD, Pneumonia, Recurrent, SOB, Other (See Below) Other Respiratory History: Home O2 and nebs Gastrointestinal History: Reports: Cholelithiasis, GERD, Other (See Below) Other Gastrointestinal History: history of bezoars Genitourinary History: Reports: Urinary Incontinence, Other (See Below) Other Genitourinary History: mass by bladder taken out non cancer [employer] History: Reports: PID, Musculoskeletal History: Reports: Back Pain, Chronic, Osteoarthritis, RA Neurological History: Reports: Migraines Psychiatric History: Reports: Anxiety, Depression, Panic Attack Endocrine/Metabolic History: Reports: Diabetes, Type II, Obesity/BMI 30+ Hematologic History: Reports: B12 Deficiency Immunologic History: Reports: Other (See Below) Other Immunologic History: on medication that affects immunity - Infectious Disease History Infectious Disease History: Reports: Chicken Pox, Measles, Mumps, Rubella - Past Surgical History HEENT Surgical History: Reports: Cataract Surgery, Tonsillectomy GI Surgical History: Reports: Cholecystectomy Female Surgical History: Reports: Breast Biopsy, Hysterectomy, Tubal Ligation Musculoskeletal Surgical History: Reports: Knee Replacement Social & Family History - Family History Family Medical History: Noncontributory HEENT: Reports: Cataract Cardiac: Reports: CAD Respiratory: Reports: Asthma : Reports: Other (See Below) Other Family History: mom kidney CA Musculoskeletal: Reports: Arthritis, RA Neurological: Reports: CVA, Seizure Endocrine/Metabolic: Reports: Diabetes, type II - Tobacco Use Smoking Status *Q: Unknown Ever Smoked Years of Tobacco use: 15 Packs/Tins Daily: 1 Used Tobacco, but Quit: No Month Tobacco Last Used: 35 years Second Hand Smoke Exposure: No - Caffeine Use Caffeine Use: Reports: None Other Caffeine Use: 3 bottles a day - Alcohol Use Days Per Week of Alcohol Use: 0 - Recreational Drug Use Recreational Drug Use: No - Living Situation & Occupation Living situation: Reports: , with Spouse ED ROS GENERAL - Review of Systems Review Of Systems: ROS reveals no pertinent complaints other than HPI. ED EXAM, GENERAL - Physical Exam Exam: See Below Peripheral Pulses: 2+: Dorsalis Pedis (L), Dorsalis Pedis (R) Back Exam: Normal Inspection, Full Range of Motion Extremities: Pedal Edema (mild bilateral ankle edema). No: Joint Swelling, Increased Warmth Course - Vital Signs Last Recorded V/S: Last Vital Signs Temp 37.4 C 01/19/17 15:57 Pulse 103 H 01/19/17 15:57 Resp 24 H 01/19/17 15:57 BP 126/92 H 01/19/17 16:49 Pulse Ox 91 L 01/19/17 15:57 - Orders/Labs/Meds Orders: Active Orders 24 hr Category Date Time Status Patient Status Manage Transfer [TRANSFER] Routine ADT 01/19/17 17:07 Active EKG Documentation Completion [RC] ASDIRECTED Care 01/19/17 16:21 Active Chest 1V Frontal [CR] Stat Exams 01/19/17 16:21 Taken cefTAZidime [Fortaz] 1 gm Med 01/19/17 18:00 Active Sodium Chloride 0.9% [Normal Saline] 50 ml IV Q8H Resuscitation Status Routine Resus Stat 01/19/17 17:10 Ordered EKG 12 Lead [EK] Stat Ther 01/19/17 16:21 Ordered Medication Orders Ceftazidime 1 gm/ Sodium (Chloride) 50 mls @ 100 mls/hr IV Q8H OSMEL Last Admin: 01/19/17 17:29 Dose: 100 mls/hr Labs: Laboratory Tests 01/19/17 01/19/17 01/19/17 Range/Units 16:20 16:20 16:21 WBC 11.8 H (4.5-11.0) K/uL RBC 4.45 (3.30-5.50) M/uL Hgb 12.3 (12.0-15.0) g/dL Hct 40.1 (36.0-48.0) % MCV 90 (80-98) fL MCH 28 (27-31) pg MCHC 31 L (32-36) % Plt Count 305 (150-400) K/uL Neut % (Auto) 89 H (36-66) % Lymph % (Auto) 7 L (24-44) % [place] % (Auto) 4 (2-6) % Eos % (Auto) 1 L (2-4) % Baso % (Auto) 0 (0-1) % PT 9.9 (9.5-12.0) sec INR 0.93 (0.80-1.20) ABG Hemoglobin (12.0-16.0) g/dL ABG Oxyhemoglobin % ABG Carboxyhemoglobin (0.0-1.6) % ABG Methemoglobin % VBG pH (7.350-7.450) VBG pCO2 mm/Hg VBG pO2 mm/Hg VBG HCO3 mmol/L VBG Total CO2 mmol/L VBG O2 Saturation VBG O2 Content %vol VBG Base Excess mm/L O2 Delivery Device Sodium 142 (140-148) mmol/L Potassium 4.8 (3.6-5.2) mmol/L Chloride 103 (100-108) mmol/L Carbon Dioxide 32 (21-32) mmol/L Anion Gap 6.9 (5.0-14.0) mmol/L BUN 20 H (7-18) mg/dL Creatinine 1.1 H (0.6-1.0) mg/dL Est Cr Clr Drug Dosing 47.03 mL/min Estimated GFR (MDRD) 50 L (>60) Glucose 340 H (74-106) mg/dL Calcium 9.1 (8.5-10.1) mg/dL Total Bilirubin 0.1 L (0.2-1.0) mg/dL AST 11 L (15-37) U/L ALT 18 (12-78) U/L Alkaline Phosphatase 95 (46-116) U/L Troponin I < 0.017 (0.000-0.056) ng/mL Ues-Y-Hyrvmsyuunj Pept 112 (5-125) pg/mL Total Protein 6.8 (6.4-8.2) g/dL Albumin 3.2 L (3.4-5.0) g/dL Globulin 3.6 H (2.3-3.5) g/dL Albumin/Globulin Ratio 0.9 L (1.2-2.2) 01/19/ Range/Units 16:21 WBC (4.5-11.0) K/uL RBC (3.30-5.50) M/uL Hgb (12.0-15.0) g/dL Hct (36.0-48.0) % MCV (80-98) fL MCH (27-31) pg MCHC (32-36) % Plt Count (150-400) K/uL Neut % (Auto) (36-66) % Lymph % (Auto) (24-44) % [place] % (Auto) (2-6) % Eos % (Auto) (2-4) % Baso % (Auto) (0-1) % PT (9.5-12.0) sec INR (0.80-1.20) ABG Hemoglobin 12.5 (12.0-16.0) g/dL ABG Oxyhemoglobin 68.8 % ABG Carboxyhemoglobin 1.5 (0.0-1.6) % ABG Methemoglobin 0.9 % VBG pH 7.366 (7.350-7.450) VBG pCO2 52.8 mm/Hg VBG pO2 40.7 mm/Hg VBG HCO3 29.5 mmol/L VBG Total CO2 26.9 mmol/L VBG O2 Saturation 70.5 VBG O2 Content 12.1 %vol VBG Base Excess 3.6 mm/L O2 Delivery Device Room air Sodium (140-148) mmol/L Potassium (3.6-5.2) mmol/L Chloride (100-108) mmol/L Carbon Dioxide (21-32) mmol/L Anion Gap (5.0-14.0) mmol/L BUN (7-18) mg/dL Creatinine (0.6-1.0) mg/dL Est Cr Clr Drug Dosing mL/min Estimated GFR (MDRD) (>60) Glucose (74-106) mg/dL Calcium (8.5-10.1) mg/dL Total Bilirubin (0.2-1.0) mg/dL AST (15-37) U/L ALT (12-78) U/L Alkaline Phosphatase (46-116) U/L Troponin I (0.000-0.056) ng/mL Hty-C-Wmqshkvhapa Pept (5-125) pg/mL Total Protein (6.4-8.2) g/dL Albumin (3.4-5.0) g/dL Globulin (2.3-3.5) g/dL Albumin/Globulin Ratio (1.2-2.2) Meds: Medications Generic Name Dose Route Start Last Admin Trade Name Freq PRN Reason Stop Dose Admin Ceftazidime 1 gm/ Sodium 50 mls @ 100 mls/hr 01/19/17 18:00 01/19/17 17:29 Chloride IV 100 mls/hr Q8H OSMEL Administration Discontinued Medications Generic Name Dose Route Start Last Admin Trade Name Freq PRN Reason Stop Dose Admin Bumetanide 5 mg 01/19/17 16:24 01/19/17 16:49 Bumex IVPUSH 01/19/17 16:25 5 mg ONETIME ONE Administration Methylprednisolone Sodium Succinate 125 mg 01/19/17 17:06 01/19/17 17:28 Solu-Medrol IVPUSH 01/19/17 17:07 125 mg ONETIME ONE Administration Departure - Departure Time of Disposition: 17:34 Disposition: Admitted As Inpatient 64 Condition: Fair Clinical Impression: COPD exacerbation CHF (congestive heart failure) Qualifiers: Congestive heart failure type: combined Congestive heart failure chronicity: acute on chronic Qualified Code(s): I50.43 - Acute on chronic combined systolic (congestive) and diastolic (congestive) heart failure - Discharge Information Forms: ED Department Discharge - My Orders Last 24 Hours: My Active Orders 01/19/17 16:21 EKG Documentation Completion [RC] ASDIRECTED Chest 1V Frontal [CR] Stat EKG 12 Lead [EK] Stat - Assessment/Plan Last 24 Hours: My Active Orders 01/19/17 16:21 EKG Documentation Completion [RC] ASDIRECTED Chest 1V Frontal [CR] Stat EKG 12 Lead [EK] Stat
[2017-01-19] MEDS ORDERED: Albuterol 0.083% 2.5 MG/3 ML Neb Soln NEB PRN (17:49)
[2017-01-19] MEDS ORDERED: Benzonatate 100 MG Cap PO PRN (17:49)
[2017-01-19] MEDS ORDERED: Polyethylene Glycol 3350 Powder 17 GM Packet PO PRN (17:49)
[2017-01-19] MEDS ORDERED: Promethazine 25 MG Tab PO PRN (17:49)
[2017-01-19] MEDS: HYDROmorphone 0.5 MG/0.5 ML Syringe IVPUSH PRN ×3 (18:22→23:48)
[2017-01-19] MEDS: Ondansetron 4 MG Tab.DIS PO PRN (18:22)
[2017-01-19] MEDS: Doxycycline 100 MG in Sodium Chloride 0.9% 100 ML IV SCH (19:23)
[2017-01-19] MEDS: Insulin Aspart 100 Units/ML 3 ML Pen SUBCUT SCH ×3 (19:40→21:11)
[2017-01-19] MEDS ORDERED: Escitalopram 20 MG Tab PO SCH (21:00)
[2017-01-19] MEDS: Simvastatin 20 MG Tab PO SCH (21:51)
[2017-01-19] MEDS: Formoterol/Mometasone 200-5 MCG 8.8 GM Inhaler IH SCH (21:52)
[2017-01-19] MEDS: Lactobacillus Rhamnosus GG (Probiotic) Cap PO SCH (21:52)
[2017-01-19] MEDS: Metoprolol Succinate 25 MG Tab.ER PO SCH (21:54)
[2017-01-19] MEDS: Gabapentin 300 MG Cap PO SCH (21:54)
[2017-01-19] MEDS: Potassium Chloride 20 MEQ Tab.ER PO SCH (21:54)
[2017-01-19] MEDS: Acetaminophen 325 MG Tab PO PRN (21:59)
[2017-01-19] MEDS: Albuterol/Ipratropium 3.0-0.5 MG/3 ML Neb Soln NEB SCH (21:59)
[2017-01-19] MEDS: traZODone 50 MG Tab PO SCH (21:59)
[2017-01-19] MEDS: Sucralfate 1 GM Tab PO SCH (22:25)
[2017-01-19] MEDS ORDERED: Escitalopram 10 MG Tab ONE (22:27)
[2017-01-19] MEDS: Magnesium Oxide 400 MG Tab PO SCH (22:27)
[2017-01-20] MEDS ORDERED: methylPREDNISolone Sodium Succinate 125 MG/2 ML SDV IVPUSH SCH ×2 (01:30→10:00)
[2017-01-20] MEDS: cefTAZidime 1 GM in Sodium Chloride 0.9% 50 ML IV SCH ×3 (01:50→17:10)
[2017-01-20] MEDS: HYDROmorphone 0.5 MG/0.5 ML Syringe IVPUSH PRN ×3 (05:11→16:46)
[2017-01-20] MEDS: Doxycycline 100 MG in Sodium Chloride 0.9% 100 ML IV SCH ×2 (06:27→17:42)
[2017-01-20] MEDS: Formoterol/Mometasone 200-5 MCG 8.8 GM Inhaler IH SCH ×2 (07:11→20:21)
[2017-01-20] MEDS: Albuterol/Ipratropium 3.0-0.5 MG/3 ML Neb Soln NEB SCH ×4 (07:11→21:49)
[2017-01-20] MEDS: Insulin Aspart 100 Units/ML 3 ML Pen SUBCUT SCH ×7 (07:55→21:35)
[2017-01-20] MEDS: Sucralfate 1 GM Tab PO SCH ×2 (07:55→11:51)
[2017-01-20] MEDS: Insulin Detemir 100 Units/ML 3 ML Pen SUBCUT SCH ×2 (08:10→20:22)
[2017-01-20] MEDS: Bumetanide 1 MG Tab PO SCH ×2 (08:12→13:31)
[2017-01-20] MEDS: Isosorbide Mononitrate 30 MG Tab.ER PO SCH (08:13)
[2017-01-20] MEDS: Enoxaparin 40 MG/0.4 ML Syringe SUBCUT SCH (08:13)
[2017-01-20] MEDS: Lisinopril 20 MG Tab PO SCH (08:13)
[2017-01-20] MEDS: Lactobacillus Rhamnosus GG (Probiotic) Cap PO SCH ×2 (08:13→20:21)
[2017-01-20] MEDS: Folic Acid 1 MG Tab PO SCH (08:13)
[2017-01-20] MEDS: Aspirin 81 MG Tab.EC PO SCH (08:14)
[2017-01-20] MEDS: Spironolactone 25 MG Tab PO SCH (08:14)
[2017-01-20] MEDS: Gabapentin 300 MG Cap PO SCH ×2 (08:14→20:25)
[2017-01-20] MEDS: Oxybutynin 5 MG Tab PO SCH ×2 (08:14→20:25)
[2017-01-20] MEDS: Potassium Chloride 20 MEQ Tab.ER PO SCH ×2 (08:15→20:13)
[2017-01-20] MEDS: Verapamil 180 MG Tab.ER PO SCH ×2 (08:15→16:58)
[2017-01-20] MEDS: Magnesium Oxide 400 MG Tab PO SCH ×2 (08:15→20:25)
[2017-01-20] MEDS ORDERED: Pantoprazole 40 MG Tab.CR PO SCH (09:00)
[2017-01-20] MEDS: Ondansetron 4 MG Tab.DIS PO PRN ×2 (09:27→21:48)
[2017-01-20] MEDS: Acetaminophen 325 MG Tab PO PRN ×2 (12:07→19:15)
[2017-01-20] MEDS: Morphine 15 MG Tab PO PRN ×2 (13:35→21:48)
--- NOTE | 2017-01-20 14:26 | CR ---
Chest 1V Frontal INDICATION: SOB FINDINGS: Comparison 12/22/2016. Port-A-Cath with tip in the mid SVC. Heart size accentuated by janell ble AP technique. No focal consolidation.
--- NOTE | 2017-01-20 16:15 | PCM.PN ---
- General Info Date of Service: 01/20/17 Functional Status: Reports: Tolerating Diet, Urinating - Review of Systems General: Reports: Weakness. Denies: Fever, Chills Pulmonary: Reports: Shortness of Breath, Cough. Denies: Pleuritic Chest Pain, Sputum, Hemoptysis, Wheezing Cardiovascular: Reports: Dyspnea on Exertion. Denies: Chest Pain, Palpitations , Orthopnea, PND, Edema, Lightheadedness Gastrointestinal: Reports: No Symptoms Systems Review Comment:: Dipti has been stable since admission yesterday, she reports only modest improvement in her shortness of breath. Vital signs have been stable and oxygen saturations have been within desired range on supplemental oxygen. White blood cell count is normal and she has been afebrile since admission. - Patient Data Vitals - Most Recent: Last Vital Signs Temp 98.2 F 01/20/17 14:45 Pulse 86 01/20/17 14:45 Resp 20 01/20/17 14:45 BP 100/49 L 01/20/17 14:45 Pulse Ox 98 01/20/17 14:45 Weight - Most Recent: 301 lb 4.01 oz I&O - Last 24 Hours: Intake & Output 01/20/17 01/20/17 01/20/17 06:59 14:59 22:59 Intake Total 150 1130 Balance 150 1130 Lab Results Last 24 Hours: Laboratory Results - last 24 hr 01/20/17 01/20/17 Range/Units 05:11 05:11 WBC 11.0 (4.5-11.0) K/uL RBC 4.57 (3.30-5.50) M/uL Hgb 12.6 (12.0-15.0) g/dL Hct 40.9 (36.0-48.0) % MCV 90 (80-98) fL MCH 28 (27-31) pg MCHC 31 L (32-36) % Plt Count 317 (150-400) K/uL Sodium 140 (140-148) mmol/L Potassium 5.2 (3.6-5.2) mmol/L Chloride 99 L (100-108) mmol/L Carbon Dioxide 32 (21-32) mmol/L Anion Gap 14.2 H (5.0-14.0) mmol/L BUN 19 H (7-18) mg/dL Creatinine 1.0 (0.6-1.0) mg/dL Est Cr Clr Drug Dosing 53.91 mL/min Estimated GFR (MDRD) 56 L (>60) Glucose 314 H (74-106) mg/dL Calcium 9.1 (8.5-10.1) mg/dL Med Orders - Current: Current Medications Acetaminophen (Tylenol) 650 mg PO Q4H PRN PRN Reason: Pain (Mild 1-3)/fever Last Admin: 01/20/17 12:07 Dose: 650 mg Albuterol (Proventil Neb Soln) 2.5 mg NEB Q4H PRN PRN Reason: Shortness Of Breath/wheezing Albuterol/Ipratropium (Duoneb 3.0-0.5 Mg/3 Ml) 3 ml NEB QIDRT [facility] Last Admin: 01/20/17 14:36 Dose: 3 ml Aspirin (Halfprin) 81 mg PO DAILY [facility] Last Admin: 01/20/17 08:14 Dose: 81 mg Azathioprine (Imuran) 150 mg PO DAILY [facility] Last Admin: 01/20/17 08:14 Dose: 150 mg Benzonatate (Tessalon Perles) 100 mg PO TID PRN PRN Reason: Cough Bumetanide (Bumex) 3 mg PO DAILY@0800 [facility] Last Admin: 01/20/17 08:12 Dose: 3 mg Bumetanide (Bumex) 2 mg PO DAILY@1400 [facility] Last Admin: 01/20/17 13:31 Dose: 2 mg Enoxaparin Sodium (Lovenox) 40 mg SUBCUT DAILY [facility] Last Admin: 01/20/17 08:13 Dose: 40 mg Escitalopram Oxalate 10 mg/ (Escitalopram Oxalate 20 mg) 30 mg PO BEDTIME [facility] Folic Acid (Folic Acid) 1 mg PO DAILY [facility] Last Admin: 01/20/17 08:13 Dose: 1 mg Gabapentin (Neurontin) 300 mg PO BID [facility] Last Admin: 01/20/17 08:14 Dose: 300 mg Heparin Sodium (Porcine) (Heparin Lock Flush 100 Units/Ml) 500 units FLUSH ASDIRECTED PRN PRN Reason: Flush port Last Admin: 01/19/17 23:48 Dose: 500 units Hydromorphone HCl (Dilaudid) 0.5 - 1 mg IVPUSH Q2H PRN PRN Reason: Pain (severe 7-10) Last Admin: 01/20/17 09:27 Dose: 1 mg Doxycycline Hyclate 100 mg/ (Sodium Chloride) 100 mls @ 100 mls/hr IV Q12H [facility] Last Admin: 01/20/17 06:27 Dose: 100 mls/hr Ceftazidime 1 gm/ Sodium (Chloride) 50 mls @ 100 mls/hr IV Q8H [facility] Last Admin: 01/20/17 10:15 Dose: 100 mls/hr Insulin Aspart (Novolog) 12 unit SUBCUT TIDMEALS [facility] Last Admin: 01/20/17 12:02 Dose: 12 units Insulin Aspart (Novolog) 0 unit SUBCUT QIDACANDBED [facility] PRN Reason: Protocol Last Admin: 01/20/17 12:07 Dose: 15 units Insulin Detemir (Levemir) 40 unit SUBCUT BID [facility] Last Admin: 01/20/17 08:10 Dose: 40 units Isosorbide Mononitrate (Imdur) 30 mg PO DAILY [facility] Last Admin: 01/20/17 08:13 Dose: 30 mg Lactobacillus Rhamnosus (Culturelle) 1 cap PO BID [facility] Last Admin: 01/20/17 08:13 Dose: 1 cap Lisinopril (Prinivil) 20 mg PO DAILY [facility] Last Admin: 01/20/17 08:13 Dose: 20 mg Lorazepam (Ativan) 0.5 mg PO BID PRN PRN Reason: Anxiety Magnesium Oxide (Magnesium Oxide) 400 mg PO BID [facility] Last Admin: 01/20/17 08:15 Dose: 400 mg Metformin HCl (Glucophage) 850 mg PO BIDMEALS [facility] Last Admin: 01/20/17 08:14 Dose: 850 mg Methylprednisolone Sodium Succinate (Solu-Medrol) 40 mg IVPUSH Q12H [facility] Metoprolol Succinate (Toprol Xl) 25 mg PO BEDTIME [facility] Last Admin: 01/19/17 21:54 Dose: 25 mg Mometasone Furoate/Formoterol Fumar (Dulera 200-5 Mcg) 0 puff IH BIDRT [facility] Morphine Sulfate (Morphine) 15 - 30 mg PO Q4H PRN PRN Reason: pain/sob Last Admin: 01/20/17 13:35 Dose: 15 mg Ondansetron HCl (Zofran Odt) 4 mg PO Q6H PRN PRN Reason: Nausea able to take PO Last Admin: 01/20/17 09:27 Dose: 4 mg Oxybutynin Chloride (Oxybutynin) 5 mg PO BID [facility] Last Admin: 01/20/17 08:14 Dose: 5 mg Pantoprazole Sodium (Protonix) 40 mg PO DAILY@0730 [facility] Polyethylene Glycol (Miralax) 17 gm PO DAILY PRN PRN Reason: Constipation Potassium Chloride (Klor-Con M20) 20 meq PO BID [facility] Last Admin: 01/20/17 08:15 Dose: 20 meq Promethazine HCl (Phenergan) 25 mg PO Q8H PRN PRN Reason: Nausea Simvastatin (Zocor) 10 mg PO BEDTIME [facility] Last Admin: 01/19/17 21:51 Dose: 10 mg Spironolactone (Aldactone) 25 mg PO DAILY [facility] Last Admin: 01/20/17 08:14 Dose: 25 mg Trazodone HCl (Trazodone) 50 mg PO BEDTIME [facility] Last Admin: 01/19/17 21:59 Dose: 50 mg [facility] Admin: 01/20/17 08:15 Dose: 180 mg Discontinued Medications Bumetanide (Bumex) 5 mg IVPUSH ONETIME ONE Stop: 01/19/17 16:25 Last Admin: 01/19/17 16:49 Dose: 5 mg Escitalopram Oxalate (Lexapro) 30 mg PO BEDTIME [facility] Last Admin: 01/19/17 22:30 Dose: Not Given Escitalopram Oxalate (Lexapro) Confirm Administered Dose 30 mg .ROUTE .STK-MED ONE Stop: 01/19/17 22:28 Last Admin: 01/19/17 22:29 Dose: 30 mg Heparin Sodium (Porcine) (Heparin Lock Flush 100 Units/Ml) Confirm Administered Dose 500 units .ROUTE .STK-MED ONE Stop: 01/19/17 20:50 Last Admin: 01/19/17 21:00 Dose: Not Given Ceftazidime 1 gm/ Sodium (Chloride) 50 mls @ 100 mls/hr IV Q8H [facility] Last Admin: 01/20/17 01:50 Dose: 100 mls/hr Insulin Detemir (Levemir) 40 unit SUBCUT BID [facility] Last Admin: 01/19/17 21:10 Dose: 40 units Metformin HCl (Glucophage) 850 mg PO BID [facility] Last Admin: 01/19/17 21:54 Dose: 850 mg Methylprednisolone Sodium Succinate (Solu-Medrol) 125 mg IVPUSH ONETIME ONE Stop: 01/19/17 17:07 Last Admin: 01/19/17 17:28 Dose: 125 mg Methylprednisolone Sodium Succinate (Solu-Medrol) 62.5 mg IVPUSH Q8H [facility] Last Admin: 01/20/17 01:44 Dose: 62.5 mg Methylprednisolone Sodium Succinate (Solu-Medrol) 62.5 mg IVPUSH Q8H [facility] Last Admin: 01/20/17 10:15 Dose: 62.5 mg Mometasone Furoate/Formoterol Fumar (Dulera 200-5 Mcg) 0 puff IH BIDRT [facility] Last Admin: 01/20/17 07:11 Dose: 2 puff Pantoprazole Sodium (Protonix) 40 mg PO BIDAC [facility] Last Admin: 01/20/17 09:35 Dose: 40 mg Sucralfate (Carafate) 1 gm PO QIDACANDBED [facility] Last Admin: 01/20/17 11:51 Dose: Not Given - Exam Quality Assessment: Supplemental Oxygen, DVT Prophylaxis General: Alert, Oriented, Cooperative, Mild Distress Lungs: Clear to Auscultation, Decreased Breath Sounds. No: Crackles, Rales, Rhonchi, Wheezing Cardiovascular: Regular Rate, Regular Rhythm, No Murmurs GI/Abdominal Exam: Normal Bowel Sounds, Soft, Non-Tender, No Distention Extremities: Normal Inspection, No Pedal Edema Skin: Warm, Dry, Intact - Problem List Review Problem List Initiated/Reviewed/Updated: Yes - My Orders Last 24 Hours: My Active Orders 01/20/17 22:00 methylPREDNISolone Sod Succ [Solu-MEDROL] 40 mg IVPUSH Q12H 01/21/17 07:30 Pantoprazole [ProTONIX] 40 mg PO DAILY@0730 - Plan Plan:: Assessment and plan - Acute bronchitis with acute COPD exacerbation - increasing cough, shortness of breath and low-grade fevers. History of similar episodes. She is on chronic prednisone therapy as well as additional immunosuppression for her rheumatoid arthritis. Borderline oxygenation on 3 L which is her baseline at home. Modest improvement in symptoms since admission with current management -IV steroids -Antibiotic coverage with doxycycline and ceftazidime -Scheduled and as needed nebulizers -sputum culture if able -Pain control Heart failure with preserved ejection fraction - 8 pound weight gain over the past 2 days, likely related to acute lung disease rather than exacerbation of heart failure alone. -Continue outpatient medical management Insulin-dependent diabetes mellitus - sugars often arise with after she has been started on steroids. Baseline is suboptimal control of her diabetes. -Diabetic diet -increase Levemir dosing to 40 units twice daily -12 units of NovoLog with meals -High dose sliding scale Chronic rheumatoid arthritis - no worsening of her joint symptoms from baseline. -Continue azathioprine Maintenance issues - - DVT prophylaxis - enoxaparin - GI prophylaxis - PPI - Nutrition - diabetic diet - Dougherty catheter - not indicated CODE STATUS - full code Admission justification - This patient will be admitted for inpatient services and is medically appropriate meeting medical necessity for inpatient admission as outlined in my documentation. I reasonably expect the patient will require inpatient services that span a period time over 2 midnights. I reasonably expect this patient to be discharged or transferred within 96 hours [facility]. Disposition - anticipate discharge to home after the hospital stay Primary care physician - Dr. Gonsalez
[2017-01-20] MEDS: ESCITALOPRAM PO SCH ×2 (20:24)
[2017-01-20] MEDS: traZODone 50 MG Tab PO SCH (20:30)
[2017-01-20] MEDS: Simvastatin 20 MG Tab PO SCH (20:31)
[2017-01-20] MEDS: Metoprolol Succinate 25 MG Tab.ER PO SCH (20:35)
[2017-01-20] MEDS ORDERED: Insulin Aspart 100 Units/ML 3 ML Pen SUBCUT ONE (21:20)
[2017-01-20] MEDS: methylPREDNISolone Sodium Succinate 40 MG/1 ML SDV IVPUSH SCH (21:34)
[2017-01-20] MEDS: LORazepam 0.5 MG Tab PO PRN (22:04)
[2017-01-21] MEDS: cefTAZidime 1 GM in Sodium Chloride 0.9% 50 ML IV SCH ×3 (01:14→17:53)
[2017-01-21] MEDS: Doxycycline 100 MG in Sodium Chloride 0.9% 100 ML IV SCH ×2 (05:24→19:43)
[2017-01-21] MEDS: Formoterol/Mometasone 200-5 MCG 8.8 GM Inhaler IH SCH ×2 (07:21→21:38)
[2017-01-21] MEDS: Albuterol/Ipratropium 3.0-0.5 MG/3 ML Neb Soln NEB SCH ×4 (07:22→21:29)
[2017-01-21] MEDS: Insulin Aspart 100 Units/ML 3 ML Pen SUBCUT SCH ×7 (07:54→21:37)
[2017-01-21] MEDS: Bumetanide 1 MG Tab PO SCH ×2 (07:55→14:19)
[2017-01-21] MEDS: Pantoprazole 40 MG Tab.CR PO SCH (07:56)
[2017-01-21] MEDS: Lactobacillus Rhamnosus GG (Probiotic) Cap PO SCH ×2 (08:56→21:33)
[2017-01-21] MEDS: Spironolactone 25 MG Tab PO SCH (08:56)
[2017-01-21] MEDS: Folic Acid 1 MG Tab PO SCH (08:57)
[2017-01-21] MEDS: Aspirin 81 MG Tab.EC PO SCH (08:57)
[2017-01-21] MEDS: Isosorbide Mononitrate 30 MG Tab.ER PO SCH (08:57)
[2017-01-21] MEDS: Insulin Detemir 100 Units/ML 3 ML Pen SUBCUT SCH ×2 (09:00→21:35)
[2017-01-21] MEDS: Potassium Chloride 20 MEQ Tab.ER PO SCH ×2 (09:00→21:33)
[2017-01-21] MEDS: Enoxaparin 40 MG/0.4 ML Syringe SUBCUT SCH (09:03)
[2017-01-21] MEDS: Magnesium Oxide 400 MG Tab PO SCH ×2 (09:04→21:33)
[2017-01-21] MEDS: Gabapentin 300 MG Cap PO SCH ×2 (09:04→21:34)
[2017-01-21] MEDS: Lisinopril 20 MG Tab PO SCH (09:04)
[2017-01-21] MEDS: Oxybutynin 5 MG Tab PO SCH ×2 (09:04→21:33)
[2017-01-21] MEDS: methylPREDNISolone Sodium Succinate 40 MG/1 ML SDV IVPUSH SCH (10:16)
[2017-01-21] MEDS: oxyCODONE 5 MG Tab PO PRN (10:56)
[2017-01-21] MEDS: Acetaminophen 325 MG Tab PO PRN (15:23)
--- NOTE | 2017-01-21 17:51 | PCM.PN ---
- General Info Date of Service: 01/21/17 Functional Status: Reports: Tolerating Diet, Urinating - Review of Systems General: Reports: Weakness. Denies: Fever, Chills Pulmonary: Reports: Shortness of Breath, Cough. Denies: Sputum, Hemoptysis, Wheezing Cardiovascular: Reports: Dyspnea on Exertion. Denies: Chest Pain, Palpitations , Orthopnea, PND, Edema Gastrointestinal: Reports: No Symptoms Systems Review Comment:: Ms. Daniel has experienced modest improvement in her shortness of breath and cough and see yesterday. Vital signs have been stable and she has remained afebrile. - Patient Data Vitals - Most Recent: Last Vital Signs Temp 98.6 F 01/21/17 14:30 Pulse 102 H 01/21/17 14:42 Resp 17 01/21/17 14:30 BP 113/74 01/21/17 14:30 Pulse Ox 93 L 01/21/17 14:42 Weight - Most Recent: 301 lb 4.01 oz I&O - Last 24 Hours: Intake & Output 01/21/17 01/21/17 01/21/17 06:59 14:59 22:59 Intake Total 650 Output Total 375 2950 Balance -375 -2300 Med Orders - Current: Current Medications Acetaminophen (Tylenol) 650 mg PO Q4H PRN PRN Reason: Pain (Mild 1-3)/fever Last Admin: 01/21/17 15:23 Dose: 650 mg Albuterol (Proventil Neb Soln) 2.5 mg NEB Q4H PRN PRN Reason: Shortness Of Breath/wheezing Albuterol/Ipratropium (Duoneb 3.0-0.5 Mg/3 Ml) 3 ml NEB QIDRT [facility] Last Admin: 01/21/17 14:42 Dose: 3 ml Aspirin (Halfprin) 81 mg PO DAILY [facility] Last Admin: 01/21/17 08:57 Dose: 81 mg Azathioprine (Imuran) 150 mg PO DAILY [facility] Last Admin: 01/21/17 08:59 Dose: 150 mg Benzonatate (Tessalon Perles) 100 mg PO TID PRN PRN Reason: Cough Bumetanide (Bumex) 3 mg PO DAILY@0800 [facility] Last Admin: 01/21/17 07:55 Dose: 3 mg Bumetanide (Bumex) 2 mg PO DAILY@1400 [facility] Last Admin: 01/21/17 14:19 Dose: 2 mg Enoxaparin Sodium (Lovenox) 40 mg SUBCUT DAILY [facility] Last Admin: 01/21/17 09:03 Dose: 40 mg Escitalopram Oxalate 10 mg/ (Escitalopram Oxalate 20 mg) 30 mg PO BEDTIME [facility] Last Admin: 01/20/17 20:24 Dose: 30 mg Folic Acid (Folic Acid) 1 mg PO DAILY [facility] Last Admin: 01/21/17 08:57 Dose: 1 mg Gabapentin (Neurontin) 300 mg PO BID [facility] Last Admin: 01/21/17 09:04 Dose: 300 mg Heparin Sodium (Porcine) (Heparin Lock Flush 100 Units/Ml) 500 units FLUSH ASDIRECTED PRN PRN Reason: Flush port Last Admin: 01/19/17 23:48 Dose: 500 units Doxycycline Hyclate 100 mg/ (Sodium Chloride) 100 mls @ 100 mls/hr IV Q12H [facility] Last Admin: 01/21/17 05:24 Dose: 100 mls/hr Ceftazidime 1 gm/ Sodium (Chloride) 50 mls @ 100 mls/hr IV Q8H [facility] Last Admin: 01/21/17 10:15 Dose: 100 mls/hr Insulin Aspart (Novolog) 12 unit SUBCUT TIDMEALS [facility] Last Admin: 01/21/17 17:42 Dose: 12 units Insulin Aspart (Novolog) 0 unit SUBCUT QIDACANDBED [facility] PRN Reason: Protocol Last Admin: 01/21/17 17:43 Dose: 15 units Insulin Detemir (Levemir) 40 unit SUBCUT BID [facility] Last Admin: 01/21/17 09:00 Dose: 40 units Isosorbide Mononitrate (Imdur) 30 mg PO DAILY [facility] Last Admin: 01/21/17 08:57 Dose: 30 mg Lactobacillus Rhamnosus (Culturelle) 1 cap PO BID [facility] Last Admin: 01/21/17 08:56 Dose: 1 cap Lisinopril (Prinivil) 20 mg PO DAILY [facility] Last Admin: 01/21/17 09:04 Dose: 20 mg Lorazepam (Ativan) 0.5 mg PO BID PRN PRN Reason: Anxiety Last Admin: 01/20/17 22:04 Dose: 0.5 mg Magnesium Oxide (Magnesium Oxide) 400 mg PO BID [facility] Last Admin: 01/21/17 09:04 Dose: 400 mg Metformin HCl (Glucophage) 850 mg PO BIDMEALS [facility] Last Admin: 01/21/17 17:45 Dose: 850 mg Metoprolol Succinate (Toprol Xl) 25 mg PO BEDTIME [facility] Last Admin: 01/20/17 20:35 Dose: Not Given Mometasone Furoate/Formoterol Fumar (Dulera 200-5 Mcg) 0 puff IH BIDRT [facility] Last Admin: 01/21/17 07:21 Dose: 2 puff Ondansetron HCl (Zofran Odt) 4 mg PO Q6H PRN PRN Reason: Nausea able to take PO Last Admin: 01/20/17 21:48 Dose: 4 mg Oxybutynin Chloride (Oxybutynin) 5 mg PO BID [facility] Last Admin: 01/21/17 09:04 Dose: 5 mg Oxycodone HCl (Oxycodone) 5 mg PO Q4H PRN PRN Reason: Pain Last Admin: 01/21/17 10:56 Dose: 5 mg Pantoprazole Sodium (Protonix) 40 mg PO DAILY@0730 [facility] Last Admin: 01/21/17 07:56 Dose: 40 mg Polyethylene Glycol (Miralax) 17 gm PO DAILY PRN PRN Reason: Constipation Potassium Chloride (Klor-Con M20) 20 meq PO BID [facility] Last Admin: 01/21/17 09:00 Dose: 20 meq Prednisone (Prednisone) 20 mg PO WITHBREAKFAST [facility] Promethazine HCl (Phenergan) 25 mg PO Q8H PRN PRN Reason: Nausea Simvastatin (Zocor) 10 mg PO BEDTIME [facility] Last Admin: 01/20/17 20:31 Dose: 10 mg Spironolactone (Aldactone) 25 mg PO DAILY [facility] Last Admin: 01/21/17 08:56 Dose: 25 mg Trazodone HCl (Trazodone) 50 mg PO BEDTIME [facility] Last Admin: 01/20/17 20:30 Dose: 50 mg Discontinued Medications Bumetanide (Bumex) 5 mg IVPUSH ONETIME ONE Stop: 01/19/17 16:25 Last Admin: 01/19/17 16:49 Dose: 5 mg Escitalopram Oxalate (Lexapro) 30 mg PO BEDTIME [facility] Last Admin: 01/19/17 22:30 Dose: Not Given Escitalopram Oxalate (Lexapro) Confirm Administered Dose 30 mg .ROUTE .STK-MED ONE Stop: 01/19/17 22:28 Last Admin: 01/19/17 22:29 Dose: 30 mg Heparin Sodium (Porcine) (Heparin Lock Flush 100 Units/Ml) Confirm Administered Dose 500 units .ROUTE .STK-MED ONE Stop: 01/19/17 20:50 Last Admin: 01/19/17 21:00 Dose: Not Given Hydromorphone HCl (Dilaudid) 0.5 - 1 mg IVPUSH Q2H PRN PRN Reason: Pain (severe 7-10) Last Admin: 01/20/17 16:46 Dose: 1 mg Ceftazidime 1 gm/ Sodium (Chloride) 50 mls @ 100 mls/hr IV Q8H [facility] Last Admin: 01/20/17 01:50 Dose: 100 mls/hr Insulin Aspart (Novolog) 14 unit SUBCUT ONETIME ONE Stop: 01/20/17 21:21 Last Admin: 01/20/17 21:50 Dose: 14 unit Insulin Detemir (Levemir) 40 unit SUBCUT BID [facility] Last Admin: 01/19/17 21:10 Dose: 40 units Metformin HCl (Glucophage) 850 mg PO BID [facility] Last Admin: 01/19/17 21:54 Dose: 850 mg Methylprednisolone Sodium Succinate (Solu-Medrol) 125 mg IVPUSH ONETIME ONE Stop: 01/19/17 17:07 Last Admin: 01/19/17 17:28 Dose: 125 mg Methylprednisolone Sodium Succinate (Solu-Medrol) 62.5 mg IVPUSH Q8H [facility] Last Admin: 01/20/17 01:44 Dose: 62.5 mg Methylprednisolone Sodium Succinate (Solu-Medrol) 62.5 mg IVPUSH Q8H [facility] Last Admin: 01/20/17 10:15 Dose: 62.5 mg Methylprednisolone Sodium Succinate (Solu-Medrol) 40 mg IVPUSH Q12H [facility] Last Admin: 01/21/17 10:16 Dose: 40 mg Mometasone Furoate/Formoterol Fumar (Dulera 200-5 Mcg) 0 puff IH BIDRT [facility] Last Admin: 01/20/17 07:11 Dose: 2 puff Morphine Sulfate (Morphine) 15 - 30 mg PO Q4H PRN PRN Reason: pain/sob Last Admin: 01/20/17 21:48 Dose: 15 mg Pantoprazole Sodium (Protonix) 40 mg PO BIDAC [facility] Last Admin: 01/20/17 09:35 Dose: 40 mg Sucralfate (Carafate) 1 gm PO QIDACANDBED [facility] Last Admin: 01/20/17 11:51 Dose: Not Given Verapamil HCl (Calan Sr) 180 mg PO BIDAC [facility] Last Admin: 01/20/17 16:58 Dose: Not Given - Exam Quality Assessment: Supplemental Oxygen, DVT Prophylaxis General: Alert, Oriented, Cooperative, Mild Distress Lungs: Decreased Breath Sounds. No: Crackles, Rales, Rhonchi, Wheezing Cardiovascular: Regular Rate, Regular Rhythm, No Murmurs GI/Abdominal Exam: Normal Bowel Sounds, Soft, Non-Tender, No Distention Extremities: Normal Inspection, No Pedal Edema Skin: Warm, Dry, Intact - Problem List Review Problem List Initiated/Reviewed/Updated: Yes - My Orders Last 24 Hours: My Active Orders 01/20/17 16:49 oxyCODONE 5 mg PO Q4H PRN 01/21/17 07:30 Pantoprazole [ProTONIX] 40 mg PO DAILY@0730 01/22/17 08:00 predniSONE 20 mg PO WITHBREAKFAST - Plan Plan:: Assessment and plan - Acute bronchitis with acute COPD exacerbation - increasing cough, shortness of breath and low-grade fevers. History of similar episodes. She is on chronic prednisone therapy as well as additional immunosuppression for her rheumatoid arthritis. Borderline oxygenation on 3 L which is her baseline at home. Further improvement in shortness of breath and cough over the past 24 hours -Prednisone 20 mg by mouth daily -Antibiotic coverage with doxycycline and ceftazidime -Scheduled and as needed nebulizers -Pain control Heart failure with preserved ejection fraction - no evidence of significant peripheral or pulmonary edema at the present time -Continue outpatient medical management Insulin-dependent diabetes mellitus - sugars often arise with after she has been started on steroids. Baseline is suboptimal control of her diabetes. -Diabetic diet -increase Levemir dosing to 40 units twice daily -12 units of NovoLog with meals -High dose sliding scale Chronic rheumatoid arthritis - no worsening of her joint symptoms from baseline. -Continue azathioprine Maintenance issues - - DVT prophylaxis - enoxaparin - GI prophylaxis - PPI - Nutrition - diabetic diet - Dougherty catheter - not indicated CODE STATUS - full code Admission justification - This patient will be admitted for inpatient services and is medically appropriate meeting medical necessity for inpatient admission as outlined in my documentation. I reasonably expect the patient will require inpatient services that span a period time over 2 midnights. I reasonably expect this patient to be discharged or transferred within 96 hours after admission to the [facility]. Disposition - anticipate discharge to home after the hospital stay Primary care physician - Dr. Gonsalez
[2017-01-21] MEDS: LORazepam 0.5 MG Tab PO PRN (19:43)
[2017-01-21] MEDS: ESCITALOPRAM PO SCH ×2 (21:33)
[2017-01-21] MEDS: Simvastatin 20 MG Tab PO SCH (21:33)
[2017-01-21] MEDS: traZODone 50 MG Tab PO SCH (21:34)
[2017-01-21] MEDS: Metoprolol Succinate 25 MG Tab.ER PO SCH (21:34)
[2017-01-22] MEDS: cefTAZidime 1 GM in Sodium Chloride 0.9% 50 ML IV SCH ×3 (02:53→17:39)
[2017-01-22] MEDS: Doxycycline 100 MG in Sodium Chloride 0.9% 100 ML IV SCH ×2 (06:08→18:25)
[2017-01-22] MEDS: Formoterol/Mometasone 200-5 MCG 8.8 GM Inhaler IH SCH ×2 (07:15→21:56)
[2017-01-22] MEDS: Albuterol/Ipratropium 3.0-0.5 MG/3 ML Neb Soln NEB SCH ×4 (07:15→21:52)
[2017-01-22] MEDS: Pantoprazole 40 MG Tab.CR PO SCH (07:32)
[2017-01-22] MEDS: Insulin Aspart 100 Units/ML 3 ML Pen SUBCUT SCH ×7 (08:15→21:54)
[2017-01-22] MEDS: predniSONE 20 MG Tab PO SCH (08:18)
[2017-01-22] MEDS: Bumetanide 1 MG Tab PO SCH ×2 (08:18→14:20)
[2017-01-22] MEDS: Lactobacillus Rhamnosus GG (Probiotic) Cap PO SCH ×2 (09:07→21:56)
[2017-01-22] MEDS: Isosorbide Mononitrate 30 MG Tab.ER PO SCH (09:07)
[2017-01-22] MEDS: Spironolactone 25 MG Tab PO SCH (09:07)
[2017-01-22] MEDS: Folic Acid 1 MG Tab PO SCH (09:07)
[2017-01-22] MEDS: Aspirin 81 MG Tab.EC PO SCH (09:07)
[2017-01-22] MEDS: Potassium Chloride 20 MEQ Tab.ER PO SCH ×2 (09:12→21:56)
[2017-01-22] MEDS: Insulin Detemir 100 Units/ML 3 ML Pen SUBCUT SCH ×2 (09:12→21:55)
[2017-01-22] MEDS: Enoxaparin 40 MG/0.4 ML Syringe SUBCUT SCH (09:13)
[2017-01-22] MEDS: Magnesium Oxide 400 MG Tab PO SCH ×2 (09:13→21:56)
[2017-01-22] MEDS: Lisinopril 20 MG Tab PO SCH (09:13)
[2017-01-22] MEDS: Oxybutynin 5 MG Tab PO SCH ×2 (09:13→21:59)
[2017-01-22] MEDS: Gabapentin 300 MG Cap PO SCH ×2 (09:13→21:57)
[2017-01-22] MEDS: oxyCODONE 5 MG Tab PO PRN ×2 (14:20→22:07)
--- NOTE | 2017-01-22 19:23 | PCM.PN ---
- General Info Date of Service: 01/22/17 Functional Status: Reports: Pain Controlled, Tolerating Diet - Review of Systems General: Reports: Weakness. Denies: Fever, Chills Pulmonary: Reports: Shortness of Breath, Cough. Denies: Pleuritic Chest Pain, Sputum, Hemoptysis, Wheezing Cardiovascular: Reports: Dyspnea on Exertion. Denies: Chest Pain, Palpitations , Orthopnea, PND, Edema Systems Review Comment:: Dipti has experienced further improvement in symptoms since yesterday with less shortness of breath and cough, and her energy level seems to be improved. Vital signs have been stable and she has remained afebrile. - Patient Data Vitals - Most Recent: Last Vital Signs Temp 98.1 F 01/22/17 17:22 Pulse 92 01/22/17 17:22 Resp 16 01/22/17 17:22 BP 114/72 01/22/17 17:22 Pulse Ox 91 L 01/22/17 17:22 Weight - Most Recent: 301 lb 4.01 oz I&O - Last 24 Hours: Intake & Output 01/22/17 01/22/17 01/22/17 06:59 14:59 22:59 Intake Total 150 1550 150 Output Total 850 2700 Balance -700 -1150 150 Med Orders - Current: Current Medications Acetaminophen (Tylenol) 650 mg PO Q4H PRN PRN Reason: Pain (Mild 1-3)/fever Last Admin: 01/21/17 15:23 Dose: 650 mg Albuterol (Proventil Neb Soln) 2.5 mg NEB Q4H PRN PRN Reason: Shortness Of Breath/wheezing Albuterol/Ipratropium (Duoneb 3.0-0.5 Mg/3 Ml) 3 ml NEB QIDRT [facility] Last Admin: 01/22/17 14:42 Dose: 3 ml Aspirin (Halfprin) 81 mg PO DAILY [facility] Last Admin: 01/22/17 09:07 Dose: 81 mg Azathioprine (Imuran) 150 mg PO DAILY [facility] Last Admin: 01/22/17 09:10 Dose: 150 mg Benzonatate (Tessalon Perles) 100 mg PO TID PRN PRN Reason: Cough Bumetanide (Bumex) 3 mg PO DAILY@0800 [facility] Last Admin: 01/22/17 08:18 Dose: 3 mg Bumetanide (Bumex) 2 mg PO DAILY@1400 [facility] Last Admin: 01/22/17 14:20 Dose: 2 mg Doxycycline Hyclate (Vibramycin) 100 mg PO Q12H [facility] Enoxaparin Sodium (Lovenox) 40 mg SUBCUT DAILY [facility] Last Admin: 01/22/17 09:13 Dose: 40 mg Escitalopram Oxalate 10 mg/ (Escitalopram Oxalate 20 mg) 30 mg PO BEDTIME [facility] Last Admin: 01/21/17 21:33 Dose: 30 mg Folic Acid (Folic Acid) 1 mg PO DAILY [facility] Last Admin: 01/22/17 09:07 Dose: 1 mg Gabapentin (Neurontin) 300 mg PO BID [facility] Last Admin: 01/22/17 09:13 Dose: 300 mg Heparin Sodium (Porcine) (Heparin Lock Flush 100 Units/Ml) 500 units FLUSH ASDIRECTED PRN PRN Reason: Flush port Last Admin: 01/19/17 23:48 Dose: 500 units Insulin Aspart (Novolog) 12 unit SUBCUT TIDMEALS [facility] Last Admin: 01/22/17 17:30 Dose: 12 units Insulin Aspart (Novolog) 0 unit SUBCUT QIDACANDBED [facility] PRN Reason: Protocol Last Admin: 01/22/17 17:30 Dose: 9 units Insulin Detemir (Levemir) 40 unit SUBCUT BID [facility] Last Admin: 01/22/17 09:12 Dose: 40 units Isosorbide Mononitrate (Imdur) 30 mg PO DAILY [facility] Last Admin: 01/22/17 09:07 Dose: 30 mg Lactobacillus Rhamnosus (Culturelle) 1 cap PO BID [facility] Last Admin: 01/22/17 09:07 Dose: 1 cap Lisinopril (Prinivil) 20 mg PO DAILY [facility] Last Admin: 01/22/17 09:13 Dose: 20 mg Lorazepam (Ativan) 0.5 mg PO BID PRN PRN Reason: Anxiety Last Admin: 01/21/17 19:43 Dose: 0.5 mg Magnesium Oxide (Magnesium Oxide) 400 mg PO BID [facility] Last Admin: 01/22/17 09:13 Dose: 400 mg Metformin HCl (Glucophage) 850 mg PO BIDMEALS [facility] Last Admin: 01/22/17 17:28 Dose: 850 mg Metoprolol Succinate (Toprol Xl) 25 mg PO BEDTIME [facility] Last Admin: 01/21/17 21:34 Dose: 25 mg Mometasone Furoate/Formoterol Fumar (Dulera 200-5 Mcg) 0 puff IH BIDRT [facility] Last Admin: 01/22/17 07:15 Dose: 2 puff Ondansetron HCl (Zofran Odt) 4 mg PO Q6H PRN PRN Reason: Nausea able to take PO Last Admin: 01/20/17 21:48 Dose: 4 mg Oxybutynin Chloride (Oxybutynin) 5 mg PO BID [facility] Last Admin: 01/22/17 09:13 Dose: 5 mg Oxycodone HCl (Oxycodone) 5 mg PO Q4H PRN PRN Reason: Pain Last Admin: 01/22/17 14:20 Dose: 5 mg Pantoprazole Sodium (Protonix) 40 mg PO DAILY@0730 [facility] Last Admin: 01/22/17 07:32 Dose: 40 mg Polyethylene Glycol (Miralax) 17 gm PO DAILY PRN PRN Reason: Constipation Potassium Chloride (Klor-Con M20) 20 meq PO BID [facility] Last Admin: 01/22/17 09:12 Dose: 20 meq Prednisone (Prednisone) 20 mg PO WITHBREAKFAST [facility] Last Admin: 01/22/17 08:18 Dose: 20 mg Promethazine HCl (Phenergan) 25 mg PO Q8H PRN PRN Reason: Nausea Simvastatin (Zocor) 10 mg PO BEDTIME [facility] Last Admin: 01/21/17 21:33 Dose: 10 mg Spironolactone (Aldactone) 25 mg PO DAILY [facility] Last Admin: 01/22/17 09:07 Dose: 25 mg Trazodone HCl (Trazodone) 50 mg PO BEDTIME [facility] Last Admin: 01/21/17 21:34 Dose: 50 mg Discontinued Medications Bumetanide (Bumex) 5 mg IVPUSH ONETIME ONE Stop: 01/19/17 16:25 Last Admin: 01/19/17 16:49 Dose: 5 mg Escitalopram Oxalate (Lexapro) 30 mg PO BEDTIME [facility] Last Admin: 01/19/17 22:30 Dose: Not Given Escitalopram Oxalate (Lexapro) Confirm Administered Dose 30 mg .ROUTE .STK-MED ONE Stop: 01/19/17 22:28 Last Admin: 01/19/17 22:29 Dose: 30 mg Heparin Sodium (Porcine) (Heparin Lock Flush 100 Units/Ml) Confirm Administered Dose 500 units .ROUTE .STK-MED ONE Stop: 01/19/17 20:50 Last Admin: 01/19/17 21:00 Dose: Not Given Hydromorphone HCl (Dilaudid) 0.5 - 1 mg IVPUSH Q2H PRN PRN Reason: Pain (severe 7-10) Last Admin: 01/20/17 16:46 Dose: 1 mg Ceftazidime 1 gm/ Sodium (Chloride) 50 mls @ 100 mls/hr IV Q8H [facility] Last Admin: 01/20/17 01:50 Dose: 100 mls/hr Doxycycline Hyclate 100 mg/ (Sodium Chloride) 100 mls @ 100 mls/hr IV Q12H [facility] Last Admin: 01/22/17 18:25 Dose: 100 mls/hr Ceftazidime 1 gm/ Sodium (Chloride) 50 mls @ 100 mls/hr IV Q8H [facility] Last Admin: 01/22/17 17:39 Dose: 100 mls/hr Insulin Aspart (Novolog) 14 unit SUBCUT ONETIME ONE Stop: 01/20/17 21:21 Last Admin: 01/20/17 21:50 Dose: 14 unit Insulin Detemir (Levemir) 40 unit SUBCUT BID [facility] Last Admin: 01/19/17 21:10 Dose: 40 units Metformin HCl (Glucophage) 850 mg PO BID [facility] Last Admin: 01/19/17 21:54 Dose: 850 mg Methylprednisolone Sodium Succinate (Solu-Medrol) 125 mg IVPUSH ONETIME ONE Stop: 01/19/17 17:07 Last Admin: 01/19/17 17:28 Dose: 125 mg Methylprednisolone Sodium Succinate (Solu-Medrol) 62.5 mg IVPUSH Q8H [facility] Last Admin: 01/20/17 01:44 Dose: 62.5 mg Methylprednisolone Sodium Succinate (Solu-Medrol) 62.5 mg IVPUSH Q8H [facility] Last Admin: 01/20/17 10:15 Dose: 62.5 mg Methylprednisolone Sodium Succinate (Solu-Medrol) 40 mg IVPUSH Q12H [facility] Last Admin: 01/21/17 10:16 Dose: 40 mg Mometasone Furoate/Formoterol Fumar (Dulera 200-5 Mcg) 0 puff IH BIDRT [facility] Last Admin: 01/20/17 07:11 Dose: 2 puff Morphine Sulfate (Morphine) 15 - 30 mg PO Q4H PRN PRN Reason: pain/sob Last Admin: 01/20/17 21:48 Dose: 15 mg Pantoprazole Sodium (Protonix) 40 mg PO BIDAC [facility] Last Admin: 01/20/17 09:35 Dose: 40 mg Sucralfate (Carafate) 1 gm PO QIDACANDBED [facility] Last Admin: 01/20/17 11:51 Dose: Not Given Verapamil HCl (Calan Sr) 180 mg PO BIDAC [facility] Last Admin: 01/20/17 16:58 Dose: Not Given - Exam Quality Assessment: Supplemental Oxygen, DVT Prophylaxis General: Alert, Oriented, Cooperative, No Acute Distress Lungs: Clear to Auscultation, Decreased Breath Sounds. No: Rales, Rhonchi, Wheezing Cardiovascular: Regular Rate, Regular Rhythm, No Murmurs GI/Abdominal Exam: Normal Bowel Sounds, Soft, Non-Tender, No Distention Extremities: Normal Inspection, No Pedal Edema Skin: Warm, Dry, Intact - Problem List Review Problem List Initiated/Reviewed/Updated: Yes - My Orders Last 24 Hours: My Active Orders 01/22/17 08:00 predniSONE 20 mg PO WITHBREAKFAST 01/22/17 19:30 Doxycycline [Vibramycin] 100 mg PO Q12H - Plan Plan:: Assessment and plan - Acute bronchitis with acute COPD exacerbation - increasing cough, shortness of breath and low-grade fevers. History of similar episodes. She is on chronic prednisone therapy as well as additional immunosuppression for her rheumatoid arthritis. Borderline oxygenation on 3 L which is her baseline at home. Further improvement in shortness of breath and cough over the past 24 hours -Prednisone 20 mg by mouth daily -Doxycycline 100 mg by mouth twice a day -Scheduled and as needed nebulizers -Pain control Heart failure with preserved ejection fraction - no evidence of significant peripheral or pulmonary edema at the present time -Continue outpatient medical management Insulin-dependent diabetes mellitus - sugars often arise with after she has been started on steroids. Baseline is suboptimal control of her diabetes. -Diabetic diet -increase Levemir dosing to 40 units twice daily -12 units of NovoLog with meals -High dose sliding scale Chronic rheumatoid arthritis - no worsening of her joint symptoms from baseline. -Continue azathioprine Maintenance issues - - DVT prophylaxis - enoxaparin - GI prophylaxis - PPI - Nutrition - diabetic diet - Dougherty catheter - not indicated CODE STATUS - full code Admission justification - This patient will be admitted for inpatient services and is medically appropriate meeting medical necessity for inpatient admission as outlined in my documentation. I reasonably expect the patient will require inpatient services that span a period time over 2 midnights. I reasonably expect this patient to be discharged or transferred within 96 hours [facility]. Disposition - anticipate discharge to home after the hospital stay Primary care physician - Dr. Gonsalez
[2017-01-22] MEDS ORDERED: ALPRAZolam 0.25 MG Tab PO PRN (20:10)
[2017-01-22] MEDS: Doxycycline 100 MG Cap PO SCH (20:29)
[2017-01-22] MEDS: ESCITALOPRAM PO SCH ×2 (21:56)
[2017-01-22] MEDS: traZODone 50 MG Tab PO SCH (21:57)
[2017-01-22] MEDS: Metoprolol Succinate 25 MG Tab.ER PO SCH (21:58)
[2017-01-22] MEDS: Simvastatin 20 MG Tab PO SCH (21:58)
[2017-01-23] MEDS: Formoterol/Mometasone 200-5 MCG 8.8 GM Inhaler IH SCH ×2 (07:00→11:28)
[2017-01-23] MEDS: Albuterol/Ipratropium 3.0-0.5 MG/3 ML Neb Soln NEB SCH ×4 (07:00→14:34)
[2017-01-23] MEDS: Insulin Aspart 100 Units/ML 3 ML Pen SUBCUT SCH ×4 (07:00→11:35)
[2017-01-23] MEDS: Doxycycline 100 MG Cap PO SCH (07:30)
[2017-01-23] MEDS: Pantoprazole 40 MG Tab.CR PO SCH (07:30)
[2017-01-23] MEDS: predniSONE 20 MG Tab PO SCH (08:00)
[2017-01-23] MEDS: Bumetanide 1 MG Tab PO SCH (08:00)
[2017-01-23] MEDS: Folic Acid 1 MG Tab PO SCH (09:32)
[2017-01-23] MEDS: Spironolactone 25 MG Tab PO SCH (09:32)
[2017-01-23] MEDS: Lactobacillus Rhamnosus GG (Probiotic) Cap PO SCH (09:32)
[2017-01-23] MEDS: Isosorbide Mononitrate 30 MG Tab.ER PO SCH (09:32)
[2017-01-23] MEDS: Aspirin 81 MG Tab.EC PO SCH (09:32)
[2017-01-23] MEDS: Insulin Detemir 100 Units/ML 3 ML Pen SUBCUT SCH (09:33)
[2017-01-23] MEDS: Potassium Chloride 20 MEQ Tab.ER PO SCH (09:33)
[2017-01-23] MEDS: Enoxaparin 40 MG/0.4 ML Syringe SUBCUT SCH (09:39)
[2017-01-23] MEDS: Oxybutynin 5 MG Tab PO SCH (09:39)
[2017-01-23] MEDS: Magnesium Oxide 400 MG Tab PO SCH (09:39)
[2017-01-23] MEDS: Lisinopril 20 MG Tab PO SCH (09:39)
[2017-01-23] MEDS: Gabapentin 300 MG Cap PO SCH (09:39)
[2017-01-23 11:56] VITALS: BP 125/75
[2017-01-23] MEDS: oxyCODONE 5 MG Tab PO PRN (12:51)
--- NOTE | 2017-01-23 12:52 | PCM.DCSUM1 ---
Discharge Summary - Hospital Course Brief History: Ms. Paulino is a 61-year-old woman who has a known history of chronic lung disease, she was admitted through the emergency department with symptoms of increased shortness of breath and cough. - Discharge Data Discharge Date: 01/23/17 Discharge Disposition: Home, Self-Care 01 Condition: Fair - Discharge Diagnosis/Problem(s) (1) Acute bronchitis SNOMED Code(s): 77147559 ICD Code: J20.9 - ACUTE BRONCHITIS, UNSPECIFIED Status: Acute Current Visit: Yes Qualifiers: Bronchitis organism: unspecified organism Qualified Code(s): J20.9 - Acute bronchitis, unspecified (2) COPD with acute exacerbation SNOMED Code(s): 744679984 ICD Code: J44.1 - CHRONIC OBSTRUCTIVE PULMONARY DISEASE W (ACUTE) EXACERBATION Status: Acute Current Visit: Yes (3) (HFpEF) heart failure with preserved ejection fraction SNOMED Code(s): 25916915 ICD Code: I50.30 - UNSPECIFIED DIASTOLIC (CONGESTIVE) HEART FAILURE Status : Chronic Current Visit: No (4) Diabetes mellitus type 2 SNOMED Code(s): 67934391 ICD Code: E11.9 - TYPE 2 DIABETES MELLITUS WITHOUT COMPLICATIONS Status: Chronic Priority: High Current Visit: No - Patient Summary/Data Hospital Course: Ms. Daniel is a 61 year old woman with a known history of chronic lung disease resulting in hypoxia and need for home oxygen. She's had a history of recurrent admissions over the past few years for symptoms of increased shortness of breath. She presented to the emergency room on this occasion with shortness of breath and cough. Evaluation in the emergency department showed no evidence of infiltrate or pneumonia, she was found to be hypoxic, but otherwise afebrile and hemodynamically stable. She was admitted to the hospital with the diagnosis of COPD exacerbation secondary to bronchitis. She also does have a known history of heart failure with preserved left ventricular function. She was continued on her usual dose of Bumex as there was no evidence of decompensation of her heart failure. She was started on IV antibiotic therapy with ceftazidime and doxycycline. She was also given IV Solu-Medrol and nebulizer therapy as needed. With these interventions she improved over the next several days and at the time of discharge still had symptoms of cough but noted significant improvement in her shortness of breath although not yet back to baseline. She will continue prednisone at 20 mg per day and will be treated with an additional 5 days of oral doxycycline. Activity will be as tolerated and she will resume her usual low-sodium diabetic diet. Follow-up appointment will be scheduled with Dr. Gonsalez within one week. - Patient Instructions Diet: Low Sodium, Diabetic Diet Activity: As Tolerated Other/Special Instructions: Please schedule follow-up appointment with Dr. Gonsalez within one week - Discharge Plan Prescriptions/Med Rec: Doxycycline Calcium [IMW: Doxycycline] 100 mg PO Q12H #12 capsule Home Medications: Home Meds Albuterol [Ventolin HFA] 2 puff INH ASDIRECTED PRN 03/01/13 [History] Escitalopram [Lexapro] 30 mg PO BEDTIME 03/01/13 [History] Ipratropium/Albuterol Sulfate [Duoneb 0.5 MG-3 MG/3 ML] 3 ml INH QID 03/01/13 [ History] Metoprolol Succinate [Toprol XL] 25 mg PO BEDTIME 03/01/13 [History] Verapamil HCl [Verelan] 180 mg PO BIDAC 03/01/13 [History] Aspirin 81 mg PO DAILY 08/30/13 [History] Simvastatin [Zocor] 10 mg PO BEDTIME 08/30/13 [History] Magnesium Oxide 400 mg PO BID 09/01/13 [History] Lactobacillus Acidophilus [Probiotic] 1 cap PO BID 04/05/14 [History] Cyclobenzaprine [Flexeril] 10 mg PO TID PRN 09/27/14 [History] Folic Acid 1 mg PO DAILY 09/27/14 [History] metFORMIN [Glucophage] 850 mg PO BID 09/27/14 [History] Gabapentin [Neurontin] 300 mg PO BID 03/28/15 [History] Lisinopril 20 mg PO DAILY 03/28/15 [History] Oxybutynin [Oxybutynin ER] 10 mg PO DAILY 03/28/15 [History] Promethazine [Phenergan] 25 mg PO Q8H PRN 03/28/15 [History] traZODone 50 mg PO BEDTIME 03/28/15 [History] Potassium Chloride [Klor-Con M20] 20 meq PO BID #60 tab.er 07/29/15 [Rx] Cyanocobalamin (Vitamin B12) [Vitamin B12] 1,000 mcg IM Q30D 09/26/15 [History] Ergocalciferol (Vitamin D2) [Vitamin D2] 50,000 unit PO WEEKLY 09/26/15 [History ] Ferrous Sulfate 325 mg PO DAILY 09/26/15 [History] Fluticasone/Salmeterol [Advair Diskus 500-50] 1 puff INH BID 12/05/15 [History] azaTHIOprine [Azathioprine] 150 mg PO DAILY 12/05/15 [History] Isosorbide Mononitrate [Isosorbide Mononitrate ER] 30 mg PO DAILY 04/12/16 [ History] Insulin Aspart [NovoLOG] 10 unit SUBCUT TIDMEALS 06/05/16 [History] Pantoprazole [ProTONIX] 40 mg PO DAILY 07/13/16 [History] Clotrimazole [Mycelex] 10 mg PO ASDIRECTED 07/29/16 [History] Insulin Detemir [Levemir Flextouch] 30 units SQ BID #300 ml 08/28/16 [Rx] LORazepam [Ativan] 0.5 mg PO BID PRN #30 tablet 08/28/16 [Rx] Prednisone [IJD: predniSONE] 20 mg PO DAILY 10/28/16 [History] Spironolactone [Aldactone] 25 mg PO DAILY #30 tablet 12/27/16 [Rx] Bumetanide [Bumex] 2 mg PO DAILY@1400 #0 tablet 01/23/17 [Rx] Bumetanide [Bumex] 3 mg PO DAILY@0800 tablet 01/23/17 [Rx] Doxycycline Calcium [IMW: Doxycycline] 100 mg PO Q12H #12 capsule 01/23/17 [Rx] Referrals: Arnulfo Gonsalez MD [Primary Care Provider] - - Patient Data Vitals - Most Recent: Last Vital Signs Temp 98.2 F 01/23/17 11:44 Pulse 93 01/23/17 11:44 Resp 17 01/23/17 11:44 BP 97/73 01/23/17 11:44 Pulse Ox 95 01/23/17 11:44 Weight - Most Recent: 301 lb 4.01 oz I&O - Last 24 hours: Intake & Output 08/23/17 08/24/17 08/24/17 22:59 06:59 14:59 Intake Total 900 Output Total 1999 500 Balance -1100 -500 Med Orders - Current: Current Medications Acetaminophen (Tylenol) 650 mg PO Q4H PRN PRN Reason: Pain (Mild 1-3)/fever Last Admin: 01/21/17 15:23 Dose: 650 mg Albuterol (Proventil Neb Soln) 2.5 mg NEB Q4H PRN PRN Reason: Shortness Of Breath/wheezing Albuterol/Ipratropium (Duoneb 3.0-0.5 Mg/3 Ml) 3 ml NEB QIDRT [facility] Last Admin: 01/23/17 11:04 Dose: 3 ml Alprazolam (Xanax) 0.25 mg PO BID PRN PRN Reason: Anxiety Last Admin: 01/22/17 20:29 Dose: 0.25 mg Aspirin (Halfprin) 81 mg PO DAILY [facility] Last Admin: 01/23/17 09:32 Dose: 81 mg Azathioprine (Imuran) 150 mg PO DAILY [facility] Last Admin: 01/23/17 09:33 Dose: 150 mg Benzonatate (Tessalon Perles) 100 mg PO TID PRN PRN Reason: Cough Bumetanide (Bumex) 3 mg PO DAILY@0800 [facility] Last Admin: 01/23/17 08:00 Dose: 3 mg Bumetanide (Bumex) 2 mg PO DAILY@1400 [facility] Last Admin: 01/22/17 14:20 Dose: 2 mg Doxycycline Hyclate (Vibramycin) 100 mg PO Q12H [facility] Last Admin: 01/23/17 07:30 Dose: 100 mg Enoxaparin Sodium (Lovenox) 40 mg SUBCUT DAILY [facility] Last Admin: 01/23/17 09:39 Dose: 40 mg Escitalopram Oxalate 10 mg/ (Escitalopram Oxalate 20 mg) 30 mg PO BEDTIME [facility] Last Admin: 01/22/17 21:56 Dose: 30 mg Folic Acid (Folic Acid) 1 mg PO DAILY [facility] Last Admin: 01/23/17 09:32 Dose: 1 mg Gabapentin (Neurontin) 300 mg PO BID [facility] Last Admin: 01/23/17 09:39 Dose: 300 mg Heparin Sodium (Porcine) (Heparin Lock Flush 100 Units/Ml) 500 units FLUSH ASDIRECTED PRN PRN Reason: Flush port Last Admin: 01/22/17 22:12 Dose: 500 units Insulin Aspart (Novolog) 12 unit SUBCUT TIDMEALS [facility] Last Admin: 01/23/17 11:29 Dose: 12 units Insulin Aspart (Novolog) 0 unit SUBCUT QIDACANDBED [facility] PRN Reason: Protocol Last Admin: 01/23/17 11:35 Dose: 6 units Insulin Detemir (Levemir) 40 unit SUBCUT BID [facility] Last Admin: 01/23/17 09:33 Dose: 40 units Isosorbide Mononitrate (Imdur) 30 mg PO DAILY [facility] Last Admin: 01/23/17 09:32 Dose: 30 mg Lactobacillus Rhamnosus (Culturelle) 1 cap PO BID [facility] Last Admin: 01/23/17 09:32 Dose: 1 cap Lisinopril (Prinivil) 20 mg PO DAILY [facility] Last Admin: 01/23/17 09:39 Dose: 20 mg Magnesium Oxide (Magnesium Oxide) 400 mg PO BID [facility] Last Admin: 01/23/17 09:39 Dose: 400 mg Metformin HCl (Glucophage) 850 mg PO BIDMEALS [facility] Last Admin: 01/23/17 08:00 Dose: 850 mg Metoprolol Succinate (Toprol Xl) 25 mg PO BEDTIME [facility] Last Admin: 01/22/17 21:58 Dose: 25 mg Mometasone Furoate/Formoterol Fumar (Dulera 200-5 Mcg) 0 puff IH BIDRT [facility] Last Admin: 01/23/17 07:00 Dose: 2 puff Ondansetron HCl (Zofran Odt) 4 mg PO Q6H PRN PRN Reason: Nausea able to take PO Last Admin: 01/20/17 21:48 Dose: 4 mg Oxybutynin Chloride (Oxybutynin) 5 mg PO BID [facility] Last Admin: 01/23/17 09:39 Dose: 5 mg Oxycodone HCl (Oxycodone) 5 mg PO Q4H PRN PRN Reason: Pain Last Admin: 01/22/17 22:07 Dose: 5 mg Pantoprazole Sodium (Protonix) 40 mg PO DAILY@0730 [facility] Last Admin: 01/23/17 07:30 Dose: 40 mg Polyethylene Glycol (Miralax) 17 gm PO DAILY PRN PRN Reason: Constipation Potassium Chloride (Klor-Con M20) 20 meq PO BID [facility] Last Admin: 01/23/17 09:33 Dose: 20 meq Prednisone (Prednisone) 20 mg PO WITHBREAKFAST [facility] Last Admin: 01/23/17 08:00 Dose: 20 mg Promethazine HCl (Phenergan) 25 mg PO Q8H PRN PRN Reason: Nausea Simvastatin (Zocor) 10 mg PO BEDTIME [facility] Last Admin: 01/22/17 21:58 Dose: 10 mg Spironolactone (Aldactone) 25 mg PO DAILY [facility] Last Admin: 01/23/17 09:32 Dose: 25 mg Trazodone HCl (Trazodone) 50 mg PO BEDTIME [facility] Last Admin: 01/22/17 21:57 Dose: 50 mg Discontinued Medications Bumetanide (Bumex) 5 mg IVPUSH ONETIME ONE Stop: 01/19/17 16:25 Last Admin: 01/19/17 16:49 Dose: 5 mg Escitalopram Oxalate (Lexapro) 30 mg PO BEDTIME [facility] Last Admin: 01/19/17 22:30 Dose: Not Given Escitalopram Oxalate (Lexapro) Confirm Administered Dose 30 mg .ROUTE .STK-MED ONE Stop: 01/19/17 22:28 Last Admin: 01/19/17 22:29 Dose: 30 mg Heparin Sodium (Porcine) (Heparin Lock Flush 100 Units/Ml) Confirm Administered Dose 500 units .ROUTE .STK-MED ONE Stop: 01/19/17 20:50 Last Admin: 01/19/17 21:00 Dose: Not Given Hydromorphone HCl (Dilaudid) 0.5 - 1 mg IVPUSH Q2H PRN PRN Reason: Pain (severe 7-10) Last Admin: 01/20/17 16:46 Dose: 1 mg Ceftazidime 1 gm/ Sodium (Chloride) 50 mls @ 100 mls/hr IV Q8H [facility] Last Admin: 01/20/17 01:50 Dose: 100 mls/hr Doxycycline Hyclate 100 mg/ (Sodium Chloride) 100 mls @ 100 mls/hr IV Q12H [facility] Last Admin: 01/22/17 18:25 Dose: 100 mls/hr Ceftazidime 1 gm/ Sodium (Chloride) 50 mls @ 100 mls/hr IV Q8H [facility] Last Admin: 01/22/17 17:39 Dose: 100 mls/hr Insulin Aspart (Novolog) 14 unit SUBCUT ONETIME ONE Stop: 01/20/17 21:21 Last Admin: 01/20/17 21:50 Dose: 14 unit Insulin Detemir (Levemir) 40 unit SUBCUT BID [facility] Last Admin: 01/19/17 21:10 Dose: 40 units Lorazepam (Ativan) 0.5 mg PO BID PRN PRN Reason: Anxiety Last Admin: 01/21/17 19:43 Dose: 0.5 mg Metformin HCl (Glucophage) 850 mg PO BID [facility] Last Admin: 01/19/17 21:54 Dose: 850 mg Methylprednisolone Sodium Succinate (Solu-Medrol) 125 mg IVPUSH ONETIME ONE Stop: 01/19/17 17:07 Last Admin: 01/19/17 17:28 Dose: 125 mg Methylprednisolone Sodium Succinate (Solu-Medrol) 62.5 mg IVPUSH Q8H [facility] Last Admin: 01/20/17 01:44 Dose: 62.5 mg Methylprednisolone Sodium Succinate (Solu-Medrol) 62.5 mg IVPUSH Q8H [facility] Last Admin: 01/20/17 10:15 Dose: 62.5 mg Methylprednisolone Sodium Succinate (Solu-Medrol) 40 mg IVPUSH Q12H [facility] Last Admin: 01/21/17 10:16 Dose: 40 mg Mometasone Furoate/Formoterol Fumar (Dulera 200-5 Mcg) 0 puff IH BIDRT [facility] Last Admin: 01/20/17 07:11 Dose: 2 puff Morphine Sulfate (Morphine) 15 - 30 mg PO Q4H PRN PRN Reason: pain/sob Last Admin: 01/20/17 21:48 Dose: 15 mg Pantoprazole Sodium (Protonix) 40 mg PO BIDAC [facility] Last Admin: 01/20/17 09:35 Dose: 40 mg Sucralfate (Carafate) 1 gm PO QIDACANDBED [facility] Last Admin: 01/20/17 11:51 Dose: Not Given Verapamil HCl (Calan Sr) 180 mg PO BIDAC [facility] Last Admin: 01/20/17 16:58 Dose: Not Given *Q Meaningful Use (DIS) - VTE *Q VTE Criteria *Q: - Stroke *Q Stroke Criteria *Q: - AMI *Q AMI Criteria *Q:
== END 2017-01-23 15:15 | disposition home or self-care (01) | DRG 140 ==
LOC: JP.ED 15:29 → JP.MS 17:07
PROVIDERS: ADMIT Internal Medicine; ATTEND Hospitalist
DX: J44.0 Chronic obstructive pulmonary disease with (acute) lower respiratory infection (principal); J20.9 Acute bronchitis, unspecified; J44.1 Chronic obstructive pulmonary disease with (acute) exacerbation; I11.0 Hypertensive heart disease with heart failure; I50.30 Unspecified diastolic (congestive) heart failure; E11.9 Type 2 diabetes mellitus without complications; Z79.4 Long term (current) use of insulin; M06.9 Rheumatoid arthritis, unspecified; R09.02 Hypoxemia; E53.8 Deficiency of other specified B group vitamins; Z99.81 Dependence on supplemental oxygen; Z87.01 Personal history of pneumonia (recurrent); F32.9 Major depressive disorder, single episode, unspecified; F41.9 Anxiety disorder, unspecified; K21.9 Gastro-esophageal reflux disease without esophagitis; M19.90 Unspecified osteoarthritis, unspecified site; M54.9 Dorsalgia, unspecified; G89.29 Other chronic pain; Z96.659 Presence of unspecified artificial knee joint; Z88.1 Allergy status to other antibiotic agents; Z79.82 Long term (current) use of aspirin; Z79.52 Long term (current) use of systemic steroids
CPT/HCPCS: 36415; 71010; 71010-26; 80048; 80053; 82803; 82962; 83880; 84484; 85025; 85027; 85610; 93005; 94640-76; 96374; 96375; 99285-25; A9270-GY; C1751; J0713; J1170; J1642; J1650; J2920; J2930; J7030; J7050; J7500; J7620; S0171

== ENCOUNTER 2017-02-22 20:59 | Inpatient (IN) | payer BC, MEDICAID ==
[2017-02-22] MEDS ORDERED: Nitroglycerin 0.4 MG Tab.SL SL PRN (21:39)
--- NOTE | 2017-02-22 21:45 | EDM.PDOC ---
ED HPI GENERAL MEDICAL PROBLEM - General Chief Complaint: Respiratory Problem Stated Complaint: SOB Time Seen by Provider: 02/22/17 21:41 Source of Information: Reports: Patient, Old Records, RN Notes Reviewed History Limitations: Reports: No Limitations - History of Present Illness INITIAL COMMENTS - FREE TEXT/NARRATIVE: 61-year-old female presents emergency department day complaint of shortness of breath, she has known history of chronic obstructive pulmonary disease as well as diastolic congestive heart failure with preserved ejection fraction. She states over the last week or so she has progressively gotten worse she did have treatments with her primary care provider which included Solu-Medrol she felt of September of helped a little over the weekend but now it is progressively gotten worse through the week. Her baseline weight is around 292 she is up to 306 pounds she has not changed her Bumex dosing, is experiencing chest pain shortness of breath no nausea vomiting no diaphoresis no change in bowel habits chest pain Pain Score (Numeric/FACES): 9 - Related Data Allergies Allergy/AdvReac Type Severity Reaction Status Date / Time cephalexin monohydrate Allergy Unknown flusing Verified 02/22/17 21:07 [From Keflex] levofloxacin [Levofloxacin] Allergy Rash Verified 02/22/17 21:07 amoxicillin [Amoxicillin] AdvReac Vomiting Verified 02/22/17 21:07 amoxicillin trihydrate AdvReac Vomiting Verified 02/22/17 21:07 [From Augmentin] erythromycin base AdvReac Nausea and Verified 02/22/17 21:07 [Erythromycin Base] Vomiting potassium clavulanate AdvReac Vomiting Verified 02/22/17 21:07 [From Augmentin] Home Meds: Home Meds Albuterol [Ventolin HFA] 2 puff INH ASDIRECTED PRN 03/01/13 [History] Escitalopram [Lexapro] 30 mg PO BEDTIME 03/01/13 [History] Ipratropium/Albuterol Sulfate [Duoneb 0.5 MG-3 MG/3 ML] 3 ml INH QID 03/01/13 [ History] Metoprolol Succinate [Toprol XL] 25 mg PO BEDTIME 03/01/13 [History] Verapamil HCl [Verelan] 180 mg PO BIDAC 03/01/13 [History] Aspirin 81 mg PO DAILY 08/30/13 [History] Simvastatin [Zocor] 10 mg PO BEDTIME 08/30/13 [History] Magnesium Oxide 400 mg PO BID 09/01/13 [History] Lactobacillus Acidophilus [Probiotic] 1 cap PO BID 04/05/14 [History] Cyclobenzaprine [Flexeril] 10 mg PO TID PRN 09/27/14 [History] Folic Acid 1 mg PO DAILY 09/27/14 [History] metFORMIN [Glucophage] 850 mg PO BID 09/27/14 [History] Gabapentin [Neurontin] 300 mg PO BID 03/28/15 [History] Lisinopril 20 mg PO DAILY 03/28/15 [History] Oxybutynin [Oxybutynin ER] 10 mg PO DAILY 03/28/15 [History] Promethazine [Phenergan] 25 mg PO Q8H PRN 03/28/15 [History] traZODone 50 mg PO BEDTIME 03/28/15 [History] Potassium Chloride [Klor-Con M20] 20 meq PO BID #60 tab.er 07/29/15 [Rx] Cyanocobalamin (Vitamin B12) [Vitamin B12] 1,000 mcg IM Q30D 09/26/15 [History] Ergocalciferol (Vitamin D2) [Vitamin D2] 50,000 unit PO WEEKLY 09/26/15 [History ] Ferrous Sulfate 325 mg PO DAILY 09/26/15 [History] Fluticasone/Salmeterol [Advair Diskus 500-50] 1 puff INH BID 12/05/15 [History] azaTHIOprine [Azathioprine] 150 mg PO DAILY 12/05/15 [History] Isosorbide Mononitrate [Isosorbide Mononitrate ER] 30 mg PO DAILY 04/12/16 [ History] Insulin Aspart [NovoLOG] 10 unit SUBCUT TIDMEALS 06/05/16 [History] Pantoprazole [ProTONIX] 40 mg PO DAILY 07/13/16 [History] Clotrimazole [Mycelex] 10 mg PO ASDIRECTED 07/29/16 [History] Insulin Detemir [Levemir Flextouch] 30 units SQ BID #300 ml 08/28/16 [Rx] LORazepam [Ativan] 0.5 mg PO BID PRN #30 tablet 08/28/16 [Rx] Prednisone [IJD: predniSONE] 20 mg PO DAILY 10/28/16 [History] Spironolactone [Aldactone] 25 mg PO DAILY #30 tablet 12/27/16 [Rx] Bumetanide [Bumex] 2 mg PO DAILY@1400 #0 tablet 01/23/17 [Rx] Bumetanide [Bumex] 3 mg PO DAILY@0800 tablet 01/23/17 [Rx] ALPRAZolam [Alprazolam] 0.25 mg PO ASDIRECTED PRN 02/22/17 [History] Morphine Sulfate 15 mg SL ASDIRECTED PRN 02/22/17 [History] Past Medical History HEENT History: Reports: Impaired Vision Cardiovascular History: Reports: Heart Failure, Hypertension, SOB on Exertion, Other (See Below) Other Cardiovascular History: diastolic congestive heart failure Respiratory History: Reports: Asthma, Bronchitis, Recurrent, COPD, Pneumonia, Recurrent, SOB, Other (See Below) Other Respiratory History: Home O2 and nebs Gastrointestinal History: Reports: Cholelithiasis, GERD, Other (See Below) Other Gastrointestinal History: history of bezoars Genitourinary History: Reports: Urinary Incontinence, Other (See Below) Other Genitourinary History: mass by bladder taken out non cancer [employer] History: Reports: PID, Musculoskeletal History: Reports: Back Pain, Chronic, Osteoarthritis, RA Neurological History: Reports: Migraines Psychiatric History: Reports: Anxiety, Depression, Panic Attack Endocrine/Metabolic History: Reports: Diabetes, Type II, Obesity/BMI 30+ Hematologic History: Reports: B12 Deficiency Immunologic History: Reports: Other (See Below) Other Immunologic History: on medication that affects immunity - Infectious Disease History Infectious Disease History: Reports: Chicken Pox, Measles, Mumps, Rubella - Past Surgical History HEENT Surgical History: Reports: Cataract Surgery, Tonsillectomy Cardiovascular Surgical History: Reports: None Respiratory Surgical History: Reports: None GI Surgical History: Reports: Cholecystectomy Female Surgical History: Reports: Breast Biopsy, Hysterectomy, Tubal Ligation Endocrine Surgical History: Reports: None Neurological Surgical History: Reports: None Musculoskeletal Surgical History: Reports: Knee Replacement Oncologic Surgical History: Reports: None Dermatological Surgical History: Reports: None Social & Family History - Family History Family Medical History: Noncontributory HEENT: Reports: Cataract Cardiac: Reports: CAD Respiratory: Reports: Asthma : Reports: Other (See Below) Other Family History: mom kidney CA Musculoskeletal: Reports: Arthritis, RA Neurological: Reports: CVA, Seizure Endocrine/Metabolic: Reports: Diabetes, type II - Tobacco Use Smoking Status *Q: Never Smoker Years of Tobacco use: 15 Packs/Tins Daily: 1 Used Tobacco, but Quit: Yes Month Tobacco Last Used: Unknown Second Hand Smoke Exposure: No - Caffeine Use Caffeine Use: Reports: Soda Other Caffeine Use: 3 bottles a day - Alcohol Use Days Per Week of Alcohol Use: 0 - Recreational Drug Use Recreational Drug Use: No - Living Situation & Occupation Living situation: Reports: , with Spouse ED ROS GENERAL - Review of Systems Review Of Systems: See Below Constitutional: Denies: Fever, Chills HEENT: Reports: No Symptoms Respiratory: Reports: Shortness of Breath, Cough. Denies: Wheezing, Sputum Cardiovascular: Reports: Chest Pain, Dyspnea on Exertion, Edema. Denies: Palpitations GI/Abdominal: Reports: No Symptoms, Mucous in Stool Musculoskeletal: Reports: No Symptoms Skin: Reports: No Symptoms Neurological: Reports: No Symptoms ED EXAM, GENERAL - Physical Exam Exam: See Below Free Text/Narrative:: General: Female, in mild respiratory distress, alert and oriented x3 HEENT: head is atraumatic normocephalic, eyes pupils equal round reactive to light, sclera clear no conjunctivitis appreciated. Ears blocked by cerumen bilaterally bilaterally canals are clear. Nose no septal deviation, nares are clear, no blood present. Mouth mucosa is moist and pink no erythema or exudate noted in soft palate, tongue is midline uvula is midline, dentition is intact. Neck: Supple no thyromegaly no tracheal deviation. I do not appreciate any JVD Nodes: Cervical nodes subclavicular nodes nontender no palpable lymphadenopathy noted. Lungs: Crackles appreciated in the bases bilaterally CV: Regular rate and rhythm S1 and S2 appreciated no murmurs rubs or gallops noted. Abdomen: Soft, nontender, no palpable masses or organomegaly appreciated, no distention no guarding bowel sounds are present, . Neuro: Cranial nerves II through XII grossly intact Skin: Warm and dry, intact Extremities: +1 pitting edema bilaterally, pedal pulse is +2. Course - Vital Signs Last Recorded V/S: Last Vital Signs Temp 99.5 F 02/22/17 21:06 Pulse 103 H 02/22/17 22:16 Resp 32 H 02/22/17 21:06 BP 160/59 H 02/22/17 22:23 Pulse Ox 95 02/22/17 22:16 - Orders/Labs/Meds Orders: Active Orders 24 hr Category Date Time Status Cardiac Monitoring [RC] .As Directed Care 02/22/17 21:40 Active EKG Documentation Completion [RC] ASDIRECTED Care 02/22/17 21:41 Active Chest 1V Frontal [CR] Stat Exams 02/22/17 21:41 Taken Nitroglycerin [Nitrostat] Med 02/22/17 21:39 Active 0.4 mg SL Q5M PRN EKG 12 Lead [EK] Stat Ther 02/22/17 21:41 Ordered Medication Orders Nitroglycerin (Nitrostat) 0.4 mg SL Q5M PRN PRN Reason: Chest Pain Stop: 02/23/17 21:40 Last Admin: 02/22/17 22:22 Dose: 0.4 mg Labs: Laboratory Tests 02/22/17 02/22/17 02/22/17 Range/Units 22:05 22:05 22:05 WBC 10.7 (4.5-11.0) K/uL RBC 4.50 (3.30-5.50) M/uL Hgb 12.5 (12.0-15.0) g/dL Hct 40.4 (36.0-48.0) % MCV 90 (80-98) fL MCH 28 (27-31) pg MCHC 31 L (32-36) % Plt Count 287 (150-400) K/uL Neut % (Auto) 72 H (36-66) % Lymph % (Auto) 16 L (24-44) % Foster % (Auto) 11 H (2-6) % Eos % (Auto) 2 (2-4) % Baso % (Auto) 0 (0-1) % Sodium 143 (140-148) mmol/L Potassium 3.8 (3.6-5.2) mmol/L Chloride 103 (100-108) mmol/L Carbon Dioxide 33 H (21-32) mmol/L Anion Gap 10.8 (5.0-14.0) mmol/L BUN 19 H (7-18) mg/dL Creatinine 0.9 (0.6-1.0) mg/dL Est Cr Clr Drug Dosing 59.89 mL/min Estimated GFR (MDRD) > 60 (>60) Glucose 238 H (74-106) mg/dL Lactic Acid 3.0 H (0.4-2.0) mmol/L Calcium 8.8 (8.5-10.1) mg/dL Total Bilirubin 0.2 D (0.2-1.0) mg/dL AST 13 L (15-37) U/L ALT 24 (12-78) U/L Alkaline Phosphatase 93 (46-116) U/L Troponin I < 0.017 (0.000-0.056) ng/mL NT-Pro-B Natriuret Pep 132 H (5-125) pg/mL Total Protein 6.6 (6.4-8.2) g/dL Albumin 3.2 L (3.4-5.0) g/dL Globulin 3.4 (2.3-3.5) g/dL Albumin/Globulin Ratio 0.9 L (1.2-2.2) Meds: Medications Generic Name Dose Route Start Last Admin Trade Name Freq PRN Reason Stop Dose Admin Nitroglycerin 0.4 mg 02/22/17 21:39 02/22/17 22:22 Nitrostat SL 02/23/17 21:40 0.4 mg Q5M PRN Administration Chest Pain Discontinued Medications Generic Name Dose Route Start Last Admin Trade Name Freq PRN Reason Stop Dose Admin Bumetanide 5 mg 02/22/17 21:50 02/22/17 22:23 Bumex IVPUSH 02/22/17 21:51 5 mg ONETIME ONE Administration Departure - Departure Time of Disposition: 22:49 Disposition: Admitted As Inpatient 64 Condition: Poor Clinical Impression: COPD (chronic obstructive pulmonary disease) Qualifiers: COPD type: unspecified COPD Qualified Code(s): J44.9 - Chronic obstructive pulmonary disease, unspecified - Discharge Information Referrals: Arnulfo Gonsalez MD [Primary Care Provider] - Forms: ED Department Discharge - My Orders Last 24 Hours: My Active Orders 02/22/17 21:39 Nitroglycerin [Nitrostat] 0.4 mg SL Q5M PRN 02/22/17 21:40 Cardiac Monitoring [RC] .As Directed 02/22/17 21:41 EKG Documentation Completion [RC] ASDIRECTED Chest 1V Frontal [CR] Stat EKG 12 Lead [EK] Stat - Assessment/Plan Last 24 Hours: My Active Orders 02/22/17 21:39 Nitroglycerin [Nitrostat] 0.4 mg SL Q5M PRN 02/22/17 21:40 Cardiac Monitoring [RC] .As Directed 02/22/17 21:41 EKG Documentation Completion [RC] ASDIRECTED Chest 1V Frontal [CR] Stat EKG 12 Lead [EK] Stat Plan: Assessment Acuity = acute Site and laterality = dyspnea complicated in a patient with known history of congestive heart failure with ejection fraction preserved, and chronic obstructive pulmonary disease Etiology = suspicious for exacerbation of congestive heart failure versus pulmonary disease Manifestations = dyspnea, cough Location of injury = Home Lab values = CBC unremarkable glucose elevated to 38 consistent hyperglycemia lactic acid elevated at 3.0 BNP mildly elevated 132 albumin low at 3.2 consistent hypoalbuminemia chest x-ray shows no acute respiratory process EKG demonstrates a sinus rhythm no ST changes or depressions Plan Called discussed case with hospitalist on-call they agreed to come and evaluate the patient in the ED for admission This note was dictated using [employer] voice recognition software please call with any questions.
[2017-02-22] MEDS ORDERED: Bumetanide 2.5 MG/10 ML MDV IVPUSH ONE (21:50)
[2017-02-23] MEDS ORDERED: Cyclobenzaprine 10 MG Tab PO PRN (00:14)
[2017-02-23] MEDS ORDERED: Zolpidem 5 MG Tab PO PRN (00:14)
[2017-02-23] MEDS ORDERED: ALPRAZolam 0.25 MG Tab PO PRN (00:14)
[2017-02-23] MEDS ORDERED: Bisacodyl 5 MG Tab PO PRN (00:14)
[2017-02-23] MEDS ORDERED: Docusate Sodium 100 MG Cap PO PRN (00:14)
[2017-02-23] MEDS ORDERED: LORazepam 2 MG/ML MDV IV PRN (00:14)
[2017-02-23] MEDS ORDERED: Albuterol 0.083% 2.5 MG/3 ML Neb Soln NEB PRN (00:14)
[2017-02-23] MEDS ORDERED: methylPREDNISolone Sodium Succinate 125 MG/2 ML SDV IV ONE (00:14)
[2017-02-23] MEDS ORDERED: Sodium Chloride 0.9% 10 ML Syringe FLUSH PRN (00:14)
[2017-02-23] MEDS ORDERED: cefTAZidime 1 GM in Sodium Chloride 0.9% 50 ML IV SCH ×2 (00:15→09:00)
[2017-02-23] MEDS ORDERED: Clotrimazole 10 MG Troche PO SCH (00:15)
[2017-02-23] MEDS: Morphine 2 MG/ML Syringe IVPUSH PRN ×3 (01:16→10:00)
--- NOTE | 2017-02-23 01:52 | PCM.HP ---
H&P History of Present Illness - General Date of Service: 02/22/17 Admit Problem/Dx: Admission Diagnosis/Problem Admission Diagnosis/Problem COPD with acute lower respiratory infection Source of Information: Patient, Old Records, Provider, RN History Limitations: Reports: No Limitations - History of Present Illness Initial Comments - Free Text/Narative: Chief Complaint: Respiratory Problem Stated Complaint: SOB - History of Present Illness molars 61-year-old female presents emergency department day complaint of shortness of breath, she has known history of chronic obstructive pulmonary disease as well as diastolic congestive heart failure with preserved ejection fraction. She states over the last week or so she has progressively gotten worse she did have treatments with her primary care provider which included Solu-Medrol she felt of September of helped a little over the weekend but now it is progressively gotten worse through the week. Her baseline weight is around 292 she is up to 306 pounds she has not changed her Bumex dosing, is experiencing chest pain shortness of breath no nausea vomiting no diaphoresis no change in bowel habits. Site and laterality = dyspnea complicated in a patient with known history of congestive heart failure with ejection fraction preserved, and chronic obstructive pulmonary disease Etiology = suspicious for exacerbation of congestive heart failure versus pulmonary disease Manifestations = dyspnea, cough Lab values = CBC unremarkable glucose elevated to 38 consistent hyperglycemia lactic acid elevated at 3.0 BNP mildly elevated 132 albumin low at 3.2 consistent hypoalbuminemia chest x-ray shows no acute respiratory process EKG demonstrates a sinus rhythm no ST changes or depressions Plan - patient admitted for admission Onset of Symptoms: Reports: Gradual Duration of Symptoms: Reports: Day(s):, Getting Worse Location: Reports: Generalized Quality: Reports: Same as Previous Episode Improves with: Reports: None Worsens with: Reports: Movement Context: Reports: Other (Chronic disease) Associated Symptoms: Reports: Cough, Fever/Chills, Shortness of Breath chest pain Pain Score (Numeric/FACES): 8 - Related Data Allergies/Adverse Reactions: Allergies Allergy/AdvReac Type Severity Reaction Status Date / Time cephalexin monohydrate Allergy Unknown flusing Verified 02/22/17 21:07 [From Keflex] levofloxacin [Levofloxacin] Allergy Rash Verified 02/22/17 21:07 amoxicillin [Amoxicillin] AdvReac Vomiting Verified 02/22/17 21:07 amoxicillin trihydrate AdvReac Vomiting Verified 02/22/17 21:07 [From Augmentin] erythromycin base AdvReac Nausea and Verified 02/22/17 21:07 [Erythromycin Base] Vomiting potassium clavulanate AdvReac Vomiting Verified 02/22/17 21:07 [From Augmentin] Home Medications: Home Meds Albuterol [Ventolin HFA] 2 puff INH ASDIRECTED PRN 03/01/13 [History] Escitalopram [Lexapro] 30 mg PO BEDTIME 03/01/13 [History] Ipratropium/Albuterol Sulfate [Duoneb 0.5 MG-3 MG/3 ML] 3 ml INH QID 03/01/13 [ History] Metoprolol Succinate [Toprol XL] 25 mg PO BEDTIME 03/01/13 [History] Verapamil HCl [Verelan] 180 mg PO BIDAC 03/01/13 [History] Aspirin 81 mg PO DAILY 08/30/13 [History] Simvastatin [Zocor] 10 mg PO BEDTIME 08/30/13 [History] Magnesium Oxide 400 mg PO BID 09/01/13 [History] Lactobacillus Acidophilus [Probiotic] 1 cap PO BID 04/05/14 [History] Cyclobenzaprine [Flexeril] 10 mg PO TID PRN 09/27/14 [History] Folic Acid 1 mg PO DAILY 09/27/14 [History] metFORMIN [Glucophage] 850 mg PO BID 09/27/14 [History] Gabapentin [Neurontin] 300 mg PO BID 03/28/15 [History] Lisinopril 20 mg PO DAILY 03/28/15 [History] Oxybutynin [Oxybutynin ER] 10 mg PO DAILY 03/28/15 [History] Promethazine [Phenergan] 25 mg PO Q8H PRN 03/28/15 [History] traZODone 50 mg PO BEDTIME 03/28/15 [History] Potassium Chloride [Klor-Con M20] 20 meq PO BID #60 tab.er 07/29/15 [Rx] Cyanocobalamin (Vitamin B12) [Vitamin B12] 1,000 mcg IM Q30D 09/26/15 [History] Ergocalciferol (Vitamin D2) [Vitamin D2] 50,000 unit PO WEEKLY 09/26/15 [History ] Ferrous Sulfate 325 mg PO DAILY 09/26/15 [History] Fluticasone/Salmeterol [Advair Diskus 500-50] 1 puff INH BID 12/05/15 [History] azaTHIOprine [Azathioprine] 150 mg PO DAILY 12/05/15 [History] Isosorbide Mononitrate [Isosorbide Mononitrate ER] 30 mg PO DAILY 04/12/16 [ History] Insulin Aspart [NovoLOG] 12 unit SUBCUT TIDMEALS 06/05/16 [History] Pantoprazole [ProTONIX] 40 mg PO DAILY 07/13/16 [History] Clotrimazole [Mycelex] 10 mg PO ASDIRECTED 07/29/16 [History] Insulin Detemir [Levemir Flextouch] 30 units SQ BID #300 ml 08/28/16 [Rx] Prednisone [IJD: predniSONE] 20 mg PO DAILY 10/28/16 [History] Spironolactone [Aldactone] 25 mg PO DAILY #30 tablet 12/27/16 [Rx] Bumetanide [Bumex] 2 mg PO DAILY@1400 #0 tablet 01/23/17 [Rx] Bumetanide [Bumex] 3 mg PO DAILY@0800 tablet 01/23/17 [Rx] ALPRAZolam [Alprazolam] 0.25 mg PO ASDIRECTED PRN 02/22/17 [History] Morphine Sulfate 15 mg SL ASDIRECTED PRN 02/22/17 [History] Past Medical History HEENT History: Reports: Cataract, Impaired Vision Cardiovascular History: Reports: Angina, Heart Failure, Hypertension, SOB on Exertion, Other (See Below) Other Cardiovascular History: diastolic congestive heart failure Respiratory History: Reports: Asthma, Bronchitis, Recurrent, COPD, Pneumonia, Recurrent, SOB, Other (See Below) Other Respiratory History: Home 3l O2 and nebs Gastrointestinal History: Reports: Cholelithiasis, GERD, Other (See Below) Other Gastrointestinal History: history of bezoars Genitourinary History: Reports: Diabetic Nephropathy, Urinary Incontinence, Other (See Below) Other Genitourinary History: mass by bladder taken out non cancer DISPLAY DECORATOR History: Reports: PID, , Spontaneous Musculoskeletal History: Reports: Back Pain, Chronic, Osteoarthritis, RA Neurological History: Reports: Neuropathy, Diabetic Psychiatric History: Reports: Anxiety, Depression, Panic Attack Endocrine/Metabolic History: Reports: Diabetes, Type II, Obesity/BMI 30+, Osteoporosis Hematologic History: Reports: B12 Deficiency Immunologic History: Reports: Immunosuppression, Other (See Below) Other Immunologic History: on medication that affects immunity Oncologic (Cancer) History: Reports: None Dermatologic History: Reports: Other (See Below) Other Dermatologic History: chronic sore left arm - Infectious Disease History Infectious Disease History: Reports: Chicken Pox, Measles, Mumps, Rubella - Past Surgical History HEENT Surgical History: Reports: Cataract Surgery, Tonsillectomy Cardiovascular Surgical History: Reports: None Respiratory Surgical History: Reports: None GI Surgical History: Reports: Cholecystectomy, Colon, EGD Female Surgical History: Reports: Breast Biopsy, Hysterectomy, Tubal Ligation Endocrine Surgical History: Reports: None Neurological Surgical History: Reports: None Musculoskeletal Surgical History: Reports: Knee Replacement Oncologic Surgical History: Reports: None Dermatological Surgical History: Reports: None Social & Family History - Family History Family Medical History: Noncontributory HEENT: Reports: Cataract Cardiac: Reports: CAD Respiratory: Reports: Asthma : Reports: Other (See Below) Other Family History: mom kidney CA Musculoskeletal: Reports: Arthritis, RA Neurological: Reports: CVA, Seizure Endocrine/Metabolic: Reports: Diabetes, type II - Tobacco Use Smoking Status *Q: Former Smoker Years of Tobacco use: 15 Packs/Tins Daily: 2 Used Tobacco, but Quit: Yes Month Tobacco Last Used: 06/1979 Second Hand Smoke Exposure: Yes - Caffeine Use Caffeine Use: Reports: Soda Other Caffeine Use: 3 bottles a day Caffeine Use Comment: 2-3 daily - Alcohol Use Days Per Week of Alcohol Use: 0 - Recreational Drug Use Recreational Drug Use: No - Living Situation & Occupation Living situation: Reports: , with Spouse, Other (Her son is her PROPERTY DISPOSAL MANAGER care provider) Occupation: Disabled H&P Review of Systems - Review of Systems: Review Of Systems: See Below General: Reports: Chills, Weakness, Fatigue, Weight Gain (14 pounds) HEENT: Reports: No Symptoms Pulmonary: Reports: Shortness of Breath, Wheezing, Pleuritic Chest Pain, Cough, Sputum Cardiovascular: Reports: Dyspnea on Exertion, Edema Gastrointestinal: Reports: No Symptoms Genitourinary: Reports: No Symptoms Musculoskeletal: Reports: Other (Rheumatoid arthritis generalized body aches and pains) Skin: Reports: Bruising, Wound, Other (Easily bruised, skin is fragile) Psychiatric: Reports: Anxiety Neurological: Reports: Difficulty Walking (Due to shortness of breath and increased weight), Weakness Hematologic/Lymphatic: Reports: Easy Bruising Immunologic: Reports: No Symptoms, Other (Multiple medication allergies) Exam - Exam Exam: See Below - Vital Signs Vital Signs: Last Vital Signs Temp 37.7 C 02/23/17 00:27 Pulse 99 02/23/17 01:24 Resp 20 02/23/17 00:27 BP 161/91 H 02/23/17 01:24 Pulse Ox 94 L 02/23/17 00:56 Weight: 136.803 kg - Exam Quality Assessment: Supplemental Oxygen, Other (Port-A-Cath left upper chest) General: Alert, Oriented, Cooperative, Mild Distress HEENT: PERRLA, Hearing Intact, Mucosa Moist & [place], Nares Patent, Normal Nasal Septum, Posterior Pharynx Clear, Conjunctiva Clear, EOMI, EACs Clear, TMs Clear Neck: Supple, Trachea Midline, 2 Lungs: Decreased Breath Sounds, Wheezing Cardiovascular: Regular Rate, Regular Rhythm GI/Abdominal Exam: Normal Bowel Sounds, Soft, Non-Tender, No Organomegaly, No Distention, No Abnormal Bruit, No Mass, Pelvis Stable (Female) Exam: Deferred Rectal (Female) Exam: Deferred Back Exam: Normal Inspection, Full Range of Motion Extremities: Normal Capillary Refill (1+ pitting edema), Pedal Edema Peripheral Pulses: 2+: Radial (L), Radial (R) Skin: Warm, Dry, Ecchymosis (Noted to forearms) Neurological: Reflexes Equal Bilateral, Strength Equal Bilateral Neuro Extensive - Mental Status: Alert, Oriented x3, Normal Mood/Affect, Normal Cognition Neuro Extensive - Motor, Sensory, Reflexes: Normal Reflexes Psychiatric: Alert, Normal Affect, Normal Mood - Patient Data Result Diagrams: 02/22/17 22:05 02/22/17 22:05 *Q Meaningful Use (ADM) - VTE *Q VTE Criteria *Q: - Stroke *Q Stroke Criteria *Q: - AMI *Q AMI Criteria *Q: - Problem List (1) COPD exacerbation SNOMED Code(s): 202473646, 648027051 ICD Code: J44.1 - CHRONIC OBSTRUCTIVE PULMONARY DISEASE W (ACUTE) EXACERBATION Status: Acute Priority: High Current Visit: Yes (2) CHF (congestive heart failure) SNOMED Code(s): 22093558 ICD Code: I50.9 - HEART FAILURE, UNSPECIFIED Status: Chronic Priority: High Current Visit: Yes Qualifiers: Congestive heart failure type: combined Congestive heart failure chronicity : acute on chronic Qualified Code(s): I50.43 - Acute on chronic combined systolic (congestive) and diastolic (congestive) heart failure (3) Diabetes mellitus type 2 SNOMED Code(s): 28597379 ICD Code: E11.9 - TYPE 2 DIABETES MELLITUS WITHOUT COMPLICATIONS Status: Chronic Priority: High Current Visit: Yes (4) Rheumatoid arthritis SNOMED Code(s): 57262936 ICD Code: M06.9 - RHEUMATOID ARTHRITIS, UNSPECIFIED Status: Chronic Priority: Medium Current Visit: Yes Qualifiers: Rheumatoid arthritis location: unspecified site Rheumatoid factor presence : unspecified presence Qualified Code(s): M06.9 - Rheumatoid arthritis, unspecified Problem List Initiated/Reviewed/Updated: Yes Orders Last 24hrs: Active Orders 24 hr Category Date Time Status Patient Status [ADT] Routine ADT 02/23/17 00:14 Active Communication Order [RC] ASDIRECTED Care 02/23/17 00:14 Active Diabetes Education [RC] Click to Edit Care 02/23/17 00:14 Active Intake and Output [RC] QSHIFT Care 02/23/17 00:14 Active Notify Provider Vital Signs [RC] ASDIRECTED Care 02/23/17 00:14 Active Notify Provider [RC] PRN Care 02/23/17 00:14 Active Oxygen Therapy [RC] PRN Care 02/23/17 00:14 Active Pulse Oximetry [RC] CONTINUOUS Care 02/23/17 00:14 Active RT Aerosol Therapy [RC] ASDIRECTED Care 02/23/17 00:14 Active Up With Assistance [RC] ASDIRECTED Care 02/23/17 00:14 Active VTE/DVT Education [RC] Per Unit Routine Care 02/23/17 00:14 Active Vital Signs [RC] Q4H Care 02/23/17 00:14 Active Consistent Carbohydrate Diet [DIET] Diet 02/23/17 Breakfast Active BASIC METABOLIC PANEL,BMP [CHEM] AM Lab 02/23/17 05:11 Ordered CBC WITH AUTO DIFF [HEME] AM Lab 02/23/17 05:11 Ordered CULTURE RESPIRATORY + SMEAR [RM] Urgent Lab 02/23/17 00:14 Uncollected GLUCOSE POC LAB TO COLLECT [POC] QIDACANDBED Lab 02/23/17 07:30 Ordered GLUCOSE POC LAB TO COLLECT [POC] QIDACANDBED Lab 02/23/17 11:30 Ordered GLUCOSE POC LAB TO COLLECT [POC] QIDACANDBED Lab 02/23/17 16:30 Ordered GLUCOSE POC LAB TO COLLECT [POC] QIDACANDBED Lab 02/23/17 21:00 Ordered ALPRAZolam [Xanax] Med 02/23/17 00:14 Pending 0.25 mg PO ASDIRECTED PRN Acetaminophen [Tylenol] Med 02/23/17 00:14 Active 650 mg PO Q4H PRN Albuterol [Proventil Neb Soln] Med 02/23/17 00:14 Active 2.5 mg NEB Q4H PRN Albuterol/Ipratropium [DuoNeb 3.0-0.5 MG/3 ML] Med 02/23/17 07:00 Active 3 ml NEB QIDRT Bisacodyl [Dulcolax] Med 02/23/17 00:14 Active 5 mg PO DAILY PRN Bumetanide [Bumex] Med 02/23/17 14:00 Active 2 mg PO DAILY@1400 Bumetanide [Bumex] Med 02/23/17 08:00 Active 3 mg PO DAILY@0800 Clotrimazole [Mycelex] Med 02/23/17 00:15 Pending 10 mg PO ASDIRECTED Cyclobenzaprine [Flexeril] Med 02/23/17 00:14 Active 10 mg PO TID PRN Docusate Sodium [Colace] Med 02/23/17 00:14 Active 100 mg PO BID PRN Doxycycline [Vibramycin] Med 02/23/17 09:00 Active 100 mg PO BID Enoxaparin [Lovenox] Med 02/23/17 09:00 Active 40 mg SUBCUT DAILY Escitalopram [Lexapro] Med 02/23/17 21:00 Active 30 mg PO BEDTIME Folic Acid Med 02/23/17 09:00 Active 1 mg PO DAILY Gabapentin [Neurontin] Med 02/23/17 09:00 Active 300 mg PO BID Heparin Sodium [Heparin Lock Flush 100 Units/ML] Med 02/23/17 00:37 Active 500 units FLUSH ASDIRECTED PRN Insulin Aspart [NovoLOG] Med 02/23/17 08:00 Active 12 unit SUBCUT TIDMEALS Insulin Aspart [NovoLOG] Med 02/23/17 07:00 Active See Protocol SUBCUT QIDACANDBED Insulin Detemir [Levemir] Med 02/23/17 09:00 Active 40 unit SUBCUT BID Isosorbide Mononitrate [Imdur] Med 02/23/17 09:00 Active 30 mg PO DAILY LORazepam [Ativan] Med 02/23/17 00:14 Active 1 mg IV Q6H PRN Lactobacillus Rhamnosus GG [Culturelle] Med 02/23/17 09:00 Active 1 cap PO BID Lisinopril [Prinivil] Med 02/23/17 09:00 Active 20 mg PO DAILY Magnesium Oxide Med 02/23/17 09:00 Active 400 mg PO BID Metoprolol Succinate [Toprol XL] Med 02/23/17 21:00 Active 25 mg PO BEDTIME Mometasone/Formoterol [Dulera 200-5 MCG] Med 02/23/17 09:00 Active 0 puff IH BID Morphine Med 02/23/17 00:14 Active 2 mg IVPUSH Q2H PRN Ondansetron [Zofran ODT] Med 02/23/17 00:14 Active 4 mg PO Q6H PRN Pantoprazole [ProTONIX] Med 02/23/17 09:00 Active 40 mg PO DAILY Potassium Chloride [Klor-Con M20] Med 02/23/17 08:00 Active 20 meq PO BIDMEALS Sodium Chloride 0.9% [Saline Flush] Med 02/23/17 00:14 Active 10 ml FLUSH ASDIRECTED PRN Spironolactone [Aldactone] Med 02/23/17 09:00 Active 25 mg PO DAILY Verapamil [Calan SR] Med 02/23/17 07:30 Active 180 mg PO BIDAC Zolpidem [Ambien] Med 02/23/17 00:14 Active 5 mg PO BEDTIME PRN azaTHIOprine [Imuran] Med 02/23/17 09:00 Active 150 mg PO DAILY cefTAZidime [Fortaz] 1 gm Med 02/23/17 00:15 Active Sodium Chloride 0.9% [Normal Saline] 50 ml IV Q8H methylPREDNISolone Sod Succ [Solu-MEDROL] Med 02/23/17 06:10 Active 62.5 mg IV Q6H traZODone Med 02/23/17 21:00 Active 50 mg PO BEDTIME Saline Lock Insert [OM.PC] Routine Oth 02/23/17 00:14 Ordered Resuscitation Status Routine Resus Stat 02/22/17 23:53 Ordered Medication Orders Acetaminophen (Tylenol) 650 mg PO Q4H PRN PRN Reason: Pain (Mild 1-3)/fever Albuterol (Proventil Neb Soln) 2.5 mg NEB Q4H PRN PRN Reason: Shortness Of Breath/wheezing Albuterol/Ipratropium (Duoneb 3.0-0.5 Mg/3 Ml) 3 ml NEB QIDRT [facility] Alprazolam (Xanax) 0.25 mg PO ASDIRECTED PRN PRN Reason: Anxiety Azathioprine (Imuran) 150 mg PO DAILY [facility] Bisacodyl (Dulcolax) 5 mg PO DAILY PRN PRN Reason: Constipation Bumetanide (Bumex) 2 mg PO DAILY@1400 [facility] Bumetanide (Bumex) 3 mg PO DAILY@0800 [facility] Clotrimazole (Mycelex) 10 mg PO ASDIRECTED [facility] Cyclobenzaprine HCl (Flexeril) 10 mg PO TID PRN PRN Reason: Pain Docusate Sodium (Colace) 100 mg PO BID PRN PRN Reason: Constipation Doxycycline Hyclate (Vibramycin) 100 mg PO BID [facility] Enoxaparin Sodium (Lovenox) 40 mg SUBCUT DAILY [facility] Escitalopram Oxalate (Lexapro) 30 mg PO BEDTIME [facility] Folic Acid (Folic Acid) 1 mg PO DAILY [facility] Gabapentin (Neurontin) 300 mg PO BID [facility] Heparin Sodium (Porcine) (Heparin Lock Flush 100 Units/Ml) 500 units FLUSH ASDIRECTED PRN PRN Reason: IV Use Ceftazidime 1 gm/ Sodium (Chloride) 50 mls @ 100 mls/hr IV Q8H [facility] Last Admin: 02/23/17 00:39 Dose: 100 mls/hr Insulin Aspart (Novolog) 0 unit SUBCUT QIDACANDBED [facility] PRN Reason: Protocol Insulin Aspart (Novolog) 12 unit SUBCUT TIDMEALS [facility] Insulin Detemir (Levemir) 40 unit SUBCUT BID [facility] Isosorbide Mononitrate (Imdur) 30 mg PO DAILY [facility] Lactobacillus Rhamnosus (Culturelle) 1 cap PO BID [facility] Lisinopril (Prinivil) 20 mg PO DAILY [facility] Lorazepam (Ativan) 1 mg IV Q6H PRN PRN Reason: Nausea/Vomiting Magnesium Oxide (Magnesium Oxide) 400 mg PO BID [facility] Methylprednisolone Sodium Succinate (Solu-Medrol) 62.5 mg IV Q6H [facility] Metoprolol Succinate (Toprol Xl) 25 mg PO BEDTIME [facility] Mometasone Furoate/Formoterol Fumar (Dulera 200-5 Mcg) 0 puff IH BID [facility] Morphine Sulfate (Morphine) 2 mg IVPUSH Q2H PRN PRN Reason: Pain (severe 7-10) Last Admin: 02/23/17 01:16 Dose: 2 mg Nitroglycerin (Nitrostat) 0.4 mg SL Q5M PRN PRN Reason: Chest Pain Stop: 02/23/17 21:40 Last Admin: 02/22/17 22:22 Dose: 0.4 mg Ondansetron HCl (Zofran Odt) 4 mg PO Q6H PRN PRN Reason: Nausea able to take PO Pantoprazole Sodium (Protonix) 40 mg PO DAILY [facility] Potassium Chloride (Klor-Con M20) 20 meq PO BIDMEALS [facility] Sodium Chloride (Saline Flush) 10 ml FLUSH ASDIRECTED PRN PRN Reason: Keep Vein Open Spironolactone (Aldactone) 25 mg PO DAILY [facility] Trazodone HCl (Trazodone) 50 mg PO BEDTIME [facility] Verapamil HCl (Calan Sr) 180 mg PO BIDAC [facility] Zolpidem Tartrate (Ambien) 5 mg PO BEDTIME PRN PRN Reason: Sleep Assessment/Plan Comment:: Assessment and plan Chief Complaint: Respiratory Problem Stated Complaint: SOB - History of Present Illness molars 61-year-old female presents emergency department day complaint of shortness of breath, she has known history of chronic obstructive pulmonary disease as well as diastolic congestive heart failure with preserved ejection fraction. She states over the last week or so she has progressively gotten worse she did have treatments with her primary care provider which included Solu-Medrol she felt of May of helped a little over the weekend but now it is progressively gotten worse through the week. Her baseline weight is around 292 she is up to 306 pounds she has not changed her Bumex dosing, is experiencing chest pain shortness of breath no nausea vomiting no diaphoresis no change in bowel habits. Site and laterality = dyspnea complicated in a patient with known history of congestive heart failure with ejection fraction preserved, and chronic obstructive pulmonary disease Etiology = suspicious for exacerbation of congestive heart failure versus pulmonary disease Manifestations = dyspnea, cough Lab values = CBC unremarkable glucose elevated to 38 consistent hyperglycemia lactic acid elevated at 3.0 BNP mildly elevated 132 albumin low at 3.2 consistent hypoalbuminemia chest x-ray shows no acute respiratory process EKG demonstrates a sinus rhythm no ST changes or depressions Plan - patient admitted for admission [address] [place] [address] Acute COPD exacerbation with lower respiratory infection. -Solu-Medrol 125 IV now then 62.5 mg every 6 hours -Doxycycline 100 mg by mouth twice a day -IV Ceftazidime 1 g every 8 hours -Scheduled Atrovent/albuterol nebs -albuterol nebs when necessary -Sputum culture pending -Pain control as directed Heart failure with preserved ejection fraction -Continue outpatient management Insulin-dependent diabetes; blood glucose often rise after she has been started on steroids. Baseline suboptimal control of her diabetes. -Diabetic diet, consistent carb -Increase Levemir dose to 40 units subcut twice a day -Increase NovoLog 12 units with meals -High dose sliding scale insulin Chronic rheumatoid arthritis -Continue indications at this prescribed Maintenance issues -DVT prophylaxis- Lovenox 40 mg subcut -GI prophylaxis- Protonix 40 mg by mouth daily -Diet nutrition; consistent carb diet -Dougherty catheter- not indicated at this time CODE STATUS: Full code Admission justification: This patient will be admitted for inpatient services as a medically appropriate meeting medical necessity for inpatient admission as outlined in my documentation. I reasonably expect the patient will require inpatient services at spanning a time over to midnight. I recently expect this patient to be discharged or transferred within 96 hours after admission to the critical access Hospital. Disposition: Home with , her Son is her PROPERTY DISPOSAL MANAGER provider Primary care physician: Dr. Gonsalez Hospitalist: Dr. Hemphill
[2017-02-23] MEDS: ALPRAZolam 0.25 MG Tab PO PRN (02:52)
[2017-02-23] MEDS: Clotrimazole 10 MG Troche PO SCH ×5 (05:46→21:08)
[2017-02-23] MEDS: Acetaminophen 325 MG Tab PO PRN ×2 (05:50→13:57)
[2017-02-23] MEDS ORDERED: methylPREDNISolone Sodium Succinate 40 MG/1 ML SDV ONE (05:57)
[2017-02-23] MEDS ORDERED: methylPREDNISolone Sodium Succinate 40 MG/1 ML SDV IV SCH (06:10)
[2017-02-23] MEDS: Albuterol/Ipratropium 3.0-0.5 MG/3 ML Neb Soln NEB SCH ×4 (07:12→21:03)
[2017-02-23] MEDS: Formoterol/Mometasone 200-5 MCG 8.8 GM Inhaler IH SCH ×2 (08:53→21:04)
[2017-02-23] MEDS: Verapamil 180 MG Tab.ER PO SCH ×2 (08:57→17:30)
[2017-02-23] MEDS: Bumetanide 1 MG Tab PO SCH ×2 (08:58→13:57)
[2017-02-23] MEDS: Potassium Chloride 20 MEQ Tab.ER PO SCH ×2 (08:59→17:31)
[2017-02-23] MEDS: Spironolactone 25 MG Tab PO SCH (09:00)
[2017-02-23] MEDS ORDERED: Formoterol/Mometasone 200-5 MCG 8.8 GM Inhaler IH SCH (09:00)
[2017-02-23] MEDS ORDERED: Pantoprazole 40 MG Tab.CR PO SCH (09:00)
[2017-02-23] MEDS: Folic Acid 1 MG Tab PO SCH (09:00)
[2017-02-23] MEDS: Isosorbide Mononitrate 30 MG Tab.ER PO SCH (09:00)
[2017-02-23] MEDS: Lactobacillus Rhamnosus GG (Probiotic) Cap PO SCH ×2 (09:02→21:04)
[2017-02-23] MEDS: Enoxaparin 40 MG/0.4 ML Syringe SUBCUT SCH (09:02)
[2017-02-23] MEDS: Magnesium Oxide 400 MG Tab PO SCH ×2 (09:03→21:06)
[2017-02-23] MEDS: Lisinopril 20 MG Tab PO SCH (09:04)
[2017-02-23] MEDS: Gabapentin 300 MG Cap PO SCH ×2 (09:04→21:06)
[2017-02-23] MEDS: Doxycycline 100 MG Cap PO SCH ×2 (09:05→21:07)
[2017-02-23] MEDS: Insulin Aspart 100 Units/ML 3 ML Pen SUBCUT SCH ×7 (09:07→21:15)
[2017-02-23] MEDS: Insulin Detemir 100 Units/ML 3 ML Pen SUBCUT SCH ×2 (09:10→21:08)
[2017-02-23] MEDS: Pantoprazole 40 MG Tab.CR PO SCH (11:38)
--- NOTE | 2017-02-23 11:48 | PCM.PN ---
- General Info Date of Service: 02/23/17 Functional Status: Reports: Tolerating Diet, Urinating - Review of Systems General: Denies: Fever, Chills Pulmonary: Reports: Shortness of Breath, Cough. Denies: Pleuritic Chest Pain, Sputum, Hemoptysis, Wheezing Cardiovascular: Reports: Dyspnea on Exertion. Denies: Chest Pain, Palpitations , Orthopnea, PND, Edema Gastrointestinal: Reports: No Symptoms Systems Review Comment:: Dipti is a 61-year-old woman who was admitted last night because of increased shortness of breath, she has a known and long-standing history of oxygen- dependent COPD secondary to underlying rheumatoid arthritis. She has been stable since admission with good oxygen saturation, respiratory rate within desired range and otherwise stable vital signs. There has been no significant temperature elevation, white blood cell count was normal on admission, mildly elevated this morning likely secondary to glucocorticoid therapy. She has no significant pulmonary edema and no evidence of infiltrate or peripheral edema. - Patient Data Vitals - Most Recent: Last Vital Signs Temp 97.4 F 02/23/17 07:26 Pulse 88 02/23/17 10:48 Resp 18 02/23/17 07:26 BP 117/91 H 02/23/17 09:04 Pulse Ox 98 02/23/17 07:57 Weight - Most Recent: 301 lb 9.6 oz I&O - Last 24 Hours: Intake & Output 02/22/17 02/23/17 02/23/17 22:59 06:59 14:59 Intake Total 410 290 Output Total 2900 400 Balance -2490 -110 Lab Results Last 24 Hours: Laboratory Results - last 24 hr 02/23/17 02/23/17 Range/Units 05:57 05:57 WBC 11.7 H (4.5-11.0) K/uL RBC 4.74 (3.30-5.50) M/uL Hgb 13.3 (12.0-15.0) g/dL Hct 42.6 (36.0-48.0) % MCV 90 (80-98) fL MCH 28 (27-31) pg MCHC 31 L (32-36) % Plt Count 288 (150-400) K/uL Neut % (Auto) 92 H (36-66) % Lymph % (Auto) 5 L (24-44) % [place] % (Auto) 2 (2-6) % Eos % (Auto) 0 L (2-4) % Baso % (Auto) 0 (0-1) % Sodium 140 (140-148) mmol/L Potassium 4.9 (3.6-5.2) mmol/L Chloride 101 (100-108) mmol/L Carbon Dioxide 32 (21-32) mmol/L Anion Gap 7.1 (5.0-14.0) mmol/L BUN 20 H (7-18) mg/dL Creatinine 0.9 (0.6-1.0) mg/dL Est Cr Clr Drug Dosing 59.89 mL/min Estimated GFR (MDRD) > 60 (>60) Glucose 356 H (74-106) mg/dL Calcium 8.6 (8.5-10.1) mg/dL Med Orders - Current: Current Medications Acetaminophen (Tylenol) 650 mg PO Q4H PRN PRN Reason: Pain (Mild 1-3)/fever Last Admin: 02/23/17 05:50 Dose: 650 mg Albuterol (Proventil Neb Soln) 2.5 mg NEB Q4H PRN PRN Reason: Shortness Of Breath/wheezing Albuterol/Ipratropium (Duoneb 3.0-0.5 Mg/3 Ml) 3 ml NEB QIDRT [facility] Last Admin: 02/23/17 10:47 Dose: 3 ml Alprazolam (Xanax) 0.25 mg PO TID PRN PRN Reason: Anxiety Last Admin: 02/23/17 02:52 Dose: 0.25 mg Azathioprine (Imuran) 150 mg PO DAILY [facility] Last Admin: 02/23/17 09:03 Dose: 150 mg Bisacodyl (Dulcolax) 5 mg PO DAILY PRN PRN Reason: Constipation Bumetanide (Bumex) 2 mg PO DAILY@1400 [facility] Bumetanide (Bumex) 3 mg PO DAILY@0800 [facility] Last Admin: 02/23/17 08:58 Dose: 3 mg Clotrimazole (Mycelex) 10 mg PO 5XDAY [facility] Last Admin: 02/23/17 09:05 Dose: 10 mg Cyclobenzaprine HCl (Flexeril) 10 mg PO TID PRN PRN Reason: Pain Docusate Sodium (Colace) 100 mg PO BID PRN PRN Reason: Constipation Doxycycline Hyclate (Vibramycin) 100 mg PO BID [facility] Last Admin: 02/23/17 09:05 Dose: 100 mg Enoxaparin Sodium (Lovenox) 40 mg SUBCUT DAILY [facility] Last Admin: 02/23/17 09:02 Dose: 40 mg Escitalopram Oxalate 10 mg/ (Escitalopram Oxalate 20 mg) 30 mg PO BEDTIME [facility] Folic Acid (Folic Acid) 1 mg PO DAILY [facility] Last Admin: 02/23/17 09:00 Dose: 1 mg Gabapentin (Neurontin) 300 mg PO BID [facility] Last Admin: 02/23/17 09:04 Dose: 300 mg Heparin Sodium (Porcine) (Heparin Lock Flush 100 Units/Ml) 500 units FLUSH ASDIRECTED PRN PRN Reason: IV Use Last Admin: 02/23/17 05:58 Dose: 500 units Insulin Aspart (Novolog) 0 unit SUBCUT QIDACANDBED [facility] PRN Reason: Protocol Last Admin: 02/23/17 11:37 Dose: 15 unit Insulin Aspart (Novolog) 12 unit SUBCUT TIDMEALS [facility] Last Admin: 02/23/17 11:36 Dose: 12 unit Insulin Detemir (Levemir) 40 unit SUBCUT BID [facility] Last Admin: 02/23/17 09:10 Dose: 40 unit Isosorbide Mononitrate (Imdur) 30 mg PO DAILY [facility] Last Admin: 02/23/17 09:00 Dose: 30 mg Lactobacillus Rhamnosus (Culturelle) 1 cap PO BID [facility] Last Admin: 02/23/17 09:02 Dose: 1 cap Lisinopril (Prinivil) 20 mg PO DAILY [facility] Last Admin: 02/23/17 09:04 Dose: 20 mg Magnesium Oxide (Magnesium Oxide) 400 mg PO BID [facility] Last Admin: 02/23/17 09:03 Dose: 400 mg Metoprolol Succinate (Toprol Xl) 25 mg PO BEDTIME [facility] Mometasone Furoate/Formoterol Fumar (Dulera 200-5 Mcg) 0 puff IH BIDRT [facility] Last Admin: 02/23/17 08:53 Dose: 2 puff Nitroglycerin (Nitrostat) 0.4 mg SL Q5M PRN PRN Reason: Chest Pain Stop: 02/23/17 21:40 Last Admin: 02/22/17 22:22 Dose: 0.4 mg Ondansetron HCl (Zofran Odt) 4 mg PO Q6H PRN PRN Reason: Nausea able to take PO Oxycodone HCl (Oxycodone) 10 mg PO Q4H PRN PRN Reason: Pain Pantoprazole Sodium (Protonix) 40 mg PO ACBREAKFAST [facility] Last Admin: 02/23/17 11:38 Dose: 40 mg Potassium Chloride (Klor-Con M20) 20 meq PO BIDMEALS [facility] Last Admin: 02/23/17 08:59 Dose: 20 meq Prednisone (Prednisone) 40 mg PO WITHBREAKFAST [facility] Sodium Chloride (Saline Flush) 10 ml FLUSH ASDIRECTED PRN PRN Reason: Keep Vein Open Spironolactone (Aldactone) 25 mg PO DAILY [facility] Last Admin: 02/23/17 09:00 Dose: 25 mg Trazodone HCl (Trazodone) 50 mg PO BEDTIME [facility] Verapamil HCl (Calan Sr) 180 mg PO BIDAC [facility] Last Admin: 02/23/17 08:57 Dose: 180 mg Zolpidem Tartrate (Ambien) 5 mg PO BEDTIME PRN PRN Reason: Sleep Discontinued Medications Alprazolam (Xanax) 0.25 mg PO ASDIRECTED PRN PRN Reason: Anxiety Bumetanide (Bumex) 5 mg IVPUSH ONETIME ONE Stop: 02/22/17 21:51 Last Admin: 02/22/17 22:23 Dose: 5 mg Clotrimazole (Mycelex) 10 mg PO ASDIRECTED [facility] Ceftazidime 1 gm/ Sodium (Chloride) 50 mls @ 100 mls/hr IV Q8H [facility] Last Admin: 02/23/17 00:39 Dose: 100 mls/hr Ceftazidime 1 gm/ Sodium (Chloride) 50 mls @ 100 mls/hr IV Q8H [facility] Last Admin: 02/23/17 09:07 Dose: 100 mls/hr Lorazepam (Ativan) 1 mg IV Q6H PRN PRN Reason: Nausea/Vomiting Methylprednisolone Sodium Succinate (Solu-Medrol) 125 mg IV ONETIME ONE Stop: 02/23/17 00:15 Last Admin: 02/23/17 00:41 Dose: 125 mg Methylprednisolone Sodium Succinate (Solu-Medrol) 62.5 mg IV Q6H [facility] Last Admin: 02/23/17 05:51 Dose: 62.5 mg Methylprednisolone Sodium Succinate (Solu-Medrol) Confirm Administered Dose 40 mg .ROUTE .STK-MED ONE Stop: 02/23/17 05:58 Last Admin: 02/23/17 06:41 Dose: Not Given Methylprednisolone Sodium Succinate (Solu-Medrol) 62.5 mg IV Q6H [facility] Last Admin: 02/23/17 11:39 Dose: 62.5 mg Morphine Sulfate (Morphine) 2 mg IVPUSH Q2H PRN PRN Reason: Pain (severe 7-10) Last Admin: 02/23/17 10:00 Dose: 2 mg - Exam General: Alert, Oriented, Cooperative, No Acute Distress Lungs: Clear to Auscultation, Normal Respiratory Effort Cardiovascular: Regular Rate, Regular Rhythm, No Murmurs GI/Abdominal Exam: Normal Bowel Sounds, Soft, Non-Tender, No Organomegaly, No Distention Extremities: Non-Tender, No Pedal Edema Skin: Warm, Dry, Intact - Problem List Review Problem List Initiated/Reviewed/Updated: Yes - My Orders Last 24 Hours: My Active Orders 02/23/17 11:43 oxyCODONE 10 mg PO Q4H PRN 02/24/17 09:00 predniSONE 40 mg PO WITHBREAKFAST - Plan Plan:: ASSESSMENT AND PLAN CONGESTIVE HEART FAILURE WITH PRESERVED LEFT VENTRICULAR FUNCTION - seems to be fairly well compensated at the present time with no evidence of significant pulmonary edema or peripheral edema. -Continue usual dose of oral Bumex -Daily weights -Strict 2 g sodium diet -Accurate I.'s and O.'s -Supplemental oxygen -Continue home medications COPD -increase in symptoms although saturation and respiratory rate have been stable. She does report cough which has been productive, possible underlying bronchitis viral versus bacterial. Chest x-ray shows no evidence of infiltrate. White blood cell count was normal on admission, mildly elevated this morning likely secondary to glucocorticoid therapy. -Continue doxycycline 100 mg by mouth twice a day -Discontinue ceftazidime -Nebulizer therapy as needed -Discontinue IV Solu-Medrol -Prednisone 40 mg by mouth daily DIABTETS TYPE 2 -Levemir 40 units subcut bid -Novolog 12 units with meals -Sliding scale coverage; high dose -Continue metformin 850 mg by mouth twice a day CHRONIC PAIN - stable -Discontinue IV morphine -Continue outpatient medical therapy with oxycodone MAINTENANCE ISSUES -Nutrition: diabetic diet -Dougherty catheter placed for strict I and 0 -DVT: scd -GI; Protonix 40mg daily DISPOSITION; home with PRIMARY CARE PROVIDER-Dr. Gonsalez Hospitalist: Dr. Hemphill
[2017-02-23] MEDS ORDERED: methylPREDNISolone Sodium Succinate 125 MG/2 ML SDV IV SCH (12:00)
[2017-02-23] MEDS: oxyCODONE 5 MG Tab PO PRN ×2 (13:58→21:03)
[2017-02-23] MEDS: Ondansetron 4 MG Tab.DIS PO PRN ×2 (15:15→22:28)
--- NOTE | 2017-02-23 18:30 | PCM.SN ---
- Free Text/Narrative Note: consult from [address] [place] [address]; no chest pain or shortness of breath o; vital signs stable; [id number] b/p 112/76 o2 sat 93% a; COPD stable p; stop Telemetry and continuous pulse ox, continue vital signs every 4 hours.
[2017-02-23] MEDS ORDERED: Escitalopram 20 MG Tab PO SCH (21:00)
[2017-02-23] MEDS: traZODone 50 MG Tab PO SCH (21:05)
[2017-02-23] MEDS: ESCITALOPRAM PO SCH ×2 (21:06)
[2017-02-23] MEDS ORDERED: Insulin Aspart 100 Units/ML 3 ML Pen SUBCUT ONE (21:06)
[2017-02-23] MEDS: Metoprolol Succinate 25 MG Tab.ER PO SCH (21:07)
[2017-02-24] MEDS: ALPRAZolam 0.25 MG Tab PO PRN ×2 (00:09→21:55)
[2017-02-24] MEDS: Clotrimazole 10 MG Troche PO SCH ×5 (05:00→21:50)
[2017-02-24] MEDS: Verapamil 180 MG Tab.ER PO SCH ×2 (07:19→15:58)
[2017-02-24] MEDS: Pantoprazole 40 MG Tab.CR PO SCH (07:19)
[2017-02-24] MEDS: Albuterol/Ipratropium 3.0-0.5 MG/3 ML Neb Soln NEB SCH ×4 (07:23→20:20)
[2017-02-24] MEDS: Formoterol/Mometasone 200-5 MCG 8.8 GM Inhaler IH SCH ×2 (07:24→20:20)
[2017-02-24] MEDS: Bumetanide 1 MG Tab PO SCH ×2 (07:53→14:31)
[2017-02-24] MEDS: Potassium Chloride 20 MEQ Tab.ER PO SCH ×2 (07:54→17:11)
[2017-02-24] MEDS: Insulin Aspart 100 Units/ML 3 ML Pen SUBCUT SCH ×7 (07:57→21:49)
[2017-02-24] MEDS: Folic Acid 1 MG Tab PO SCH (08:59)
[2017-02-24] MEDS: Lisinopril 20 MG Tab PO SCH (08:59)
[2017-02-24] MEDS: Doxycycline 100 MG Cap PO SCH ×2 (09:00→20:18)
[2017-02-24] MEDS: Magnesium Oxide 400 MG Tab PO SCH ×2 (09:00→20:18)
[2017-02-24] MEDS: Spironolactone 25 MG Tab PO SCH (09:00)
[2017-02-24] MEDS: Gabapentin 300 MG Cap PO SCH ×2 (09:01→20:19)
[2017-02-24] MEDS: predniSONE 20 MG Tab PO SCH (09:01)
[2017-02-24] MEDS: Lactobacillus Rhamnosus GG (Probiotic) Cap PO SCH ×2 (09:01→20:19)
[2017-02-24] MEDS: Isosorbide Mononitrate 30 MG Tab.ER PO SCH (09:01)
[2017-02-24] MEDS: Enoxaparin 40 MG/0.4 ML Syringe SUBCUT SCH (09:02)
[2017-02-24] MEDS: Insulin Detemir 100 Units/ML 3 ML Pen SUBCUT SCH ×2 (09:03→21:48)
--- NOTE | 2017-02-24 11:08 | PCM.PN ---
- General Info Date of Service: 02/24/17 Functional Status: Reports: Pain Controlled, Tolerating Diet, Ambulating - Review of Systems General: Reports: Weakness Pulmonary: Reports: Shortness of Breath Systems Review Comment:: No acute events overnight. She feels weak and short of breath but supplemental oxygen requirement has been stable and at baseline. Excellent diuresis the past 2 days. She has not had any fevers. Blood pressures have been stable. Blood sugars moderately elevated. Tolerated transition to oral medications so far. She is hopeful she will feel well enough to go home tomorrow. - Patient Data Vitals - Most Recent: Last Vital Signs Temp 35.9 C 02/24/17 08:40 Pulse 79 02/24/17 10:59 Resp 16 02/24/17 08:40 BP 142/71 H 02/24/17 09:01 Pulse Ox 94 L 02/24/17 10:59 Weight - Most Recent: 136.032 kg I&O - Last 24 Hours: Intake & Output 02/23/17 02/24/17 02/24/17 22:59 06:59 14:59 Intake Total 980 240 Output Total 500 1000 200 Balance -500 -20 40 Med Orders - Current: Current Medications Acetaminophen (Tylenol) 650 mg PO Q4H PRN PRN Reason: Pain (Mild 1-3)/fever Last Admin: 02/23/17 13:57 Dose: 650 mg Albuterol (Proventil Neb Soln) 2.5 mg NEB Q4H PRN PRN Reason: Shortness Of Breath/wheezing Albuterol/Ipratropium (Duoneb 3.0-0.5 Mg/3 Ml) 3 ml NEB QIDRT [facility] Last Admin: 02/24/17 10:59 Dose: 3 ml Alprazolam (Xanax) 0.25 mg PO TID PRN PRN Reason: Anxiety Last Admin: 02/24/17 00:09 Dose: 0.25 mg Azathioprine (Imuran) 150 mg PO DAILY [facility] Last Admin: 02/24/17 08:58 Dose: 150 mg Bisacodyl (Dulcolax) 5 mg PO DAILY PRN PRN Reason: Constipation Bumetanide (Bumex) 2 mg PO DAILY@1400 [facility] Last Admin: 02/23/17 13:57 Dose: 2 mg Bumetanide (Bumex) 3 mg PO DAILY@0800 [facility] Last Admin: 02/24/17 07:53 Dose: 3 mg Clotrimazole (Mycelex) 10 mg PO 5XDAY [facility] Last Admin: 02/24/17 10:04 Dose: Not Given Cyclobenzaprine HCl (Flexeril) 10 mg PO TID PRN PRN Reason: Pain Docusate Sodium (Colace) 100 mg PO BID PRN PRN Reason: Constipation Doxycycline Hyclate (Vibramycin) 100 mg PO BID [facility] Last Admin: 02/24/17 09:00 Dose: 100 mg Enoxaparin Sodium (Lovenox) 40 mg SUBCUT DAILY [facility] Last Admin: 02/24/17 09:02 Dose: 40 mg Escitalopram Oxalate 10 mg/ (Escitalopram Oxalate 20 mg) 30 mg PO BEDTIME [facility] Last Admin: 02/23/17 21:06 Dose: 30 mg Folic Acid (Folic Acid) 1 mg PO DAILY [facility] Last Admin: 02/24/17 08:59 Dose: 1 mg Gabapentin (Neurontin) 300 mg PO BID [facility] Last Admin: 02/24/17 09:01 Dose: 300 mg Heparin Sodium (Porcine) (Heparin Lock Flush 100 Units/Ml) 500 units FLUSH ASDIRECTED PRN PRN Reason: IV Use Last Admin: 02/23/17 05:58 Dose: 500 units Insulin Aspart (Novolog) 0 unit SUBCUT QIDACANDBED [facility] PRN Reason: Protocol Last Admin: 02/24/17 07:58 Dose: 15 unit Insulin Aspart (Novolog) 12 unit SUBCUT TIDMEALS [facility] Last Admin: 02/24/17 07:57 Dose: 12 unit Insulin Detemir (Levemir) 40 unit SUBCUT BID [facility] Last Admin: 02/24/17 09:03 Dose: 40 unit Isosorbide Mononitrate (Imdur) 30 mg PO DAILY [facility] Last Admin: 02/24/17 09:01 Dose: 30 mg Lactobacillus Rhamnosus (Culturelle) 1 cap PO BID [facility] Last Admin: 02/24/17 09:01 Dose: 1 cap Lisinopril (Prinivil) 20 mg PO DAILY [facility] Last Admin: 02/24/17 08:59 Dose: 20 mg Magnesium Oxide (Magnesium Oxide) 400 mg PO BID [facility] Last Admin: 02/24/17 09:00 Dose: 400 mg Metformin HCl (Glucophage) 850 mg PO BIDMEALS [facility] Metoprolol Succinate (Toprol Xl) 25 mg PO BEDTIME [facility] Last Admin: 02/23/17 21:07 Dose: 25 mg Mometasone Furoate/Formoterol Fumar (Dulera 200-5 Mcg) 0 puff IH BIDRT [facility] Last Admin: 02/24/17 07:24 Dose: 2 puff Ondansetron HCl (Zofran Odt) 4 mg PO Q6H PRN PRN Reason: Nausea able to take PO Last Admin: 02/23/17 22:28 Dose: 4 mg Oxycodone HCl (Oxycodone) 10 mg PO Q4H PRN PRN Reason: Pain Last Admin: 02/23/17 21:03 Dose: 10 mg Pantoprazole Sodium (Protonix) 40 mg PO ACBREAKFAST [facility] Last Admin: 02/24/17 07:19 Dose: 40 mg Potassium Chloride (Klor-Con M20) 20 meq PO BIDMEALS [facility] Last Admin: 02/24/17 07:54 Dose: 20 meq Prednisone (Prednisone) 40 mg PO WITHBREAKFAST [facility] Last Admin: 02/24/17 09:01 Dose: 40 mg Sodium Chloride (Saline Flush) 10 ml FLUSH ASDIRECTED PRN PRN Reason: Keep Vein Open Spironolactone (Aldactone) 25 mg PO DAILY [facility] Last Admin: 02/24/17 09:00 Dose: 25 mg Trazodone HCl (Trazodone) 50 mg PO BEDTIME [facility] Last Admin: 02/23/17 21:05 Dose: 50 mg Verapamil HCl (Calan Sr) 180 mg PO BIDAC [facility] Last Admin: 02/24/17 07:19 Dose: 180 mg Zolpidem Tartrate (Ambien) 5 mg PO BEDTIME PRN PRN Reason: Sleep Discontinued Medications Alprazolam (Xanax) 0.25 mg PO ASDIRECTED PRN PRN Reason: Anxiety Bumetanide (Bumex) 5 mg IVPUSH ONETIME ONE Stop: 02/22/17 21:51 Last Admin: 02/22/17 22:23 Dose: 5 mg Clotrimazole (Mycelex) 10 mg PO ASDIRECTED [facility] Ceftazidime 1 gm/ Sodium (Chloride) 50 mls @ 100 mls/hr IV Q8H [facility] Last Admin: 02/23/17 00:39 Dose: 100 mls/hr Ceftazidime 1 gm/ Sodium (Chloride) 50 mls @ 100 mls/hr IV Q8H [facility] Last Admin: 02/23/17 09:07 Dose: 100 mls/hr Insulin Aspart (Novolog) 18 unit SUBCUT ONETIME ONE Stop: 02/23/17 21:07 Last Admin: 02/23/17 21:14 Dose: 18 units Lorazepam (Ativan) 1 mg IV Q6H PRN PRN Reason: Nausea/Vomiting Methylprednisolone Sodium Succinate (Solu-Medrol) 125 mg IV ONETIME ONE Stop: 02/23/17 00:15 Last Admin: 02/23/17 00:41 Dose: 125 mg Methylprednisolone Sodium Succinate (Solu-Medrol) 62.5 mg IV Q6H [facility] Last Admin: 02/23/17 05:51 Dose: 62.5 mg Methylprednisolone Sodium Succinate (Solu-Medrol) Confirm Administered Dose 40 mg .ROUTE .STK-MED ONE Stop: 02/23/17 05:58 Last Admin: 02/23/17 06:41 Dose: Not Given Methylprednisolone Sodium Succinate (Solu-Medrol) 62.5 mg IV Q6H [facility] Last Admin: 02/23/17 11:39 Dose: 62.5 mg Morphine Sulfate (Morphine) 2 mg IVPUSH Q2H PRN PRN Reason: Pain (severe 7-10) Last Admin: 02/23/17 10:00 Dose: 2 mg Nitroglycerin (Nitrostat) 0.4 mg SL Q5M PRN PRN Reason: Chest Pain Stop: 02/23/17 21:40 Last Admin: 02/22/17 22:22 Dose: 0.4 mg - Exam Quality Assessment: Supplemental Oxygen General: Alert, Oriented, Cooperative, No Acute Distress Neck: Supple Lungs: Clear to Auscultation, Normal Respiratory Effort. No: Wheezing Cardiovascular: Regular Rate, Regular Rhythm GI/Abdominal Exam: Soft, No Distention Extremities: No Pedal Edema. No: Increased Warmth Skin: Warm, Dry Psy/Mental Status: Alert, Normal Affect - Problem List Review Problem List Initiated/Reviewed/Updated: Yes - My Orders Last 24 Hours: My Active Orders 02/24/17 10:45 metFORMIN [Glucophage] 850 mg PO BIDMEALS - Plan Plan:: ASSESSMENT AND PLAN CONGESTIVE HEART FAILURE WITH PRESERVED LEFT VENTRICULAR FUNCTION - seems to be fairly well compensated at the present time with no evidence of significant pulmonary edema or peripheral edema. -Continue usual dose of oral Bumex -Daily weights -Strict 2 g sodium diet -Accurate I.'s and O.'s -Supplemental oxygen -Continue home medications COPD -increase in symptoms although saturation and respiratory rate have been stable. She does report cough which has been productive, possible underlying bronchitis viral versus bacterial. Chest x-ray shows no evidence of infiltrate. White blood cell count was normal on admission, mildly elevated this morning likely secondary to glucocorticoid therapy. -Continue doxycycline 100 mg by mouth twice a day -Nebulizer therapy as needed -Prednisone 40 mg by mouth daily DIABTETS TYPE 2 - sugars moderately elevated like normal when she is on higher dose steroids despite increases in her long-acting insulin . -Levemir 40 units subcut bid -Novolog 12 units with meals -Sliding scale coverage; high dose -Restart metformin 850 mg by mouth twice a day CHRONIC PAIN - stable -Discontinue IV morphine -Continue outpatient medical therapy with oxycodone MAINTENANCE ISSUES -Nutrition: diabetic diet -Dougherty catheter - removed -DVT: scd -GI; Protonix 40mg daily DISPOSITION; home with , likely tomorrow Saran Bolivar M.D.
--- NOTE | 2017-02-24 11:15 | CR ---
Chest 1V Frontal INDICATION: sob COMPARISON: 01/19/2017 FINDINGS: Single portable chest. Heart size normal. No infiltrates or pleural effusions. Left subcl renny Port-A-Cath remains in place. IMPRESSION: Nothing acute.
[2017-02-24] MEDS ORDERED: Morphine 15 MG Tab PO PRN (11:41)
[2017-02-24] MEDS: traZODone 50 MG Tab PO SCH (20:19)
[2017-02-24] MEDS: ESCITALOPRAM PO SCH ×2 (20:19)
[2017-02-24] MEDS: Metoprolol Succinate 25 MG Tab.ER PO SCH (20:22)
[2017-02-25] MEDS: Clotrimazole 10 MG Troche PO SCH ×2 (05:25→09:44)
[2017-02-25] MEDS: Formoterol/Mometasone 200-5 MCG 8.8 GM Inhaler IH SCH (07:28)
[2017-02-25] MEDS: Albuterol/Ipratropium 3.0-0.5 MG/3 ML Neb Soln NEB SCH ×2 (07:28→10:49)
[2017-02-25] MEDS: Bumetanide 1 MG Tab PO SCH (07:57)
[2017-02-25] MEDS: Pantoprazole 40 MG Tab.CR PO SCH (07:57)
[2017-02-25] MEDS: Potassium Chloride 20 MEQ Tab.ER PO SCH (07:58)
[2017-02-25] MEDS: Verapamil 180 MG Tab.ER PO SCH (07:58)
[2017-02-25] MEDS: predniSONE 20 MG Tab PO SCH (07:59)
[2017-02-25] MEDS: Insulin Aspart 100 Units/ML 3 ML Pen SUBCUT SCH ×4 (08:02→11:29)
[2017-02-25] MEDS: Lactobacillus Rhamnosus GG (Probiotic) Cap PO SCH (08:06)
[2017-02-25] MEDS: Spironolactone 25 MG Tab PO SCH (08:06)
[2017-02-25] MEDS: Isosorbide Mononitrate 30 MG Tab.ER PO SCH (08:06)
[2017-02-25] MEDS: Folic Acid 1 MG Tab PO SCH (08:06)
[2017-02-25] MEDS: Gabapentin 300 MG Cap PO SCH (08:08)
[2017-02-25] MEDS: Magnesium Oxide 400 MG Tab PO SCH (08:08)
[2017-02-25] MEDS: Enoxaparin 40 MG/0.4 ML Syringe SUBCUT SCH (08:08)
[2017-02-25] MEDS: Lisinopril 20 MG Tab PO SCH (08:08)
[2017-02-25] MEDS: Doxycycline 100 MG Cap PO SCH (08:09)
[2017-02-25] MEDS: Insulin Detemir 100 Units/ML 3 ML Pen SUBCUT SCH (08:10)
[2017-02-25] MEDS: Acetaminophen 325 MG Tab PO PRN (10:06)
--- NOTE | 2017-02-25 10:24 | PCM.DCSUM1 ---
Discharge Summary - Hospital Course Brief History: 61-year-old female with history of heart failure with preserved ejection fraction, COPD, suboptimally controlled diabetes and rheumatoid arthritis who presented with weight gain and progressive shortness of breath. She was admitted for management of a heart failure and COPD exacerbation. - Discharge Data Discharge Date: 02/25/17 Discharge Disposition: Home, Self-Care 01 Condition: Good - Discharge Diagnosis/Problem(s) (1) Diastolic congestive heart failure SNOMED Code(s): 733670634, 844664500 ICD Code: I50.30 - UNSPECIFIED DIASTOLIC (CONGESTIVE) HEART FAILURE Status : Acute Current Visit: No Qualifiers: Congestive heart failure chronicity: acute on chronic Qualified Code(s): I50.33 - Acute on chronic diastolic (congestive) heart failure (2) COPD exacerbation SNOMED Code(s): 667775447, 583985105 ICD Code: J44.1 - CHRONIC OBSTRUCTIVE PULMONARY DISEASE W (ACUTE) EXACERBATION Status: Acute Priority: High Current Visit: Yes (3) (HFpEF) heart failure with preserved ejection fraction SNOMED Code(s): 24587310 ICD Code: I50.30 - UNSPECIFIED DIASTOLIC (CONGESTIVE) HEART FAILURE Status : Chronic Current Visit: No (4) Diabetes mellitus type 2 SNOMED Code(s): 59443966 ICD Code: E11.9 - TYPE 2 DIABETES MELLITUS WITHOUT COMPLICATIONS Status: Chronic Priority: High Current Visit: Yes (5) Morbid obesity with BMI of 45.0-49.9, adult SNOMED Code(s): 098625219 ICD Code: E66.01 - MORBID (SEVERE) OBESITY DUE TO EXCESS CALORIES; Z68.42 - BODY MASS INDEX (BMI) 45.0-49.9, ADULT Status: Acute Current Visit: Yes - Patient Summary/Data Hospital Course: Dipti presented to the emergency room with a 14 pound weight gain and progressive shortness of breath. Workup was suggestive of a mild congestive heart failure exacerbation leading to an exacerbation of her COPD. She was given aggressive diuretic treatment and admitted for further management. Over the next 2 days she had an excellent diuresis resulting in the loss of most of her weight but had been accumulated prior to admission. Respiratory status improved quickly. Laboratory studies all remained stable and essentially normal. We did see a spike in her blood sugars with the addition of increased steroids and this did improve with increased doses of insulin beyond her baseline. It was unclear if there is a component of infection or not she was started on antibiotics and transition to oral doxycycline fairly quickly during hospital stay. We are able to transition from IV to oral medications including antibiotics and steroids fairly rapidly with quick clinical improvement. She has tolerated the transition well. I believe she is safe for outpatient management at this time. She will continue on her usual home diuretic treatment. I encouraged her to weigh herself more frequently that she had only been doing this once a week or so. She will be on an increased dose of prednisone as outlined in the medications for the next 7 days before resuming her 20 mg once daily. She'll be on antibiotics for 7 more doses. She will follow -up next week. - Patient Instructions Diet: Diabetic Diet Activity: As Tolerated Showering/Bathing: May Shower Notify Provider of: Fever, Increased Pain, Nausea and/or Vomiting Other/Special Instructions: 1. You were in the hospital for management of an exacerbation of COPD likely caused by an exacerbation of her congestive heart failure. We cannot rule out bronchitis at this time. I recommend that you make the following medication adjustments: -take prednisone 40 mg daily for two days starting tomorrow then 30 mg daily for 5 days then 20 mg daily thereafter. -take doxycycline 100 mg twice daily for 7 doses. Your first dose is due tonight. 2. Continue your usual home medications as previously prescribed. You should weigh yourself daily to help look for evidence that fluid is accumulating and an exacerbation of the heart failure is looming. If you gain more than 2 pounds in a day or 4 pounds over 2 days you should contact your primary care provider immediately. 3. Please seek medical attention if you develop fever greater than 101, have sudden onset of shortness of breath, severe chest pain or persistent vomiting or diarrhea. - Discharge Plan Prescriptions/Med Rec: Doxycycline Calcium [IMW: Doxycycline] 100 mg PO BID #7 capsule Morphine 15 mg PO Q4H PRN #10 tablet PRN Reason: Pain Home Medications: Home Meds Albuterol [Ventolin HFA] 2 puff INH ASDIRECTED PRN 03/01/13 [History] Escitalopram [Lexapro] 30 mg PO BEDTIME 03/01/13 [History] Ipratropium/Albuterol Sulfate [Duoneb 0.5 MG-3 MG/3 ML] 3 ml INH QID 03/01/13 [ History] Metoprolol Succinate [Toprol XL] 25 mg PO BEDTIME 03/01/13 [History] Verapamil HCl [Verelan] 180 mg PO BIDAC 03/01/13 [History] Aspirin 81 mg PO DAILY 08/30/13 [History] Simvastatin [Zocor] 10 mg PO BEDTIME 08/30/13 [History] Magnesium Oxide 400 mg PO BID 09/01/13 [History] Lactobacillus Acidophilus [Probiotic] 1 cap PO BID 04/05/14 [History] Cyclobenzaprine [Flexeril] 10 mg PO TID PRN 09/27/14 [History] Folic Acid 1 mg PO DAILY 09/27/14 [History] metFORMIN [Glucophage] 850 mg PO BID 09/27/14 [History] Gabapentin [Neurontin] 300 mg PO BID 03/28/15 [History] Lisinopril 20 mg PO DAILY 03/28/15 [History] Oxybutynin [Oxybutynin ER] 10 mg PO DAILY 03/28/15 [History] Promethazine [Phenergan] 25 mg PO Q8H PRN 03/28/15 [History] traZODone 50 mg PO BEDTIME 03/28/15 [History] Potassium Chloride [Klor-Con M20] 20 meq PO BID #60 tab.er 07/29/15 [Rx] Cyanocobalamin (Vitamin B12) [Vitamin B12] 1,000 mcg IM Q30D 09/26/15 [History] Ergocalciferol (Vitamin D2) [Vitamin D2] 50,000 unit PO WEEKLY 09/26/15 [History ] Ferrous Sulfate 325 mg PO DAILY 09/26/15 [History] Fluticasone/Salmeterol [Advair Diskus 500-50] 1 puff INH BID 12/05/15 [History] azaTHIOprine [Azathioprine] 150 mg PO DAILY 12/05/15 [History] Isosorbide Mononitrate [Isosorbide Mononitrate ER] 30 mg PO DAILY 04/12/16 [ History] Insulin Aspart [NovoLOG] 12 unit SUBCUT TIDMEALS 06/05/16 [History] Pantoprazole [ProTONIX] 40 mg PO DAILY 07/13/16 [History] Clotrimazole [Mycelex] 10 mg PO 5XDAY 07/29/16 [History] Insulin Detemir [Levemir Flextouch] 30 units SQ BID #300 ml 08/28/16 [Rx] Prednisone [IJD: predniSONE] 20 mg PO DAILY 10/28/16 [History] Spironolactone [Aldactone] 25 mg PO DAILY #30 tablet 12/27/16 [Rx] Bumetanide [Bumex] 2 mg PO DAILY@1400 #0 tablet 01/23/17 [Rx] Bumetanide [Bumex] 3 mg PO DAILY@0800 tablet 01/23/17 [Rx] ALPRAZolam [Alprazolam] 0.25 mg PO ASDIRECTED PRN 02/22/17 [History] Morphine Sulfate 15 mg SL ASDIRECTED PRN 02/22/17 [History] Doxycycline Calcium [IMW: Doxycycline] 100 mg PO BID #7 capsule 02/25/17 [Rx] Morphine 15 mg PO Q4H PRN #10 tablet 02/25/17 [Rx] Patient Handouts: Doxycycline tablets or capsules, Heart Failure Referrals: Arnulfo Gonsalez MD [Primary Care Provider] - (1 week - follow-up hospital stay for congestive heart failure and COPD exacerbation.) - Discharge Summary/Plan Comment DC Time >30 min.: No (25) - Patient Data Vitals - Most Recent: Last Vital Signs Temp 36.1 C 02/25/17 07:00 Pulse 71 02/25/17 07:29 Resp 20 02/25/17 07:00 BP 118/62 02/25/17 08:08 Pulse Ox 97 02/25/17 07:29 Weight - Most Recent: 136.35 kg I&O - Last 24 hours: Intake & Output 02/24/17 02/25/17 02/25/17 22:59 06:59 14:59 Intake Total 720 500 360 Output Total 2000 800 Balance -1280 -300 360 Med Orders - Current: Current Medications Acetaminophen (Tylenol) 650 mg PO Q4H PRN PRN Reason: Pain (Mild 1-3)/fever Last Admin: 02/25/17 10:06 Dose: 650 mg Albuterol (Proventil Neb Soln) 2.5 mg NEB Q4H PRN PRN Reason: Shortness Of Breath/wheezing Albuterol/Ipratropium (Duoneb 3.0-0.5 Mg/3 Ml) 3 ml NEB QIDRT [facility] Last Admin: 02/25/17 07:28 Dose: 3 ml Alprazolam (Xanax) 0.25 mg PO TID PRN PRN Reason: Anxiety Last Admin: 02/24/17 21:55 Dose: 0.25 mg Azathioprine (Imuran) 150 mg PO DAILY [facility] Last Admin: 02/25/17 08:07 Dose: 150 mg Bisacodyl (Dulcolax) 5 mg PO DAILY PRN PRN Reason: Constipation Bumetanide (Bumex) 2 mg PO DAILY@1400 [facility] Last Admin: 02/24/17 14:31 Dose: 2 mg Bumetanide (Bumex) 3 mg PO DAILY@0800 [facility] Last Admin: 02/25/17 07:57 Dose: 3 mg Clotrimazole (Mycelex) 10 mg PO 5XDAY [facility] Last Admin: 02/25/17 09:44 Dose: 10 mg Cyclobenzaprine HCl (Flexeril) 10 mg PO TID PRN PRN Reason: Pain Docusate Sodium (Colace) 100 mg PO BID PRN PRN Reason: Constipation Doxycycline Hyclate (Vibramycin) 100 mg PO BID [facility] Last Admin: 02/25/17 08:09 Dose: 100 mg Enoxaparin Sodium (Lovenox) 40 mg SUBCUT DAILY [facility] Last Admin: 02/25/17 08:08 Dose: 40 mg Escitalopram Oxalate 10 mg/ (Escitalopram Oxalate 20 mg) 30 mg PO BEDTIME [facility] Last Admin: 02/24/17 20:19 Dose: 30 mg Folic Acid (Folic Acid) 1 mg PO DAILY [facility] Last Admin: 02/25/17 08:06 Dose: 1 mg Gabapentin (Neurontin) 300 mg PO BID [facility] Last Admin: 02/25/17 08:08 Dose: 300 mg Heparin Sodium (Porcine) (Heparin Lock Flush 100 Units/Ml) 500 units FLUSH ASDIRECTED PRN PRN Reason: IV Use Last Admin: 02/23/17 05:58 Dose: 500 units Insulin Aspart (Novolog) 0 unit SUBCUT QIDACANDBED [facility] PRN Reason: Protocol Last Admin: 02/25/17 08:03 Dose: 6 unit Insulin Aspart (Novolog) 12 unit SUBCUT TIDMEALS [facility] Last Admin: 02/25/17 08:02 Dose: 12 unit Insulin Detemir (Levemir) 40 unit SUBCUT BID [facility] Last Admin: 02/25/17 08:10 Dose: 40 unit Isosorbide Mononitrate (Imdur) 30 mg PO DAILY [facility] Last Admin: 02/25/17 08:06 Dose: 30 mg Lactobacillus Rhamnosus (Culturelle) 1 cap PO BID [facility] Last Admin: 02/25/17 08:06 Dose: 1 cap Lisinopril (Prinivil) 20 mg PO DAILY [facility] Last Admin: 02/25/17 08:08 Dose: 20 mg Magnesium Oxide (Magnesium Oxide) 400 mg PO BID [facility] Last Admin: 02/25/17 08:08 Dose: 400 mg Metformin HCl (Glucophage) 850 mg PO BIDMEALS [facility] Last Admin: 02/25/17 07:58 Dose: 850 mg Metoprolol Succinate (Toprol Xl) 25 mg PO BEDTIME [facility] Last Admin: 02/24/17 20:22 Dose: 25 mg Mometasone Furoate/Formoterol Fumar (Dulera 200-5 Mcg) 0 puff IH BIDRT [facility] Last Admin: 02/25/17 07:28 Dose: 2 puff Morphine Sulfate (Morphine) 15 mg PO Q4H PRN PRN Reason: Pain Last Admin: 02/24/17 19:53 Dose: 15 mg Ondansetron HCl (Zofran Odt) 4 mg PO Q6H PRN PRN Reason: Nausea able to take PO Last Admin: 02/23/17 22:28 Dose: 4 mg Pantoprazole Sodium (Protonix) 40 mg PO ACBREAKFAST [facility] Last Admin: 02/25/17 07:57 Dose: 40 mg Potassium Chloride (Klor-Con M20) 20 meq PO BIDMEALS [facility] Last Admin: 02/25/17 07:58 Dose: 20 meq Prednisone (Prednisone) 40 mg PO WITHBREAKFAST [facility] Last Admin: 02/25/17 07:59 Dose: 40 mg Sodium Chloride (Saline Flush) 10 ml FLUSH ASDIRECTED PRN PRN Reason: Keep Vein Open Spironolactone (Aldactone) 25 mg PO DAILY [facility] Last Admin: 02/25/17 08:06 Dose: 25 mg Trazodone HCl (Trazodone) 50 mg PO BEDTIME [facility] Last Admin: 02/24/17 20:19 Dose: 50 mg Verapamil HCl (Calan Sr) 180 mg PO BIDAC [facility] Last Admin: 02/25/17 07:58 Dose: 180 mg Zolpidem Tartrate (Ambien) 5 mg PO BEDTIME PRN PRN Reason: Sleep Discontinued Medications Alprazolam (Xanax) 0.25 mg PO ASDIRECTED PRN PRN Reason: Anxiety Bumetanide (Bumex) 5 mg IVPUSH ONETIME ONE Stop: 02/22/17 21:51 Last Admin: 02/22/17 22:23 Dose: 5 mg Clotrimazole (Mycelex) 10 mg PO ASDIRECTED OSM[facility] Ceftazidime 1 gm/ Sodium (Chloride) 50 mls @ 100 mls/hr IV Q8H [facility] Last Admin: 02/23/17 00:39 Dose: 100 mls/hr Ceftazidime 1 gm/ Sodium (Chloride) 50 mls @ 100 mls/hr IV Q8H [facility] Last Admin: 02/23/17 09:07 Dose: 100 mls/hr Insulin Aspart (Novolog) 18 unit SUBCUT ONETIME ONE Stop: 02/23/17 21:07 Last Admin: 02/23/17 21:14 Dose: 18 units Lorazepam (Ativan) 1 mg IV Q6H PRN PRN Reason: Nausea/Vomiting Methylprednisolone Sodium Succinate (Solu-Medrol) 125 mg IV ONETIME ONE Stop: 02/23/17 00:15 Last Admin: 02/23/17 00:41 Dose: 125 mg Methylprednisolone Sodium Succinate (Solu-Medrol) 62.5 mg IV Q6H [facility] Last Admin: 02/23/17 05:51 Dose: 62.5 mg Methylprednisolone Sodium Succinate (Solu-Medrol) Confirm Administered Dose 40 mg .ROUTE .STK-MED ONE Stop: 02/23/17 05:58 Last Admin: 02/23/17 06:41 Dose: Not Given Methylprednisolone Sodium Succinate (Solu-Medrol) 62.5 mg IV Q6H [facility] Last Admin: 02/23/17 11:39 Dose: 62.5 mg Morphine Sulfate (Morphine) 2 mg IVPUSH Q2H PRN PRN Reason: Pain (severe 7-10) Last Admin: 02/23/17 10:00 Dose: 2 mg Nitroglycerin (Nitrostat) 0.4 mg SL Q5M PRN PRN Reason: Chest Pain Stop: 02/23/17 21:40 Last Admin: 02/22/17 22:22 Dose: 0.4 mg Oxycodone HCl (Oxycodone) 10 mg PO Q4H PRN PRN Reason: Pain Last Admin: 02/23/17 21:03 Dose: 10 mg *Q Meaningful Use (DIS) - VTE *Q VTE Criteria *Q: - Stroke *Q Stroke Criteria *Q: - AMI *Q AMI Criteria *Q:
[2017-02-25 10:47] VITALS: BP 101/66
== END 2017-02-25 12:50 | disposition home or self-care (01) | DRG 194 ==
LOC: JP.ED 20:59 → JP.MS 23:52
PROVIDERS: ADMIT Hospitalist; ATTEND Internal Medicine
DX: I11.0 Hypertensive heart disease with heart failure (principal); I50.33 Acute on chronic diastolic (congestive) heart failure; J44.0 Chronic obstructive pulmonary disease with (acute) lower respiratory infection; J20.9 Acute bronchitis, unspecified; J44.1 Chronic obstructive pulmonary disease with (acute) exacerbation; Z87.891 Personal history of nicotine dependence; Z99.81 Dependence on supplemental oxygen; E11.21 Type 2 diabetes mellitus with diabetic nephropathy; E11.40 Type 2 diabetes mellitus with diabetic neuropathy, unspecified; Z79.4 Long term (current) use of insulin; E53.8 Deficiency of other specified B group vitamins; F41.9 Anxiety disorder, unspecified; F32.9 Major depressive disorder, single episode, unspecified; M06.9 Rheumatoid arthritis, unspecified; M19.90 Unspecified osteoarthritis, unspecified site; M54.9 Dorsalgia, unspecified; G89.29 Other chronic pain; K21.9 Gastro-esophageal reflux disease without esophagitis; Z87.01 Personal history of pneumonia (recurrent); H54.7 Unspecified visual loss; Z96.659 Presence of unspecified artificial knee joint; Z88.1 Allergy status to other antibiotic agents; Z79.82 Long term (current) use of aspirin; Z79.52 Long term (current) use of systemic steroids
CPT/HCPCS: 36415; 71010; 71010-26; 80048; 80053; 82962; 83605; 83880; 84484; 85025; 93005; 94640; 94640-76; 94664; 96374; 96375; 99285-25; A9270-GY; J0713; J1642; J1650; J2270; J2920; J2930; J7050; J7500; J7620; S0171

== ENCOUNTER 2017-03-17 10:44 | Inpatient (IN) | payer BC, MEDICAID ==
[2017-03-17] MEDS ORDERED: Docusate Sodium 100 MG Cap PO PRN (14:00)
[2017-03-17] MEDS ORDERED: Albuterol 0.083% 2.5 MG/3 ML Neb Soln NEB PRN (14:00)
[2017-03-17] MEDS ORDERED: Cyclobenzaprine 10 MG Tab PO PRN (14:00)
[2017-03-17] MEDS ORDERED: Sodium Chloride 0.9% 10 ML Syringe FLUSH PRN (14:00)
[2017-03-17] MEDS ORDERED: Magnesium Hydroxide 400 MG/5 ML Susp 30 ML Cup PO PRN (14:00)
[2017-03-17] MEDS ORDERED: Polyethylene Glycol 3350 Powder 17 GM Packet PO PRN (14:00)
[2017-03-17] MEDS: Morphine 15 MG Tab PO PRN ×2 (14:16→18:41)
[2017-03-17] MEDS ORDERED: Bumetanide 2.5 MG/10 ML MDV IVPUSH ONE (14:30)
[2017-03-17] MEDS: Albuterol/Ipratropium 3.0-0.5 MG/3 ML Neb Soln INH SCH ×2 (14:34→20:20)
[2017-03-17] MEDS: Acetaminophen 325 MG Tab PO PRN (15:14)
[2017-03-17] MEDS: Insulin Aspart 100 Units/ML 3 ML Pen SUBCUT SCH ×4 (15:31→21:10)
[2017-03-17] MEDS: Enoxaparin 40 MG/0.4 ML Syringe SUBCUT SCH (15:35)
[2017-03-17] MEDS ORDERED: VERAPAMIL HCL 180 MG PO SCH (16:30)
[2017-03-17] MEDS ORDERED: Glucose Gel 15 GM in 37.5 GM Tube PO PRN (16:45)
[2017-03-17] MEDS ORDERED: 50% Dextrose in Water 50 ML Syringe IV PRN (16:45)
[2017-03-17] MEDS: Potassium Chloride 20 MEQ Tab.ER PO SCH (17:03)
[2017-03-17] MEDS: Verapamil 180 MG Tab.ER PO SCH (17:04)
--- NOTE | 2017-03-17 17:08 | PCM.HP ---
H&P History of Present Illness - General Date of Service: 03/17/17 Admit Problem/Dx: Admission Diagnosis/Problem Admission Diagnosis/Problem Dyspnea Source of Information: Patient, Family, Old Records, Provider, RN Notes Reviewed History Limitations: Reports: No Limitations - History of Present Illness Initial Comments - Free Text/Narative: Ms. Daniel is a 61-year-old woman who is admitted as a direct admission from the clinic with increased shortness of breath secondary to fluid overload. She has a known and long-standing history of congestive heart failure with preserved left ventricular function. Over the past few days has become progressively more short of breath and has a documented 10 pound weight gain. She has had a cough productive of relatively clear sputum, no significant fever, chills, or sweats. She was seen and evaluated the clinic earlier today by Dr. Issa, chest x- ray showed no acute abnormalities, white blood cell count is within normal range. - Related Data Allergies/Adverse Reactions: Allergies Allergy/AdvReac Type Severity Reaction Status Date / Time cephalexin monohydrate Allergy Unknown flusing Verified 02/22/17 21:07 [From Keflex] levofloxacin [Levofloxacin] Allergy Rash Verified 02/22/17 21:07 amoxicillin [Amoxicillin] AdvReac Vomiting Verified 02/22/17 21:07 amoxicillin trihydrate AdvReac Vomiting Verified 02/22/17 21:07 [From Augmentin] erythromycin base AdvReac Nausea and Verified 02/22/17 21:07 [Erythromycin Base] Vomiting potassium clavulanate AdvReac Vomiting Verified 02/22/17 21:07 [From Augmentin] Home Medications: Home Meds Albuterol [Ventolin HFA] 2 puff INH ASDIRECTED PRN 03/01/13 [History] Escitalopram [Lexapro] 30 mg PO BEDTIME 03/01/13 [History] Ipratropium/Albuterol Sulfate [Duoneb 0.5 MG-3 MG/3 ML] 3 ml INH QID 03/01/13 [ History] Metoprolol Succinate [Toprol XL] 25 mg PO BEDTIME 03/01/13 [History] Verapamil HCl [Verelan] 180 mg PO BIDAC 03/01/13 [History] Aspirin 81 mg PO DAILY 08/30/13 [History] Simvastatin [Zocor] 10 mg PO BEDTIME 08/30/13 [History] Magnesium Oxide 400 mg PO BID 09/01/13 [History] Lactobacillus Acidophilus [Probiotic] 1 cap PO BID 04/05/14 [History] Cyclobenzaprine [Flexeril] 10 mg PO TID PRN 09/27/14 [History] Folic Acid 1 mg PO DAILY 09/27/14 [History] metFORMIN [Glucophage] 850 mg PO BID 09/27/14 [History] Gabapentin [Neurontin] 300 mg PO BID 03/28/15 [History] Lisinopril 20 mg PO DAILY 03/28/15 [History] Oxybutynin [Oxybutynin ER] 10 mg PO DAILY 03/28/15 [History] Promethazine [Phenergan] 25 mg PO Q8H PRN 03/28/15 [History] traZODone 50 mg PO BEDTIME 03/28/15 [History] Potassium Chloride [Klor-Con M20] 20 meq PO BID #60 tab.er 07/29/15 [Rx] Cyanocobalamin (Vitamin B12) [Vitamin B12] 1,000 mcg IM Q30D 09/26/15 [History] Ergocalciferol (Vitamin D2) [Vitamin D2] 50,000 unit PO WEEKLY 09/26/15 [History ] Ferrous Sulfate 325 mg PO DAILY 09/26/15 [History] Fluticasone/Salmeterol [Advair Diskus 500-50] 1 puff INH BID 12/05/15 [History] azaTHIOprine [Azathioprine] 150 mg PO DAILY 12/05/15 [History] Isosorbide Mononitrate [Isosorbide Mononitrate ER] 30 mg PO DAILY 04/12/16 [ History] Insulin Aspart [NovoLOG] 12 unit SUBCUT TIDMEALS 06/05/16 [History] Pantoprazole [ProTONIX] 40 mg PO DAILY 07/13/16 [History] Clotrimazole [Mycelex] 10 mg PO 5XDAY 07/29/16 [History] Insulin Detemir [Levemir Flextouch] 30 units SQ BID #300 ml 08/28/16 [Rx] Prednisone [IJD: predniSONE] 20 mg PO DAILY 10/28/16 [History] Spironolactone [Aldactone] 25 mg PO DAILY #30 tablet 07/28/17 [Rx] Bumetanide [Bumex] 2 mg PO DAILY@1400 #0 tablet 01/23/17 [Rx] Bumetanide [Bumex] 3 mg PO DAILY@0800 tablet 01/23/17 [Rx] ALPRAZolam [Alprazolam] 0.25 mg PO ASDIRECTED PRN 02/22/17 [History] Morphine Sulfate 15 mg SL ASDIRECTED PRN 02/22/17 [History] Doxycycline Calcium [IMW: Doxycycline] 100 mg PO BID #7 capsule 02/25/17 [Rx] Morphine 15 mg PO Q4H PRN #10 tablet 02/25/17 [Rx] Past Medical History HEENT History: Reports: Cataract, Impaired Vision Cardiovascular History: Reports: Angina, Heart Failure, Hypertension, SOB on Exertion, Other (See Below) Other Cardiovascular History: diastolic congestive heart failure Respiratory History: Reports: Asthma, Bronchitis, Recurrent, COPD, Pneumonia, Recurrent, SOB, Other (See Below) Other Respiratory History: Home 3l O2 and nebs Gastrointestinal History: Reports: Cholelithiasis, GERD, Other (See Below) Other Gastrointestinal History: history of bezoars Genitourinary History: Reports: Diabetic Nephropathy, Urinary Incontinence, Other (See Below) Other Genitourinary History: mass by bladder taken out non cancer [employer] History: Reports: PID, , Spontaneous Musculoskeletal History: Reports: Back Pain, Chronic, Osteoarthritis, RA Neurological History: Reports: Neuropathy, Diabetic Psychiatric History: Reports: Anxiety, Depression, Panic Attack Endocrine/Metabolic History: Reports: Diabetes, Type II, Obesity/BMI 30+, Osteoporosis Hematologic History: Reports: B12 Deficiency Immunologic History: Reports: Immunosuppression, Other (See Below) Other Immunologic History: on medication that affects immunity Oncologic (Cancer) History: Reports: None Dermatologic History: Reports: Other (See Below) Other Dermatologic History: chronic sore left arm - Infectious Disease History Infectious Disease History: Reports: Chicken Pox, Measles, Mumps, Rubella - Past Surgical History HEENT Surgical History: Reports: Cataract Surgery, Tonsillectomy Cardiovascular Surgical History: Reports: None Respiratory Surgical History: Reports: None GI Surgical History: Reports: Cholecystectomy, Colon, EGD Female Surgical History: Reports: Breast Biopsy, Hysterectomy, Tubal Ligation Endocrine Surgical History: Reports: None Neurological Surgical History: Reports: None Musculoskeletal Surgical History: Reports: Knee Replacement Oncologic Surgical History: Reports: None Dermatological Surgical History: Reports: None Social & Family History - Family History Family Medical History: Noncontributory HEENT: Reports: Cataract Cardiac: Reports: CAD Respiratory: Reports: Asthma : Reports: Other (See Below) Other Family History: mom kidney CA Musculoskeletal: Reports: Arthritis, RA Neurological: Reports: CVA, Seizure Endocrine/Metabolic: Reports: Diabetes, type II - Tobacco Use Smoking Status *Q: Never Smoker Years of Tobacco use: 15 Packs/Tins Daily: 2 Used Tobacco, but Quit: Yes Month Tobacco Last Used: 06/1979 Second Hand Smoke Exposure: No - Caffeine Use Caffeine Use: Reports: Soda Other Caffeine Use: 3 bottles a day Caffeine Use Comment: 2-3 daily - Alcohol Use Days Per Week of Alcohol Use: 0 - Recreational Drug Use Recreational Drug Use: No - Living Situation & Occupation Living situation: Reports: , with Spouse, Other (Her son is her [employer] care provider) Occupation: Disabled H&P Review of Systems - Review of Systems: Review Of Systems: See Below General: Denies: Fever, Chills, Diaphoresis HEENT: Reports: No Symptoms Pulmonary: Reports: Shortness of Breath, Cough, Sputum. Denies: Wheezing, Pleuritic Chest Pain, Hemoptysis Cardiovascular: Reports: Dyspnea on Exertion. Denies: Chest Pain, Palpitations , Orthopnea, PND, Edema, Lightheadedness Gastrointestinal: Reports: No Symptoms Genitourinary: Reports: No Symptoms Musculoskeletal: Reports: Other (Muscular chest and upper abdomen pain) Skin: Reports: No Symptoms Psychiatric: Reports: No Symptoms Neurological: Reports: No Symptoms Hematologic/Lymphatic: Reports: No Symptoms Immunologic: Reports: No Symptoms Exam - Exam Exam: See Below - Vital Signs Vital Signs: Last Vital Signs Temp 99.6 F 03/17/17 15:14 Pulse 95 03/17/17 14:35 Resp 18 03/17/17 13:21 BP 144/76 H 03/17/17 15:35 Pulse Ox 95 03/17/17 14:35 Weight: 303 lb - Exam Quality Assessment: Supplemental Oxygen, DVT Prophylaxis General: Alert, Oriented, Cooperative, Mild Distress HEENT: Conjunctiva Clear, Hearing Intact, Mucosa Moist & [place], Normal Nasal Septum, Posterior Pharynx Clear, Pupils Equal Neck: Supple, Trachea Midline, +2 Carotid Pulse wo Bruit Lungs: Normal Respiratory Effort, Decreased Breath Sounds, Rales. No: Crackles , Rhonchi, Rub, Stridor, Wheezing Cardiovascular: Regular Rate, Regular Rhythm, Normal S1, Normal S2. No: Irregular Rhythm, Bradycardia, Tachycardia, Systolic Murmur, Diastolic Murmur GI/Abdominal Exam: Normal Bowel Sounds, Soft, Non-Tender, No Distention Back Exam: Normal Inspection, Full Range of Motion Extremities: Non-Tender, No Pedal Edema Skin: Warm, Dry, Intact Neurological: Cranial Nerves Intact, Strength Equal Bilateral, Normal Speech, Normal Tone, Sensation Intact. No: Focal Deficit Neuro Extensive - Mental Status: Alert, Oriented x3, Normal Mood/Affect, Normal Cognition, Memory Intact *Q Meaningful Use (ADM) - VTE *Q VTE Criteria *Q: - VTE Risk Assess *Q Each Risk Factor Represents 1 Point: Obesity ( BMI > 25 kg/m2), Congestive heart failure (CHF), Abnormal Pulmonary Function (COPD) Total Score 1 Point Risk Factors: 3 Each Risk Factor Represents 2 Points: Age 60 - 74 Years Total Score 2 Point Risk Factors: 2 Each Risk Factor Represents 3 Points: None Total Score 3 Point Risk Factors: 0 Each Risk Factor Represents 5 Points: None Total Score 5 Point Risk Factors: 0 Venous Thromboembolism Risk Factor Score *Q: 5 - Stroke *Q Stroke Criteria *Q: - AMI *Q AMI Criteria *Q: Problem List Initiated/Reviewed/Updated: Yes Orders Last 24hrs: Active Orders 24 hr Category Date Time Status Patient Status [ADT] Routine ADT 03/17/17 14:00 Active Blood Glucose Check, Bedside [RC] QIDACANDBED Care 03/17/17 16:45 Active Communication Order [RC] ASDIRECTED Care 03/17/17 16:46 Active Diabetes Education [RC] Click to Edit Care 03/17/17 16:45 Active Intake and Output [RC] QSHIFT Care 03/17/17 14:00 Active Notify Provider Vital Signs [RC] ASDIRECTED Care 03/17/17 14:00 Active Notify Provider [RC] PRN Care 03/17/17 16:45 Active Oxygen Therapy [RC] PRN Care 03/17/17 14:00 Active RT Aerosol Therapy [RC] ASDIRECTED Care 03/17/17 14:00 Active Up With Assistance [RC] ASDIRECTED Care 03/17/17 14:00 Active VTE/DVT Education [RC] Per Unit Routine Care 03/17/17 14:00 Active Vital Signs [RC] Q4H Care 03/17/17 14:00 Active 2 Gram Sodium Diet [DIET] Diet 03/17/17 Lunch Active Consistent Carbohydrate Diet [DIET] Diet 03/17/17 Lunch Active BASIC METABOLIC PANEL,BMP [CHEM] AM Lab 03/18/17 05:11 Ordered GLUCOSE POC LAB TO COLLECT [POC] QIDACANDBED Lab 03/17/17 21:00 Ordered GLUCOSE POC LAB TO COLLECT [POC] QIDACANDBED Lab 03/18/17 07:30 Ordered GLUCOSE POC LAB TO COLLECT [POC] QIDACANDBED Lab 03/18/17 11:30 Ordered GLUCOSE POC LAB TO COLLECT [POC] QIDACANDBED Lab 03/18/17 16:30 Ordered GLUCOSE POC LAB TO COLLECT [POC] QIDACANDBED Lab 03/18/17 21:00 Ordered GLUCOSE POC LAB TO COLLECT [POC] QIDACANDBED Lab 03/19/17 07:30 Ordered GLUCOSE POC LAB TO COLLECT [POC] QIDACANDBED Lab 03/19/17 11:30 Ordered GLUCOSE POC LAB TO COLLECT [POC] QIDACANDBED Lab 03/19/17 16:30 Ordered GLUCOSE POC LAB TO COLLECT [POC] QIDACANDBED Lab 03/19/17 21:00 Ordered GLUCOSE POC LAB TO COLLECT [POC] QIDACANDBED Lab 03/20/17 07:30 Ordered GLUCOSE POC LAB TO COLLECT [POC] QIDACANDBED Lab 03/20/17 11:30 Ordered GLUCOSE POC LAB TO COLLECT [POC] QIDACANDBED Lab 03/20/17 16:30 Ordered GLUCOSE POC LAB TO COLLECT [POC] QIDACANDBED Lab 03/20/17 21:00 Ordered GLUCOSE POC LAB TO COLLECT [POC] QIDACANDBED Lab 03/21/17 07:30 Ordered GLUCOSE POC LAB TO COLLECT [POC] QIDACANDBED Lab 03/21/17 11:30 Ordered GLUCOSE POC LAB TO COLLECT [POC] QIDACANDBED Lab 03/21/17 16:30 Ordered GLUCOSE POC LAB TO COLLECT [POC] QIDACANDBED Lab 03/21/17 21:00 Ordered GLUCOSE POC LAB TO COLLECT [POC] QIDACANDBED Lab 03/22/17 07:30 Ordered GLUCOSE POC LAB TO COLLECT [POC] QIDACANDBED Lab 03/22/17 11:30 Ordered GLUCOSE POC LAB TO COLLECT [POC] QIDACANDBED Lab 03/22/17 16:30 Ordered GLUCOSE POC LAB TO COLLECT [POC] QIDACANDBED Lab 03/22/17 21:00 Ordered GLUCOSE POC LAB TO COLLECT [POC] QIDACANDBED Lab 03/23/17 07:30 Ordered GLUCOSE POC LAB TO COLLECT [POC] QIDACANDBED Lab 03/23/17 11:30 Ordered GLUCOSE POC LAB TO COLLECT [POC] QIDACANDBED Lab 03/23/17 16:30 Ordered GLUCOSE POC LAB TO COLLECT [POC] QIDACANDBED Lab 03/23/17 21:00 Ordered GLUCOSE POC LAB TO COLLECT [POC] QIDACANDBED Lab 03/24/17 07:30 Ordered GLUCOSE POC LAB TO COLLECT [POC] QIDACANDBED Lab 03/24/17 11:30 Ordered GLUCOSE POC LAB TO COLLECT [POC] QIDACANDBED Lab 03/24/17 16:30 Ordered GLUCOSE POC LAB TO COLLECT [POC] QIDACANDBED Lab 03/24/17 21:00 Ordered GLUCOSE POC LAB TO COLLECT [POC] QIDACANDBED Lab 03/25/17 07:30 Ordered GLUCOSE POC LAB TO COLLECT [POC] QIDACANDBED Lab 03/25/17 11:30 Ordered GLUCOSE POC LAB TO COLLECT [POC] QIDACANDBED Lab 03/25/17 16:30 Ordered GLUCOSE POC LAB TO COLLECT [POC] QIDACANDBED Lab 03/25/17 21:00 Ordered GLUCOSE POC LAB TO COLLECT [POC] QIDACANDBED Lab 03/26/17 07:30 Ordered GLUCOSE POC LAB TO COLLECT [POC] QIDACANDBED Lab 03/26/17 11:30 Ordered GLUCOSE POC LAB TO COLLECT [POC] QIDACANDBED Lab 03/26/17 16:30 Ordered GLUCOSE POC LAB TO COLLECT [POC] QIDACANDBED Lab 03/26/17 21:00 Ordered GLUCOSE POC LAB TO COLLECT [POC] QIDACANDBED Lab 03/27/17 07:30 Ordered GLUCOSE POC LAB TO COLLECT [POC] QIDACANDBED Lab 03/27/17 11:30 Ordered GLUCOSE POC LAB TO COLLECT [POC] QIDACANDBED Lab 03/27/17 16:30 Ordered GLUCOSE POC LAB TO COLLECT [POC] QIDACANDBED Lab 03/27/17 21:00 Ordered GLUCOSE POC LAB TO COLLECT [POC] QIDACANDBED Lab 03/28/17 07:30 Ordered GLUCOSE POC LAB TO COLLECT [POC] QIDACANDBED Lab 03/28/17 11:30 Ordered GLUCOSE POC LAB TO COLLECT [POC] QIDACANDBED Lab 03/28/17 16:30 Ordered MAGNESIUM [CHEM] AM Lab 03/18/17 05:11 Ordered ALPRAZolam [Xanax] Med 03/17/17 14:00 Active 0.25 mg PO Q4H PRN Acetaminophen [Tylenol] Med 03/17/17 14:00 Active 650 mg PO Q4H PRN Albuterol [Proventil Neb Soln] Med 03/17/17 14:00 Active 2.5 mg NEB Q4H PRN Albuterol/Ipratropium [DuoNeb 3.0-0.5 MG/3 ML] Med 03/17/17 15:00 Active 3 ml INH QIDRT Aspirin Med 03/18/17 09:00 Active 81 mg PO DAILY Bumetanide [Bumex] Med 03/18/17 06:30 Once 4 mg IVPUSH ONETIME ONE Cyclobenzaprine [Flexeril] Med 03/17/17 14:00 Active 10 mg PO TID PRN Dextrose 50% in Water Med 03/17/17 16:45 Active 50 ml IV ONETIME PRN Dextrose [Glutose 15] Med 03/17/17 16:45 Active 15 gm PO ONETIME PRN Docusate Sodium [Colace] Med 03/17/17 14:00 Active 100 mg PO BID PRN Enoxaparin [Lovenox] Med 03/17/17 15:30 Active 40 mg SUBCUT Q24H Escitalopram [Lexapro] Med 03/17/17 21:00 Active 30 mg PO BEDTIME Folic Acid Med 03/18/17 09:00 Active 1 mg PO DAILY Gabapentin [Neurontin] Med 03/17/17 21:00 Active 300 mg PO BID Insulin Aspart [NovoLOG] Med 03/17/17 17:00 Active 12 unit SUBCUT TIDMEALS Insulin Aspart [NovoLOG] Med 03/17/17 17:00 Active See Protocol SUBCUT QIDACANDBED Insulin Detemir [Levemir] Med 03/17/17 21:00 Active 30 unit SUBCUT BID Isosorbide Mononitrate [Imdur] Med 03/18/17 09:00 Active 30 mg PO DAILY Lactobacillus Rhamnosus GG [Culturelle] Med 03/17/17 21:00 Active 1 cap PO BID Lisinopril [Prinivil] Med 03/18/17 09:00 Active 20 mg PO DAILY Magnesium Hydroxide [Milk of Magnesia] Med 03/17/17 14:00 Active 30 ml PO Q12H PRN Magnesium Oxide Med 03/17/17 21:00 Active 400 mg PO BID Metoprolol Succinate [Toprol XL] Med 03/17/17 21:00 Active 25 mg PO BEDTIME Mometasone/Formoterol [Dulera 200-5 MCG] Med 03/17/17 21:00 Active 2 puff IH BIDRT Morphine Med 03/17/17 14:00 Active 15 mg PO Q4H PRN Ondansetron [Zofran] Med 03/17/17 14:00 Active 4 mg IV Q4H PRN Oxybutynin Med 03/18/17 09:00 Active 5 mg PO BID Pantoprazole [ProTONIX] Med 03/18/17 07:30 Active 40 mg PO ACBREAKFAST Polyethylene Glycol 3350 [MiraLAX] Med 03/17/17 14:00 Active 17 gm PO DAILY PRN Potassium Chloride [Klor-Con M20] Med 03/17/17 17:00 Active 20 meq PO BIDMEALS Simvastatin [Zocor] Med 03/17/17 21:00 Active 10 mg PO BEDTIME Sodium Chloride 0.9% [Saline Flush] Med 03/17/17 14:00 Active 10 ml FLUSH ASDIRECTED PRN Spironolactone [Aldactone] Med 03/18/17 09:00 Active 25 mg PO DAILY Verapamil [Calan SR] Med 03/17/17 16:30 Active 180 mg PO BIDAC azaTHIOprine [Imuran] Med 03/18/17 09:00 Active 150 mg PO DAILY metFORMIN [Glucophage] Med 03/17/17 17:00 Active 850 mg PO BIDMEALS predniSONE Med 03/18/17 09:00 Active 20 mg PO DAILY traZODone Med 03/17/17 21:00 Active 50 mg PO BEDTIME Saline Lock Insert [OM.PC] Routine Oth 03/17/17 14:00 Ordered Resuscitation Status Routine Resus Stat 03/17/17 13:39 Ordered Medication Orders Acetaminophen (Tylenol) 650 mg PO Q4H PRN PRN Reason: Pain (Mild 1-3)/fever Last Admin: 03/17/17 15:14 Dose: 650 mg Albuterol (Proventil Neb Soln) 2.5 mg NEB Q4H PRN PRN Reason: Shortness Of Breath/wheezing Albuterol/Ipratropium (Duoneb 3.0-0.5 Mg/3 Ml) 3 ml INH QIDRT [facility] Last Admin: 03/17/17 14:34 Dose: 3 ml Alprazolam (Xanax) 0.25 mg PO Q4H PRN PRN Reason: Anxiety Aspirin (Aspirin) 81 mg PO DAILY [facility] Azathioprine (Imuran) 150 mg PO DAILY [facility] Bumetanide (Bumex) 4 mg IVPUSH ONETIME ONE Stop: 03/18/17 06:31 Cyclobenzaprine HCl (Flexeril) 10 mg PO TID PRN PRN Reason: Pain Dextrose (Glutose 15) 15 gm PO ONETIME PRN PRN Reason: Hypoglycemia Dextrose/Water (Dextrose 50% In Water) 50 ml IV ONETIME PRN PRN Reason: Hypoglycemia Docusate Sodium (Colace) 100 mg PO BID PRN PRN Reason: Constipation Enoxaparin Sodium (Lovenox) 40 mg SUBCUT Q24H [facility] Last Admin: 03/17/17 15:35 Dose: 40 mg Escitalopram Oxalate 10 mg/ (Escitalopram Oxalate 20 mg) 30 mg PO BEDTIME [facility] Folic Acid (Folic Acid) 1 mg PO DAILY [facility] Gabapentin (Neurontin) 300 mg PO BID [facility] Insulin Aspart (Novolog) 12 unit SUBCUT TIDMEALS [facility] Last Admin: 03/17/17 15:31 Dose: 12 units Insulin Aspart (Novolog) 0 unit SUBCUT QIDACANDBED [facility] PRN Reason: Protocol Insulin Detemir (Levemir) 30 unit SUBCUT BID [facility] Isosorbide Mononitrate (Imdur) 30 mg PO DAILY [facility] Lactobacillus Rhamnosus (Culturelle) 1 cap PO BID [facility] Lisinopril (Prinivil) 20 mg PO DAILY [facility] Magnesium Hydroxide (Milk Of Magnesia) 30 ml PO Q12H PRN PRN Reason: Constipation Magnesium Oxide (Magnesium Oxide) 400 mg PO BID [facility] Metformin HCl (Glucophage) 850 mg PO BIDMEALS [facility] Metoprolol Succinate (Toprol Xl) 25 mg PO BEDTIME [facility] Mometasone Furoate/Formoterol Fumar (Dulera 200-5 Mcg) 2 puff IH BIDRT [facility] Morphine Sulfate (Morphine) 15 mg PO Q4H PRN PRN Reason: Pain Last Admin: 03/17/17 14:16 Dose: 15 mg Ondansetron HCl (Zofran) 4 mg IV Q4H PRN PRN Reason: Nausea/Vomiting Oxybutynin Chloride (Oxybutynin) 5 mg PO BID [facility] Pantoprazole Sodium (Protonix) 40 mg PO ACBREAKFAST [facility] Polyethylene Glycol (Miralax) 17 gm PO DAILY PRN PRN Reason: Constipation Potassium Chloride (Klor-Con M20) 20 meq PO BIDMEALS [facility] Prednisone (Prednisone) 20 mg PO DAILY [facility] Simvastatin (Zocor) 10 mg PO BEDTIME [facility] Sodium Chloride (Saline Flush) 10 ml FLUSH ASDIRECTED PRN PRN Reason: Keep Vein Open Spironolactone (Aldactone) 25 mg PO DAILY [facility] Trazodone HCl (Trazodone) 50 mg PO BEDTIME [facility] Verapamil HCl (Calan Sr) 180 mg PO BIDAC [facility] Assessment/Plan Comment:: ASSESSMENT AND PLAN CONGESTIVE HEART FAILURE WITH PRESERVED LEFT VENTRICULAR FUNCTION - increased shortness of breath over the past few days with documented weight gain of 10 pounds -Bumex 4 mg IV now and in a.m. -Strict 2 g sodium diet -Accurate I.'s and O.'s -Supplemental oxygen -Continue home medications COPD -no evidence of acute COPD exacerbation or significant underlying infection -Nebulizer therapy as needed -Continue outpatient medical regimen DIABTETS TYPE 2 -Levemir 40 units subcut bid -Novolog 12 units with meals -Sliding scale coverage; moderate dose -Continue metformin 850 mg by mouth twice a day CHRONIC PAIN - stable -Discontinue IV morphine -Continue outpatient medical therapy with oxycodone MAINTENANCE ISSUES -Nutrition: Consistent carb diet -Dougherty catheter; not indicated -DVT: Lovenox 40 mg subcutaneous daily -GI; Protonix 40mg daily DISPOSITION; plan for discharge to home after her hospital stay PRIMARY CARE PROVIDER-Dr. Gonsalez
[2017-03-17] MEDS: ALPRAZolam 0.25 MG Tab PO PRN ×2 (19:54→20:01)
[2017-03-17] MEDS: traZODone 50 MG Tab PO SCH (20:26)
[2017-03-17] MEDS: Lactobacillus Rhamnosus GG (Probiotic) Cap PO SCH (20:26)
[2017-03-17] MEDS: Magnesium Oxide 400 MG Tab PO SCH (20:26)
[2017-03-17] MEDS: ESCITALOPRAM PO SCH ×2 (20:26)
[2017-03-17] MEDS: Metoprolol Succinate 25 MG Tab.ER PO SCH (20:27)
[2017-03-17] MEDS: Gabapentin 300 MG Cap PO SCH (20:27)
[2017-03-17] MEDS: Simvastatin 20 MG Tab PO SCH (20:28)
[2017-03-17] MEDS: Formoterol/Mometasone 200-5 MCG 8.8 GM Inhaler IH SCH (20:30)
[2017-03-17] MEDS ORDERED: Formoterol/Mometasone 200-5 MCG 8.8 GM Inhaler IH SCH (21:00)
[2017-03-17] MEDS ORDERED: LACTOBACILLUS ACIDOPHILUS PO SCH (21:00)
[2017-03-17] MEDS ORDERED: Non-Formulary Medication 1 Each (Simvastatin [Zocor] 10 MG) PO SCH (21:00)
[2017-03-17] MEDS ORDERED: Non-Formulary Medication 1 Each (Fluticasone/Salmeterol [Advair Diskus 500-50] 1 PUFF) INH SCH (21:00)
[2017-03-17] MEDS ORDERED: Escitalopram 20 MG Tab PO SCH (21:00)
[2017-03-17] MEDS: Insulin Detemir 100 Units/ML 3 ML Pen SUBCUT SCH (21:11)
[2017-03-18] MEDS: Morphine 15 MG Tab PO PRN ×4 (00:09→21:11)
[2017-03-18] MEDS: ALPRAZolam 0.25 MG Tab PO PRN ×2 (00:09→23:41)
[2017-03-18] MEDS ORDERED: Bumetanide 2.5 MG/10 ML MDV IVPUSH ONE (06:30)
[2017-03-18] MEDS: Albuterol/Ipratropium 3.0-0.5 MG/3 ML Neb Soln INH SCH ×4 (07:18→21:11)
[2017-03-18] MEDS: Insulin Aspart 100 Units/ML 3 ML Pen SUBCUT SCH ×7 (07:52→21:03)
[2017-03-18] MEDS: Potassium Chloride 20 MEQ Tab.ER PO SCH ×2 (07:54→17:23)
[2017-03-18] MEDS: Verapamil 180 MG Tab.ER PO SCH ×2 (07:54→17:23)
[2017-03-18] MEDS: Pantoprazole 40 MG Tab.CR PO SCH (07:54)
[2017-03-18] MEDS: Insulin Detemir 100 Units/ML 3 ML Pen SUBCUT SCH ×2 (07:59→20:54)
[2017-03-18] MEDS: Formoterol/Mometasone 200-5 MCG 8.8 GM Inhaler IH SCH ×2 (08:10→20:54)
[2017-03-18] MEDS: Lactobacillus Rhamnosus GG (Probiotic) Cap PO SCH ×2 (08:57→20:54)
[2017-03-18] MEDS: Folic Acid 1 MG Tab PO SCH (08:57)
[2017-03-18] MEDS: Spironolactone 25 MG Tab PO SCH (08:57)
[2017-03-18] MEDS: Aspirin 81 MG Tab.Chew PO SCH (08:57)
[2017-03-18] MEDS: Isosorbide Mononitrate 30 MG Tab.ER PO SCH (08:57)
[2017-03-18] MEDS: Magnesium Oxide 400 MG Tab PO SCH ×2 (09:00→20:57)
[2017-03-18] MEDS ORDERED: OXYBUTYNIN 10 MG PO SCH (09:00)
[2017-03-18] MEDS: Gabapentin 300 MG Cap PO SCH ×2 (09:01→20:57)
[2017-03-18] MEDS: Oxybutynin 5 MG Tab PO SCH ×2 (09:01→20:57)
[2017-03-18] MEDS: Lisinopril 20 MG Tab PO SCH (09:01)
[2017-03-18] MEDS: predniSONE 20 MG Tab PO SCH (09:01)
--- NOTE | 2017-03-18 10:25 | PCM.PN ---
- General Info Date of Service: 03/18/17 Functional Status: Reports: Pain Controlled, Tolerating Diet, Urinating - Review of Systems General: Denies: Fever, Chills Pulmonary: Reports: Shortness of Breath, Cough. Denies: Sputum, Hemoptysis, Wheezing Cardiovascular: Reports: Dyspnea on Exertion. Denies: Chest Pain, Palpitations , Edema Gastrointestinal: Reports: No Symptoms Musculoskeletal: Reports: Other (Chest wall pain) Systems Review Comment:: Dipti has improved modestly since admission, less shortness of breath. She's had a good diuresis thus far from the IV Bumex. Continues to experience chest wall pain related to her chronic cough. - Patient Data Vitals - Most Recent: Last Vital Signs Temp 96.5 F 03/18/17 08:18 Pulse 81 03/18/17 08:18 Resp 16 03/18/17 08:18 BP 137/75 03/18/17 09:01 Pulse Ox 96 03/18/17 08:18 Weight - Most Recent: 296 lb 9.6 oz I&O - Last 24 Hours: Intake & Output 03/17/17 03/18/17 03/18/17 22:59 06:59 14:59 Intake Total 855 630 Output Total 5737 192 0181 Balance -761 -388 -130 Lab Results Last 24 Hours: Laboratory Results - last 24 hr 03/18/17 Range/Units 04:45 Sodium 141 (140-148) mmol/L Potassium 3.9 (3.6-5.2) mmol/L Chloride 101 (100-108) mmol/L Carbon Dioxide 36 H (21-32) mmol/L Anion Gap 7.9 (5.0-14.0) mmol/L BUN 21 H (7-18) mg/dL Creatinine 0.8 (0.6-1.0) mg/dL Est Cr Clr Drug Dosing 67.38 mL/min Estimated GFR (MDRD) > 60 (>60) Glucose 185 H (74-106) mg/dL Calcium 8.7 (8.5-10.1) mg/dL Magnesium 1.8 (1.8-2.4) mg/dL Med Orders - Current: Current Medications Acetaminophen (Tylenol) 650 mg PO Q4H PRN PRN Reason: Pain (Mild 1-3)/fever Last Admin: 03/17/17 15:14 Dose: 650 mg Albuterol (Proventil Neb Soln) 2.5 mg NEB Q4H PRN PRN Reason: Shortness Of Breath/wheezing Albuterol/Ipratropium (Duoneb 3.0-0.5 Mg/3 Ml) 3 ml INH QIDRT [facility] Last Admin: 03/18/17 07:18 Dose: 3 ml Alprazolam (Xanax) 0.25 mg PO Q4H PRN PRN Reason: Anxiety Last Admin: 03/18/17 00:09 Dose: 0.25 mg Aspirin (Aspirin) 81 mg PO DAILY [facility] Last Admin: 03/18/17 08:57 Dose: 81 mg Azathioprine (Imuran) 150 mg PO DAILY [facility] Last Admin: 03/18/17 09:00 Dose: 150 mg Bumetanide (Bumex) 3 mg PO BIDDIURETIC [facility] Cyclobenzaprine HCl (Flexeril) 10 mg PO TID PRN PRN Reason: Pain Dextrose (Glutose 15) 15 gm PO ONETIME PRN PRN Reason: Hypoglycemia Dextrose/Water (Dextrose 50% In Water) 50 ml IV ONETIME PRN PRN Reason: Hypoglycemia Docusate Sodium (Colace) 100 mg PO BID PRN PRN Reason: Constipation Enoxaparin Sodium (Lovenox) 40 mg SUBCUT Q24H [facility] Last Admin: 03/17/17 15:35 Dose: 40 mg Escitalopram Oxalate 10 mg/ (Escitalopram Oxalate 20 mg) 30 mg PO BEDTIME [facility] Last Admin: 03/17/17 20:26 Dose: 30 mg Folic Acid (Folic Acid) 1 mg PO DAILY [facility] Last Admin: 03/18/17 08:57 Dose: 1 mg Gabapentin (Neurontin) 300 mg PO BID [facility] Last Admin: 03/18/17 09:01 Dose: 300 mg Heparin Sodium (Porcine) (Heparin Lock Flush 100 Units/Ml) 500 units FLUSH ASDIRECTED PRN PRN Reason: line maintanence Last Admin: 03/18/17 06:02 Dose: 500 units Insulin Aspart (Novolog) 12 unit SUBCUT TIDMEALS [facility] Last Admin: 03/18/17 07:53 Dose: 12 units Insulin Aspart (Novolog) 0 unit SUBCUT QIDACANDBED [facility] PRN Reason: Protocol Last Admin: 03/18/17 07:52 Dose: 2 units Insulin Detemir (Levemir) 30 unit SUBCUT BID [facility] Last Admin: 03/18/17 07:59 Dose: 30 units Isosorbide Mononitrate (Imdur) 30 mg PO DAILY [facility] Last Admin: 03/18/17 08:57 Dose: 30 mg Lactobacillus Rhamnosus (Culturelle) 1 cap PO BID [facility] Last Admin: 03/18/17 08:57 Dose: 1 cap Lisinopril (Prinivil) 20 mg PO DAILY [facility] Last Admin: 03/18/17 09:01 Dose: 20 mg Magnesium Hydroxide (Milk Of Magnesia) 30 ml PO Q12H PRN PRN Reason: Constipation Magnesium Oxide (Magnesium Oxide) 400 mg PO BID [facility] Last Admin: 03/18/17 09:00 Dose: 400 mg Metformin HCl (Glucophage) 850 mg PO BIDMEALS [facility] Last Admin: 03/18/17 07:54 Dose: 850 mg Metoprolol Succinate (Toprol Xl) 25 mg PO BEDTIME [facility] Last Admin: 03/17/17 20:27 Dose: 25 mg Mometasone Furoate/Formoterol Fumar (Dulera 200-5 Mcg) 2 puff IH BIDRT [facility] Last Admin: 03/18/17 08:10 Dose: 2 puff Morphine Sulfate (Morphine) 15 mg PO Q4H PRN PRN Reason: Pain Last Admin: 03/18/17 06:02 Dose: 15 mg Ondansetron HCl (Zofran) 4 mg IV Q4H PRN PRN Reason: Nausea/Vomiting Oxybutynin Chloride (Oxybutynin) 5 mg PO BID [facility] Last Admin: 03/18/17 09:01 Dose: 5 mg Pantoprazole Sodium (Protonix) 40 mg PO ACBREAKFAST [facility] Last Admin: 03/18/17 07:54 Dose: 40 mg Polyethylene Glycol (Miralax) 17 gm PO DAILY PRN PRN Reason: Constipation Potassium Chloride (Klor-Con M20) 20 meq PO BIDMEALS [facility] Last Admin: 03/18/17 07:54 Dose: 20 meq Prednisone (Prednisone) 20 mg PO DAILY [facility] Last Admin: 03/18/17 09:01 Dose: 20 mg Simvastatin (Zocor) 10 mg PO BEDTIME [facility] Last Admin: 03/17/17 20:28 Dose: 10 mg Sodium Chloride (Saline Flush) 10 ml FLUSH ASDIRECTED PRN PRN Reason: Keep Vein Open Spironolactone (Aldactone) 25 mg PO DAILY [facility] Last Admin: 03/18/17 08:57 Dose: 25 mg Trazodone HCl (Trazodone) 50 mg PO BEDTIME [facility] Last Admin: 03/17/17 20:26 Dose: 50 mg [facility] Admin: 03/18/17 07:54 Dose: 180 mg Discontinued Medications Bumetanide (Bumex) 4 mg IVPUSH ONETIME ONE Stop: 03/17/17 14:31 Last Admin: 03/17/17 15:35 Dose: 4 mg Bumetanide (Bumex) 4 mg IVPUSH ONETIME ONE Stop: 03/18/17 06:31 Last Admin: 03/18/17 06:04 Dose: 4 mg - Exam Quality Assessment: DVT Prophylaxis General: Alert, Oriented, Cooperative, No Acute Distress Lungs: Normal Respiratory Effort, Decreased Breath Sounds. No: Crackles, Rales , Rhonchi, Rub, Wheezing Cardiovascular: Regular Rate, Regular Rhythm, No Murmurs GI/Abdominal Exam: Normal Bowel Sounds, Soft, Non-Tender, No Organomegaly, No Distention Extremities: Non-Tender, No Pedal Edema Skin: Warm, Dry, Intact - Problem List Review Problem List Initiated/Reviewed/Updated: Yes - My Orders Last 24 Hours: My Active Orders 03/17/17 13:39 Resuscitation Status Routine 03/17/17 14:00 Patient Status [ADT] Routine Intake and Output [RC] QSHIFT Notify Provider Vital Signs [RC] ASDIRECTED Oxygen Therapy [RC] PRN RT Aerosol Therapy [RC] ASDIRECTED Up With Assistance [RC] ASDIRECTED VTE/DVT Education [RC] Per Unit Routine Vital Signs [RC] Q4H ALPRAZolam [Xanax] 0.25 mg PO Q4H PRN Acetaminophen [Tylenol] 650 mg PO Q4H PRN Albuterol [Proventil Neb Soln] 2.5 mg NEB Q4H PRN Cyclobenzaprine [Flexeril] 10 mg PO TID PRN Docusate Sodium [Colace] 100 mg PO BID PRN Magnesium Hydroxide [Milk of Magnesia] 30 ml PO Q12H PRN Morphine 15 mg PO Q4H PRN Ondansetron [Zofran] 4 mg IV Q4H PRN Polyethylene Glycol 3350 [MiraLAX] 17 gm PO DAILY PRN Sodium Chloride 0.9% [Saline Flush] 10 ml FLUSH ASDIRECTED PRN Saline Lock Insert [OM.PC] Routine 03/17/17 15:00 Albuterol/Ipratropium [DuoNeb 3.0-0.5 MG/3 ML] 3 ml INH QIDRT 03/17/17 15:30 Enoxaparin [Lovenox] 40 mg SUBCUT Q24H 03/17/17 16:30 Verapamil [Calan SR] 180 mg PO BIDAC 03/17/17 16:45 Blood Glucose Check, Bedside [RC] QIDACANDBED Diabetes Education [RC] Click to Edit Notify Provider [RC] PRN Dextrose 50% in Water 50 ml IV ONETIME PRN Dextrose [Glutose 15] 15 gm PO ONETIME PRN 03/17/17 16:46 Communication Order [RC] ASDIRECTED 03/17/17 17:00 Insulin Aspart [NovoLOG] 12 unit SUBCUT TIDMEALS Insulin Aspart [NovoLOG] See Protocol SUBCUT QIDACANDBED Potassium Chloride [Klor-Con M20] 20 meq PO BIDMEALS metFORMIN [Glucophage] 850 mg PO BIDMEALS 03/17/17 21:00 Escitalopram [Lexapro] 30 mg PO BEDTIME Gabapentin [Neurontin] 300 mg PO BID Insulin Detemir [Levemir] 30 unit SUBCUT BID Lactobacillus Rhamnosus GG [Culturelle] 1 cap PO BID Magnesium Oxide 400 mg PO BID Metoprolol Succinate [Toprol XL] 25 mg PO BEDTIME Mometasone/Formoterol [Dulera 200-5 MCG] 2 puff IH BIDRT Simvastatin [Zocor] 10 mg PO BEDTIME traZODone 50 mg PO BEDTIME 03/17/17 Lunch 2 Gram Sodium Diet [DIET] Consistent Carbohydrate Diet [DIET] 03/18/17 04:42 Heparin Sodium [Heparin Lock Flush 100 Units/ML] 500 units FLUSH ASDIRECTED PRN 03/18/17 07:30 Pantoprazole [ProTONIX] 40 mg PO ACBREAKFAST 03/18/17 08:33 Daily Weight [Height and Weight] [RC] DAILY 03/18/17 09:00 Aspirin 81 mg PO DAILY Folic Acid 1 mg PO DAILY Isosorbide Mononitrate [Imdur] 30 mg PO DAILY Lisinopril [Prinivil] 20 mg PO DAILY Oxybutynin 5 mg PO BID Spironolactone [Aldactone] 25 mg PO DAILY azaTHIOprine [Imuran] 150 mg PO DAILY predniSONE 20 mg PO DAILY 03/18/17 11:30 GLUCOSE POC LAB TO COLLECT [POC] QIDACANDBED 03/18/17 16:30 GLUCOSE POC LAB TO COLLECT [POC] QIDACANDBED 03/18/17 19:00 Bumetanide [Bumex] 3 mg PO BIDDIURETIC 03/18/17 21:00 GLUCOSE POC LAB TO COLLECT [POC] QIDACANDBED 03/19/17 07:30 GLUCOSE POC LAB TO COLLECT [POC] QIDACANDBED 03/19/17 11:30 GLUCOSE POC LAB TO COLLECT [POC] QIDACANDBED 03/19/17 16:30 GLUCOSE POC LAB TO COLLECT [POC] QIDACANDBED 03/19/17 21:00 GLUCOSE POC LAB TO COLLECT [POC] QIDACANDBED 03/20/17 07:30 GLUCOSE POC LAB TO COLLECT [POC] QIDACANDBED 03/20/17 11:30 GLUCOSE POC LAB TO COLLECT [POC] QIDACANDBED 03/20/17 16:30 GLUCOSE POC LAB TO COLLECT [POC] QIDACANDBED 03/20/17 21:00 GLUCOSE POC LAB TO COLLECT [POC] QIDACANDBED 03/21/17 07:30 GLUCOSE POC LAB TO COLLECT [POC] QIDACANDBED 03/21/17 11:30 GLUCOSE POC LAB TO COLLECT [POC] QIDACANDBED 03/21/17 16:30 GLUCOSE POC LAB TO COLLECT [POC] QIDACANDBED 03/21/17 21:00 GLUCOSE POC LAB TO COLLECT [POC] QIDACANDBED 03/22/17 07:30 GLUCOSE POC LAB TO COLLECT [POC] QIDACANDBED 03/22/17 11:30 GLUCOSE POC LAB TO COLLECT [POC] QIDACANDBED 03/22/17 16:30 GLUCOSE POC LAB TO COLLECT [POC] QIDACANDBED 03/22/17 21:00 GLUCOSE POC LAB TO COLLECT [POC] QIDACANDBED 03/23/17 07:30 GLUCOSE POC LAB TO COLLECT [POC] QIDACANDBED 03/23/17 11:30 GLUCOSE POC LAB TO COLLECT [POC] QIDACANDBED 03/23/17 16:30 GLUCOSE POC LAB TO COLLECT [POC] QIDACANDBED 03/23/17 21:00 GLUCOSE POC LAB TO COLLECT [POC] QIDACANDBED 03/24/17 07:30 GLUCOSE POC LAB TO COLLECT [POC] QIDACANDBED 03/24/17 11:30 GLUCOSE POC LAB TO COLLECT [POC] QIDACANDBED 03/24/17 16:30 GLUCOSE POC LAB TO COLLECT [POC] QIDACANDBED 03/24/17 21:00 GLUCOSE POC LAB TO COLLECT [POC] QIDACANDBED 03/25/17 07:30 GLUCOSE POC LAB TO COLLECT [POC] QIDACANDBED 03/25/17 11:30 GLUCOSE POC LAB TO COLLECT [POC] QIDACANDBED 03/25/17 16:30 GLUCOSE POC LAB TO COLLECT [POC] QIDACANDBED 03/25/17 21:00 GLUCOSE POC LAB TO COLLECT [POC] QIDACANDBED 03/26/17 07:30 GLUCOSE POC LAB TO COLLECT [POC] QIDACANDBED 03/26/17 11:30 GLUCOSE POC LAB TO COLLECT [POC] QIDACANDBED 03/26/17 16:30 GLUCOSE POC LAB TO COLLECT [POC] QIDACANDBED 03/26/17 21:00 GLUCOSE POC LAB TO COLLECT [POC] QIDACANDBED 03/27/17 07:30 GLUCOSE POC LAB TO COLLECT [POC] QIDACANDBED 03/27/17 11:30 GLUCOSE POC LAB TO COLLECT [POC] QIDACANDBED 03/27/17 16:30 GLUCOSE POC LAB TO COLLECT [POC] QIDACANDBED 03/27/17 21:00 GLUCOSE POC LAB TO COLLECT [POC] QIDACANDBED 03/28/17 07:30 GLUCOSE POC LAB TO COLLECT [POC] QIDACANDBED 03/28/17 11:30 GLUCOSE POC LAB TO COLLECT [POC] QIDACANDBED 03/28/17 16:30 GLUCOSE POC LAB TO COLLECT [POC] QIDACANDBED - Plan Plan:: ASSESSMENT AND PLAN CONGESTIVE HEART FAILURE WITH PRESERVED LEFT VENTRICULAR FUNCTION - increased shortness of breath over the past few days with documented weight gain of 10 pounds. Excellent diuresis since admission with improvement in shortness of breath -Bumex 3 mg by mouth twice a day -We will await -Strict 2 g sodium diet -Accurate I.'s and O.'s -Supplemental oxygen -Continue home medications COPD -no evidence of acute COPD exacerbation or significant underlying infection -Nebulizer therapy as needed -Continue outpatient medical regimen DIABTETS TYPE 2 -Levemir 40 units subcut bid -Novolog 12 units with meals -Sliding scale coverage; moderate dose -Continue metformin 850 mg by mouth twice a day CHRONIC PAIN - stable -Continue oral morphine MAINTENANCE ISSUES -Nutrition: Consistent carb diet -Dougherty catheter; not indicated -DVT: Lovenox 40 mg subcutaneous daily -GI; Protonix 40mg daily DISPOSITION; plan for discharge to home after her hospital stay PRIMARY CARE PROVIDER-Dr. Gonsalez
[2017-03-18] MEDS: Acetaminophen 325 MG Tab PO PRN (11:49)
[2017-03-18] MEDS: Enoxaparin 40 MG/0.4 ML Syringe SUBCUT SCH (15:49)
[2017-03-18] MEDS: Ondansetron 4 MG/2 ML SDV IV PRN ×2 (17:09→23:41)
[2017-03-18] MEDS ORDERED: Bumetanide 1 MG Tab PO SCH (19:00)
[2017-03-18] MEDS: ESCITALOPRAM PO SCH ×2 (20:56)
[2017-03-18] MEDS: Simvastatin 20 MG Tab PO SCH (20:58)
[2017-03-18] MEDS: Metoprolol Succinate 25 MG Tab.ER PO SCH (20:58)
[2017-03-18] MEDS: traZODone 50 MG Tab PO SCH (20:58)
[2017-03-19] MEDS: Albuterol/Ipratropium 3.0-0.5 MG/3 ML Neb Soln INH SCH ×4 (07:17→21:42)
[2017-03-19] MEDS: Formoterol/Mometasone 200-5 MCG 8.8 GM Inhaler IH SCH ×2 (07:17→21:25)
[2017-03-19] MEDS: Bumetanide 1 MG Tab PO SCH ×2 (08:25→13:12)
[2017-03-19] MEDS: Potassium Chloride 20 MEQ Tab.ER PO SCH ×2 (08:26→17:23)
[2017-03-19] MEDS: Isosorbide Mononitrate 30 MG Tab.ER PO SCH (08:27)
[2017-03-19] MEDS: Magnesium Oxide 400 MG Tab PO SCH ×2 (08:27→21:25)
[2017-03-19] MEDS: Pantoprazole 40 MG Tab.CR PO SCH (08:27)
[2017-03-19] MEDS: predniSONE 20 MG Tab PO SCH (08:28)
[2017-03-19] MEDS: Oxybutynin 5 MG Tab PO SCH ×2 (08:29→21:26)
[2017-03-19] MEDS: Lisinopril 20 MG Tab PO SCH (08:30)
[2017-03-19] MEDS: Verapamil 180 MG Tab.ER PO SCH ×2 (08:30→15:44)
[2017-03-19] MEDS: Folic Acid 1 MG Tab PO SCH (08:31)
[2017-03-19] MEDS: Lactobacillus Rhamnosus GG (Probiotic) Cap PO SCH ×2 (08:31→21:25)
[2017-03-19] MEDS: Aspirin 81 MG Tab.Chew PO SCH (08:32)
[2017-03-19] MEDS: Gabapentin 300 MG Cap PO SCH ×2 (08:33→21:26)
[2017-03-19] MEDS: Insulin Detemir 100 Units/ML 3 ML Pen SUBCUT SCH ×2 (08:39→21:27)
[2017-03-19] MEDS: Insulin Aspart 100 Units/ML 3 ML Pen SUBCUT SCH ×8 (08:41→21:36)
[2017-03-19] MEDS: Spironolactone 25 MG Tab PO SCH (09:28)
--- NOTE | 2017-03-19 10:50 | PCM.PN ---
- General Info Date of Service: 03/19/17 Functional Status: Reports: Ambulating, Urinating - Review of Systems General: Denies: Fever, Chills Pulmonary: Reports: Shortness of Breath, Cough. Denies: Pleuritic Chest Pain, Hemoptysis, Wheezing Cardiovascular: Reports: Dyspnea on Exertion. Denies: Chest Pain, Palpitations , Orthopnea, PND Gastrointestinal: Reports: Abdominal Pain, Nausea. Denies: Difficulty Swallowing, Vomiting Systems Review Comment:: Ms. Daniel has continued to experience right lower quadrant abdominal pain, not associated with activity eating or bowel movements. Continued good diuresis although weight is up 5 pounds from yesterday. Output has exceeded intake. Vital signs have overall been stable and she has remained afebrile - Patient Data Vitals - Most Recent: Last Vital Signs Temp 96.6 F 03/19/17 07:55 Pulse 78 03/19/17 07:55 Resp 16 03/19/17 07:55 BP 126/56 L 03/19/17 08:30 Pulse Ox 94 L 03/19/17 07:55 Weight - Most Recent: 296 lb 9.582 oz I&O - Last 24 Hours: Intake & Output 03/18/17 03/19/17 03/19/17 22:59 06:59 14:59 Intake Total 200 700 Output Total 300 500 Balance -300 200 200 Med Orders - Current: Current Medications Acetaminophen (Tylenol) 650 mg PO Q4H PRN PRN Reason: Pain (Mild 1-3)/fever Last Admin: 03/18/17 11:49 Dose: 650 mg Albuterol (Proventil Neb Soln) 2.5 mg NEB Q4H PRN PRN Reason: Shortness Of Breath/wheezing Albuterol/Ipratropium (Duoneb 3.0-0.5 Mg/3 Ml) 3 ml INH QIDRT [facility] Last Admin: 03/19/17 07:17 Dose: 3 ml Alprazolam (Xanax) 0.25 mg PO Q4H PRN PRN Reason: Anxiety Last Admin: 03/18/17 23:41 Dose: 0.25 mg Aspirin (Aspirin) 81 mg PO DAILY [facility] Last Admin: 03/19/17 08:32 Dose: 81 mg Azathioprine (Imuran) 150 mg PO DAILY [facility] Last Admin: 03/19/17 08:33 Dose: 150 mg Bumetanide (Bumex) 3 mg PO BIDDIURETIC [facility] Last Admin: 03/19/17 08:25 Dose: 3 mg Cyclobenzaprine HCl (Flexeril) 10 mg PO TID PRN PRN Reason: Pain Dextrose (Glutose 15) 15 gm PO ONETIME PRN PRN Reason: Hypoglycemia Dextrose/Water (Dextrose 50% In Water) 50 ml IV ONETIME PRN PRN Reason: Hypoglycemia Docusate Sodium (Colace) 100 mg PO BID PRN PRN Reason: Constipation Enoxaparin Sodium (Lovenox) 40 mg SUBCUT Q24H [facility] Last Admin: 03/18/17 15:49 Dose: 40 mg Escitalopram Oxalate 10 mg/ (Escitalopram Oxalate 20 mg) 30 mg PO BEDTIME [facility] Last Admin: 03/18/17 20:56 Dose: 30 mg Folic Acid (Folic Acid) 1 mg PO DAILY [facility] Last Admin: 03/19/17 08:31 Dose: 1 mg Gabapentin (Neurontin) 300 mg PO BID [facility] Last Admin: 03/19/17 08:33 Dose: 300 mg Heparin Sodium (Porcine) (Heparin Lock Flush 100 Units/Ml) 500 units FLUSH ASDIRECTED PRN PRN Reason: line maintanence Last Admin: 03/18/17 23:41 Dose: 500 units Insulin Aspart (Novolog) 12 unit SUBCUT TIDMEALS [facility] Last Admin: 03/19/17 08:41 Dose: 12 units Insulin Aspart (Novolog) 0 unit SUBCUT QIDACANDBED [facility] PRN Reason: Protocol Last Admin: 03/19/17 08:41 Dose: 4 units Insulin Detemir (Levemir) 30 unit SUBCUT BID [facility] Last Admin: 03/19/17 08:39 Dose: 30 units Isosorbide Mononitrate (Imdur) 30 mg PO DAILY [facility] Last Admin: 03/19/17 08:27 Dose: 30 mg Lactobacillus Rhamnosus (Culturelle) 1 cap PO BID [facility] Last Admin: 03/19/17 08:31 Dose: 1 cap Lisinopril (Prinivil) 20 mg PO DAILY [facility] Last Admin: 03/19/17 08:30 Dose: 20 mg Magnesium Hydroxide (Milk Of Magnesia) 30 ml PO Q12H PRN PRN Reason: Constipation Magnesium Oxide (Magnesium Oxide) 400 mg PO BID [facility] Last Admin: 03/19/17 08:27 Dose: 400 mg Metformin HCl (Glucophage) 850 mg PO BIDMEALS [facility] Last Admin: 03/19/17 08:28 Dose: 850 mg Metoprolol Succinate (Toprol Xl) 25 mg PO BEDTIME [facility] Last Admin: 03/18/17 20:58 Dose: 25 mg Mometasone Furoate/Formoterol Fumar (Dulera 200-5 Mcg) 2 puff IH BIDRT [facility] Last Admin: 03/19/17 07:17 Dose: 2 puff Morphine Sulfate (Morphine) 15 mg PO Q4H PRN PRN Reason: Pain Last Admin: 03/18/17 21:11 Dose: 15 mg Ondansetron HCl (Zofran) 4 mg IV Q4H PRN PRN Reason: Nausea/Vomiting Last Admin: 03/18/17 23:41 Dose: 4 mg Oxybutynin Chloride (Oxybutynin) 5 mg PO BID [facility] Last Admin: 03/19/17 08:29 Dose: 5 mg Pantoprazole Sodium (Protonix) 40 mg PO ACBREAKFAST [facility] Last Admin: 03/19/17 08:27 Dose: 40 mg Polyethylene Glycol (Miralax) 17 gm PO DAILY PRN PRN Reason: Constipation Potassium Chloride (Klor-Con M20) 20 meq PO BIDMEALS [facility] Last Admin: 03/19/17 08:26 Dose: 20 meq Prednisone (Prednisone) 20 mg PO DAILY [facility] Last Admin: 03/19/17 08:28 Dose: 20 mg Simvastatin (Zocor) 10 mg PO BEDTIME [facility] Last Admin: 03/18/17 20:58 Dose: 10 mg Sodium Chloride (Saline Flush) 10 ml FLUSH ASDIRECTED PRN PRN Reason: Keep Vein Open Spironolactone (Aldactone) 25 mg PO DAILY [facility] Last Admin: 03/19/17 09:28 Dose: 25 mg Trazodone HCl (Trazodone) 50 mg PO BEDTIME [facility] Last Admin: 03/18/17 20:58 Dose: 50 mg Verapamil HCl (Calan Sr) 180 mg PO BIDAC [facility] Last Admin: 03/19/17 08:30 Dose: 180 mg Discontinued Medications Bumetanide (Bumex) 4 mg IVPUSH ONETIME ONE Stop: 03/17/17 14:31 Last Admin: 03/17/17 15:35 Dose: 4 mg Bumetanide (Bumex) 4 mg IVPUSH ONETIME ONE Stop: 03/18/17 06:31 Last Admin: 03/18/17 06:04 Dose: 4 mg Bumetanide (Bumex) 3 mg PO BIDDIURETIC [facility] - Exam Quality Assessment: Supplemental Oxygen, DVT Prophylaxis General: Alert, Oriented, Mild Distress Lungs: Clear to Auscultation, Normal Respiratory Effort Cardiovascular: Regular Rate, Regular Rhythm, No Murmurs GI/Abdominal Exam: Normal Bowel Sounds, Soft, No Organomegaly, No Distention, Tender Extremities: Non-Tender, No Pedal Edema Skin: Warm, Dry, Intact - Problem List Review Problem List Initiated/Reviewed/Updated: Yes - My Orders Last 24 Hours: My Active Orders 03/19/17 08:00 Bumetanide [Bumex] 3 mg PO BIDDIURETIC 03/19/17 10:43 Abdomen Pelvis w Cont [CT] Urgent 03/19/17 11:30 GLUCOSE POC LAB TO COLLECT [POC] QIDACANDBED 03/19/17 16:30 GLUCOSE POC LAB TO COLLECT [POC] QIDACANDBED 03/19/17 21:00 GLUCOSE POC LAB TO COLLECT [POC] QIDACANDBED 03/20/17 07:30 GLUCOSE POC LAB TO COLLECT [POC] QIDACANDBED 03/20/17 11:30 GLUCOSE POC LAB TO COLLECT [POC] QIDACANDBED 03/20/17 16:30 GLUCOSE POC LAB TO COLLECT [POC] QIDACANDBED 03/20/17 21:00 GLUCOSE POC LAB TO COLLECT [POC] QIDACANDBED 03/21/17 07:30 GLUCOSE POC LAB TO COLLECT [POC] QIDACANDBED 03/21/17 11:30 GLUCOSE POC LAB TO COLLECT [POC] QIDACANDBED 03/21/17 16:30 GLUCOSE POC LAB TO COLLECT [POC] QIDACANDBED 03/21/17 21:00 GLUCOSE POC LAB TO COLLECT [POC] QIDACANDBED 03/22/17 07:30 GLUCOSE POC LAB TO COLLECT [POC] QIDACANDBED 03/22/17 11:30 GLUCOSE POC LAB TO COLLECT [POC] QIDACANDBED 03/22/17 16:30 GLUCOSE POC LAB TO COLLECT [POC] QIDACANDBED 03/22/17 21:00 GLUCOSE POC LAB TO COLLECT [POC] QIDACANDBED 03/23/17 07:30 GLUCOSE POC LAB TO COLLECT [POC] QIDACANDBED 03/23/17 11:30 GLUCOSE POC LAB TO COLLECT [POC] QIDACANDBED 03/23/17 16:30 GLUCOSE POC LAB TO COLLECT [POC] QIDACANDBED 03/23/17 21:00 GLUCOSE POC LAB TO COLLECT [POC] QIDACANDBED 03/24/17 07:30 GLUCOSE POC LAB TO COLLECT [POC] QIDACANDBED 03/24/17 11:30 GLUCOSE POC LAB TO COLLECT [POC] QIDACANDBED 03/24/17 16:30 GLUCOSE POC LAB TO COLLECT [POC] QIDACANDBED 03/24/17 21:00 GLUCOSE POC LAB TO COLLECT [POC] QIDACANDBED 03/25/17 07:30 GLUCOSE POC LAB TO COLLECT [POC] QIDACANDBED 03/25/17 11:30 GLUCOSE POC LAB TO COLLECT [POC] QIDACANDBED 03/25/17 16:30 GLUCOSE POC LAB TO COLLECT [POC] QIDACANDBED 03/25/17 21:00 GLUCOSE POC LAB TO COLLECT [POC] QIDACANDBED 03/26/17 07:30 GLUCOSE POC LAB TO COLLECT [POC] QIDACANDBED 03/26/17 11:30 GLUCOSE POC LAB TO COLLECT [POC] QIDACANDBED 03/26/17 16:30 GLUCOSE POC LAB TO COLLECT [POC] QIDACANDBED 03/26/17 21:00 GLUCOSE POC LAB TO COLLECT [POC] QIDACANDBED 03/27/17 07:30 GLUCOSE POC LAB TO COLLECT [POC] QIDACANDBED 03/27/17 11:30 GLUCOSE POC LAB TO COLLECT [POC] QIDACANDBED 03/27/17 16:30 GLUCOSE POC LAB TO COLLECT [POC] QIDACANDBED 03/27/17 21:00 GLUCOSE POC LAB TO COLLECT [POC] QIDACANDBED 03/28/17 07:30 GLUCOSE POC LAB TO COLLECT [POC] QIDACANDBED 03/28/17 11:30 GLUCOSE POC LAB TO COLLECT [POC] QIDACANDBED 03/28/17 16:30 GLUCOSE POC LAB TO COLLECT [POC] QIDACANDBED - Plan Plan:: ASSESSMENT AND PLAN CONGESTIVE HEART FAILURE WITH PRESERVED LEFT VENTRICULAR FUNCTION - increased shortness of breath over the past few days with documented weight gain of 10 pounds. Excellent diuresis since admission with improvement in shortness of breath -Bumex 3 mg by mouth twice a day -Strict 2 g sodium diet -Accurate I.'s and O.'s -Supplemental oxygen -Continue home medications COPD -no evidence of acute COPD exacerbation or significant underlying infection -Nebulizer therapy as needed -Continue outpatient medical regimen RIGHT LOWER QUADRANT ABDOMINAL PAIN-occurs intermittently, intense pain lasting a few minutes. Unrelated to activity, position, eating, or bowel movements. -CT scan of the abdomen with IV and oral contrast DIABTETS TYPE 2 -Levemir 40 units subcut bid -Novolog 12 units with meals -Sliding scale coverage; moderate dose -Continue metformin 850 mg by mouth twice a day CHRONIC PAIN - stable -Continue oral morphine MAINTENANCE ISSUES -Nutrition: Consistent carb diet -Dougherty catheter; not indicated -DVT: Lovenox 40 mg subcutaneous daily -GI; Protonix 40mg daily DISPOSITION; plan for discharge to home after her hospital stay PRIMARY CARE PROVIDER-Dr. Gonsalez
[2017-03-19] MEDS ORDERED: Iohexol 647 MG/ML 10 ML SDV PO ONE (11:26)
[2017-03-19] MEDS ORDERED: Sodium Chloride 0.9% 10 ML Syringe FLUSH PRN (12:29)
[2017-03-19] MEDS ORDERED: Iopamidol 612 MG/ML 150 ML Bottle IV SCH (12:30)
--- NOTE | 2017-03-19 13:21 | CT ---
Abdomen Pelvis w Cont Total DLP 1981 mGycm. INDICATION: Right lower quadrant abdominal pain COMPARISON: CT 06/05/2016. FINDINGS: Dependent atelectasis in the lung bases. Cholecystectomy. Diffuse fatty infiltration of the liver. Stable right renal cysts. Nonobstructive left renal calculi measuring up to 6 mm. Colonic div erticula but no evidence for acute diverticulitis. Hysterectomy. Benign vertebral hemangioma within T 11. Appendix not visualized. Rectus abdominis midline eventration. Exam otherwise unremarkable IMPRESSION: No acute findings in the abdomen or pelvis.
[2017-03-19] MEDS: Enoxaparin 40 MG/0.4 ML Syringe SUBCUT SCH (15:43)
[2017-03-19] MEDS: Ondansetron 4 MG/2 ML SDV IV PRN (17:14)
[2017-03-19] MEDS: Morphine 15 MG Tab PO PRN (17:17)
[2017-03-19] MEDS: ESCITALOPRAM PO SCH ×2 (21:25)
[2017-03-19] MEDS: traZODone 50 MG Tab PO SCH (21:26)
[2017-03-19] MEDS: Simvastatin 20 MG Tab PO SCH (21:26)
[2017-03-19] MEDS: ALPRAZolam 0.25 MG Tab PO PRN (21:26)
[2017-03-19] MEDS: Metoprolol Succinate 25 MG Tab.ER PO SCH (21:54)
--- NOTE | 2017-03-20 01:31 | PCM.SN ---
- Free Text/Narrative Note: time 2144; call from 2 N. nursing, low blood pressure 0; blood pressure 102/56 A; hypotension p; hold metoprolol evening dose. Continue present plan of care
[2017-03-20] MEDS: Albuterol/Ipratropium 3.0-0.5 MG/3 ML Neb Soln INH SCH ×2 (07:15→10:33)
[2017-03-20] MEDS: Formoterol/Mometasone 200-5 MCG 8.8 GM Inhaler IH SCH (07:16)
[2017-03-20 07:56] VITALS: BP 125/58
[2017-03-20] MEDS: Insulin Aspart 100 Units/ML 3 ML Pen SUBCUT SCH ×4 (07:57→11:33)
[2017-03-20] MEDS: Aspirin 81 MG Tab.Chew PO SCH (07:59)
[2017-03-20] MEDS: Isosorbide Mononitrate 30 MG Tab.ER PO SCH (07:59)
[2017-03-20] MEDS: Lactobacillus Rhamnosus GG (Probiotic) Cap PO SCH (08:00)
[2017-03-20] MEDS: Folic Acid 1 MG Tab PO SCH (08:00)
[2017-03-20] MEDS: Gabapentin 300 MG Cap PO SCH (08:00)
[2017-03-20] MEDS: Bumetanide 1 MG Tab PO SCH (08:01)
[2017-03-20] MEDS: Pantoprazole 40 MG Tab.CR PO SCH (08:01)
[2017-03-20] MEDS: Verapamil 180 MG Tab.ER PO SCH (08:01)
[2017-03-20] MEDS: Potassium Chloride 20 MEQ Tab.ER PO SCH (08:02)
[2017-03-20] MEDS: Spironolactone 25 MG Tab PO SCH (08:04)
[2017-03-20] MEDS: Insulin Detemir 100 Units/ML 3 ML Pen SUBCUT SCH (08:05)
[2017-03-20] MEDS: Magnesium Oxide 400 MG Tab PO SCH (08:06)
[2017-03-20] MEDS: Oxybutynin 5 MG Tab PO SCH (08:06)
[2017-03-20] MEDS: Lisinopril 20 MG Tab PO SCH (08:07)
[2017-03-20] MEDS: predniSONE 20 MG Tab PO SCH (08:07)
--- NOTE | 2017-03-20 11:47 | PCM.DCSUM1 ---
Discharge Summary - Hospital Course Brief History: Ms. Daniel is a 61-year-old woman who was admitted as a direct admission to observation status from the clinic because of increased shortness of breath and fluid overload. - Discharge Data Discharge Date: 03/20/17 Discharge Disposition: Home, Self-Care 01 Condition: Fair - Discharge Diagnosis/Problem(s) (1) Morbid obesity with BMI of 45.0-49.9, adult SNOMED Code(s): 367428981 ICD Code: E66.01 - MORBID (SEVERE) OBESITY DUE TO EXCESS CALORIES; Z68.42 - BODY MASS INDEX (BMI) 45.0-49.9, ADULT Status: Chronic Current Visit: No (2) (HFpEF) heart failure with preserved ejection fraction SNOMED Code(s): 14795094 ICD Code: I50.30 - UNSPECIFIED DIASTOLIC (CONGESTIVE) HEART FAILURE Status : Chronic Current Visit: No (3) Diabetes mellitus type 2 SNOMED Code(s): 01513926 ICD Code: E11.9 - TYPE 2 DIABETES MELLITUS WITHOUT COMPLICATIONS Status: Chronic Priority: High Current Visit: No - Patient Summary/Data Hospital Course: Ms. Daniel is a 61-year-old woman with a known history of congestive heart failure with preserved left ventricular function. She also has known underlying pulmonary disease secondary to her chronic rheumatoid arthritis. For a few days prior to admission she noted increased shortness of breath and also had documented a 10 pound weight gain at home. SHe was seen and evaluated in clinic and because of symptoms was referred for hospitalization. She was admitted to observation status and given IV diuretic therapy on the day of admission as well as the following morning. With this intervention she had a good diuresis, but continued to experience symptoms of shortness of breath. She also reported abdominal pain and because of need for more prolonged hospitalization than originally anticipated she was converted to inpatient status. CT scan of the abdomen with IV and oral contrast was obtained and showed no significant abnormalities. She was kept on a consistent carbohydrate diet as well as 2 g sodium diet while hospitalized, blood sugars were monitored regularly during hospitalization and remained for the most part within desired range. On discharge her dose of Bumex at home will be increased to 3 mg twice daily and she is encouraged to continue to follow a strict 2 g sodium diet. Activity will be as tolerated and she will be on a 2 g sodium consistent carbohydrate diet. Follow-up appointment will be scheduled with her primary care physician within one week. - Patient Instructions Diet: Low Sodium, Diabetic Diet Activity: As Tolerated Other/Special Instructions: Schedule follow-up appointment with Dr. Gonsalez within one week. - Discharge Plan Home Medications: Home Meds Albuterol [Ventolin HFA] 2 puff INH ASDIRECTED PRN 03/01/13 [History] Escitalopram [Lexapro] 30 mg PO BEDTIME 03/01/13 [History] Ipratropium/Albuterol Sulfate [Duoneb 0.5 MG-3 MG/3 ML] 3 ml INH QID 03/01/13 [ History] Metoprolol Succinate [Toprol XL] 25 mg PO BEDTIME 03/01/13 [History] Verapamil HCl [Verelan] 180 mg PO BIDAC 03/01/13 [History] Aspirin 81 mg PO DAILY 08/30/13 [History] Simvastatin [Zocor] 10 mg PO BEDTIME 08/30/13 [History] Magnesium Oxide 400 mg PO BID 09/01/13 [History] Lactobacillus Acidophilus [Probiotic] 1 cap PO BID 04/05/14 [History] Cyclobenzaprine [Flexeril] 10 mg PO TID PRN 09/27/14 [History] Folic Acid 1 mg PO DAILY 09/27/14 [History] metFORMIN [Glucophage] 850 mg PO BID 09/27/14 [History] Gabapentin [Neurontin] 300 mg PO BID 03/28/15 [History] Lisinopril 20 mg PO DAILY 03/28/15 [History] Oxybutynin [Oxybutynin ER] 10 mg PO DAILY 03/28/15 [History] Promethazine [Phenergan] 25 mg PO Q8H PRN 03/28/15 [History] traZODone 50 mg PO BEDTIME 03/28/15 [History] Potassium Chloride [Klor-Con M20] 20 meq PO BID #60 tab.er 07/29/15 [Rx] Cyanocobalamin (Vitamin B12) [Vitamin B12] 1,000 mcg IM Q30D 09/26/15 [History] Ergocalciferol (Vitamin D2) [Vitamin D2] 50,000 unit PO WEEKLY 09/26/15 [History ] Ferrous Sulfate 325 mg PO DAILY 09/26/15 [History] Fluticasone/Salmeterol [Advair Diskus 500-50] 1 puff INH BID 12/05/15 [History] azaTHIOprine [Azathioprine] 150 mg PO DAILY 12/05/15 [History] Isosorbide Mononitrate [Isosorbide Mononitrate ER] 30 mg PO DAILY 04/12/16 [ History] Insulin Aspart [NovoLOG] 12 unit SUBCUT TIDMEALS 06/05/16 [History] Pantoprazole [ProTONIX] 40 mg PO DAILY 07/13/16 [History] Insulin Detemir [Levemir Flextouch] 30 units SQ BID #300 ml 08/28/16 [Rx] Prednisone [IJD: predniSONE] 20 mg PO DAILY 10/28/16 [History] Spironolactone [Aldactone] 25 mg PO DAILY #30 tablet 12/27/16 [Rx] ALPRAZolam [Alprazolam] 0.25 mg PO ASDIRECTED PRN 02/22/17 [History] Morphine 15 mg PO Q4H PRN #10 tablet 02/25/17 [Rx] Bumetanide [Bumex] 3 mg PO BID #0 tablet 03/20/17 [Rx] - Patient Data Vitals - Most Recent: Last Vital Signs Temp 97.7 F 03/20/17 07:53 Pulse 85 03/20/17 10:33 Resp 16 03/20/17 07:53 BP 125/58 L 03/20/17 08:07 Pulse Ox 93 L 03/20/17 10:33 Weight - Most Recent: 303 lb 8 oz I&O - Last 24 hours: Intake & Output 03/19/17 03/20/17 03/20/17 22:59 06:59 14:59 Intake Total 400 480 Output Total 200 650 Balance 200 -170 Med Orders - Current: Current Medications Acetaminophen (Tylenol) 650 mg PO Q4H PRN PRN Reason: Pain (Mild 1-3)/fever Last Admin: 03/18/17 11:49 Dose: 650 mg Albuterol (Proventil Neb Soln) 2.5 mg NEB Q4H PRN PRN Reason: Shortness Of Breath/wheezing Albuterol/Ipratropium (Duoneb 3.0-0.5 Mg/3 Ml) 3 ml INH QIDRT OSMEL Last Admin: 03/20/17 10:33 Dose: 3 ml Alprazolam (Xanax) 0.25 mg PO Q4H PRN PRN Reason: Anxiety Last Admin: 03/19/17 21:26 Dose: 0.25 mg Aspirin (Aspirin) 81 mg PO DAILY [facility] Last Admin: 03/20/17 07:59 Dose: 81 mg Azathioprine (Imuran) 150 mg PO DAILY [facility] Last Admin: 03/20/17 08:04 Dose: 150 mg Bumetanide (Bumex) 3 mg PO BIDDIURETIC [facility] Last Admin: 03/20/17 08:01 Dose: 3 mg Cyclobenzaprine HCl (Flexeril) 10 mg PO TID PRN PRN Reason: Pain Dextrose (Glutose 15) 15 gm PO ONETIME PRN PRN Reason: Hypoglycemia Dextrose/Water (Dextrose 50% In Water) 50 ml IV ONETIME PRN PRN Reason: Hypoglycemia Docusate Sodium (Colace) 100 mg PO BID PRN PRN Reason: Constipation Enoxaparin Sodium (Lovenox) 40 mg SUBCUT Q24H [facility] Last Admin: 03/19/17 15:43 Dose: 40 mg Escitalopram Oxalate 10 mg/ (Escitalopram Oxalate 20 mg) 30 mg PO BEDTIME [facility] Last Admin: 03/19/17 21:25 Dose: 30 mg Folic Acid (Folic Acid) 1 mg PO DAILY [facility] Last Admin: 03/20/17 08:00 Dose: 1 mg Gabapentin (Neurontin) 300 mg PO BID [facility] Last Admin: 03/20/17 08:00 Dose: 300 mg Heparin Sodium (Porcine) (Heparin Lock Flush 100 Units/Ml) 500 units FLUSH ASDIRECTED PRN PRN Reason: line maintanence Last Admin: 03/19/17 17:15 Dose: 500 units Insulin Aspart (Novolog) 12 unit SUBCUT TIDMEALS [facility] Last Admin: 03/20/17 11:32 Dose: 12 units Insulin Aspart (Novolog) 0 unit SUBCUT QIDACANDBED [facility] PRN Reason: Protocol Last Admin: 03/20/17 11:33 Dose: 2 units Insulin Detemir (Levemir) 30 unit SUBCUT BID [facility] Last Admin: 03/20/17 08:05 Dose: 30 units Iopamidol (Isovue-300 (61%)) 150 ml IV . DIRECTED [facility] Last Admin: 03/19/17 12:53 Dose: 150 ml Isosorbide Mononitrate (Imdur) 30 mg PO DAILY [facility] Last Admin: 03/20/17 07:59 Dose: 30 mg Lactobacillus Rhamnosus (Culturelle) 1 cap PO BID [facility] Last Admin: 03/20/17 08:00 Dose: 1 cap Lisinopril (Prinivil) 20 mg PO DAILY [facility] Last Admin: 03/20/17 08:07 Dose: 20 mg Magnesium Hydroxide (Milk Of Magnesia) 30 ml PO Q12H PRN PRN Reason: Constipation Magnesium Oxide (Magnesium Oxide) 400 mg PO BID [facility] Last Admin: 03/20/17 08:06 Dose: 400 mg Metformin HCl (Glucophage) 850 mg PO BIDMEALS [facility] Last Admin: 03/20/17 08:02 Dose: 850 mg Metoprolol Succinate (Toprol Xl) 25 mg PO BEDTIME [facility] Last Admin: 03/19/17 21:54 Dose: Not Given Mometasone Furoate/Formoterol Fumar (Dulera 200-5 Mcg) 2 puff IH BIDRT [facility] Last Admin: 03/20/17 07:16 Dose: 2 puff Morphine Sulfate (Morphine) 15 mg PO Q4H PRN PRN Reason: Pain Last Admin: 03/19/17 17:17 Dose: 15 mg Ondansetron HCl (Zofran) 4 mg IV Q4H PRN PRN Reason: Nausea/Vomiting Last Admin: 03/19/17 17:14 Dose: 4 mg Oxybutynin Chloride (Oxybutynin) 5 mg PO BID [facility] Last Admin: 03/20/17 08:06 Dose: 5 mg Pantoprazole Sodium (Protonix) 40 mg PO ACBREAKFAST [facility] Last Admin: 03/20/17 08:01 Dose: 40 mg Polyethylene Glycol (Miralax) 17 gm PO DAILY PRN PRN Reason: Constipation Potassium Chloride (Klor-Con M20) 20 meq PO BIDMEALS [facility] Last Admin: 03/20/17 08:02 Dose: 20 meq Prednisone (Prednisone) 20 mg PO DAILY [facility] Last Admin: 03/20/17 08:07 Dose: 20 mg Simvastatin (Zocor) 10 mg PO BEDTIME [facility] Last Admin: 03/19/17 21:26 Dose: 10 mg Sodium Chloride (Saline Flush) 10 ml FLUSH ASDIRECTED PRN PRN Reason: Keep Vein Open Sodium Chloride (Saline Flush) 10 ml FLUSH ONETIME PRN PRN Reason: PER RADIOLOGY PROTOCOL Last Admin: 03/19/17 12:53 Dose: 10 ml Spironolactone (Aldactone) 25 mg PO DAILY [facility] Last Admin: 03/20/17 08:04 Dose: 25 mg Trazodone HCl (Trazodone) 50 mg PO BEDTIME [facility] Last Admin: 03/19/17 21:26 Dose: 50 mg Verapamil HCl (Calan Sr) 180 mg PO BIDAC [facility] Last Admin: 03/20/17 08:01 Dose: 180 mg Discontinued Medications Bumetanide (Bumex) 4 mg IVPUSH ONETIME ONE Stop: 03/17/17 14:31 Last Admin: 03/17/17 15:35 Dose: 4 mg Bumetanide (Bumex) 4 mg IVPUSH ONETIME ONE Stop: 03/18/17 06:31 Last Admin: 03/18/17 06:04 Dose: 4 mg Bumetanide (Bumex) 3 mg PO BIDDIURETIC [facility] Sodium Chloride (Normal Saline) 85 mls @ 3 mls/sec IV ONETIME ONE Stop: 03/19/17 12:30 Last Admin: 03/19/17 12:52 Dose: 3 mls/sec Iohexol (Omnipaque-300) 20 ml PO ONETIME ONE Stop: 03/19/17 11:27 Last Admin: 03/19/17 11:48 Dose: 20 ml *Q Meaningful Use (DIS) - VTE *Q VTE Criteria *Q: - Stroke *Q Stroke Criteria *Q: - AMI *Q AMI Criteria *Q:
[2017-03-20] MEDS: Ondansetron 4 MG/2 ML SDV IV PRN (12:04)
[2017-03-20] MEDS: Morphine 15 MG Tab PO PRN (12:04)
== END 2017-03-20 13:13 | disposition home or self-care (01) | DRG 194 ==
LOC: JP.MS 10:44 → OBSVTOIN 03-19 10:44
PROVIDERS: ADMIT Hospitalist; ATTEND Hospitalist
DX: I11.0 Hypertensive heart disease with heart failure (principal); I50.30 Unspecified diastolic (congestive) heart failure; J44.9 Chronic obstructive pulmonary disease, unspecified; Z99.81 Dependence on supplemental oxygen; E11.21 Type 2 diabetes mellitus with diabetic nephropathy; E11.40 Type 2 diabetes mellitus with diabetic neuropathy, unspecified; Z79.4 Long term (current) use of insulin; I95.9 Hypotension, unspecified; E66.01 Morbid (severe) obesity due to excess calories; Z68.42 Body mass index [BMI] 45.0-49.9, adult; R10.31 Right lower quadrant pain; Z87.891 Personal history of nicotine dependence; E53.8 Deficiency of other specified B group vitamins; F41.9 Anxiety disorder, unspecified; F32.9 Major depressive disorder, single episode, unspecified; M06.9 Rheumatoid arthritis, unspecified; M19.90 Unspecified osteoarthritis, unspecified site; M54.9 Dorsalgia, unspecified; G89.29 Other chronic pain; K21.9 Gastro-esophageal reflux disease without esophagitis; Z87.01 Personal history of pneumonia (recurrent); H54.7 Unspecified visual loss; Z79.82 Long term (current) use of aspirin; Z79.52 Long term (current) use of systemic steroids; Z88.1 Allergy status to other antibiotic agents; Z88.8 Allergy status to other drugs, medicaments and biological substances; Z96.659 Presence of unspecified artificial knee joint
CPT/HCPCS: 36415; 74177; 74177-26; 80048; 82962; 83735; 94640; 94640-76; 94664; 96372; 96374; 96375; 96376; A9270-GY; C1751; G0378; G0379; J1642; J1650; J2405; J7030; J7050; J7500; J7620; S0171

== ENCOUNTER 2017-03-23 12:17 | Inpatient (IN) | payer BC, MEDICAID ==
--- NOTE | 2017-03-23 14:25 | EDM.PDOC ---
ED HPI GENERAL MEDICAL PROBLEM - General Chief Complaint: General Stated Complaint: NOT FEELING WELL, FEVER Time Seen by Provider: 03/23/17 14:25 Source of Information: Reports: Patient History Limitations: Reports: No Limitations - History of Present Illness INITIAL COMMENTS - FREE TEXT/NARRATIVE: Patient presents today for complaints of fever, joint aching, muscle pain, worsening in neuropathy pain, feelings of weakness with occasional chest heaviness and SOB. She reports fever at home of 100.6 and 100.7. Dipti also reports decrease of appetite and food/drink not tasting good since recent hospital discharge. She denies abdominal pain, constipation or diarrhea. 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 She had a CT of her abdomen with IV/oral contrast (03/19/2017) and it was negative. She was given diuretics and discharged on 03/20/2017. Generalized Pain Score (Numeric/FACES): 8 - Related Data Allergies Allergy/AdvReac Type Severity Reaction Status Date / Time cephalexin monohydrate Allergy Unknown flusing Verified 03/23/17 13:59 [From Keflex] levofloxacin [Levofloxacin] Allergy Rash Verified 03/23/17 13:59 amoxicillin [Amoxicillin] AdvReac Vomiting Verified 03/23/17 13:59 amoxicillin trihydrate AdvReac Vomiting Verified 03/23/17 13:59 [From Augmentin] erythromycin base AdvReac Nausea and Verified 03/23/17 13:59 [Erythromycin Base] Vomiting potassium clavulanate AdvReac Vomiting Verified 03/23/17 13:59 [From Augmentin] Home Meds: Home Meds Albuterol [Ventolin HFA] 2 puff INH ASDIRECTED PRN 03/01/13 [History] Escitalopram [Lexapro] 30 mg PO BEDTIME 03/01/13 [History] Ipratropium/Albuterol Sulfate [Duoneb 0.5 MG-3 MG/3 ML] 3 ml INH QID 03/01/13 [ History] Metoprolol Succinate [Toprol XL] 25 mg PO BEDTIME 03/01/13 [History] Verapamil HCl [Verelan] 180 mg PO BIDAC 03/01/13 [History] Aspirin 81 mg PO DAILY 08/30/13 [History] Simvastatin [Zocor] 10 mg PO BEDTIME 08/30/13 [History] Magnesium Oxide 400 mg PO BID 09/01/13 [History] Lactobacillus Acidophilus [Probiotic] 1 cap PO BID 04/05/14 [History] Cyclobenzaprine [Flexeril] 10 mg PO TID PRN 09/27/14 [History] Folic Acid 1 mg PO DAILY 09/27/14 [History] metFORMIN [Glucophage] 850 mg PO BID 09/27/14 [History] Gabapentin [Neurontin] 300 mg PO BID 03/28/15 [History] Lisinopril 20 mg PO DAILY 03/28/15 [History] Oxybutynin [Oxybutynin ER] 10 mg PO DAILY 03/28/15 [History] Promethazine [Phenergan] 25 mg PO Q8H PRN 03/28/15 [History] traZODone 50 mg PO BEDTIME 03/28/15 [History] Potassium Chloride [Klor-Con M20] 20 meq PO BID #60 tab.er 07/29/15 [Rx] Cyanocobalamin (Vitamin B12) [Vitamin B12] 1,000 mcg IM Q30D 09/26/15 [History] Ergocalciferol (Vitamin D2) [Vitamin D2] 50,000 unit PO WEEKLY 09/26/15 [History ] Ferrous Sulfate 325 mg PO DAILY 09/26/15 [History] Fluticasone/Salmeterol [Advair Diskus 500-50] 1 puff INH BID 12/05/15 [History] azaTHIOprine [Azathioprine] 150 mg PO DAILY 12/05/15 [History] Isosorbide Mononitrate [Isosorbide Mononitrate ER] 30 mg PO DAILY 04/12/16 [ History] Insulin Aspart [NovoLOG] 12 unit SUBCUT TIDMEALS 06/05/16 [History] Pantoprazole [ProTONIX] 40 mg PO DAILY 07/13/16 [History] Insulin Detemir [Levemir Flextouch] 30 units SQ BID #300 ml 08/28/16 [Rx] Prednisone [IJD: predniSONE] 20 mg PO DAILY 10/28/16 [History] Spironolactone [Aldactone] 25 mg PO DAILY #30 tablet 12/27/16 [Rx] ALPRAZolam [Alprazolam] 0.25 mg PO ASDIRECTED PRN 02/22/17 [History] Morphine 15 mg PO Q4H PRN #10 tablet 02/25/17 [Rx] Bumetanide [Bumex] 3 mg PO BID #0 tablet 03/20/17 [Rx] Past Medical History HEENT History: Reports: Cataract, Impaired Vision Cardiovascular History: Reports: Angina, Heart Failure, Hypertension, SOB on Exertion, Other (See Below) Other Cardiovascular History: diastolic congestive heart failure Respiratory History: Reports: Asthma, Bronchitis, Recurrent, COPD, Pneumonia, Recurrent, SOB, Other (See Below) Other Respiratory History: Home 3l O2 and nebs Gastrointestinal History: Reports: Cholelithiasis, GERD, Other (See Below) Other Gastrointestinal History: history of bezoars Genitourinary History: Reports: Diabetic Nephropathy, Urinary Incontinence, Other (See Below) Other Genitourinary History: mass by bladder taken out in 2007 non cancer [employer]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: 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, , Spontaneous Musculoskeletal History: Reports: Back Pain, Chronic, Osteoarthritis, RA Neurological History: Reports: Neuropathy, Diabetic Psychiatric History: Reports: Anxiety, Depression, Panic Attack, Psych Hospitalization(s) Endocrine/Metabolic History: Reports: Diabetes, Type II, Obesity/BMI 30+, Osteoporosis Hematologic History: Reports: Anemia, B12 Deficiency Immunologic History: Reports: Immunosuppression, Other (See Below) Other Immunologic History: on medication that affects immunity Oncologic (Cancer) History: Reports: None Dermatologic History: Reports: Other (See Below) Other Dermatologic History: chronic sore left arm - Infectious Disease History Infectious Disease History: Reports: Chicken Pox, Helicobacter Pylori, Influenza , Measles, Mononucleosis, Mumps - Past Surgical History HEENT Surgical History: Reports: Cataract Surgery, Tonsillectomy Cardiovascular Surgical History: Reports: None Respiratory Surgical History: Reports: None GI Surgical History: Reports: Cholecystectomy, Colonoscopy, EGD Female Surgical History: Reports: Breast Biopsy, Hysterectomy, Tubal Ligation Endocrine Surgical History: Reports: None Neurological Surgical History: Reports: None Musculoskeletal Surgical History: Reports: Knee Replacement Oncologic Surgical History: Reports: None Dermatological Surgical History: Reports: None Social & Family History - Family History Family Medical History: Noncontributory HEENT: Reports: Cataract Cardiac: Reports: CAD Respiratory: Reports: Asthma : Reports: Other (See Below) Other Family History: mom kidney CA Musculoskeletal: Reports: Arthritis, RA Neurological: Reports: CVA, Seizure Endocrine/Metabolic: Reports: Diabetes, type II - Tobacco Use Smoking Status *Q: Never Smoker Years of Tobacco use: 15 Packs/Tins Daily: 2 Used Tobacco, but Quit: Yes Month Tobacco Last Used: 06/1979 Second Hand Smoke Exposure: No - Caffeine Use Caffeine Use: Reports: Coffee Other Caffeine Use: 3 bottles a day Caffeine Use Comment: 2-3 daily - Alcohol Use Days Per Week of Alcohol Use: 0 - Recreational Drug Use Recreational Drug Use: No - Living Situation & Occupation Living situation: Reports: , with Spouse, Other (Her son is her [employer] care provider) Occupation: Disabled ED ROS GENERAL - Review of Systems Review Of Systems: See Below Constitutional: Reports: Fever, Chills, Malaise, Weakness, Fatigue, Diaphoresis , Decreased Appetite HEENT: Denies: Dental Pain, Ear Discharge, Rhinitis, Sinus Problem, Throat Pain Respiratory: Reports: Shortness of Breath, Cough Cardiovascular: Reports: Chest Pain, Dyspnea on Exertion, Edema. Denies: Lightheadedness, Orthopnea, Palpitations, PND, Syncope Endocrine: Reports: No Symptoms GI/Abdominal: Reports: Nausea, Other (She also reports she had a hard time eating noodles 2 to 3 days ago with a feeling of them getting stuck in her throat. She also reports she was ablet o eat macaroni and cheese and mashed potatoes later inthe day and through the weekend without any swallowing difficulty or pain. ). Denies: Abdominal Pain, Constipation, Diarrhea, Vomiting : Denies: Flank Pain, Frequency, Hematuria, Incontinence, Urinary Retention Musculoskeletal: Reports: Joint Pain, Muscle Pain, Muscle Stiffness. Denies: Joint Swelling Skin: Denies: Bruising, Pruritis, Rash, Erythema, Wound Neurological: Denies: Confusion, Dizziness, Headache, Numbness, Tingling, Weakness Psychiatric: Reports: No Symptoms Hematologic/Lymphatic: Reports: No Symptoms Immunologic: Reports: No Symptoms ED EXAM, GENERAL - Physical Exam Exam: See Below Exam Limited By: No Limitations General Appearance: Alert, WD/WN, Moderate Distress, Other (slight diaphoresis, flushed face noted. Able to speak in full sentences. ) Eye Exam: Bilateral Eye: EOMI, Normal Inspection, PERRL Ears: Normal External Exam, Normal Canal, Hearing Grossly Normal, Normal TMs Ear Exam: Bilateral Ear: Auricle Normal, Canal Normal, TM normal Nose: Normal Inspection, Normal Mucosa, No Blood Throat/Mouth: Normal Inspection, Normal Lips, Normal Oropharynx, Normal Voice, No Airway Compromise, Other (mucus membranes dry. ) Head: Atraumatic, Normocephalic Neck: Normal Inspection, Supple, Non-Tender, Full Range of Motion. No: Lymphadenopathy (R), Lymphadenopathy (L) Respiratory/Chest: No Respiratory Distress, Lungs Clear, No Accessory Muscle Use , Chest Non-Tender, Decreased Breath Sounds, Other (Bilateral decreased breath sounds, no crackles, rales or rhonchi. ) Cardiovascular: Regular Rate, Rhythm, No Edema Peripheral Pulses: 1+: Radial (L), Radial (R), Dorsalis Pedis (L), Dorsalis Pedis (R) GI/Abdominal: Normal Bowel Sounds, Soft, Non-Tender, No Mass, Distended, Other ( large, obese) Back Exam: Normal Inspection, Full Range of Motion. No: CVA Tenderness (R), CVA Tenderness (L), Muscle Spasm, Paraspinal Tenderness, Vertebral Tenderness Extremities: Normal Range of Motion, Normal Capillary Refill, Pedal Edema, Other (trace pedal edema noted. ). No: Limited Range of Motion, Increased Warmth, Redness Neurological: Alert, Oriented, CN II-XII Intact, Normal Cognition, No Motor/ Sensory Deficits Psychiatric: Normal Affect, Normal Mood Skin Exam: Warm, Intact, Normal Color, No Rash, Other (slightly diaphoretic) Lymphatic: No Adenopathy EKG INTERPRETATION EKG Date: 03/23/17 (145) Rhythm: Other (Sinus tachycardia, rate 114) QRS: Normal ST-T: Normal QT: Normal Course - Vital Signs Last Recorded V/S: Last Vital Signs Temp 38.2 C H 03/23/17 14:08 Pulse 120 H 03/23/17 14:08 Resp 22 H 03/23/17 14:01 BP 115/51 L 03/23/17 14:08 Pulse Ox 91 L 03/23/17 14:08 - Orders/Labs/Meds Orders: Active Orders 24 hr Category Date Time Status EKG Documentation Completion [RC] ASDIRECTED Care 03/23/17 14:49 Active Telemetry Monitoring [Cardiac Monitoring] [RC] .As Care 03/23/17 14:50 Active Directed Chest 1V Frontal [CR] Stat Exams 03/23/17 15:47 Taken CULTURE URINE [RM] Stat Lab 03/23/17 15:50 Received Sodium Chloride 0.9% [Normal Saline] 1,000 ml Med 03/23/17 15:00 Active IV ASDIRECTED EKG 12 Lead [EK] Routine Ther 03/23/17 14:49 Ordered Medication Orders Sodium Chloride (Normal Saline) 1,000 mls @ 50 mls/hr IV ASDIRECTED OSMEL Last Admin: 03/23/17 15:15 Dose: 50 mls/hr Labs: Laboratory Tests 03/23/17 03/23/17 03/23/17 Range/Units 14:58 15:17 15:17 WBC 16.4 H (4.5-11.0) K/uL RBC 4.09 (3.30-5.50) M/uL Hgb 11.9 L (12.0-15.0) g/dL Hct 37.6 (36.0-48.0) % MCV 92 (80-98) fL MCH 29 (27-31) pg MCHC 32 (32-36) % Plt Count 293 (150-400) K/uL Add Manual Diff Yes Neutrophils % (Manual) 87 H (36-66) % Band Neutrophils % 1 L (5-11) % Lymphocytes % (Manual) 3 L (24-44) % Monocytes % (Manual) 3 (2-6) % Eosinophils % (Manual) 1 L (2-4) % Metamyelocytes % 2 % ESR (0-25) mm/hr Sodium 141 (140-148) mmol/L Potassium 5.1 (3.6-5.2) mmol/L Chloride 101 (100-108) mmol/L Carbon Dioxide 36 H (21-32) mmol/L Anion Gap 9.1 (5.0-14.0) mmol/L BUN 27 H (7-18) mg/dL Creatinine 1.3 H D (0.6-1.0) mg/dL Est Cr Clr Drug Dosing 41.47 mL/min Estimated GFR (MDRD) 41 L (>60) Glucose 189 H (74-106) mg/dL Lactic Acid (0.4-2.0) mmol/L Calcium 9.4 (8.5-10.1) mg/dL Total Bilirubin 0.3 (0.2-1.0) mg/dL AST 16 (15-37) U/L ALT 19 (12-78) U/L Alkaline Phosphatase 87 (46-116) U/L Troponin I (0.000-0.056) ng/mL C-Reactive Protein (0.0-0.3) mg/dL NT-Pro-B Natriuret Pep (5-125) pg/mL Total Protein 6.7 (6.4-8.2) g/dL Albumin 3.0 L (3.4-5.0) g/dL Globulin 3.7 H (2.3-3.5) g/dL Albumin/Globulin Ratio 0.8 L (1.2-2.2) Urine Color Yellow Urine Appearance Turbid Urine pH 5.0 (4.5-8.0) Ur Specific [place] 1.020 (1.008-1.030) Urine Protein 30 H (NEGATIVE) mg/dL Urine Glucose (UA) Normal (NEGATIVE) mg/dL Urine Ketones Negative (NEGATIVE) mg/dL Urine Occult Blood Large (NEGATIVE) Urine Nitrite Negative (NEGATIVE) Urine Bilirubin Small (NEGATIVE) Urine Urobilinogen Normal (NORMAL) mg/dL Ur Leukocyte Esterase Large (NEGATIVE) Urine RBC Semi-packed H (0-5) Urine WBC Packed H (0-5) Ur Epithelial Cells Moderate Amorphous Sediment Few Urine Bacteria Many Urine Mucus Few 03/23/17 03/23/17 03/23/17 Range/Units 15:17 15:17 15:17 WBC (4.5-11.0) K/uL RBC (3.30-5.50) M/uL Hgb (12.0-15.0) g/dL Hct (36.0-48.0) % MCV (80-98) fL MCH (27-31) pg MCHC (32-36) % Plt Count (150-400) K/uL Add Manual Diff Neutrophils % (Manual) (36-66) % Band Neutrophils % (5-11) % Lymphocytes % (Manual) (24-44) % Monocytes % (Manual) (2-6) % Eosinophils % (Manual) (2-4) % Metamyelocytes % % ESR 63 H (0-25) mm/hr Sodium (140-148) mmol/L Potassium (3.6-5.2) mmol/L Chloride (100-108) mmol/L Carbon Dioxide (21-32) mmol/L Anion Gap (5.0-14.0) mmol/L BUN (7-18) mg/dL Creatinine (0.6-1.0) mg/dL Est Cr Clr Drug Dosing mL/min Estimated GFR (MDRD) (>60) Glucose (74-106) mg/dL Lactic Acid 2.3 H (0.4-2.0) mmol/L Calcium (8.5-10.1) mg/dL Total Bilirubin (0.2-1.0) mg/dL AST (15-37) U/L ALT (12-78) U/L Alkaline Phosphatase (46-116) U/L Troponin I < 0.017 (0.000-0.056) ng/mL C-Reactive Protein 12.75 H (0.0-0.3) mg/dL NT-Pro-B Natriuret Pep 300 H (5-125) pg/mL Total Protein (6.4-8.2) g/dL Albumin (3.4-5.0) g/dL Globulin (2.3-3.5) g/dL Albumin/Globulin Ratio (1.2-2.2) Urine Color Urine Appearance Urine pH (4.5-8.0) Ur Specific [place] (1.008-1.030) Urine Protein (NEGATIVE) mg/dL Urine Glucose (UA) (NEGATIVE) mg/dL Urine Ketones (NEGATIVE) mg/dL Urine Occult Blood (NEGATIVE) Urine Nitrite (NEGATIVE) Urine Bilirubin (NEGATIVE) Urine Urobilinogen (NORMAL) mg/dL Ur Leukocyte Esterase (NEGATIVE) Urine RBC (0-5) Urine WBC (0-5) Ur Epithelial Cells Amorphous Sediment Urine Bacteria Urine Mucus Lab work completed at this time, reviewed. Influenza screen negative. WBC, CRP, ESR, Lactic acid elevated. UA positive for leukocytes, RBC, WBC, Bacteria. Meds: Medications Generic Name Dose Route Start Last Admin Trade Name Freq PRN Reason Stop Dose Admin Sodium Chloride 1,000 mls @ 50 mls/hr 03/23/17 15:00 03/23/17 15:15 Normal Saline IV 50 mls/hr ASDIRECTED OSMEL Administration - Radiology Interpretation Free Text/Narrative:: Portable chest x-ray wet read, no acute findings or changes when compared to recent views. Cardiomegaly note. Radiologist read pending. - Re-Assessments/Exams Free Text/Narrative Re-Assessment/Exam: 03/23/17 16:06 Patient lab work and status reviewed with Dipti Jennings will be admitted for acute UTI. Departure - Departure Time of Disposition: 16:08 Disposition: Admitted As Inpatient 64 Condition: Fair Clinical Impression: Urinary tract infection - Discharge Information Referrals: Arnulfo Gonsalez MD [Primary Care Provider] - Forms: ED Department Discharge - My Orders Last 24 Hours: My Active Orders 03/23/17 14:49 EKG Documentation Completion [RC] ASDIRECTED EKG 12 Lead [EK] Routine 03/23/17 14:50 Telemetry Monitoring [Cardiac Monitoring] [RC] .As Directed 03/23/17 15:00 Sodium Chloride 0.9% [Normal Saline] 1,000 ml IV ASDIRECTED 03/23/17 15:47 Chest 1V Frontal [CR] Stat 03/23/17 15:50 CULTURE URINE [RM] Stat - Assessment/Plan Last 24 Hours: My Active Orders 03/23/17 14:49 EKG Documentation Completion [RC] ASDIRECTED EKG 12 Lead [EK] Routine 03/23/17 14:50 Telemetry Monitoring [Cardiac Monitoring] [RC] .As Directed 03/23/17 15:00 Sodium Chloride 0.9% [Normal Saline] 1,000 ml IV ASDIRECTED 03/23/17 15:47 Chest 1V Frontal [CR] Stat 03/23/17 15:50 CULTURE URINE [RM] Stat
[2017-03-23] MEDS ORDERED: Sodium Chloride 0.9% 1,000 ML IV SCH ×3 (15:00→23:15)
[2017-03-23] MEDS ORDERED: Lactated Ringers 1,000 ML IV SCH (16:30)
[2017-03-23] MEDS ORDERED: cefTRIAXone 1 GM in Sodium Chloride 0.9% 50 ML IV SCH (16:30)
[2017-03-23] MEDS ORDERED: Docusate Sodium 100 MG Cap PO PRN (17:12)
[2017-03-23] MEDS ORDERED: Sodium Chloride 0.9% 10 ML Syringe FLUSH PRN (17:12)
[2017-03-23] MEDS ORDERED: Ondansetron 4 MG/2 ML SDV IV PRN (17:12)
[2017-03-23] MEDS ORDERED: Glucose Gel 15 GM in 37.5 GM Tube PO PRN (17:12)
[2017-03-23] MEDS ORDERED: Magnesium Hydroxide 400 MG/5 ML Susp 30 ML Cup PO PRN (17:12)
[2017-03-23] MEDS ORDERED: Albuterol 0.083% 2.5 MG/3 ML Neb Soln NEB PRN (17:12)
[2017-03-23] MEDS ORDERED: 50% Dextrose in Water 50 ML Syringe IV PRN (17:12)
[2017-03-23] MEDS ORDERED: Enoxaparin 40 MG/0.4 ML Syringe SUBCUT SCH (17:12)
[2017-03-23] MEDS ORDERED: Polyethylene Glycol 3350 Powder 17 GM Packet PO PRN (17:12)
--- NOTE | 2017-03-23 17:38 | PCM.HP ---
H&P History of Present Illness - General Date of Service: 03/23/17 Admit Problem/Dx: Source of Information: Patient, Family, Old Records, Provider, RN Notes Reviewed History Limitations: Reports: No Limitations - History of Present Illness Initial Comments - Free Text/Narative: Ms. Daniel is a 61-year-old woman who is admitted through the emergency department with urinary tract infection and early sepsis. She was just hospitalized at this facility earlier in the week with fluid overload and increasing shortness of breath. She was diuresed during her stay and discharged home 3 days ago. During the last hospital stay reported symptoms of right lower quadrant abdominal pain, CT scan of the abdomen was obtained showing no obvious abnormalities. Since discharge she has developed mild dysphasia with epigastric abdominal pain as well as progressive weakness with poor oral intake and weakness. She has had a low-grade temperature at home between 100-101F. On evaluation the emergency department urinalysis shows evidence of underlying infection, white blood cell count is elevated from baseline at 16,000, creatinine is elevated from baseline, and she has a modest elevation in lactic acid level. Tachycardia noted although she has had this in the past and also has had elevated white count although not to this degree, related to her underlying prednisone use. Shortness of breath and cough are not significantly different than what she experiences on a daily basis. Generalized Pain Score (Numeric/FACES): 8 - Related Data Allergies/Adverse Reactions: Allergies Allergy/AdvReac Type Severity Reaction Status Date / Time cephalexin monohydrate Allergy Unknown flusing Verified 03/23/17 13:59 [From Keflex] levofloxacin [Levofloxacin] Allergy Rash Verified 03/23/17 13:59 amoxicillin [Amoxicillin] AdvReac Vomiting Verified 03/23/17 13:59 amoxicillin trihydrate AdvReac Vomiting Verified 03/23/17 13:59 [From Augmentin] erythromycin base AdvReac Nausea and Verified 03/23/17 13:59 [Erythromycin Base] Vomiting potassium clavulanate AdvReac Vomiting Verified 03/23/17 13:59 [From Augmentin] Home Medications: Home Meds Albuterol [Ventolin HFA] 2 puff INH ASDIRECTED PRN 03/01/13 [History] Escitalopram [Lexapro] 30 mg PO BEDTIME 03/01/13 [History] Ipratropium/Albuterol Sulfate [Duoneb 0.5 MG-3 MG/3 ML] 3 ml INH QID 03/01/13 [ History] Metoprolol Succinate [Toprol XL] 25 mg PO BEDTIME 03/01/13 [History] Verapamil HCl [Verelan] 180 mg PO BIDAC 03/01/13 [History] Aspirin 81 mg PO DAILY 08/30/13 [History] Simvastatin [Zocor] 10 mg PO BEDTIME 08/30/13 [History] Magnesium Oxide 400 mg PO BID 09/01/13 [History] Lactobacillus Acidophilus [Probiotic] 1 cap PO BID 04/05/14 [History] Cyclobenzaprine [Flexeril] 10 mg PO TID PRN 09/27/14 [History] Folic Acid 1 mg PO DAILY 09/27/14 [History] metFORMIN [Glucophage] 850 mg PO BID 09/27/14 [History] Gabapentin [Neurontin] 300 mg PO BID 03/28/15 [History] Lisinopril 20 mg PO DAILY 03/28/15 [History] Oxybutynin [Oxybutynin ER] 10 mg PO DAILY 03/28/15 [History] Promethazine [Phenergan] 25 mg PO Q8H PRN 03/28/15 [History] traZODone 50 mg PO BEDTIME 03/28/15 [History] Potassium Chloride [Klor-Con M20] 20 meq PO BID #60 tab.er 07/29/15 [Rx] Cyanocobalamin (Vitamin B12) [Vitamin B12] 1,000 mcg IM Q30D 09/26/15 [History] Ergocalciferol (Vitamin D2) [Vitamin D2] 50,000 unit PO WEEKLY 09/26/15 [History ] Ferrous Sulfate 325 mg PO DAILY 09/26/15 [History] Fluticasone/Salmeterol [Advair Diskus 500-50] 1 puff INH BID 12/05/15 [History] azaTHIOprine [Azathioprine] 150 mg PO DAILY 12/05/15 [History] Isosorbide Mononitrate [Isosorbide Mononitrate ER] 30 mg PO DAILY 04/12/16 [ History] Insulin Aspart [NovoLOG] 12 unit SUBCUT TIDMEALS 06/05/16 [History] Pantoprazole [ProTONIX] 40 mg PO DAILY 07/13/16 [History] Insulin Detemir [Levemir Flextouch] 30 units SQ BID #300 ml 08/28/16 [Rx] Prednisone [IJD: predniSONE] 20 mg PO DAILY 10/28/16 [History] Spironolactone [Aldactone] 25 mg PO DAILY #30 tablet 12/27/16 [Rx] ALPRAZolam [Alprazolam] 0.25 mg PO ASDIRECTED PRN 02/22/17 [History] Morphine 15 mg PO Q4H PRN #10 tablet 02/25/17 [Rx] Bumetanide [Bumex] 3 mg PO BID #0 tablet 03/20/17 [Rx] Past Medical History HEENT History: Reports: Cataract, Impaired Vision Cardiovascular History: Reports: Angina, Heart Failure, Hypertension, SOB on Exertion, Other (See Below) Other Cardiovascular History: diastolic congestive heart failure Respiratory History: Reports: Asthma, Bronchitis, Recurrent, COPD, Pneumonia, Recurrent, SOB, Other (See Below) Other Respiratory History: Home 3l O2 and nebs Gastrointestinal History: Reports: Cholelithiasis, GERD, Other (See Below) Other Gastrointestinal History: history of bezoars Genitourinary History: Reports: Diabetic Nephropathy, Urinary Incontinence, Other (See Below) Other Genitourinary History: mass by bladder taken out in 2007 non cancer HEEL LIFT GOUGER History: Reports: PID, , Spontaneous Musculoskeletal History: Reports: Back Pain, Chronic, Osteoarthritis, RA Neurological History: Reports: Neuropathy, Diabetic Psychiatric History: Reports: Anxiety, Depression, Panic Attack, Psych Hospitalization(s) Endocrine/Metabolic History: Reports: Diabetes, Type II, Obesity/BMI 30+, Osteoporosis Hematologic History: Reports: Anemia, B12 Deficiency Immunologic History: Reports: Immunosuppression, Other (See Below) Other Immunologic History: on medication that affects immunity Oncologic (Cancer) History: Reports: None Dermatologic History: Reports: Other (See Below) Other Dermatologic History: chronic sore left arm - Infectious Disease History Infectious Disease History: Reports: Chicken Pox, Helicobacter Pylori, Influenza , Measles, Mononucleosis, Mumps - Past Surgical History HEENT Surgical History: Reports: Cataract Surgery, Tonsillectomy Cardiovascular Surgical History: Reports: None Respiratory Surgical History: Reports: None GI Surgical History: Reports: Cholecystectomy, Colonoscopy, EGD Female Surgical History: Reports: Breast Biopsy, Hysterectomy, Tubal Ligation Endocrine Surgical History: Reports: None Neurological Surgical History: Reports: None Musculoskeletal Surgical History: Reports: Knee Replacement Oncologic Surgical History: Reports: None Dermatological Surgical History: Reports: None Social & Family History - Family History Family Medical History: Noncontributory HEENT: Reports: Cataract Cardiac: Reports: CAD Respiratory: Reports: Asthma : Reports: Other (See Below) Other Family History: mom kidney CA Musculoskeletal: Reports: Arthritis, RA Neurological: Reports: CVA, Seizure Endocrine/Metabolic: Reports: Diabetes, type II - Tobacco Use Smoking Status *Q: Never Smoker Years of Tobacco use: 15 Packs/Tins Daily: 2 Used Tobacco, but Quit: Yes Month Tobacco Last Used: 06/1979 Second Hand Smoke Exposure: No - Caffeine Use Caffeine Use: Reports: Coffee Other Caffeine Use: 3 bottles a day Caffeine Use Comment: 2-3 daily - Alcohol Use Days Per Week of Alcohol Use: 0 - Recreational Drug Use Recreational Drug Use: No - Living Situation & Occupation Living situation: Reports: , with Spouse, Other (Her son is her [employer] care provider) Occupation: Disabled H&P Review of Systems - Review of Systems: Review Of Systems: See Below General: Reports: Fever, Chills, Weakness, Diaphoresis, Decreased Appetite HEENT: Reports: No Symptoms Pulmonary: Reports: Shortness of Breath, Cough, Sputum. Denies: Wheezing, Pleuritic Chest Pain, Hemoptysis Cardiovascular: Reports: No Symptoms Gastrointestinal: Reports: Abdominal Pain (Epigastric), Anorexia, Nausea. Denies: Black Stool, Bloody Stool, Constipation, Diarrhea, Difficulty Swallowing , Vomiting Genitourinary: Reports: No Symptoms Musculoskeletal: Reports: Joint Pain, Muscle Pain Skin: Reports: No Symptoms Psychiatric: Reports: No Symptoms Neurological: Reports: No Symptoms Hematologic/Lymphatic: Reports: No Symptoms Immunologic: Reports: No Symptoms Exam - Exam Exam: See Below - Vital Signs Vital Signs: Last Vital Signs Temp 100.8 F H 03/23/17 14:08 Pulse 113 H 03/23/17 16:30 Resp 20 03/23/17 16:30 BP 126/44 L 03/23/17 16:30 Pulse Ox 90 L 03/23/17 16:30 Weight: 295 lb - Exam Quality Assessment: Supplemental Oxygen, DVT Prophylaxis General: Alert, Oriented, Cooperative, Mild Distress HEENT: Conjunctiva Clear, Hearing Intact, Normal Nasal Septum, Posterior Pharynx Clear, Pupils Equal. No: Mucosa Moist & Marked Tree Neck: Supple, Trachea Midline, +2 Carotid Pulse wo Bruit Lungs: Decreased Breath Sounds. No: Crackles, Rales, Rhonchi, Rub, Wheezing Cardiovascular: Regular Rhythm, Normal S1, Normal S2, Tachycardia GI/Abdominal Exam: Normal Bowel Sounds, Soft, No Organomegaly, No Distention, Tender. No: Guarding, Rigid, Rebound Back Exam: Full Range of Motion, Paraspinal Tenderness. No: CVA Tenderness (R) , CVA Tenderness (L) Extremities: Non-Tender, No Pedal Edema Skin: Warm, Dry, Intact Neurological: Cranial Nerves Intact, Strength Equal Bilateral, Normal Speech, Normal Tone, Sensation Intact. No: Focal Deficit Neuro Extensive - Mental Status: Alert, Oriented x3, Normal Mood/Affect, Normal Cognition, Memory Intact - Patient Data Result Diagrams: 03/23/17 15:17 03/23/17 15:17 *Q Meaningful Use (ADM) - VTE *Q VTE Criteria *Q: - VTE Risk Assess *Q Each Risk Factor Represents 1 Point: Obesity ( BMI > 25 kg/m2), Congestive heart failure (CHF), Abnormal Pulmonary Function (COPD) Total Score 1 Point Risk Factors: 3 Each Risk Factor Represents 2 Points: Age 60 - 74 Years Total Score 2 Point Risk Factors: 2 Each Risk Factor Represents 3 Points: None Total Score 3 Point Risk Factors: 0 Each Risk Factor Represents 5 Points: None Total Score 5 Point Risk Factors: 0 Venous Thromboembolism Risk Factor Score *Q: 5 - Stroke *Q Stroke Criteria *Q: - AMI *Q AMI Criteria *Q: Problem List Initiated/Reviewed/Updated: Yes Orders Last 24hrs: Active Orders 24 hr Category Date Time Status Blood Glucose Check, Bedside [RC] QIDACANDBED Care 03/23/17 17:12 Active Communication Order [RC] STAT Care 03/23/17 17:12 Active Diabetes Education [RC] Click to Edit Care 03/23/17 17:12 Active Notify Provider Consults [RC] ASDIRECTED Care 03/23/17 17:12 Active Notify Provider [RC] PRN Care 03/23/17 17:12 Active Notify Provider [RC] PRN Care 03/23/17 17:12 Active Peripheral IV Care [RC] . DIRECTED Care 03/23/17 17:12 Active RT Aerosol Therapy [RC] ASDIRECTED Care 03/23/17 17:12 Active Consult to Physician [CONS] Routine Cons 03/23/17 17:12 Ordered Nothing per Oral After Midnight Diet [DIET] Diet 03/24/17 Breakfast Active BASIC METABOLIC PANEL,BMP [CHEM] AM Lab 03/24/17 05:11 Ordered CBC WITH AUTO DIFF [HEME] AM Lab 03/24/17 05:11 Ordered GLUCOSE POC LAB TO COLLECT [POC] QIDACANDBED Lab 03/23/17 21:00 Ordered GLUCOSE POC LAB TO COLLECT [POC] QIDACANDBED Lab 03/24/17 07:30 Ordered GLUCOSE POC LAB TO COLLECT [POC] QIDACANDBED Lab 03/24/17 11:30 Ordered GLUCOSE POC LAB TO COLLECT [POC] QIDACANDBED Lab 03/24/17 16:30 Ordered GLUCOSE POC LAB TO COLLECT [POC] QIDACANDBED Lab 03/24/17 21:00 Ordered GLUCOSE POC LAB TO COLLECT [POC] QIDACANDBED Lab 03/25/17 07:30 Ordered GLUCOSE POC LAB TO COLLECT [POC] QIDACANDBED Lab 03/25/17 11:30 Ordered GLUCOSE POC LAB TO COLLECT [POC] QIDACANDBED Lab 03/25/17 16:30 Ordered GLUCOSE POC LAB TO COLLECT [POC] QIDACANDBED Lab 03/25/17 21:00 Ordered GLUCOSE POC LAB TO COLLECT [POC] QIDACANDBED Lab 03/26/17 07:30 Ordered GLUCOSE POC LAB TO COLLECT [POC] QIDACANDBED Lab 03/26/17 11:30 Ordered GLUCOSE POC LAB TO COLLECT [POC] QIDACANDBED Lab 03/26/17 16:30 Ordered GLUCOSE POC LAB TO COLLECT [POC] QIDACANDBED Lab 03/26/17 21:00 Ordered GLUCOSE POC LAB TO COLLECT [POC] QIDACANDBED Lab 03/27/17 07:30 Ordered GLUCOSE POC LAB TO COLLECT [POC] QIDACANDBED Lab 03/27/17 11:30 Ordered GLUCOSE POC LAB TO COLLECT [POC] QIDACANDBED Lab 03/27/17 16:30 Ordered GLUCOSE POC LAB TO COLLECT [POC] QIDACANDBED Lab 03/27/17 21:00 Ordered GLUCOSE POC LAB TO COLLECT [POC] QIDACANDBED Lab 03/28/17 07:30 Ordered GLUCOSE POC LAB TO COLLECT [POC] QIDACANDBED Lab 03/28/17 11:30 Ordered GLUCOSE POC LAB TO COLLECT [POC] QIDACANDBED Lab 03/28/17 16:30 Ordered GLUCOSE POC LAB TO COLLECT [POC] QIDACANDBED Lab 03/28/17 21:00 Ordered GLUCOSE POC LAB TO COLLECT [POC] QIDACANDBED Lab 03/29/17 07:30 Ordered GLUCOSE POC LAB TO COLLECT [POC] QIDACANDBED Lab 03/29/17 11:30 Ordered GLUCOSE POC LAB TO COLLECT [POC] QIDACANDBED Lab 03/29/17 16:30 Ordered GLUCOSE POC LAB TO COLLECT [POC] QIDACANDBED Lab 03/29/17 21:00 Ordered GLUCOSE POC LAB TO COLLECT [POC] QIDACANDBED Lab 03/30/17 07:30 Ordered GLUCOSE POC LAB TO COLLECT [POC] QIDACANDBED Lab 03/30/17 11:30 Ordered GLUCOSE POC LAB TO COLLECT [POC] QIDACANDBED Lab 03/30/17 16:30 Ordered GLUCOSE POC LAB TO COLLECT [POC] QIDACANDBED Lab 03/30/17 21:00 Ordered GLUCOSE POC LAB TO COLLECT [POC] QIDACANDBED Lab 03/31/17 07:30 Ordered GLUCOSE POC LAB TO COLLECT [POC] QIDACANDBED Lab 03/31/17 11:30 Ordered GLUCOSE POC LAB TO COLLECT [POC] QIDACANDBED Lab 03/31/17 16:30 Ordered GLUCOSE POC LAB TO COLLECT [POC] QIDACANDBED Lab 03/31/17 21:00 Ordered GLUCOSE POC LAB TO COLLECT [POC] QIDACANDBED Lab 04/01/17 07:30 Ordered GLUCOSE POC LAB TO COLLECT [POC] QIDACANDBED Lab 04/01/17 11:30 Ordered GLUCOSE POC LAB TO COLLECT [POC] QIDACANDBED Lab 04/01/17 16:30 Ordered GLUCOSE POC LAB TO COLLECT [POC] QIDACANDBED Lab 04/01/17 21:00 Ordered GLUCOSE POC LAB TO COLLECT [POC] QIDACANDBED Lab 04/02/17 07:30 Ordered GLUCOSE POC LAB TO COLLECT [POC] QIDACANDBED Lab 04/02/17 11:30 Ordered GLUCOSE POC LAB TO COLLECT [POC] QIDACANDBED Lab 04/02/17 16:30 Ordered GLUCOSE POC LAB TO COLLECT [POC] QIDACANDBED Lab 04/02/17 21:00 Ordered GLUCOSE POC LAB TO COLLECT [POC] QIDACANDBED Lab 04/03/17 07:30 Ordered GLUCOSE POC LAB TO COLLECT [POC] QIDACANDBED Lab 04/03/17 11:30 Ordered GLUCOSE POC LAB TO COLLECT [POC] QIDACANDBED Lab 04/03/17 16:30 Ordered GLUCOSE POC LAB TO COLLECT [POC] QIDACANDBED Lab 04/03/17 21:00 Ordered GLUCOSE POC LAB TO COLLECT [POC] QIDACANDBED Lab 04/04/17 07:30 Ordered GLUCOSE POC LAB TO COLLECT [POC] QIDACANDBED Lab 04/04/17 11:30 Ordered GLUCOSE POC LAB TO COLLECT [POC] QIDACANDBED Lab 04/04/17 16:30 Ordered GLUCOSE POC LAB TO COLLECT [POC] QIDACANDBED Lab 04/04/17 21:00 Ordered GLUCOSE POC LAB TO COLLECT [POC] QIDACANDBED Lab 04/05/17 07:30 Ordered GLUCOSE POC LAB TO COLLECT [POC] QIDACANDBED Lab 04/05/17 11:30 Ordered GLUCOSE POC LAB TO COLLECT [POC] QIDACANDBED Lab 04/05/17 16:30 Ordered GLUCOSE POC LAB TO COLLECT [POC] QIDACANDBED Lab 04/05/17 21:00 Ordered GLUCOSE POC LAB TO COLLECT [POC] QIDACANDBED Lab 04/06/17 07:30 Ordered GLUCOSE POC LAB TO COLLECT [POC] QIDACANDBED Lab 04/06/17 11:30 Ordered GLUCOSE POC LAB TO COLLECT [POC] QIDACANDBED Lab 04/06/17 16:30 Ordered GLUCOSE POC LAB TO COLLECT [POC] QIDACANDBED Lab 04/06/17 21:00 Ordered GLUCOSE POC LAB TO COLLECT [POC] QIDACANDBED Lab 04/07/17 07:30 Ordered GLUCOSE POC LAB TO COLLECT [POC] QIDACANDBED Lab 04/07/17 11:30 Ordered GLUCOSE POC LAB TO COLLECT [POC] QIDACANDBED Lab 04/07/17 16:30 Ordered GLUCOSE POC LAB TO COLLECT [POC] QIDACANDBED Lab 04/07/17 21:00 Ordered GLUCOSE POC LAB TO COLLECT [POC] QIDACANDBED Lab 04/08/17 07:30 Ordered GLUCOSE POC LAB TO COLLECT [POC] QIDACANDBED Lab 04/08/17 11:30 Ordered GLUCOSE POC LAB TO COLLECT [POC] QIDACANDBED Lab 04/08/17 16:30 Ordered GLUCOSE POC LAB TO COLLECT [POC] QIDACANDBED Lab 04/08/17 21:00 Ordered GLUCOSE POC LAB TO COLLECT [POC] QIDACANDBED Lab 04/09/17 07:30 Ordered GLUCOSE POC LAB TO COLLECT [POC] QIDACANDBED Lab 04/09/17 11:30 Ordered GLUCOSE POC LAB TO COLLECT [POC] QIDACANDBED Lab 04/09/17 16:30 Ordered GLUCOSE POC LAB TO COLLECT [POC] QIDACANDBED Lab 04/09/17 21:00 Ordered GLUCOSE POC LAB TO COLLECT [POC] QIDACANDBED Lab 04/10/17 07:30 Ordered GLUCOSE POC LAB TO COLLECT [POC] QIDACANDBED Lab 04/10/17 11:30 Ordered GLUCOSE POC LAB TO COLLECT [POC] QIDACANDBED Lab 04/10/17 16:30 Ordered GLUCOSE POC LAB TO COLLECT [POC] QIDACANDBED Lab 04/10/17 21:00 Ordered GLUCOSE POC LAB TO COLLECT [POC] QIDACANDBED Lab 04/11/17 07:30 Ordered GLUCOSE POC LAB TO COLLECT [POC] QIDACANDBED Lab 04/11/17 11:30 Ordered GLUCOSE POC LAB TO COLLECT [POC] QIDACANDBED Lab 04/11/17 16:30 Ordered GLUCOSE POC LAB TO COLLECT [POC] QIDACANDBED Lab 04/11/17 21:00 Ordered GLUCOSE POC LAB TO COLLECT [POC] QIDACANDBED Lab 04/12/17 07:30 Ordered GLUCOSE POC LAB TO COLLECT [POC] QIDACANDBED Lab 04/12/17 11:30 Ordered GLUCOSE POC LAB TO COLLECT [POC] QIDACANDBED Lab 04/12/17 16:30 Ordered GLUCOSE POC LAB TO COLLECT [POC] QIDACANDBED Lab 04/12/17 21:00 Ordered GLUCOSE POC LAB TO COLLECT [POC] QIDACANDBED Lab 04/13/17 07:30 Ordered GLUCOSE POC LAB TO COLLECT [POC] QIDACANDBED Lab 04/13/17 11:30 Ordered GLUCOSE POC LAB TO COLLECT [POC] QIDACANDBED Lab 04/13/17 16:30 Ordered GLUCOSE POC LAB TO COLLECT [POC] QIDACANDBED Lab 04/13/17 21:00 Ordered GLUCOSE POC LAB TO COLLECT [POC] QIDACANDBED Lab 04/14/17 07:30 Ordered GLUCOSE POC LAB TO COLLECT [POC] QIDACANDBED Lab 04/14/17 11:30 Ordered GLUCOSE POC LAB TO COLLECT [POC] QIDACANDBED Lab 04/14/17 16:30 Ordered GLUCOSE POC LAB TO COLLECT [POC] QIDACANDBED Lab 04/14/17 21:00 Ordered GLUCOSE POC LAB TO COLLECT [POC] QIDACANDBED Lab 04/15/17 07:30 Ordered GLUCOSE POC LAB TO COLLECT [POC] QIDACANDBED Lab 04/15/17 11:30 Ordered GLUCOSE POC LAB TO COLLECT [POC] QIDACANDBED Lab 04/15/17 16:30 Ordered GLUCOSE POC LAB TO COLLECT [POC] QIDACANDBED Lab 04/15/17 21:00 Ordered GLUCOSE POC LAB TO COLLECT [POC] QIDACANDBED Lab 04/16/17 07:30 Ordered GLUCOSE POC LAB TO COLLECT [POC] QIDACANDBED Lab 04/16/17 11:30 Ordered GLUCOSE POC LAB TO COLLECT [POC] QIDACANDBED Lab 04/16/17 16:30 Ordered GLUCOSE POC LAB TO COLLECT [POC] QIDACANDBED Lab 04/16/17 21:00 Ordered GLUCOSE POC LAB TO COLLECT [POC] QIDACANDBED Lab 04/17/17 07:30 Ordered GLUCOSE POC LAB TO COLLECT [POC] QIDACANDBED Lab 04/17/17 11:30 Ordered LACTIC ACID [CHEM] Stat Lab 03/23/17 23:00 Ordered Acetaminophen [Tylenol] Med 03/23/17 17:12 Active 650 mg PO Q4H PRN Albuterol [Proventil Neb Soln] Med 03/23/17 17:12 Active 2.5 mg NEB Q4H PRN Dextrose 50% in Water Med 03/23/17 17:12 Active 50 ml IV ONETIME PRN Dextrose [Glutose 15] Med 03/23/17 17:12 Active 15 gm PO ONETIME PRN Dextrose [Glutose 15] Med 03/23/17 17:12 Active 15 gm PO ONETIME PRN Docusate Sodium [Colace] Med 03/23/17 17:12 Active 100 mg PO BID PRN Insulin Aspart [NovoLOG] Med 03/23/17 17:12 Active See Protocol SUBCUT QIDACANDBED Magnesium Hydroxide [Milk of Magnesia] Med 03/23/17 17:12 Active 30 ml PO Q12H PRN Ondansetron [Zofran] Med 03/23/17 17:12 Active 4 mg IV Q4H PRN Pantoprazole [ProTONIX IV] Med 03/23/17 17:12 Active 40 mg IV Q12H Polyethylene Glycol 3350 [MiraLAX] Med 03/23/17 17:12 Active 17 gm PO DAILY PRN Sodium Chloride 0.9% [Normal Saline] 1,000 ml Med 03/23/17 17:15 Active IV ASDIRECTED Sodium Chloride 0.9% [Normal Saline] 1,000 ml Med 03/23/17 23:15 Active IV ASDIRECTED Sodium Chloride 0.9% [Saline Flush] Med 03/23/17 17:12 Active 10 ml FLUSH ASDIRECTED PRN Peripheral IV Insertion Adult [OM.PC] Routine Oth 03/23/17 17:12 Ordered Medication Orders Acetaminophen (Tylenol) 650 mg PO Q4H PRN PRN Reason: Pain (Mild 1-3)/fever Albuterol (Proventil Neb Soln) 2.5 mg NEB Q4H PRN PRN Reason: Shortness Of Breath/wheezing Albuterol/Ipratropium (Duoneb 3.0-0.5 Mg/3 Ml) 3 ml INH QID [facility] Alprazolam (Xanax) 0.25 mg PO TID PRN PRN Reason: Anxiety Aspirin (Aspirin) 81 mg PO DAILY [facility] Azathioprine (Imuran) 150 mg PO DAILY [facility] Bumetanide (Bumex) 3 mg PO BID [facility] Cyclobenzaprine HCl (Flexeril) 10 mg PO TID PRN PRN Reason: Pain Dextrose (Glutose 15) 15 gm PO ONETIME PRN PRN Reason: Hypoglycemia Dextrose (Glutose 15) 15 gm PO ONETIME PRN PRN Reason: Hypoglycemia Dextrose/Water (Dextrose 50% In Water) 50 ml IV ONETIME PRN PRN Reason: Hypoglycemia Docusate Sodium (Colace) 100 mg PO BID PRN PRN Reason: Constipation Enoxaparin Sodium (Lovenox) 40 mg SUBCUT DAILY [facility] Escitalopram Oxalate (Lexapro) 30 mg PO BEDTIME [facility] Gabapentin (Neurontin) 300 mg PO BID [facility] Ceftriaxone Sodium 1 gm/ (Sodium Chloride) 50 mls @ 100 mls/hr IV Q24H [facility] Last Admin: 03/23/17 16:44 Dose: 100 mls/hr Lactated Ringer's (Ringers, Lactated) 1,000 mls @ 500 mls/hr IV ASDIRECTED [facility] Stop: 03/23/17 18:31 Last Admin: 03/23/17 16:43 Dose: 500 mls/hr Sodium Chloride (Normal Saline) 1,000 mls @ 250 mls/hr IV ASDIRECTED [facility] Stop: 03/23/17 23:16 Sodium Chloride (Normal Saline) 1,000 mls @ 125 mls/hr IV ASDIRECTED [facility] Insulin Aspart (Novolog) 12 unit SUBCUT TIDMEALS [facility] Insulin Aspart (Novolog) 0 unit SUBCUT QIDACANDBED [facility] PRN Reason: Protocol Insulin Detemir (Levemir) 30 unit SUBCUT BID [facility] Isosorbide Mononitrate (Imdur) 30 mg PO DAILY [facility] Lisinopril (Prinivil) 20 mg PO DAILY [facility] Magnesium Hydroxide (Milk Of Magnesia) 30 ml PO Q12H PRN PRN Reason: Constipation Magnesium Oxide (Magnesium Oxide) 400 mg PO BID [facility] Metoprolol Succinate (Toprol Xl) 25 mg PO BEDTIME [facility] Morphine Sulfate (Morphine) 15 mg PO Q4H PRN PRN Reason: Pain Non-Formulary Medication (Fluticasone/Salmeterol [Advair Diskus 500-50]) 1 puff INH BID [facility] Non-Formulary Medication (Lactobacillus Acidophilus [Probiotic]) 2 cap PO BID [facility] Non-Formulary Medication (Oxybutynin [Oxybutynin Er]) 10 mg PO DAILY [facility] Non-Formulary Medication (Simvastatin [Zocor]) 10 mg PO BEDTIME [facility] Non-Formulary Medication (Verapamil Hcl [Verelan]) 180 mg PO BIDAC [facility] Ondansetron HCl (Zofran) 4 mg IV Q4H PRN PRN Reason: Nausea/Vomiting Pantoprazole Sodium (Protonix Iv) 40 mg IV Q12H [facility] Polyethylene Glycol (Miralax) 17 gm PO DAILY PRN PRN Reason: Constipation Potassium Chloride (Klor-Con M20) 20 meq PO BID [facility] Prednisone (Prednisone) 20 mg PO DAILY [facility] Sodium Chloride (Saline Flush) 10 ml FLUSH ASDIRECTED PRN PRN Reason: Keep Vein Open Spironolactone (Aldactone) 25 mg PO DAILY [facility] Trazodone HCl (Trazodone) 50 mg PO BEDTIME [facility] Assessment/Plan Comment:: ASSESSMENT AND PLAN URINARY TRACT INFECTION WITH EARLY SEPSIS-evidence of infection on urinalysis, elevated white blood cell count from baseline with low-grade fever, mild elevation in lactic acid level, and sinus tachycardia. -IV fluids for management of dehydration and sepsis -Blood and urine cultures pending -Rocephin 1 g IV every 24 hours EPIGASTRIC ABDOMINAL PAIN-associated with nausea but no vomiting, recent decrease in oral intake. Past history of gastric bezoar. -Nothing by mouth after midnight -IV fluids for hydration as above -Protonix 40 mg IV every 12 hours -Consult Dr. Arteaga for EGD in a.m. 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 -Nicotine dependence; not required CODE STATUS-FULL CODE ADMISSION STATUS-patient will be admitted to inpatient status, expect at least a 2 night hospital stay for evaluation and management of problems as outlined above. At the time of this admission I do not reasonably expected evaluation and management of this problem will require more than a 96 hour hospital stay. DISPOSITION-anticipate discharge to home after the hospital stay. PRIMARY CARE PROVIDER-Dr. Gonsalez
[2017-03-23] MEDS: Morphine 15 MG Tab PO PRN (18:03)
[2017-03-23] MEDS: Insulin Aspart 100 Units/ML 3 ML Pen SUBCUT SCH ×3 (18:04→22:00)
[2017-03-23] MEDS: Pantoprazole 40 MG Vial IV SCH (18:05)
[2017-03-23] MEDS ORDERED: Simvastatin 20 MG Tab ONE (20:12)
[2017-03-23] MEDS ORDERED: Escitalopram 10 MG Tab ONE (20:12)
[2017-03-23] MEDS: Magnesium Oxide 400 MG Tab PO SCH (20:30)
[2017-03-23] MEDS: Gabapentin 300 MG Cap PO SCH (20:31)
[2017-03-23] MEDS: traZODone 50 MG Tab PO SCH (20:31)
[2017-03-23] MEDS: Metoprolol Succinate 25 MG Tab.ER PO SCH (20:35)
[2017-03-23] MEDS ORDERED: Non-Formulary Medication 1 Each (Fluticasone/Salmeterol [Advair Diskus 500-50] 1 PUFF) INH SCH (21:00)
[2017-03-23] MEDS ORDERED: LACTOBACILLUS ACIDOPHILUS PO SCH (21:00)
[2017-03-23] MEDS ORDERED: Escitalopram 20 MG Tab PO SCH (21:00)
[2017-03-23] MEDS ORDERED: Potassium Chloride 20 MEQ Tab.ER PO SCH (21:00)
[2017-03-23] MEDS ORDERED: Non-Formulary Medication 1 Each (Simvastatin [Zocor] 10 MG) PO SCH (21:00)
[2017-03-23] MEDS ORDERED: Bumetanide 1 MG Tab PO SCH (21:00)
[2017-03-23] MEDS: Albuterol/Ipratropium 3.0-0.5 MG/3 ML Neb Soln INH SCH (22:02)
[2017-03-23] MEDS: Insulin Detemir 100 Units/ML 3 ML Pen SUBCUT SCH (22:02)
[2017-03-23] MEDS: ALPRAZolam 0.25 MG Tab PO PRN (22:39)
[2017-03-23] MEDS: Acetaminophen 325 MG Tab PO PRN (22:39)
[2017-03-24] MEDS: Albuterol/Ipratropium 3.0-0.5 MG/3 ML Neb Soln INH SCH ×4 (05:27→20:32)
[2017-03-24] MEDS: Pantoprazole 40 MG Vial IV SCH (05:27)
[2017-03-24] MEDS ORDERED: Glycopyrrolate 0.2 MG/ML 2 ML SDV IVPUSH ONE (07:07)
[2017-03-24] MEDS ORDERED: Propofol 200 MG/20 ML SDV ONE (07:07)
[2017-03-24] MEDS ORDERED: fentaNYL 100 MCG/2 ML SDV ONE (07:07)
[2017-03-24] MEDS ORDERED: Midazolam 1 MG/ML 2 ML SDV ONE (07:08)
[2017-03-24] MEDS: ALPRAZolam 0.25 MG Tab PO PRN ×2 (07:29→22:06)
[2017-03-24] MEDS ORDERED: VERAPAMIL HCL 180 MG PO SCH (07:30)
--- NOTE | 2017-03-24 07:52 | PCM.CONS ---
H&P History of Present Illness - General Admit Problem/Dx: Dipti was hospitalized last week. She presented to the ED with reports of dysphagia and midepigastric abdominal pain Source of Information: Patient History Limitations: Reports: No Limitations - History of Present Illness Onset of Symptoms: Reports: Gradual Symptom Onset Date: 03/22/17 Duration of Symptoms: Reports: Day(s): Quality: Reports: Ache, Burning, Dull, Pressure Severity: Mild Improves with: Reports: Medication Worsens with: Reports: None Context: Reports: Other (appears weak ) Associated Symptoms: Reports: No Other Symptoms Generalized Pain Score (Numeric/FACES): 5 - Related Data Allergies/Adverse Reactions: Allergies Allergy/AdvReac Type Severity Reaction Status Date / Time cephalexin monohydrate Allergy Unknown flusing Verified 03/23/17 13:59 [From Keflex] levofloxacin [Levofloxacin] Allergy Rash Verified 03/23/17 13:59 amoxicillin [Amoxicillin] AdvReac Vomiting Verified 03/23/17 13:59 amoxicillin trihydrate AdvReac Vomiting Verified 03/23/17 13:59 [From Augmentin] erythromycin base AdvReac Nausea and Verified 03/23/17 13:59 [Erythromycin Base] Vomiting potassium clavulanate AdvReac Vomiting Verified 03/23/17 13:59 [From Augmentin] Home Medications: Home Meds Albuterol [Ventolin HFA] 2 puff INH ASDIRECTED PRN 03/01/13 [History] Escitalopram [Lexapro] 30 mg PO BEDTIME 03/01/13 [History] Ipratropium/Albuterol Sulfate [Duoneb 0.5 MG-3 MG/3 ML] 3 ml INH QID 03/01/13 [ History] Metoprolol Succinate [Toprol XL] 25 mg PO BEDTIME 03/01/13 [History] Verapamil HCl [Verelan] 180 mg PO BIDAC 03/01/13 [History] Aspirin 81 mg PO DAILY 08/30/13 [History] Simvastatin [Zocor] 10 mg PO BEDTIME 08/30/13 [History] Magnesium Oxide 400 mg PO BID 09/01/13 [History] Lactobacillus Acidophilus [Probiotic] 1 cap PO BID 04/05/14 [History] Cyclobenzaprine [Flexeril] 10 mg PO TID PRN 09/27/14 [History] Folic Acid 1 mg PO DAILY 09/27/14 [History] metFORMIN [Glucophage] 850 mg PO BID 09/27/14 [History] Gabapentin [Neurontin] 300 mg PO BID 03/28/15 [History] Lisinopril 20 mg PO DAILY 03/28/15 [History] Oxybutynin [Oxybutynin ER] 10 mg PO DAILY 03/28/15 [History] Promethazine [Phenergan] 25 mg PO Q8H PRN 03/28/15 [History] traZODone 50 mg PO BEDTIME 03/28/15 [History] Potassium Chloride [Klor-Con M20] 20 meq PO BID #60 tab.er 07/29/15 [Rx] Cyanocobalamin (Vitamin B12) [Vitamin B12] 1,000 mcg IM Q30D 09/26/15 [History] Ergocalciferol (Vitamin D2) [Vitamin D2] 50,000 unit PO WEEKLY 09/26/15 [History ] Ferrous Sulfate 325 mg PO DAILY 09/26/15 [History] Fluticasone/Salmeterol [Advair Diskus 500-50] 1 puff INH BID 12/05/15 [History] azaTHIOprine [Azathioprine] 150 mg PO DAILY 12/05/15 [History] Isosorbide Mononitrate [Isosorbide Mononitrate ER] 30 mg PO DAILY 04/12/16 [ History] Insulin Aspart [NovoLOG] 12 unit SUBCUT TIDMEALS 06/05/16 [History] Pantoprazole [ProTONIX] 40 mg PO DAILY 07/13/16 [History] Insulin Detemir [Levemir Flextouch] 30 units SQ BID #300 ml 08/28/16 [Rx] Prednisone [IJD: predniSONE] 20 mg PO DAILY 10/28/16 [History] Spironolactone [Aldactone] 25 mg PO DAILY #30 tablet 12/27/16 [Rx] ALPRAZolam [Alprazolam] 0.25 mg PO ASDIRECTED PRN 02/22/17 [History] Morphine 15 mg PO Q4H PRN #10 tablet 02/25/17 [Rx] Bumetanide [Bumex] 3 mg PO BID #0 tablet 03/20/17 [Rx] Past Medical History HEENT History: Reports: Cataract, Impaired Vision Cardiovascular History: Reports: Angina, Heart Failure, Hypertension, SOB on Exertion, Other (See Below) Other Cardiovascular History: diastolic congestive heart failure Respiratory History: Reports: Asthma, Bronchitis, Recurrent, COPD, Pneumonia, Recurrent, SOB, Other (See Below) Other Respiratory History: Home 3l O2 and nebs Gastrointestinal History: Reports: Cholelithiasis, GERD, Other (See Below) Other Gastrointestinal History: history of bezoars Genitourinary History: Reports: Diabetic Nephropathy, Urinary Incontinence, Other (See Below) Other Genitourinary History: mass by bladder taken out in 2007 non cancer 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, , 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 Musculoskeletal History: Reports: Back Pain, Chronic, Osteoarthritis, RA Neurological History: Reports: Neuropathy, Diabetic Psychiatric History: Reports: Anxiety, Depression, Panic Attack, Psych Hospitalization(s) Endocrine/Metabolic History: Reports: Diabetes, Type II, Obesity/BMI 30+, Osteoporosis Hematologic History: Reports: Anemia, B12 Deficiency Immunologic History: Reports: Immunosuppression, Other (See Below) Other Immunologic History: on medication that affects immunity Oncologic (Cancer) History: Reports: None Dermatologic History: Reports: Other (See Below) Other Dermatologic History: chronic sore left arm - Infectious Disease History Infectious Disease History: Reports: Chicken Pox, Helicobacter Pylori, Influenza , Measles, Mononucleosis, Mumps - Past Surgical History HEENT Surgical History: Reports: Cataract Surgery, Tonsillectomy Cardiovascular Surgical History: Reports: None Respiratory Surgical History: Reports: None GI Surgical History: Reports: Cholecystectomy, Colonoscopy, EGD Female Surgical History: Reports: Breast Biopsy, Hysterectomy, Tubal Ligation Endocrine Surgical History: Reports: None Neurological Surgical History: Reports: None Musculoskeletal Surgical History: Reports: Knee Replacement Oncologic Surgical History: Reports: None Dermatological Surgical History: Reports: None Social & Family History - Family History Family Medical History: Noncontributory HEENT: Reports: Cataract Cardiac: Reports: CAD Respiratory: Reports: Asthma : Reports: Other (See Below) Other Family History: mom kidney CA Musculoskeletal: Reports: Arthritis, RA Neurological: Reports: CVA, Seizure Endocrine/Metabolic: Reports: Diabetes, type II - Tobacco Use Smoking Status *Q: Never Smoker Years of Tobacco use: 15 Packs/Tins Daily: 2 Used Tobacco, but Quit: Yes Month Tobacco Last Used: 06/1979 Second Hand Smoke Exposure: No - Caffeine Use Caffeine Use: Reports: Coffee Other Caffeine Use: 3 bottles a day Caffeine Use Comment: 2-3 daily - Alcohol Use Days Per Week of Alcohol Use: 0 - Recreational Drug Use Recreational Drug Use: No - Living Situation & Occupation Living situation: Reports: , with Spouse, Other (Her son is 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 ), Weakness, Fatigue, Decreased Appetite HEENT: Reports: No Symptoms Pulmonary: Reports: No Symptoms Cardiovascular: Reports: Other (tachycardia) Gastrointestinal: Reports: Abdominal Pain Genitourinary: Reports: Other (Chronic kidney disease ) Musculoskeletal: Reports: Joint Pain, Muscle Pain Skin: Reports: No Symptoms Psychiatric: Reports: No Symptoms Neurological: Reports: No Symptoms Hematologic/Lymphatic: Reports: No Symptoms Immunologic: Reports: No Symptoms Exam - Exam Exam: See Below - Vital Signs Vital Signs: Last Vital Signs Temp 99.2 F 03/24/17 07:40 Pulse 94 03/24/17 07:40 Resp 18 03/24/17 07:40 BP 146/74 H 03/24/17 07:40 Pulse Ox 92 L 03/24/17 07:40 Weight: 296 lb - Exam General: Alert, Oriented, Cooperative HEENT: PERRLA Neck: Supple, Trachea Midline Lungs: Clear to Auscultation, Normal Respiratory Effort Cardiovascular: Regular Rate, Regular Rhythm GI/Abdominal Exam: Normal Bowel Sounds, Tender (mid epigastric area) (Female) Exam: Deferred Rectal (Female) Exam: Deferred Back Exam: Normal Inspection, Full Range of Motion Extremities: Normal Inspection, Pedal Edema (minimal) Skin: Warm, Dry, Intact Neurological: Cranial Nerves Intact, Reflexes Equal Bilateral Neuro Extensive - Mental Status: Alert, Oriented x3, Normal Mood/Affect Neuro Extensive - Motor, Sensory, Reflexes: CN II-XII Intact Psychiatric: Alert, Normal Affect, Normal Mood - Patient Data Lab Results Last 24 hrs: Laboratory Results - last 24 hr 03/23/17 03/24/17 03/24/17 Range/Units 23:20 05:30 05:30 WBC 14.7 H (4.5-11.0) K/uL RBC 3.99 (3.30-5.50) M/uL Hgb 11.3 L (12.0-15.0) g/dL Hct 37.0 (36.0-48.0) % MCV 93 (80-98) fL MCH 28 (27-31) pg MCHC 31 L (32-36) % Plt Count 290 (150-400) K/uL Neut % (Auto) 79 H (36-66) % Lymph % (Auto) 12 L (24-44) % [place] % (Auto) 9 H (2-6) % Eos % (Auto) 1 L (2-4) % Baso % (Auto) 0 (0-1) % Sodium 142 (140-148) mmol/L Potassium 4.3 (3.6-5.2) mmol/L Chloride 102 (100-108) mmol/L Carbon Dioxide 36 H (21-32) mmol/L Anion Gap 8.3 (5.0-14.0) mmol/L BUN 24 H (7-18) mg/dL Creatinine 1.2 H (0.6-1.0) mg/dL Est Cr Clr Drug Dosing 44.92 mL/min Estimated GFR (MDRD) 45 L (>60) Glucose 156 H (74-106) mg/dL Lactic Acid 1.9 (0.4-2.0) mmol/L Calcium 8.8 (8.5-10.1) mg/dL Result Diagrams: 03/25/17 04:45 03/25/17 04:45 Consult PN Assessment/Plan POD#: 0 Procedures: Procedures AIRWAY INHALATION TREATMENT (04/24/15) ASSAY OF AMYLASE (02/29/16) ASSAY OF LACTIC ACID (02/13/17) ASSAY OF LIPASE (02/29/16) ASSAY OF MAGNESIUM (02/29/16) ASSAY OF NATRIURETIC PEPTIDE (02/13/17) ASSAY OF SERUM ALBUMIN (04/11/15) ASSAY OF TROPONIN QUANT (11/25/16) ASSAY THYROID STIM HORMONE (02/29/16) BLOOD CULTURE FOR BACTERIA (02/29/16) BLOOD GASES ANY COMBINATION (06/27/16) BREATHING CAPACITY TEST (11/11/13) CHEST X-RAY 1 VIEW FRONTAL (11/25/16) CHEST X-RAY 2VW FRONTAL&LATL (06/27/16) CO/MEMBANE DIFFUSE CAPACITY (11/11/13) COMP SCREEN MAMMOGRAM ADD-ON (04/22/13) COMPLETE CBC AUTOMATED (04/11/15) COMPLETE CBC W/AUTO DIFF WBC (11/25/16) COMPREHEN METABOLIC PANEL (11/25/16) COMPUTER DX MAMMOGRAM ADD-ON (05/05/13) CREATINE MB FRACTION (05/01/16) CT ABD & PELV W/CONTRAST (11/21/15) CT ANGIOGRAPHY CHEST (03/14/15) CT HEAD/BRAIN W/O DYE (11/02/14) CT PELVIS W/DYE (04/26/13) CULTURE SCREEN ONLY (04/24/15) EGD BIOPSY SINGLE/MULTIPLE (04/24/15) ELECTROCARDIOGRAM TRACING (11/25/16) EMERGENCY DEPT VISIT (11/25/16) EMERGENCY DEPT VISIT (04/24/15) EMERGENCY DEPT VISIT (10/14/14) EMERGENCY DEPT VISIT (10/09/13) EMERGENCY DEPT VISIT (03/01/13) EVALUATION OF WHEEZING (04/07/13) EXTREMITY STUDY (11/30/15) FIBRIN DEGRADATION QUANT (11/30/15) GLUCOSE BLOOD TEST (06/27/16) HYDRATE IV INFUSION ADD-ON (07/19/16) HYDRATION IV INFUSION INIT (07/19/16) INFLUENZA A/B AG IA (04/05/14) INFLUENZA ASSAY W/OPTIC (07/19/16) METABOLIC PANEL TOTAL CA (04/11/15) PROTHROMBIN TIME (02/29/16) REAGENT STRIP/BLOOD GLUCOSE (01/02/14) ROUTINE VENIPUNCTURE (11/25/16) TEST FOR ACETONE/KETONES (04/24/15) THER/PROPH/DIAG INJ IV PUSH (11/25/16) THER/PROPH/DIAG INJ SC/IM (06/27/16) THER/PROPH/DIAG IV INF INIT (02/29/16) THROMBOPLASTIN TIME PARTIAL (01/02/14) TISSUE EXAM BY PATHOLOGIST (04/24/15) TX/PRO/DX INJ NEW DRUG ADDON (02/29/16) TX/PRO/DX INJ SAME DRUG DONOR SERVICES COORDINATOR (06/27/16) URINALYSIS AUTO W/SCOPE (06/27/16) US EXAM BREAST(S) (05/05/13) WITHDRAWAL OF ARTERIAL BLOOD (06/27/16) Problem List Initiated/Reviewed/Updated: Yes My Orders Last 24 Hours: My Active Orders Assessment/Plan: Mid Epigastric Abdominal Pain Plan EGD with possible biopsies scheduled for 03/24/17. Verify Patient Consent Obtain [RC] ASDIRECTED Thank you for this consultation Crys Sanders 03/24/17
[2017-03-24] MEDS ORDERED: predniSONE 20 MG Tab PO SCH (08:00)
[2017-03-24] MEDS: Formoterol/Mometasone 200-5 MCG 8.8 GM Inhaler IH SCH ×2 (08:24→20:32)
[2017-03-24] MEDS ORDERED: OXYBUTYNIN 10 MG PO SCH (09:00)
[2017-03-24] MEDS: Insulin Aspart 100 Units/ML 3 ML Pen SUBCUT SCH ×7 (09:18→22:05)
[2017-03-24] MEDS: Bumetanide 1 MG Tab PO SCH ×2 (09:19→14:35)
[2017-03-24] MEDS: Potassium Chloride 20 MEQ Tab.ER PO SCH ×2 (09:20→16:21)
[2017-03-24] MEDS: Lactobacillus Rhamnosus GG (Probiotic) Cap PO SCH ×2 (09:21→20:32)
[2017-03-24] MEDS: Spironolactone 25 MG Tab PO SCH (09:21)
[2017-03-24] MEDS: Aspirin 81 MG Tab.Chew PO SCH (09:21)
[2017-03-24] MEDS: Magnesium Oxide 400 MG Tab PO SCH ×2 (09:22→20:33)
[2017-03-24] MEDS: Oxybutynin 5 MG Tab PO SCH ×2 (09:22→20:33)
[2017-03-24] MEDS: Gabapentin 300 MG Cap PO SCH ×2 (09:22→20:32)
[2017-03-24] MEDS: Insulin Detemir 100 Units/ML 3 ML Pen SUBCUT SCH (09:23)
[2017-03-24] MEDS: Lactated Ringers 1,000 ML IV SCH ×2 (10:02→23:21)
[2017-03-24] MEDS: Sucralfate 1 GM Tab PO SCH ×3 (10:03→20:29)
[2017-03-24] MEDS: Isosorbide Mononitrate 30 MG Tab.ER PO SCH (10:04)
[2017-03-24] MEDS: Lisinopril 20 MG Tab PO SCH (10:04)
[2017-03-24] MEDS: Verapamil 180 MG Tab.ER PO SCH ×2 (10:05→16:20)
--- NOTE | 2017-03-24 10:23 | CR ---
Portable chest Comparison: February 22, 2017. There is a left central venous catheter with the tip descending down into the SVC. The heart and vasc ular structures are stable. There are no infiltrates or effusions. Impression: 1. Stable exam.
[2017-03-24] MEDS: Acetaminophen 325 MG Tab PO PRN ×2 (10:36→14:34)
--- NOTE | 2017-03-24 10:52 | PCM.PN ---
- General Info Date of Service: 03/24/17 Functional Status: Reports: Pain Controlled - Review of Systems General: Reports: Fever, Weakness Pulmonary: Denies: Shortness of Breath, Cough Gastrointestinal: Denies: Abdominal Pain Systems Review Comment:: No acute events overnight but fever greater than 102 this morning. Feels weak and hurts all over the place. Very fatigued. Not much of an appetite. EGD showed only mild gastritis. Urine culture is growing a gram-negative rods with identification pending. Blood sugars have been well-controlled so far. - Patient Data Vitals - Most Recent: Last Vital Signs Temp 39.0 C H 03/24/17 10:36 Pulse 108 H 03/24/17 10:30 Resp 20 03/24/17 10:30 BP 118/98 H 03/24/17 10:30 Pulse Ox 90 L 03/24/17 10:30 Weight - Most Recent: 134.263 kg I&O - Last 24 Hours: Intake & Output 03/23/17 03/24/17 03/24/17 22:59 06:59 14:59 Intake Total 2785 360 Output Total 350 950 400 Balance -350 1835 -40 Lab Results Last 24 Hours: Laboratory Results - last 24 hr 03/23/17 03/24/17 03/24/17 Range/Units 23:20 05:30 05:30 WBC 14.7 H (4.5-11.0) K/uL RBC 3.99 (3.30-5.50) M/uL Hgb 11.3 L (12.0-15.0) g/dL Hct 37.0 (36.0-48.0) % MCV 93 (80-98) fL MCH 28 (27-31) pg MCHC 31 L (32-36) % Plt Count 290 (150-400) K/uL Neut % (Auto) 79 H (36-66) % Lymph % (Auto) 12 L (24-44) % [place] % (Auto) 9 H (2-6) % Eos % (Auto) 1 L (2-4) % Baso % (Auto) 0 (0-1) % Sodium 142 (140-148) mmol/L Potassium 4.3 (3.6-5.2) mmol/L Chloride 102 (100-108) mmol/L Carbon Dioxide 36 H (21-32) mmol/L Anion Gap 8.3 (5.0-14.0) mmol/L BUN 24 H (7-18) mg/dL Creatinine 1.2 H (0.6-1.0) mg/dL Est Cr Clr Drug Dosing 44.92 mL/min Estimated GFR (MDRD) 45 L (>60) Glucose 156 H (74-106) mg/dL Lactic Acid 1.9 (0.4-2.0) mmol/L Calcium 8.8 (8.5-10.1) mg/dL Med Orders - Current: Current Medications Acetaminophen (Tylenol) 650 mg PO Q4H PRN PRN Reason: Pain (Mild 1-3)/fever Last Admin: 03/24/17 10:36 Dose: 650 mg Albuterol (Proventil Neb Soln) 2.5 mg NEB Q4H PRN PRN Reason: Shortness Of Breath/wheezing Albuterol/Ipratropium (Duoneb 3.0-0.5 Mg/3 Ml) 3 ml INH QIDRT [facility] Alprazolam (Xanax) 0.25 mg PO TID PRN PRN Reason: Anxiety Last Admin: 03/24/17 07:29 Dose: 0.25 mg Aspirin (Aspirin) 81 mg PO DAILY [facility] Last Admin: 03/24/17 09:21 Dose: 81 mg Azathioprine (Imuran) 150 mg PO DAILY [facility] Last Admin: 03/24/17 09:21 Dose: 150 mg Bumetanide (Bumex) 3 mg PO BIDDIURETIC [facility] Last Admin: 03/24/17 09:19 Dose: 3 mg Cyclobenzaprine HCl (Flexeril) 10 mg PO TID PRN PRN Reason: Pain Dextrose (Glutose 15) 15 gm PO ONETIME PRN PRN Reason: Hypoglycemia Dextrose/Water (Dextrose 50% In Water) 50 ml IV ONETIME PRN PRN Reason: Hypoglycemia Docusate Sodium (Colace) 100 mg PO BID PRN PRN Reason: Constipation Enoxaparin Sodium (Lovenox) 40 mg SUBCUT Q24H [facility] Escitalopram Oxalate 10 mg/ (Escitalopram Oxalate 20 mg) 30 mg PO BEDTIME [facility] Gabapentin (Neurontin) 300 mg PO BID [facility] Last Admin: 03/24/17 09:22 Dose: 300 mg Lactated Ringer's (Ringers, Lactated) 1,000 mls @ 75 mls/hr IV ASDIRECTED [facility] Last Admin: 03/24/17 10:02 Dose: 75 mls/hr Insulin Aspart (Novolog) 0 unit SUBCUT QIDACANDBED [facility] PRN Reason: Protocol Last Admin: 03/24/17 09:18 Dose: 2 units Isosorbide Mononitrate (Imdur) 30 mg PO DAILY [facility] Last Admin: 03/24/17 10:04 Dose: 30 mg Lactobacillus Rhamnosus (Culturelle) 2 cap PO BID [facility] Last Admin: 03/24/17 09:21 Dose: 2 cap Lisinopril (Prinivil) 20 mg PO DAILY [facility] Last Admin: 03/24/17 10:04 Dose: 20 mg Magnesium Hydroxide (Milk Of Magnesia) 30 ml PO Q12H PRN PRN Reason: Constipation Magnesium Oxide (Magnesium Oxide) 400 mg PO BID [facility] Last Admin: 03/24/17 09:22 Dose: 400 mg Metoprolol Succinate (Toprol Xl) 25 mg PO BEDTIME [facility] Last Admin: 03/23/17 20:35 Dose: 25 mg Mometasone Furoate/Formoterol Fumar (Dulera 200-5 Mcg) 1 puff IH BIDRT [facility] Last Admin: 03/24/17 08:24 Dose: Not Given Morphine Sulfate (Morphine) 15 mg PO Q4H PRN PRN Reason: Pain Last Admin: 03/23/17 18:03 Dose: 15 mg Ondansetron HCl (Zofran) 4 mg IV Q4H PRN PRN Reason: Nausea/Vomiting Last Admin: 03/23/17 18:05 Dose: 4 mg Oxybutynin Chloride (Oxybutynin) 5 mg PO BID [facility] Last Admin: 03/24/17 09:22 Dose: 5 mg Polyethylene Glycol (Miralax) 17 gm PO DAILY PRN PRN Reason: Constipation Potassium Chloride (Klor-Con M20) 20 meq PO BIDMEALS [facility] Last Admin: 03/24/17 09:20 Dose: 20 meq Simvastatin (Zocor) 10 mg PO BEDTIME [facility] Sodium Chloride (Saline Flush) 10 ml FLUSH ASDIRECTED PRN PRN Reason: Keep Vein Open Spironolactone (Aldactone) 25 mg PO DAILY [facility] Last Admin: 03/24/17 09:21 Dose: 25 mg Sucralfate (Carafate) 1 gm PO QIDACANDBED [facility] Last Admin: 03/24/17 10:03 Dose: 1 gm Trazodone HCl (Trazodone) 50 mg PO BEDTIME [facility] Last Admin: 03/23/17 20:31 Dose: 50 mg Verapamil HCl (Calan Sr) 180 mg PO BIDAC [facility] Last Admin: 03/24/17 10:05 Dose: 180 mg Discontinued Medications Albuterol/Ipratropium (Duoneb 3.0-0.5 Mg/3 Ml) 3 ml INH QID [facility] Last Admin: 03/24/17 05:27 Dose: 3 ml Bumetanide (Bumex) 3 mg PO BID [facility] Last Admin: 03/23/17 20:31 Dose: 3 mg Enoxaparin Sodium (Lovenox) 40 mg SUBCUT DAILY [facility] Last Admin: 03/23/17 18:05 Dose: 40 mg Escitalopram Oxalate (Lexapro) 30 mg PO BEDTIME [facility] Last Admin: 03/23/17 20:30 Dose: 30 mg Escitalopram Oxalate (Lexapro) Confirm Administered Dose 30 mg .ROUTE .STK-MED ONE Stop: 03/23/17 20:13 Last Admin: 03/23/17 20:36 Dose: Not Given Fentanyl (Sublimaze) Confirm Administered Dose 100 mcg .ROUTE .STK-MED ONE Stop: 03/24/17 07:08 Glycopyrrolate (Glycopyrrolate) 0.4 mg IVPUSH ONETIME ONE Stop: 03/24/17 07:08 Last Admin: 03/24/17 07:52 Dose: 0.4 mg Sodium Chloride (Normal Saline) 1,000 mls @ 50 mls/hr IV ASDIRECTED [facility] Last Admin: 03/23/17 15:15 Dose: 50 mls/hr Ceftriaxone Sodium 1 gm/ (Sodium Chloride) 50 mls @ 100 mls/hr IV Q24H [facility] Last Admin: 03/23/17 16:44 Dose: 100 mls/hr Lactated Ringer's (Ringers, Lactated) 1,000 mls @ 500 mls/hr IV ASDIRECTED [facility] Stop: 03/23/17 18:31 Last Admin: 03/23/17 16:43 Dose: 500 mls/hr Sodium Chloride (Normal Saline) 1,000 mls @ 250 mls/hr IV ASDIRECTED [facility] Stop: 03/23/17 23:16 Last Admin: 03/23/17 19:02 Dose: 250 mls/hr Sodium Chloride (Normal Saline) 1,000 mls @ 125 mls/hr IV ASDIRECTED [facility] Insulin Aspart (Novolog) 12 unit SUBCUT TIDMEALS [facility] Last Admin: 03/24/17 09:18 Dose: 12 units Insulin Detemir (Levemir) 30 unit SUBCUT BID [facility] Last Admin: 03/24/17 09:23 Dose: 30 units Midazolam HCl (Versed 1 Mg/Ml) Confirm Administered Dose 2 mg .ROUTE .STK-MED ONE Stop: 03/24/17 07:09 Non-Formulary Medication (Fluticasone/Salmeterol [Advair Diskus 500-50]) 1 puff INH BID [facility] Last Admin: 03/23/17 20:28 Dose: Not Given Non-Formulary Medication (Lactobacillus Acidophilus [Probiotic]) 2 cap PO BID [facility] Last Admin: 03/23/17 20:30 Dose: Not Given Non-Formulary Medication (Oxybutynin [Oxybutynin Er]) 10 mg PO DAILY [facility] Non-Formulary Medication (Simvastatin [Zocor]) 10 mg PO BEDTIME [facility] Last Admin: 03/23/17 20:31 Dose: 10 mg Pantoprazole Sodium (Protonix Iv) 40 mg IV Q12H [facility] Last Admin: 03/24/17 05:27 Dose: 40 mg Pantoprazole Sodium (Protonix Iv) 40 mg IV Q12H [facility] Potassium Chloride (Klor-Con M20) 20 meq PO BID [facility] Last Admin: 03/23/17 20:29 Dose: 20 meq Prednisone (Prednisone) 20 mg PO DAILY@0800 [facility] Last Admin: 03/24/17 09:20 Dose: 20 mg Propofol (Diprivan 20 Ml) Confirm Administered Dose 200 mg .ROUTE .STK-MED ONE Stop: 03/24/17 07:08 Simvastatin (Zocor) Confirm Administered Dose 20 mg .ROUTE .STK-MED ONE Stop: 03/23/17 20:13 Last Admin: 03/23/17 20:36 Dose: Not Given - Exam Quality Assessment: Supplemental Oxygen General: Alert, Oriented, Cooperative, Mild Distress Neck: Supple Lungs: Normal Respiratory Effort GI/Abdominal Exam: No Distention Extremities: No Pedal Edema Skin: Warm, Dry Psy/Mental Status: Alert, Normal Affect - Problem List Review Problem List Initiated/Reviewed/Updated: Yes - My Orders Last 24 Hours: My Active Orders 03/24/17 10:51 Insulin Aspart [NovoLOG] 16 unit SUBCUT TIDMEALS 03/24/17 11:00 Pantoprazole [ProTONIX] 40 mg PO BIDAC 03/24/17 12:00 cefTAZidime [Fortaz] 1 gm Sodium Chloride 0.9% [Normal Saline] 50 ml IV Q8HR 03/24/17 16:00 methylPREDNISolone Sod Succ [Solu-MEDROL] 62.5 mg IVPUSH Q8H 03/24/17 21:00 Insulin Detemir [Levemir] 35 unit SUBCUT BID 03/25/17 05:00 BASIC METABOLIC PANEL,BMP [CHEM] Timed CBC W/O DIFF,HEMOGRAM [HEME] Timed (1) - Plan Plan:: ASSESSMENT AND PLAN URINARY TRACT INFECTION WITH EARLY SEPSIS - urine culture with gram-negative michell but identification pending. Clinically seems a little better but is still mildly tachycardic. With ongoing high fever some going to add additional antibacterial coverage until her culture is final. She is on chronic steroids and could benefit from stress dosing. -IV fluids for management of dehydration and sepsis -Follow-up cultures -ceftazidime every 8 hours -Solu-Medrol for 24-48 hours EPIGASTRIC ABDOMINAL PAIN - associated with nausea but no vomiting, recent decrease in oral intake. Mild gastritis on EGD. Pain is a little better today. -Consistent carbohydrate diet -IV fluids for hydration as above -Twice daily PPI -Carafate per Dr. Arteaga ACUTE KIDNEY INJURY - likely secondary to dehydration and intravascular volume depletion. Kidney function slightly better today. -IV fluids as above -Closely monitor urine output and renal function TYPE 2 DIABETES MELLITUS - sugars well-controlled so far but will likely rise with Solu-Medrol. 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 -Resume diuretic therapy today -Continue out patient medical regimen MAINTENANCE ISSUES -DVT prophylaxis; Baez apparentsubcutaneous daily -GI prophylaxis; Protonix as above -Dougherty catheter; not indicated -Nutrition; 2 g sodium consistent carb diet DISPOSITION - anticipate discharge to home after the hospital stay. Saran Bolivar M.D.
[2017-03-24] MEDS: cefTAZidime 1 GM in Sodium Chloride 0.9% 50 ML IV SCH ×2 (12:13→20:29)
[2017-03-24] MEDS: Pantoprazole 40 MG Tab.CR PO SCH ×2 (12:14→16:28)
[2017-03-24] MEDS: Enoxaparin 40 MG/0.4 ML Syringe SUBCUT SCH (16:20)
[2017-03-24] MEDS: methylPREDNISolone Sodium Succinate 125 MG/2 ML SDV IVPUSH SCH ×2 (16:20→23:18)
[2017-03-24] MEDS ORDERED: Pantoprazole 40 MG Vial IV SCH (17:00)
[2017-03-24] MEDS: ESCITALOPRAM PO SCH ×2 (20:32)
[2017-03-24] MEDS: traZODone 50 MG Tab PO SCH (20:33)
[2017-03-24] MEDS: Simvastatin 20 MG Tab PO SCH (20:33)
[2017-03-24] MEDS ORDERED: Insulin Detemir 100 Units/ML 3 ML Pen SUBCUT SCH (21:00)
[2017-03-24] MEDS ORDERED: Insulin Aspart 100 Units/ML 3 ML Pen SUBCUT ONE (21:57)
[2017-03-25] MEDS: Morphine 15 MG Tab PO PRN ×3 (01:00→17:09)
--- NOTE | 2017-03-25 03:02 | PCM.SN ---
- Free Text/Narrative Note: Date 03/24/17 at 2153: Call from [facility] N. nursing requesting specialized dressing Assessment wound care Plan: order silver dressing as directed, continue present plan of care
--- NOTE | 2017-03-25 03:07 | PCM.SN ---
- Free Text/Narrative Note: Date 03/24/17 Call from [facility]. nursing at 2153: Blood glucose 487 assessment hyperglycemia Plan: Give NovoLog insulin 15 units subcut now, continue present plan of care Low blood pressure 100/55 Assessment hypertension management Plan hold metoprolol 25 mg XL evening dose, reassess in a.m.
[2017-03-25] MEDS: cefTAZidime 1 GM in Sodium Chloride 0.9% 50 ML IV SCH ×3 (03:09→19:21)
[2017-03-25] MEDS ORDERED: Insulin Aspart 100 Units/ML 3 ML Pen SUBCUT ONE ×4 (05:56→16:35)
[2017-03-25] MEDS: Sucralfate 1 GM Tab PO SCH ×4 (06:08→19:21)
[2017-03-25] MEDS: Formoterol/Mometasone 200-5 MCG 8.8 GM Inhaler IH SCH ×2 (07:18→21:01)
[2017-03-25] MEDS: Albuterol/Ipratropium 3.0-0.5 MG/3 ML Neb Soln INH SCH ×4 (07:18→21:01)
[2017-03-25] MEDS: Potassium Chloride 20 MEQ Tab.ER PO SCH ×2 (08:11→17:33)
[2017-03-25] MEDS: Magnesium Oxide 400 MG Tab PO SCH ×2 (08:11→21:03)
[2017-03-25] MEDS: Spironolactone 25 MG Tab PO SCH (08:12)
[2017-03-25] MEDS: Bumetanide 1 MG Tab PO SCH ×2 (08:12→13:11)
[2017-03-25] MEDS: Oxybutynin 5 MG Tab PO SCH ×2 (08:13→21:04)
[2017-03-25] MEDS: Isosorbide Mononitrate 30 MG Tab.ER PO SCH (08:13)
[2017-03-25] MEDS: Gabapentin 300 MG Cap PO SCH ×2 (08:14→21:01)
[2017-03-25] MEDS: Lactobacillus Rhamnosus GG (Probiotic) Cap PO SCH ×2 (08:14→21:01)
[2017-03-25] MEDS: Pantoprazole 40 MG Tab.CR PO SCH ×2 (08:15→17:32)
[2017-03-25] MEDS: Verapamil 180 MG Tab.ER PO SCH ×2 (08:15→17:31)
[2017-03-25] MEDS: Aspirin 81 MG Tab.Chew PO SCH (08:16)
[2017-03-25] MEDS: methylPREDNISolone Sodium Succinate 125 MG/2 ML SDV IVPUSH SCH ×2 (08:16→17:58)
[2017-03-25] MEDS: Lisinopril 20 MG Tab PO SCH (08:17)
[2017-03-25] MEDS: Insulin Aspart 100 Units/ML 3 ML Pen SUBCUT SCH ×7 (08:21→21:02)
[2017-03-25] MEDS ORDERED: Insulin Detemir 100 Units/ML 3 ML Pen SUBCUT SCH (09:00)
--- NOTE | 2017-03-25 09:37 | PN ---
DATE OF SERVICE: 03/25/2017 SUBJECTIVE: Dipti had a temperature max of 102.2. Vital signs otherwise are stable. She is on Carafate; states it does help with her heartburn and midepigastric abdominal pain. REVIEW OF SYSTEMS: HEENT: Negative. NECK: Negative. CHEST: No chest pain. LUNGS: Chronic shortness of breath, but she states it is very well controlled today. ABDOMEN: Denies pain. Urinating without difficulty. EXTREMITIES: Trace peripheral edema. NEURO: Intact. Remainder of review of systems negative for any pertinent positives and negatives. OBJECTIVE: GENERAL: Dipti Daniel is a pleasant 61-year-old female. She is alert and orientated. VITAL SIGNS: TPR is 96.6, 76, 16. Blood pressure 150/79. O2 saturations by pulse oximetry is 91%. HEENT: Negative. NECK: Supple. HEART: Regular rate and rhythm. LUNGS: Decreased breath sounds in the bases, otherwise clear. ABDOMEN: Soft and nontender. EXTREMITIES: With trace peripheral edema. SKIN: Without rash. PSYCHIATRIC: Mood and affect appropriate. NEURO: Intact. ASSESSMENT: Status post EGD, diagnosis gastritis. CLOtest pending. PLAN: Continue Carafate as directed. We will evaluate p.r.n. or in the a.m. Crys Fajardo PA-C /[id number]
--- NOTE | 2017-03-25 10:47 | PCM.PN ---
- General Info Date of Service: 03/25/17 - Review of Systems General: Reports: Fever (yesterday afternoon ) Pulmonary: Denies: Cough Cardiovascular: Reports: Chest Pain Gastrointestinal: Reports: Abdominal Pain Systems Review Comment:: No acute events overnight. Fever curve has improved. In general she is feeling better today but still feels weak and tired. Blood sugars did rise once the Solu -Medrol was initiated. They have not responded very well to supplemental insulin at this point. Minimal abdominal pain. No significant shortness of breath. Mild edema at this time. Urine culture growing Klebsiella. - Patient Data Vitals - Most Recent: Last Vital Signs Temp 37.1 C 03/25/17 07:00 Pulse 76 03/25/17 07:20 Resp 18 03/25/17 07:00 BP 144/79 H 03/25/17 08:17 Pulse Ox 91 L 03/25/17 07:00 Weight - Most Recent: 134.263 kg I&O - Last 24 Hours: Intake & Output 03/24/17 03/25/17 03/25/17 22:59 06:59 14:59 Intake Total 2343 360 Output Total 1999 1650 700 Balance -1999 693 -340 Lab Results Last 24 Hours: Laboratory Results - last 24 hr 03/25/17 03/25/17 03/25/17 Range/Units 04:45 04:45 07:45 WBC 12.6 H (4.5-11.0) K/uL RBC 3.79 (3.30-5.50) M/uL Hgb 10.7 L (12.0-15.0) g/dL Hct 34.5 L (36.0-48.0) % MCV 91 (80-98) fL MCH 28 (27-31) pg MCHC 31 L (32-36) % Plt Count 276 (150-400) K/uL Sodium 137 L (140-148) mmol/L Potassium 4.7 (3.6-5.2) mmol/L Chloride 98 L (100-108) mmol/L Carbon Dioxide 33 H (21-32) mmol/L Anion Gap 10.7 (5.0-14.0) mmol/L BUN 22 H (7-18) mg/dL Creatinine 1.2 H (0.6-1.0) mg/dL Est Cr Clr Drug Dosing 45.17 mL/min Estimated GFR (MDRD) 45 L (>60) Glucose 439 H* 465 H* (74-106) mg/dL Calcium 8.6 (8.5-10.1) mg/dL Frank Results Last 24 Hours: Microbiology 03/24/17 08:19 CLOtest - Final Stomach NEGATIVE CLOTEST Med Orders - Current: Current Medications Acetaminophen (Tylenol) 650 mg PO Q4H PRN PRN Reason: Pain (Mild 1-3)/fever Last Admin: 03/24/17 14:34 Dose: 650 mg Albuterol (Proventil Neb Soln) 2.5 mg NEB Q4H PRN PRN Reason: Shortness Of Breath/wheezing Albuterol/Ipratropium (Duoneb 3.0-0.5 Mg/3 Ml) 3 ml INH QIDRT [facility] Last Admin: 03/25/17 07:18 Dose: 3 ml Alprazolam (Xanax) 0.25 mg PO TID PRN PRN Reason: Anxiety Last Admin: 03/24/17 22:06 Dose: 0.25 mg Aspirin (Aspirin) 81 mg PO DAILY [facility] Last Admin: 03/25/17 08:16 Dose: 81 mg Azathioprine (Imuran) 150 mg PO DAILY [facility] Last Admin: 03/25/17 08:09 Dose: 150 mg Bumetanide (Bumex) 3 mg PO BIDDIURETIC [facility] Last Admin: 03/25/17 08:12 Dose: 3 mg Cyclobenzaprine HCl (Flexeril) 10 mg PO TID PRN PRN Reason: Pain Dextrose (Glutose 15) 15 gm PO ONETIME PRN PRN Reason: Hypoglycemia Dextrose/Water (Dextrose 50% In Water) 50 ml IV ONETIME PRN PRN Reason: Hypoglycemia Docusate Sodium (Colace) 100 mg PO BID PRN PRN Reason: Constipation Enoxaparin Sodium (Lovenox) 40 mg SUBCUT Q24H [facility] Last Admin: 03/24/17 16:20 Dose: 40 mg Escitalopram Oxalate 10 mg/ (Escitalopram Oxalate 20 mg) 30 mg PO BEDTIME [facility] Last Admin: 03/24/17 20:32 Dose: 30 mg Gabapentin (Neurontin) 300 mg PO BID [facility] Last Admin: 03/25/17 08:14 Dose: 300 mg Heparin Sodium (Porcine) (Heparin Lock Flush 100 Units/Ml) 500 units FLUSH ASDIRECTED PRN PRN Reason: Keep Vein Open Last Admin: 03/25/17 07:54 Dose: 500 units Lactated Ringer's (Ringers, Lactated) 1,000 mls @ 75 mls/hr IV ASDIRECTED [facility] Last Admin: 03/24/17 23:21 Dose: 75 mls/hr Ceftazidime 1 gm/ Sodium (Chloride) 50 mls @ 100 mls/hr IV Q8H [facility] Last Admin: 03/25/17 03:09 Dose: 100 mls/hr Insulin Aspart (Novolog) 16 unit SUBCUT TIDMEALS [facility] Last Admin: 03/25/17 08:21 Dose: 16 units Insulin Aspart (Novolog) 0 unit SUBCUT QIDACANDBED [facility] PRN Reason: Protocol Insulin Detemir (Levemir) 40 unit SUBCUT BID [facility] Last Admin: 03/25/17 09:18 Dose: 40 units Isosorbide Mononitrate (Imdur) 30 mg PO DAILY [facility] Last Admin: 03/25/17 08:13 Dose: 30 mg Lactobacillus Rhamnosus (Culturelle) 2 cap PO BID [facility] Last Admin: 03/25/17 08:14 Dose: 2 cap Lisinopril (Prinivil) 20 mg PO DAILY [facility] Last Admin: 03/25/17 08:17 Dose: 20 mg Magnesium Hydroxide (Milk Of Magnesia) 30 ml PO Q12H PRN PRN Reason: Constipation Magnesium Oxide (Magnesium Oxide) 400 mg PO BID [facility] Last Admin: 03/25/17 08:11 Dose: 400 mg Methylprednisolone Sodium Succinate (Solu-Medrol) 62.5 mg IVPUSH Q8H [facility] Last Admin: 03/25/17 08:16 Dose: 62.5 mg Metoprolol Succinate (Toprol Xl) 25 mg PO BEDTIME [facility] Last Admin: 03/23/17 20:35 Dose: 25 mg Mometasone Furoate/Formoterol Fumar (Dulera 200-5 Mcg) 2 puff IH BIDRT [facility] Morphine Sulfate (Morphine) 15 mg PO Q4H PRN PRN Reason: Pain Last Admin: 03/25/17 01:00 Dose: 15 mg Ondansetron HCl (Zofran) 4 mg IV Q4H PRN PRN Reason: Nausea/Vomiting Last Admin: 03/23/17 18:05 Dose: 4 mg Oxybutynin Chloride (Oxybutynin) 5 mg PO BID [facility] Last Admin: 03/25/17 08:13 Dose: 5 mg Pantoprazole Sodium (Protonix) 40 mg PO BIDAC [facility] Last Admin: 03/25/17 08:15 Dose: 40 mg Polyethylene Glycol (Miralax) 17 gm PO DAILY PRN PRN Reason: Constipation Potassium Chloride (Klor-Con M20) 20 meq PO BIDMEALS [facility] Last Admin: 03/25/17 08:11 Dose: 20 meq Simvastatin (Zocor) 10 mg PO BEDTIME [facility] Last Admin: 03/24/17 20:33 Dose: 10 mg Sodium Chloride (Saline Flush) 10 ml FLUSH ASDIRECTED PRN PRN Reason: Keep Vein Open Spironolactone (Aldactone) 25 mg PO DAILY [facility] Last Admin: 03/25/17 08:12 Dose: 25 mg Sucralfate (Carafate) 1 gm PO QIDACANDBED [facility] Last Admin: 03/25/17 06:08 Dose: 1 gm Trazodone HCl (Trazodone) 50 mg PO BEDTIME [facility] Last Admin: 03/24/17 20:33 Dose: 50 mg Verapamil HCl (Calan Sr) 180 mg PO BIDAC [facility] Last Admin: 03/25/17 08:15 Dose: 180 mg Discontinued Medications Albuterol/Ipratropium (Duoneb 3.0-0.5 Mg/3 Ml) 3 ml INH QID [facility] Last Admin: 03/24/17 05:27 Dose: 3 ml Bumetanide (Bumex) 3 mg PO BID [facility] Last Admin: 03/23/17 20:31 Dose: 3 mg Enoxaparin Sodium (Lovenox) 40 mg SUBCUT DAILY [facility] Last Admin: 03/23/17 18:05 Dose: 40 mg Escitalopram Oxalate (Lexapro) 30 mg PO BEDTIME [facility] Last Admin: 03/23/17 20:30 Dose: 30 mg Escitalopram Oxalate (Lexapro) Confirm Administered Dose 30 mg .ROUTE .STK-MED ONE Stop: 03/23/17 20:13 Last Admin: 03/23/17 20:36 Dose: Not Given Fentanyl (Sublimaze) Confirm Administered Dose 100 mcg .ROUTE .STK-MED ONE Stop: 03/24/17 07:08 Glycopyrrolate (Glycopyrrolate) 0.4 mg IVPUSH ONETIME ONE Stop: 03/24/17 07:08 Last Admin: 03/24/17 07:52 Dose: 0.4 mg Heparin Sodium (Porcine) (Heparin Lock Flush 100 Units/Ml) Confirm Administered Dose 500 units .ROUTE .STK-MED ONE Stop: 03/25/17 07:45 Last Admin: 03/25/17 08:02 Dose: Not Given Sodium Chloride (Normal Saline) 1,000 mls @ 50 mls/hr IV ASDIRECTED [facility] Last Admin: 03/23/17 15:15 Dose: 50 mls/hr Ceftriaxone Sodium 1 gm/ (Sodium Chloride) 50 mls @ 100 mls/hr IV Q24H [facility] Last Admin: 03/23/17 16:44 Dose: 100 mls/hr Lactated Ringer's (Ringers, Lactated) 1,000 mls @ 500 mls/hr IV ASDIRECTED [facility] Stop: 03/23/17 18:31 Last Admin: 03/23/17 16:43 Dose: 500 mls/hr Sodium Chloride (Normal Saline) 1,000 mls @ 250 mls/hr IV ASDIRECTED [facility] Stop: 03/23/17 23:16 Last Admin: 03/23/17 19:02 Dose: 250 mls/hr Sodium Chloride (Normal Saline) 1,000 mls @ 125 mls/hr IV ASDIRECTED [facility] Insulin Aspart (Novolog) 12 unit SUBCUT TIDMEALS [facility] Last Admin: 03/24/17 09:18 Dose: 12 units Insulin Aspart (Novolog) 0 unit SUBCUT QIDACANDBED [facility] PRN Reason: Protocol Last Admin: 03/25/17 10:46 Dose: Not Given Insulin Aspart (Novolog) 15 unit SUBCUT ONETIME ONE Stop: 03/24/17 21:58 Last Admin: 03/24/17 22:06 Dose: 15 units Insulin Aspart (Novolog) 12 unit SUBCUT ONETIME ONE Stop: 03/25/17 05:57 Last Admin: 03/25/17 06:07 Dose: 12 units Insulin Aspart (Novolog) 15 unit SUBCUT ONETIME ONE Stop: 03/25/17 08:31 Last Admin: 03/25/17 08:30 Dose: 15 units Insulin Detemir (Levemir) 30 unit SUBCUT BID [facility] Last Admin: 03/24/17 09:23 Dose: 30 units Insulin Detemir (Levemir) 35 unit SUBCUT BID [facility] Last Admin: 03/24/17 22:06 Dose: 35 units Midazolam HCl (Versed 1 Mg/Ml) Confirm Administered Dose 2 mg .ROUTE .STK-MED ONE Stop: 03/24/17 07:09 Mometasone Furoate/Formoterol Fumar (Dulera 200-5 Mcg) 1 puff IH BIDRT [facility] Last Admin: 03/25/17 07:18 Dose: 1 puff Non-Formulary Medication (Fluticasone/Salmeterol [Advair Diskus 500-50]) 1 puff INH BID [facility] Last Admin: 03/23/17 20:28 Dose: Not Given Non-Formulary Medication (Lactobacillus Acidophilus [Probiotic]) 2 cap PO BID [facility] Last Admin: 03/23/17 20:30 Dose: Not Given Non-Formulary Medication (Oxybutynin [Oxybutynin Er]) 10 mg PO DAILY [facility] Non-Formulary Medication (Simvastatin [Zocor]) 10 mg PO BEDTIME [facility] Last Admin: 03/23/17 20:31 Dose: 10 mg Pantoprazole Sodium (Protonix Iv) 40 mg IV Q12H [facility] Last Admin: 03/24/17 05:27 Dose: 40 mg Pantoprazole Sodium (Protonix Iv) 40 mg IV Q12H [facility] Potassium Chloride (Klor-Con M20) 20 meq PO BID [facility] Last Admin: 03/23/17 20:29 Dose: 20 meq Prednisone (Prednisone) 20 mg PO DAILY@0800 [facility] Last Admin: 03/24/17 09:20 Dose: 20 mg Propofol (Diprivan 20 Ml) Confirm Administered Dose 200 mg .ROUTE .STK-MED ONE Stop: 03/24/17 07:08 Simvastatin (Zocor) Confirm Administered Dose 20 mg .ROUTE .STK-MED ONE Stop: 03/23/17 20:13 Last Admin: 03/23/17 20:36 Dose: Not Given - Exam Quality Assessment: Supplemental Oxygen General: Alert, Oriented, Cooperative, No Acute Distress Neck: Supple Lungs: Clear to Auscultation, Normal Respiratory Effort Cardiovascular: Regular Rate, Regular Rhythm GI/Abdominal Exam: Soft, No Distention Extremities: Pedal Edema (mild bilateral foot edema). No: Increased Warmth Skin: Warm, Dry Psy/Mental Status: Alert, Normal Affect - Problem List Review Problem List Initiated/Reviewed/Updated: Yes - My Orders Last 24 Hours: My Active Orders 03/24/17 10:51 Insulin Aspart [NovoLOG] 16 unit SUBCUT TIDMEALS 03/24/17 11:00 Pantoprazole [ProTONIX] 40 mg PO BIDAC 03/24/17 12:00 cefTAZidime [Fortaz] 1 gm Sodium Chloride 0.9% [Normal Saline] 50 ml IV Q8H 03/24/17 16:00 methylPREDNISolone Sod Succ [Solu-MEDROL] 62.5 mg IVPUSH Q8H 03/25/17 07:51 Heparin Sodium [Heparin Lock Flush 100 Units/ML] 500 units FLUSH ASDIRECTED PRN 03/25/17 09:00 Insulin Detemir [Levemir] 40 unit SUBCUT BID 03/25/17 10:43 Convert IV to Saline Lock [OM.PC] Routine 03/25/17 11:00 Insulin Aspart [NovoLOG] See Protocol SUBCUT QIDACANDBED 03/26/17 05:00 BASIC METABOLIC PANEL,BMP [CHEM] Timed CBC W/O DIFF,HEMOGRAM [HEME] Timed (1) 03/26/17 07:30 predniSONE 20 mg PO WITHBREAKFAST - Plan Plan:: ASSESSMENT AND PLAN URINARY TRACT INFECTION WITH EARLY SEPSIS - urine culture growing Klebsiella which is sensitive to cephalosporins. Fever curve finally improving. Starting to show evidence for mild volume overload. -Saline lock IV -ceftazidime every 8 hours through the day today and transition to oral medications tomorrow EPIGASTRIC ABDOMINAL PAIN - associated with nausea but no vomiting, recent decrease in oral intake. Mild gastritis on EGD. Pain and appetite both better today. -Consistent carbohydrate diet -Twice daily PPI -Carafate per Dr. Arteaga TYPE 2 DIABETES MELLITUS - significant hyperglycemia with Solu-Medrol. Changing back to prednisone. 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 -Resume diuretic therapy today -Continue out patient medical regimen MAINTENANCE ISSUES -DVT prophylaxis; enoxaparin subcutaneous daily -GI prophylaxis; Protonix as above -Dougherty catheter; not indicated -Nutrition; 2 g sodium consistent carb diet DISPOSITION - anticipate discharge to home after the hospital stay. Saran Bolivar M.D.
[2017-03-25] MEDS: Enoxaparin 40 MG/0.4 ML Syringe SUBCUT SCH (17:31)
[2017-03-25] MEDS: Cyclobenzaprine 10 MG Tab PO PRN (19:22)
[2017-03-25] MEDS: traZODone 50 MG Tab PO SCH (21:01)
[2017-03-25] MEDS: Insulin Detemir 100 Units/ML 3 ML Pen SUBCUT SCH (21:02)
[2017-03-25] MEDS: Simvastatin 20 MG Tab PO SCH (21:04)
[2017-03-25] MEDS: Metoprolol Succinate 25 MG Tab.ER PO SCH (21:05)
[2017-03-25] MEDS: ESCITALOPRAM PO SCH ×2 (21:06)
[2017-03-25] MEDS: ALPRAZolam 0.25 MG Tab PO PRN (23:22)
[2017-03-26] MEDS: cefTAZidime 1 GM in Sodium Chloride 0.9% 50 ML IV SCH ×2 (03:08→13:09)
[2017-03-26] MEDS ORDERED: Ondansetron 4 MG Tab.DIS PO PRN (05:03)
[2017-03-26] MEDS: Cyclobenzaprine 10 MG Tab PO PRN (05:17)
[2017-03-26] MEDS ORDERED: Insulin Aspart 100 Units/ML 3 ML Pen SUBCUT STA (05:45)
--- NOTE | 2017-03-26 06:19 | PCM.SN ---
- Free Text/Narrative Note: call from [address] [place] [address] time [id number] blood glucose 490 a; hyperglycemia p; give Novolog 15 units subcut. continue with present plan of care
[2017-03-26] MEDS: Albuterol/Ipratropium 3.0-0.5 MG/3 ML Neb Soln INH SCH ×4 (07:06→21:27)
[2017-03-26] MEDS: Formoterol/Mometasone 200-5 MCG 8.8 GM Inhaler IH SCH ×2 (07:06→21:32)
[2017-03-26] MEDS: Insulin Aspart 100 Units/ML 3 ML Pen SUBCUT SCH ×7 (09:52→21:30)
[2017-03-26] MEDS: Insulin Detemir 100 Units/ML 3 ML Pen SUBCUT SCH ×2 (09:55→21:31)
[2017-03-26] MEDS: Bumetanide 1 MG Tab PO SCH ×2 (09:56→16:21)
[2017-03-26] MEDS: Sucralfate 1 GM Tab PO SCH ×4 (09:57→20:03)
[2017-03-26] MEDS: Pantoprazole 40 MG Tab.CR PO SCH ×2 (09:57→16:25)
[2017-03-26] MEDS: Verapamil 180 MG Tab.ER PO SCH ×2 (09:57→16:25)
[2017-03-26] MEDS: Lisinopril 20 MG Tab PO SCH (09:59)
[2017-03-26] MEDS: Lactobacillus Rhamnosus GG (Probiotic) Cap PO SCH ×2 (10:00→21:32)
[2017-03-26] MEDS: predniSONE 20 MG Tab PO SCH (10:00)
[2017-03-26] MEDS: Magnesium Oxide 400 MG Tab PO SCH ×2 (10:01→21:32)
[2017-03-26] MEDS: Gabapentin 300 MG Cap PO SCH ×2 (10:01→21:32)
[2017-03-26] MEDS: Aspirin 81 MG Tab.Chew PO SCH (10:01)
[2017-03-26] MEDS: Potassium Chloride 20 MEQ Tab.ER PO SCH ×2 (10:02→16:29)
[2017-03-26] MEDS: Spironolactone 25 MG Tab PO SCH (10:03)
[2017-03-26] MEDS: Isosorbide Mononitrate 30 MG Tab.ER PO SCH (10:03)
[2017-03-26] MEDS: Oxybutynin 5 MG Tab PO SCH ×2 (10:05→21:32)
[2017-03-26] MEDS ORDERED: Insulin Aspart 100 Units/ML 3 ML Pen SUBCUT ONE (11:37)
--- NOTE | 2017-03-26 14:37 | PCM.PN ---
- General Info Date of Service: 03/26/17 Functional Status: Reports: Pain Controlled, Tolerating Diet, Ambulating - Review of Systems General: Denies: Fever Gastrointestinal: Denies: Abdominal Pain Systems Review Comment:: No acute events overnight other than significantly elevated blood sugars. Neck pain is better today after a couple doses of muscle relaxer. No significant cough or shortness of breath beyond baseline. No edema. No abdominal pain or fevers. Tolerating current antibiotics. - Patient Data Vitals - Most Recent: Last Vital Signs Temp 36.5 C 03/26/17 14:28 Pulse 75 03/26/17 14:33 Resp 18 03/26/17 14:28 BP 110/63 03/26/17 14:28 Pulse Ox 94 L 03/26/17 14:28 Weight - Most Recent: 137.665 kg I&O - Last 24 Hours: Intake & Output 03/25/17 03/26/17 03/26/17 22:59 06:59 14:59 Intake Total 655 795 240 Output Total 700 400 900 Balance -45 395 -660 Lab Results Last 24 Hours: Laboratory Results - last 24 hr 03/26/17 03/26/17 Range/Units 05:00 05:00 WBC 12.7 H (4.5-11.0) K/uL RBC 3.48 (3.30-5.50) M/uL Hgb 9.8 L (12.0-15.0) g/dL Hct 32.2 L (36.0-48.0) % MCV 93 (80-98) fL MCH 28 (27-31) pg MCHC 30 L (32-36) % Plt Count 298 (150-400) K/uL Sodium 139 L (140-148) mmol/L Potassium 4.8 (3.6-5.2) mmol/L Chloride 101 (100-108) mmol/L Carbon Dioxide 35 H (21-32) mmol/L Anion Gap 7.8 (5.0-14.0) mmol/L BUN 23 H (7-18) mg/dL Creatinine 1.2 H (0.6-1.0) mg/dL Est Cr Clr Drug Dosing 45.17 mL/min Estimated GFR (MDRD) 45 L (>60) Glucose 490 H* (74-106) mg/dL Calcium 8.5 (8.5-10.1) mg/dL Med Orders - Current: Current Medications Acetaminophen (Tylenol) 650 mg PO Q4H PRN PRN Reason: Pain (Mild 1-3)/fever Last Admin: 03/24/17 14:34 Dose: 650 mg Albuterol (Proventil Neb Soln) 2.5 mg NEB Q4H PRN PRN Reason: Shortness Of Breath/wheezing Albuterol/Ipratropium (Duoneb 3.0-0.5 Mg/3 Ml) 3 ml INH QIDRT COUNTS INCLUDE 234 BEDS AT THE [facility] Last Admin: 03/26/17 14:33 Dose: 3 ml Alprazolam (Xanax) 0.25 mg PO TID PRN PRN Reason: Anxiety Last Admin: 03/25/17 23:22 Dose: 0.25 mg Aspirin (Aspirin) 81 mg PO DAILY COUNTS INCLUDE 234 BEDS AT THE [facility] Last Admin: 03/26/17 10:01 Dose: 81 mg Azathioprine (Imuran) 150 mg PO DAILY COUNTS INCLUDE 234 BEDS AT THE [facility] Last Admin: 03/26/17 10:04 Dose: 150 mg Bumetanide (Bumex) 3 mg PO BIDDIURETIC COUNTS INCLUDE 234 BEDS AT THE [facility] Last Admin: 03/26/17 09:56 Dose: 3 mg Cefdinir (Omnicef) 300 mg PO BID COUNTS INCLUDE 234 BEDS AT THE [facility] Cyclobenzaprine HCl (Flexeril) 10 mg PO TID PRN PRN Reason: Pain Last Admin: 03/26/17 05:17 Dose: 10 mg Dextrose (Glutose 15) 15 gm PO ONETIME PRN PRN Reason: Hypoglycemia Dextrose/Water (Dextrose 50% In Water) 50 ml IV ONETIME PRN PRN Reason: Hypoglycemia Docusate Sodium (Colace) 100 mg PO BID PRN PRN Reason: Constipation Enoxaparin Sodium (Lovenox) 40 mg SUBCUT Q24H COUNTS INCLUDE 234 BEDS AT [facility] Last Admin: 03/25/17 17:31 Dose: 40 mg Escitalopram Oxalate 10 mg/ (Escitalopram Oxalate 20 mg) 30 mg PO BEDTIME COUNTS INCLUDE 234 BEDS AT [facility] Last Admin: 03/25/17 21:06 Dose: 30 mg Gabapentin (Neurontin) 300 mg PO BID COUNTS INCLUDE 234 BEDS AT [facility] Last Admin: 03/26/17 10:01 Dose: 300 mg Heparin Sodium (Porcine) (Heparin Lock Flush 100 Units/Ml) 500 units FLUSH ASDIRECTED PRN PRN Reason: Keep Vein Open Last Admin: 03/26/17 04:57 Dose: 500 units Ceftazidime 1 gm/ Sodium (Chloride) 50 mls @ 100 mls/hr IV Q8H COUNTS INCLUDE 234 BEDS AT THE [facility] Stop: 03/26/17 16:00 Last Admin: 03/26/17 13:09 Dose: 100 mls/hr Insulin Aspart (Novolog) 16 unit SUBCUT TIDMEALS COUNTS INCLUDE 234 BEDS AT [facility] Last Admin: 03/26/17 09:52 Dose: 16 units Insulin Aspart (Novolog) 0 unit SUBCUT QIDACANDBED COUNTS INCLUDE 234 BEDS AT THE [facility] PRN Reason: Protocol Last Admin: 03/26/17 09:53 Dose: 14 units Insulin Detemir (Levemir) 30 unit SUBCUT BID COUNTS INCLUDE 234 BEDS AT [facility] Isosorbide Mononitrate (Imdur) 30 mg PO DAILY COUNTS INCLUDE 234 BEDS AT [facility] Last Admin: 03/26/17 10:03 Dose: 30 mg Lactobacillus Rhamnosus (Culturelle) 2 cap PO BID COUNTS INCLUDE 234 BEDS AT [facility] Last Admin: 03/26/17 10:00 Dose: 2 cap Lisinopril (Prinivil) 20 mg PO DAILY COUNTS INCLUDE 234 BEDS AT [facility] Last Admin: 03/26/17 09:59 Dose: 20 mg Magnesium Hydroxide (Milk Of Magnesia) 30 ml PO Q12H PRN PRN Reason: Constipation Last Admin: 03/26/17 00:35 Dose: 30 ml Magnesium Oxide (Magnesium Oxide) 400 mg PO BID COUNTS INCLUDE 234 BEDS AT [facility] Last Admin: 03/26/17 10:01 Dose: 400 mg Metformin HCl (Glucophage) 850 mg PO BIDMEALS COUNTS INCLUDE 234 BEDS AT [facility] Last Admin: 03/26/17 09:56 Dose: 850 mg Metoprolol Succinate (Toprol Xl) 25 mg PO BEDTIME COUNTS INCLUDE 234 BEDS AT [facility] Last Admin: 03/25/17 21:05 Dose: 25 mg Mometasone Furoate/Formoterol Fumar (Dulera 200-5 Mcg) 2 puff IH BIDRT COUNTS INCLUDE 234 BEDS AT [facility] Last Admin: 03/26/17 07:06 Dose: 2 puff Morphine Sulfate (Morphine) 15 mg PO Q4H PRN PRN Reason: Pain Last Admin: 03/25/17 17:09 Dose: 15 mg Ondansetron HCl (Zofran) 4 mg IV Q4H PRN PRN Reason: Nausea/Vomiting Last Admin: 03/23/17 18:05 Dose: 4 mg Ondansetron HCl (Zofran Odt) 4 mg PO Q4H PRN PRN Reason: Nausea/Vomiting Last Admin: 03/26/17 05:17 Dose: 4 mg Oxybutynin Chloride (Oxybutynin) 5 mg PO BID COUNTS INCLUDE 234 BEDS AT [facility] Last Admin: 03/26/17 10:05 Dose: 5 mg Pantoprazole Sodium (Protonix) 40 mg PO BIDAC COUNTS INCLUDE 234 BEDS AT [facility] Last Admin: 03/26/17 09:57 Dose: 40 mg Polyethylene Glycol (Miralax) 17 gm PO DAILY PRN PRN Reason: Constipation Potassium Chloride (Klor-Con M20) 20 meq PO BIDMEALS COUNTS INCLUDE 234 BEDS AT [facility] Last Admin: 03/26/17 10:02 Dose: 20 meq Prednisone (Prednisone) 20 mg PO WITHBREAKFAST COUNTS INCLUDE 234 BEDS AT [facility] Last Admin: 03/26/17 10:00 Dose: 20 mg Simvastatin (Zocor) 10 mg PO BEDTIME COUNTS INCLUDE 234 BEDS AT [facility] Last Admin: 03/25/17 21:04 Dose: 10 mg Sodium Chloride (Saline Flush) 10 ml FLUSH ASDIRECTED PRN PRN Reason: Keep Vein Open Spironolactone (Aldactone) 25 mg PO DAILY COUNTS INCLUDE 234 BEDS AT [facility] Last Admin: 03/26/17 10:03 Dose: 25 mg Sucralfate (Carafate) 1 gm PO QIDACANDBED COUNTS INCLUDE 234 BEDS AT [facility] Last Admin: 03/26/17 13:33 Dose: 1 gm Trazodone HCl (Trazodone) 50 mg PO BEDTIME COUNTS INCLUDE 234 BEDS AT [facility] Last Admin: 03/25/17 21:01 Dose: 50 mg Verapamil HCl (Calan Sr) 180 mg PO BIDAC COUNTS INCLUDE 234 BEDS AT [facility] Last Admin: 03/26/17 09:57 Dose: 180 mg Discontinued Medications Albuterol/Ipratropium (Duoneb 3.0-0.5 Mg/3 Ml) 3 ml INH QID COUNTS INCLUDE 234 BEDS AT [facility] Last Admin: 03/24/17 05:27 Dose: 3 ml Bumetanide (Bumex) 3 mg PO BID COUNTS INCLUDE 234 BEDS AT [facility] Last Admin: 03/23/17 20:31 Dose: 3 mg Enoxaparin Sodium (Lovenox) 40 mg SUBCUT DAILY COUNTS INCLUDE 234 BEDS AT [facility] Last Admin: 03/23/17 18:05 Dose: 40 mg Escitalopram Oxalate (Lexapro) 30 mg PO BEDTIME COUNTS INCLUDE 234 BEDS AT [facility] Last Admin: 03/23/17 20:30 Dose: 30 mg Escitalopram Oxalate (Lexapro) Confirm Administered Dose 30 mg .ROUTE .STK-MED ONE Stop: 03/23/17 20:13 Last Admin: 03/23/17 20:36 Dose: Not Given Fentanyl (Sublimaze) Confirm Administered Dose 100 mcg .ROUTE .STK-MED ONE Stop: 03/24/17 07:08 Glycopyrrolate (Glycopyrrolate) 0.4 mg IVPUSH ONETIME ONE Stop: 03/24/17 07:08 Last Admin: 03/24/17 07:52 Dose: 0.4 mg Heparin Sodium (Porcine) (Heparin Lock Flush 100 Units/Ml) Confirm Administered Dose 500 units .ROUTE .STK-MED ONE Stop: 03/25/17 07:45 Last Admin: 03/25/17 08:02 Dose: Not Given Sodium Chloride (Normal Saline) 1,000 mls @ 50 mls/hr IV ASDIRECTED COUNTS INCLUDE 234 BEDS AT [facility] Last Admin: 03/23/17 15:15 Dose: 50 mls/hr Ceftriaxone Sodium 1 gm/ (Sodium Chloride) 50 mls @ 100 mls/hr IV Q24H COUNTS INCLUDE 234 BEDS AT [facility] Last Admin: 03/23/17 16:44 Dose: 100 mls/hr Lactated Ringer's (Ringers, Lactated) 1,000 mls @ 500 mls/hr IV ASDIRECTED COUNTS INCLUDE 234 BEDS AT [facility] Stop: 03/23/17 18:31 Last Admin: 03/23/17 16:43 Dose: 500 mls/hr Sodium Chloride (Normal Saline) 1,000 mls @ 250 mls/hr IV ASDIRECTED COUNTS INCLUDE 234 BEDS AT [facility] Stop: 03/23/17 23:16 Last Admin: 03/23/17 19:02 Dose: 250 mls/hr Sodium Chloride (Normal Saline) 1,000 mls @ 125 mls/hr IV ASDIRECTED COUNTS INCLUDE 234 BEDS AT [facility] Lactated Ringer's (Ringers, Lactated) 1,000 mls @ 75 mls/hr IV ASDIRECTED COUNTS INCLUDE 234 BEDS AT [facility] Last Admin: 03/24/17 23:21 Dose: 75 mls/hr Insulin Aspart (Novolog) 12 unit SUBCUT TIDMEALS COUNTS INCLUDE 234 BEDS AT [facility] Last Admin: 03/24/17 09:18 Dose: 12 units Insulin Aspart (Novolog) 0 unit SUBCUT QIDACANDBED COUNTS INCLUDE 234 BEDS AT THE [facility] PRN Reason: Protocol Last Admin: 03/25/17 10:46 Dose: Not Given Insulin Aspart (Novolog) 15 unit SUBCUT ONETIME ONE Stop: 03/24/17 21:58 Last Admin: 03/24/17 22:06 Dose: 15 units Insulin Aspart (Novolog) 12 unit SUBCUT ONETIME ONE Stop: 03/25/17 05:57 Last Admin: 03/25/17 06:07 Dose: 12 units Insulin Aspart (Novolog) 15 unit SUBCUT ONETIME ONE Stop: 03/25/17 08:31 Last Admin: 03/25/17 08:30 Dose: 15 units Insulin Aspart (Novolog) 19 unit SUBCUT ONETIME ONE Stop: 03/25/17 12:01 Last Admin: 03/25/17 12:46 Dose: 19 units Insulin Aspart (Novolog) 14 unit SUBCUT ONETIME ONE Stop: 03/25/17 16:36 Last Admin: 03/25/17 17:32 Dose: 14 units Insulin Aspart (Novolog) 15 unit SUBCUT ONETIME STA Stop: 03/26/17 05:46 Last Admin: 03/26/17 05:58 Dose: 15 units Insulin Aspart (Novolog) 14 unit SUBCUT ONETIME ONE Stop: 03/26/17 11:38 Last Admin: 03/26/17 13:33 Dose: Not Given Insulin Detemir (Levemir) 30 unit SUBCUT BID COUNTS INCLUDE 234 BEDS AT [facility] Last Admin: 03/24/17 09:23 Dose: 30 units Insulin Detemir (Levemir) 35 unit SUBCUT BID COUNTS INCLUDE 234 BEDS AT [facility] Last Admin: 03/24/17 22:06 Dose: 35 units Insulin Detemir (Levemir) 40 unit SUBCUT BID COUNTS INCLUDE 234 BEDS AT [facility] Last Admin: 03/25/17 09:18 Dose: 40 units Insulin Detemir (Levemir) 35 unit SUBCUT BID COUNTS INCLUDE 234 BEDS AT [facility] Last Admin: 03/26/17 09:55 Dose: 35 units Methylprednisolone Sodium Succinate (Solu-Medrol) 62.5 mg IVPUSH Q8H COUNTS INCLUDE 234 BEDS AT [facility] Stop: 03/26/17 06:00 Last Admin: 03/25/17 17:58 Dose: Not Given Midazolam HCl (Versed 1 Mg/Ml) Confirm Administered Dose 2 mg .ROUTE .STK-MED ONE Stop: 03/24/17 07:09 Mometasone Furoate/Formoterol Fumar (Dulera 200-5 Mcg) 1 puff IH BIDRT COUNTS INCLUDE 234 BEDS AT THE [facility] Last Admin: 03/25/17 07:18 Dose: 1 puff Non-Formulary Medication (Fluticasone/Salmeterol [Advair Diskus 500-50]) 1 puff INH BID COUNTS INCLUDE 234 BEDS AT THE [facility] Last Admin: 03/23/17 20:28 Dose: Not Given Non-Formulary Medication (Lactobacillus Acidophilus [Probiotic]) 2 cap PO BID COUNTS INCLUDE 234 BEDS AT [facility] Last Admin: 03/23/17 20:30 Dose: Not Given Non-Formulary Medication (Oxybutynin [Oxybutynin Er]) 10 mg PO DAILY COUNTS INCLUDE 234 BEDS AT THE [facility] Non-Formulary Medication (Simvastatin [Zocor]) 10 mg PO BEDTIME COUNTS INCLUDE 234 BEDS AT THE [facility] Last Admin: 03/23/17 20:31 Dose: 10 mg Pantoprazole Sodium (Protonix Iv) 40 mg IV Q12H COUNTS INCLUDE 234 BEDS AT [facility] Last Admin: 03/24/17 05:27 Dose: 40 mg Pantoprazole Sodium (Protonix Iv) 40 mg IV Q12H COUNTS INCLUDE 234 BEDS AT [facility] Potassium Chloride (Klor-Con M20) 20 meq PO BID COUNTS INCLUDE 234 BEDS AT [facility] Last Admin: 03/23/17 20:29 Dose: 20 meq Prednisone (Prednisone) 20 mg PO DAILY@0800 COUNTS INCLUDE 234 BEDS AT [facility] Last Admin: 03/24/17 09:20 Dose: 20 mg Propofol (Diprivan 20 Ml) Confirm Administered Dose 200 mg .ROUTE .STK-MED ONE Stop: 03/24/17 07:08 Simvastatin (Zocor) Confirm Administered Dose 20 mg .ROUTE .STK-MED ONE Stop: 03/23/17 20:13 Last Admin: 03/23/17 20:36 Dose: Not Given - Exam Quality Assessment: Supplemental Oxygen General: Alert, Oriented, Cooperative, No Acute Distress Neck: Supple Lungs: Normal Respiratory Effort GI/Abdominal Exam: No Distention Extremities: No Pedal Edema. No: Increased Warmth Psy/Mental Status: Alert, Normal Affect - Problem List Review Problem List Initiated/Reviewed/Updated: Yes - My Orders Last 24 Hours: My Active Orders 03/26/17 05:03 Ondansetron [Zofran ODT] 4 mg PO Q4H PRN 03/26/17 08:00 predniSONE 20 mg PO WITHBREAKFAST 03/26/17 09:00 metFORMIN [Glucophage] 850 mg PO BIDMEALS 03/26/17 21:00 Cefdinir [Omnicef] 300 mg PO BID Insulin Detemir [Levemir] 30 unit SUBCUT BID - Plan Plan:: ASSESSMENT AND PLAN URINARY TRACT INFECTION WITH EARLY SEPSIS - urine culture growing Klebsiella which is sensitive to cephalosporins. Fever curve normal for greater than 24 hours. -Saline lock IV -Start cefdinir this evening EPIGASTRIC ABDOMINAL PAIN - EGD negative other than mild gastritis. Symptomatically much better. -Twice daily PPI -Carafate per Dr. Arteaga TYPE 2 DIABETES MELLITUS - significant hyperglycemia with Solu-Medrol, back to home dose of prednisone this morning. 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 -Resume diuretic therapy today -Continue out patient medical regimen MAINTENANCE ISSUES -DVT prophylaxis; enoxaparin subcutaneous daily -GI prophylaxis; Protonix as above -Dougherty catheter; not indicated -Nutrition; 2 g sodium consistent carb diet DISPOSITION - anticipate discharge to home after the hospital stay, hopefully tomorrow if stable overnight Saran Bolivar M.D.
[2017-03-26] MEDS: Enoxaparin 40 MG/0.4 ML Syringe SUBCUT SCH (16:22)
[2017-03-26] MEDS: Acetaminophen 325 MG Tab PO PRN (17:28)
--- NOTE | 2017-03-26 17:52 | PN ---
DATE OF SERVICE: 03/26/2017 SUBJECTIVE: Dipti has been afebrile. She had one episode of nausea. Oral intake 1600. Urine output 1800. Denies any headache, dizziness, or loss of coordination. REVIEW OF SYSTEMS: NECK: Negative. Heart: No chest pain, shortness of breath, fast or irregular heartbeat. LUNGS: Has chronic shortness of breath, is on O2. ABDOMEN: No pain. Nausea, one episode as stated. No other reports of diarrhea or constipation. : Denies any urinary frequency. Feels like her UTI is improving. EXTREMITIES: Trace peripheral edema. NEUROLOGIC: Intact. ENDOCRINE: Blood sugars have been elevated at 439, 467, 338, and 407. She has been getting coverage. SKIN: Without rash. Remainder of review of systems is negative for any pertinent positives and negatives. OBJECTIVE: GENERAL: Dipti Daniel is a 61-year-old female. She is alert and orientated. TPR 97.7, 74, 18, blood pressure 110/63, O2 sats by pulse oximetry is 94% on 3 L of O2. HEENT: Negative. NECK: Supple. HEART: Regular rate and rhythm. LUNGS: Clear. ABDOMEN: Soft and nontender. EXTREMITIES: Reveal 1+ peripheral edema. NEUROLOGIC: Intact. ASSESSMENT: 1. Esophagogastroduodenoscopy, 03/24/2017. 2. Gastritis. 3. Urinary tract infection. PLAN: 1. Continue with Carafate. 2. We will evaluate p.r.n. or in a.m. Crys Fajardo PA-C /[id number]
[2017-03-26] MEDS: Metoprolol Succinate 25 MG Tab.ER PO SCH (21:32)
[2017-03-26] MEDS: Cefdinir 300 MG Cap PO SCH (21:32)
[2017-03-26] MEDS: ESCITALOPRAM PO SCH ×2 (21:32)
[2017-03-26] MEDS: Simvastatin 20 MG Tab PO SCH (21:33)
[2017-03-26] MEDS: traZODone 50 MG Tab PO SCH (21:33)
[2017-03-27] MEDS: Albuterol/Ipratropium 3.0-0.5 MG/3 ML Neb Soln INH SCH ×2 (07:17→10:39)
[2017-03-27] MEDS: Formoterol/Mometasone 200-5 MCG 8.8 GM Inhaler IH SCH (07:19)
[2017-03-27] MEDS: Sucralfate 1 GM Tab PO SCH ×2 (07:49→10:32)
[2017-03-27] MEDS: Verapamil 180 MG Tab.ER PO SCH (07:49)
[2017-03-27] MEDS: Insulin Aspart 100 Units/ML 3 ML Pen SUBCUT SCH ×4 (07:51→11:30)
[2017-03-27] MEDS: Pantoprazole 40 MG Tab.CR PO SCH (07:51)
[2017-03-27] MEDS: Bumetanide 1 MG Tab PO SCH (07:52)
[2017-03-27] MEDS: Potassium Chloride 20 MEQ Tab.ER PO SCH (07:54)
[2017-03-27] MEDS: predniSONE 20 MG Tab PO SCH (07:55)
[2017-03-27] MEDS: Spironolactone 25 MG Tab PO SCH (07:59)
[2017-03-27] MEDS: Aspirin 81 MG Tab.Chew PO SCH (07:59)
[2017-03-27] MEDS: Lactobacillus Rhamnosus GG (Probiotic) Cap PO SCH (07:59)
[2017-03-27] MEDS: Isosorbide Mononitrate 30 MG Tab.ER PO SCH (08:00)
[2017-03-27] MEDS: Gabapentin 300 MG Cap PO SCH (08:01)
[2017-03-27] MEDS: Insulin Detemir 100 Units/ML 3 ML Pen SUBCUT SCH (08:01)
[2017-03-27] MEDS: Magnesium Oxide 400 MG Tab PO SCH (08:01)
[2017-03-27] MEDS: Cefdinir 300 MG Cap PO SCH (08:02)
[2017-03-27] MEDS: Lisinopril 20 MG Tab PO SCH (08:02)
[2017-03-27] MEDS: Oxybutynin 5 MG Tab PO SCH (08:02)
[2017-03-27] MEDS: Acetaminophen 325 MG Tab PO PRN (10:31)
--- NOTE | 2017-03-27 10:48 | PCM.DCSUM1 ---
Discharge Summary - Hospital Course Brief History: 61-year-old female with history of COPD, insulin-dependent diabetes and obesity who presented with fever and weakness. She is admitted for management of acute cystitis. - Discharge Data Discharge Date: 03/27/17 Discharge Disposition: Home, Self-Care 01 Condition: Good - Discharge Diagnosis/Problem(s) (1) Urinary tract infection SNOMED Code(s): 32074194 ICD Code: N39.0 - URINARY TRACT INFECTION, SITE NOT SPECIFIED Status: Acute Qualifiers: Urinary tract infection type: acute cystitis Hematuria presence: without hematuria Qualified Code(s): N30.00 - Acute cystitis without hematuria (2) Diabetes mellitus SNOMED Code(s): 77788398 ICD Code: E11.9 - TYPE 2 DIABETES MELLITUS WITHOUT COMPLICATIONS Status: Acute Priority: Medium Qualifiers: Diabetes mellitus type: type 2 Diabetes mellitus complication status: with hyperglycemia Diabetes mellitus [facility] insulin use: with lobsterman use Qualified Code(s): E11.65 - Type 2 diabetes mellitus with hyperglycemia; Z79.4 - intermediate accountant (current) use of insulin; Z79.4 - [facility]PC (current) use of insulin ; Z79.4 - [facility] (current) use of insulin; Z79.4 - intermediate accountant (current) use of insulin (3) (HFpEF) heart failure with preserved ejection fraction SNOMED Code(s): 25115388 ICD Code: I50.30 - UNSPECIFIED DIASTOLIC (CONGESTIVE) HEART FAILURE Status : Chronic (4) Rheumatoid arthritis SNOMED Code(s): 10739029 ICD Code: M06.9 - RHEUMATOID ARTHRITIS, UNSPECIFIED Status: Chronic Priority: Medium Qualifiers: Rheumatoid arthritis location: unspecified site Rheumatoid factor presence : unspecified presence Qualified Code(s): M06.9 - Rheumatoid arthritis, unspecified - Patient Summary/Data Consults: Consultations 03/23/17 17:12 Consult to Physician [CONS] Routine Consulting Provider: Chuy Arteaga Courtesy Call Completed to Consulting Physician: Yes Reason for Consult: Mild dysphasia, epigastric abdominal pain, history of bezoar Hospital Course: Dipti presented to the emergency room with fever, weakness and dysuria. Workup in the emergency room revealed evidence for acute cystitis and she was admitted to the hospital for further management with evidence for mild sepsis. Over the next 24 hours she did show some improvement in her vital signs but had ongoing inferiorly high fevers despite fairly broad-spectrum antibiotics. With persistent fevers and persistent symptoms I elected to broaden her antibiotic coverage until urine culture results were available. She also reported an increase in joint pains consistent with rheumatoid arthritis and was willing to try a short course of IV steroids to reduce the symptoms. The increase in steroids resulted in significant elevations in her blood sugars. She required very high dose insulin to help reduce her hyperglycemia and this took 2 days to recover. Her joint pain did improve significantly with the steroids that were increased for approximately 24 hours. The broaden spectrum antibiotic coverage did improve her fever curve. She became afebrile after the new antibiotics were initiated. The urine culture results became available at a later and revealed Klebsiella which was sensitive to most antibiotics tested. She was transitioned to cefdinir and has remained afebrile since that time. Blood sugars finally did calm down and have been stable for 24 hours after the time interval was discontinued and metformin was restarted. She's had no issues with her respiratory status. She feels well enough for discharge to home and I believe she has safe with no fevers and stable vital signs. She will complete 6 additional doses of antibiotics for the urinary tract infection. She will remain on her 20 mg of prednisone daily. She has follow-up scheduled early next week. - Patient Instructions Diet: Low Sodium, Diabetic Diet Activity: As Tolerated Showering/Bathing: May Shower Notify Provider of: Fever, Increased Pain, Nausea and/or Vomiting Other/Special Instructions: 1. You were in the hospital for management of acute cystitis caused by Klebsiella. I recommend 6 additional doses of cefdinir to complete the treatment for the bladder infection. You should continue to take your probiotics to help maintain normal intestinal dennis. 2. Please continue your usual medications as previously prescribed. 3. Seek medical attention if you develop fever greater than 101, have sudden worsening of your shortness of breath, you develop severe chest pain or if you have persistent vomiting or diarrhea. - Discharge Plan Prescriptions/Med Rec: Cefdinir [IJD: Cefdinir] 300 mg PO BID #7 capsule Morphine 15 mg PO Q4H PRN #10 tablet PRN Reason: Pain Home Medications: Home Meds Albuterol [Ventolin HFA] 2 puff INH ASDIRECTED PRN 03/01/13 [History] Escitalopram [Lexapro] 30 mg PO BEDTIME 03/01/13 [History] Ipratropium/Albuterol Sulfate [Duoneb 0.5 MG-3 MG/3 ML] 3 ml INH QID 03/01/13 [ History] Metoprolol Succinate [Toprol XL] 25 mg PO BEDTIME 03/01/13 [History] Verapamil HCl [Verelan] 180 mg PO BIDAC 03/01/13 [History] Aspirin 81 mg PO DAILY 08/30/13 [History] Simvastatin [Zocor] 10 mg PO BEDTIME 08/30/13 [History] Magnesium Oxide 400 mg PO BID 09/01/13 [History] Lactobacillus Acidophilus [Probiotic] 1 cap PO BID 04/05/14 [History] Cyclobenzaprine [Flexeril] 10 mg PO TID PRN 09/27/14 [History] Folic Acid 1 mg PO DAILY 09/27/14 [History] metFORMIN [Glucophage] 850 mg PO BID 09/27/14 [History] Gabapentin [Neurontin] 300 mg PO BID 03/28/15 [History] Lisinopril 20 mg PO DAILY 03/28/15 [History] Oxybutynin [Oxybutynin ER] 10 mg PO DAILY 03/28/15 [History] Promethazine [Phenergan] 25 mg PO Q8H PRN 03/28/15 [History] traZODone 50 mg PO BEDTIME 03/28/15 [History] Potassium Chloride [Klor-Con M20] 20 meq PO BID #60 tab.er 07/29/15 [Rx] Cyanocobalamin (Vitamin B12) [Vitamin B12] 1,000 mcg IM Q30D 09/26/15 [History] Ergocalciferol (Vitamin D2) [Vitamin D2] 50,000 unit PO WEEKLY 09/26/15 [History ] Ferrous Sulfate 325 mg PO DAILY 09/26/15 [History] Fluticasone/Salmeterol [Advair Diskus 500-50] 1 puff INH BID 12/05/15 [History] azaTHIOprine [Azathioprine] 150 mg PO DAILY 12/05/15 [History] Isosorbide Mononitrate [Isosorbide Mononitrate ER] 30 mg PO DAILY 04/12/16 [ History] Insulin Aspart [NovoLOG] 12 unit SUBCUT TIDMEALS 06/05/16 [History] Pantoprazole [ProTONIX] 40 mg PO DAILY 07/13/16 [History] Insulin Detemir [Levemir Flextouch] 30 units SQ BID #300 ml 08/28/16 [Rx] Prednisone [IJD: predniSONE] 20 mg PO DAILY 10/28/16 [History] Spironolactone [Aldactone] 25 mg PO DAILY #30 tablet 12/27/16 [Rx] ALPRAZolam [Alprazolam] 0.25 mg PO ASDIRECTED PRN 02/22/17 [History] Bumetanide [Bumex] 3 mg PO BID #0 tablet 03/20/17 [Rx] Cefdinir [IJD: Cefdinir] 300 mg PO BID #7 capsule 03/27/17 [Rx] Morphine 15 mg PO Q4H PRN #10 tablet 03/27/17 [Rx] Patient Handouts: Cefdinir capsules, Urinary Tract Infection, Adult, Easy-to- Read Referrals: Arnulfo Gonsalez MD [Primary Care Provider] - (f/u as scheduled next week ) - Discharge Summary/Plan Comment DC Time >30 min.: No (25) - Patient Data Vitals - Most Recent: Last Vital Signs Temp 36.3 C 03/27/17 07:08 Pulse 80 03/27/17 10:40 Resp 16 03/27/17 07:08 BP 144/66 H 03/27/17 08:02 Pulse Ox 97 03/27/17 07:08 Weight - Most Recent: 137.665 kg I&O - Last 24 hours: Intake & Output 03/26/17 03/27/17 03/27/17 22:59 06:59 14:59 Intake Total 490 184 1033 Output Total 900 1050 Balance -660 -330 1260 Med Orders - Current: Current Medications Acetaminophen (Tylenol) 650 mg PO Q4H PRN PRN Reason: Pain (Mild 1-3)/fever Last Admin: 03/27/17 10:31 Dose: 650 mg Albuterol (Proventil Neb Soln) 2.5 mg NEB Q4H PRN PRN Reason: Shortness Of Breath/wheezing Albuterol/Ipratropium (Duoneb 3.0-0.5 Mg/3 Ml) 3 ml INH QIDRT OSMEL Last Admin: 03/27/17 10:39 Dose: 3 ml Alprazolam (Xanax) 0.25 mg PO TID PRN PRN Reason: Anxiety Last Admin: 03/25/17 23:22 Dose: 0.25 mg Aspirin (Aspirin) 81 mg PO DAILY [facility] Last Admin: 03/27/17 07:59 Dose: 81 mg Azathioprine (Imuran) 150 mg PO DAILY [facility] Last Admin: 03/27/17 08:00 Dose: 150 mg Bumetanide (Bumex) 3 mg PO BIDDIURETIC [facility] Last Admin: 03/27/17 07:52 Dose: 3 mg Cefdinir (Omnicef) 300 mg PO BID [facility] Last Admin: 03/27/17 08:02 Dose: 300 mg Cyclobenzaprine HCl (Flexeril) 10 mg PO TID PRN PRN Reason: Pain Last Admin: 03/26/17 05:17 Dose: 10 mg Dextrose (Glutose 15) 15 gm PO ONETIME PRN PRN Reason: Hypoglycemia Dextrose/Water (Dextrose 50% In Water) 50 ml IV ONETIME PRN PRN Reason: Hypoglycemia Docusate Sodium (Colace) 100 mg PO BID PRN PRN Reason: Constipation Enoxaparin Sodium (Lovenox) 40 mg SUBCUT Q24H [facility] Last Admin: 03/26/17 16:22 Dose: 40 mg Escitalopram Oxalate 10 mg/ (Escitalopram Oxalate 20 mg) 30 mg PO BEDTIME [facility] Last Admin: 03/26/17 21:32 Dose: 30 mg Gabapentin (Neurontin) 300 mg PO BID [facility] Last Admin: 03/27/17 08:01 Dose: 300 mg Heparin Sodium (Porcine) (Heparin Lock Flush 100 Units/Ml) 500 units FLUSH ASDIRECTED PRN PRN Reason: Keep Vein Open Last Admin: 03/26/17 04:57 Dose: 500 units Insulin Aspart (Novolog) 16 unit SUBCUT TIDMEALS [facility] Last Admin: 03/27/17 07:54 Dose: 16 units Insulin Aspart (Novolog) 0 unit SUBCUT QIDACANDBED [facility] PRN Reason: Protocol Last Admin: 03/27/17 07:51 Dose: 3 units Insulin Detemir (Levemir) 30 unit SUBCUT BID [facility] Last Admin: 03/27/17 08:01 Dose: 30 units Isosorbide Mononitrate (Imdur) 30 mg PO DAILY [facility] Last Admin: 03/27/17 08:00 Dose: 30 mg Lactobacillus Rhamnosus (Culturelle) 2 cap PO BID [facility] Last Admin: 03/27/17 07:59 Dose: 2 cap Lisinopril (Prinivil) 20 mg PO DAILY [facility] Last Admin: 03/27/17 08:02 Dose: 20 mg Magnesium Hydroxide (Milk Of Magnesia) 30 ml PO Q12H PRN PRN Reason: Constipation Last Admin: 03/26/17 00:35 Dose: 30 ml Magnesium Oxide (Magnesium Oxide) 400 mg PO BID [facility] Last Admin: 03/27/17 08:01 Dose: 400 mg Metformin HCl (Glucophage) 850 mg PO BIDMEALS [facility] Last Admin: 03/27/17 07:54 Dose: 850 mg Metoprolol Succinate (Toprol Xl) 25 mg PO BEDTIME [facility] Last Admin: 03/26/17 21:32 Dose: 25 mg Mometasone Furoate/Formoterol Fumar (Dulera 200-5 Mcg) 2 puff IH BIDRT [facility] Last Admin: 03/27/17 07:19 Dose: 2 puff Morphine Sulfate (Morphine) 15 mg PO Q4H PRN PRN Reason: Pain Last Admin: 03/25/17 17:09 Dose: 15 mg Ondansetron HCl (Zofran) 4 mg IV Q4H PRN PRN Reason: Nausea/Vomiting Last Admin: 03/23/17 18:05 Dose: 4 mg Ondansetron HCl (Zofran Odt) 4 mg PO Q4H PRN PRN Reason: Nausea/Vomiting Last Admin: 03/26/17 05:17 Dose: 4 mg Oxybutynin Chloride (Oxybutynin) 5 mg PO BID [facility] Last Admin: 03/27/17 08:02 Dose: 5 mg Pantoprazole Sodium (Protonix) 40 mg PO BIDAC [facility] Last Admin: 03/27/17 07:51 Dose: 40 mg Polyethylene Glycol (Miralax) 17 gm PO DAILY PRN PRN Reason: Constipation Potassium Chloride (Klor-Con M20) 20 meq PO BIDMEALS [facility] Last Admin: 03/27/17 07:54 Dose: 20 meq Prednisone (Prednisone) 20 mg PO WITHBREAKFAST [facility] Last Admin: 03/27/17 07:55 Dose: 20 mg Simvastatin (Zocor) 10 mg PO BEDTIME [facility] Last Admin: 03/26/17 21:33 Dose: 10 mg Sodium Chloride (Saline Flush) 10 ml FLUSH ASDIRECTED PRN PRN Reason: Keep Vein Open Spironolactone (Aldactone) 25 mg PO DAILY [facility] Last Admin: 03/27/17 07:59 Dose: 25 mg Sucralfate (Carafate) 1 gm PO QIDACANDBED [facility] Last Admin: 03/27/17 10:32 Dose: 1 gm Trazodone HCl (Trazodone) 50 mg PO BEDTIME [facility] Last Admin: 03/26/17 21:33 Dose: 50 mg Verapamil HCl (Calan Sr) 180 mg PO BIDAC [facility] Last Admin: 03/27/17 07:49 Dose: 180 mg Discontinued Medications Albuterol/Ipratropium (Duoneb 3.0-0.5 Mg/3 Ml) 3 ml INH QID [facility] Last Admin: 03/24/17 05:27 Dose: 3 ml Bumetanide (Bumex) 3 mg PO BID [facility] Last Admin: 03/23/17 20:31 Dose: 3 mg Enoxaparin Sodium (Lovenox) 40 mg SUBCUT DAILY [facility] Last Admin: 03/23/17 18:05 Dose: 40 mg Escitalopram Oxalate (Lexapro) 30 mg PO BEDTIME [facility] Last Admin: 03/23/17 20:30 Dose: 30 mg Escitalopram Oxalate (Lexapro) Confirm Administered Dose 30 mg .ROUTE .STK-MED ONE Stop: 03/23/17 20:13 Last Admin: 03/23/17 20:36 Dose: Not Given Fentanyl (Sublimaze) Confirm Administered Dose 100 mcg .ROUTE .STK-MED ONE Stop: 03/24/17 07:08 Glycopyrrolate (Glycopyrrolate) 0.4 mg IVPUSH ONETIME ONE Stop: 03/24/17 07:08 Last Admin: 03/24/17 07:52 Dose: 0.4 mg Heparin Sodium (Porcine) (Heparin Lock Flush 100 Units/Ml) Confirm Administered Dose 500 units .ROUTE .STK-MED ONE Stop: 03/25/17 07:45 Last Admin: 03/25/17 08:02 Dose: Not Given Sodium Chloride (Normal Saline) 1,000 mls @ 50 mls/hr IV ASDIRECTED [facility] Last Admin: 03/23/17 15:15 Dose: 50 mls/hr Ceftriaxone Sodium 1 gm/ (Sodium Chloride) 50 mls @ 100 mls/hr IV Q24H [facility] Last Admin: 03/23/17 16:44 Dose: 100 mls/hr Lactated Ringer's (Ringers, Lactated) 1,000 mls @ 500 mls/hr IV ASDIRECTED OSMEL Stop: 03/23/17 18:31 Last Admin: 03/23/17 16:43 Dose: 500 mls/hr Sodium Chloride (Normal Saline) 1,000 mls @ 250 mls/hr IV ASDIRECTED [facility] Stop: 03/23/17 23:16 Last Admin: 03/23/17 19:02 Dose: 250 mls/hr Sodium Chloride (Normal Saline) 1,000 mls @ 125 mls/hr IV ASDIRECTED [facility] Lactated Ringer's (Ringers, Lactated) 1,000 mls @ 75 mls/hr IV ASDIRECTED [facility] Last Admin: 03/24/17 23:21 Dose: 75 mls/hr Ceftazidime 1 gm/ Sodium (Chloride) 50 mls @ 100 mls/hr IV Q8H [facility] Stop: 03/26/17 16:00 Last Admin: 03/26/17 13:09 Dose: 100 mls/hr Insulin Aspart (Novolog) 12 unit SUBCUT TIDMEALS [facility] Last Admin: 03/24/17 09:18 Dose: 12 units Insulin Aspart (Novolog) 0 unit SUBCUT QIDACANDBED [facility] PRN Reason: Protocol Last Admin: 03/25/17 10:46 Dose: Not Given Insulin Aspart (Novolog) 15 unit SUBCUT ONETIME ONE Stop: 03/24/17 21:58 Last Admin: 03/24/17 22:06 Dose: 15 units Insulin Aspart (Novolog) 12 unit SUBCUT ONETIME ONE Stop: 03/25/17 05:57 Last Admin: 03/25/17 06:07 Dose: 12 units Insulin Aspart (Novolog) 15 unit SUBCUT ONETIME ONE Stop: 03/25/17 08:31 Last Admin: 03/25/17 08:30 Dose: 15 units Insulin Aspart (Novolog) 19 unit SUBCUT ONETIME ONE Stop: 03/25/17 12:01 Last Admin: 03/25/17 12:46 Dose: 19 units Insulin Aspart (Novolog) 14 unit SUBCUT ONETIME ONE Stop: 03/25/17 16:36 Last Admin: 03/25/17 17:32 Dose: 14 units Insulin Aspart (Novolog) 15 unit SUBCUT ONETIME STA Stop: 03/26/17 05:46 Last Admin: 03/26/17 05:58 Dose: 15 units Insulin Aspart (Novolog) 14 unit SUBCUT ONETIME ONE Stop: 03/26/17 11:38 Last Admin: 03/26/17 13:33 Dose: Not Given Insulin Detemir (Levemir) 30 unit SUBCUT BID [facility] Last Admin: 03/24/17 09:23 Dose: 30 units Insulin Detemir (Levemir) 35 unit SUBCUT BID [facility] Last Admin: 03/24/17 22:06 Dose: 35 units Insulin Detemir (Levemir) 40 unit SUBCUT BID [facility] Last Admin: 03/25/17 09:18 Dose: 40 units Insulin Detemir (Levemir) 35 unit SUBCUT BID [facility] Last Admin: 03/26/17 09:55 Dose: 35 units Methylprednisolone Sodium Succinate (Solu-Medrol) 62.5 mg IVPUSH Q8H [facility] Stop: 03/26/17 06:00 Last Admin: 03/25/17 17:58 Dose: Not Given Midazolam HCl (Versed 1 Mg/Ml) Confirm Administered Dose 2 mg .ROUTE .STK-MED ONE Stop: 03/24/17 07:09 Mometasone Furoate/Formoterol Fumar (Dulera 200-5 Mcg) 1 puff IH BIDRT [facility] Last Admin: 03/25/17 07:18 Dose: 1 puff Non-Formulary Medication (Fluticasone/Salmeterol [Advair Diskus 500-50]) 1 puff INH BID [facility] Last Admin: 03/23/17 20:28 Dose: Not Given Non-Formulary Medication (Lactobacillus Acidophilus [Probiotic]) 2 cap PO BID [facility] Last Admin: 03/23/17 20:30 Dose: Not Given Non-Formulary Medication (Oxybutynin [Oxybutynin Er]) 10 mg PO DAILY [facility] Non-Formulary Medication (Simvastatin [Zocor]) 10 mg PO BEDTIME [facility] Last Admin: 03/23/17 20:31 Dose: 10 mg Pantoprazole Sodium (Protonix Iv) 40 mg IV Q12H [facility] Last Admin: 03/24/17 05:27 Dose: 40 mg Pantoprazole Sodium (Protonix Iv) 40 mg IV Q12H [facility] Potassium Chloride (Klor-Con M20) 20 meq PO BID [facility] Last Admin: 03/23/17 20:29 Dose: 20 meq Prednisone (Prednisone) 20 mg PO DAILY@0800 [facility] Last Admin: 03/24/17 09:20 Dose: 20 mg Propofol (Diprivan 20 Ml) Confirm Administered Dose 200 mg .ROUTE .STK-MED ONE Stop: 03/24/17 07:08 Simvastatin (Zocor) Confirm Administered Dose 20 mg .ROUTE .STK-MED ONE Stop: 03/23/17 20:13 Last Admin: 03/23/17 20:36 Dose: Not Given - Exam Quality Assessment: Reports: Supplemental Oxygen General: Reports: Alert, Oriented, Cooperative, No Acute Distress Neck: Reports: Supple Lungs: Reports: Normal Respiratory Effort GI/Abdominal Exam: No Distention Extremities: No Pedal Edema *Q Meaningful Use (DIS) - VTE *Q VTE Criteria *Q: - Stroke *Q Stroke Criteria *Q: - AMI *Q AMI Criteria *Q:
[2017-03-27 11:16] VITALS: BP 95/47
[2017-03-27] MEDS: Morphine 15 MG Tab PO PRN (13:05)
--- NOTE | 2017-03-27 13:26 | OR ---
DATE OF PROCEDURE: 03/24/2017 PREOPERATIVE DIAGNOSIS: Epigastric pain. POSTOPERATIVE DIAGNOSIS: Epigastric pain associated with moderate antral gastritis. OPERATIVE PROCEDURE: Upper GI endoscopy with biopsies of antrum for CLOtest. ANESTHESIA: IV sedation. INDICATION FOR PROCEDURE: A 61-year-old female admitted with what appears to be a urinary tract infection, was also noted to have quite a bit in the way of epigastric pain. She presently is on omeprazole. The plan is to proceed with upper GI endoscopy with biopsies as indicated. Potential risks including bleeding and perforation were discussed, and the patient wishes to proceed. DETAILS OF PROCEDURE: The patient was taken to the operating room and placed in a left lateral decubitus position. IV sedation was administered, after which the upper GI endoscope was passed orally through the length of the esophagus and into the stomach with retroflexion view of the fundus and thereafter through the pyloric channel, then into the duodenum to the junction of the third and fourth portions. Findings included normal hypopharynx, larynx, upper esophageal sphincter, and esophageal body. At the EG junction, no significant inflammation was noted, nor was any significant hiatal hernia. In the stomach, there was a small amount of retained bile. As one approached the antrum, there was moderate antral gastritis. This was not associated with any erosions or ulcers, but was quite densely reddened and edematous, likely accounting for the patient's epigastric discomfort. Pyloric channel and visualized portion of the duodenum were unremarkable. At this point, biopsies were obtained from the antrum and sent for CLOtest for H. pylori. Minimal bleeding from the biopsy sites was seen, and the procedure then concluded. Given, the patient is presently on omeprazole, I think we will add Carafate to provide some additional cytoprotection and, otherwise, continue management per Dr. Hemphill and Dr. Bolivar. Chuy Arteaga MD /[id number]
== END 2017-03-27 13:23 | disposition home or self-care (01) | DRG 720 ==
LOC: JP.ED 12:17 → JP.MS 16:49
PROVIDERS: ADMIT Hospitalist; ATTEND Internal Medicine
PROC: 0DB68ZX Excision of Stomach, Via Natural or Artificial Opening Endoscopic, Diagnostic (ICD-10-PCS; principal; 2017-03-24)
DX: A41.9 Sepsis, unspecified organism (principal); R65.20 Severe sepsis without septic shock; N17.9 Acute kidney failure, unspecified; K29.70 Gastritis, unspecified, without bleeding; B96.1 Klebsiella pneumoniae [K. pneumoniae] as the cause of diseases classified elsewhere; N30.00 Acute cystitis without hematuria; E11.65 Type 2 diabetes mellitus with hyperglycemia; I11.0 Hypertensive heart disease with heart failure; I50.30 Unspecified diastolic (congestive) heart failure; M06.9 Rheumatoid arthritis, unspecified; E11.21 Type 2 diabetes mellitus with diabetic nephropathy; E11.40 Type 2 diabetes mellitus with diabetic neuropathy, unspecified; Z79.4 Long term (current) use of insulin; J44.9 Chronic obstructive pulmonary disease, unspecified; Z79.899 Other long term (current) drug therapy; E53.8 Deficiency of other specified B group vitamins; M19.90 Unspecified osteoarthritis, unspecified site; M54.9 Dorsalgia, unspecified; G89.29 Other chronic pain; K21.9 Gastro-esophageal reflux disease without esophagitis; Z99.81 Dependence on supplemental oxygen; Z87.01 Personal history of pneumonia (recurrent); F41.9 Anxiety disorder, unspecified; F32.9 Major depressive disorder, single episode, unspecified; Z87.891 Personal history of nicotine dependence; H54.7 Unspecified visual loss; Z88.1 Allergy status to other antibiotic agents; Z79.82 Long term (current) use of aspirin; Z79.52 Long term (current) use of systemic steroids; Z96.659 Presence of unspecified artificial knee joint
CPT/HCPCS: 36415; 71010; 71010-26; 80048; 80053; 81001; 82947; 82962; 83605; 83880; 84484; 85025; 85027; 85651; 86140; 87040; 87081; 87086; 87088; 87186; 87804; 93005; 94640; 94640-76; 96361; 96372; 96374; 96375; 96376; 99285-25; A9270-GY; C1751; C9113; J0696; J0713; J1642; J1650; J2250; J2405; J2704; J2930; J3010; J3490; J7040; J7050; J7120; J7500; J7620

== ENCOUNTER 2017-04-08 10:45 | Emergency (ER) | payer BC, MEDICAID ==
[2017-04-08] MEDS ORDERED: Albuterol/Ipratropium 3.0-0.5 MG/3 ML Neb Soln NEB ONE (11:42)
[2017-04-08 12:04] VITALS: BP 135/74
--- NOTE | 2017-04-08 12:27 | EDM.PDOC ---
ED HPI GENERAL MEDICAL PROBLEM - General Chief Complaint: Respiratory Problem Stated Complaint: SOB Time Seen by Provider: 04/08/17 11:10 Source of Information: Reports: Patient, Family History Limitations: Reports: No Limitations - History of Present Illness INITIAL COMMENTS - FREE TEXT/NARRATIVE: 61-year-old female with COPD and a history of congestive heart failure has had increasing shortness of breath, increasing chest and abdominal pressure and feels she's been gaining weight over the past 2-3 days. She was having increasing shortness of breath over the past 1-2 days so called the clinic this morning to talk to her physician and he sent her to the emergency room. She arrived by private car. She appears anxious and somewhat dyspneic. Onset: Gradual (Worsened over the past 48 hours) Location: Reports: Chest (Some intermittent chest discomfort which is chronic and recurring) Quality: Reports: Pressure Severity: Moderate Associated Symptoms: Reports: Chest Pain, Cough, Shortness of Breath, Weakness. Denies: Nausea/Vomiting - Related Data Allergies Allergy/AdvReac Type Severity Reaction Status Date / Time cephalexin monohydrate Allergy Unknown flusing Verified 03/23/17 13:59 [From Keflex] levofloxacin [Levofloxacin] Allergy Rash Verified 03/23/17 13:59 amoxicillin [Amoxicillin] AdvReac Vomiting Verified 03/23/17 13:59 amoxicillin trihydrate AdvReac Vomiting Verified 03/23/17 13:59 [From Augmentin] erythromycin base AdvReac Nausea and Verified 03/23/17 13:59 [Erythromycin Base] Vomiting potassium clavulanate AdvReac Vomiting Verified 03/23/17 13:59 [From Augmentin] Home Meds: Home Meds Albuterol [Ventolin HFA] 2 puff INH ASDIRECTED PRN 03/01/13 [History] Escitalopram [Lexapro] 30 mg PO BEDTIME 03/01/13 [History] Ipratropium/Albuterol Sulfate [Duoneb 0.5 MG-3 MG/3 ML] 3 ml INH QID 03/01/13 [ History] Metoprolol Succinate [Toprol XL] 25 mg PO BEDTIME 03/01/13 [History] Verapamil HCl [Verelan] 180 mg PO BIDAC 03/01/13 [History] Aspirin 81 mg PO DAILY 08/30/13 [History] Simvastatin [Zocor] 10 mg PO BEDTIME 08/30/13 [History] Magnesium Oxide 400 mg PO BID 09/01/13 [History] Lactobacillus Acidophilus [Probiotic] 1 cap PO BID 04/05/14 [History] Cyclobenzaprine [Flexeril] 10 mg PO TID PRN 09/27/14 [History] Folic Acid 1 mg PO DAILY 09/27/14 [History] metFORMIN [Glucophage] 850 mg PO BID 09/27/14 [History] Gabapentin [Neurontin] 300 mg PO BID 03/28/15 [History] Lisinopril 20 mg PO DAILY 03/28/15 [History] Oxybutynin [Oxybutynin ER] 10 mg PO DAILY 03/28/15 [History] Promethazine [Phenergan] 25 mg PO Q8H PRN 03/28/15 [History] traZODone 50 mg PO BEDTIME 03/28/15 [History] Potassium Chloride [Klor-Con M20] 20 meq PO BID #60 tab.er 07/29/15 [Rx] Cyanocobalamin (Vitamin B12) [Vitamin B12] 1,000 mcg IM Q30D 09/26/15 [History] Ergocalciferol (Vitamin D2) [Vitamin D2] 50,000 unit PO WEEKLY 09/26/15 [History ] Ferrous Sulfate 325 mg PO DAILY 09/26/15 [History] Fluticasone/Salmeterol [Advair Diskus 500-50] 1 puff INH BID 12/05/15 [History] azaTHIOprine [Azathioprine] 150 mg PO DAILY 12/05/15 [History] Isosorbide Mononitrate [Isosorbide Mononitrate ER] 30 mg PO DAILY 04/12/16 [ History] Insulin Aspart [NovoLOG] 12 unit SUBCUT QIDACANDBED 06/05/16 [History] Pantoprazole [ProTONIX] 40 mg PO DAILY 07/13/16 [History] Insulin Detemir [Levemir Flextouch] 30 units SQ BID #300 ml 08/28/16 [Rx] Prednisone [IJD: predniSONE] 20 mg PO DAILY 10/28/16 [History] Spironolactone [Aldactone] 25 mg PO DAILY #30 tablet 12/27/16 [Rx] ALPRAZolam [Alprazolam] 0.25 mg PO ASDIRECTED PRN 02/22/17 [History] Bumetanide [Bumex] 3 mg PO BID #0 tablet 03/20/17 [Rx] Morphine 15 mg PO Q4H PRN #10 tablet 03/27/17 [Rx] Clotrimazole [Mycelex] 1 tab PO TID 04/08/17 [History] Insulin Regular, Human [NovoLIN R] 1 units SUBCUT QIDACANDBED PRN 04/08/17 [ History] Sucralfate [Sucralfate] 1 tab PO QID 04/08/17 [History] Past Medical History HEENT History: Reports: Cataract, Impaired Vision Cardiovascular History: Reports: Angina, Heart Failure, Hypertension, SOB on Exertion, Other (See Below) Other Cardiovascular History: diastolic congestive heart failure Respiratory History: Reports: Asthma, Bronchitis, Recurrent, COPD, Pneumonia, Recurrent, SOB, Other (See Below) Other Respiratory History: Home 3l O2 and nebs Gastrointestinal History: Reports: Cholelithiasis, GERD, Other (See Below) Other Gastrointestinal History: history of bezoars Genitourinary History: Reports: Diabetic Nephropathy, Urinary Incontinence, Other (See Below) Other Genitourinary History: mass by bladder taken out in 2007 non cancer 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, , 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 Musculoskeletal History: Reports: Back Pain, Chronic, Osteoarthritis, RA Neurological History: Reports: Neuropathy, Diabetic Psychiatric History: Reports: Anxiety, Depression, Panic Attack, Psych Hospitalization(s) Endocrine/Metabolic History: Reports: Diabetes, Type II, Obesity/BMI 30+, Osteoporosis Hematologic History: Reports: Anemia, B12 Deficiency Immunologic History: Reports: Immunosuppression, Other (See Below) Other Immunologic History: on medication that affects immunity Oncologic (Cancer) History: Reports: None Dermatologic History: Reports: Other (See Below) Other Dermatologic History: chronic sore left arm - Infectious Disease History Infectious Disease History: Reports: Chicken Pox, Helicobacter Pylori, Influenza , Measles, Mononucleosis, Mumps - Past Surgical History HEENT Surgical History: Reports: Cataract Surgery, Tonsillectomy Cardiovascular Surgical History: Reports: None Respiratory Surgical History: Reports: None GI Surgical History: Reports: Cholecystectomy, Colonoscopy, EGD Female Surgical History: Reports: Breast Biopsy, Hysterectomy, Tubal Ligation Endocrine Surgical History: Reports: None Neurological Surgical History: Reports: None Musculoskeletal Surgical History: Reports: Knee Replacement Oncologic Surgical History: Reports: None Dermatological Surgical History: Reports: None Social & Family History - Family History Family Medical History: Noncontributory HEENT: Reports: Cataract Cardiac: Reports: CAD Respiratory: Reports: Asthma : Reports: Other (See Below) Other Family History: mom kidney CA Musculoskeletal: Reports: Arthritis, RA Neurological: Reports: CVA, Seizure Endocrine/Metabolic: Reports: Diabetes, type II - Tobacco Use Smoking Status *Q: Former Smoker Years of Tobacco use: 15 Packs/Tins Daily: 1 Used Tobacco, but Quit: Yes Month Tobacco Last Used: dec Second Hand Smoke Exposure: No - Caffeine Use Caffeine Use: Reports: Soda Other Caffeine Use: 3 bottles a day Caffeine Use Comment: 2-3 daily - Alcohol Use Days Per Week of Alcohol Use: 0 - Recreational Drug Use Recreational Drug Use: No - Living Situation & Occupation Living situation: Reports: , with Spouse, Other (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 Denies: Fever, Chills HEENT: Reports: No Symptoms Respiratory: Reports: Shortness of Breath, Wheezing, Cough. Denies: Sputum Cardiovascular: Reports: Chest Pain (Some intermittent mild pressure unrelated to activity, seems more related to breathing and coughing) GI/Abdominal: Denies: Abdominal Pain (No abdominal pain but feels upper abdominal pressure) : Reports: No Symptoms Neurological: Denies: Headache Psychiatric: Reports: Anxiety ED EXAM, GENERAL - Physical Exam Exam: See Below Exam Limited By: No Limitations General Appearance: Alert, Anxious, Mild Distress (Looks anxious and uncomfortable) Respiratory/Chest: Wheezing (Patient has diffuse inspiratory and expiratory wheezing present, no significant decreased breath sounds at the bases or rales) Cardiovascular: Regular Rate, Rhythm GI/Abdominal: Other (Morbidly obese abdomen) Extremities: Pedal Edema (She has just a trace of bilateral pedal edema, symmetric) Neurological: Alert, Oriented Psychiatric: Anxious Skin Exam: Warm, Dry, Other (Numerous bruises on the extremities from recent IV and lab work. A few excoriations but no evidence of infection.) Course - Vital Signs Last Recorded V/S: Last Vital Signs Temp 98.8 F 04/08/17 11:29 Pulse 101 H 04/08/17 12:02 Resp 20 11/07/17 12:02 BP 135/74 04/08/17 12:02 Pulse Ox 93 L 04/08/17 12:02 - Orders/Labs/Meds Orders: Active Orders 24 hr Category Date Time Status RT Aerosol Therapy [RC] ASDIRECTED Care 04/08/17 11:42 Active CULTURE URINE [RM] Stat Lab 04/08/17 12:46 Received Labs: Laboratory Tests 04/08/17 Range/Units 12:00 Urine Color Yellow Urine Appearance Cloudy Urine pH 5.0 (4.5-8.0) Ur Specific [place] 1.015 (1.008-1.030) Urine Protein Negative (NEGATIVE) mg/dL Urine Glucose (UA) Normal (NEGATIVE) mg/dL Urine Ketones Negative (NEGATIVE) mg/dL Urine Occult Blood Negative (NEGATIVE) Urine Nitrite Negative (NEGATIVE) Urine Bilirubin Small (NEGATIVE) Urine Urobilinogen Normal (NORMAL) mg/dL Ur Leukocyte Esterase Negative (NEGATIVE) Urine RBC 0-5 (0-5) Urine WBC 20-30 H (0-5) Ur Epithelial Cells Few Amorphous Sediment Not seen Urine Bacteria Moderate Urine Mucus Not seen Meds: Medications Discontinued Medications Generic Name Dose Route Start Last Admin Trade Name Freq PRN Reason Stop Dose Admin Albuterol/Ipratropium 3 ml 04/08/17 11:42 04/08/17 11:49 Duoneb 3.0-0.5 Mg/3 Ml NEB 04/08/17 11:43 3 ml ONETIME ONE Administration - Re-Assessments/Exams Free Text/Narrative Re-Assessment/Exam: 04/08/17 12:26 Patient was given a duo neb which resolved the wheezing. Even prior to the DuoNeb her O2 saturations were 93-94% on room air. She insisted that she needed IV medications to improve. A UA was sent. 04/08/17 13:00 UA did show a few WBCs and bacteria so culture was initiated but no treatment necessary. After the patient felt she was going to be admitted she seemed to calm down and looked much better. I discussed a possible admission with the hospitalist service but without objective findings it was felt she is already treated appropriately with outpatient medications. I encouraged her to double her prednisone for 3 days, continue her other medications and return if not improving. I think I also convinced her that there is a strong anxiety component to her symptoms. Departure - Departure Time of Disposition: 13:12 Disposition: Home, Self-Care 01 Condition: Fair Clinical Impression: Anxiety COPD (chronic obstructive pulmonary disease) Qualifiers: COPD type: unspecified COPD Qualified Code(s): J44.9 - Chronic obstructive pulmonary disease, unspecified Reactive airway disease Qualifiers: Asthma severity: moderate Asthma complication type: with acute exacerbation - Discharge Information Instructions: Chronic Obstructive Pulmonary Disease Exacerbation, [id number] Referrals: Arnulfo Gonsalez MD [Primary Care Provider] - Forms: ED Department Discharge Care Plan Goals: Increase prednisone by 20 mg today tomorrow and the third day. Continue with your nebulizers and anti-anxiety medicines as prescribed. Return if not improving satisfactorily. You will be informed of your urine culture results when available in a few days. - My Orders Last 24 Hours: My Active Orders 04/08/17 11:42 RT Aerosol Therapy [RC] ASDIRECTED 04/08/17 12:46 CULTURE URINE [RM] Stat - Assessment/Plan Last 24 Hours: My Active Orders 04/08/17 11:42 RT Aerosol Therapy [RC] ASDIRECTED 04/08/17 12:46 CULTURE URINE [RM] Stat
== END 2017-04-08 13:12 | disposition home or self-care (01) ==
LOC: JP.ED 10:45
DX: J45.41 Moderate persistent asthma with (acute) exacerbation (principal); J44.9 Chronic obstructive pulmonary disease, unspecified; F41.9 Anxiety disorder, unspecified; I11.0 Hypertensive heart disease with heart failure; E11.9 Type 2 diabetes mellitus without complications; I50.30 Unspecified diastolic (congestive) heart failure; E66.9 Obesity, unspecified; F32.9 Major depressive disorder, single episode, unspecified; Z86.2 Personal history of diseases of the blood and blood-forming organs and certain disorders involving the immune mechanism; Z87.891 Personal history of nicotine dependence; Z79.4 Long term (current) use of insulin; Z79.82 Long term (current) use of aspirin; Z79.899 Other long term (current) drug therapy; Z88.1 Allergy status to other antibiotic agents
CPT/HCPCS: 81001; 87086; 87088; 87186; 94640; 99285; J7620

== ENCOUNTER 2017-04-16 18:01 | Emergency (ER) | payer BC, MEDICAID ==
--- NOTE | 2017-04-16 18:56 | EDM.PDOC ---
ED HPI GENERAL MEDICAL PROBLEM - General Chief Complaint: Respiratory Problem Stated Complaint: SOB Time Seen by Provider: 04/16/17 18:40 Source of Information: Reports: Patient, Family History Limitations: Reports: No Limitations - History of Present Illness INITIAL COMMENTS - FREE TEXT/NARRATIVE: 61-year-old female with increasing shortness of breath despite a prednisone burst, 2 separate antibiotics and continuing nebulizers. She claims she can't keep her saturations above 90-91% on 3 L of oxygen. Nonproductive cough and no fever. She's been seen in the clinic twice this week. She is having increasing pain across her upper back and has a known T5 compression fracture, some pain is radiating into the right shoulder. She has no pleuritic pain. Severity: Moderate Associated Symptoms: Reports: Cough, Malaise, Shortness of Breath, Weakness. Denies: Chest Pain, Fever/Chills, Headaches Right Shoulder Pain Score (Numeric/FACES): 10 - Related Data Allergies Allergy/AdvReac Type Severity Reaction Status Date / Time cephalexin monohydrate Allergy Unknown flusing Verified 04/16/17 19:37 [From Keflex] levofloxacin [Levofloxacin] Allergy Rash Verified 04/16/17 19:37 amoxicillin [Amoxicillin] AdvReac Vomiting Verified 04/16/17 19:37 amoxicillin trihydrate AdvReac Vomiting Verified 04/16/17 19:37 [From Augmentin] erythromycin base AdvReac Nausea and Verified 04/16/17 19:37 [Erythromycin Base] Vomiting potassium clavulanate AdvReac Vomiting Verified 04/16/17 19:37 [From Augmentin] Home Meds: Home Meds Albuterol [Ventolin HFA] 2 puff INH ASDIRECTED PRN 03/01/13 [History] Escitalopram [Lexapro] 30 mg PO BEDTIME 03/01/13 [History] Ipratropium/Albuterol Sulfate [Duoneb 0.5 MG-3 MG/3 ML] 3 ml INH QID 03/01/13 [ History] Metoprolol Succinate [Toprol XL] 25 mg PO BEDTIME 03/01/13 [History] Verapamil HCl [Verelan] 180 mg PO BIDAC 03/01/13 [History] Aspirin 81 mg PO DAILY 08/30/13 [History] Simvastatin [Zocor] 10 mg PO BEDTIME 08/30/13 [History] Magnesium Oxide 400 mg PO BID 09/01/13 [History] Lactobacillus Acidophilus [Probiotic] 1 cap PO BID 04/05/14 [History] Cyclobenzaprine [Flexeril] 10 mg PO TID PRN 09/27/14 [History] Folic Acid 1 mg PO DAILY 09/27/14 [History] metFORMIN [Glucophage] 850 mg PO BID 09/27/14 [History] Gabapentin [Neurontin] 300 mg PO BID 03/28/15 [History] Lisinopril 20 mg PO DAILY 03/28/15 [History] Oxybutynin [Oxybutynin ER] 10 mg PO DAILY 03/28/15 [History] Promethazine [Phenergan] 25 mg PO Q8H PRN 03/28/15 [History] traZODone 50 mg PO BEDTIME 03/28/15 [History] Potassium Chloride [Klor-Con M20] 20 meq PO BID #60 tab.er 07/29/15 [Rx] Cyanocobalamin (Vitamin B12) [Vitamin B12] 1,000 mcg IM Q30D 09/26/15 [History] Ergocalciferol (Vitamin D2) [Vitamin D2] 50,000 unit PO WEEKLY 09/26/15 [History ] Ferrous Sulfate 325 mg PO DAILY 09/26/15 [History] Fluticasone/Salmeterol [Advair Diskus 500-50] 1 puff INH BID 12/05/15 [History] azaTHIOprine [Azathioprine] 150 mg PO DAILY 12/05/15 [History] Isosorbide Mononitrate [Isosorbide Mononitrate ER] 30 mg PO DAILY 04/12/16 [ History] Insulin Aspart [NovoLOG] 12 unit SUBCUT QIDACANDBED 06/05/16 [History] Pantoprazole [ProTONIX] 40 mg PO DAILY 07/13/16 [History] Insulin Detemir [Levemir Flextouch] 30 units SQ BID #300 ml 08/28/16 [Rx] Prednisone [IJD: predniSONE] 20 mg PO DAILY 10/28/16 [History] Spironolactone [Aldactone] 25 mg PO DAILY #30 tablet 12/27/16 [Rx] ALPRAZolam [Alprazolam] 0.25 mg PO ASDIRECTED PRN 02/22/17 [History] Bumetanide [Bumex] 3 mg PO BID #0 tablet 03/20/17 [Rx] Morphine 15 mg PO Q4H PRN #10 tablet 03/27/17 [Rx] Clotrimazole [Mycelex] 1 tab PO TID 04/08/17 [History] Insulin Regular, Human [NovoLIN R] 1 units SUBCUT QIDACANDBED PRN 04/08/17 [ History] Sucralfate [Sucralfate] 1 tab PO QID 04/08/17 [History] Cefdinir [Omnicef] 1 cap PO ASDIRECTED 04/16/17 [History] Clindamycin HCl 1 cap PO ASDIRECTED 04/16/17 [History] Past Medical History HEENT History: Reports: Cataract, Impaired Vision Cardiovascular History: Reports: Angina, Heart Failure, Hypertension, SOB on Exertion, Other (See Below) Other Cardiovascular History: diastolic congestive heart failure Respiratory History: Reports: Asthma, Bronchitis, Recurrent, COPD, Pneumonia, Recurrent, SOB, Other (See Below) Other Respiratory History: Home 3l O2 and nebs Gastrointestinal History: Reports: Cholelithiasis, GERD, Other (See Below) Other Gastrointestinal History: history of bezoars Genitourinary History: Reports: Diabetic Nephropathy, Urinary Incontinence, Other (See Below) Other Genitourinary History: mass by bladder taken out in 2007 non cancer 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, , 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 Musculoskeletal History: Reports: Back Pain, Chronic, Osteoarthritis, RA Neurological History: Reports: Neuropathy, Diabetic Psychiatric History: Reports: Anxiety, Depression, Panic Attack, Psych Hospitalization(s) Endocrine/Metabolic History: Reports: Diabetes, Type II, Obesity/BMI 30+, Osteoporosis Hematologic History: Reports: Anemia, B12 Deficiency Immunologic History: Reports: Immunosuppression, Other (See Below) Other Immunologic History: on medication that affects immunity Oncologic (Cancer) History: Reports: None Dermatologic History: Reports: Other (See Below) Other Dermatologic History: chronic sore left arm - Infectious Disease History Infectious Disease History: Reports: Chicken Pox, Helicobacter Pylori, Influenza , Measles, Mononucleosis, Mumps - Past Surgical History HEENT Surgical History: Reports: Cataract Surgery, Tonsillectomy Cardiovascular Surgical History: Reports: None Respiratory Surgical History: Reports: None GI Surgical History: Reports: Cholecystectomy, Colonoscopy, EGD Female Surgical History: Reports: Breast Biopsy, Hysterectomy, Tubal Ligation Endocrine Surgical History: Reports: None Neurological Surgical History: Reports: None Musculoskeletal Surgical History: Reports: Knee Replacement Oncologic Surgical History: Reports: None Dermatological Surgical History: Reports: None Social & Family History - Family History Family Medical History: Noncontributory HEENT: Reports: Cataract Cardiac: Reports: CAD Respiratory: Reports: Asthma : Reports: Other (See Below) Other Family History: mom kidney CA Musculoskeletal: Reports: Arthritis, RA Neurological: Reports: CVA, Seizure Endocrine/Metabolic: Reports: Diabetes, type II - Tobacco Use Smoking Status *Q: Former Smoker Years of Tobacco use: 15 Packs/Tins Daily: 1 Used Tobacco, but Quit: Yes Month Tobacco Last Used: dec Second Hand Smoke Exposure: No - Caffeine Use Caffeine Use: Reports: Soda Other Caffeine Use: 3 bottles a day Caffeine Use Comment: 2-3 daily - Alcohol Use Days Per Week of Alcohol Use: 0 - Recreational Drug Use Recreational Drug Use: No - Living Situation & Occupation Living situation: Reports: , with Spouse, Other (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 Denies: Fever, Chills HEENT: Reports: Eye Discharge (A recent eye infection for which she is taking clindamycin). Denies: Rhinitis Respiratory: Reports: Shortness of Breath, Cough. Denies: Sputum Cardiovascular: Reports: Dyspnea on Exertion. Denies: Chest Pain GI/Abdominal: Denies: Abdominal Pain, Nausea, Vomiting : Reports: Other Skin: Reports: Other (diffuse erythema of the face) Psychiatric: Reports: Anxiety ED EXAM, GENERAL - Physical Exam Exam: See Below Exam Limited By: No Limitations General Appearance: Alert, Mild Distress (Looks more dyspneic than her presentation one week ago) Eye Exam: Bilateral Eye: Conjunctival Injection (Some bilateral conjunctival injection, slightly worse on the right) Respiratory/Chest: No Respiratory Distress, Rhonchi (PhysicalA few scattered rhonchi are heard, no significant wheezing or decreased basilar breath sounds) Cardiovascular: Regular Rate, Rhythm GI/Abdominal: Other (Morbidly obese abdomen, nontender) Extremities: No: Pedal Edema Neurological: Alert, Oriented Psychiatric: Anxious Skin Exam: Warm, Dry, Other (Facial erythema is present) Course - Vital Signs Last Recorded V/S: Last Vital Signs Temp 98.5 F 04/16/17 19:28 Pulse 80 04/16/17 19:28 Resp 17 04/16/17 19:28 BP 153/71 H 04/16/17 19:28 Pulse Ox 93 L 04/16/17 19:28 - Orders/Labs/Meds Orders: Active Orders 24 hr Category Date Time Status Chest 1V Frontal [CR] Stat Exams 04/16/17 18:52 Taken Labs: Laboratory Tests 04/16/17 04/16/17 Range/Units 19:25 19:25 WBC 11.3 H (4.5-11.0) K/uL RBC 4.19 (3.30-5.50) M/uL Hgb 11.7 L (12.0-15.0) g/dL Hct 38.2 (36.0-48.0) % MCV 91 (80-98) fL MCH 28 (27-31) pg MCHC 31 L (32-36) % Plt Count 330 (150-400) K/uL Add Manual Diff Yes Neutrophils % (Manual) 77 H (36-66) % Band Neutrophils % 3 L (5-11) % Lymphocytes % (Manual) 18 L (24-44) % Monocytes % (Manual) 2 (2-6) % Sodium 143 (140-148) mmol/L Potassium 4.6 (3.6-5.2) mmol/L Chloride 102 (100-108) mmol/L Carbon Dioxide 32 (21-32) mmol/L Anion Gap 8.8 (5.0-14.0) mmol/L BUN 25 H (7-18) mg/dL Creatinine 1.1 H (0.6-1.0) mg/dL Est Cr Clr Drug Dosing 49.00 mL/min Estimated GFR (MDRD) 50 L (>60) Glucose 240 H (74-106) mg/dL Calcium 9.7 (8.5-10.1) mg/dL Meds: Medications Discontinued Medications Generic Name Dose Route Start Last Admin Trade Name Freq PRN Reason Stop Dose Admin Sodium Chloride 1,000 mls @ 0 mls/hr 04/16/17 19:00 04/16/17 19:16 Normal Saline IV 25 mls/hr ASDIRECTED OSMEL Administration KVO Insulin Detemir 30 unit 04/16/17 20:55 04/16/17 21:07 Levemir SUBCUT 04/16/17 20:56 30 units ONETIME ONE Administration Insulin Human Regular 12 unit 04/16/17 20:55 04/16/17 21:06 Novolin R SUBCUT 04/16/17 20:56 12 units ONETIME ONE Administration Protocol - Re-Assessments/Exams Free Text/Narrative Re-Assessment/Exam: 04/16/17 18:58 A portable chest x-ray was obtained. A CBC, BMP were also obtained. 04/16/17 20:42 Portable chest shows no definite infiltrate or congestive heart failure. CBC shows a white count of 11.3, hemoglobin 11.7. Electrolytes are normal other than glucose being 240, creatinine is 1.1 and GFR 50. These are all actually good results compared to her baseline. She does have marked difficulty with desaturation with any activity however and is convinced that she needs some IV therapy to get strong enough to go home. We have no beds available in the hospital and I called [facility] who did a very good consult on her a year ago and Dr. Ponce was kind enough to accept the patient in transfer. I think it would be very beneficial to get a cardiology, pulmonology and possibly endocrinology consultation on this patient as we have been trying to get some consults for the last year and the patient has declined. She will be transferred by EMS. Departure - Departure Time of Disposition: 21:15 Disposition: DC/Tfer to Other 70 Condition: Poor Clinical Impression: Morbid obesity with BMI of 45.0-49.9, adult, Anxiety COPD (chronic obstructive pulmonary disease) Qualifiers: COPD type: unspecified COPD Qualified Code(s): J44.9 - Chronic obstructive pulmonary disease, unspecified Chronic pain Qualifiers: Chronic pain type: other chronic pain Qualified Code(s): G89.29 - Other chronic pain CHF (congestive heart failure) Qualifiers: Congestive heart failure type: combined Congestive heart failure chronicity: acute on chronic Qualified Code(s): I50.43 - Acute on chronic combined systolic (congestive) and diastolic (congestive) heart failure - Discharge Information Referrals: Arnulfo Gonsalez MD [Primary Care Provider] - Forms: ED Department Discharge Care Plan Goals: Patient will be transferred to [facility] in [place] for comprehensive medical treatment including pulmonology, cardiology, and possibly endocrinology. - My Orders Last 24 Hours: My Active Orders 04/16/17 18:52 Chest 1V Frontal [CR] Stat - Assessment/Plan Last 24 Hours: My Active Orders 04/16/17 18:52 Chest 1V Frontal [CR] Stat
[2017-04-16] MEDS ORDERED: Sodium Chloride 0.9% 1,000 ML IV SCH (19:00)
[2017-04-16 19:30] VITALS: BP 153/71
[2017-04-16] MEDS ORDERED: Insulin Regular, Human 100 Units/ML 10 ML Vial SUBCUT ONE (20:55)
[2017-04-16] MEDS ORDERED: Insulin Detemir 100 Units/ML 3 ML Pen SUBCUT ONE (20:55)
--- NOTE | 2017-04-17 08:39 | CR ---
Mild cardiomegaly. Left subclavian catheter. No focal consolidation.
== END 2017-04-16 21:25 | disposition other institution (70) ==
LOC: JP.ED 18:01
DX: I11.0 Hypertensive heart disease with heart failure (principal); I50.43 Acute on chronic combined systolic (congestive) and diastolic (congestive) heart failure; J44.9 Chronic obstructive pulmonary disease, unspecified; G89.29 Other chronic pain; F41.9 Anxiety disorder, unspecified; E66.01 Morbid (severe) obesity due to excess calories; Z68.42 Body mass index [BMI] 45.0-49.9, adult; E11.40 Type 2 diabetes mellitus with diabetic neuropathy, unspecified; F41.0 Panic disorder [episodic paroxysmal anxiety]; F32.9 Major depressive disorder, single episode, unspecified; K21.9 Gastro-esophageal reflux disease without esophagitis; Z87.891 Personal history of nicotine dependence; Z79.82 Long term (current) use of aspirin; Z79.4 Long term (current) use of insulin; Z79.899 Other long term (current) drug therapy; Z88.1 Allergy status to other antibiotic agents
CPT/HCPCS: 36415; 71010; 80048; 85025; 96360; 96361; 99285; A9270; C1751; J7040

== ENCOUNTER 2017-05-19 17:26 | Inpatient (IN) | payer BC, MEDICAID ==
[2017-05-19] MEDS ORDERED: Acetaminophen 325 MG Tab PO PRN (17:37)
[2017-05-19] MEDS ORDERED: Polyethylene Glycol 3350 Powder 17 GM Packet PO PRN (17:37)
[2017-05-19] MEDS ORDERED: Albuterol 0.083% 2.5 MG/3 ML Neb Soln NEB PRN (17:37)
[2017-05-19] MEDS ORDERED: Sodium Chloride 0.9% 10 ML Syringe FLUSH PRN (17:37)
[2017-05-19] MEDS ORDERED: Promethazine 25 MG Tab PO PRN (17:41)
[2017-05-19] MEDS ORDERED: Cyclobenzaprine 10 MG Tab PO PRN (17:41)
[2017-05-19] MEDS ORDERED: Bumetanide 2.5 MG/10 ML MDV IVPUSH ONE (18:00)
--- NOTE | 2017-05-19 18:59 | PCM.HP ---
H&P History of Present Illness - General Date of Service: 05/19/17 Admit Problem/Dx: Admission Diagnosis/Problem Admission Diagnosis/Problem CHF, Congestive heart failure Source of Information: Patient, Provider History Limitations: Reports: No Limitations - History of Present Illness Initial Comments - Free Text/Narative: Dipti presents as a direct admission from the clinic. She presented there with 5 days of progressive shortness of breath, especially with exertion. She was concerned about increasing fluid in her body and did take extra bumetanide throughout the weekend without any improvement in her symptoms. She has noticed some chest heaviness as well as lower extremity edema and abdominal distention. These are all signs that she has accumulated fluid based on history but she was hoping that with her increased diuretics at home she would be able to avoid hospitalization. She has not needed to go up on her supplemental oxygen but has avoided activity because she is so short of breath trying to do anything. She has a mild dry cough. No fevers or chills at home. No change in bowel or bladder function. Diabetes control has been stable. She does report some orthopnea. She has not had recent sick contacts. She reports no changes to her diet. Workup in the clinic was mostly remarkable for more than a 10 pound weight gain. Chest x-ray did not show effusion or evidence for infection. Vital signs were stable. She was admitted for management of heart failure that had failed increased doses of outpatient diuretics. Chest Pain Score (Numeric/FACES): 8 - Related Data Allergies/Adverse Reactions: Allergies Allergy/AdvReac Type Severity Reaction Status Date / Time cephalexin monohydrate Allergy Unknown flusing Verified 04/16/17 19:37 [From Keflex] levofloxacin [Levofloxacin] Allergy Rash Verified 04/16/17 19:37 amoxicillin [Amoxicillin] AdvReac Vomiting Verified 04/16/17 19:37 amoxicillin trihydrate AdvReac Vomiting Verified 04/16/17 19:37 [From Augmentin] erythromycin base AdvReac Nausea and Verified 04/16/17 19:37 [Erythromycin Base] Vomiting potassium clavulanate AdvReac Vomiting Verified 04/16/17 19:37 [From Augmentin] Home Medications: Home Meds Albuterol [Ventolin HFA] 2 puff INH ASDIRECTED PRN 03/01/13 [History] Escitalopram [Lexapro] 30 mg PO BEDTIME 03/01/13 [History] Ipratropium/Albuterol Sulfate [Duoneb 0.5 MG-3 MG/3 ML] 3 ml INH QID 03/01/13 [ History] Metoprolol Succinate [Toprol XL] 25 mg PO BEDTIME 03/01/13 [History] Verapamil HCl [Verelan] 180 mg PO BIDAC 03/01/13 [History] Aspirin 81 mg PO DAILY 08/30/13 [History] Simvastatin [Zocor] 10 mg PO BEDTIME 08/30/13 [History] Magnesium Oxide 400 mg PO BID 09/01/13 [History] Lactobacillus Acidophilus [Probiotic] 1 cap PO BID 04/05/14 [History] Cyclobenzaprine [Flexeril] 10 mg PO TID PRN 09/27/14 [History] Folic Acid 1 mg PO DAILY 09/27/14 [History] metFORMIN [Glucophage] 850 mg PO BID 09/27/14 [History] Gabapentin [Neurontin] 300 mg PO BID 03/28/15 [History] Lisinopril 20 mg PO DAILY 03/28/15 [History] Oxybutynin [Oxybutynin ER] 10 mg PO DAILY 03/28/15 [History] Promethazine [Phenergan] 25 mg PO Q8H PRN 03/28/15 [History] traZODone 50 mg PO BEDTIME 03/28/15 [History] Potassium Chloride [Klor-Con M20] 20 meq PO BID #60 tab.er 07/29/15 [Rx] Cyanocobalamin (Vitamin B12) [Vitamin B12] 1,000 mcg IM Q30D 09/26/15 [History] Ergocalciferol (Vitamin D2) [Vitamin D2] 50,000 unit PO WEEKLY 09/26/15 [History ] Ferrous Sulfate 325 mg PO DAILY 09/26/15 [History] Fluticasone/Salmeterol [Advair Diskus 500-50] 1 puff INH BID 12/05/15 [History] azaTHIOprine [Azathioprine] 150 mg PO DAILY 12/05/15 [History] Isosorbide Mononitrate [Isosorbide Mononitrate ER] 30 mg PO DAILY 04/12/16 [ History] Insulin Aspart [NovoLOG] 12 unit SUBCUT QIDACANDBED 06/05/16 [History] Pantoprazole [ProTONIX] 40 mg PO DAILY 07/13/16 [History] Insulin Detemir [Levemir Flextouch] 30 units SQ BID #300 ml 08/28/16 [Rx] Prednisone [IJD: predniSONE] 20 mg PO DAILY 10/28/16 [History] Spironolactone [Aldactone] 25 mg PO DAILY #30 tablet 12/27/16 [Rx] ALPRAZolam [Alprazolam] 0.25 mg PO ASDIRECTED PRN 02/22/17 [History] Bumetanide [Bumex] 3 mg PO BID #0 tablet 03/20/17 [Rx] Morphine 15 mg PO Q4H PRN #10 tablet 03/27/17 [Rx] Clotrimazole [Mycelex] 1 tab PO TID 04/08/17 [History] Insulin Regular, Human [NovoLIN R] 1 units SUBCUT QIDACANDBED PRN 04/08/17 [ History] Sucralfate [Sucralfate] 1 tab PO QID 04/08/17 [History] Cefdinir [Omnicef] 1 cap PO ASDIRECTED 04/16/17 [History] Clindamycin HCl 1 cap PO ASDIRECTED 04/16/17 [History] Past Medical History HEENT History: Reports: Cataract, Impaired Vision Cardiovascular History: Reports: Angina, Heart Failure, Hypertension, SOB on Exertion, Other (See Below) Other Cardiovascular History: diastolic congestive heart failure Respiratory History: Reports: Asthma, Bronchitis, Recurrent, COPD, Pneumonia, Recurrent, SOB, Other (See Below) Other Respiratory History: Home 2-3l O2 and nebs Gastrointestinal History: Reports: Cholelithiasis, GERD, Other (See Below) Other Gastrointestinal History: history of bezoars Genitourinary History: Reports: Diabetic Nephropathy, Urinary Incontinence, Other (See Below) Other Genitourinary History: mass by bladder taken out in 2007 non cancer [employer] 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, , Spontaneous Musculoskeletal History: Reports: Back Pain, Chronic, Osteoarthritis, RA Neurological History: Reports: Neuropathy, Diabetic Psychiatric History: Reports: Anxiety, Depression, Panic Attack, Psych Hospitalization(s) Endocrine/Metabolic History: Reports: Diabetes, Type II, Obesity/BMI 30+, Osteoporosis Hematologic History: Reports: Anemia, B12 Deficiency Immunologic History: Reports: Immunosuppression, Other (See Below) Other Immunologic History: on medication that affects immunity Oncologic (Cancer) History: Reports: None Dermatologic History: Reports: Other (See Below) Other Dermatologic History: chronic sore left arm - Infectious Disease History Infectious Disease History: Reports: Chicken Pox, Helicobacter Pylori, Influenza , Measles, Mononucleosis, Mumps - Past Surgical History HEENT Surgical History: Reports: Cataract Surgery, Tonsillectomy Other HEENT Surgeries/Procedures: right eye surgery Cardiovascular Surgical History: Reports: None Respiratory Surgical History: Reports: None GI Surgical History: Reports: Cholecystectomy, Colonoscopy, EGD Female Surgical History: Reports: Breast Biopsy, Hysterectomy, Tubal Ligation Endocrine Surgical History: Reports: None Neurological Surgical History: Reports: None Musculoskeletal Surgical History: Reports: Knee Replacement Oncologic Surgical History: Reports: None Dermatological Surgical History: Reports: None Social & Family History - Family History Family Medical History: Noncontributory HEENT: Reports: Cataract Cardiac: Reports: CAD Respiratory: Reports: Asthma : Reports: Other (See Below) Other Family History: mom kidney CA Musculoskeletal: Reports: Arthritis, RA Neurological: Reports: CVA, Seizure Endocrine/Metabolic: Reports: Diabetes, type II - Tobacco Use Smoking Status *Q: Never Smoker Years of Tobacco use: 15 Packs/Tins Daily: 1 Used Tobacco, but Quit: Yes Month Tobacco Last Used: dec Second Hand Smoke Exposure: No - Caffeine Use Caffeine Use: Reports: Soda Other Caffeine Use: 3 bottles a day Caffeine Use Comment: 2-3 daily - Alcohol Use Days Per Week of Alcohol Use: 0 - Recreational Drug Use Recreational Drug Use: No - Living Situation & Occupation Living situation: Reports: , with Spouse, Other (Her son is her PHARMACEUTICAL LABORATORY TECHNICIAN care provider) Occupation: Disabled H&P Review of Systems - Review of Systems: Review Of Systems: See Below Free Text/Narrative: A complete 12 point review of systems was obtained. Pertinent positives and negatives are noted in the history of present illness. All other systems were reviewed and were negative except as noted. Exam - Exam Exam: See Below - Vital Signs Vital Signs: Last Vital Signs Temp 37.1 C 05/19/17 17:38 Pulse 97 05/19/17 17:38 Resp 22 H 05/19/17 17:38 BP 134/67 05/19/17 17:38 Pulse Ox 97 12/18/17 17:38 Weight: 139.253 kg - Exam Quality Assessment: Supplemental Oxygen General: Alert, Oriented, Cooperative, Mild Distress HEENT: Conjunctiva Clear, Mucosa Moist & [place]. No: Scleral Icterus Neck: Supple, Trachea Midline, JVD. No: Lymphadenopathy Lungs: Normal Respiratory Effort, Crackles (Rare right lower lung). No: Wheezing Cardiovascular: Regular Rate, Regular Rhythm. No: Systolic Murmur GI/Abdominal Exam: Soft, Non-Tender, No Distention Back Exam: Normal Inspection, Full Range of Motion Extremities: Pedal Edema (Mild bilateral ankle edema). No: Joint Swelling, Increased Warmth Peripheral Pulses: 2+: Dorsalis Pedis (L), Dorsalis Pedis (R) Skin: Warm, Dry Neuro Extensive - Mental Status: Alert, Oriented x3, Nl Response to Commands Neuro Extensive - Motor, Sensory, Reflexes: CN II-XII Intact. No: Abnormal Reflexes, Abnormal Motor, Tremor Psychiatric: Alert, Normal Affect - Patient Data Imaging Impressions Last 24 hrs: Chest x-ray - clinic images personally reviewed - I don't appreciate any mass, infiltrate or effusion. No significant cephalization. Pulmonary vasculature appears at baseline. *Q Meaningful Use (ADM) - VTE *Q VTE Criteria *Q: - VTE Risk Assess *Q Each Risk Factor Represents 1 Point: Swollen Legs, Current, Obesity ( BMI > 25 kg/m2), Congestive heart failure (CHF), Abnormal Pulmonary Function (COPD) Total Score 1 Point Risk Factors: 4 Each Risk Factor Represents 2 Points: Age 60 - 74 Years, Central venous access Total Score 2 Point Risk Factors: 4 Each Risk Factor Represents 3 Points: None Total Score 3 Point Risk Factors: 0 Each Risk Factor Represents 5 Points: None Total Score 5 Point Risk Factors: 0 Venous Thromboembolism Risk Factor Score *Q: 8 - Stroke *Q Stroke Criteria *Q: - AMI *Q AMI Criteria *Q: - Problem List (1) (HFpEF) heart failure with preserved ejection fraction SNOMED Code(s): 89974571 ICD Code: I50.30 - UNSPECIFIED DIASTOLIC (CONGESTIVE) HEART FAILURE Status : Acute Current Visit: No (2) COPD (chronic obstructive pulmonary disease) SNOMED Code(s): 55262527 ICD Code: J44.9 - CHRONIC OBSTRUCTIVE PULMONARY DISEASE, UNSPECIFIED Status : Chronic Priority: High Current Visit: No Qualifiers: COPD type: unspecified COPD (3) Diabetes mellitus type 2 SNOMED Code(s): 40722387 ICD Code: E11.9 - TYPE 2 DIABETES MELLITUS WITHOUT COMPLICATIONS Status: Chronic Priority: High Current Visit: No (4) Rheumatoid arthritis SNOMED Code(s): 64491416 ICD Code: M06.9 - RHEUMATOID ARTHRITIS, UNSPECIFIED Status: Chronic Priority: Medium Current Visit: No Qualifiers: Rheumatoid arthritis location: unspecified site Rheumatoid factor presence : unspecified presence Qualified Code(s): M06.9 - Rheumatoid arthritis, unspecified (5) Morbid obesity with BMI of 45.0-49.9, adult SNOMED Code(s): 881714015 ICD Code: E66.01 - MORBID (SEVERE) OBESITY DUE TO EXCESS CALORIES; Z68.42 - BODY MASS INDEX (BMI) 45.0-49.9, ADULT Status: Chronic Current Visit: No Problem List Initiated/Reviewed/Updated: Yes Orders Last 24hrs: Active Orders 24 hr Category Date Time Status Patient Status [ADT] Routine ADT 05/19/17 17:37 Active Communication Order [RC] PRN Care 05/19/17 17:37 Active Communication Order [RC] PRN Care 05/19/17 17:37 Active Diabetes Education [RC] Click to Edit Care 05/19/17 17:37 Active Height and Weight [RC] DAILY Care 05/19/17 17:37 Active Intake and Output [RC] QSHIFT Care 05/19/17 17:39 Active Notify Provider Vital Signs [RC] ASDIRECTED Care 05/19/17 17:39 Active Notify Provider [RC] PRN Care 05/19/17 17:40 Active Oxygen Therapy [RC] PRN Care 05/19/17 17:37 Active RT Aerosol Therapy [RC] ASDIRECTED Care 05/19/17 17:41 Active Up ad Susan [RC] ASDIRECTED Care 05/19/17 17:37 Active VTE/DVT Education [RC] Per Unit Routine Care 05/19/17 17:37 Active Vital Signs [RC] Q4H Care 05/19/17 17:37 Active Consistent Carbohydrate Diet [DIET] Diet 05/20/17 Breakfast Active BASIC METABOLIC PANEL,BMP [CHEM] AM Lab 05/20/17 05:11 Ordered GLUCOSE POC LAB TO COLLECT [POC] QIDACANDBED Lab 05/19/17 21:00 Ordered GLUCOSE POC LAB TO COLLECT [POC] QIDACANDBED Lab 05/20/17 07:30 Ordered GLUCOSE POC LAB TO COLLECT [POC] QIDACANDBED Lab 05/20/17 11:30 Ordered GLUCOSE POC LAB TO COLLECT [POC] QIDACANDBED Lab 05/20/17 16:30 Ordered GLUCOSE POC LAB TO COLLECT [POC] QIDACANDBED Lab 05/20/17 21:00 Ordered GLUCOSE POC LAB TO COLLECT [POC] QIDACANDBED Lab 05/21/17 07:30 Ordered GLUCOSE POC LAB TO COLLECT [POC] QIDACANDBED Lab 05/21/17 11:30 Ordered GLUCOSE POC LAB TO COLLECT [POC] QIDACANDBED Lab 05/21/17 16:30 Ordered GLUCOSE POC LAB TO COLLECT [POC] QIDACANDBED Lab 05/21/17 21:00 Ordered GLUCOSE POC LAB TO COLLECT [POC] QIDACANDBED Lab 05/22/17 07:30 Ordered GLUCOSE POC LAB TO COLLECT [POC] QIDACANDBED Lab 05/22/17 11:30 Ordered GLUCOSE POC LAB TO COLLECT [POC] QIDACANDBED Lab 05/22/17 16:30 Ordered GLUCOSE POC LAB TO COLLECT [POC] QIDACANDBED Lab 05/22/17 21:00 Ordered GLUCOSE POC LAB TO COLLECT [POC] QIDACANDBED Lab 05/23/17 07:30 Ordered GLUCOSE POC LAB TO COLLECT [POC] QIDACANDBED Lab 05/23/17 11:30 Ordered GLUCOSE POC LAB TO COLLECT [POC] QIDACANDBED Lab 05/23/17 16:30 Ordered GLUCOSE POC LAB TO COLLECT [POC] QIDACANDBED Lab 05/23/17 21:00 Ordered GLUCOSE POC LAB TO COLLECT [POC] QIDACANDBED Lab 05/24/17 07:30 Ordered GLUCOSE POC LAB TO COLLECT [POC] QIDACANDBED Lab 05/24/17 11:30 Ordered GLUCOSE POC LAB TO COLLECT [POC] QIDACANDBED Lab 05/24/17 16:30 Ordered GLUCOSE POC LAB TO COLLECT [POC] QIDACANDBED Lab 05/24/17 21:00 Ordered GLUCOSE POC LAB TO COLLECT [POC] QIDACANDBED Lab 05/25/17 07:30 Ordered ALPRAZolam [Xanax] Med 05/19/17 17:41 Ordered 0.25 mg PO BID PRN Acetaminophen [Tylenol] Med 05/19/17 17:37 Active 650 mg PO Q4H PRN Albuterol [Proventil Neb Soln] Med 05/19/17 17:37 Active 2.5 mg NEB Q4H PRN Albuterol/Ipratropium [DuoNeb 3.0-0.5 MG/3 ML] Med 05/19/17 22:00 Pending 3 ml INH QID Aspirin Med 05/20/17 09:00 Ordered 81 mg PO DAILY Bumetanide [Bumex] Med 05/20/17 08:00 Active 3 mg IVPUSH BIDDIURETIC Cyclobenzaprine [Flexeril] Med 05/19/17 17:41 Ordered 10 mg PO TID PRN Docusate Sodium/Sennosides [Senna Plus] Med 05/19/17 17:37 Active 1 tab PO BID PRN Enoxaparin [Lovenox] Med 05/20/17 09:00 Pending 40 mg SUBCUT DAILY Escitalopram [Lexapro] Med 05/19/17 21:00 Ordered 30 mg PO BEDTIME Fluticasone/Salmeterol [Advair Diskus 500-50] Med 05/19/17 21:00 Ordered 1 puff INH BID Folic Acid Med 05/20/17 09:00 Ordered 1 mg PO DAILY Gabapentin [Neurontin] Med 05/19/17 21:00 Ordered 300 mg PO BID Insulin Aspart [NovoLOG] Med 05/19/17 18:00 Ordered 12 unit SUBCUT TIDAC Insulin Aspart [NovoLOG] Med 05/19/17 20:00 Active See Protocol SUBCUT QIDACANDBED Insulin Detemir [Levemir] Med 05/19/17 21:00 Ordered 30 unit SUBCUT BID Isosorbide Mononitrate [Imdur] Med 05/20/17 09:00 Ordered 30 mg PO DAILY Lactobacillus Acidophilus [Probiotic] Med 05/19/17 21:00 Ordered 1 cap PO BID Lisinopril [Prinivil] Med 05/20/17 09:00 Ordered 20 mg PO DAILY Magnesium Oxide Med 05/19/17 21:00 Ordered 400 mg PO BID Metoprolol Succinate [Toprol XL] Med 05/19/17 21:00 Ordered 25 mg PO BEDTIME Morphine Med 05/19/17 17:41 Ordered 15 mg PO Q4H PRN Ondansetron [Zofran ODT] Med 05/19/17 17:37 Active 4 mg PO Q6H PRN Oxybutynin [Oxybutynin ER] Med 05/20/17 09:00 Ordered 10 mg PO DAILY Pantoprazole [ProTONIX] Med 05/20/17 09:00 Ordered 40 mg PO DAILY Polyethylene Glycol 3350 [MiraLAX] Med 05/19/17 17:37 Active 17 gm PO DAILY PRN Potassium Chloride [Klor-Con M20] Med 05/19/17 21:00 Ordered 20 meq PO BID Promethazine [Phenergan] Med 05/19/17 17:41 Ordered 25 mg PO Q8H PRN Simvastatin [Zocor] Med 05/19/17 21:00 Ordered 10 mg PO BEDTIME Sodium Chloride 0.9% [Saline Flush] Med 05/19/17 17:37 Active 10 ml FLUSH ASDIRECTED PRN Spironolactone [Aldactone] Med 05/20/17 09:00 Ordered 25 mg PO DAILY Sucralfate [Carafate] Med 05/19/17 22:00 Ordered DOSE gm PO QID Verapamil HCl [Verelan] Med 05/20/17 07:30 Ordered 180 mg PO BIDAC azaTHIOprine [Imuran] Med 05/20/17 09:00 Ordered 150 mg PO DAILY metFORMIN [Glucophage] Med 05/19/17 21:00 Ordered 850 mg PO BID predniSONE Med 05/20/17 09:00 Ordered 20 mg PO DAILY traZODone Med 05/19/17 21:00 Ordered 50 mg PO BEDTIME Saline Lock Insert [OM.PC] Routine Oth 05/19/17 17:37 Ordered Resuscitation Status Routine Resus Stat 05/19/17 17:37 Ordered Medication Orders Acetaminophen (Tylenol) 650 mg PO Q4H PRN PRN Reason: Pain (Mild 1-3)/fever Albuterol (Proventil Neb Soln) 2.5 mg NEB Q4H PRN PRN Reason: Shortness Of Breath/wheezing Albuterol/Ipratropium (Duoneb 3.0-0.5 Mg/3 Ml) 3 ml INH QID [facility] Alprazolam (Xanax) 0.25 mg PO BID PRN PRN Reason: Anxiety Aspirin (Aspirin) 81 mg PO DAILY [facility] Azathioprine (Imuran) 150 mg PO DAILY [facility] Bumetanide (Bumex) 3 mg IVPUSH BIDDIURETIC [facility] Cyclobenzaprine HCl (Flexeril) 10 mg PO TID PRN PRN Reason: Pain Enoxaparin Sodium (Lovenox) 40 mg SUBCUT DAILY [facility] Escitalopram Oxalate (Lexapro) 30 mg PO BEDTIME [facility] Folic Acid (Folic Acid) 1 mg PO DAILY [facility] Gabapentin (Neurontin) 300 mg PO BID [facility] Insulin Aspart (Novolog) 0 unit SUBCUT QIDACANDBED [facility] PRN Reason: Protocol Insulin Aspart (Novolog) 12 unit SUBCUT TIDAC [facility] Insulin Detemir (Levemir) 30 unit SUBCUT BID [facility] Isosorbide Mononitrate (Imdur) 30 mg PO DAILY [facility] Lisinopril (Prinivil) 20 mg PO DAILY [facility] Magnesium Oxide (Magnesium Oxide) 400 mg PO BID [facility] Metformin HCl (Glucophage) 850 mg PO BID [facility] Metoprolol Succinate (Toprol Xl) 25 mg PO BEDTIME [facility] Morphine Sulfate (Morphine) 15 mg PO Q4H PRN PRN Reason: Pain Non-Formulary Medication (Fluticasone/Salmeterol [Advair Diskus 500-50]) 1 puff INH BID [facility] Non-Formulary Medication (Lactobacillus Acidophilus [Probiotic]) 1 cap PO BID [facility] Non-Formulary Medication (Oxybutynin [Oxybutynin Er]) 10 mg PO DAILY [facility] Non-Formulary Medication (Simvastatin [Zocor]) 10 mg PO BEDTIME [facility] Non-Formulary Medication (Verapamil Hcl [Verelan]) 180 mg PO BIDAC [facility] Ondansetron HCl (Zofran Odt) 4 mg PO Q6H PRN PRN Reason: Nausea able to take PO Pantoprazole Sodium (Protonix) 40 mg PO DAILY [facility] Polyethylene Glycol (Miralax) 17 gm PO DAILY PRN PRN Reason: Constipation Potassium Chloride (Klor-Con M20) 20 meq PO BID [facility] Prednisone (Prednisone) 20 mg PO DAILY [facility] Promethazine HCl (Phenergan) 25 mg PO Q8H PRN PRN Reason: Nausea Senna/Docusate Sodium (Senna Plus) 1 tab PO BID PRN PRN Reason: Constipation Sodium Chloride (Saline Flush) 10 ml FLUSH ASDIRECTED PRN PRN Reason: Keep Vein Open Spironolactone (Aldactone) 25 mg PO DAILY [facility] Sucralfate (Carafate) gm PO QID [facility] Trazodone HCl (Trazodone) 50 mg PO BEDTIME [facility] Assessment/Plan Comment:: ASSESSMENT AND PLAN - Acute on chronic congestive heart failure with preserved ejection fraction - weight is up more than 10 pounds from baseline and patient has abdominal distention and some lower extremity edema as well as JVD. Symptoms seem to be getting worse despite increased doses of outpatient diuretics. She would benefit from IV diuresis. No evidence for infection at this time. -IV bumetanide tonight and in the morning, reassess volume status after that -Daily weights -Continue medical management for congestive heart failure -Supplement oxygen as needed COPD - secondary to rheumatoid arthritis. No evidence for acute exacerbation at this time. She is prednisone dependent. -Scheduled and as needed nebulizers -Prednisone 20 mg daily -Continue Advair Insulin-dependent diabetes mellitus - sugars chronically not well controlled. -Continue home medications -Medium dose sliding scale insulin Morbid obesity with BMI greater than 40 - chronic issue. Weight >10 pounds higher than baseline. Maintenance issues - - DVT prophylaxis - enoxaparin - GI prophylaxis - PPI - Nutrition - low sodium consistent carbohydrate diet - Dougherty catheter - not indicated CODE STATUS - full code Admission justification - This patient will be admitted for inpatient services and is medically appropriate meeting medical necessity for inpatient admission as outlined in my documentation. I reasonably expect the patient will require inpatient services that span a period time over 2 midnights. I reasonably expect this patient to be discharged or transferred within 96 hours [facility] Disposition - anticipate discharge home in a few days Primary care physician - Dr. Sunshine Bolivar M.D.
[2017-05-19] MEDS: Morphine 15 MG Tab PO PRN (19:59)
[2017-05-19] MEDS ORDERED: Bumetanide 1 MG/4 ML MDV ONE (20:39)
[2017-05-19] MEDS: Formoterol/Mometasone 200-5 MCG 8.8 GM Inhaler IH SCH (20:46)
[2017-05-19] MEDS: Metoprolol Succinate 25 MG Tab.ER PO SCH (20:47)
[2017-05-19] MEDS: Simvastatin 20 MG Tab PO SCH (20:47)
[2017-05-19] MEDS: Lactobacillus Rhamnosus GG (Probiotic) Cap PO SCH (20:47)
[2017-05-19] MEDS: Insulin Detemir 100 Units/ML 3 ML Pen SUBCUT SCH (20:48)
[2017-05-19] MEDS: Gabapentin 300 MG Cap PO SCH (20:49)
[2017-05-19] MEDS: Magnesium Oxide 400 MG Tab PO SCH (20:49)
[2017-05-19] MEDS: Potassium Chloride 20 MEQ Tab.ER PO SCH (20:49)
[2017-05-19] MEDS: Escitalopram 10 MG Tab PO SCH (20:50)
[2017-05-19] MEDS: traZODone 50 MG Tab PO SCH (20:50)
[2017-05-19] MEDS: Insulin Aspart 100 Units/ML 3 ML Pen SUBCUT SCH ×2 (20:57→22:01)
[2017-05-19] MEDS: Sucralfate 1 GM Tab PO SCH (21:08)
[2017-05-19] MEDS: ALPRAZolam 0.25 MG Tab PO PRN (23:10)
[2017-05-19] MEDS: Albuterol/Ipratropium 3.0-0.5 MG/3 ML Neb Soln INH SCH (23:14)
[2017-05-20] MEDS: Morphine 15 MG Tab PO PRN ×3 (02:06→21:11)
[2017-05-20] MEDS: Albuterol/Ipratropium 3.0-0.5 MG/3 ML Neb Soln INH SCH ×6 (07:00→21:03)
[2017-05-20] MEDS: Verapamil 180 MG Tab.ER PO SCH ×3 (07:30→17:30)
[2017-05-20] MEDS: Lactobacillus Rhamnosus GG (Probiotic) Cap PO SCH ×3 (09:00→21:03)
[2017-05-20] MEDS: predniSONE 20 MG Tab PO SCH ×2 (09:00→17:27)
[2017-05-20] MEDS: Folic Acid 1 MG Tab PO SCH ×2 (09:00→17:26)
[2017-05-20] MEDS: Bumetanide 2.5 MG/10 ML MDV IVPUSH SCH ×3 (09:00→17:26)
[2017-05-20] MEDS: Isosorbide Mononitrate 30 MG Tab.ER PO SCH ×2 (09:00→17:39)
[2017-05-20] MEDS: Potassium Chloride 20 MEQ Tab.ER PO SCH ×3 (09:00→17:40)
[2017-05-20] MEDS: Aspirin 81 MG Tab.Chew PO SCH ×2 (09:00→17:26)
[2017-05-20] MEDS: Pantoprazole 40 MG Tab.CR PO SCH ×2 (09:00→17:40)
[2017-05-20] MEDS: Magnesium Oxide 400 MG Tab PO SCH ×3 (09:00→21:04)
[2017-05-20] MEDS: Insulin Detemir 100 Units/ML 3 ML Pen SUBCUT SCH ×3 (09:00→21:00)
[2017-05-20] MEDS: Oxybutynin 5 MG Tab PO SCH ×3 (09:00→21:04)
[2017-05-20] MEDS: Spironolactone 25 MG Tab PO SCH ×2 (09:00→17:26)
[2017-05-20] MEDS: Formoterol/Mometasone 200-5 MCG 8.8 GM Inhaler IH SCH ×2 (09:00→17:38)
[2017-05-20] MEDS: Gabapentin 300 MG Cap PO SCH ×3 (09:00→21:03)
[2017-05-20] MEDS: Lisinopril 20 MG Tab PO SCH ×2 (09:00→17:27)
[2017-05-20] MEDS: Insulin Aspart 100 Units/ML 3 ML Pen SUBCUT SCH ×7 (12:15→21:01)
--- NOTE | 2017-05-20 16:58 | PN ---
DATE OF SERVICE: 05/19/2017 SUBJECTIVE: No acute events overnight. The patient reports ongoing shortness of breath and fatigue, though she does feel a little bit better today than she did yesterday. She has some residual chest tightness, but thinks this is a little better today. No orthopnea reported. Blood sugars have been well controlled. She has not had any fevers. OBJECTIVE: VITAL SIGNS: Blood pressure is 133/63, her pulse is 80, temp is 98 degrees, respirations are 18, O2 sats 95% on 3 L. GENERAL: Resting comfortably, no acute distress. CARDIOVASCULAR: She has regular rate and rhythm. No murmur, rub, or gallop. RESPIRATORY: Lungs with only a rare crackle in the right lung base, but otherwise clear with no wheezing. ABDOMEN: Obese, nondistended. EXTREMITIES: Warm and well perfused with only trace bilateral ankle edema, but much better compared to yesterday. SKIN: She does not have any rashes. LABORATORY DATA: Sodium 143, potassium 4.0, creatinine is 0.8. ASSESSMENT AND PLAN: 1. Congestive heart failure with preserved ejection fraction. Clinically doing better with improving edema and respiratory status. Still some evidence for volume overload, though she has a fair amount better today. She still has a few more pounds to diurese off and will continue IV diuresis today. 2. Insulin-dependent diabetes mellitus. Blood sugars have been well controlled and usual medications will be continued. 3. Chronic obstructive pulmonary disease. No evidence for exacerbation. Usual home medications will be continued. 4. Maintenance issues. She will be on enoxaparin for deep venous thrombosis prophylaxis and PPI for gastrointestinal prophylaxis. DISPOSITION: Anticipate discharge to home in the next couple of days. Saran Bolivar MD /[id number]
[2017-05-20] MEDS: Sucralfate 1 GM Tab PO SCH ×2 (17:24→21:31)
[2017-05-20] MEDS ORDERED: Formoterol/Mometasone 200-5 MCG 8.8 GM Inhaler IH SCH (21:00)
[2017-05-20] MEDS: ALPRAZolam 0.25 MG Tab PO PRN (21:03)
[2017-05-20] MEDS: traZODone 50 MG Tab PO SCH (21:03)
[2017-05-20] MEDS: Enoxaparin 40 MG/0.4 ML Syringe SUBCUT SCH (21:04)
[2017-05-20] MEDS: Simvastatin 20 MG Tab PO SCH (21:04)
[2017-05-20] MEDS: Metoprolol Succinate 25 MG Tab.ER PO SCH (21:05)
[2017-05-20] MEDS: Escitalopram 10 MG Tab PO SCH (21:08)
[2017-05-21] MEDS: Ondansetron 4 MG Tab.DIS PO PRN ×2 (00:08→14:53)
[2017-05-21] MEDS: Sucralfate 1 GM Tab PO SCH ×2 (05:46→09:49)
[2017-05-21] MEDS: Albuterol/Ipratropium 3.0-0.5 MG/3 ML Neb Soln INH SCH ×4 (07:12→21:13)
[2017-05-21] MEDS: Insulin Aspart 100 Units/ML 3 ML Pen SUBCUT SCH ×7 (07:58→21:31)
[2017-05-21] MEDS: Verapamil 180 MG Tab.ER PO SCH ×2 (08:02→17:26)
[2017-05-21] MEDS: Isosorbide Mononitrate 30 MG Tab.ER PO SCH (08:03)
[2017-05-21] MEDS: Pantoprazole 40 MG Tab.CR PO SCH (08:04)
[2017-05-21] MEDS: Potassium Chloride 20 MEQ Tab.ER PO SCH ×2 (08:05→17:28)
[2017-05-21] MEDS: Aspirin 81 MG Tab.Chew PO SCH (08:06)
[2017-05-21] MEDS: Folic Acid 1 MG Tab PO SCH (08:06)
[2017-05-21] MEDS: Spironolactone 25 MG Tab PO SCH (08:06)
[2017-05-21] MEDS: Lactobacillus Rhamnosus GG (Probiotic) Cap PO SCH ×2 (08:06→20:55)
[2017-05-21] MEDS: Lisinopril 20 MG Tab PO SCH (08:07)
[2017-05-21] MEDS: Magnesium Oxide 400 MG Tab PO SCH ×2 (08:07→21:00)
[2017-05-21] MEDS: Gabapentin 300 MG Cap PO SCH ×2 (08:07→21:00)
[2017-05-21] MEDS: Oxybutynin 5 MG Tab PO SCH ×2 (08:07→21:01)
[2017-05-21] MEDS: predniSONE 20 MG Tab PO SCH (08:08)
[2017-05-21] MEDS: Insulin Detemir 100 Units/ML 3 ML Pen SUBCUT SCH ×2 (08:13→20:58)
[2017-05-21] MEDS: Formoterol/Mometasone 200-5 MCG 8.8 GM Inhaler IH SCH ×2 (09:00→20:53)
--- NOTE | 2017-05-21 09:26 | PCM.PN ---
- General Info Date of Service: 05/21/17 Functional Status: Reports: Pain Controlled, Tolerating Diet - Review of Systems General: Reports: Weakness Pulmonary: Reports: Shortness of Breath Cardiovascular: Reports: Chest Pain Systems Review Comment:: No acute events overnight. Good response to diuresis. She has not had any fevers. Minimal nonproductive cough seems to be improving. Previous chest tightness seems a little better. Blood sugars moderately elevated but stable. Lower extremity edema has resolved. Creatinine level has jumped from yesterday and diuretics will be held today. - Patient Data Vitals - Most Recent: Last Vital Signs Temp 36.3 C 05/21/17 07:00 Pulse 78 05/21/17 07:13 Resp 18 05/21/17 07:00 BP 104/51 L 05/21/17 08:07 Pulse Ox 99 05/21/17 07:00 Weight - Most Recent: 138.074 kg I&O - Last 24 Hours: Intake & Output 05/20/17 05/21/17 05/21/17 22:59 06:59 14:59 Intake Total 1160 480 480 Output Total 200 125 Balance 960 355 480 Lab Results Last 24 Hours: Laboratory Results - last 24 hr 05/20/17 05/21/17 05/21/17 Range/Units 04:31 05:47 05:47 WBC 13.4 H (4.5-11.0) K/uL RBC 3.94 (3.30-5.50) M/uL Hgb 11.2 L (12.0-15.0) g/dL Hct 37.2 (36.0-48.0) % MCV 94 (80-98) fL MCH 28 (27-31) pg MCHC 30 L (32-36) % Plt Count 337 (150-400) K/uL Sodium 143 141 (140-148) mmol/L Potassium 4.0 5.0 (3.6-5.2) mmol/L Chloride 101 101 (100-108) mmol/L Carbon Dioxide 34 H 33 H (21-32) mmol/L Anion Gap 8.4 12.0 (5.0-14.0) mmol/L BUN 20 H 38 H D (7-18) mg/dL Creatinine 0.9 1.6 H D (0.6-1.0) mg/dL Est Cr Clr Drug Dosing 59.89 33.69 mL/min Estimated GFR (MDRD) > 60 33 L (>60) Glucose 125 H 185 H (74-106) mg/dL Calcium 9.6 8.7 (8.5-10.1) mg/dL Med Orders - Current: Current Medications Acetaminophen (Tylenol) 650 mg PO Q4H PRN PRN Reason: Pain (Mild 1-3)/fever Albuterol (Proventil Neb Soln) 2.5 mg NEB Q4H PRN PRN Reason: Shortness Of Breath/wheezing Last Admin: 05/19/17 19:59 Dose: 2.5 mg Albuterol/Ipratropium (Duoneb 3.0-0.5 Mg/3 Ml) 3 ml INH QIDRT [facility] Last Admin: 05/21/17 07:12 Dose: 3 ml Alprazolam (Xanax) 0.25 mg PO BID PRN PRN Reason: Anxiety Last Admin: 05/20/17 21:03 Dose: 0.25 mg Aspirin (Aspirin) 81 mg PO DAILY [facility] Last Admin: 05/21/17 08:06 Dose: 81 mg Azathioprine (Imuran) 150 mg PO DAILY [facility] Last Admin: 05/21/17 08:07 Dose: 150 mg Bumetanide (Bumex) 3 mg PO BIDDIURETIC [facility] Cyclobenzaprine HCl (Flexeril) 10 mg PO TID PRN PRN Reason: Pain Last Admin: 05/21/17 00:08 Dose: 10 mg Enoxaparin Sodium (Lovenox) 40 mg SUBCUT BEDTIME [facility] Last Admin: 05/20/17 21:04 Dose: 40 mg Escitalopram Oxalate (Lexapro) 30 mg PO BEDTIME [facility] Last Admin: 05/20/17 21:08 Dose: 30 mg Folic Acid (Folic Acid) 1 mg PO DAILY [facility] Last Admin: 05/21/17 08:06 Dose: 1 mg Gabapentin (Neurontin) 300 mg PO BID [facility] Last Admin: 05/21/17 08:07 Dose: 300 mg Heparin Sodium (Porcine) (Heparin Lock Flush 100 Units/Ml) 500 units FLUSH ASDIRECTED PRN PRN Reason: Keep Vein Open Last Admin: 05/20/17 19:45 Dose: 500 units Insulin Aspart (Novolog) 0 unit SUBCUT QIDACANDBED [facility] PRN Reason: Protocol Last Admin: 05/21/17 07:58 Dose: 4 units Insulin Aspart (Novolog) 12 unit SUBCUT TIDAC [facility] Last Admin: 05/21/17 07:59 Dose: 12 units Insulin Detemir (Levemir) 30 unit SUBCUT BID [facility] Last Admin: 05/21/17 08:13 Dose: 30 unit Isosorbide Mononitrate (Imdur) 30 mg PO DAILY@0730 [facility] Last Admin: 05/21/17 08:03 Dose: 30 mg Lactobacillus Rhamnosus (Culturelle) 1 cap PO BID [facility] Last Admin: 05/21/17 08:06 Dose: 1 cap Lisinopril (Prinivil) 20 mg PO DAILY [facility] Last Admin: 05/21/17 08:07 Dose: 20 mg Magnesium Oxide (Magnesium Oxide) 400 mg PO BID [facility] Last Admin: 05/21/17 08:07 Dose: 400 mg Metformin HCl (Glucophage) 850 mg PO BIDMEALS [facility] Last Admin: 05/21/17 08:05 Dose: 850 mg Metoprolol Succinate (Toprol Xl) 25 mg PO BEDTIME [facility] Last Admin: 05/20/17 21:05 Dose: 25 mg Mometasone Furoate/Formoterol Fumar (Dulera 200-5 Mcg) 0 puff IH BIDRT [facility] Last Admin: 05/21/17 09:00 Dose: 2 puff Morphine Sulfate (Morphine) 15 mg PO Q4H PRN PRN Reason: Pain Last Admin: 05/20/17 21:11 Dose: 15 mg Ondansetron HCl (Zofran Odt) 4 mg PO Q6H PRN PRN Reason: Nausea able to take PO Last Admin: 05/21/17 00:08 Dose: 4 mg Oxybutynin Chloride (Oxybutynin) 5 mg PO BID [facility] Last Admin: 05/21/17 08:07 Dose: 5 mg Pantoprazole Sodium (Protonix) 40 mg PO DAILY@30 [facility] Last Admin: 05/21/17 08:04 Dose: 40 mg Polyethylene Glycol (Miralax) 17 gm PO DAILY PRN PRN Reason: Constipation Potassium Chloride (Klor-Con M20) 20 meq PO BIDMEALS [facility] Last Admin: 05/21/17 08:05 Dose: 20 meq Prednisone (Prednisone) 20 mg PO DAILY [facility] Last Admin: 05/21/17 08:08 Dose: 20 mg Promethazine HCl (Phenergan) 25 mg PO Q8H PRN PRN Reason: Nausea Senna/Docusate Sodium (Senna Plus) 1 tab PO BID PRN PRN Reason: Constipation Simvastatin (Zocor) 10 mg PO BEDTIME [facility] Last Admin: 05/20/17 21:04 Dose: 10 mg Sodium Chloride (Saline Flush) 10 ml FLUSH ASDIRECTED PRN PRN Reason: Keep Vein Open Spironolactone (Aldactone) 25 mg PO DAILY [facility] Last Admin: 05/21/17 08:06 Dose: 25 mg Sucralfate (Carafate) 1 gm PO QID [facility] Last Admin: 05/21/17 05:46 Dose: Not Given Trazodone HCl (Trazodone) 50 mg PO BEDTIME [facility] Last Admin: 05/20/17 21:03 Dose: 50 mg Verapamil HCl (Calan Sr) 180 mg PO BIDAC [facility] Last Admin: 05/21/17 08:02 Dose: 180 mg Discontinued Medications Bumetanide (Bumex) 4 mg IVPUSH ONETIME ONE Stop: 05/19/17 18:01 Last Admin: 05/19/17 21:08 Dose: Not Given Bumetanide (Bumex) 3 mg IVPUSH BIDDIURETIC [facility] Last Admin: 05/20/17 17:26 Dose: Not Given Bumetanide (Bumex) Confirm Administered Dose 1 mg .ROUTE .STK-MED ONE Stop: 05/19/17 20:40 Last Admin: 05/19/17 20:46 Dose: 1 mg Isosorbide Mononitrate (Imdur) 30 mg PO DAILY [facility] Last Admin: 05/20/17 17:39 Dose: Not Given Metformin HCl (Glucophage) 850 mg PO BID [facility] Last Admin: 05/20/17 17:38 Dose: Not Given Mometasone Furoate/Formoterol Fumar (Dulera 200-5 Mcg) 1 puff IH BID [facility] Last Admin: 05/20/17 17:38 Dose: Not Given Mometasone Furoate/Formoterol Fumar (Dulera 200-5 Mcg) 1 puff IH BID [facility] Last Admin: 05/20/17 21:02 Dose: 1 puff Mometasone Furoate/Formoterol Fumar (Dulera 200-5 Mcg) 0 puff IH BIDRT [facility] Pantoprazole Sodium (Protonix) 40 mg PO DAILY [facility] Last Admin: 05/20/17 17:40 Dose: Not Given Potassium Chloride (Klor-Con M20) 20 meq PO BID [facility] Last Admin: 05/20/17 17:40 Dose: Not Given - Exam Quality Assessment: Supplemental Oxygen General: Alert, Oriented, Cooperative, No Acute Distress Neck: Supple Lungs: Normal Respiratory Effort, Crackles (rare both bases) Cardiovascular: Regular Rate, Regular Rhythm GI/Abdominal Exam: Soft, No Distention Extremities: No Pedal Edema Psy/Mental Status: Alert, Normal Affect - Problem List & Annotations (1) (HFpEF) heart failure with preserved ejection fraction SNOMED Code(s): 80870107 Code(s): I50.30 - UNSPECIFIED DIASTOLIC (CONGESTIVE) HEART FAILURE Status: Acute Current Visit: No (2) COPD (chronic obstructive pulmonary disease) SNOMED Code(s): 71025028 Code(s): J44.9 - CHRONIC OBSTRUCTIVE PULMONARY DISEASE, UNSPECIFIED Status : Chronic Priority: High Current Visit: No Qualifiers: COPD type: unspecified COPD Qualified Code(s): J44.9 - Chronic obstructive pulmonary disease, unspecified (3) Diabetes mellitus type 2 SNOMED Code(s): 74332314 Code(s): E11.9 - TYPE 2 DIABETES MELLITUS WITHOUT COMPLICATIONS Status: Chronic Priority: High Current Visit: No (4) Rheumatoid arthritis SNOMED Code(s): 82412874 Code(s): M06.9 - RHEUMATOID ARTHRITIS, UNSPECIFIED Status: Chronic Priority: Medium Current Visit: No Qualifiers: Rheumatoid arthritis location: unspecified site Rheumatoid factor presence : unspecified presence Qualified Code(s): M06.9 - Rheumatoid arthritis, unspecified (5) Morbid obesity with BMI of 45.0-49.9, adult SNOMED Code(s): 909170200 Code(s): E66.01 - MORBID (SEVERE) OBESITY DUE TO EXCESS CALORIES; Z68.42 - BODY MASS INDEX (BMI) 45.0-49.9, ADULT Status: Chronic Current Visit: No - Problem List Review Problem List Initiated/Reviewed/Updated: Yes - My Orders Last 24 Hours: My Active Orders 05/20/17 09:00 Aspirin 81 mg PO DAILY Folic Acid 1 mg PO DAILY Lisinopril [Prinivil] 20 mg PO DAILY Oxybutynin 5 mg PO BID Spironolactone [Aldactone] 25 mg PO DAILY azaTHIOprine [Imuran] 150 mg PO DAILY predniSONE 20 mg PO DAILY 05/20/17 17:00 Potassium Chloride [Klor-Con M20] 20 meq PO BIDMEALS metFORMIN [Glucophage] 850 mg PO BIDMEALS 05/20/17 19:41 Heparin Sodium [Heparin Lock Flush 100 Units/ML] 500 units FLUSH ASDIRECTED PRN 05/20/17 21:00 Enoxaparin [Lovenox] 40 mg SUBCUT BEDTIME 05/21/17 07:30 GLUCOSE POC LAB TO COLLECT [POC] QIDACANDBED Isosorbide Mononitrate [Imdur] 30 mg PO DAILY@729 Pantoprazole [ProTONIX] 40 mg PO DAILY@72905/21/17 09:00 Mometasone/Formoterol [Dulera 200-5 MCG] 0 puff IH BIDRT 05/21/17 11:30 GLUCOSE POC LAB TO COLLECT [POC] QIDACANDBED 05/21/17 16:30 GLUCOSE POC LAB TO COLLECT [POC] QIDACANDBED 05/21/17 21:00 GLUCOSE POC LAB TO COLLECT [POC] QIDACANDBED 05/22/17 05:00 BASIC METABOLIC PANEL,BMP [CHEM] Timed 05/22/17 07:30 GLUCOSE POC LAB TO COLLECT [POC] QIDACANDBED 05/22/17 08:00 Bumetanide [Bumex] 3 mg PO BIDDIURETIC 05/22/17 11:30 GLUCOSE POC LAB TO COLLECT [POC] QIDACANDBED 05/22/17 16:30 GLUCOSE POC LAB TO COLLECT [POC] QIDACANDBED 05/22/17 21:00 GLUCOSE POC LAB TO COLLECT [POC] QIDACANDBED 05/23/17 07:30 GLUCOSE POC LAB TO COLLECT [POC] QIDACANDBED 05/23/17 11:30 GLUCOSE POC LAB TO COLLECT [POC] QIDACANDBED 05/23/17 16:30 GLUCOSE POC LAB TO COLLECT [POC] QIDACANDBED 05/23/17 21:00 GLUCOSE POC LAB TO COLLECT [POC] QIDACANDBED 05/24/17 07:30 GLUCOSE POC LAB TO COLLECT [POC] QIDACANDBED 05/24/17 11:30 GLUCOSE POC LAB TO COLLECT [POC] QIDACANDBED 05/24/17 16:30 GLUCOSE POC LAB TO COLLECT [POC] QIDACANDBED 05/24/17 21:00 GLUCOSE POC LAB TO COLLECT [POC] QIDACANDBED 05/25/17 07:30 GLUCOSE POC LAB TO COLLECT [POC] QIDACANDBED - Plan Plan:: ASSESSMENT AND PLAN - Acute on chronic congestive heart failure with preserved ejection fraction - weight has improved and kidney function has bumped slightly. Planning to hold diuretics today with probable intravascular volume depletion. Vitals otherwise stable. -Hold diuretics today, reassess tomorrow -BMP in the morning -Daily weights -Continue medical management for congestive heart failure -Supplement oxygen as needed COPD - secondary to rheumatoid arthritis. No evidence for acute exacerbation at this time. She is prednisone dependent. -Scheduled and as needed nebulizers -Prednisone 20 mg daily -Continue Advair Insulin-dependent diabetes mellitus - sugars mild to moderately elevated but stable. -Continue home medications -Medium dose sliding scale insulin Morbid obesity with BMI greater than 40 - chronic issue. Weight >10 pounds higher than baseline. Maintenance issues - - DVT prophylaxis - enoxaparin - GI prophylaxis - PPI - Nutrition - low sodium consistent carbohydrate diet Disposition - anticipate discharge home tomorrow Saran Bolivar M.D.
[2017-05-21] MEDS: Bumetanide 2.5 MG/10 ML MDV IVPUSH SCH (09:48)
[2017-05-21] MEDS: Morphine 15 MG Tab PO PRN (13:38)
[2017-05-21] MEDS: Sucralfate Suspension 1 GM/10 ML Cup PO SCH ×3 (17:23→21:36)
[2017-05-21] MEDS: Escitalopram 10 MG Tab PO SCH (20:57)
[2017-05-21] MEDS: Enoxaparin 40 MG/0.4 ML Syringe SUBCUT SCH (20:59)
[2017-05-21] MEDS ORDERED: Formoterol/Mometasone 200-5 MCG 8.8 GM Inhaler IH SCH (21:00)
[2017-05-21] MEDS: Metoprolol Succinate 25 MG Tab.ER PO SCH (21:01)
[2017-05-21] MEDS: traZODone 50 MG Tab PO SCH (21:05)
[2017-05-21] MEDS: Simvastatin 20 MG Tab PO SCH (21:06)
[2017-05-21] MEDS ORDERED: LORazepam 2 MG/ML MDV IVPUSH PRN (21:24)
[2017-05-21] MEDS: ALPRAZolam 0.25 MG Tab PO PRN (21:53)
--- NOTE | 2017-05-21 22:58 | PCM.SN ---
- Free Text/Narrative Note: time; 21:25 call from 2 [facility] Mrs. Daniel is anxious, concerns she has tremor, vital signs stable a; anxiety r/t possible discharge in am p; Ativan 1 mg iv every 4 hours. continue present plan of care.
[2017-05-22] MEDS: Morphine 15 MG Tab PO PRN (00:19)
[2017-05-22] MEDS: Albuterol/Ipratropium 3.0-0.5 MG/3 ML Neb Soln INH SCH ×2 (07:31→10:49)
[2017-05-22] MEDS: Formoterol/Mometasone 200-5 MCG 8.8 GM Inhaler IH SCH (07:34)
[2017-05-22] MEDS: Sucralfate Suspension 1 GM/10 ML Cup PO SCH ×2 (07:46→10:19)
[2017-05-22] MEDS: Insulin Aspart 100 Units/ML 3 ML Pen SUBCUT SCH ×4 (07:48→12:19)
[2017-05-22] MEDS: Pantoprazole 40 MG Tab.CR PO SCH (07:50)
[2017-05-22] MEDS: Verapamil 180 MG Tab.ER PO SCH (07:54)
[2017-05-22] MEDS: Isosorbide Mononitrate 30 MG Tab.ER PO SCH (07:54)
[2017-05-22] MEDS ORDERED: Bumetanide 1 MG Tab PO SCH (08:00)
[2017-05-22] MEDS: Insulin Detemir 100 Units/ML 3 ML Pen SUBCUT SCH (08:00)
[2017-05-22] MEDS: Spironolactone 25 MG Tab PO SCH (08:02)
[2017-05-22] MEDS: Lactobacillus Rhamnosus GG (Probiotic) Cap PO SCH (08:03)
[2017-05-22] MEDS: Folic Acid 1 MG Tab PO SCH (08:03)
[2017-05-22] MEDS: Magnesium Oxide 400 MG Tab PO SCH (08:03)
[2017-05-22] MEDS: Oxybutynin 5 MG Tab PO SCH (08:03)
[2017-05-22] MEDS: Aspirin 81 MG Tab.Chew PO SCH (08:03)
[2017-05-22] MEDS: Gabapentin 300 MG Cap PO SCH (08:04)
[2017-05-22] MEDS: predniSONE 20 MG Tab PO SCH (08:04)
[2017-05-22] MEDS: Lisinopril 20 MG Tab PO SCH (08:04)
[2017-05-22] MEDS: Potassium Chloride 20 MEQ Tab.ER PO SCH (10:06)
--- NOTE | 2017-05-22 10:09 | PCM.PN ---
- General Info Date of Service: 05/22/17 Functional Status: Reports: Pain Controlled, Tolerating Diet - Review of Systems General: Reports: Weakness Cardiovascular: Denies: Edema Neurological: Reports: Tremors - Patient Data Vitals - Most Recent: Last Vital Signs Temp 37.4 C 05/22/17 08:00 Pulse 97 05/22/17 08:00 Resp 18 05/22/17 08:00 BP 116/58 L 05/22/17 08:04 Pulse Ox 88 L 05/22/17 08:00 Weight - Most Recent: 138.074 kg I&O - Last 24 Hours: Intake & Output 05/21/17 05/22/17 05/22/17 22:59 06:59 14:59 Intake Total 300 350 Output Total 0 100 Balance 300 350 -100 Lab Results Last 24 Hours: Laboratory Results - last 24 hr 05/22/17 Range/Units 04:30 Sodium 139 L (140-148) mmol/L Potassium 5.3 H (3.6-5.2) mmol/L Chloride 101 (100-108) mmol/L Carbon Dioxide 31 (21-32) mmol/L Anion Gap 12.3 (5.0-14.0) mmol/L BUN 59 H D (7-18) mg/dL Creatinine 2.3 H (0.6-1.0) mg/dL Est Cr Clr Drug Dosing 23.56 mL/min Estimated GFR (MDRD) 21 L (>60) Glucose 206 H (74-106) mg/dL Calcium 8.6 (8.5-10.1) mg/dL Med Orders - Current: Current Medications Acetaminophen (Tylenol) 650 mg PO Q4H PRN PRN Reason: Pain (Mild 1-3)/fever Last Admin: 05/20/17 10:41 Dose: 650 mg Albuterol (Proventil Neb Soln) 2.5 mg NEB Q4H PRN PRN Reason: Shortness Of Breath/wheezing Last Admin: 05/19/17 19:59 Dose: 2.5 mg Albuterol/Ipratropium (Duoneb 3.0-0.5 Mg/3 Ml) 3 ml INH QIDRT [facility] Last Admin: 05/22/17 07:31 Dose: 3 ml Alprazolam (Xanax) 0.25 mg PO BID PRN PRN Reason: Anxiety Last Admin: 05/21/17 21:53 Dose: 0.25 mg Aspirin (Aspirin) 81 mg PO DAILY [facility] Last Admin: 05/22/17 08:03 Dose: 81 mg Azathioprine (Imuran) 150 mg PO DAILY [facility] Last Admin: 05/22/17 08:03 Dose: 150 mg Bumetanide (Bumex) 3 mg PO BIDDIURETIC [facility] Cyclobenzaprine HCl (Flexeril) 10 mg PO TID PRN PRN Reason: Pain Last Admin: 05/21/17 00:08 Dose: 10 mg Enoxaparin Sodium (Lovenox) 30 mg SUBCUT BEDTIME [facility] Escitalopram Oxalate (Lexapro) 30 mg PO BEDTIME [facility] Last Admin: 05/21/17 20:57 Dose: 30 mg Folic Acid (Folic Acid) 1 mg PO DAILY [facility] Last Admin: 05/22/17 08:03 Dose: 1 mg Gabapentin (Neurontin) 300 mg PO BID [facility] Last Admin: 05/22/17 08:04 Dose: 300 mg Heparin Sodium (Porcine) (Heparin Lock Flush 100 Units/Ml) 500 units FLUSH ASDIRECTED PRN PRN Reason: Keep Vein Open Last Admin: 05/20/17 19:45 Dose: 500 units Sodium Chloride (Normal Saline) 500 mls @ 500 mls/hr IV ASDIRECTED [facility] Stop: 05/22/17 11:16 Insulin Aspart (Novolog) 0 unit SUBCUT QIDACANDBED [facility] PRN Reason: Protocol Last Admin: 05/22/17 07:48 Dose: 4 units Insulin Aspart (Novolog) 12 unit SUBCUT TIDAC [facility] Last Admin: 05/22/17 07:49 Dose: 12 units Insulin Detemir (Levemir) 30 unit SUBCUT BID [facility] Last Admin: 05/22/17 08:00 Dose: 30 unit Isosorbide Mononitrate (Imdur) 30 mg PO DAILY@0730 [facility] Last Admin: 05/22/17 07:54 Dose: 30 mg Lactobacillus Rhamnosus (Culturelle) 1 cap PO BID [facility] Last Admin: 05/22/17 08:03 Dose: 1 cap Lisinopril (Prinivil) 20 mg PO DAILY [facility] Last Admin: 05/22/17 08:04 Dose: 20 mg Magnesium Oxide (Magnesium Oxide) 400 mg PO BID [facility] Last Admin: 05/22/17 08:03 Dose: 400 mg Metformin HCl (Glucophage) 850 mg PO BIDMEALS [facility] Last Admin: 05/22/17 07:55 Dose: 850 mg Metoprolol Succinate (Toprol Xl) 25 mg PO BEDTIME [facility] Last Admin: 05/21/17 21:01 Dose: 25 mg Mometasone Furoate/Formoterol Fumar (Dulera 200-5 Mcg) 0 puff IH BIDRT [facility] Last Admin: 05/22/17 07:34 Dose: 2 puff Morphine Sulfate (Morphine) 15 mg PO Q4H PRN PRN Reason: Pain Last Admin: 05/22/17 00:19 Dose: 15 mg Ondansetron HCl (Zofran Odt) 4 mg PO Q6H PRN PRN Reason: Nausea able to take PO Last Admin: 05/21/17 14:53 Dose: 4 mg Oxybutynin Chloride (Oxybutynin) 5 mg PO BID [facility] Last Admin: 05/22/17 08:03 Dose: 5 mg Pantoprazole Sodium (Protonix) 40 mg PO DAILY@0730 [facility] Last Admin: 05/22/17 07:50 Dose: 40 mg Polyethylene Glycol (Miralax) 17 gm PO DAILY PRN PRN Reason: Constipation Potassium Chloride (Klor-Con M20) 20 meq PO BIDMEALS [facility] Last Admin: 05/22/17 10:06 Dose: Not Given Prednisone (Prednisone) 20 mg PO DAILY [facility] Last Admin: 05/22/17 08:04 Dose: 20 mg Promethazine HCl (Phenergan) 25 mg PO Q8H PRN PRN Reason: Nausea Senna/Docusate Sodium (Senna Plus) 1 tab PO BID PRN PRN Reason: Constipation Simvastatin (Zocor) 10 mg PO BEDTIME [facility] Last Admin: 05/21/17 21:06 Dose: 10 mg Sodium Chloride (Saline Flush) 10 ml FLUSH ASDIRECTED PRN PRN Reason: Keep Vein Open Spironolactone (Aldactone) 25 mg PO DAILY [facility] Last Admin: 05/22/17 08:02 Dose: 25 mg Sucralfate (Carafate) 1 gm PO QID [facility] Last Admin: 05/22/17 07:46 Dose: Not Given Trazodone HCl (Trazodone) 50 mg PO BEDTIME [facility] Last Admin: 05/21/17 21:05 Dose: 50 mg Verapamil HCl (Calan Sr) 180 mg PO BIDAC [facility] Last Admin: 05/22/17 07:54 Dose: 180 mg Discontinued Medications Bumetanide (Bumex) 4 mg IVPUSH ONETIME ONE Stop: 05/19/17 18:01 Last Admin: 05/19/17 21:08 Dose: Not Given Bumetanide (Bumex) 3 mg IVPUSH BIDDIURETIC [facility] Last Admin: 05/21/17 09:48 Dose: Not Given Bumetanide (Bumex) Confirm Administered Dose 1 mg .ROUTE .STK-MED ONE Stop: 05/19/17 20:40 Last Admin: 05/19/17 20:46 Dose: 1 mg Bumetanide (Bumex) 3 mg PO BIDDIURETIC [facility] Last Admin: 05/22/17 07:55 Dose: 3 mg Enoxaparin Sodium (Lovenox) 40 mg SUBCUT BEDTIME [facility] Last Admin: 05/21/17 20:59 Dose: 40 mg Isosorbide Mononitrate (Imdur) 30 mg PO DAILY [facility] Last Admin: 05/20/17 09:00 Dose: 30 mg Lorazepam (Ativan) 1 mg IVPUSH Q4H PRN PRN Reason: Agitation Metformin HCl (Glucophage) 850 mg PO BID [facility] Last Admin: 05/20/17 09:00 Dose: 850 mg Mometasone Furoate/Formoterol Fumar (Dulera 200-5 Mcg) 1 puff IH BID [facility] Last Admin: 05/20/17 09:00 Dose: 1 puff Mometasone Furoate/Formoterol Fumar (Dulera 200-5 Mcg) 1 puff IH BID [facility] Last Admin: 05/20/17 21:02 Dose: 1 puff Mometasone Furoate/Formoterol Fumar (Dulera 200-5 Mcg) 0 puff IH BIDRT [facility] Pantoprazole Sodium (Protonix) 40 mg PO DAILY [facility] Last Admin: 05/20/17 09:00 Dose: 40 mg Potassium Chloride (Klor-Con M20) 20 meq PO BID [facility] Last Admin: 05/20/17 09:00 Dose: 20 meq Sucralfate (Carafate) 1 gm PO QID [facility] Last Admin: 05/21/17 09:49 Dose: Not Given - Exam Quality Assessment: Supplemental Oxygen General: Alert, Oriented, Cooperative, No Acute Distress Neck: Supple Lungs: Clear to Auscultation, Normal Respiratory Effort. No: Wheezing Cardiovascular: Regular Rate, Regular Rhythm GI/Abdominal Exam: No Distention Extremities: No Pedal Edema Skin: Warm, Dry Psy/Mental Status: Alert, Normal Affect - Problem List & Annotations (1) (HFpEF) heart failure with preserved ejection fraction SNOMED Code(s): 78351841 Code(s): I50.30 - UNSPECIFIED DIASTOLIC (CONGESTIVE) HEART FAILURE Status: Acute Current Visit: No (2) COPD (chronic obstructive pulmonary disease) SNOMED Code(s): 62162312 Code(s): J44.9 - CHRONIC OBSTRUCTIVE PULMONARY DISEASE, UNSPECIFIED Status : Chronic Priority: High Current Visit: No Qualifiers: COPD type: unspecified COPD Qualified Code(s): J44.9 - Chronic obstructive pulmonary disease, unspecified (3) Diabetes mellitus type 2 SNOMED Code(s): 72400719 Code(s): E11.9 - TYPE 2 DIABETES MELLITUS WITHOUT COMPLICATIONS Status: Chronic Priority: High Current Visit: No (4) Rheumatoid arthritis SNOMED Code(s): 58067330 Code(s): M06.9 - RHEUMATOID ARTHRITIS, UNSPECIFIED Status: Chronic Priority: Medium Current Visit: No Qualifiers: Rheumatoid arthritis location: unspecified site Rheumatoid factor presence : unspecified presence Qualified Code(s): M06.9 - Rheumatoid arthritis, unspecified (5) Morbid obesity with BMI of 45.0-49.9, adult SNOMED Code(s): 347668087 Code(s): E66.01 - MORBID (SEVERE) OBESITY DUE TO EXCESS CALORIES; Z68.42 - BODY MASS INDEX (BMI) 45.0-49.9, ADULT Status: Chronic Current Visit: No - My Orders Last 24 Hours: My Active Orders 05/21/17 16:00 Sucralfate [Carafate] 1 gm PO QID 05/22/17 10:15 Sodium Chloride 0.9% [Normal Saline] 500 ml IV ASDIRECTED 05/22/17 11:30 GLUCOSE POC LAB TO COLLECT [POC] QIDACANDBED 05/22/17 16:30 GLUCOSE POC LAB TO COLLECT [POC] QIDACANDBED 05/22/17 21:00 GLUCOSE POC LAB TO COLLECT [POC] QIDACANDBED Enoxaparin [Lovenox] 30 mg SUBCUT BEDTIME 05/23/17 05:00 BASIC METABOLIC PANEL,BMP [CHEM] Timed CBC W/O DIFF,HEMOGRAM [HEME] Timed (1) 05/23/17 07:30 GLUCOSE POC LAB TO COLLECT [POC] QIDACANDBED 05/23/17 08:00 Bumetanide [Bumex] 3 mg PO BIDDIURETIC 05/23/17 11:30 GLUCOSE POC LAB TO COLLECT [POC] QIDACANDBED 05/23/17 16:30 GLUCOSE POC LAB TO COLLECT [POC] QIDACANDBED 05/23/17 21:00 GLUCOSE POC LAB TO COLLECT [POC] QIDACANDBED 05/24/17 07:30 GLUCOSE POC LAB TO COLLECT [POC] QIDACANDBED 05/24/17 11:30 GLUCOSE POC LAB TO COLLECT [POC] QIDACANDBED 05/24/17 16:30 GLUCOSE POC LAB TO COLLECT [POC] QIDACANDBED 05/24/17 21:00 GLUCOSE POC LAB TO COLLECT [POC] QIDACANDBED 05/25/17 07:30 GLUCOSE POC LAB TO COLLECT [POC] QIDACANDBED - Plan Plan:: ASSESSMENT AND PLAN - Acute on chronic congestive heart failure with preserved ejection fraction - weight has improved and kidney function has bumped slightly. Planning to hold diuretics today with probable intravascular volume depletion. Vitals otherwise stable. -Hold diuretics today, reassess tomorrow -BMP in the morning -Daily weights -Continue medical management for congestive heart failure -Supplement oxygen as needed COPD - secondary to rheumatoid arthritis. No evidence for acute exacerbation at this time. She is prednisone dependent. -Scheduled and as needed nebulizers -Prednisone 20 mg daily -Continue Advair Insulin-dependent diabetes mellitus - sugars mild to moderately elevated but stable. -Continue home medications -Medium dose sliding scale insulin Morbid obesity with BMI greater than 40 - chronic issue. Weight >10 pounds higher than baseline. Maintenance issues - - DVT prophylaxis - enoxaparin - GI prophylaxis - PPI - Nutrition - low sodium consistent carbohydrate diet Disposition - anticipate discharge home tomorrow Saran Bolivar M.D.
[2017-05-22] MEDS ORDERED: Sodium Chloride 0.9% 500 ML IV SCH ×2 (10:15→14:15)
--- NOTE | 2017-05-22 12:35 | CR ---
Chest 2V HISTORY: fever COMPARISON: 04/16/2017 FINDINGS: No acute infiltrate is identified. There is no interstitial edema. Cardiomediastinal silhouette is wi thin normal limits. No vascular redistribution or pleural fluid can be seen. Left-sided central venou s Port-A-Cath is stable. Bony structures and soft tissues are unremarkable. IMPRESSION: No acute chest abnormality or significant interval change is identified.
[2017-05-22 13:59] VITALS: BP 75/42
[2017-05-22] MEDS ORDERED: predniSONE 20 MG Tab PO ONE (14:30)
[2017-05-22] MEDS ORDERED: EPINEPHrine 1:10,000 1 MG/10 ML Syringe IV ONE ×4 (14:36→15:01)
[2017-05-22] MEDS ORDERED: Sodium Bicarbonate 8.4% 50 MEQ/50 ML Syringe IV ONE ×2 (14:52→15:38)
[2017-05-22] MEDS ORDERED: DOPamine/Dextrose 5%-Water 400 MG/250 ML BAG IV SCH (14:52)
[2017-05-22] MEDS ORDERED: Sodium Polystyrene Sulfonate 15 GM/60 ML Susp 60 ML Bot NGTUBE ONE (15:17)
[2017-05-22] MEDS ORDERED: Insulin Aspart 100 Units/ML 3 ML Pen SUBCUT ONE (15:25)
[2017-05-22] MEDS ORDERED: Calcium Gluconate 10% 1 GM/10 ML SDV IVPUSH ONE (15:35)
[2017-05-22] MEDS ORDERED: Heparin Sodium 5,000 Units/ML Vial IV ONE (15:42)
[2017-05-22] MEDS ORDERED: Heparin Sodium 5,000 Units/ML Vial ONE (15:43)
--- NOTE | 2017-05-22 15:59 | PCM.DCSUM1 ---
Discharge Summary - Hospital Course Brief History: 61 -year-old female with history of morbid obesity, insulin- dependent diabetes mellitus, diastolic heart failure and COPD who presented with shortness of breath and fatigue. She was admitted from the clinic for management of congestive heart failure with a 10 pound weight gain. - Discharge Data Discharge Date: 05/22/17 Discharge Disposition: DC/Tfer to Acute Hospital 02 Condition: Serious - Discharge Diagnosis/Problem(s) (1) Hyperkalemia SNOMED Code(s): 49876548 ICD Code: E87.5 - HYPERKALEMIA Status: Acute Current Visit: Yes (2) Cardiac arrest SNOMED Code(s): 786325888 ICD Code: I46.9 - CARDIAC ARREST, CAUSE UNSPECIFIED Status: Acute Current Visit: Yes (3) Acute kidney injury SNOMED Code(s): 16502469 ICD Code: N17.9 - ACUTE KIDNEY FAILURE, UNSPECIFIED Status: Acute Current Visit: Yes (4) STEMI (ST elevation myocardial infarction) SNOMED Code(s): 475108886 ICD Code: I21.3 - ST ELEVATION (STEMI) MYOCARDIAL INFARCTION OF UNSP SITE Status: Suspected Current Visit: Yes Qualifiers: Involved coronary artery: right coronary artery Qualified Code(s): I21.11 - ST elevation (STEMI) myocardial infarction involving right coronary artery (5) (HFpEF) heart failure with preserved ejection fraction SNOMED Code(s): 61865527 ICD Code: I50.30 - UNSPECIFIED DIASTOLIC (CONGESTIVE) HEART FAILURE Status : Acute Current Visit: No (6) COPD (chronic obstructive pulmonary disease) SNOMED Code(s): 07190930 ICD Code: J44.9 - CHRONIC OBSTRUCTIVE PULMONARY DISEASE, UNSPECIFIED Status : Chronic Priority: High Current Visit: No Qualifiers: COPD type: unspecified COPD Qualified Code(s): J44.9 - Chronic obstructive pulmonary disease, unspecified (7) Diabetes mellitus type 2 SNOMED Code(s): 55133882 ICD Code: E11.9 - TYPE 2 DIABETES MELLITUS WITHOUT COMPLICATIONS Status: Chronic Priority: High Current Visit: No (8) Rheumatoid arthritis SNOMED Code(s): 16835638 ICD Code: M06.9 - RHEUMATOID ARTHRITIS, UNSPECIFIED Status: Chronic Priority: Medium Current Visit: No Qualifiers: Rheumatoid arthritis location: unspecified site Rheumatoid factor presence : unspecified presence Qualified Code(s): M06.9 - Rheumatoid arthritis, unspecified (9) Morbid obesity with BMI of 45.0-49.9, adult SNOMED Code(s): 520099159 ICD Code: E66.01 - MORBID (SEVERE) OBESITY DUE TO EXCESS CALORIES; Z68.42 - BODY MASS INDEX (BMI) 45.0-49.9, ADULT Status: Chronic Current Visit: No - Patient Summary/Data Hospital Course: Dipti presented to the clinic with shortness of breath and fatigue as well as a 10 pound weight gain. She was directly admitted for management of diastolic congestive heart failure. She received IV bumetanide over the next 36 hours with improvement in her peripheral edema as well as the symptoms. Diuresis was continued until we noted a small bump in her creatinine and improvement in her symptoms. At this point we held diuresis in the afternoon and monitor volume status. Fortunately she developed acute kidney injury with a rising creatinine level. We continued to hold diuresis at this point. Symptomatically she was feeling fairly well on the day before discharge. Overnight prior to discharge she reported that she was feeling weak and a little tremulous but no specific symptoms. She had one low blood pressure but otherwise her vital signs were stable. She did have a low-grade temperature elevation the night before discharge. On the morning of discharge she reported feeling very tired and did not think she was ready to go home. Her creatinine level had risen to 2.3 with a baseline of 1.2-1.3. Her potassium was mildly elevated at 5.3. Her potassium supplement was held. Unfortunately she did receive her lisinopril prior to laboratory studies being reviewed. With the rise in the creatinine and low- normal blood pressure we gave her a 500 mL bolus with some improvement in the blood pressure though it remained suboptimal so a second 500 mL bolus was given. Symptomatically she was doing a little better at this point and vital signs had improved. At approximately 1530 the respiratory therapist entered the room to administer a scheduled nebulizer. She found the patient cyanotic and unresponsive. The patient had last been seen normal approximately 15 minutes prior to this. DANIEL MARCUS was called. Initial blood pressure was hypotensive with a systolic around 80. She did not have a pulse and rhythm on the monitor was asystole or possibly a fine ventricular fibrillation but no shock was advised. CPR was initiated immediately and then transition to the Chaim machine. During the initial resuscitation she received 3 rounds of epinephrine with return of pulses and circulation. the patient was intubated by anesthesia services. Code labs returned revealing a pH of 7.09 and a PCO2 in the upper 60s. Creatinine has risen to 2.9 and her potassium was 7.4. an amp of bicarbonate was given with the return of the pH. EKG was performed which showed bradycardia with possible atrial flutter and a wide-complex with concern for ST elevation in the inferior leads. As the resuscitation progressed the patient was starting to move all 4 extremities and was opening and closing her eyes spontaneously. I contacted the on-call services through [facility] in [place] and spoke to Dr. Hodges the metalizer initially and later to the tool room lathe operator. Additional recommendations from the tool room lathe operator included 2 g of calcium gluconate as well as a bicarbonate infusion as well as insulin and Kayexalate. The patient has had intermittent bradycardia and has been started on epinephrine infusion. Initially dopamine was chosen but this did not provide any benefit with up titration. Titration of the epinephrine infusion has provided mild improvement in the bradycardia. The patient received 4000 units of heparin prior to transfer. She will be transferred to intensive care unit in [place]. She has hyperkalemia, bradycardia as well as what I believe was a primary cardiac arrest probably in the setting of hyperkalemia. Blood pressures have improved with the above resuscitation. She does have pacing pads in place at the time of transfer. She certainly is at risk for deterioration of her medical condition at the time of transfer but the benefits outweigh the risks. - Patient Instructions Diet: NPO - Discharge Plan Home Medications: Home Meds Albuterol [Ventolin HFA] 2 puff INH ASDIRECTED PRN 03/01/13 [History] Escitalopram [Lexapro] 30 mg PO BEDTIME 03/01/13 [History] Ipratropium/Albuterol Sulfate [Duoneb 0.5 MG-3 MG/3 ML] 3 ml INH QID 03/01/13 [ History] Metoprolol Succinate [Toprol XL] 25 mg PO BEDTIME 03/01/13 [History] Verapamil HCl [Verelan] 180 mg PO BIDAC 03/01/13 [History] Aspirin 81 mg PO DAILY 08/30/13 [History] Simvastatin [Zocor] 10 mg PO BEDTIME 08/30/13 [History] Magnesium Oxide 400 mg PO BID 09/01/13 [History] Lactobacillus Acidophilus [Probiotic] 1 cap PO BID 04/05/14 [History] Cyclobenzaprine [Flexeril] 10 mg PO TID PRN 09/27/14 [History] Folic Acid 1 mg PO DAILY 09/27/14 [History] metFORMIN [Glucophage] 850 mg PO BID 09/27/14 [History] Gabapentin [Neurontin] 300 mg PO BID 03/28/15 [History] Lisinopril 20 mg PO DAILY 03/28/15 [History] Oxybutynin [Oxybutynin ER] 10 mg PO DAILY 03/28/15 [History] Promethazine [Phenergan] 25 mg PO Q8H PRN 03/28/15 [History] traZODone 50 mg PO BEDTIME 03/28/15 [History] Potassium Chloride [Klor-Con M20] 20 meq PO BID #60 tab.er 07/29/15 [Rx] Cyanocobalamin (Vitamin B12) [Vitamin B12] 1,000 mcg IM Q30D 09/26/15 [History] Ergocalciferol (Vitamin D2) [Vitamin D2] 50,000 unit PO WEEKLY 09/26/15 [History ] Ferrous Sulfate 325 mg PO DAILY 09/26/15 [History] Fluticasone/Salmeterol [Advair Diskus 500-50] 1 puff INH BID 12/05/15 [History] azaTHIOprine [Azathioprine] 150 mg PO DAILY 12/05/15 [History] Isosorbide Mononitrate [Isosorbide Mononitrate ER] 30 mg PO DAILY 04/12/16 [ History] Insulin Aspart [NovoLOG] 12 unit SUBCUT QIDACANDBED 06/05/16 [History] Pantoprazole [ProTONIX] 40 mg PO DAILY 07/13/16 [History] Insulin Detemir [Levemir Flextouch] 30 units SQ BID #300 ml 08/28/16 [Rx] Prednisone [IJD: predniSONE] 20 mg PO DAILY 10/28/16 [History] Spironolactone [Aldactone] 25 mg PO DAILY #30 tablet 12/27/16 [Rx] ALPRAZolam [Alprazolam] 0.25 mg PO ASDIRECTED PRN 02/22/17 [History] Bumetanide [Bumex] 3 mg PO BID #0 tablet 03/20/17 [Rx] Morphine 15 mg PO Q4H PRN #10 tablet 03/27/17 [Rx] Clotrimazole [Mycelex] 1 tab PO TID 04/08/17 [History] - Discharge Summary/Plan Comment DC Time >30 min.: Yes (90 - transfer to acute hospital ) - Patient Data Vitals - Most Recent: Last Vital Signs Temp 37.7 C 05/22/17 13:43 Pulse 101 H 05/22/17 13:58 Resp 18 05/22/17 13:43 BP 75/42 L 05/22/17 13:58 Pulse Ox 94 L 05/22/17 13:43 Weight - Most Recent: 139.888 kg I&O - Last 24 hours: Intake & Output 05/22/17 05/22/17 05/22/17 06:59 14:59 22:59 Intake Total 350 500 Output Total 100 Balance 350 400 Lab Results - Last 24 hrs: Laboratory Results - last 24 hr 05/22/17 05/22/17 05/22/17 Range/Units 04:30 15:06 15:06 Puncture Site Lt radial ABG pH 7.091 L* (7.350-7.450) ABG pCO2 69.6 H* (35.0-42.0) mmHg ABG pO2 275.0 H (75.0-100.0) mmHg ABG HCO3 20.2 L (22.0-26.0) mmol/L ABG Total CO2 19.8 L (21.0-25.0) mmol/L ABG O2 Saturation 98.7 H (95.0-98.0) % ABG O2 Content 17.4 (15.0-23.0) %vol ABG Base Excess -10.4 mm/L ABG Hemoglobin 12.3 (12.0-16.0) g/dL ABG Oxyhemoglobin 97.4 % ABG Carboxyhemoglobin 0.3 (0.0-1.6) % ABG Methemoglobin 1.0 % You Test Pass O2 Delivery Device Ventilator Sodium 139 L 135 L (140-148) mmol/L Potassium 5.3 H 7.4 H* (3.6-5.2) mmol/L Chloride 101 100 (100-108) mmol/L Carbon Dioxide 31 23 (21-32) mmol/L Anion Gap 12.3 19.4 H (5.0-14.0) mmol/L BUN 59 H D 67 H (7-18) mg/dL Creatinine 2.3 H 2.9 H (0.6-1.0) mg/dL Est Cr Clr Drug Dosing 23.56 18.69 mL/min Estimated GFR (MDRD) 21 L 16 L (>60) Glucose 206 H 320 H (74-106) mg/dL Calcium 8.6 9.0 (8.5-10.1) mg/dL Med Orders - Current: Current Medications Acetaminophen (Tylenol) 650 mg PO Q4H PRN PRN Reason: Pain (Mild 1-3)/fever Last Admin: 05/20/17 10:41 Dose: 650 mg Albuterol (Proventil Neb Soln) 2.5 mg NEB Q4H PRN PRN Reason: Shortness Of Breath/wheezing Last Admin: 05/19/17 19:59 Dose: 2.5 mg Albuterol/Ipratropium (Duoneb 3.0-0.5 Mg/3 Ml) 3 ml INH QIDRT [facility] Last Admin: 05/22/17 10:49 Dose: 3 ml Alprazolam (Xanax) 0.25 mg PO BID PRN PRN Reason: Anxiety Last Admin: 05/21/17 21:53 Dose: 0.25 mg Aspirin (Aspirin) 81 mg PO DAILY [facility] Last Admin: 05/22/17 08:03 Dose: 81 mg Azathioprine (Imuran) 150 mg PO DAILY [facility] Last Admin: 05/22/17 08:03 Dose: 150 mg Bumetanide (Bumex) 3 mg PO BIDDIURETIC [facility] Cyclobenzaprine HCl (Flexeril) 10 mg PO TID PRN PRN Reason: Pain Last Admin: 05/21/17 00:08 Dose: 10 mg Enoxaparin Sodium (Lovenox) 30 mg SUBCUT BEDTIME [facility] Escitalopram Oxalate (Lexapro) 30 mg PO BEDTIME [facility] Last Admin: 05/21/17 20:57 Dose: 30 mg Folic Acid (Folic Acid) 1 mg PO DAILY [facility] Last Admin: 05/22/17 08:03 Dose: 1 mg Gabapentin (Neurontin) 300 mg PO BID [facility] Last Admin: 05/22/17 08:04 Dose: 300 mg Heparin Sodium (Porcine) (Heparin Lock Flush 100 Units/Ml) 500 units FLUSH ASDIRECTED PRN PRN Reason: Keep Vein Open Last Admin: 05/22/17 12:14 Dose: 500 units Epinephrine HCl 1 mg/ Dextrose (/Water) 101 mls @ 0 mls/hr IV ONETIME ONE PRN Reason: Protocol Stop: 05/22/17 16:01 Sodium Bicarbonate 150 meq/ (Sodium Chloride) 1,150 mls @ 0 mls/hr IV ONETIME ONE PRN Reason: Protocol Stop: 05/22/17 16:01 Insulin Aspart (Novolog) 0 unit SUBCUT QIDACANDBED [facility] PRN Reason: Protocol Last Admin: 05/22/17 12:18 Dose: 2 units Insulin Aspart (Novolog) 12 unit SUBCUT TIDAC [facility] Last Admin: 05/22/17 12:19 Dose: 12 units Insulin Detemir (Levemir) 30 unit SUBCUT BID [facility] Last Admin: 05/22/17 08:00 Dose: 30 unit Isosorbide Mononitrate (Imdur) 30 mg PO DAILY@0730 [facility] Last Admin: 05/22/17 07:54 Dose: 30 mg Lactobacillus Rhamnosus (Culturelle) 1 cap PO BID [facility] Last Admin: 05/22/17 08:03 Dose: 1 cap Lisinopril (Prinivil) 20 mg PO DAILY [facility] Last Admin: 05/22/17 08:04 Dose: 20 mg Magnesium Oxide (Magnesium Oxide) 400 mg PO BID [facility] Last Admin: 05/22/17 08:03 Dose: 400 mg Metformin HCl (Glucophage) 850 mg PO BIDMEALS [facility] Last Admin: 05/22/17 07:55 Dose: 850 mg Metoprolol Succinate (Toprol Xl) 25 mg PO BEDTIME [facility] Last Admin: 05/21/17 21:01 Dose: 25 mg Mometasone Furoate/Formoterol Fumar (Dulera 200-5 Mcg) 0 puff IH BIDRT [facility] Last Admin: 05/22/17 07:34 Dose: 2 puff Morphine Sulfate (Morphine) 15 mg PO Q4H PRN PRN Reason: Pain Last Admin: 05/22/17 00:19 Dose: 15 mg Ondansetron HCl (Zofran Odt) 4 mg PO Q6H PRN PRN Reason: Nausea able to take PO Last Admin: 05/21/17 14:53 Dose: 4 mg Oxybutynin Chloride (Oxybutynin) 5 mg PO BID [facility] Last Admin: 05/22/17 08:03 Dose: 5 mg Pantoprazole Sodium (Protonix) 40 mg PO DAILY@0730 [facility] Last Admin: 05/22/17 07:50 Dose: 40 mg Polyethylene Glycol (Miralax) 17 gm PO DAILY PRN PRN Reason: Constipation Potassium Chloride (Klor-Con M20) 20 meq PO BIDMEALS [facility] Last Admin: 05/22/17 10:06 Dose: Not Given Prednisone (Prednisone) 20 mg PO DAILY [facility] Last Admin: 05/22/17 08:04 Dose: 20 mg Promethazine HCl (Phenergan) 25 mg PO Q8H PRN PRN Reason: Nausea Senna/Docusate Sodium (Senna Plus) 1 tab PO BID PRN PRN Reason: Constipation Simvastatin (Zocor) 10 mg PO BEDTIME [facility] Last Admin: 05/21/17 21:06 Dose: 10 mg Sodium Chloride (Saline Flush) 10 ml FLUSH ASDIRECTED PRN PRN Reason: Keep Vein Open Spironolactone (Aldactone) 25 mg PO DAILY [facility] Last Admin: 05/22/17 08:02 Dose: 25 mg Sucralfate (Carafate) 1 gm PO QID [facility] Last Admin: 05/22/17 10:19 Dose: Not Given Trazodone HCl (Trazodone) 50 mg PO BEDTIME [facility] Last Admin: 05/21/17 21:05 Dose: 50 mg Verapamil HCl (Calan Sr) 180 mg PO BIDAC [facility] Last Admin: 05/22/17 07:54 Dose: 180 mg Discontinued Medications Bumetanide (Bumex) 4 mg IVPUSH ONETIME ONE Stop: 05/19/17 18:01 Last Admin: 05/19/17 21:08 Dose: Not Given Bumetanide (Bumex) 3 mg IVPUSH BIDDIURETIC [facility] Last Admin: 05/21/17 09:48 Dose: Not Given Bumetanide (Bumex) Confirm Administered Dose 1 mg .ROUTE .STK-MED ONE Stop: 05/19/17 20:40 Last Admin: 05/19/17 20:46 Dose: 1 mg Bumetanide (Bumex) 3 mg PO BIDDIURETIC [facility] Last Admin: 05/22/17 07:55 Dose: 3 mg Calcium Gluconate (Calcium Gluconate) 2 gm IVPUSH ONETIME ONE Stop: 05/22/17 15:36 Enoxaparin Sodium (Lovenox) 40 mg SUBCUT BEDTIME [facility] Last Admin: 05/21/17 20:59 Dose: 40 mg Heparin Sodium (Porcine) (Heparin Sodium) Confirm Administered Dose 5,000 units .ROUTE .STK-MED ONE Stop: 05/22/17 15:44 Sodium Chloride (Normal Saline) 500 mls @ 500 mls/hr IV ASDIRECTED [facility] Stop: 05/22/17 11:16 Last Admin: 05/22/17 10:38 Dose: 500 mls/hr Sodium Chloride (Normal Saline) 500 mls @ 500 mls/hr IV ASDIRECTED [facility] Stop: 05/22/17 15:16 Insulin Aspart (Novolog) 10 unit SUBCUT ONETIME ONE Stop: 05/22/17 15:26 Isosorbide Mononitrate (Imdur) 30 mg PO DAILY [facility] Last Admin: 05/20/17 09:00 Dose: 30 mg Lorazepam (Ativan) 1 mg IVPUSH Q4H PRN PRN Reason: Agitation Metformin HCl (Glucophage) 850 mg PO BID [facility] Last Admin: 05/20/17 09:00 Dose: 850 mg Mometasone Furoate/Formoterol Fumar (Dulera 200-5 Mcg) 1 puff IH BID [facility] Last Admin: 05/20/17 09:00 Dose: 1 puff Mometasone Furoate/Formoterol Fumar (Dulera 200-5 Mcg) 1 puff IH BID [facility] Last Admin: 05/20/17 21:02 Dose: 1 puff Mometasone Furoate/Formoterol Fumar (Dulera 200-5 Mcg) 0 puff IH BIDRT [facility] Pantoprazole Sodium (Protonix) 40 mg PO DAILY [facility] Last Admin: 05/20/17 09:00 Dose: 40 mg Potassium Chloride (Klor-Con M20) 20 meq PO BID [facility] Last Admin: 05/20/17 09:00 Dose: 20 meq Prednisone (Prednisone) 20 mg PO ONETIME ONE Stop: 05/22/17 14:31 Sodium Polystyrene Sulfonate (Kayexalate) 45 gm NGTUBE NOW ONE Stop: 05/22/17 15:18 Sucralfate (Carafate) 1 gm PO QID [facility] Last Admin: 05/21/17 09:49 Dose: Not Given *Q Meaningful Use (DIS) - VTE *Q VTE Criteria *Q: - Stroke *Q Stroke Criteria *Q: - AMI *Q AMI Criteria *Q:
[2017-05-22] MEDS ORDERED: Sodium Bicarbonate 50 MEQ in Sodium Chloride 0.9% 1,000 ML IV ONE (16:00)
[2017-05-22] MEDS ORDERED: EPINEPHrine 1 MG in Dextrose 5% in Water 100 ML IV ONE ×2 (16:00)
[2017-05-22] MEDS ORDERED: Sodium Bicarbonate 150 MEQ in Sodium Chloride 0.9% 1,000 ML IV ONE (16:00)
[2017-05-22] MEDS ORDERED: Enoxaparin 30 MG/0.3 ML Syringe SUBCUT SCH (21:00)
[2017-05-23] MEDS ORDERED: Bumetanide 1 MG Tab PO SCH (08:00)
--- NOTE | 2017-05-23 08:43 | CR ---
Chest 1V Frontal HISTORY: intubation COMPARISON: 05/22/2017 FINDINGS: Endotracheal tube has been placed. The tip is in satisfactory position well above the chris. Left-si ded central venous Port-A-Cath is stable with the tip overlying the mid SVC. There is mild interstiti al prominence right upper lobe which could are generally infiltrates versus interstitial edema. Cardi omediastinal silhouette is within normal limits and stable. No vascular redistribution or pleural flu id can be seen. Bony structures and soft tissues are unremarkable. IMPRESSION: Satisfactory endotracheal tube placement. Possible early infiltrates versus edema right upper lobe.
== END 2017-05-22 15:55 | DRG 194 ==
LOC: JP.MS 17:26 → OBSVTOIN 17:26
PROVIDERS: ADMIT Internal Medicine; ATTEND Internal Medicine
PROC: 0BH18EZ Insertion of Endotracheal Airway into Trachea, Via Natural or Artificial Opening Endoscopic (ICD-10-PCS; principal; 2017-05-22)
PROC: 3E023GC Introduction of Other Therapeutic Substance into Muscle, Percutaneous Approach (ICD-10-PCS; 2017-05-22)
PROC: 5A12012 Performance of Cardiac Output, Single, Manual (ICD-10-PCS; 2017-05-22)
DX: I11.0 Hypertensive heart disease with heart failure (principal); I50.33 Acute on chronic diastolic (congestive) heart failure; J44.9 Chronic obstructive pulmonary disease, unspecified; E11.21 Type 2 diabetes mellitus with diabetic nephropathy; M06.9 Rheumatoid arthritis, unspecified; I46.9 Cardiac arrest, cause unspecified; I21.11 ST elevation (STEMI) myocardial infarction involving right coronary artery; N17.9 Acute kidney failure, unspecified; E87.5 Hyperkalemia; E66.01 Morbid (severe) obesity due to excess calories; M19.90 Unspecified osteoarthritis, unspecified site; E11.40 Type 2 diabetes mellitus with diabetic neuropathy, unspecified; F41.9 Anxiety disorder, unspecified; F32.9 Major depressive disorder, single episode, unspecified; M81.0 Age-related osteoporosis without current pathological fracture; E53.8 Deficiency of other specified B group vitamins; K21.9 Gastro-esophageal reflux disease without esophagitis; D64.9 Anemia, unspecified; Z68.42 Body mass index [BMI] 45.0-49.9, adult; Z99.81 Dependence on supplemental oxygen; Z79.52 Long term (current) use of systemic steroids; Z79.899 Other long term (current) drug therapy; Z79.82 Long term (current) use of aspirin; Z79.4 Long term (current) use of insulin; Z79.51 Long term (current) use of inhaled steroids
CPT/HCPCS: 36415; 36600; 71010; 71010-26; 71020; 71020-26; 80048; 82803; 82962; 85027; 93005; 94640; 94640-76; A9270-GY; C1751; J0171; J0610; J1265; J1642; J1644; J1650; J3490; J7040; J7060; J7500; J7620; S0171